=== PATIENT | female | born 1940 | race Caucasian/White ===

== ENCOUNTER → 2020-10-15 16:04 | Outpatient (BNVA) | payer MEDICARE, OTHER, SELFPAY | PROVIDERS: PCP Nurse Practitioner Family; Visit Provider Internal Medicine | DX: J44.9 Chronic obstructive pulmonary disease, unspecified (principal); J30.9 Allergic rhinitis, unspecified; Z79.51 Long term (current) use of inhaled steroids | CPT/HCPCS: Q3014 ==

== ENCOUNTER → 2021-05-07 16:02 | Outpatient (BNVA) | payer MEDICARE, OTHER, SELFPAY | PROVIDERS: PCP Internal Medicine; Visit Provider Internal Medicine | DX: J44.9 Chronic obstructive pulmonary disease, unspecified (principal); J30.9 Allergic rhinitis, unspecified; Z88.4 Allergy status to anesthetic agent; Z88.0 Allergy status to penicillin | CPT/HCPCS: 99212 ==

== ENCOUNTER → 2021-12-15 15:37 | Outpatient (BNVA) | payer MEDICARE, OTHER, SELFPAY | PROVIDERS: PCP Internal Medicine; Visit Provider Internal Medicine | DX: J44.9 Chronic obstructive pulmonary disease, unspecified (principal); J30.9 Allergic rhinitis, unspecified | CPT/HCPCS: 99212 ==

== ENCOUNTER → 2022-09-08 15:13 | Outpatient (BNVA) | payer MEDICARE, OTHER, SELFPAY | PROVIDERS: PCP Internal Medicine; Visit Provider Internal Medicine | DX: J44.9 Chronic obstructive pulmonary disease, unspecified (principal); J30.9 Allergic rhinitis, unspecified | CPT/HCPCS: 99212 ==

== ENCOUNTER 2023-05-03 13:58 | Outpatient (AMB) | payer MEDICARE, OTHER, SELFPAY ==
--- NOTE | 2023-05-03 14:08 | MHC.OFFVIS ---
Intake Vital Signs 05/03/23 14:09 Height 5 ft 5 in Weight 158 lb BMI 26.3 BP 140/70 H Blood Pressure Location Lt brachial Position Sitting Pulse 76 Pulse Source Pulse Oximeter Pulse Oximetry (%) 96 Oxygen Delivery Method Room Air Intake Visit Reasons: COPD Intake Note: pt is here for follow up and states she feels great, only uses proair prn and that is very rare, but she would like a refill to have current inhaler. Please talk about allergies, and would like refill on nasal spray. please make sure pharmacy is [facility] when it is sent. Soaking Pits Supervisor Required: No Allergies Penicillins [PENICILLINS] Allergy (Intermediate, Verified 05/03/23 14:19) RASH halothane [HALOTHANE] Adverse Reaction (Intermediate, Verified 05/03/23 14:19) ELEVATED LIVER ENZYMES Medication List - Last Reconciled 05/03/23 by Conrado Hampton MD Advair Diskus 100-50 mcg/dose (fluticasone propion-salmeterol) 1 ea PO BID NS albuterol sulfate 90 mcg/actuation 2 puffs PO Q6H PRN lisinopril 20 mg PO DAILY montelukast 10 mg PO DAILY Do you need a note to return to daycare/school/sports/work: No HPI COPD HPI Details 83 years old very pleasant female a long-time patient of mine, comes for routine visit after 6 months. Allergic rhinitis and COPD have been well controlled. She has hardly needed to use albuterol HFA, but needs to renew because the 1 she has at home is . Her locomotion is impaired but she walks around with a cane. Lately she has been walking more than usual and restricting her calories, so she has lost weight. She claims that this is intentional. Now she has good appetite. Luckily she has been free of any infections. [facility] Medical History Hypertension COPD (chronic obstructive pulmonary disease) Allergic rhinitis Surgical History No history of previous surgery Family History Mother No problems noted. Father No problems noted. Social History Housing: House Alcohol intake: never Patient Tobacco Use Status: Never used Tobacco e-Cigarette/Vaping Use: Never Used Second Hand Smoke Exposure: No service: No Current occupational status: retired Cognitive needs: No Hearing needs: No Vision needs: No Review of Systems Const All systems reviewed & are unremarkable except as noted in HPI and below Eyes Reports no additional complaints ENT Reports nasal congestion (Mild nasal congestion off and on) Card Denies chest pain, Denies irregular heart rhythm and Reports leg edema (Mild) Resp Reports as per HPI GI Reports no additional complaints Reports no additional complaints Musc Reports back pain (Chronic) and Reports arthralgias (Chronic in knees) Skin/Breast Reports system reviewed and no additional complaints, except as documented Neuro Reports no additional complaints Psych Reports no additional complaints Physical Exam Vital Signs: Last Vital Signs Pulse 76 05/03/23 14:09 BP 140/70 H 05/03/23 14:09 Pulse Ox 96 05/03/23 14:09 Oxygen Delivery Method Room Air 05/03/23 14:09 BMI result Body Mass Index 26.3 Const General: comfortable, no acute distress, alert and awake Orientation/consciousness: patient oriented x3 HEENT Head: Yes normal to inspection General nose exam: No nasal polyps present and No nasal discharge present Face and sinus: Yes sinuses nontender Mouth: oropharynx normal Throat: Yes posterior oropharynx normal Eyes General: appearance normal, both eyes and all related structures Neck Neck: Yes normal visual inspection, Yes no lymphadenopathy, Yes trachea midline and Yes no JVD Thyroid: Thyroid normal Chest Chest palpation & inspection: normal inspection of the chest, normal palpation of entire chest wall and no tenderness Resp Other: Percussion note is resonant. She has good breath sounds on both sides. No wheezes rhonchi or crepitations are heard. Cardio Palpation: normal PMI Rate: regular rate Rhythm: regular rhythm Heart sounds: no gallops and no murmurs Peripheral pulses: Peripheral pulses 2+ throughout GI Palpation (GI): Soft to palpation, nontender, No hepatosplenomegaly present and no masses Auscultation: normal bowel sounds Back/Spine/Pelvis Thoracic/Lumbar Spine: thoracic and lumbar spine normal to inspection, thoraco-lumbar ROM limited and Thoracic/lumbar scoliosis (Mild dextro) Skin General skin exam: no rashes or lesions noted Neuro General: patient oriented x3 and no focal motor deficits Cranial nerves: Yes CN's II-XII intact bilaterally Extrem General: Yes normal to inspection, Yes no calf tenderness and Yes venous stasis dermatitis (Mild stasis edema of both legs) Psych Speech and movement: Normal speech and movement present Assessment & Plan Assessment & Plan (1) COPD (chronic obstructive pulmonary disease): Comment: 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 Currently it is staying very stable, And is advised to continue her regular medical regime:. [place]: Advair 100-50 1 inhalation b.i.d. Albuterol HFA 2 puffs Q 6 hours only p.r.n. Montelukast 10 mg daily Code(s): J44.9 - Chronic obstructive pulmonary disease, unspecified (2) Allergic rhinitis: Comment: SHE HAS HAD VERY CHRONIC ALLERGIC RHINITIS WHICH HAS IMPROVED OVER THE YEARS. CURRENTLY HER SYMPTOMS ARE WELL CONTROLLED WITH THE MONTELUKAST 10 MG DAILY. SHE DOES NOT HAVE TO USE FLONASE OF OR ANTIHISTAMINIC PILLS. Code(s): J30.9 - Allergic rhinitis, unspecified Coding Level of Care Code Est Pt Level 3 (83238) Diagnoses COPD (chronic obstructive pulmonary disease) J44.9 Allergic rhinitis J30.9
[2023-05-03 14:09] VITALS: BP 140/70; PULSE 76; O2SAT 96; BMI 26.3
== END 2023-05-03 14:29 | disposition home or self-care (01) ==
PROVIDERS: PCP Internal Medicine; Visit Provider Internal Medicine
DX: J44.9 Chronic obstructive pulmonary disease, unspecified (principal); J30.9 Allergic rhinitis, unspecified
CPT/HCPCS: 99213

== ENCOUNTER → 2023-05-03 13:58 | Outpatient (BNVA) | payer MEDICARE, OTHER, SELFPAY | PROVIDERS: PCP Internal Medicine; Visit Provider Internal Medicine | DX: J44.9 Chronic obstructive pulmonary disease, unspecified (principal); J30.9 Allergic rhinitis, unspecified; Z79.899 Other long term (current) drug therapy | CPT/HCPCS: 99212 ==

== ENCOUNTER 2023-12-12 14:35 | Outpatient (AMB) | payer MEDICARE, OTHER, SELFPAY ==
[2023-12-12 14:44] VITALS: BP 128/68; PULSE 64; O2SAT 97; BMI 25.8
--- NOTE | 2023-12-12 14:44 | A.OFFVIS_ITS ---
Vital Signs 12/12/23 14:44 Height 5 ft 5 in Weight 155 lb BMI 25.8 BP 128/68 Blood Pressure Location Lt brachial Position Sitting Pulse 64 Pulse Source Pulse Oximeter Pulse Oximetry (%) 97 Oxygen Delivery Method Room Air Intake Visit Reasons: COPD Intake Note: pt is here for follow up and states she is feeling fine Hogshead Weigher Required: No Allergies Penicillins [PENICILLINS] Allergy (Intermediate, Verified 12/12/23 15:01) RASH halothane [HALOTHANE] Adverse Reaction (Intermediate, Verified 12/12/23 15:01) ELEVATED LIVER ENZYMES Medication List - Last Reconciled 12/12/23 by Conrado Hampton MD albuterol sulfate 90 mcg/actuation 2 puffs inhalation Q4-6H PRN 60 days fluticasone propion-salmeterol 100-50 mcg/dose 1 ea PO BID NS lisinopril 20 mg PO DAILY montelukast 10 mg PO DAILY Do you need a note to return to daycare/school/sports/work: No HPI HPI COPD: Details: KEELY IS 83 YEARS OLD FEMALE COMES AFTER 6 MONTHS. FOR HER ROUTINE FOLLOW-UP SHE STATES THAT HER CONDITION HAS BEEN STABLE AND WELL CONTROLLED. SHE DENIES ANY RUNNY NOSE OR SNEEZING. DENIES COUGH OR EXPECTORATION. SHE DOES GET SHORT OF BREATH ON WALKING FAST. BUT HER LOCOMOTION IS SLOW AND SHE WALKS WITH A WALKER ANYWAY. SHE IS HAPPY THAT SHE HAS NOT HAD ANY ACUTE EXACERBATION OR INFECTION. [facility] Medical History Hypertension COPD (chronic obstructive pulmonary disease) Allergic rhinitis Surgical History No history of previous surgery Family History Mother No problems noted. Father No problems noted. Social History Housing: House Alcohol intake: never Patient Tobacco Use Status: Never used Tobacco e-Cigarette/Vaping Use: Never Used Second Hand Smoke Exposure: No service: No Current occupational status: retired Cognitive needs: No Hearing needs: No Vision needs: No Review of Systems Const All systems reviewed & are unremarkable except as noted in HPI and below Eyes Reports no additional complaints ENT Reports nasal congestion (Mild nasal congestion off and on) Card Denies chest pain, Denies irregular heart rhythm and Reports leg edema (Mild) Resp Reports as per HPI GI Reports no additional complaints Reports no additional complaints Musc Reports back pain (Chronic) and Reports arthralgias (Chronic in knees) Skin/Breast Reports system reviewed and no additional complaints, except as documented Neuro Reports no additional complaints Psych Reports no additional complaints Physical Exam Vital Signs: Last Vital Signs Pulse 64 12/12/23 14:44 BP 128/68 12/12/23 14:44 Pulse Ox 97 12/12/23 14:44 Oxygen Delivery Method Room Air 12/12/23 14:44 BMI result Body Mass Index 25.8 Const General: comfortable, no acute distress, alert and awake Orientation/consciousness: patient oriented x3 HEENT Head: Yes normal to inspection General nose exam: No nasal polyps present and No nasal discharge present Face and sinus: Yes sinuses nontender Mouth: oropharynx normal Throat: Yes posterior oropharynx normal Eyes General: appearance normal, both eyes and all related structures Neck Neck: Yes normal visual inspection, Yes no lymphadenopathy, Yes trachea midline and Yes no JVD Thyroid: Thyroid normal Chest Chest palpation & inspection: normal inspection of the chest, normal palpation of entire chest wall and no tenderness Resp Other: Percussion note is resonant. She has good breath sounds on both sides. No wheezes rhonchi or crepitations are heard. Cardio Palpation: normal PMI Rate: regular rate Rhythm: regular rhythm Heart sounds: no gallops and no murmurs Peripheral pulses: Peripheral pulses 2+ throughout GI Palpation (GI): Soft to palpation, nontender, No hepatosplenomegaly present and no masses Auscultation: normal bowel sounds Back/Spine/Pelvis Thoracic/Lumbar Spine: thoracic and lumbar spine normal to inspection, thoraco- lumbar ROM limited and Thoracic/lumbar scoliosis (Mild dextro) Skin General skin exam: no rashes or lesions noted Neuro General: patient oriented x3 and no focal motor deficits Cranial nerves: Yes CN's II-XII intact bilaterally Extrem General: Yes normal to inspection, Yes no calf tenderness and Yes venous stasis dermatitis (Mild stasis edema of both legs) Psych Speech and movement: Normal speech and movement present Assessment & Plan Assessment & Plan (1) COPD (chronic obstructive pulmonary disease): Comment: 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 Currently it is staying very stable, And is advised to continue her regular medical regime:. Code(s): J44.9 - Chronic obstructive pulmonary disease, unspecified Category: Medical Plan: [place]: Advair 100-50 1 inhalation b.i.d. Albuterol HFA 2 puffs Q 6 hours only p.r.n. Montelukast 10 mg daily (2) Allergic rhinitis: Comment: SHE HAS HAD VERY CHRONIC ALLERGIC RHINITIS WHICH HAS IMPROVED OVER THE YEARS. CURRENTLY HER SYMPTOMS ARE WELL CONTROLLED WITH THE MONTELUKAST 10 MG DAILY. SHE DOES NOT HAVE TO USE FLONASE OF OR ANTIHISTAMINIC PILLS. Code(s): J30.9 - Allergic rhinitis, unspecified Category: Medical Plan: I DISCUSSED WITH FOR POSSIBILITY OF DISCONTINUING MONTELUKAST. SHE ACTUALLY DOES NOT WANT TO TAKE A CHANCE. AND PREFERS TO CONTINUE MONTELUKAST 10 MG DAILY. Coding Level of Care Code Est Pt Level 3 (84509) Diagnoses COPD (chronic obstructive pulmonary disease) J44.9 Allergic rhinitis J30.9
== END 2023-12-12 15:30 ==
PROVIDERS: PCP Internal Medicine; Visit Provider Internal Medicine
DX: J44.9 Chronic obstructive pulmonary disease, unspecified (principal); J30.9 Allergic rhinitis, unspecified
CPT/HCPCS: 99213

== ENCOUNTER → 2023-12-12 14:35 | Outpatient (BNVA) | payer MEDICARE, OTHER, SELFPAY | PROVIDERS: PCP Internal Medicine; Visit Provider Internal Medicine | DX: J44.9 Chronic obstructive pulmonary disease, unspecified (principal); J30.9 Allergic rhinitis, unspecified | CPT/HCPCS: 99212 ==

== ENCOUNTER 2024-04-12 13:37 | Outpatient (AMB) | payer MEDICARE, OTHER, SELFPAY ==
[2024-04-12 13:42] VITALS: BP 140/82; PULSE 52; TEMP 36.7; O2SAT 95; BMI 24.6
--- NOTE | 2024-04-12 13:42 | AM.OFFWIN_ITS ---
Intake Vital Signs 04/12/24 13:42 Height 5 ft 5 in Weight 148 lb BMI 24.6 BP 140/82 H Blood Pressure Location Lt brachial Position Sitting Pulse 52 Pulse Source Pulse Oximeter Temp 98.0 F Temp Source Oral Pulse Oximetry (%) 95 Oxygen Delivery Method Room Air Intake Visit Reasons: SENIOR ADVOCATE Sore on leg, infected? Intake Note: pt c/o sore on LT leg. ? infection. Ongoing issues. From scratching rash Patient Tobacco Use Status: Never used Tobacco Allergies Penicillins [PENICILLINS] Allergy (Intermediate, Verified 04/12/24 13:48) RASH halothane [HALOTHANE] Adverse Reaction (Intermediate, Verified 04/12/24 13:48) ELEVATED LIVER ENZYMES Do you need a note to return to daycare/school/sports/work: No HPI HPI Comments History of Present Illness Details 84 y/o female patient who presents to [facility] walk in clinic with c/o left lower extremity swelling, redness, tender and open skin. Pt reports noticing her leg changing in past 2-3 weeks now. Noticed open skin sores draining pus. She has not a doctor in over a year now. She is a new patient to [facility] and not much is known about her health. She does endorse HTN and takes Lisinopril plus COPD and currently uses Inhalers. Denies Kidney failure or disease. Denies CHF, HF, liver failure. [facility] Medical History Hypertension COPD (chronic obstructive pulmonary disease) Allergic rhinitis Surgical History No history of previous surgery Family History Mother No problems noted. Father No problems noted. Social History Housing: House Alcohol intake: never Patient Tobacco Use Status: Never used Tobacco e-Cigarette/Vaping Use: Never Used Second Hand Smoke Exposure: No service: No Current occupational status: retired Cognitive needs: No Hearing needs: No Vision needs: No Review of Systems Const All systems reviewed & are unremarkable except as noted in HPI and below Physical Exam Vital Signs: Last Vital Signs Temp 98.0 F 09/12/24 13:42 Pulse 52 04/12/24 13:42 BP 140/82 H 04/12/24 13:42 Pulse Ox 95 04/12/24 13:42 Oxygen Delivery Method Room Air 04/12/24 13:42 BMI result Body Mass Index 24.6 Const General: cooperative and no acute distress Orientation/consciousness: patient oriented x3 Limitations: ambulation with walker Skin General skin exam: erythema and induration Neuro General: patient oriented x3 and gait normal (Ambulates with Walker) Extrem Right lower extremity: lower leg Details: pitting edema Details: 1+; no tenderness Left lower extremity: full ROM and lower leg (two large open sores right leg, with redness and pus) Details: erythema Location: of the proximal lower leg, of the mid lower leg and of the distal lower leg, tenderness Location: of the posterior calf, of the proximal tibia, of the midshaft tibia and of the distal tibia, pitting edema (Skin firm/hard edema and tenderness.) Details: 2+ and warmth Psych Speech and movement: Normal speech and movement present Assessment & Plan Assessment & Plan (1) Peripheral edema: Code(s): R60.0 - Localized edema Plan: DDx's: Cellulitis vs Venous Stasis Dermatitis vs MRSA Advised Pt to go to the ED for further evaluation. She might need IV Abx. Pt's Son will be driving her to the ED. Coding Level of Care Code New Pt Level 3 (84373) Diagnoses Peripheral edema R60.0 Time Spent (min) 15
== END 2024-04-12 14:11 | disposition home or self-care (01) ==
PROVIDERS: PCP Internal Medicine; Visit Provider Nurse Practitioner Family
DX: R60.0 Localized edema (principal)
CPT/HCPCS: 99203

== ENCOUNTER 2024-04-12 14:27 | Inpatient (IN) | payer MEDICARE, OTHER, SELFPAY ==
--- NOTE | ~2024-04-12 | US_ITS ---
EXAMINATION: US TRIPLEX LOWER EXTREMITY, LEFT CLINICAL INFORMATION: Redness COMPARISON: None available. TECHNIQUE: Color-flow triplex imaging with spectral analysis and compression Doppler were performed on the left lower extremity. FINDINGS: Deep venous thrombosis is noted in the left common femoral vein through the level of the popliteal vein which appears occlusive at the level of the mid femoral vein. There is loss of phasicity on spectral Doppler in the left common femoral vein suggesting the deep venous thrombus may extend centrally.. The peroneal and posterior tibial veins are not identified. Moderate subcutaneous edema in the left lower extremity. The contralateral right common femoral vein demonstrates normal phasicity. There is no Cantu's cyst. US/US venous duplex LE IMPRESSION: 1. Deep venous thrombosis is noted in the left common femoral vein through the level of the popliteal vein which appears occlusive at the level of the mid femoral vein. There is loss of phasicity on spectral Doppler in the left common femoral vein suggesting the deep venous thrombus may extend centrally into the pelvis. The peroneal and posterior tibial veins are not identified. 2. The contralateral right common femoral vein demonstrates normal phasicity. 3. Moderate subcutaneous edema in the left lower extremity. The findings and recommendations were discussed with ALONZO Reagan by telephone at 04/12/2024 4:31 PM CDT and it was ascertained that the content and urgency of the report was understood at the time of direct communication. Electronically signed by: Leslie Ladd MD 04/12/2024 05:32 PM EDT
--- NOTE | ~2024-04-12 | XR_ITS ---
STUDY: Tibia/fibula radiographs. HISTORY: Left leg redness. Question osteomyelitis. TECHNIQUE: 4 radiographs of the left tibia and fibula were performed. COMPARISON: None available. FINDINGS: No fracture or dislocation. No evidence of osteomyelitis. There is severe degenerative disease of the left knee joint. The regional soft tissue appears grossly normal. XR/XR tibia fibula LT 2V IMPRESSION: No fracture or dislocation. No evidence of osteomyelitis. 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 Electronically signed by: Anish Hood DO 04/12/2024 06:20 PM EDT
--- NOTE | ~2024-04-12 | CT_ITS ---
EXAMINATION: CT ANGIOGRAM CHEST CLINICAL INFORMATION: Reason for Exam large DVT COMPARISON: 06/22/2019 TECHNIQUE: Multiple axial images were obtained through the chest after the administration of 65 mL of Omnipaque 350 intravenous contrast. Extensive vascular post-processing including two-dimensional and three-dimensional reformatted images were created and reviewed on an independent workstation. This CT examination was performed using dose optimization techniques as appropriate, variously including the following: *Automated exposure control *Adjustment of mA and/or kV according to patient size (this includes techniques or standardized protocols for targeted exams where dose is matched to indication/reason for exam; i.e. extremities or head) *Use of iterative reconstruction technique DLP: 225 mGy-cm FINDINGS: No filling defects are seen in the main, lobar, or segmental pulmonary arteries to suggest the presence of pulmonary emboli. Prominent ascending aorta measuring approximately 4.0 cm in diameter. Scattered atherosclerotic calcification is present. There are regions of curvilinear opacity in the right middle and lower lobes with some associated volume loss, suspicious for atelectasis and/or scarring. Mild atelectasis is present at the left lung base. There is an approximately 3 mm nodule in the superior left lower lobe on image 150/451 which appears similar to slightly less prominent than on the prior examination, favoring a benign etiology. A few tiny calcified nodules bilaterally favor benign granulomas. No pneumothorax or pleural effusion. The visualized thyroid gland is unremarkable. There are subcentimeter mediastinal lymph nodes within the range of normal variation. Cardiac size is within normal limits; no pericardial effusion. No axillary lymphadenopathy is present. Included upper abdomen is grossly unremarkable. Degenerative changes are noted in the spine. CT/CT angio chest PE protocol IMPRESSION: 1. No pulmonary embolus identified. 2. Prominent ascending aorta measuring approximately 4.0 cm in diameter. 3. Regions of curvilinear opacity in the right middle and lower lobes with some associated volume loss, suspicious for atelectasis and/or scarring. Electronically signed by: Kip Terrell MD 04/13/2024 12:01 AM EDT RACHEL
[2024-04-12 15:11] VITALS: BP 188/76; PULSE 70; RESP 16; TEMP 36.9; O2SAT 98; BMI 23.9
--- NOTE | 2024-04-12 15:15 | ED_ITS ---
HPI - General Adult General Chief complaint: Skin/Abscess/Foreign Body Stated complaint: L leg infection Time Seen by Provider: 04/12/24 17:51 Source: patient, RN notes reviewed and old records reviewed Mode of arrival: ambulatory Limitations: no limitations History of Present Illness ED Provider: Ten PENA narrative: 84-year-old female with past medical history significant for hypertension, COPD, chronic dermatitis presents for evaluation of left leg swelling and redness. Patient reports she has had itching to the left lower leg for the last several weeks. Patient states that she accidentally broke through the skin while scratching her left lower leg towards the outside Since then her left lower leg has become significantly more swollen compared to the right She still has some itching but is now experiencing redness She denies any pain to the left leg She denies any chest pain, shortness of breath, cough She denies any history of DVT or PE, she is not anticoagulated She also denies any fevers or chills Related Data Previous Rx's ?Medication ?Instructions ?Recorded montelukast 10 mg tablet 10 mg PO DAILY #90 tabs 10/31/22 lisinopril 20 mg tablet 20 mg PO DAILY #90 tabs 02/28/23 albuterol sulfate 90 mcg/actuation 2 puff inhalation Q4-6H PRN 05/03/23 aerosol inhaler shortness of breath or wheezing 60 days #8.5 grams fluticasone 100 mcg-salmeterol 50 1 ea PO BID copd 90 days #60 ea 01/30/24 mcg/dose blistr powdr for inhalation Allergies Allergy/AdvReac Type Severity Reaction Status Date / Time Penicillins [PENICILLINS] Allergy Intermediate RASH Verified 04/12/24 15:11 halothane [HALOTHANE] AdvReac Intermediate ELEVATED Verified 04/12/24 15:11 LIVER ENZYMES Review of Systems 2 Constitutional: Constitutional: Denies body ache(s), Denies chills and Denies fever(s) Cardiovascular: Cardiovascular: Denies chest pain, Reports leg edema and Denies dyspnea Respiratory: Respiratory: Denies cough and Denies dyspnea Integumentary/Breasts: Skin/Breast: Reports pruritus and Reports erythema PMFSH Past Medical History Medical History Hypertension COPD (chronic obstructive pulmonary disease) Allergic rhinitis Surgical History No history of previous surgery Family History Family History Mother No problems noted. Father No problems noted. Social History Social History Housing: House Alcohol intake: never Patient Tobacco Use Status: Never used Tobacco e-Cigarette/Vaping Use: Never Used Second Hand Smoke Exposure: No Advance Directives: No Advance Directives Information Provided: No Do you have a plan to hurt others: No Plan service: No Current occupational status: retired Cognitive needs: No Hearing needs: No Vision needs: No Physical Exam ED Vital Signs: Vital Signs - 24 hr 04/12/24 15:11 04/12/24 23:05 Temperature 98.5 F 97.7 F Pulse Rate 70 72 Respiratory Rate 16 20 Blood Pressure 188/76 H 140/53 H Pulse Oximetry 98 96 Oxygen Delivery Method Room Air Room Air BMI result Body Mass Index 24.4 Const General: healthy appearing, comfortable, no acute distress, alert and awake Nutritional Appearance: well nourished Orientation/consciousness: patient oriented x3 HENMT Head: Yes normocephalic and Yes atraumatic Eyes Eyelids: Yes eyelids normal Conjunctivae: conjunctivae normal Sclerae: sclerae normal Corneas: corneas normal Pupils: Equal, round and reactive pupils present EOM: EOMs intact bilaterally Resp Effort & Inspection: normal respiratory effort, able to speak in complete sentences, no audible wheezes and not labored Auscultation: clear to auscultation bilaterally Cardio Other: 2 to 3+ pitting edema to the left lower extremity Rate: regular rate Rhythm: regular rhythm Skin Other: Patient has 2 separate scabbed areas to the left lower lateral leg. There is some surrounding erythema extending approximately 10 cm in diameter to the left lateral lower leg. There is no calf tenderness General skin exam: elasticity normal Neuro General: patient oriented x3 Cranial nerves: Yes Equal, round and reactive pupils present and Yes Bilaterally intact EOM present Cognition (Neuro): normal cognition Course Course Course Narrative: RME: Done by ALONZO Griggs. 84-year-old female presents to ED for left leg redness and swelling for the past 3 weeks after scratching it. Patient has a left leg ulcer slightly oozing on exam. Left leg redness swelling and tender. Labs ultrasound x-ray ordered. Reevaluation(s) Reevaluation #1: Given the extensive DVT on ultrasound, CT is still pending, but I discussed with Dr. Stern regarding the DVT. He would like the patient admitted on a heparin drip for the DVT and admitted to the medical service, NPO after midnight for declotting tomorrow. I did discuss this with the patient and she is aware Time: 20:36 Medications Administered Generic Name Dose Route Start Last Admin Trade Name Freq PRN Reason Stop Dose Admin Heparin Sodium/Sodium Chloride 25,000 unit in 250 mls @ 0 mls/hr 04/12/24 21:00 04/12/24 21:15 Heparin Sodium,Porcine/1/2ns IVCONT 14 units/kg/hr .Q0M JHONNY 9.62 mls/hr Administration Protocol Per Protocol Discontinued Medications Generic Name Dose Route Start Last Admin Trade Name Freq PRN Reason Stop Dose Admin Heparin Sodium (Porcine) 5,500 unit 04/12/24 20:51 04/12/24 21:17 Heparin Sodium,Porcine 5,000 Unit/Ml Vial 80 unit/kg (5500 unit) 04/12/24 20:52 5,500 unit IVPUSH Administration ONCE ONE Iohexol 65 ml 04/12/24 20:42 04/12/24 20:43 Iohexol 350 Mg/Ml 100 Ml Infus..Btl IV 04/12/24 20:43 65 ml ONCE ONE Administration Medical Decision Making Medical Decision Making [facility] Narrative: 84-year-old female presents for evaluation of left leg redness, swelling. She has no pain. She is afebrile. She did scratching break the skin. She has no leukocytosis. There is some surrounding erythema. She had an ultrasound ordered in triage which shows a large DVT of the left lower extremity. Given how extensive the DVT is, despite the patient not having any respiratory symptoms I ordered a CT angiography of the chest. Will discuss with vascular. The patient may have mild cellulitis surrounding the scratches/abrasions to the left lower lateral leg. There was no evidence of sepsis. Differential Diagnosis Differential Diagnoses: The differential diagnosis associated with the presentation includes DVT Cellulitis Dermatitis PE Admission/Observation Consideration of admission/observation: Escalation of care including admission/observation considered Consult Healthcare Provider Management of the patient was discussed with: Eligibility Counselor Lab Data MDM Lab Attestation statement: I reviewed the patient's lab results. No leukocytosis or anemia. Normal platelet count. No electrolyte abnormalities. Normal renal function 04/12/24 15:49 04/12/24 15:49 Labs: Lab Results 04/12/24 04/12/24 Range/Units 15:49 21:09 WBC 8.0 (4.8-10.8) X10*3/uL RBC 4.55 (4.20-5.50) X10*6/uL Hgb 14.2 (12.0-16.0) g/dl Hct 42.4 (37.0-47.0) % MCV 93.2 (80.0-98.0) fL MCH 31.2 (27.0-33.0) pg MCHC 33.5 (31.0-35.0) g/dl RDW 12.6 (11.0-16.0) % Plt Count 322 (160-400) X10*3/uL MPV 9.6 (9.4-12.3) fL Immature Gran % (Auto) 0.7 H (0.0-0.4) % Neut % (Auto) 75.5 H (45-73) % Lymph % (Auto) 12.8 L (20-40) % [place] % (Auto) 6.1 (2-11) % Eos % (Auto) 3.9 (0-4) % Baso % (Auto) 1.0 (0-2) % Lymph # (Auto) 1.0 L (1.2-4.9) X10*3/uL [place] # (Auto) 0.5 (0.1-1.2) X10*3/uL Eos # (Auto) 0.3 (0.0-0.4) X10*3/uL Baso # (Auto) 0.1 (0.0-0.2) X10*3/uL Abs Immat Gran (auto) 0.06 H (0.00-0.03) X10*3/uL Absolute Neuts (auto) 6.1 (2.0-8.3) x10*3/uL Absolute Nucleated RBC 0.000 (0.0-0.012) X10*3/uL Nucleated RBC % (auto) 0.0 (0.0-0.2) /100WBC ESR 16 (0-20) MM/HR PT 11.3 (11.1-13.3) SEC INR 0.9 (0.9-1.1) APTT 32.3 (26.0-36.8) SEC aPTT Heparin Protocol 34.5 L (53-77.9) SEC Sodium 143 (135-145) mmol/L Potassium 4.5 (3.3-5.1) mmol/L Chloride 108 (96-108) mmol/L Carbon Dioxide 26 (22-29) mmol/L Anion Gap 14 (12-20) BUN 13 (9-16) mg/dL Creatinine 1.05 (0.5-1.4) mg/dL Estim Creat Clear Calc 37.3 Estimated GFR 50 Random Glucose 100 (60-115) mg/dL Calcium 10.0 (8.4-10.2) mg/dL Total Bilirubin 0.5 (0.0-1.0) mg/dL AST 17 (5-31) U/L ALT 12 (0-31) U/L Alkaline Phosphatase 79 (39-117) U/L C-Reactive Protein 0.18 (< or = 0.50) mg/dL Total Protein 7.0 (6.5-8.0) g/dL Albumin 4.3 (3.5-5.0) g/dL Independent Interpretation I performed an independent interpretation of an: CT Scan Interpretation: Agree with Radiology interpretation Radiology Impression Discussion of test interpretation with radiology: I have reviewed the radiologist's reading. Radiologist Impression: CT/CT angio chest PE protocol IMPRESSION: 1. No pulmonary embolus identified. 2. Prominent ascending aorta measuring approximately 4.0 cm in diameter. 3. Regions of curvilinear opacity in the right middle and lower lobes with some associated volume loss, suspicious for atelectasis and/or scarring. Discharge Plan Discharge Clinical Impression: Acute deep vein thrombosis of left lower extremity Patient Disposition: Admitted As Inpatient Print Language: Belgian
[2024-04-12 15:53] LABS: MANUAL DIFF FLAG NO
[2024-04-12 15:54] LABS: Eosinophils Absolute Auto 0.3 X10*3/uL (0.0-0.4); Eosinophils Percent Auto 3.9 % (0-4); Hematocrit 42.4 % (37.0-47.0); Hemoglobin 14.2 g/dl (12.0-16.0); Imm Gran Abs Auto 0.06 X10*3/uL (0.00-0.03); Imm Gran Pct Auto 0.7 % (0.0-0.4); Lymphocytes Percent Auto 12.8 % (20-40); Mean Corpuscular HGB Conc 33.5 g/dl (31.0-35.0); Mean Corpuscular Hemoglobin 31.2 pg (27.0-33.0); Mean Corpuscular Volume 93.2 fL (80.0-98.0); Mean Platelet Volume 9.6 fL (9.4-12.3); Monocytes Absolute Auto 0.5 X10*3/uL (0.1-1.2); Monocytes Percent Auto 6.1 % (2-11); Neutrophils Absolute Auto 6.1 x10*3/uL (2.0-8.3); Neutrophils Percent Auto 75.5 % (45-73); Platelet Count 322 X10*3/uL (160-400); Red Blood Count 4.55 X10*6/uL (4.20-5.50); Red Cell Distribution Width 12.6 % (11.0-16.0)
[2024-04-12 15:55] LABS: Basophils Absolute Auto 0.1 X10*3/uL (0.0-0.2)
[2024-04-12 16:10] LABS: Alanine Aminotransferase 12 U/L (0-31); Albumin Level 4.3 g/dL (3.5-5.0); Alkaline Phosphatase 79 U/L (39-117); Anion Gap 14 (12-20); Aspartate Amino Transferase 17 U/L (5-31); Bilirubin Total 0.5 mg/dL (0.0-1.0); Blood Urea Nitrogen 13 mg/dL (9-16); C Reactive Protein 0.18 mg/dL (< or = 0.50); Carbon Dioxide 26 mmol/L (22-29); Chloride 108 mmol/L (96-108); Creatinine Clr Calc Pharmacy 37.3; Estimated Glomerular Filt Rate 50; Glucose Random 100 mg/dL (60-115); Potassium 4.5 mmol/L (3.3-5.1); Sodium 143 mmol/L (135-145)
[2024-04-12 16:11] LABS: INTERNATIONAL NORM RATIO 0.9 (0.9-1.1); Prothrombin Time 11.3 SEC (11.1-13.3)
[2024-04-12 16:14] LABS: Partial Thromboplastin Time 32.3 SEC (26.0-36.8)
[2024-04-12 16:32] LABS: Erythrocyte Sedimentation Rate 16 MM/HR (0-20)
[2024-04-12] MEDS: iohexoL 350 MG/ML 100 ML INFUS..BTL 65 ML IV (20:43)
[2024-04-12 20:44] VITALS: BMI 24.4
[2024-04-12] MEDS: Heparin Sodium,Porcine/1/2NS 25,000 UNIT/250 ML IV.SOLN 9.62 UNIT IVCONT (21:15)
[2024-04-12] MEDS: Heparin Sodium,Porcine 5,000 UNIT/ML VIAL 5500 UNIT IVPUSH (21:17)
[2024-04-12 21:32] LABS: PTT Heparin Drip 34.5 SEC (53-77.9)
[2024-04-12 23:05] VITALS: BP 140/53; PULSE 72; RESP 20; TEMP 36.5; O2SAT 96
[2024-04-13] VITALS (10 sets, daily range): BP systolic 115–148; BP diastolic 50–74; PULSE 40–88; RESP 12–18; TEMP 36–37.1; O2SAT 94–99
--- NOTE | 2024-04-13 01:26 | P.HPHOSP_ITS ---
History of Present Illness Date of Service: 04/13/24 Chief Complaint: left leg swelling and redness An 84-year-old female with COPD and hypertension who presented to her PCP's office with 3 weeks of noticing her leg changing. She reported increased swelling in the left leg, along with recent itching and redness, but no pain. Upon evaluation at the PCP office, there was concern for cellulitis, and she was sent to the ED for possible IV antibiotics. A DVT study of the left leg showed Deep venous thrombosis is noted in the left common femoral vein through the level of the popliteal vein, which appears occlusive at the level of the mid femoral vein. There is loss of phasicity on spectral Doppler in the left common femoral vein, suggesting the deep venous thrombus may extend centrally into the pelvis. IV heparin was initiated, and vascular surgery was notified. Dr. Manzo is planning declotting in the morning. She has no recent long trips, no personal history of VTEs, and is not sedentary. A CT of the chest show no PE Review of Systems 2 Review of Systems: Gen: no fever Resp: no sob, no cough CV: no chest, no STAUFFER, no leg edema GI: No n/v, no abd pain Neuro: No confusion MS: swelling inthe left leg Yes all other systems are reviewed and are negative FORMERLY [facility], [facility]1983 Medical History Hypertension COPD (chronic obstructive pulmonary disease) Allergic rhinitis Family History Mother No problems noted. Father No problems noted. Surgical History No history of previous surgery Social History Household Members: Children Housing: House Do you presently have visiting nurse or other home services: No Alcohol intake: never Patient Tobacco Use Status: Never used Tobacco e-Cigarette/Vaping Use: Never Used Second Hand Smoke Exposure: No service: No Current occupational status: retired Cognitive needs: No Hearing needs: No Vision needs: No Meds Allergies Allergy/AdvReac Type Severity Reaction Status Date / Time Penicillins [PENICILLINS] Allergy Intermediate RASH Verified 04/13/24 12:46 halothane [HALOTHANE] AdvReac Intermediate ELEVATED Verified 04/13/24 12:46 LIVER ENZYMES Active Medications: Current Medications Heparin Sodium (Porcine) (Heparin Sodium,Porcine 5,000 Unit/Ml Vial) 2,700 unit 40 unit/kg (2700 unit) IVPUSH PROTOCOL BOLUS PRN; Protocol PRN Reason: 40 unit/kg - Heparin Protocol Heparin Sodium (Porcine) (Heparin Sodium,Porcine 5,000 Unit/Ml Vial) 5,500 unit 80 unit/kg (5500 unit) IVPUSH PROTOCOL BOLUS PRN; Protocol PRN Reason: 80 unit/kg - Heparin Protocol Heparin Sodium/Sodium Chloride (Heparin Sodium,Porcine/1/2ns) 25,000 unit in 250 mls @ 0 mls/hr IVCONT .Q0M JHONNY; Protocol Last Admin: 04/12/24 21:15 Dose: 14 units/kg/hr, 9.62 mls/hr Physical Exam 2 Vital Signs and Narrative: Vital Signs: Last Vital Signs Temp 97.7 F 04/12/24 23:05 Pulse 72 04/12/24 23:05 Resp 20 04/12/24 23:05 BP 140/53 H 04/12/24 23:05 Pulse Ox 96 04/12/24 23:05 O2 Del Method Room Air 04/12/24 23:05 BMI result Body Mass Index 24.4 Const: Other: Constitutional: Alert, in no distress Mental Status: Oriented to person, place and time. Eyes: Pupils are equal, round and reactive to light. Ear, Nose and Throat: Oropharynx clear, mucous membranes moist. Ears and nose without deformities. Trachea midline. Respiratory: Clear to auscultation. No wheezing, rales or rhonchi. Cardiovascular: S1 S2 regular. No murmurs, rubs or gallops. Gastrointestinal: Abdomen soft, non-tender, non-distended. Normal bowel sounds.? Neurologic: Cranial nerves II-XII grossly intact. No focal neurological deficits. Moves all extremities spontaneously.? Skin: redness of the left leg--see pic Musculoskeletal: No cyanosis or clubbing. Psychiatric: Normal mood and affect? Results Labs 04/13/24 03:06 04/13/24 03:06 Labs: Laboratory Results - last 24 hr 04/12/24 04/12/24 15:49 21:09 MCV 93.2 MCH 31.2 MCHC 33.5 RDW 12.6 Plt Count 322 MPV 9.6 Immature Gran % (Auto) 0.7 H Neut % (Auto) 75.5 H Lymph % (Auto) 12.8 L [place] % (Auto) 6.1 Eos % (Auto) 3.9 Baso % (Auto) 1.0 Lymph # (Auto) 1.0 L [place] # (Auto) 0.5 Eos # (Auto) 0.3 Baso # (Auto) 0.1 Abs Immat Gran (auto) 0.06 H Absolute Neuts (auto) 6.1 Absolute Nucleated RBC 0.000 Nucleated RBC % (auto) 0.0 ESR 16 PT 11.3 INR 0.9 APTT 32.3 aPTT Heparin Protocol 34.5 L Anion Gap 14 Estim Creat Clear Calc 37.3 Estimated GFR 50 Random Glucose 100 Calcium 10.0 Total Bilirubin 0.5 AST 17 ALT 12 Alkaline Phosphatase 79 C-Reactive Protein 0.18 Total Protein 7.0 Albumin 4.3 Imaging Radiologist's Impressions: Impressions Tibia/Fibula X-Ray 04/12/24 15:13 IMPRESSION: No fracture or dislocation. No evidence of osteomyelitis. 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 Electronically signed by: Anish Hood DO 04/12/2024 06:20 PM EDT RP Venous Duplex 04/12/24 16:09 IMPRESSION: 1. Deep venous thrombosis is noted in the left common femoral vein through the level of the popliteal vein which appears occlusive at the level of the mid femoral vein. There is loss of phasicity on spectral Doppler in the left common femoral vein suggesting the deep venous thrombus may extend centrally into the pelvis. The peroneal and posterior tibial veins are not identified. 2. The contralateral right common femoral vein demonstrates normal phasicity. 3. Moderate subcutaneous edema in the left lower extremity. The findings and recommendations were discussed with ALONZO Reagan by telephone at 04/12/2024 4:31 PM CDT and it was ascertained that the content and urgency of the report was understood at the time of direct communication. Electronically signed by: Leslie Ladd MD 04/12/2024 05:32 PM EDT RP Chest CTA 04/12/24 19:19 IMPRESSION: 1. No pulmonary embolus identified. 2. Prominent ascending aorta measuring approximately 4.0 cm in diameter. 3. Regions of curvilinear opacity in the right middle and lower lobes with some associated volume loss, suspicious for atelectasis and/or scarring. Electronically signed by: Kip Terrell MD 04/13/2024 12:01 AM EDT RP Assessment and Plan (1) Acute deep vein thrombosis of left lower extremity: Status: Acute (2) Hypertension: Status: Acute (3) COPD (chronic obstructive pulmonary disease): Status: Acute Plan 84/F with unprovoked Left leg DVT, and superimposed cellulitis of the limb Extensive DVT of the left lower extremity, no PE on CT -IV heparin to be transitioned to eliquis for dc -Vascular consult for declotting -NPO Cellulitis of the left leg -IV doxycyline HTN-BP ok -resume Lisinopril in the morning h/o COPD/asthma--no exacerbation -continue home inhalers DVT p: heparin Full code need for inpatient: IV heparin for extensive acute dvt and need for intervention Quality Stroke Does the patient have a stroke diagnosis?: No VTE Prior VTE?: No VTE Risk Level:: Medical - moderate - high VTE Device Contraindication: Treatment Not Indicated VTE Drug Contraindication: N/A - Med Ordered
--- OUTSIDE RECORDS SUMMARY | 2024-04-13 01:56 | XMS_ITS ---
Author Organization [facility] Address [address] [place] [address] Care Team Providers Care Wine Specialist Name Role Phone Boubacar Delarosa MD Primary Care Provider Unavaila Concepción Maldonado Unavailable [phone] REASON FOR VISIT cx 01/25/2024 Encounters Encounter Location Date Provider Diagnosis [facility] [address] [place] [address] 01/23/2024 Concepción Solis PLAN OF TREATMENT No Information
--- OUTSIDE RECORDS SUMMARY | 2024-04-13 01:56 | XMS_ITS ---
Author Organization [facility] Address [address] [place] [address] Care Team Providers Care Oxygen Therapist Name Role Phone Boubacar Delarosa MD Primary Care Provider Unavaila Concepción Maldonado Unavailable [phone] Encounters Encounter Location Date Provider Diagnosis [facility] [address] [place] [address] 01/25/2024 Concepción Solis PLAN OF TREATMENT No Information
--- OUTSIDE RECORDS SUMMARY | 2024-04-13 01:56 | XMS_ITS | Patient Health Record ---
Author Organization [facility] Address [address] [place] [address] Care Team Providers Care Home Care Manager Rn Name Role Phone Boubacar Delarosa MD Primary Care Provider Concepción Law Unavailable [phone] ALLERGIES Allergen (clinical drug ingredient) Drug/Non Drug Allergy documented on EMR Reaction Allergy Type Onset Date Status amoxicillin Amoxicillin hives Drug Allergy Act nadeen Penicillin mouth sores Drug Allergy Acti ve REASON FOR REFERRAL No Information MEDICATIONS Medication SIG (Take, Route, Frequency, Duration) Notes Start Date End Date Status Alphagan P 1 drop into affected eye twice a day Unknown Lisinopril 20 MG 1 tablet Orally Once a day Active Advair HFA Unknown Advair Diskus 100-50 MCG/ACT INHALE ONE PUFF BY MOUTH TWICE A DAY Inhalation for 30 Active Singulair 10 MG 1 tablet Orally Once a day Active Montelukast Sodium 10 MG 1 tablet Orally Once a day for 30 day(s) Active Lumigan 0.01 % 1 drop into affected eye in the evening Ophthalmic Once a day Active SOCIAL HISTORY Tobacco Use: Social History Observation Description Date Details (start date - stop date) Never Smoker NA - NA Sex Assigned At : Social History Observation Description Sex Assigned At Unknown Tobacco Use/Smoking Question Answer Notes Are you a: nonsmoker Additional Findings: Tobacco Non-User Current no n-smoker Alcohol Screen Question Answer Notes Did you have a drink containing alcohol in the p ast year? No Points 0 Interpretation Negative Tobacco use other than smoking: Question Answer Notes Are you an other tobacco user? No PROBLEMS Problem Type ICD Code Onset Dates Problem Status W/U Status Risk SNOMED Code Notes Problem Other hammer toe(s) (acquired), right foot (M20.41) Active confirmed Acquired hammer toe of right foot (938344651952 9105) Problem Other hammer toe(s) (acquired), left foot (M20.42) Active confirmed Acquired hammer toe of left foot (197940214767 9103) Problem Unspecified atherosclerosis of [place] arteries of extremities, bilateral legs (I70.203) Active confirmed Problem Unsteady gait (R26.81) Active confirmed [id number] Problem 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) Active confirmed Problem Equinus contracture of right ankle (M24.571) Active confirmed VITAL SIGNS Blood pressure diastolic 70 mm Hg 11/15/2023 Height 5 ft 7 in in 11/15/2023 Blood pressure systolic 120 mm Hg 11/15/2023 Weight 155 lbs 11/15/2023 BMI 24.27 kg/m2 11/15/2023 Encounters Encounter Location Date Provider Diagnosis [address] [address] 06/29/2023 Concepción Solis [facility] [address] 09/06/2023 Concepción Solis Tinea unguium B35.1 ; Metatarsalgia of left foot M77.42 ; Unspecified atherosclerosis of [place] arteries of extremities, bilateral legs I70.203 ; Pain in left toe(s) M79.675 ; Pain in right toe(s) M79.674 ; Other hammer toe(s) (acquired), right foot M20.41 and Other hammer toe(s) (acquired), left foot M20.42 [facility] [address] [address] 09/06/2023 [facility] [address] 11/15/2023 Concepción Solis Tinea unguium B35.1 ; Metatarsalgia of left foot M77.42 ; Unspecified atherosclerosis of [place] arteries of extremities, bilateral legs I70.203 ; Pain in left toe(s) M79.675 ; Pain in right toe(s) M79.674 ; Other hammer toe(s) (acquired), right foot M20.41 and Other hammer toe(s) (acquired), left foot M20.42 [facility] [address] [address] 11/15/2023 [facility] [address] 01/23/2024 Concepción [facility] [address] [address] 01/25/2024 Concepción Solis ASSESSMENTS Encounter Date Diagnosis Assessment Notes Treatment Notes Treatment Clinical Notes 09/06/2023 Tinea unguium (ICD-1 0 - B35.1) 09/06/2023 Metatarsalgia of lef t foot (ICD-10 - M77.42) 11/15/2023 Tinea unguium (ICD-1 0 - B35.1) 11/15/2023 Unspecified atherosclerosis of [place] arteries of extremities, bilateral legs (ICD-10 - I70.203) 09/06/2023 Unspecified atherosclerosis of [place] arteries of extremities, bilateral legs (ICD-10 - I70.203) 11/15/2023 Metatarsalgia of lef t foot (ICD-10 - M77.42) 09/06/2023 Pain in left toe(s) (ICD-10 - M79.675) 11/15/2023 Pain in left toe(s) (ICD-10 - M79.675) 11/15/2023 Pain in right toe(s) (ICD-10 - M79.674) 09/06/2023 Pain in right toe(s) (ICD-10 - M79.674) 09/06/2023 Other hammer toe(s) (acquired), right foot (ICD-10 - M20.41) 11/15/2023 Other hammer toe(s) (acquired), right foot (ICD-10 - M20.41) 11/15/2023 Other hammer toe(s) (acquired), left foot (ICD-10 - M20.42) 09/06/2023 Other hammer toe(s) (acquired), left foot (ICD-10 - M20.42) PLAN OF TREATMENT Pending Test Test Name Order Date X ray : Foot, left 3V 11/29/2018 X ray : Foot, right 3V 11/29/2018 [id number] NAIL, 6 OR MORE 04/07/2018 [id number] NAIL, 6 OR MORE 06/30/2018 [id number] SKIN LESIONS, OVER 4 06/30/20 18 [id number] SKIN LESIONS, OVER 4 04/07/20 18 Insurance Providers Payer Name Payer Address Payer Phone Subscriber Number Group Number Insured Name Patient Relationship to Insured Coverage Start Date Coverage End Date Medicare National Govt Sv[employer] [address] [place] [address] [id number] Yumiko Pearce Self - patient is the insured [employer]) [address] [place] [address] [id number] Yumiko Pearce Self - patient is the insured MEDICAL (GENERAL) HISTORY Medical History History ICD Code Arthritis asthma Broken bones Cataracts Glaucoma High blood pressure Sciatica Back,Hip,and Knee pain Surgical History Surgery Date(Month/Year) femur 01/10/2015
--- OUTSIDE RECORDS SUMMARY | 2024-04-13 01:56 | XMS_ITS ---
Author Organization [facility] Address [address] [place] [address] Care Team Providers Care Top Inventory Control Executive Name Role Phone Boubacar Delarosa MD Primary Care Provider Unavaila Concepción Maldonado Unavailable [phone] REASON FOR VISIT buy 10 pks Oval Met Pads Encounters Encounter Location Date Provider Diagnosis [facility] [address] [place] [address] 11/15/2023 Concepción Solis PLAN OF TREATMENT No Information
[2024-04-13] MEDS: Doxycycline Hyclate 100 MG in 0.9 % Sodium Chloride 250 ML 166.67 MG IV ×3 (02:30→22:05)
[2024-04-13 03:13] LABS: Hematocrit 38.9 % (37.0-47.0); Hemoglobin 13.2 g/dl (12.0-16.0); Mean Corpuscular HGB Conc 33.9 g/dl (31.0-35.0); Mean Corpuscular Hemoglobin 31.4 pg (27.0-33.0); Mean Corpuscular Volume 92.4 fL (80.0-98.0); Mean Platelet Volume 9.5 fL (9.4-12.3); Platelet Count 257 X10*3/uL (160-400); Red Blood Count 4.21 X10*6/uL (4.20-5.50); Red Cell Distribution Width 12.5 % (11.0-16.0)
[2024-04-13 03:25] LABS: Anion Gap 13 (12-20); Blood Urea Nitrogen 11 mg/dL (9-16); Calcium 9.3 mg/dL (8.4-10.2); Carbon Dioxide 24 mmol/L (22-29); Chloride 111 mmol/L (96-108); Creatinine Clr Calc Pharmacy 45.1; Estimated Glomerular Filt Rate > 60; Glucose Random 88 mg/dL (60-115); Potassium 3.8 mmol/L (3.3-5.1); Sodium 144 mmol/L (135-145)
[2024-04-13 03:40] LABS: PTT Heparin Drip > 200.0 SEC (53-77.9)
--- NOTE | 2024-04-13 03:41 | PC.NURSE ---
ptthd came back and unsure if it was drawn from the line the heparin drip was infusing by value came back greater than 200. reordered ptthd at this time to compair with prev lab value. made aware.
[2024-04-13 04:45] LABS: Prothrombin Time 12.5 SEC (11.1-13.3)
[2024-04-13] MEDS: Lactated Ringers 1,000 ML 75 ML IVCONT (05:01)
[2024-04-13 05:03] LABS: PTT Heparin Drip 139.5 SEC (53-77.9)
[2024-04-13 07:51] LABS: PTT Heparin Drip 40.7 SEC (53-77.9)
--- NOTE | 2024-04-13 08:50 | PHA.MEDREC ---
Addendum entered by Suzanna Berg RPh 04/13/24 09:40: Reviewed by this [facility] Original Note: Pharmacy Consult ? Medication Reconciliation Pharmacy has completed the medication reconciliation. Confirmed medications with patient. Patient confirmed she is getting Lisinopril 20mg tab once daily filled and Montelukast 10mg tab once daily delivered to her from [facility]. Patient states she got Fluticasone 100mcg-salmeterol 50mcg(Advair) inhaler filled at [facility]. Patient states she took her medication last 2 days ago.
--- NOTE | 2024-04-13 08:58 | PM.CNGS ---
History of Present Illness Consult details Consult date: 04/13/24 Reason for consult: other (DVT) Narrative: Pleasant 84-year-old female presents with history 3 weeks of her left leg changing. She noticed increased swelling and itching. It was initially treated with antibiotics and there was concern of cellulitis. Upon workup in the emergency room it was recognized that she had a left lower extremity DVT. She now presented to us for vascular evaluation. Upon discussion with her she has no prior history or family history of DVT. She has had no prior venous treatments. She denies any inciting events that brought this on. She has never been on any anticoagulants. Review of Systems Review of Systems: Yes all other systems are reviewed and are negative Constitutional: Constitutional: Reports no additional constitutional complaints ENT: Reports Normal hearing present Cardiovascular: Cardiovascular: Denies chest pain, Denies chest pain at rest, Denies chest pain with activity and Denies pedal edema Respiratory: Respiratory: Denies cough Gastrointestinal: Gastrointestinal: Denies abdominal pain Musculoskeletal: Musculoskeletal: Denies abnormal gait, Denies muscle cramps and Denies radiating pain into limb Integumentary/Breasts: Skin/Breast: Denies skin ulcer and Denies wounds Neurologic: Reports Normal hearing present and Denies abnormal gait Psychiatric: Psychiatric: Reports no additional psychiatric complaints PMFSH Past Medical History Medical History Hypertension COPD (chronic obstructive pulmonary disease) Allergic rhinitis Family History Family History Mother No problems noted. Father No problems noted. Surgical History Surgical History No history of previous surgery Social History Social History Housing: House Alcohol intake: never Patient Tobacco Use Status: Never used Tobacco Smoked in Last 30 Days: No e-Cigarette/Vaping Use: Never Used Second Hand Smoke Exposure: No Use of substances other than those prescribed or required for medical reasons: No Advance Directives: No Advance Directives Information Provided: No Do you have a plan to hurt others: No Plan Nutrition Risks: No Nutritional Risk service: No Current occupational status: retired Cognitive needs: No Hearing needs: No Vision needs: No Meds Allergies Allergy/AdvReac Type Severity Reaction Status Date / Time Penicillins [PENICILLINS] Allergy Intermediate RASH Verified 04/12/24 15:11 halothane [HALOTHANE] AdvReac Intermediate ELEVATED Verified 04/12/24 15:11 LIVER ENZYMES Active Medications: Current Medications Acetaminophen (Acetaminophen 325 Mg Tablet) 650 mg PO Q6H PRN PRN Reason: Pain, Mild (Pain Scale 1-3), fever or headache Al Hydroxide/Mg Hydroxide (Magnesium Hydrox/Alum Hydrox 30 Ml Oral.Susp) 30 ml PO Q4H PRN PRN Reason: Heartburn Calcium Carbonate (Calcium Carbonate 750 Mg Tab.Chew) 750 mg PO Q4H PRN PRN Reason: Heartburn Heparin Sodium (Porcine) (Heparin Sodium,Porcine 5,000 Unit/Ml Vial) 2,700 unit 40 unit/kg (2700 unit) IVPUSH PROTOCOL BOLUS PRN; Protocol PRN Reason: 40 unit/kg - Heparin Protocol Heparin Sodium (Porcine) (Heparin Sodium,Porcine 5,000 Unit/Ml Vial) 5,500 unit 80 unit/kg (5500 unit) IVPUSH PROTOCOL BOLUS PRN; Protocol PRN Reason: 80 unit/kg - Heparin Protocol Heparin Sodium/Sodium Chloride (Heparin Sodium,Porcine/1/2ns) 25,000 unit in 250 mls @ 0 mls/hr IVCONT .Q0M JHONNY; Protocol Last Titration: 04/13/24 08:15 Dose: 10 units/kg/hr, 6.87 mls/hr Doxycycline Hyclate 100 mg/ (Sodium Chloride) 250 mls @ 166.67 mls/hr IV 1000,2200 [facility] Last Infusion: 04/13/24 04:56 Dose: Infused Lactated Ringer's (Lr) 1,000 mls @ 75 mls/hr IVCONT .[id number] [facility] Stop: 04/13/24 15:19 Last Admin: 04/13/24 05:01 Dose: 75 mls/hr Magnesium Hydroxide (Milk Of Magnesia 30 Ml Oral.Susp) 30 ml PO DAILY PRN PRN Reason: Constipation Melatonin (Melatonin 3 Mg Tablet) 6 mg PO BEDTIME PRN PRN Reason: Insomnia Ondansetron HCl (Ondansetron Hcl 4 Mg/2 Ml Vial) 4 mg IVPUSH Q8H PRN PRN Reason: Nausea and Vomiting Polyethylene Glycol (Polyethylene Glycol 3350 17 Gm Powd.Pack) 17 gm PO DAILY PRN PRN Reason: Constipation Sodium Chloride (0.9 % Sodium Chloride Flush 3 Ml Syringe) 3 ml IVFLUSH QSHIFT [facility] Last Admin: 04/13/24 07:34 Dose: Not Given Physical Exam Vital Signs: Vital Signs: Last Vital Signs Temp 97.9 F 04/13/24 07:29 Pulse 66 04/13/24 07:29 Resp 18 04/13/24 07:29 BP 132/54 L 04/13/24 07:29 Pulse Ox 95 04/13/24 07:29 O2 Del Method Room Air 04/13/24 07:29 BMI result Body Mass Index 24.4 Const: General: cooperative, healthy appearing and comfortable Orientation/consciousness: oriented to person, oriented to place and oriented to time HEENT: Head: Yes normal to inspection Neck: Neck: Yes normal visual inspection Carotids: no bruits Chest: Chest palpation & inspection: normal inspection of the chest Resp: Effort & Inspection: normal respiratory effort and able to speak in complete sentences Auscultation: clear to auscultation bilaterally, no crackles, no rales, no rhonchi and no wheezes Cardio: Rate: regular rate Rhythm: regular rhythm Heart sounds: S1 normal heart sound present and S2 normal heart sound present Bruits: no carotid bruits Peripheral pulses: Peripheral pulses 2+ throughout GI: Inspection: Yes normal to inspection Skin: Wounds: no wounds Hair: normal Neuro: General: oriented to person, oriented to place and oriented to time Cranial nerves: Yes CN's II-XII intact bilaterally and Yes Normal hearing present Cognition (Neuro): normal cognition Motor exam (neuro): 5/5 motor strength present throughout Extrem: Other: venous exam: Left leg +2 edema General: No clubbing, No cyanosis and Yes edema Psych: Appearance: grossly normal Mental Status: mental status grossly normal Speech and movement: Normal speech and movement present Results Labs 04/13/24 03:06 04/13/24 03:06 Labs: Abnormal lab results 04/12/24 04/12/24 04/13/24 Range/Units 15:49 21:09 03:06 Immature Gran % (Auto) 0.7 H (0.0-0.4) % Neut % (Auto) 75.5 H (45-73) % Lymph % (Auto) 12.8 L (20-40) % Lymph # (Auto) 1.0 L (1.2-4.9) X10*3/uL Abs Immat Gran (auto) 0.06 H (0.00-0.03) X10*3/uL aPTT Heparin Protocol 34.5 L > 200.0 H* D (53-77.9) SEC Chloride 111 H (96-108) mmol/L 04/13/24 04/13/24 Range/Units 04:19 07:25 Immature Gran % (Auto) (0.0-0.4) % Neut % (Auto) (45-73) % Lymph % (Auto) (20-40) % Lymph # (Auto) (1.2-4.9) X10*3/uL Abs Immat Gran (auto) (0.00-0.03) X10*3/uL aPTT Heparin Protocol 139.5 H* D 40.7 L D (53-77.9) SEC Chloride (96-108) mmol/L Short CBC 04/12/24 04/13/24 Range/Units 15:49 03:06 WBC 8.0 7.0 (4.8-10.8) X10*3/uL Hgb 14.2 13.2 (12.0-16.0) g/dl Hct 42.4 38.9 (37.0-47.0) % Plt Count 322 257 (160-400) X10*3/uL BMP 04/12/24 04/13/24 15:49 03:06 Sodium 143 144 Potassium 4.5 3.8 Chloride 108 111 H Carbon Dioxide 26 24 BUN 13 11 Creatinine 1.05 0.87 Calcium 10.0 9.3 D Liver Function 04/12/24 Range/Units 15:49 Total Bilirubin 0.5 (0.0-1.0) mg/dL AST 17 (5-31) U/L ALT 12 (0-31) U/L Alkaline Phosphatase 79 (39-117) U/L Albumin 4.3 (3.5-5.0) g/dL All other labs normal. Imaging Additional studies: Ultrasound demonstrated DVT from left common femoral vein to popliteal vein occlusive at mid femoral vein Assessment and Plan (1) Acute deep vein thrombosis of left lower extremity: Qualifiers: Affected thrombotic vein of extremity: femoral Qualified Code(s): I82.412 - Acute embolism and thrombosis of left femoral vein Status: Acute Plan In short patient has left lower extremity DVT. This has been causing her symptoms and discomfort and significant swelling that has brought her to the emergency room. She will require left lower extremity mechanical venous thrombectomy. Risks benefits complications of the procedure were discussed in detail with the patient. She understood and consented. We will try to move forward this afternoon as soon as possible. Procedures Date of Service Date of Service: 04/13/24
--- NOTE | 2024-04-13 12:43 | PM.EVENT ---
Event Note Date of Service: 04/13/24 Event Note: Seen and examined this morning Follow-up for left lower extremity DVT with superimposed cellulitis Pain control Patient NPO with plan for left lower extremity thrombectomy today Denies shortness of breath, chest pain, dizziness at this time Extensive Left lower extremity DVT Plan for thrombectomy today Continue heparin drip, likely transition to oral Eliquis in a.m. Lower extremity cellulitis Continue IV doxycycline No evidence of sepsis COPD No acute exacerbation Continue baseline inhalers Time Spent With Patient Time: Total time managing care of this patient today ____ minutes.
--- NOTE | 2024-04-13 15:13 | P.OP_ITS ---
Operative Note Operative Note Date of Service: 04/13/24 Narrative: Operative note by [facility] Preoperative diagnosis: Deep venous thrombosis of Left lower extremity Postoperative diagnosis: Same Procedure: 1 Ultrasound-guided left popliteal vein access 2. Inferior vena cavogram 3. Percutaneous transluminal venous mechanical thrombectomy ([id number]) 4. Radiologic super visual and interpretation Surgeon:Param Manzo M.D. Shift Supervisor Film Processing: None Anesthesia: Local with moderate conscious sedation. Total intra service moderate sedation time was 75 minutes. I monitored the patient's level of consciousness and physiologic status continuously throughout the procedure Specimen: None Drains: None Estimated blood loss: 50 mL Implant: non Comorbid conditions: frail 84-year-old, COPD, hypertension Indications: 84-year-old female with history DVT which was picked up on ultrasound upon admission to the emergency room. Due to its location she now presents for mechanical venous thrombectomy. The plan of care is mechanical thrombectomy of the lower extremity veins. The patient has signed the informed consent after reviewing risks, complications, benefits, and alternatives previously discussed with the patient. The patient was given the opportunity to ask any additional questions or voice any concerns. All questions were answered to the patient's satisfaction. Procedure in detail: Patient was brought to the Angiography suite prior to which a time-out was called for patient identification and site verification. The patient was placed in a prone position. Bilateral popliteal fossas were prepped out. We first access the [] popliteal vein under ultrasound guidance. We then placed a percutaneous 5 [place] sheath. We were then able to traverse the clot with a Glidewire Advantage 035 wire. We brought in a trail Blazer catheter to confirmed true lumen. At this time [] units of heparin was administered. After 5 minutes of circulation time we then dilated up the tract. The Clot Triever over the wire system was then brought into position. We placed the clot triever sheath and exposed the self expanding Nitinol mesh funnel to facilitate clot removal for large-bore side port rapid aspiration. Once this was accomplished we then advanced over the wire the clot triever catheter with the coring element and braided collection bag. This was brought into the inferior vena cava up past this occlusion and extracted back. We did 4 sequential passes. The main angle of the catheter was placed at the 12:00 o'clock, 03:00 o'clock, 06:00 o'clock, and 09:00 o'clock positions. After each pass had been completed, large amount of clot was removed. After each subsequent pass the clot was removed and it was flushed clear and we then brought it in again through this area. Completion venogram demonstrated an excellent result. We subsequently removed catheter wire in sheath. Direct pressure was held for 10 minutes. Sterile dressing was applied. Patient was brought to the recovery room with stable vitals. Interpretation of films: 1. Ultrasound was used to evaluate access site. Popliteal vein did note to have thrombus. Ultrasound was used to visualize needle entry. Image of ultrasound was saved on PACS 2. Vena cavogram demonstrated thrombus in the distal vena cava along the end attire iliofemoral system down into the popliteal vein. 3. Completion vena cavogram demonstrated resolution of clot. Conclusion: 1. Successful mechanical clot removal. 2. Anticoagulation status: Resume heparin drip now. Tomorrow may start oral anticoagulation. This note is constructed using voice recognition software. While every effort has been made to ensure accuracy, language therapist errors may have been included. Thank you for allowing me to participate in the care of your patient. Yours sincerely, Param Manzo MD, FACS, R.P.V.I.
[2024-04-13] MEDS: Heparin Sodium,Porcine/1/2NS 25,000 UNIT/250 ML IV.SOLN 6.87 UNIT IVCONT ×2 (17:14→20:56)
--- NOTE | 2024-04-13 17:57 | PC.NURSE ---
Pt arrived to unit at [address] Manzo note, resume Hep gtt now , note was entered at 15:13. Upon arrival to unit hep gtt noted to not be infusing, volume of heparin bag to be estimated at 150ml. MD asked for order clarification via tiger text, per MD gtt to be running at previous rate of 10units/kg/hr and to order PTT redraw 6 hours from restart of gtt. Heparin gtt restarted at 17:15, PTT redraw entered for 23:15. ALONZO Johnson aware.
--- NOTE | 2024-04-13 18:15 | HO.SKINPHOTO ---
Coccyx red blanchable, foam applied. Prolapse uterus, stage II pressure. Left leg scabbed areas. health club manager consulted. Pt being turned and repositioned in bed every two hours and PRN. Foam applied to buttocks, airloss mattress ordered.
--- NOTE | 2024-04-13 18:19 | PC.NURSE ---
Phlebotomy at bedside to draw PT at approximately 1630, this RN informed phlebotomy PTT was rescheduled for 5. RN informed Phelb other labs may be drawn at this time but PTT was rescheduled due hep gtt start time.
[2024-04-13] MEDS: 0.9 % Sodium Chloride Flush 3 ML SYRINGE IVFLUSH (22:10)
[2024-04-14 00:04] LABS: PTT Heparin Drip 84.7 SEC (53-77.9)
[2024-04-14 07:51] VITALS: BP 120/57; PULSE 59; RESP 16; TEMP 36.3; O2SAT 96
[2024-04-14] MEDS: Montelukast Sodium 10 MG TABLET PO (08:03)
--- NOTE | 2024-04-14 08:07 | P.PNIM_ITS ---
Subjective Subjective Date of Service: 04/14/24 Interval History: f/u on dvt of left leg s/p thrombectomy, doing well was confused overnight but now lucid Physical Exam 2 Vital Signs: Vital Signs: Last Vital Signs Temp 97.4 F 04/14/24 07:51 Pulse 59 04/14/24 07:51 Resp 16 04/14/24 07:51 BP 120/57 L 04/14/24 07:51 Pulse Ox 96 04/14/24 07:51 O2 Del Method Room Air 04/14/24 07:51 BMI result Body Mass Index 24.4 Const: Other: General: AO X 3, no acute distress Resp: CTA bilateral CVS: S1,S2,RRR GI: +BS, NT, no distention Skin: No rash MSK: mild swelling of left leg and redness is much reduced Neuro: motor grossly intact Psych: appropriate affect Objective Data Active Medications Acetaminophen (Acetaminophen 325 Mg Tablet) 650 mg PO Q6H PRN PRN Reason: Pain, Mild (Pain Scale 1-3), fever or headache Al Hydroxide/Mg Hydroxide (Magnesium Hydrox/Alum Hydrox 30 Ml Oral.Susp) 30 ml PO Q4H PRN PRN Reason: Heartburn Calcium Carbonate (Calcium Carbonate 750 Mg Tab.Chew) 750 mg PO Q4H PRN PRN Reason: Heartburn Fluticasone/Vilanterol (Fluticasone/Vilanterol 100/25 Blst.W.Dev) 1 puff INHALE RDAILY [facility] Last Admin: 04/13/24 10:11 Dose: Not Given Documented By: OCHOA Non-Admin Reason: pharmacy aware Heparin Sodium (Porcine) (Heparin Sodium,Porcine 5,000 Unit/Ml Vial) 2,700 unit 40 unit/kg (2700 unit) IVPUSH PROTOCOL BOLUS PRN; Protocol PRN Reason: 40 unit/kg - Heparin Protocol Heparin Sodium (Porcine) (Heparin Sodium,Porcine 5,000 Unit/Ml Vial) 5,500 unit 80 unit/kg (5500 unit) IVPUSH PROTOCOL BOLUS PRN; Protocol PRN Reason: 80 unit/kg - Heparin Protocol Heparin Sodium/Sodium Chloride (Heparin Sodium,Porcine/1/2ns) 25,000 unit in 250 mls @ 0 mls/hr IVCONT .Q0M [facility]; Protocol Last Titration: 04/14/24 00:09 Dose: 8 units/kg/hr, 5.5 mls/hr Documented By: NATHAN Co-signed By: JC Doxycycline Hyclate 100 mg/ (Sodium Chloride) 250 mls @ 166.67 mls/hr IV 1000,2200 [facility] Last Infusion: 04/13/24 23:49 Dose: Infused Documented By: NATHAN Magnesium Hydroxide (Milk Of Magnesia 30 Ml Oral.Susp) 30 ml PO DAILY PRN PRN Reason: Constipation Melatonin (Melatonin 3 Mg Tablet) 6 mg PO BEDTIME PRN PRN Reason: Insomnia Montelukast Sodium (Montelukast Sodium 10 Mg Tablet) 10 mg PO DAILY [facility] Last Admin: 04/14/24 08:03 Dose: 10 mg Documented By: ALEX Ondansetron HCl (Ondansetron Hcl 4 Mg/2 Ml Vial) 4 mg IVPUSH Q8H PRN PRN Reason: Nausea and Vomiting Polyethylene Glycol (Polyethylene Glycol 3350 17 Gm Powd.Pack) 17 gm PO DAILY PRN PRN Reason: Constipation Sodium Chloride (0.9 % Sodium Chloride Flush 3 Ml Syringe) 3 ml IVFLUSH QSHIFT [facility] Last Admin: 04/14/24 08:04 Dose: Not Given Documented By: ALEX Non-Admin Reason: IV Running Labs 04/13/24 03:06 04/13/24 03:06 Labs: Laboratory Results - last 24 hr 04/13/24 23:48 aPTT Heparin Protocol 84.7 H D Assessment and Plan (1) Acute deep vein thrombosis of left lower extremity: Status: Acute (2) Cellulitis of left leg: Status: Acute Plan 84/F with unprovoked Left leg DVT, and superimposed cellulitis of the limb Extensive DVT of the left lower extremity, no PE on CT -s/p thrombectomy 04/13 -Transition to eliquis Cellulitis of the left leg, improved -IV doxycyline-->PO mild confusion overnight d/t sundowning, or anesthetic, resolved. HTN-BP - resume Lisinopril at 10 mg h/o COPD/asthma--no exacerbation -continue home inhalers DVT p: heparin Full code need for inpatient: IV heparin for extensive acute dvt and need for intervention Quality Stroke Does the patient have a stroke diagnosis?: No VTE Prior VTE?: No VTE Risk Level:: Medical - moderate - high VTE Device Contraindication: Treatment Not Indicated VTE Drug Contraindication: N/A - Med Ordered
--- NOTE | 2024-04-14 08:25 | PC.NURSE ---
d/c heparin drip per
[2024-04-14 08:41] LABS: Hematocrit 36.4 % (37.0-47.0); Hemoglobin 12.2 g/dl (12.0-16.0); Mean Corpuscular HGB Conc 33.5 g/dl (31.0-35.0); Mean Corpuscular Hemoglobin 31.8 pg (27.0-33.0); Mean Corpuscular Volume 94.8 fL (80.0-98.0); Mean Platelet Volume 10.7 fL (9.4-12.3); Platelet Count 227 X10*3/uL (160-400); Red Blood Count 3.84 X10*6/uL (4.20-5.50); Red Cell Distribution Width 12.4 % (11.0-16.0); White Blood Count 7.3 X10*3/uL (4.8-10.8)
[2024-04-14 08:54] LABS: PTT Heparin Drip 45.6 SEC (53-77.9)
[2024-04-14 09:01] LABS: Anion Gap 12 (12-20); Blood Urea Nitrogen 13 mg/dL (9-16); Calcium 8.7 mg/dL (8.4-10.2); Carbon Dioxide 20 mmol/L (22-29); Chloride 111 mmol/L (96-108); Creatinine Clr Calc Pharmacy 46.7; Estimated Glomerular Filt Rate > 60; Glucose Random 105 mg/dL (60-115); Potassium 3.4 mmol/L (3.3-5.1); Sodium 140 mmol/L (135-145)
[2024-04-14] MEDS: Apixaban 5 MG TABLET 10 MG PO (09:05)
[2024-04-14] MEDS: lisinopriL 10 MG TABLET PO (09:05)
[2024-04-14] MEDS: Doxycycline Hyclate 100 MG in 0.9 % Sodium Chloride 250 ML 166.67 MG IV (09:18)
[2024-04-14 11:21] VITALS: PULSE 64; RESP 16; O2SAT 92
[2024-04-14] MEDS: Fluticasone/Vilanterol 100/25 BLST.W.DEV 1 PUFF INHALE (11:21)
--- NOTE | 2024-04-14 14:28 | P.DS_ITS ---
DS: Providers Provider Date of Service: 04/14/24 Date of admission: 04/13/24 01:48 Date of discharge: 04/14/24 Primary care physician: Boubacar Delarosa MD Consults: 04/13/24 01:25 Consult to Vascular Surgery Routine Consulting Provider[place] [facility] Reason for consultation: Left extensive DVT Has provider been notified: Yes 04/13/24 18:40 Consult to Wound Care Routine Reason for consultation: prolapse pressure ulcer, left leg cellulitis, redness of coccyx left arm Has provider been notified: Yes DS: Diagnosis Discharge Diagnosis (1) Acute deep vein thrombosis of left lower extremity: Status: Acute (2) Cellulitis of left leg: Status: Acute DS: Summary Hospital Course Hospital Course: admission hpi Chief Complaint: left leg swelling and redness An 84-year-old female with COPD and hypertension who presented to her PCP's office with 3 weeks of noticing her leg changing. She reported increased swelling in the left leg, along with recent itching and redness, but no pain. Upon evaluation at the PCP office, there was concern for cellulitis, and she was sent to the ED for possible IV antibiotics. A DVT study of the left leg showed Deep venous thrombosis is noted in the left common femoral vein through the level of the popliteal vein, which appears occlusive at the level of the mid femoral vein. There is loss of phasicity on spectral Doppler in the left common femoral vein, suggesting the deep venous thrombus may extend centrally into the pelvis. IV heparin was initiated, and vascular surgery was notified. Dr. Manzo is planning declotting in the morning. She has no recent long trips, no personal history of VTEs, and is not sedentary. A CT of the chest show no PE hospital course: Patient presented with leg swelling and redness and was found to have extensive left lower extremity cellulitis. She was started on IV heparin, and the next day, she underwent a thrombectomy and clot removal by Dr. Manzo. She has now been transitioned to oral Eliquis, 10 mg twice daily (BID) for 7 days, followed by 5 mg twice daily for the remainder of her treatment. She should follow up with hematology on an outpatient basis since her deep vein thrombosis (DVT) was unprovoked. For cellulitis, she has been treated with IV Doxycycline for a total of 7 days and will be transitioned to oral Doxycycline at discharge. Physical therapy evaluated the patient and recommends outpatient services. She will therefore go home with [facility] services. Plan discussed with son who lives with her over the phone. Time Attestation Discharge Coordination Time (in mins): 45 Quality: Safe Use of Opioids Does Pt have an Active Cancer Diagnosis on the Problem List?: No Quality: Stroke Does the patient have a stroke diagnosis?: No Physical Exam Vital Signs: Vital Signs: Last Vital Signs Temp 97.4 F 04/14/24 07:51 Pulse 64 04/14/24 11:21 Resp 16 04/14/24 11:21 BP 120/57 L 04/14/24 07:51 Pulse Ox 96 04/14/24 07:51 O2 Del Method Room Air 04/14/24 07:51 BMI result Body Mass Index 24.4 Const: Other: General: AO X 3, no acute distress Resp: CTA bilateral CVS: S1,S2,RRR GI: +BS, NT, no distention Skin: No rash MSK: mild swelling of left leg and redness is much reduced Neuro: motor grossly intact Psych: appropriate affect DS: Data Data Completed and Pending Labs on day of discharge: Laboratory Results - last 24 hr 04/13/24 04/14/24 23:48 07:30 WBC 7.3 RBC 3.84 L Hgb 12.2 Hct 36.4 L MCV 94.8 MCH 31.8 MCHC 33.5 RDW 12.4 Plt Count 227 MPV 10.7 Absolute Nucleated RBC 0.000 Nucleated RBC % (auto) 0.0 aPTT Heparin Protocol 84.7 H D 45.6 L D Sodium 140 Potassium 3.4 Chloride 111 H Carbon Dioxide 20 L Anion Gap 12 BUN 13 Creatinine 0.84 Estim Creat Clear Calc 46.7 Estimated GFR > 60 Random Glucose 105 Calcium 8.7 D Discharge Plan Discharge Anticipated Discharge Date/Time: 04/14/24 14:18 Patient Disposition: Home Health Service Discharge Diagnosis: Left leg DVT, leg leg cellulitis Referrals: Riya Baez [Outside] - 1 Week Miriam Resendez MD [Physician] - 2 Weeks (DVT, unknown cause) Boubacar Delarosa MD [Primary Care Provider] - 1 Week Discharge Medications: New Eliquis DVT-PE Treat 30D Start 5 mg (74 tabs) tablets,dose pack See Rx Instructions .ROUTE .COMPLEX Qty: 110 0RF Rx Instructions: take 2 tabs twice daily for 7 days (13 more doses), then after that take 1 tab once daily Continued montelukast 10 mg tablet 10 mg PO DAILY Qty: 90 8RF lisinopril 20 mg tablet 20 mg PO DAILY Qty: 90 8RF fluticasone propion-salmeterol 100-50 mcg/dose blister with device 1 ea PO BID 90 Days Qty: 60 3RF Discharge Orders: Discharge Order (Routine); Ordered 04/14/24 Ordered By: Trent Knowles Diet: Advance to usual diet Activity on Discharge: As tolerated Stand Alone Forms: Patient Portal Discharge page Print Language: Puerto Rican Care Plan Goals: recovery from DVT and cellulitis of the leg Health Concerns: Deep vein thrombosis (DVT) Cellulitis of the left leg Plan of Treatment: Take Eliquis as directed, take 2 tabs twice daily for 7 days (13 more doses), next one this evening, after 7 days, take 1 tab once daily Take Doxycycline for cellulitis, Follow up with your Doctor in a week. Follow up with hematology clinic on outpatient basis Assessment: see above Patient Instructions: Doxycycline (By mouth), Apixaban (By mouth), Cellulitis (GEN), Deep Vein Thrombosis (GEN) Discharge Date/Time: 04/14/24 15:18
--- NOTE | 2024-04-14 14:43 | W.MHC.F2F ---
Service Date Service Date: 04/14/24 Encounter Date of encounter: 04/14/24 Reasons for Services Signs and symptoms assessed: left leg dvt and cellulitis Reason for custodial: teach disease management Homebound: Leaving the home is medically contraindicated at this time without the asist of a device and/or another person due th the listed conditions above and below. Reason homebound: leg weakness Homebound supporting statement: swelling in the left leg due to dvt and cellulitis of the left leg making it difficult to ambulate Certification: Based on the above findings, I certify that this patient is confined to the home and needs intermittent custodial care, physical therapy and/or speech therapy, or continues to need occupational therapy. The patient is under my care, and I have initiated the establishment of the plan of care. The patient will be followed by a physician who will periodically review the plan of care. Time Spent With Patient Time: Total time managing care of this patient today ____ minutes.
--- NOTE | 2024-04-14 16:07 | MHC.CM.PN ---
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
[2024-04-16 06:48] LABS: ACT 164 Celite s (79-173)
== END 2024-04-14 15:18 | disposition home health service (06) | DRG 271 ==
LOC: HO.ED 20:37 → HO.EDOVER 04-13 01:54 → HO.S3 04-13 10:36
PROVIDERS: Physician Assistant; Physician Assistant Medical; Surgery Vascular Surgery; Admitting Provider Internal Medicine; Emergency Provider Internal Medicine; PCP Internal Medicine; Visit Provider Internal Medicine
PROC: 04CL3ZZ Extirpation of Matter from Left Femoral Artery, Percutaneous Approach (ICD-10-PCS; principal; 2024-04-13 13:00)
DX: I82.412 Acute embolism and thrombosis of left femoral vein (principal); L03.116 Cellulitis of left lower limb; I10 Essential (primary) hypertension; I82.432 Acute embolism and thrombosis of left popliteal vein; J44.9 Chronic obstructive pulmonary disease, unspecified; Z79.51 Long term (current) use of inhaled steroids; Z79.899 Other long term (current) drug therapy
CPT/HCPCS: 36415; 37187; 71275; 73590; 76937; 80048; 80053; 85025; 85027; 85347; 85610; 85652; 85730; 86140; 93971; 97161; 99152; 99153; 99285; C1725; C1757; C1769; C1887; C1894; J1644; J7120; Q9967

== ENCOUNTER → 2024-04-13 01:48 | Outpatient (BNV) | payer MEDICARE, OTHER, SELFPAY | PROVIDERS: Admitting Provider Internal Medicine; Emergency Provider Internal Medicine; PCP Internal Medicine; Visit Provider Physician Assistant Medical | DX: I82.412 Acute embolism and thrombosis of left femoral vein (principal); L03.116 Cellulitis of left lower limb | CPT/HCPCS: 99223; 99239; 99499; G0180 ==

== ENCOUNTER → 2024-04-13 01:48 | Outpatient (BNV) | payer MEDICARE, OTHER, SELFPAY | PROVIDERS: Admitting Provider Internal Medicine; Emergency Provider Internal Medicine; PCP Internal Medicine; Visit Provider Surgery Vascular Surgery | DX: I82.432 Acute embolism and thrombosis of left popliteal vein (principal); I82.412 Acute embolism and thrombosis of left femoral vein; I82.422 Acute embolism and thrombosis of left iliac vein | CPT/HCPCS: 36012; 37187; 75825; 76937; 99152; 99222 ==

== ENCOUNTER 2024-04-24 13:03 | Outpatient (AMB) | payer MEDICARE, OTHER, SELFPAY ==
--- NOTE | 2024-04-24 13:04 | A.OFFPC_ITS ---
Vital Signs 04/24/24 13:07 Height 5 ft 6 in Weight 145 lb 4 oz BMI 23.4 BP 120/60 Blood Pressure Location Lt brachial Position Sitting Pulse 68 Pulse Source Pulse Oximeter Pulse Oximetry (%) 99 Oxygen Delivery Method Room Air Intake Visit Reasons: TCM LEFT LEG CELLULITIS Intake Note: Patient is here for hospital discharge follow up and TCM. Patient was discharged from [facility] on [place]/24. Learning And Development Officer Required: No Silk Finisher: Not Required per policy Accompanied by: Self / Same As Patient Allergies Penicillins [PENICILLINS] Allergy (Intermediate, Verified 04/24/24 13:07) RASH halothane [HALOTHANE] Adverse Reaction (Intermediate, Verified 04/24/24 13:07) ELEVATED LIVER ENZYMES Tobacco use date assessed: 04/24/24 Fall risk assessment: No Falls in past year Last assessed Fall Risk: 04/24/24 Dental Screening Dental Screen Date: 04/24/24 Did you have a dental visit in the last 12 months?: No Did you have a dental problem in the last 6 months where you did not have access to dental care?: No Was dental information given to patient?: Patient has dentist HPI TCM TCM Information Date of Discharge 04/14/24 Discharged From [facility] Interactive Contact Date (Reference documentation from this date) 04/16/24 HPI Comments History of Present Illness Details 84 y/o female patient who presents to [facility] today for TCM. She was admitted at [facility] on 04/13/24 for Cellulitis and DVT left lower leg. She underwent Left leg Thrombectomy for DVT and was put on Eliquis 5 mg BID. She was discharged home on 04/14/24 on stable condition. She is going to follow up with Vascular Surgery next week or this week, she is not sure. She completed Doxy course for Cellulitis, not much better, infection resolved. [facility] Medical History Hypertension COPD (chronic obstructive pulmonary disease) Allergic rhinitis Surgical History No history of previous surgery Family History Mother No problems noted. Father No problems noted. Social History (Reviewed 04/24/24 @ 13:05 by VIKAS Tejada Household Members: Children Housing: House Do you presently have visiting nurse or other home services: No Alcohol intake: never Patient Tobacco Use Status: Never used Tobacco e-Cigarette/Vaping Use: Never Used Second Hand Smoke Exposure: No service: No Current occupational status: retired Cognitive needs: Yes (Walker, cane) Hearing needs: No Vision needs: Yes (reading glasses) Questionnaire PHQ-9 Over the last 2 weeks, how often have you been bothered by any of the following problems? 1. Little interest or pleasure in doing things: not at all 2. Feeling down, depressed, or hopeless: not at all 3. Trouble falling or staying asleep, or sleeping too much: not at all 4. Feeling tired or having little energy: not at all 5. Poor appetite or overeating: not at all 6. Feeling bad about yourself - or that you are a failure or have let yourself or your family down: not at all 7. Trouble concentrating on things, such as reading the newspaper or watching television: not at all 8. Moving or speaking so slowly that other people could have noticed. Or the opposite - being so fidgety or restless that you have been moving around a lot more than usual: not at all 9. Thoughts that you would be better off or of hurting yourself in some way: not at all Total score: 0 Depression Screening Interpretation: Negative Depression Screening Done: Yes Source: Developed by Drs. Boston Morris, Kayla Levi, Jonah Matthews and colleagues, with an educational camacho from [employer]. Thrive Questionnaire Date Thrive assessed: 04/14/24 Are you currently unemployed and looking for a job?: No AUDIT C Alcohol Use Questionnaire (AUDIT-C) 1. How often do you have a drink containing alcohol?: Never Total Score: 0 SALVADOR-7 AMB Questionnaire SALVADOR-7 Date SALVADOR - 7 assessed: 04/24/24 Feeling nervous, anxious, or on edge: 0 = Not at all Not being able to stop or control worryin = Not at all Worrying too much about different things: 0 = Not at all Trouble relaxin = Not at all Being so restless that it is hard to sit still: 0 = Not at all Becoming easily annoyed or irritable: 0 = Not at all Feeling afraid as if something awful might happen: 0 = Not at all Total SALVADOR-7 score (0-4 normal; 5-9 mild; 10-14 moderate; 15-21 severe): 0 Source: Developed by Drs. Boston Morris, Kayla Levi, Jonah Matthews and colleagues, with an educational camacho from [employer]. Physical exam (Primary Care) Vital Signs: Last Vital Signs Pulse 68 04/24/24 13:07 BP 120/60 04/24/24 13:07 Pulse Ox 99 04/24/24 13:07 Oxygen Delivery Method Room Air 04/24/24 13:07 BMI result Body Mass Index 23.4 Tobacco/Smoking Status: Tobacco use Status Tobacco use date assessed 04/24/24 04/24/24 13:10 Patient Tobacco Use Status Never used Tobacco 04/24/24 13:05 e-Cigarette/Vaping Use Never Used 04/24/24 13:05 PHQ-9: PHQ-9 Score PHQ-9: Total score 0 04/24/24 13:10 Depression Screening Interpretation: Negative Thrive Assessment: Date of Thrive Assessment Date Thrive assessed 04/14/24 04/24/24 13:05 Const General: cooperative and no acute distress Orientation/consciousness: patient oriented x3 Limitations: ambulation with walker Resp Effort & Inspection: normal respiratory effort Auscultation: clear to auscultation bilaterally Cardio Heart sounds: S1 normal heart sound present and S2 normal heart sound present Skin Other: Mild redness left lower leg, Edema +1 non pitting, dry skin. Non tender. Neuro General: patient oriented x3 and moves all extremities Psych Speech and movement: Normal speech and movement present Assessment and Plan Assessment & Plan (1) Cellulitis of left leg: Code(s): L03.116 - Cellulitis of left lower limb Plan: Completed Doxy Stable, infection resolved. (2) Acute deep vein thrombosis of left lower extremity: Code(s): I82.402 - Acute embolism and thrombosis of unspecified deep veins of left lower extremity Qualifiers: Affected thrombotic vein of extremity: femoral Qualified Code(s): I82.412 - Acute embolism and thrombosis of left femoral vein Plan: Continue on Eliquis as directed F/U with Vascular surgery as scheduled. Coding Level of Care Code TCM Mod MDM <= 14 Days Diagnoses Cellulitis of left leg L03.116 Acute deep vein thrombosis (DVT) of femoral vein of left lower extremity I82.412 Affected thrombotic vein of extremity: femoral Time Spent (min) 20 Comment Spent reviewing hospital notes.
[2024-04-24 13:07] VITALS: BP 120/60; PULSE 68; O2SAT 99; BMI 23.4
== END 2024-04-24 13:32 | disposition home or self-care (01) ==
PROVIDERS: PCP Internal Medicine; Visit Provider Nurse Practitioner Family
DX: L03.116 Cellulitis of left lower limb (principal); I82.412 Acute embolism and thrombosis of left femoral vein

== ENCOUNTER → 2024-04-24 13:03 | Outpatient (BNVA) | payer MEDICARE, OTHER, SELFPAY | PROVIDERS: PCP Internal Medicine; Visit Provider Nurse Practitioner Family | DX: L03.116 Cellulitis of left lower limb (principal); I82.412 Acute embolism and thrombosis of left femoral vein; Z79.01 Long term (current) use of anticoagulants | CPT/HCPCS: 96127; 99212 ==

== ENCOUNTER 2024-05-01 13:00 | Outpatient (AMB) | payer MEDICARE, OTHER, SELFPAY ==
[2024-05-01 13:05] VITALS: BMI 23.4
--- NOTE | 2024-05-01 13:05 | MHC.OFFVIS ---
Vital Signs 05/01/24 13:05 Height 5 ft 6 in Weight 145 lb BMI 23.4 Intake Visit Reasons: post op Thrombectomy 04/13/2024 Intake Note: follow up Left LE thrombectomy 04/13/24, pt states cellulitis is most bothersome issue as of today. Accompanied by: Self / Same As Patient Allergies Penicillins [PENICILLINS] Allergy (Intermediate, Verified 05/01/24 13:09) RASH halothane [HALOTHANE] Adverse Reaction (Intermediate, Verified 05/01/24 13:09) ELEVATED LIVER ENZYMES HPI HPI post op Thrombectomy 04/13/2024: Details: Very pleasant 84-year-old female presents for follow-up status post left lower extremity mechanical venous thrombectomy. This was performed on 04/13/2024. She was subsequently discharged from the hospital and maintained on Eliquis. On the left pretibial surface there is an open area that she reports has been draining serous fluid. She currently has an Quinten wrap overlying this area. She now presents for routine postprocedure follow-up. She reports no postprocedure issues. COUNTS INCLUDE 234 BEDS AT THE [facility] Medical History Hypertension COPD (chronic obstructive pulmonary disease) Allergic rhinitis Surgical History No history of previous surgery Family History Mother No problems noted. Father No problems noted. Social History Household Members: Children Housing: House Do you presently have visiting nurse or other home services: No Alcohol intake: never Patient Tobacco Use Status: Never used Tobacco e-Cigarette/Vaping Use: Never Used Second Hand Smoke Exposure: No service: No Current occupational status: retired Cognitive needs: Yes (Walker, cane) Hearing needs: No Vision needs: Yes (reading glasses) Review of Systems Const All systems reviewed & are unremarkable except as noted in HPI and below Reports no additional complaints ENT Reports Normal hearing present Card Denies chest pain, Denies chest pain at rest, Denies chest pain with activity and Denies pedal edema Resp Denies cough GI Denies abdominal pain Musc Denies abnormal gait, Denies muscle cramps and Denies radiating pain into limb Skin/Breast Denies skin ulcer and Denies wounds Neuro Reports Normal hearing present and Denies abnormal gait Psych Reports no additional complaints Physical Exam Vital Signs: BMI result Body Mass Index 23.4 Const General: cooperative, healthy appearing and comfortable Orientation/consciousness: oriented to person, oriented to place and oriented to time HEENT Head: Yes normal to inspection Neck Neck: Yes normal visual inspection Carotids: no bruits Chest Chest palpation & inspection: normal inspection of the chest Resp Effort & Inspection: normal respiratory effort and able to speak in complete sentences Auscultation: clear to auscultation bilaterally, no crackles, no rales, no rhonchi and no wheezes Cardio Rate: regular rate Rhythm: regular rhythm Heart sounds: S1 normal heart sound present and S2 normal heart sound present Bruits: no carotid bruits Peripheral pulses: Peripheral pulses 2+ throughout GI Inspection: Yes normal to inspection Skin Wounds: no wounds Hair: normal Neuro General: oriented to person, oriented to place and oriented to time Cranial nerves: Yes CN's II-XII intact bilaterally and Yes Normal hearing present Cognition (Neuro): normal cognition Motor exam (neuro): 5/5 motor strength present throughout Extrem Other: venous exam: +2 edema Left lower extremity open area with mild ulcerations and serous drainage General: No clubbing, No cyanosis and No edema Psych Appearance: grossly normal Mental Status: mental status grossly normal Speech and movement: Normal speech and movement present Assessment & Plan Assessment & Plan (1) Acute deep vein thrombosis of left lower extremity: Code(s): I82.402 - Acute embolism and thrombosis of unspecified deep veins of left lower extremity Category: Medical Qualifiers: Affected thrombotic vein of extremity: femoral Qualified Code(s): I82.412 - Acute embolism and thrombosis of left femoral vein Plan: Patient is doing well status post mechanical venous thrombectomy. She will need to be maintained on Eliquis. This may be lifelong in nature as it was a significant event. We will continue to follow her for nonhealing ulcer in 1 month's time Please note a longitudinal relationship has been created with the patient and we have been following and surveillance this chronic condition. (2) Leg ulcer, left: Code(s): L97.929 - Non-pressure chronic ulcer of unspecified part of left lower leg with unspecified severity Category: Medical Qualifiers: Non-pressure ulcer stage: unspecified non-pressure ulcer stage Qualified Code(s): L97.929 - Non-pressure chronic ulcer of unspecified part of left lower leg with unspecified severity Plan: Superficial wounds. At the current time we did discussed local wound care and keeping this area dry. In addition Quinten wraps. Coding Level of Care Code Est Pt Level 3 (60554) Complex EM visit Add On G2211 Diagnoses Acute deep vein thrombosis (DVT) of femoral vein of left lower extremity I82.412 Affected thrombotic vein of extremity: femoral Ulcer of left lower extremity, unspecified ulcer stage L97.929 Non-pressure ulcer stage: unspecified non-pressure ulcer stage
== END 2024-05-01 13:26 | disposition home or self-care (01) ==
PROVIDERS: PCP Internal Medicine; Visit Provider Surgery Vascular Surgery
DX: I82.412 Acute embolism and thrombosis of left femoral vein (principal); L97.929 Non-pressure chronic ulcer of unspecified part of left lower leg with unspecified severity
CPT/HCPCS: 99213; G2211

== ENCOUNTER → 2024-05-01 13:00 | Outpatient (BNVA) | payer MEDICARE, OTHER, SELFPAY | PROVIDERS: PCP Internal Medicine; Visit Provider Surgery Vascular Surgery | DX: I82.412 Acute embolism and thrombosis of left femoral vein (principal); L97.929 Non-pressure chronic ulcer of unspecified part of left lower leg with unspecified severity; L03.90 Cellulitis, unspecified; Z98.890 Other specified postprocedural states; Z79.01 Long term (current) use of anticoagulants | CPT/HCPCS: 99212 ==

== ENCOUNTER 2024-05-05 14:13 | Outpatient (AMB) | payer MEDICARE, OTHER, SELFPAY ==
[2024-05-05 14:15] VITALS: BP 122/70; PULSE 110; TEMP 37; O2SAT 100
--- NOTE | 2024-05-05 14:15 | MHC.OFFWIV ---
Intake Vital Signs 05/05/24 14:15 Height 5 ft 6 in BP 122/70 Blood Pressure Location Rt brachial Position Sitting Pulse 110 H Pulse Source Pulse Oximeter Temp 98.6 F Temp Source Oral Pulse Oximetry (%) 100 Oxygen Delivery Method Room Air Intake Visit Reasons: EP/ LT leg cellulitis? post surgery Intake Note: pt is here for left leg cellulitis, patient recently had leg surgery Patient Tobacco Use Status: Never used Tobacco Allergies Penicillins [PENICILLINS] Allergy (Intermediate, Verified 08/17/24 13:19) RASH halothane [HALOTHANE] Adverse Reaction (Intermediate, Verified 08/17/24 13:19) ELEVATED LIVER ENZYMES Do you need a note to return to daycare/school/sports/work: No HPI EP/ LT leg cellulitis? post surgery HPI Details Patient is an 84-year-old female comes to the walk-in clinic about 3 weeks after having a thrombectomy and clot removal to her left lower extremity. She reports that her wounds are healing, however she was only continued on a home dose of doxycycline for 5 days post IV antibiotics, and she reports that since then her lower leg has started to get red again, and warm to the touch. She has VNA services that come to her house twice a week for wound care and physical therapy, and the VNA was worried about her leg worsening and had called the surgeon who wanted her to come for urgent evaluation. She denies fever or chills, nausea vomiting or diarrhea, weakness, myalgias or malaise, dizziness or vertigo, headache, or any other significant symptoms. [facility] Medical History (Updated 08/25/24 @ 00:02 by Amrita French) Acute deep vein thrombosis of left lower extremity Hypertension COPD (chronic obstructive pulmonary disease) Allergic rhinitis Surgical History No history of previous surgery Family History Mother No problems noted. Father No problems noted. Social History Household Members: Children Housing: House Do you presently have visiting nurse or other home services: Yes Alcohol intake: never Patient Tobacco Use Status: Never used Tobacco Tobacco use type: Cigarette e-Cigarette/Vaping Use: Never Used Second Hand Smoke Exposure: No service: No Current occupational status: retired Cognitive needs: Yes (Walker, cane) Hearing needs: No Vision needs: Yes (reading glasses) Review of Systems Const All systems reviewed & are unremarkable except as noted in HPI and below Physical Exam Vital Signs: Last Vital Signs Temp 98.6 F 05/05/24 14:15 Pulse 110 H 05/05/24 14:15 BP 122/70 05/05/24 14:15 Pulse Ox 100 05/05/24 14:15 Oxygen Delivery Method Room Air 05/05/24 14:15 Const General: cooperative, healthy appearing, comfortable, no acute distress, alert, awake and well groomed; No anxious, diaphoretic, ill appearing, intoxicated appearing, poor hygiene or tired appearing Nutritional Appearance: average body habitus Resp Effort & Inspection: normal respiratory effort Cardio Rate: regular rate Skin Other: Good color, warm and dry Extrem Other: Left lower extremity has erythema and warmth from ankle to just inferior to the knee over the cordon and calf. She has ulcerative wounds that have granulation tissue on the wound beds. She is neurovascularly intact distally Psych Appearance: grossly normal Mental Status: mental status grossly normal Speech and movement: Normal speech and movement present Affect: normal affect Attitude: cooperative Thought process: Normal thought process present Insight: Good insight present (Psych) Judgement: Good judgement present (Psych) Assessment & Plan Assessment & Plan (1) Cellulitis: Code(s): L03.90 - Cellulitis, unspecified Qualifiers: Laterality: left Site of cellulitis: extremity Site of cellulitis of extremity: lower extremity Qualified Code(s): L03.116 - Cellulitis of left lower limb Plan: Patient is an 84-year-old female comes to the walk-in clinic about 3 weeks after having a thrombectomy and clot removal to her left lower extremity. She reports that her wounds are healing, however she was only continued on a home dose of doxycycline for 5 days post IV antibiotics, and she reports that since then her lower leg has started to get red and warm again. No systemic symptoms of infection at this point, except for fast heart rate which did improve at rest. Her blood pressure is stable and she does not have a fever. Overall, she reports that the swelling is improving status post her surgery however, and the wounds were starting to fill with granulation tissue. She does have warm and erythematous skin from her ankle to under her knee though, and while it is likely that she is hyperpigmented even at baseline, I did start her back up on doxycycline. She has VNA care coming to her home multiple times a week for wound care, and she is following up with the vascular surgeon in 2 days. She should monitor symptoms closely and go to emergency department in the meantime if symptoms do not improve or worsen. She has family to help her. Medications: New doxycycline hyclate 100 mg PO BID 20 tabs 0RF 10 days Coding Level of Care Code Est Pt Level 4 (50884) Diagnoses Cellulitis of left lower extremity L03.116 Laterality: left Site of cellulitis: extremity Site of cellulitis of extremity: lower extremity
== END 2024-05-05 14:55 | disposition home or self-care (01) ==
PROVIDERS: PCP Internal Medicine; Visit Provider Physician Assistant Medical
DX: L03.116 Cellulitis of left lower limb (principal)

== ENCOUNTER → 2024-05-05 14:13 | Outpatient (BNVA) | payer MEDICARE, OTHER, SELFPAY | PROVIDERS: PCP Internal Medicine | DX: L03.116 Cellulitis of left lower limb (principal); Z98.890 Other specified postprocedural states | CPT/HCPCS: 99212 ==

== ENCOUNTER 2024-05-25 14:35 | Outpatient (AMB) | payer MEDICARE, OTHER, SELFPAY ==
--- NOTE | 2024-05-25 14:47 | MHC.OFFWIV ---
Intake Vital Signs 05/25/24 14:49 05/25/24 15:20 Height 5 ft 6 in Weight 145 lb BMI 23.4 BP 120/80 Blood Pressure Location Lt brachial Position Sitting Pulse 65 Pulse Source Pulse Oximeter Pulse Oximetry (%) 92 97 Oxygen Delivery Method Room Air Room Air Intake Visit Reasons: EP Leg infection? Intake Note: Patient here for left leg celullitis Patient Tobacco Use Status: Never used Tobacco Allergies Penicillins [PENICILLINS] Allergy (Intermediate, Verified 05/25/24 14:50) RASH halothane [HALOTHANE] Adverse Reaction (Intermediate, Verified 05/25/24 14:50) ELEVATED LIVER ENZYMES HPI HPI Comments History of Present Illness Details 84 y/o female patient who presents concerned her left lower leg is infected. She was admitted at [facility] on 04/13/24 for Cellulitis and DVT left lower leg. She underwent Left leg Thrombectomy for DVT and was put on Eliquis 5 mg BID. She has been taking her Eliquis as prescribed. She was discharged home on 04/14/24 in stable condition. She completed Doxy course for Cellulitis. Then on May 05, she came to this clinic for concern for the leg being reinfected and she was given doxycycline for 10 days. She says she only took it for 4 days and now she thinks the infection is worse. She did have wound care change her bandages and they are supposed to be using calcium alginate and changing the dressing 3 times a week. Patient denies any fevers, shortness of breath, trouble breathing or leg swelling. Patient then tells me she does not feel quite like herself but she can not really describe what she means by that. She states she remembers everything like she normally does but she feels like something is wrong however she can not articulate what she means by this. [facility] Medical History Hypertension COPD (chronic obstructive pulmonary disease) Allergic rhinitis Surgical History No history of previous surgery Family History Mother No problems noted. Father No problems noted. Social History Household Members: Children Housing: House Do you presently have visiting nurse or other home services: No Alcohol intake: never Patient Tobacco Use Status: Never used Tobacco e-Cigarette/Vaping Use: Never Used Second Hand Smoke Exposure: No service: No Current occupational status: retired Cognitive needs: Yes (Walker, cane) Hearing needs: No Vision needs: Yes (reading glasses) Review of Systems Const All systems reviewed & are unremarkable except as noted in HPI and below Physical Exam Vital Signs: Last Vital Signs Pulse 65 05/25/24 14:49 BP 120/80 05/25/24 14:49 Pulse Ox 97 05/25/24 15:20 Oxygen Delivery Method Room Air 05/25/24 15:20 BMI result Body Mass Index 23.4 Const General: cooperative, healthy appearing, comfortable and no acute distress Nutritional Appearance: thin Orientation/consciousness: patient oriented x3 Limitations: ambulation with walker (very unsteady - difficult to rise from chair with Oofos slides on) HEENT Head: Yes normal to inspection Resp Effort & Inspection: normal respiratory effort and able to speak in complete sentences Neuro General: patient oriented x3 Assessment & Plan Assessment & Plan (1) Cellulitis of left leg: Code(s): L03.116 - Cellulitis of left lower limb Plan: Represcribed 10 days of doxycycline and stressed that the patient take the entire course this time. Sent Sean to pharmacy as doxy makes her a little nauseous. Wrote down calcium alginate on a piece of paper for her to make sure that the wound care nurse is applying this to her wound when she comes next. Wound care as supposed to be coming 3 times a week and was supposed to come this morning but when we unwrapped with a bandage, we did not see any calcium alginate in place. As we do not have this product at the walk-in clinic, we put Xeroform in its place and rewrapped it with a nonadherent dressing and gauze. Spoke to patient's son and recommended somebody stay with the patient for the weekend to ensure she is steady on her feet as she is on a blood thinner and she needed my assistance to rise from the chair but then was able to ambulate with her walker. She is wearing a slippery shoe and she says when she wears regular shoes, she is able to rise from her chair easier. Recommended she wear a non slippery shoe and that somebody keep a close eye on her to make sure she is ambulating safely so she does not fall and hit her head while taking a blood thinner because she could end up with a head bleed. Also we talked about the fact that the patient stated she did not really feel like herself but she could not really tell me why that was and if that does not improve or if she feels worse over the weekend, they should bring her to the emergency department for a thorough workup. Plan See above Medications: New ondansetron 4 mg PO Q8H PRN 10 tabs 0RF nausea and vomiting doxycycline hyclate 100 mg PO BID 14 tabs 0RF Coding Level of Care Code Est Pt Level 4 (42933) Diagnoses Cellulitis of left leg L03.116
[2024-05-25 14:49] VITALS: BP 120/80; PULSE 65; O2SAT 92; BMI 23.4
[2024-05-25 15:20] VITALS: O2SAT 97
== END 2024-05-25 16:14 | disposition home or self-care (01) ==
PROVIDERS: PCP Internal Medicine; Visit Provider Physician Assistant
DX: L03.116 Cellulitis of left lower limb (principal)

== ENCOUNTER → 2024-05-25 14:35 | Outpatient (BNVA) | payer MEDICARE, OTHER, SELFPAY | PROVIDERS: PCP Internal Medicine | DX: L03.116 Cellulitis of left lower limb (principal) | CPT/HCPCS: 99212 ==

== ENCOUNTER 2024-06-01 11:37 | Outpatient (AMB) | payer MEDICARE, OTHER, SELFPAY ==
[2024-06-01 11:39] VITALS: BP 126/82; PULSE 100; O2SAT 97; BMI 21.6
--- NOTE | 2024-06-01 11:39 | A.OFFPC_ITS ---
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 Accompanied by: Self / Same As Patient Allergies Penicillins [PENICILLINS] Allergy (Intermediate, Verified 06/01/24 11:39) RASH halothane [HALOTHANE] Adverse Reaction (Intermediate, Verified 06/01/24 11:39) ELEVATED LIVER ENZYMES Medication List - Last Reconciled 06/04/24 by Boubacar Delarosa MD apixaban (Eliquis DVT-PE Treat 30D Start) take 2 tabs twice daily for 7 days (13 more doses), then after that take 1 tab once daily ciprofloxacin HCl (Cipro) 250 mg PO BID fluticasone propion-salmeterol 100-50 mcg/dose 1 ea PO BID 90 days lisinopril 20 mg PO DAILY montelukast 10 mg PO DAILY Tobacco use date assessed: 04/24/24 Fall risk assessment: No Falls in past year Last assessed Fall Risk: 06/01/24 Dental Screening Dental Screen Date: 04/24/24 HPI leg infection HPI Details has a partial skin avulsion with surrounding cellulitis left lower leg; needs debridement [facility] Medical History Hypertension COPD (chronic obstructive pulmonary disease) Allergic rhinitis Surgical History No history of previous surgery Family History Mother No problems noted. Father No problems noted. Social History Household Members: Children Housing: House Do you presently have visiting nurse or other home services: No Alcohol intake: never Patient Tobacco Use Status: Never used Tobacco Tobacco use type: Cigarette e-Cigarette/Vaping Use: Never Used Second Hand Smoke Exposure: No service: No Current occupational status: retired Cognitive needs: Yes (Walker, cane) Hearing needs: No Vision needs: Yes (reading glasses) Questionnaire Thrive Questionnaire Date Thrive assessed: 04/14/24 Are you currently unemployed and looking for a job?: No SALVADOR-7 AMB Questionnaire SALVADOR-7 Date SALVADOR - 7 assessed: 04/24/24 Source: Developed by Drs. Boston Morris, Kayla Levi, Jonah Matthews and colleagues, with an educational camacho from [employer]. Review of Systems Const Denies chills, Denies headache(s) and Denies weight loss ENT Denies headache(s) Card Denies chest pain, Denies syncope, Denies irregular heart rhythm and Denies dyspnea Resp Denies chest congestion, Denies cough and Denies dyspnea GI Denies abdominal pain, Denies change in stool character, Denies nausea and Denies vomiting Musc Denies deformity and Denies joint swelling Neuro Denies syncope and Denies headache(s) Physical exam (Primary Care) Vital Signs: Last Vital Signs Pulse 100 06/01/24 11:39 BP 126/82 06/01/24 11:39 Pulse Ox 97 06/01/24 11:39 Oxygen Delivery Method Room Air 06/01/24 11:39 BMI result Body Mass Index 21.6 Tobacco/Smoking Status: Tobacco use Status Tobacco use date assessed 04/24/24 06/01/24 11:46 Patient Tobacco Use Status Never used Tobacco 06/01/24 11:46 Tobacco use type Cigarette 06/01/24 11:46 e-Cigarette/Vaping Use Never Used 06/01/24 11:46 Thrive Assessment: Date of Thrive Assessment Date Thrive assessed 04/14/24 06/01/24 11:46 Const General: cooperative, comfortable, no acute distress and alert Neck Neck: Yes no lymphadenopathy Thyroid: Thyroid normal Resp Effort & Inspection: normal respiratory effort Auscultation: clear to auscultation bilaterally Percussion: percussion normal Cardio Jugular venous distension: no JVD Palpation: normal PMI Rate: regular rate Rhythm: regular rhythm Heart sounds: S1 normal heart sound present and S2 normal heart sound present GI Inspection: Yes normal to inspection Palpation (GI): No hepatosplenomegaly present Skin Other: 10 cm partial skin avulsion left lower extremity with surrounding cellulitis Extrem General: Yes no clubbing, cyanosis or edema Coding Level of Care Code Est Pt Level 3 (25746) Diagnoses Wound of left lower extremity S81.802A Assessment & Plan Assessment & Plan (1) Wound of left lower extremity: Code(s): S81.802A - Unspecified open wound, left lower leg, initial encounter Category: Medical Plan: referred to wound clinic; rx sent Orders: Referrals Wound Care Referral S81.802A - Unspecified open wound, left lower leg, initial encounter Medications: New ciprofloxacin HCl (Cipro) 250 mg PO BID 20 tabs 0RF
== END 2024-06-01 12:13 | disposition home or self-care (01) ==
LOC: HO.HMCH 11:38
PROVIDERS: PCP Internal Medicine; Visit Provider Internal Medicine
DX: S81.802A Unspecified open wound, left lower leg, initial encounter (principal)

== ENCOUNTER → 2024-06-01 11:37 | Outpatient (BNVA) | payer MEDICARE, OTHER, SELFPAY | PROVIDERS: PCP Internal Medicine; Visit Provider Internal Medicine | DX: S81.802A Unspecified open wound, left lower leg, initial encounter (principal) | CPT/HCPCS: 99212 ==

== ENCOUNTER 2024-06-05 14:06 | Outpatient (AMB) | payer MEDICARE, OTHER, SELFPAY ==
--- NOTE | 2024-06-05 14:10 | A.OFFVIS_ITS ---
Vital Signs 06/05/24 14:13 Height 5 ft 6 in Weight 134 lb BMI 21.6 Intake Visit Reasons: 1m leg check Intake Note: follow up left LE thrombectomy and cellulitis w/ non healing ulcers. Pt states she has aides that help her 2 to 3 times a week. Pt was doing it herself but now she has her aides helping to dress the leg. Wounds still draining and LE are red. Accompanied by: Self / Same As Patient Allergies Penicillins [PENICILLINS] Allergy (Intermediate, Verified 06/05/24 14:15) RASH halothane [HALOTHANE] Adverse Reaction (Intermediate, Verified 06/05/24 14:15) ELEVATED LIVER ENZYMES HPI HPI 1m leg check: Details: Very pleasant 84-year-old female who had undergone left lower extremity mechanical venous thrombectomy on 04/13/2024 presents for follow-up regarding nonhealing left lateral leg wound. Her legs have been significantly edematous. There has been serous drainage and there is this lateral leg wound with that has been a source of discomfort for her. She had a dressing with significant serous drainage on it. She now presents for routine follow-up. [facility] Medical History Hypertension COPD (chronic obstructive pulmonary disease) Allergic rhinitis Surgical History No history of previous surgery Family History Mother No problems noted. Father No problems noted. Social History Household Members: Children Housing: House Do you presently have visiting nurse or other home services: No Alcohol intake: never Patient Tobacco Use Status: Never used Tobacco Tobacco use type: Cigarette e-Cigarette/Vaping Use: Never Used Second Hand Smoke Exposure: No service: No Current occupational status: retired Cognitive needs: Yes (Walker, cane) Hearing needs: No Vision needs: Yes (reading glasses) Review of Systems Const Reports as per HPI ENT Reports no additional complaints Card Denies chest pain, Denies chest pain at rest and Denies chest pain with activity Resp Denies chest congestion and Denies cough GI Reports no additional complaints Musc Details: pain over varicosities, aching of lower extremities, swelling, cramping, heavi ness and tiredness, itching Denies abnormal gait Skin/Breast Reports pruritus and Denies wounds Neuro Reports no additional complaints and Denies abnormal gait Psych Denies no additional complaints Physical Exam Vital Signs: BMI result Body Mass Index 21.6 Const General: cooperative, healthy appearing and comfortable Orientation/consciousness: oriented to person, oriented to place and oriented to time Neck Carotids: no bruits Chest Chest palpation & inspection: normal inspection of the chest and normal palpat ion of entire chest wall Resp Effort & Inspection: normal respiratory effort and able to speak in complete sentences Cardio Rate: regular rate Heart sounds: S1 normal heart sound present and S2 normal heart sound present Peripheral pulses: Peripheral pulses 2+ throughout GI Inspection: Yes normal to inspection Skin Other: +2 edema, left lateral leg 10 x 5 x 0.1 cm significantly excoriated areas CEAP Classification C6 - active ulcer Ep - Etiology Primary As - superficial veins P - reflux General skin exam: dry skin Neuro General: oriented to person, oriented to place and oriented to time Extrem Right lower extremity: full ROM, normal capillary refill and edema Left lower extremity: full ROM, normal capillary refill and edema Psych Mental Status: mental status grossly normal Assessment & Plan Assessment & Plan (1) Leg ulcer, left: Code(s): L97.929 - Non-pressure chronic ulcer of unspecified part of left lower leg with unspecified severity Category: Medical Qualifiers: Non-pressure ulcer stage: unspecified non-pressure ulcer stage Qualified Code(s): L97.929 - Non-pressure chronic ulcer of unspecified part of left lower leg with unspecified severity Plan: In short patient has nonhealing left lower extremity ulcer. At the current time would recommend alginate dressings along with a Kerlix wrap and Quinten wrap. We will have her follow-up in approximately 1 months time. The underlying issue is that she has deep venous insufficiency by the mere fact a prior DVT. The goal is to try to get as much edema under control as possible in order to try to help this took wound to heal. Once again we will work with visiting nurses to try to get a better dressing regimen for her and she will follow up with us in 1 month's time. Thank you for allowing us to assist in her care. If there are a ny questions or concerns please do not hesitate to contact us. Coding Level of Care Code Est Pt Level 4 (10314) Diagnoses Ulcer of left lower extremity, unspecified ulcer stage L97.929 Non-pressure ulcer stage: unspecified non-pressure ulcer stage
[2024-06-05 14:13] VITALS: BMI 21.6
== END 2024-06-05 14:51 | disposition home or self-care (01) ==
LOC: HO.HVS 14:07
PROVIDERS: PCP Internal Medicine; Visit Provider Surgery Vascular Surgery
DX: L97.929 Non-pressure chronic ulcer of unspecified part of left lower leg with unspecified severity (principal)
CPT/HCPCS: 99214

== ENCOUNTER → 2024-06-05 14:06 | Outpatient (BNVA) | payer MEDICARE, OTHER, SELFPAY | PROVIDERS: PCP Internal Medicine; Visit Provider Surgery Vascular Surgery | DX: L97.929 Non-pressure chronic ulcer of unspecified part of left lower leg with unspecified severity (principal) | CPT/HCPCS: 99212 ==

== ENCOUNTER 2024-06-13 13:17 | Outpatient (RCR) | payer MEDICARE, OTHER, SELFPAY | END 2024-07-24 12:36 | disposition skilled nursing facility (03) | LOC: HO.WCC 13:17 | PROVIDERS: PCP Internal Medicine; Visit Provider Surgery | DX: I87.312 Chronic venous hypertension (idiopathic) with ulcer of left lower extremity (principal); L97.822 Non-pressure chronic ulcer of other part of left lower leg with fat layer exposed; Z86.718 Personal history of other venous thrombosis and embolism | CPT/HCPCS: 11042 ==

== ENCOUNTER 2024-06-18 12:04 | Emergency (ER) | payer MEDICARE, OTHER, SELFPAY ==
--- NOTE | ~2024-06-18 | CT_ITS ---
EXAMINATION: CT HEAD WITHOUT CONTRAST CLINICAL INFORMATION: Status post fall headache COMPARISON: December 05, 2013 TECHNIQUE: Contiguous axial imaging was performed from the skull base to vertex without intravenous administration of contrast. This CT examination was performed using dose optimization techniques as appropriate, variously including the following: *Automated exposure control *Adjustment of mA and/or kV according to patient size (this includes techniques or standardized protocols for targeted exams where dose is matched to indication/reason for exam; i.e. extremities or head) *Use of iterative reconstruction technique DLP: 665 mGy-cm FINDINGS: There is prominence of ventricles with layering of high attenuation material, blunt in the occipital horns bilaterally and unclear origin small amount of gas in the frontal horns of lateral ventricles. There are patchy periventricular white matter changes as a sequela of microangiopathy and sulci and ventricular prominence. There is hydrocephalus. Evaluation of osseous structures reveals no fractures. Paranasal sinuses are well-aerated. CT/CT head/brain wo IV con IMPRESSION: Unclear origin intraventricular air and intraventricular hemorrhage with layering of blood. Global volume loss with possible intracerebral This critical result was discussed with ALONZO Sesay at 1548 on 06/18/2024 and it was ascertained that the content and urgency of the report was understood at the time of direct communication. Electronically signed by: Gabriela Ray MD 06/18/2024 03:53 PM [facility]
--- NOTE | ~2024-06-18 | CT_ITS ---
EXAMINATION: CT CERVICAL SPINE WITHOUT CONTRAST CLINICAL INFORMATION: Cervical spine pain after fall COMPARISON: None available. TECHNIQUE: CT scan of cervical spine with coronal and sagittal reconstruction This CT examination was performed using dose optimization techniques as appropriate, variously including the following: *Automated exposure control *Adjustment of mA and/or kV according to patient size (this includes techniques or standardized protocols for targeted exams where dose is matched to indication/reason for exam; i.e. extremities or head) *Use of iterative reconstruction technique DLP: 152 mGy-cm FINDINGS: There is straightening of cervical lordosis without evidence of fractures, subluxations. There is no spinal canal stenosis. There is grade 1 anterior listhesis of C3 over C4 and narrowing of C5-6 and C7-7 intervertebral disc spaces. Soft tissues unremarkable. CT/CT cervical spine wo IV con IMPRESSION: Degenerative changes in cervical spine not associated with acute fractures or dislocations. Fleischner guidelines were followed. Electronically signed by: Gabriela Ray MD 06/18/2024 03:46 PM [facility]
--- NOTE | ~2024-06-18 | CT_ITS ---
EXAMINATION: CT LUMBAR SPINE WITHOUT CONTRAST CLINICAL INFORMATION: Status post fall. Low back pain. COMPARISON: None available. TECHNIQUE: Contiguous axial images through the lumbar spine from T12 to S1 using 2 mm collimation with bone and soft tissue algorithm. Sagittal and coronal reformatted images acquired. This CT examination was performed using dose optimization techniques as appropriate, variously including the following: *Automated exposure control *Adjustment of mA and/or kV according to patient size (this includes techniques or standardized protocols for targeted exams where dose is matched to indication/reason for exam; i.e. extremities or head) *Use of iterative reconstruction technique DLP; 319 mGy-cm FINDINGS: Last rib-bearing vertebra labeled T12. Multilevel facet joint hypertrophy, bilaterally from L3-4 to L5-S1. Grade 1 anterolisthesis L4-5 on a degenerative basis resulting in bilateral neuroforamina stenosis. Incomplete ankylosis L5-S1. No acute vertical disruption. No lytic or blastic lesions. Vacuum phenomenon and sclerosis at the sacroiliac joints no fully included in the exam. Osteopenia versus osteoporosis. Pseudoarthrosis of the posterior spinous processes L1-L3. No hematoma in the prevertebral compartment. Exophytic hypodensity in the kidneys, the largest in the right kidney. Calcified plaques throughout the abdominal aorta wall and iliac arteries and the origin of the mesenteric arteries and main renal arteries. No aneurysm in the abdominal aorta. Diverticula in the sigmoid colon. Calcified plaques in the splenic artery. CT/CT lumbar spine wo IV con IMPRESSION: Multilevel spondylosis resulting in grade 1 anterolisthesis L4-5 without acute fracture or trauma-related listhesis. Bilateral renal cysts. Atherosclerosis disease. Diverticular disease. Electronically signed by: Carlos Moore MD 06/18/2024 03:27 PM EST
[2024-06-18 12:30] VITALS: BP 136/66; PULSE 68; O2SAT 91; BMI 22.1
[2024-06-18 12:39] VITALS: BP 152/57; PULSE 61; RESP 15; TEMP 36.7; O2SAT 94
--- NOTE | 2024-06-18 12:46 | ED_ITS ---
HPI - General Adult General Chief complaint: Fall Stated complaint: Fall, no LOC, pt on thinners, pain in buttocks Time Seen by Provider: 06/18/24 12:45 Source: patient and EMS Mode of arrival: EMS Limitations: no limitations History of Present Illness ED Provider: Leatha Kelley PA-C HPI narrative: Patient is an 84 year old assigned female at with a history of DVT on eliquis and HTN presenting to the emergency department today with buttock pain after a mechanical fall. Patient states that she fell last night or early this morning she tripped and fell landing hard on her buttocks. Patient states that she did not hit her head or have any loss of consciousness with the incident. Patient denies any dizziness, lightheadedness, abdominal pain, nausea, vomiting, fever, chills, blurry vision, double vision, loss of vision, chest pain, difficulty breathing, shortness of breath, night sweats, pain with urination, increased urinary frequency, increased urinary urgency, blood in her urine or stool, syncope or a near syncopal episode, bowel incontinence, bladder incontinence, or any other complaints at this time. Relieving factors: none Exacerbating factors: none Associated symptoms: denies other symptoms Treatments prior to arrival: none Related Data Previous Rx's ?Medication ?Instructions ?Recorded montelukast 10 mg tablet 10 mg PO DAILY #90 tabs 10/31/22 lisinopril 20 mg tablet 20 mg PO DAILY #90 tabs 02/28/23 fluticasone 100 mcg-salmeterol 50 1 ea PO BID copd 90 days #60 ea 01/30/24 mcg/dose blistr powdr for inhalation apixaban 5 mg (74 tabs) tablets in See Rx Instructions .Route 04/14/24 a dose pack (Eliquis DVT-PE Treat .COMPLEX #110 ea 30D Start) ciprofloxacin HCl 250 mg tablet 250 mg PO BID #20 tabs 06/01/24 (Cipro) Allergies Allergy/AdvReac Type Severity Reaction Status Date / Time Penicillins [PENICILLINS] Allergy Intermediate RASH Verified 06/18/24 12:32 halothane [HALOTHANE] AdvReac Intermediate ELEVATED Verified 06/18/24 12:32 LIVER ENZYMES Review of Systems Constitutional: Constitutional: Reports no additional constitutional complaints, Denies chills, Denies fever(s) and Denies night sweats Eyes: Eyes: Reports no additional eye complaints, Denies blurry vision, Denies change in vision, Denies diplopia, Denies eye discharge, Denies loss of vision and Denies eye pain ENT: Denies dizziness Cardiovascular: Cardiovascular: Reports no additional cardiovascular complaints, Denies chest pain, Denies lightheadedness, Denies Loss of Consciousness and Denies dyspnea Respiratory: Respiratory: Reports no additional respiratory complaints and Denies dyspnea Gastrointestinal: Gastrointestinal: Reports no additional gastrointestinal complaints, Denies abdominal pain, Denies melena, Denies hematochezia, Denies change in bowel habits and Denies change in stool character Genitourinary: Genitourinary: Denies hematuria, Denies urinary frequency, Denies dysuria, Denies urinary incontinence, Denies urinary hesitancy and Denies urinary urgency Musculoskeletal: Musculoskeletal: Reports no additional musculoskeletal complaints, Denies numbness and Denies tingling Comments: buttock / low back pain Neurologic: Denies dizziness, Denies loss of vision, Denies numbness and Denies tingling Psychiatric: Psychiatric: Reports no additional psychiatric complaints Endocrine: Endocrine: Reports no additional endocrine complaints Hematologic/Lymphatic: Hematologic/Lymphatic: Reports no additional hematologic/lymphatic complaints Allergic/Immunologic: Allergic/Immunologic: Reports no additional allergic/immunologic complaints [facility] Past Medical History Attestation statement: The following information was validated with the patient. Source: old records reviewed and nursing notes reviewed Medical History Hypertension COPD (chronic obstructive pulmonary disease) Allergic rhinitis Surgical History No history of previous surgery Family History Family History Mother No problems noted. Father No problems noted. Social History Social History Household Members: Children Housing: House Do you presently have visiting nurse or other home services: No Alcohol intake: never Patient Tobacco Use Status: Never used Tobacco Tobacco use type: Cigarette e-Cigarette/Vaping Use: Never Used Second Hand Smoke Exposure: No Advance Directives: No Advance Directives Information Provided: Yes Do you have a plan to hurt others: No Plan service: No Current occupational status: retired Cognitive needs: Yes (Alvaro, cane) Hearing needs: No Vision needs: Yes (reading glasses) Physical Exam ED Vital Signs: Vital Signs - 24 hr 06/18/24 12:30 06/18/24 12:39 06/18/24 15:56 Temperature 98.1 F 97.8 F Pulse Rate 61 76 Respiratory Rate 15 20 Blood Pressure 152/57 H 106/101 H Pulse Oximetry 94 97 Oxygen Delivery Method Nasal Cannula Nasal Cannula Room Air Oxygen Flow Rate 2 BMI result Body Mass Index 22.1 Const General: cooperative, no acute distress, alert and awake Nutritional Appearance: well nourished Orientation/consciousness: patient oriented x3 Limitations: no limitations HENMT Head: Yes normal to inspection and Yes atraumatic Ears: hearing grossly normal bilaterally and external ears normal General nose exam: Normal external nose present, no nasal discharge noted and no epistaxis Face and sinus: Yes normal facial exam, No abrasion and No laceration Mouth: Normal oral and palatal mucosa present, no drooling and no muffled voice Eyes General: appearance normal, both eyes and all related structures Periorbital: periorbital findings normal Eyelids: Yes eyelids normal Conjunctivae: conjunctivae normal Pupils: Equal, round and reactive pupils present EOM: EOMs intact bilaterally Neck Neck: Yes normal visual inspection, Yes full ROM and Yes no lymphadenopathy Chest Chest palpation & inspection: normal inspection of the chest Resp Effort & Inspection: normal respiratory effort and able to speak in complete sentences GI Inspection: Yes normal to inspection Neuro General: patient oriented x3 and moves all extremities Cranial nerves: Yes Equal, round and reactive pupils present Cognition (Neuro): normal cognition Extrem General: Yes normal to inspection, Yes full ROM and Yes capillary refill normal Psych Appearance: grossly normal Mental Status: mental status grossly normal Affect: normal affect Attitude: cooperative Thought process: Normal thought process present Thought content: Normal thought content present Insight: Good insight present (Psych) Medical Decision Making Medical Decision Making MDM Narrative: Patient is an 84 year old assigned female at with a history of DVT on eliquis and HTN presenting to the emergency department today with buttock pain after a mechanical fall. Patient's physical exam was unremarkable. Patient's CT c-spine and lumbar spine showed no acute process. Patient's head CT showed an intraventricular hemorrhage as well as air within the ventricles. I explained my physical exam findings as well as all test results to the patient and the patient's son Gene. I answered all questions asked by the patient and the patient's son Gene. Patient and the patient's son Gene confirmed that the patient is a full code. I called and spoke to the trauma surgeon Dr. Montgomery at [facility] who recommended giving IV Kcentra and having the patient transferred to the [facility] ED. Patient and the patient's son Gene verbalized agreement and understanding with this treatment plan and transfer. Differential Diagnosis Differential Diagnoses: The differential diagnosis associated with the presentation includes Fall Intracranial hemorrhage Admission/Observation Consideration of admission/observation: Escalation of care including admission/observation considered Patient transferred to [facility] ED. Consult Healthcare Provider Management of the patient was discussed with: Safety Lead (spoke to Dr. Montgomery the trauma surgeon at [facility] as noted in the MDM Rationale portion of this note.) Independent Interpretation I performed an independent interpretation of an: CT Scan Interpretation: My interpretation is in agreement with the radiologist's impression of these imaging studies. EXAMINATION: CT LUMBAR SPINE WITHOUT CONTRAST CLINICAL INFORMATION: Status post fall. Low back pain. COMPARISON: None available. TECHNIQUE: Contiguous axial images through the lumbar spine from T12 to S1 using 2mm collimation with bone and soft tissue algorithm. Sagittal and coronal reformatted images acquired. This CT examination was performed using dose optimization techniques as appropriate, variously including the following: *Automated exposure control *Adjustment of mA and/or kV according to patient size (this includes techniques or standardized protocols for targeted exams where dose is matched to indication/reason for exam; i.e. extremities or head) *Use of iterative reconstruction technique DLP; 319 mGy-cm FINDINGS: Last rib-bearing vertebra labeled T12. Multilevel facet joint hypertrophy, bilaterally from L3-4 to L5-S1. Grade 1 anterolisthesis L4-5 on a degenerative basis resulting in bilateral neuroforamina stenosis. Incomplete ankylosis L5-S1. No acute vertical disruption. No lytic or blastic lesions. Vacuum phenomenon and sclerosis at the sacroiliac joints no fully included in the exam. Osteopenia versus osteoporosis. Pseudoarthrosis of the posterior spinous processes L1-L3. No hematoma in the prevertebral compartment. Exophytic hypodensity in the kidneys, the largest in the right kidney. Calcified plaques throughout the abdominal aorta wall and iliac arteries and the origin of the mesenteric arteries and main renal arteries. No aneurysm in the abdominal aorta. Diverticula in the sigmoid colon. Calcified plaques in the splenic artery. CT/CT lumbar spine wo IV con IMPRESSION: Multilevel spondylosis resulting in grade 1 anterolisthesis L4-5 without acute fracture or trauma-related listhesis. Bilateral renal cysts. Atherosclerosis disease. Diverticular disease. Electronically signed by: Carlos Moore MD 06/18/2024 03:27 PM [facility] [place] Dictated By: Carlos Garza MD Signed By: Electronically signed by Carlos Roper MD 06/18/24 1527 EXAMINATION: CT HEAD WITHOUT CONTRAST CLINICAL INFORMATION: Status post fall headache COMPARISON: December 05, 2013 TECHNIQUE: Contiguous axial imaging was performed from the skull base to vertex without intravenous administration of contrast. This CT examination was performed using dose optimization techniques as appropriate, variously including the following: *Automated exposure control *Adjustment of mA and/or kV according to patient size (this includes techniques or standardized protocols for targeted exams where dose is matched to indication/reason for exam; i.e. extremities or head) *Use of iterative reconstruction technique DLP: 665 mGy-cm FINDINGS: There is prominence of ventricles with layering of high attenuation material, blunt in the occipital horns bilaterally and unclear origin small amount of gas in the frontal horns of lateral ventricles. There are patchy periventricular white matter changes as a sequela of microangiopathy and sulci and ventricular prominence. There is hydrocephalus. Evaluation of osseous structures reveals no fractures. Paranasal sinuses are well-aerated. CT/CT head/brain wo IV con IMPRESSION: Unclear origin intraventricular air and intraventricular hemorrhage with layering of blood. Global volume loss with possible intracerebral This critical result was discussed with ALONZO Gusman at 1548 on 06/18/2024 and it was ascertained that the content and urgency of the report was understood at the time of direct communication. Electronically signed by: Gabriela Ray MD 06/18/2024 03:53 PM EST RP Dictated By: Gabriela Ray MD Signed By: Electronically signed by Gabriela Ray MD 06/18/24 1553 EXAMINATION: CT CERVICAL SPINE WITHOUT CONTRAST CLINICAL INFORMATION: Cervical spine pain after fall COMPARISON: None available. TECHNIQUE: CT scan of cervical spine with coronal and sagittal reconstruction This CT examination was performed using dose optimization techniques as appropriate, variously including the following: *Automated exposure control *Adjustment of mA and/or kV according to patient size (this includes techniques or standardized protocols for targeted exams where dose is matched to indication/reason for exam; i.e. extremities or head) *Use of iterative reconstruction technique DLP: 152 mGy-cm FINDINGS: There is straightening of cervical lordosis without evidence of fractures, subluxations. There is no spinal canal stenosis. There is grade 1 anterior listhesis of C3 over C4 and narrowing of C5-6 and C7-7 intervertebral disc spaces. Soft tissues unremarkable. CT/CT cervical spine wo IV con IMPRESSION: Degenerative changes in cervical spine not associated with acute fractures or dislocations. Fleischner guidelines were followed. Electronically signed by: Gabriela Ray MD 06/18/2024 03:46 PM EST RP Dictated By: Gabriela Ray MD Signed By: Electronically signed by Gabriela Ray MD 06/18/24 1544 Radiology Impression Discussion of test interpretation with radiology: I have reviewed the radiologist's reading. Independent Historian Clinical information obtained from an independent historian. History obtained from or confirmed by: EMS (EMS provided additional history and confirmed the history provided by the patient.) and Other (patient's son provided additional history and confirmed the history provided by the patient.) Critical Care Time Critical Care Time Critical Care Time: Yes Total Critical Care Time: 62 Attestation: I spent 62 minutes of Critical Care Time with this patient. This does not include time spent on separately reported billable procedures. Discharge Plan Discharge Clinical Impression: Intraventricular hemorrhage Patient Disposition: [facility] Transfer Details: [facility] - accepted by Dr. Montgomery Prescriptions: No Action montelukast 10 mg tablet 10 mg PO DAILY Qty: 90 8RF lisinopril 20 mg tablet 20 mg PO DAILY Qty: 90 8RF fluticasone propion-salmeterol 100-50 mcg/dose blister with device 1 ea PO BID 90 Days Qty: 60 3RF Eliquis DVT-PE Treat 30D Start 5 mg (74 tabs) tablets,dose pack See Rx Instructions .ROUTE .COMPLEX Qty: 110 0RF Rx Instructions: take 2 tabs twice daily for 7 days (13 more doses), then after that take 1 tab once daily ciprofloxacin HCl [Cipro] 250 mg tablet 250 mg PO BID Qty: 20 0RF Print Language: Irish
[2024-06-18 15:56] VITALS: BP 106/101; PULSE 76; RESP 20; TEMP 36.6; O2SAT 97
--- NOTE | 2024-06-18 16:22 | PC.NURSE ---
assumed care of patient after CT scan results. patient moved into ED room 1, patient left eye noted to be drooped, patient has equal hand grasps. patient is alert and oriented, knows name, year and president. patient pupils equal and reactive. additional 20# IV in the right wrist placed by this RN, labs drawn and sent.
--- NOTE | 2024-06-18 16:26 | PC.NURSE ---
patient noted to have bruise to left hip.
[2024-06-18 16:28] LABS: MANUAL DIFF FLAG NO
[2024-06-18 16:31] LABS: Basophils Absolute Auto 0.1 X10*3/uL (0.0-0.2); Basophils Percent Auto 0.7 % (0-2); Eosinophils Absolute Auto 0.1 X10*3/uL (0.0-0.4); Eosinophils Percent Auto 0.8 % (0-4); Hematocrit 39.5 % (37.0-47.0); Hemoglobin 13.1 g/dl (12.0-16.0); Imm Gran Abs Auto 0.06 X10*3/uL (0.00-0.03); Imm Gran Pct Auto 0.8 % (0.0-0.4); Lymphocytes Absolute Auto 0.8 X10*3/uL (1.2-4.9); Lymphocytes Percent Auto 10.3 % (20-40); Mean Corpuscular HGB Conc 33.2 g/dl (31.0-35.0); Mean Corpuscular Volume 93.4 fL (80.0-98.0); Mean Platelet Volume 9.7 fL (9.4-12.3); Monocytes Absolute Auto 0.5 X10*3/uL (0.1-1.2); Monocytes Percent Auto 6.2 % (2-11); Neutrophils Absolute Auto 6.1 x10*3/uL (2.0-8.3); Neutrophils Percent Auto 81.2 % (45-73); Platelet Count 309 X10*3/uL (160-400); Red Blood Count 4.23 X10*6/uL (4.20-5.50); White Blood Count 7.5 X10*3/uL (4.8-10.8)
[2024-06-18] MEDS: Hum Prothrombin Cplx(PCC)4Fact 2,000 UNIT in Container,Empty 0 ML 480 UNIT IV (16:33)
[2024-06-18 16:38] VITALS: BP 127/54; PULSE 71; RESP 14; TEMP 36.9; O2SAT 90
[2024-06-18 16:38] LABS: INTERNATIONAL NORM RATIO 1.2 (0.9-1.1)
[2024-06-18 16:41] LABS: Partial Thromboplastin Time 34.9 SEC (26.0-36.8)
--- NOTE | 2024-06-18 16:43 | PC.NURSE ---
patient placed on 2l NC due to sats 88%
[2024-06-18 16:47] LABS: Alanine Aminotransferase 11 U/L (0-31); Albumin Level 3.5 g/dL (3.5-5.0); Alkaline Phosphatase 73 U/L (39-117); Anion Gap 11 (12-20); Aspartate Amino Transferase 29 U/L (5-31); Bilirubin Total 0.8 mg/dL (0.0-1.0); Blood Urea Nitrogen 10 mg/dL (9-16); Carbon Dioxide 26 mmol/L (22-29); Chloride 109 mmol/L (96-108); Estimated Glomerular Filt Rate > 60; Glucose Random 92 mg/dL (60-115); Magnesium 2.1 mg/dL (1.6-2.6); Potassium 3.8 mmol/L (3.3-5.1); Sodium 142 mmol/L (135-145); Total Protein 6.2 g/dL (6.5-8.0)
[2024-06-18 16:50] VITALS: BP 139/60; PULSE 61; RESP 14; O2SAT 96
== END 2024-06-18 17:41 | disposition short-term general hospital (02) ==
PROVIDERS: Physician Assistant Medical; Emergency Provider Emergency Medicine; PCP Internal Medicine
DX: I61.5 Nontraumatic intracerebral hemorrhage, intraventricular (principal); S39.92XA Unspecified injury of lower back, initial encounter; R51.9 Headache, unspecified; M54.2 Cervicalgia; M54.50 Low back pain, unspecified; J44.9 Chronic obstructive pulmonary disease, unspecified; I10 Essential (primary) hypertension; W01.0XXA Fall on same level from slipping, tripping and stumbling without subsequent striking against object, initial encounter; Y93.89 Activity, other specified; Y92.89 Other specified places as the place of occurrence of the external cause; Y99.8 Other external cause status; Z86.718 Personal history of other venous thrombosis and embolism; Z79.01 Long term (current) use of anticoagulants; Z79.899 Other long term (current) drug therapy
CPT/HCPCS: 36415; 70450; 72125; 72131; 80053; 83735; 85025; 85610; 85730; 96365; 99284; 99285; J7168

== ENCOUNTER → 2024-06-18 12:50 | Outpatient (BNV) | payer MEDICARE, OTHER, SELFPAY | PROVIDERS: Emergency Provider Emergency Medicine Emergency Medical Services; PCP Internal Medicine; Visit Provider Radiology Diagnostic Radiology | DX: M54.50 Low back pain, unspecified (principal) | CPT/HCPCS: 72131 ==

== ENCOUNTER 2024-08-17 10:58 | Outpatient (AMB) | payer MEDICARE, SELFPAY ==
--- NOTE | 2024-08-17 11:18 | A.OFFPC_ITS ---
Vital Signs 08/17/24 11:19 Height 5 ft 6 in BMI Reason not done Patient refused/unable BP 120/68 Blood Pressure Location Lt brachial Position Sitting Pulse 51 Pulse Source Pulse Oximeter Pulse Oximetry (%) 98 Oxygen Delivery Method Room Air Intake Visit Reasons: Bernarda Edwards 08/10 Allergies Penicillins [PENICILLINS] Allergy (Intermediate, Verified 08/17/24 11:19) RASH halothane [HALOTHANE] Adverse Reaction (Intermediate, Verified 08/17/24 11:19) ELEVATED LIVER ENZYMES Medication List - Last Reconciled 08/17/24 by Prisiclla English PA-C apixaban (Eliquis DVT-PE Treat 30D Start) take 2 tabs twice daily for 7 days (13 more doses), then after that take 1 tab once daily fluticasone propion-salmeterol 100-50 mcg/dose 1 ea PO BID lisinopril 20 mg PO DAILY montelukast 10 mg PO DAILY Tobacco use date assessed: 08/17/24 Fall risk assessment: No Falls in past year Last assessed Fall Risk: 08/17/24 Dental Screening Dental Screen Date: 08/17/24 Did you have a dental visit in the last 12 months?: Yes Did you have a dental problem in the last 6 months where you did not have access to dental care?: No Was dental information given to patient?: Patient has dentist HPI Bernarda Edwards 08/10 HPI Details 84-year-old female with past medical his tory of left-sided DVT on anticoagulation last seen by Dr. Delarosa coming in for discharge follow up. In r landon of the notes, patient was seen in [facility] 06/2024 after a fall found to have intraventricular hemorrhage recommended Kcentra by [facility] trauma and transferred to [facility]. While at [facility] patient was admitted to surgery for further observation. Patient presents today with her daughter states she was discharged from [facility] by [facility] where she had an uneventful stay she was recommended by Neurology to restart the Eliquis and follow up outpatient. She does complain of bilateral knee pain is looking for physical therapy in home as she does not drive. She also complaining of left lower extremity swelling and redness. [facility] Medical History Hypertension COPD (chronic obstructive pulmonary disease) Allergic rhinitis Surgical History No history of previous surgery Family History Mother No problems noted. Father No problems noted. Social History Household Members: Children Housing: House Do you presently have visiting nurse or other home services: No Alcohol intake: never Patient Tobacco Use Status: Never used Tobacco Tobacco use type: Cigarette e-Cigarette/Vaping Use: Never Used Second Hand Smoke Exposure: No service: No Current occupational status: retired Cognitive needs: Yes (Walker, cane) Hearing needs: No Vision needs: Yes (reading glasses) Questionnaire PHQ-9 Over the last 2 weeks, how often have you been bothered by any of the following problems? 1. Little interest or pleasure in doing things: not at all 2. Feeling down, depressed, or hopeless: not at all 3. Trouble falling or staying asleep, or sleeping too much: not at all 4. Feeling tired or having little energy: not at all 5. Poor appetite or overeating: not at all 6. Feeling bad about yourself - or that you are a failure or have let yourself or your family down: not at all 7. Trouble concentrating on things, such as reading the newspaper or watching television: not at all 8. Moving or speaking so slowly that other people could have noticed. Or the opposite - being so fidgety or restless that you have been moving around a lot more than usual: not at all 9. Thoughts that you would be better off or of hurting yourself in some way: not at all Total score: 0 Depression Screening Interpretation: Negative Depression Screening Done: Yes Source: Developed by Drs. Boston Morris, Kayla Levi, Jonah Matthews and colleagues, with an educational camacho from [employer]. Thrive Questionnaire Date Thrive assessed: 08/17/24 I am a: Patient What is your living situation today?: I have a steady place to live Within the past 12 months, did the food you bought not last and you didn't have the money to get more?: Never true Within the past 12 months, did you worry whether your food would run out before you got money to buy more?: Never true Do you have trouble paying for medicines?: No Do you have trouble getting transportation to medical appointments?: No Do you have trouble paying your heating and electricity bill?: No Do you have trouble taking care of your child, family member or friend?: No Do you have trouble with day-to-day activities such as bathing, preparing meals, shopping, managing finances, etc.?: No Are you currently unemployed and looking for a job?: No Are you interested in more education?: No Currently or been in a relationship where the following occur: No concerns reported THRIVE Score: 0 AUDIT C Alcohol Use Questionnaire (AUDIT-C) 1. How often do you have a drink containing alcohol?: Never Total Score: 0 SALVADOR-7 AMB Questionnaire SALVADOR-7 Date SALVADOR - 7 assessed: 08/17/24 Feeling nervous, anxious, or on edge: 0 = Not at all Not being able to stop or control worryin = Not at all Worrying too much about different things: 0 = Not at all Trouble relaxin = Not at all Being so restless that it is hard to sit still: 0 = Not at all Becoming easily annoyed or irritable: 0 = Not at all Feeling afraid as if something awful might happen: 0 = Not at all Total SALVADOR-7 score (0-4 normal; 5-9 mild; 10-14 moderate; 15-21 severe): 0 Source: Developed by Drs. Boston Morris, Kayla Levi, Jonah Matthews and colleagues, with an educational camacho from [employer]. Review of Systems Const Denies body aches, Denies chills, Denies fever(s), Denies headache(s) and Denies poor appetite Eyes Reports no additional complaints ENT Denies dizziness and Denies headache(s) Card Denies chest pain, Denies lightheadedness and Denies dyspnea Resp Denies cough and Denies dyspnea Reports no additional complaints Musc Reports no additional complaints and Reports abnormal gait Skin/Breast Reports as per HPI Neuro Reports abnormal gait, Denies dizziness and Denies headache(s) Psych Reports no additional complaints Physical exam (Primary Care) Vital Signs: Last Vital Signs Pulse 51 08/17/24 11:19 BP 120/68 08/17/24 11:19 Pulse Ox 98 08/17/24 11:19 Oxygen Delivery Method Room Air 08/17/24 11:19 Tobacco/Smoking Status: Tobacco use Status Tobacco use date assessed 08/17/24 08/17/24 11:28 Patient Tobacco Use Status Never used Tobacco 08/17/24 11:28 Tobacco use type Cigarette 08/17/24 11:28 e-Cigarette/Vaping Use Never Used 08/17/24 11:28 PHQ-9: PHQ-9 Score PHQ-9: Total score 0 08/17/24 11:37 Depression Screening Interpretation: Negative Thrive Assessment: Date of Thrive Assessment Date Thrive assessed 08/17/24 08/17/24 11:28 Currently or been in a relationship where the following occur: No concerns r eported Const General: cooperative, healthy appearing, comfortable and no acute distress Orientation/consciousness: patient oriented x3 HENMT Head: Yes normocephalic Ears: hearing grossly normal bilaterally General nose exam: Normal external nose present Eyes General: appearance normal, both eyes and all related structures Conjunctivae: conjunctivae normal Neck Neck: Yes full ROM and Yes no lymphadenopathy Resp Effort & Inspection: normal respiratory effort Auscultation: clear to auscultation bilaterally, no crackles, no rales, no rhonchi and no wheezes Cardio Rate: regular rate Rhythm: regular rhythm Skin General skin exam: no rashes or lesions noted Neuro General: patient oriented x3 Gait exam (Neuro): Normal gait present Extrem Other: Left lower extremity erythematous, tender to palpation, 2+ pitting edema with open sores weeping clear/yellow fluid. Decreased pulses in left lower extremity. Right lower extremity normal General: Yes normal to inspection, Yes full ROM and No edema Psych Affect: normal affect Attitude: cooperative Insight: Good insight present (Psych) Judgement: Good judgement present (Psych) Coding Level of Care Code Est Pt Level 4 (33583) Diagnoses Cellulitis of left leg L03.116 Acute deep vein thrombosis (DVT) of femoral vein of left lower extremity I82.412 Affected thrombotic vein of extremity: femoral Assessment & Plan Assessment & Plan (1) Cellulitis of left leg: Code(s): L03.116 - Cellulitis of left lower limb Category: Medical Plan: On exam today patient having left lower extremity 2+ pitting edema, erythema and open lesions that are weeping. Tenderness to palpation and decreased pulses in the left lower extremity. When removing patient's sock saturated in yellowish fluid. Patient was evaluated by myself and Dr. De Luna recommending IV antibiotics and patient was sent to ED for further evaluation. At this time outpatient antibiotics are not appropriate as the infection has been present for many days and worsening and patient has poor follow up. Strongly advised evaluation from the ED and likely IV antibiotics. Patient and patient's daughter agree. Attempted to call report over to the ED but was unable to reach a provider. (2) Acute deep vein thrombosis of left lower extremity: Code(s): I82.402 - Acute embolism and thrombosis of unspecified deep veins of left lower extremity Category: Medical Qualifiers: Affected thrombotic vein of extremity: femoral Qualified Code(s): I82.412 - Acute embolism and thrombosis of left femoral vein Plan: Recommend patient follow up with export manager and vascular surgery as she missed both of these appointments. Plan This note was constructed using voice recognition software. While every effort has been made to ensure accuracy and menhaden vessel pilot, still areas may have been included sometimes these areas may affect the content or meeting of the given symptoms. Total time spent caring for the patient today was 20 minutes. This includes time spent before the visit reviewing the chart, time spent during the visit, and time spent after the visit and documentation.
[2024-08-17 11:19] VITALS: BP 120/68; PULSE 51; O2SAT 98
== END 2024-08-17 12:12 | disposition home or self-care (01) ==
PROVIDERS: PCP Internal Medicine
DX: L03.116 Cellulitis of left lower limb (principal); I82.412 Acute embolism and thrombosis of left femoral vein

== ENCOUNTER 2024-08-17 12:07 | Inpatient (IN) | payer MEDICARE, SELFPAY ==
--- NOTE | ~2024-08-17 | US_ITS ---
EXAMINATION: US TRIPLEX LOWER EXTREMITY, LEFT CLINICAL INFORMATION: Left lower extremity pain COMPARISON: Venous Doppler dated April 12, 2024 demonstrated positive DVT. TECHNIQUE: Color-flow triplex imaging with spectral analysis and compression Doppler were performed on the left lower extremity. FINDINGS: The interrogated vessels included left common femoral vein, greater saphenous vein, superficial femoral vein, profunda, popliteal and posterior tibialis vein demonstrated intraluminal isoechoic abnormality extending from the left femoral vein to the left popliteal vein with partial augmentation and compressibility. There is no Cantu's cyst. US/US venous duplex LE LT IMPRESSION: Probable old nonocclusive thrombus from the left femoral vein to the left posterior tibial vein. Electronically signed by: Carlos Moore MD 08/17/2024 02:10 PM [facility]
[2024-08-17 13:14] VITALS: BP 148/62; PULSE 62; RESP 16; TEMP 37.6; BMI 21.3
--- NOTE | 2024-08-17 13:15 | ED.GENADULT ---
HPI - General Adult General Chief complaint: General Medical Stated complaint: Leg infection Time Seen by Provider: 08/17/24 19:58 Source: patient Mode of arrival: ambulatory Limitations: no limitations History of Present Illness ED Provider: HPI narrative: Patient comes here for increased redness of left lower extremity for last several patient is just released from rehab 1 week of had a remote injury about 7 weeks ago with open wound comes here as a redness as getting worse now no fever no chills Related Data Home Medications ?Medication ?Instructions ?Recorded ?Confirmed apixaban 5 mg tablet (Eliquis) 5 mg PO DAILY 08/17/24 08/17/24 montelukast 10 mg tablet 10 mg PO DAILY PRN allergies 08/17/24 08/17/24 Previous Rx's ?Medication ?Instructions ?Recorded lisinopril 20 mg tablet 20 mg PO DAILY #90 tabs 02/28/23 Allergies Allergy/AdvReac Type Severity Reaction Status Date / Time Penicillins [PENICILLINS] Allergy Intermediate RASH Verified 08/17/24 13:19 halothane [HALOTHANE] AdvReac Intermediate ELEVATED Verified 08/17/24 13:19 LIVER ENZYMES Review of Systems Review of Systems: Yes all other systems are reviewed and are negative [facility] Past Medical History Medical History Hypertension COPD (chronic obstructive pulmonary disease) Allergic rhinitis Surgical History No history of previous surgery Family History Family History Mother No problems noted. Father No problems noted. Social History Social History Household Members: Children Housing: House Do you presently have visiting nurse or other home services: No Alcohol intake: never Patient Tobacco Use Status: Never used Tobacco Tobacco use type: Cigarette Smoked in Last 30 Days: No e-Cigarette/Vaping Use: Never Used Second Hand Smoke Exposure: No Use of substances other than those prescribed or required for medical reasons: No Advance Directives: No Advance Directives Information Provided: No service: No Current occupational status: retired Cognitive needs: Yes (Walker, cane) Hearing needs: No Vision needs: Yes (reading glasses) Physical Exam ED Vital Signs: Vital Signs - 24 hr 08/17/24 13:14 08/17/24 20:35 Temperature 99.6 F 97.6 F Pulse Rate 62 52 Respiratory Rate 16 14 Blood Pressure 148/62 H 137/60 Pulse Oximetry 96 Oxygen Delivery Method Room Air BMI result Body Mass Index 21.3 Appearance: Alert. Oriented X3. No acute distress. Eyes: No pallor or icterus ENT: Pharynx normal. Oral Mucosa moist Neck: Normal inspection. Neck supple. CVS: Normal heart rate and rhythm. Pulses normal. Respiratory: No respiratory distress. Equal air entry bilateral, no wheezing/rales/rhonchi Abdomen: Soft and nontender. Bowel sounds are present, no mass palpable, no CVA tenderness Skin: Skin warm and dry. Cellulitic changes left lower extremity with healing neurovascular intact Extremities: No lower extremity edema. No calf tenderness Neuro: Oriented X 3. No motor deficit. Course Course Course Narrative: RME, this is a rapid medical exam performed by Jimmy Caal please refer to primary provider for complete H&P- 84 year old female, had a DVT in her L leg, reporting erythema and edema of the L leg 3 months ago. Reports she had surgery. Currently with erythema, edema, warmth, and skin breakdown from the L calf all the way down the foot. Reports a fall 7 weeks ago and has been in a rehab center since. Plan for labs, blood cultures, and doppler US of left lower extremity Medications Administered Generic Name Dose Route Start Last Admin Trade Name Freq PRN Reason Stop Dose Admin Sodium Chloride 3 ml 08/18/24 00:00 08/17/24 23:34 0.9 % Sodium Chloride Flush 3 Ml Syringe IVFLUSH 3 ml QSHIFT JHONNY Administration Discontinued Medications Generic Name Dose Route Start Last Admin Trade Name Freq PRN Reason Stop Dose Admin Vancomycin HCl 1,000 mg/ 270 mls @ 270 mls/hr 08/17/24 20:14 08/17/24 21:45 Sodium Chloride IV 08/17/24 21:13 Infused ONCE ONE Infusion Medical Decision Making Medical Decision Making [facility] Narrative: Patient has significant cellulitis of the left lower extremity will admit patient for IV antibiotics Differential Diagnosis Differential Diagnoses: The differential diagnosis associated with the presentation includes Cellulitis/chronic dermatitis/ Admission/Observation Consideration of admission/observation: Escalation of care including admission/observation considered Consult Healthcare Provider Management of the patient was discussed with: Hospitalist Lab Data [facility] Lab Attestation statement: I reviewed the patient's lab results. 08/17/24 16:21 08/17/24 16:21 Labs: Lab Results 08/17/24 Range/Units 16:21 WBC 6.5 (4.8-10.8) X10*3/uL RBC 4.40 (4.20-5.50) X10*6/uL Hgb 13.5 (12.0-16.0) g/dl Hct 41.2 (37.0-47.0) % MCV 93.6 (80.0-98.0) fL MCH 30.7 (27.0-33.0) pg MCHC 32.8 (31.0-35.0) g/dl RDW 13.4 (11.0-16.0) % Plt Count 365 (160-400) X10*3/uL MPV 9.8 (9.4-12.3) fL Immature Gran % (Auto) 0.6 H (0.0-0.4) % Neut % (Auto) 69.3 (45-73) % Lymph % (Auto) 21.8 (20-40) % [place] % (Auto) 5.7 (2-11) % Eos % (Auto) 2.3 (0-4) % Baso % (Auto) 0.3 (0-2) % Lymph # (Auto) 1.4 (1.2-4.9) X10*3/uL [place] # (Auto) 0.4 (0.1-1.2) X10*3/uL Eos # (Auto) 0.2 (0.0-0.4) X10*3/uL Baso # (Auto) 0.0 (0.0-0.2) X10*3/uL Abs Immat Gran (auto) 0.04 H (0.00-0.03) X10*3/uL Absolute Neuts (auto) 4.5 (2.0-8.3) x10*3/uL Absolute Nucleated RBC 0.000 (0.0-0.012) X10*3/uL Nucleated RBC % (auto) 0.0 (0.0-0.2) /100WBC ESR 42 H (0-20) MM/HR PT 14.9 H (10.9-12.4) SEC INR 1.3 H (0.9-1.1) Sodium 144 (135-145) mmol/L Potassium 3.5 (3.3-5.1) mmol/L Chloride 110 H (96-108) mmol/L Carbon Dioxide 27 (22-29) mmol/L Anion Gap 11 L (12-20) BUN 10 (9-16) mg/dL Creatinine 0.72 (0.5-1.4) mg/dL Estim Creat Clear Calc 50.2 Estimated GFR > 60 Random Glucose 87 (60-115) mg/dL Lactic Acid 0.9 (0.5-2.0) mmol/L Calcium 9.0 (8.4-10.2) mg/dL Total Bilirubin 0.5 (0.0-1.0) mg/dL AST 28 (5-31) U/L ALT 20 (0-31) U/L Alkaline Phosphatase 89 (39-117) U/L C-Reactive Protein 0.76 H (< or = 0.50) mg/dL Total Protein 7.4 (6.5-8.0) g/dL Albumin 3.9 (3.5-5.0) g/dL Lipase 20 (8-78) U/L Discharge Plan Discharge Clinical Impression: Cellulitis of left leg Patient Disposition: Admitted As Inpatient
[2024-08-17 16:29] LABS: MANUAL DIFF FLAG NO
[2024-08-17 16:38] LABS: Basophils Percent Auto 0.3 % (0-2); Eosinophils Absolute Auto 0.2 X10*3/uL (0.0-0.4); Eosinophils Percent Auto 2.3 % (0-4); Hematocrit 41.2 % (37.0-47.0); Hemoglobin 13.5 g/dl (12.0-16.0); Imm Gran Abs Auto 0.04 X10*3/uL (0.00-0.03); Imm Gran Pct Auto 0.6 % (0.0-0.4); Lymphocytes Absolute Auto 1.4 X10*3/uL (1.2-4.9); Lymphocytes Percent Auto 21.8 % (20-40); Mean Corpuscular HGB Conc 32.8 g/dl (31.0-35.0); Mean Corpuscular Hemoglobin 30.7 pg (27.0-33.0); Mean Corpuscular Volume 93.6 fL (80.0-98.0); Mean Platelet Volume 9.8 fL (9.4-12.3); Monocytes Absolute Auto 0.4 X10*3/uL (0.1-1.2); Monocytes Percent Auto 5.7 % (2-11); Neutrophils Absolute Auto 4.5 x10*3/uL (2.0-8.3); Neutrophils Percent Auto 69.3 % (45-73); Platelet Count 365 X10*3/uL (160-400); Red Cell Distribution Width 13.4 % (11.0-16.0); White Blood Count 6.5 X10*3/uL (4.8-10.8)
[2024-08-17 16:44] LABS: INTERNATIONAL NORM RATIO 1.3 (0.9-1.1); Prothrombin Time 14.9 SEC (10.9-12.4)
[2024-08-17 16:45] LABS: Lactic Acid 0.9 mmol/L (0.5-2.0)
[2024-08-17 16:47] LABS: Alanine Aminotransferase 20 U/L (0-31); Albumin Level 3.9 g/dL (3.5-5.0); Alkaline Phosphatase 89 U/L (39-117); Anion Gap 11 (12-20); Aspartate Amino Transferase 28 U/L (5-31); Bilirubin Total 0.5 mg/dL (0.0-1.0); Blood Urea Nitrogen 10 mg/dL (9-16); C Reactive Protein 0.76 mg/dL (< or = 0.50); Carbon Dioxide 27 mmol/L (22-29); Chloride 110 mmol/L (96-108); Creatinine Clr Calc Pharmacy 50.2; Estimated Glomerular Filt Rate > 60; Glucose Random 87 mg/dL (60-115); Lipase 20 U/L (8-78); Potassium 3.5 mmol/L (3.3-5.1); Sodium 144 mmol/L (135-145); Total Protein 7.4 g/dL (6.5-8.0)
[2024-08-17 17:50] LABS: Erythrocyte Sedimentation Rate 42 MM/HR (0-20)
--- NOTE | 2024-08-17 19:42 | PC.NURSE ---
Pt a&ox3, no signs of distress. Pt denies pain at this time Pt c/o left leg swelling/redness. Per pt was dx with cellulitis of the leg prior and placed on abx but leg remains the same. Pts son at bedside. Plan of care ongoing.
[2024-08-17 20:35] VITALS: BP 137/60; PULSE 52; RESP 14; TEMP 36.4; O2SAT 96
[2024-08-17] MEDS: vancomycin HCL 1,000 MG in 0.9 % Sodium Chloride 250 ML 270 MG IV (20:43)
--- NOTE | 2024-08-17 20:46 | PC.NURSE ---
Pt medicated per sep. Pt family at bedside Plan of care ongoing.
--- NOTE | 2024-08-17 21:53 | PHA.MEDREC ---
Addendum entered by Georgina Wilde [facility] 08/17/24 22:05: REVIEWED, patient is on eliquis ONCE DAILY as prescribed by provider. Original Note: Pharmacy Consult ? Medication Reconciliation Pharmacy has completed the medication reconciliation. Spoke with patient and she was able to confirm her medications. He confirmed she is taking the Eliquis 5mg tab and confirmed she is taking 1 tablet once a day. She confirmed she is taking the Lisinopril 20mg tab once daily and Montelukast 10mg tab once daily as needed for allergies. She confirmed she took the Eliquis 5mg tab this morning and she thinks she maybe took the Lisionpril 10mg tab yesterday but is not 100% sure.
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
[2024-08-17] MEDS: 0.9 % Sodium Chloride Flush 3 ML SYRINGE IVFLUSH (23:34)
--- NOTE | 2024-08-18 02:25 | PC.NURSE ---
patient trying to climb out of bed, confused as to where she was. I am trying to go upstairs to get clothes. Redirected patient to stay in bed at this time and that she was in the hospital. Patient redirectable/
[2024-08-18] MEDS: Melatonin 3 MG TABLET 6 MG PO (02:53)
[2024-08-18 06:20] VITALS: BP 147/68; PULSE 52; RESP 16; TEMP 36.2; O2SAT 97
[2024-08-18 06:30] LABS: MANUAL DIFF FLAG NO
[2024-08-18 06:32] LABS: Basophils Percent Auto 0.6 % (0-2); Eosinophils Absolute Auto 0.3 X10*3/uL (0.0-0.4); Eosinophils Percent Auto 5.9 % (0-4); Hematocrit 35.7 % (37.0-47.0); Hemoglobin 11.7 g/dl (12.0-16.0); Imm Gran Abs Auto 0.06 X10*3/uL (0.00-0.03); Imm Gran Pct Auto 1.1 % (0.0-0.4); Lymphocytes Absolute Auto 1.5 X10*3/uL (1.2-4.9); Lymphocytes Percent Auto 28.2 % (20-40); Mean Corpuscular HGB Conc 32.8 g/dl (31.0-35.0); Mean Corpuscular Hemoglobin 30.3 pg (27.0-33.0); Mean Corpuscular Volume 92.5 fL (80.0-98.0); Mean Platelet Volume 9.7 fL (9.4-12.3); Monocytes Absolute Auto 0.5 X10*3/uL (0.1-1.2); Monocytes Percent Auto 8.8 % (2-11); Neutrophils Absolute Auto 2.9 x10*3/uL (2.0-8.3); Neutrophils Percent Auto 55.4 % (45-73); Platelet Count 287 X10*3/uL (160-400); Red Blood Count 3.86 X10*6/uL (4.20-5.50); Red Cell Distribution Width 13.4 % (11.0-16.0); White Blood Count 5.2 X10*3/uL (4.8-10.8)
[2024-08-18 06:47] LABS: Anion Gap 9 (12-20); Blood Urea Nitrogen 10 mg/dL (9-16); Calcium 8.3 mg/dL (8.4-10.2); Carbon Dioxide 23 mmol/L (22-29); Chloride 115 mmol/L (96-108); Creatinine Clr Calc Pharmacy 52.4; Estimated Glomerular Filt Rate > 60; Glucose Random 87 mg/dL (60-115); Potassium 3.3 mmol/L (3.3-5.1); Sodium 144 mmol/L (135-145)
--- NOTE | 2024-08-18 08:09 | P.PNIM_ITS ---
Subjective Subjective Date of Service: 08/18/24 Interval History: Being followed for left lower extremity cellulitis. Patient awake alert offers no acute complaints of fever, no chills, no nausea, no vomiting complaining of mild left discomfort in itching. No acute events overnight. Review of Systems All other system reviewed and are negative. Physical Exam 2 Vital Signs: Vital Signs: Last Vital Signs Temp 97.2 F 08/18/24 06:20 Pulse 52 08/18/24 06:20 Resp 16 08/18/24 06:20 BP 147/68 H 08/18/24 06:20 Pulse Ox 97 08/18/24 06:20 O2 Del Method Room Air 08/18/24 06:20 BMI result Body Mass Index 21.3 Const: Other: General resting comfortably in no acute distress. Anicteric sclera Neck no JVD. CVS regular rate rhythm, Respiratory lungs clear to auscultation, no respiratory distress Gastrointestinal abdomen soft, non tender, bowel sounds audible. Extremities right lower no edema, left lower extremity significant erythema extending from dorsum of foot extending to just below left knee (see picture in history and physical) Neuro non focal Psych appropriate affect. Objective Data Active Medications Acetaminophen (Acetaminophen 325 Mg Tablet) 650 mg PO Q6H PRN PRN Reason: Pain, Mild 1-3,fever,headache Apixaban (Apixaban 5 Mg Tablet) 5 mg PO DAILY [facility]NY Calcium Carbonate (Calcium Carbonate 750 Mg Tab.Chew) 750 mg PO Q4H PRN PRN Reason: Heartburn Vancomycin HCl 1,250 mg/ (Sodium Chloride) 250 mls @ 166.667 mls/hr IV Q24H [facility]HONNY Lisinopril (Lisinopril 20 Mg Tablet) 20 mg PO DAILY JHONNY; Protocol Magnesium Hydroxide (Milk Of Magnesia 30 Ml Oral.Susp) 30 ml PO DAILY PRN PRN Reason: Constipation Melatonin (Melatonin 3 Mg Tablet) 6 mg PO BEDTIME PRN PRN Reason: Insomnia Last Admin: 08/18/24 02:53 Dose: 6 mg Documented By: AGATA Montelukast Sodium (Montelukast Sodium 10 Mg Tablet) 10 mg PO DAILY PRN PRN Reason: allergies Ondansetron HCl (Ondansetron Hcl 4 Mg/2 Ml Vial) 4 mg IVPUSH Q8H PRN PRN Reason: Nausea and Vomiting Pharmacy Consult (Consult Rx Vancomycin Dosing) 1 each MISCELLANE DAILY PRN PRN Reason: Consult order Sodium Chloride (0.9 % Sodium Chloride Flush 3 Ml Syringe) 3 ml IVFLUSH QSHIFT [facility] Last Admin: 08/17/24 23:34 Dose: 3 ml Documented By: AGATA Labs 08/18/24 06:17 08/18/24 06:17 Labs: Laboratory Results - last 24 hr 08/17/24 08/18/24 16:21 06:17 MCV 93.6 92.5 MCH 30.7 30.3 MCHC 32.8 32.8 RDW 13.4 13.4 Plt Count 365 287 MPV 9.8 9.7 Immature Gran % (Auto) 0.6 H 1.1 H Neut % (Auto) 69.3 55.4 Lymph % (Auto) 21.8 28.2 [place] % (Auto) 5.7 8.8 Eos % (Auto) 2.3 5.9 H Baso % (Auto) 0.3 0.6 Lymph # (Auto) 1.4 1.5 [place] # (Auto) 0.4 0.5 Eos # (Auto) 0.2 0.3 Baso # (Auto) 0.0 0.0 Abs Immat Gran (auto) 0.04 H 0.06 H Absolute Neuts (auto) 4.5 2.9 Absolute Nucleated RBC 0.000 0.000 Nucleated RBC % (auto) 0.0 0.0 ESR 42 H PT 14.9 H INR 1.3 H Anion Gap 11 L 9 L Estim Creat Clear Calc 50.2 52.4 Estimated GFR > 60 > 60 Random Glucose 87 87 Lactic Acid 0.9 Calcium 9.0 8.3 L D Total Bilirubin 0.5 AST 28 ALT 20 Alkaline Phosphatase 89 C-Reactive Protein 0.76 H Total Protein 7.4 Albumin 3.9 Lipase 20 Assessment and Plan (1) Cellulitis of left leg: Status: Acute (2) Acute deep vein thrombosis of left lower extremity: Status: Acute Plan 84-year-old female with a PMH significant for?left lower extremity DVT s/p mechanical venous thrombectomy on 04/13/2024 on Eliquis, 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 Pt will be admitted to the hospital for treatment and further evaluation of left lower extremity cellulitis requiring IV antibiotics. Acute Left lower extremity cellulitis History of recurrent cellulitis and nonhealing wounds for at least the past year No sepsis No fever, tachycardic, tachypnea, or leukocytosis; lactic acid WNL cont iv vancomycin, started 08/17/2024 COPD Not in acute exacerbation Continue monetlukast Ch. left lower extremity DVT Venous duplex ultrasound found showed Probable old nonocclusive thrombus from the left femoral vein to the left posterior tibial vein. Continue Eliquis HTN Continue lisinopril Early unspecified dementia Recent diagnosis Not on home meds Full Code DVT Prophylaxis: On Eliquis Pt will require continued inpatient treatment of?left lower extremity cellulitis. Given the extensiveness and recurrence of cellulitis, on IV antibiotics. Quality Stroke Does the patient have a stroke diagnosis?: No VTE Prior VTE?: Yes VTE Risk Level:: Medical - moderate - high VTE Device Contraindication: Treatment Not Indicated VTE Drug Contraindication: N/A - Med Ordered
[2024-08-18 10:25] VITALS: BP 112/60
[2024-08-18] MEDS: Apixaban 5 MG TABLET PO (10:25)
[2024-08-18] MEDS: 0.9 % Sodium Chloride Flush 3 ML SYRINGE IVFLUSH ×2 (10:26→19:25)
--- NOTE | 2024-08-18 11:32 | PC.NURSE ---
Received call from granddaughter, per patient ok to speak with granddaughter. Family would like social work/case management to consult re: discharge needs.
[2024-08-18 13:31] VITALS: BP 119/59; PULSE 51; RESP 16; TEMP 36.2; O2SAT 97
[2024-08-18 15:58] VITALS: BP 132/63; PULSE 50; RESP 16; TEMP 36.4; O2SAT 93
[2024-08-18] MEDS: vancomycin HCL 1,250 MG in 0.9 % Sodium Chloride 250 ML 166.67 MG IV (19:25)
[2024-08-18 19:37] VITALS: BP 140/72; PULSE 56; RESP 18; TEMP 36.4; O2SAT 92
[2024-08-18 23:23] VITALS: BP 120/56; PULSE 50; RESP 16; TEMP 36.2; O2SAT 96
[2024-08-19 08:00] VITALS: BP 160/74; PULSE 59; RESP 18; TEMP 36.4; O2SAT 94
[2024-08-19 09:33] VITALS: BP 137/65
[2024-08-19] MEDS: lisinopriL 20 MG TABLET PO (09:33)
[2024-08-19] MEDS: Apixaban 5 MG TABLET PO (09:34)
[2024-08-19] MEDS: 0.9 % Sodium Chloride Flush 3 ML SYRINGE IVFLUSH ×2 (09:37→20:20)
--- NOTE | 2024-08-19 10:26 | P.PNIM_ITS ---
Subjective Subjective Date of Service: 08/19/24 Interval History: Being followed for left lower extremity cellulitis, complain of itching left leg, otherwise denies pain Able to answer questions appropriately, has some confusion Review of Systems All other system reviewed and are negative Physical Exam 2 Vital Signs: Vital Signs: Last Vital Signs Temp 97.6 F 08/19/24 08:00 Pulse 59 08/19/24 08:00 Resp 18 08/19/24 08:00 BP 137/65 08/19/24 09:33 Pulse Ox 94 08/19/24 08:00 O2 Del Method Room Air 08/19/24 08:00 BMI result Body Mass Index 21.3 Const: Other: General resting comfortably in no acute distress. Anicteric sclera Neck no JVD. CVS regular rate rhythm, Respiratory lungs clear to auscultation, no respiratory distress Gastrointestinal abdomen soft, non tender, bowel sounds audible. Extremities right lower extremity no edema, left lower extremity erythema improving, extending from dorsum of foot to just below left knee, small open wound mid leg (see picture in history and physical) Neuro non focal Psych appropriate affect. Objective Data Active Medications Acetaminophen (Acetaminophen 325 Mg Tablet) 650 mg PO Q6H PRN PRN Reason: Pain, Mild 1-3,fever,headache Apixaban (Apixaban 5 Mg Tablet) 5 mg PO DAILY [facility] Last Admin: 08/19/24 09:34 Dose: 5 mg Documented By: MARISELA Calcium Carbonate (Calcium Carbonate 750 Mg Tab.Chew) 750 mg PO Q4H PRN PRN Reason: Heartburn Vancomycin HCl 1,250 mg/ (Sodium Chloride) 250 mls @ 166.667 mls/hr IV Q24H [facility] Last Infusion: 08/18/24 21:03 Dose: Infused Documented By: JC Lisinopril (Lisinopril 20 Mg Tablet) 20 mg PO DAILY [facility]; Protocol Last Admin: 08/19/24 09:33 Dose: 20 mg Documented By: MARISELA Magnesium Hydroxide (Milk Of Magnesia 30 Ml Oral.Susp) 30 ml PO DAILY PRN PRN Reason: Constipation Melatonin (Melatonin 3 Mg Tablet) 6 mg PO BEDTIME PRN PRN Reason: Insomnia Last Admin: 08/18/24 02:53 Dose: 6 mg Documented By: AGATA Montelukast Sodium (Montelukast Sodium 10 Mg Tablet) 10 mg PO DAILY PRN PRN Reason: allergies Ondansetron HCl (Ondansetron Hcl 4 Mg/2 Ml Vial) 4 mg IVPUSH Q8H PRN PRN Reason: Nausea and Vomiting Pharmacy Consult (Consult Rx Vancomycin Dosing) 1 each MISCELLANE DAILY PRN PRN Reason: Consult order Sodium Chloride (0.9 % Sodium Chloride Flush 3 Ml Syringe) [facility] Last Admin: 08/19/24 09:37 Dose: 3 ml Documented By: MARISELA Labs 08/18/24 06:17 08/18/24 06:17 Microbiology Microbiology Results: Microbiology 08/17/24 16:21 Blood Culture - Preliminary Blood - Venous No growth after 24 hours. 08/17/24 16:21 Blood Culture - Preliminary Blood - Venous No growth after 24 hours. Assessment and Plan (1) Wound of left lower extremity: Status: Acute (2) Leg ulcer, left: Status: Acute (3) Cellulitis of left leg: Status: Acute Plan 84-year-old female with a PMH significant for?left lower extremity DVT s/p mechanical venous thrombectomy on 04/13/2024 on Eliquis, 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 Pt will be admitted to the hospital for treatment and further evaluation of left lower extremity cellulitis requiring IV antibiotics. Acute Left lower extremity cellulitis History of recurrent cellulitis and nonhealing wounds for at least the past year No sepsis , blood cultures x2 negative times 24 hours cont iv vancomycin, started 08/17/2024, will transition to by mouth antibiotic if blood cultures remains negative COPD Not in acute exacerbation Continue monetlukast Ch. 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 Continue Eliquis HTN Continue lisinopril Early unspecified dementia Recent diagnosis Not on home meds Full Code DVT Prophylaxis: On Eliquis Pt will require continued inpatient treatment of?left lower extremity cellulitis. Given the extensiveness and recurrence of cellulitis, on IV antibiotics. Quality Stroke Does the patient have a stroke diagnosis?: No VTE Prior VTE?: Yes VTE Risk Level:: Medical - moderate - high VTE Device Contraindication: Treatment Not Indicated VTE Drug Contraindication: N/A - Med Ordered
[2024-08-19 15:24] LABS: Creatinine Clr Calc Pharmacy 50.9; Estimated Glomerular Filt Rate > 60
[2024-08-19 16:00] VITALS: BP 123/58; PULSE 56; RESP 16; TEMP 36.4; O2SAT 99
--- NOTE | 2024-08-19 16:39 | MHC.CM.PN ---
CM SPOKE TO PTS SON, ZENA [phone] HE REPORTS THE PT LIVES AT HOME WITH HIM AND HIS GRANDDAUGHTER PT IS INDEPENDENT WITH MOST CARE AND USES A ROLLATOR FOR DME HE SAYS PT HAS A HCP HE THINKS IS ON FILE WITH HER PCP CM CAN CALL TUESDAY TO REQUEST A COPY PCP: [facility]MM DELIVERED PER DISCUSSION, ZENA FEELS PT NEEDS MORE HELP AT HOME REFERRALS MADE TO [facility] PT HAS HAD [facility] IN THE PAST AND THAT WOULD BE THE PREFERRED AGENCY IF VNA INDICATED HE IS ALSO HOPEFUL SHE CAN HAVE A PT EVAL TO DETERMINE IF SHE NEEDS STR, HE REPORTS THE PAIN IN HER LEG MAKES IT DIFFICULT FOR HER TO AMBULATE SHE WAS RECENTLY AT [facility] BY DISPO
[2024-08-19 19:20] LABS: Vancomycin Random 11.7 mcg/mL (15-20)
--- NOTE | 2024-08-19 19:27 | HE.PHANOTE ---
Re: Madi Renal function has improved. Trough returned at 11.7, pt is therapeutic. Dose reduced to 1000mg q24h with predicted auc 450, predicted trough 12.9. Next trough 08/21 @ 1800.
[2024-08-19] MEDS: vancomycin HCL 1,000 MG in 0.9 % Sodium Chloride 250 ML 270 MG IV (20:19)
[2024-08-19] MEDS: Melatonin 3 MG TABLET 6 MG PO (20:24)
[2024-08-19 23:36] VITALS: BP 122/71; PULSE 51; RESP 18; TEMP 36.1; O2SAT 98
[2024-08-20 05:56] LABS: Anion Gap 9 (12-20); Blood Urea Nitrogen 11 mg/dL (9-16); Calcium 8.6 mg/dL (8.4-10.2); Carbon Dioxide 26 mmol/L (22-29); Chloride 113 mmol/L (96-108); Creatinine Clr Calc Pharmacy 49.5; Estimated Glomerular Filt Rate > 60; Glucose Random 89 mg/dL (60-115); Potassium 3.8 mmol/L (3.3-5.1); Sodium 144 mmol/L (135-145)
[2024-08-20 08:00] VITALS: BP 134/62; PULSE 50; RESP 16; TEMP 36.8; O2SAT 97
[2024-08-20] MEDS: 0.9 % Sodium Chloride Flush 3 ML SYRINGE IVFLUSH ×3 (09:06→19:45)
[2024-08-20] MEDS: Apixaban 5 MG TABLET PO (09:07)
[2024-08-20] MEDS: lisinopriL 20 MG TABLET PO (09:07)
--- NOTE | 2024-08-20 15:09 | P.PNIM_ITS ---
Subjective Subjective Date of Service: 08/20/24 Interval History: Being followed for left lower extremity cellulitis, offers no acute complaints feels better no fever no chills wishes to be discharged home. No acute events overnight. Review of Systems All other system reviewed and are negative Physical Exam 2 Vital Signs: Vital Signs: Last Vital Signs Temp 98.2 F 08/20/24 08:00 Pulse 50 08/20/24 08:00 Resp 16 08/20/24 08:00 BP 134/62 08/20/24 08:00 Pulse Ox 97 08/20/24 08:00 O2 Del Method Room Air 08/20/24 08:00 BMI result Body Mass Index 21.3 Const: Other: General resting comfortably in no acute distress. Anicteric sclera Neck no JVD. CVS regular rate rhythm, Respiratory lungs clear to auscultation, no respiratory distress Gastrointestinal abdomen soft, non tender, bowel sounds audible. Extremities right lower extremity no edema, left lower extremity erythema improving, extending from dorsum of foot to just below left knee, small open wound mid leg (see picture in history and physical) Neuro non focal Psych appropriate affect. Objective Data Active Medications Acetaminophen (Acetaminophen 325 Mg Tablet) 650 mg PO Q6H PRN PRN Reason: Pain, Mild 1-3,fever,headache Apixaban (Apixaban 5 Mg Tablet) 5 mg PO DAILY [facility] Last Admin: 08/20/24 09:07 Dose: 5 mg Documented By: KEERTHI Calcium Carbonate (Calcium Carbonate 750 Mg Tab.Chew) 750 mg PO Q4H PRN PRN Reason: Heartburn Vancomycin HCl 1,000 mg/ (Sodium Chloride) 270 mls @ 270 mls/hr IV Q24H [facility] Last Infusion: 08/19/24 23:06 Dose: Infused Documented By: URI Lisinopril (Lisinopril 20 Mg Tablet) 20 mg PO DAILY [facility]; Protocol Last Admin: 08/20/24 09:07 Dose: 20 mg Documented By: KEERTHI Magnesium Hydroxide (Milk Of Magnesia 30 Ml Oral.Susp) 30 ml PO DAILY PRN PRN Reason: Constipation Melatonin (Melatonin 3 Mg Tablet) 6 mg PO BEDTIME PRN PRN Reason: Insomnia Last Admin: 08/19/24 20:24 Dose: 6 mg Documented By: URI Montelukast Sodium (Montelukast Sodium 10 Mg Tablet) 10 mg PO DAILY PRN PRN Reason: allergies Ondansetron HCl (Ondansetron Hcl 4 Mg/2 Ml Vial) 4 mg IVPUSH Q8H PRN PRN Reason: Nausea and Vomiting Pharmacy Consult (Consult Rx Vancomycin Dosing) 1 each MISCELLANE DAILY PRN PRN Reason: Consult order Sodium Chloride (0.9 % Sodium Chloride Flush 3 Ml Syringe) 3 ml IVFLUSH QSHIFT [facility] Last Admin: 08/20/24 09:06 Dose: 3 ml Documented By: KEERTHI Labs 08/18/24 06:17 08/20/24 05:25 Labs: Laboratory Results - last 24 hr 08/19/24 08/19/24 08/20/24 14:54 17:58 05:25 Hold Purple Top SEE NOTE Anion Gap 9 L Estim Creat Clear Calc 50.9 49.5 Estimated GFR > 60 > 60 Random Glucose 89 Calcium 8.6 Random Vancomycin 11.7 L Microbiology Microbiology Results: Microbiology 08/17/24 16:21 Blood Culture - Preliminary Blood - Venous No growth after 48 hours. 08/17/24 16:21 Blood Culture - Preliminary Blood - Venous No growth after 48 hours. 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 Pt will be admitted to the hospital for treatment and further evaluation of left lower extremity cellulitis requiring IV antibiotics. Acute Left lower extremity cellulitis History of recurrent cellulitis and nonhealing wounds for at least the past year No sepsis , blood cultures x2 negative times 48hours cont iv vancomycin, started 08/17/2024, will transition to by mouth antibiotic in next 24 hours Wound consult pending PT recommend short-term rehab COPD Not in acute exacerbation Continue monetlukast Ch. 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 Continue Eliquis HTN Continue lisinopril Early unspecified dementia Recent diagnosis Not on home meds Full Code DVT Prophylaxis: On Eliquis Pt will require continued inpatient treatment of?left lower extremity cellulitis. Given the extensiveness and recurrence of cellulitis, on IV antibiotics. Quality Stroke Does the patient have a stroke diagnosis?: No VTE Prior VTE?: Yes VTE Risk Level:: Medical - moderate - high VTE Device Contraindication: Treatment Not Indicated VTE Drug Contraindication: N/A - Med Ordered
[2024-08-20 15:25] VITALS: BP 141/65; PULSE 70; RESP 18; TEMP 36.4; O2SAT 96
--- NOTE | 2024-08-20 15:48 | MHC.CM.PN ---
Per MD rounds patient not medically cleared for dc. Likely tomorrow. PT recommending [facility]. CM discussed with patient and son, Syed, at bedside. Patient reports she was d/c'd from [facility] approx 1 wk ago. Does not wish to return to [facility]. DCP: Home w/ family and resumption of [facility]ound care, add PT. [facility] referral to assess for [employer] services, per son request. Patient also considering paying her granddaughter to provide services. Family transport.
[2024-08-20 19:07] VITALS: BP 166/76; PULSE 58; RESP 18; TEMP 36.6; O2SAT 92
[2024-08-20] MEDS: vancomycin HCL 1,000 MG in 0.9 % Sodium Chloride 250 ML 270 MG IV (19:48)
[2024-08-20 23:34] VITALS: BP 126/59; PULSE 53; RESP 16; TEMP 36.3; O2SAT 98
[2024-08-21 06:22] LABS: Creatinine Clr Calc Pharmacy 50.9; Estimated Glomerular Filt Rate > 60
[2024-08-21 08:00] VITALS: BP 142/73; PULSE 55; RESP 18; TEMP 36.5; O2SAT 94
[2024-08-21] MEDS: lisinopriL 20 MG TABLET PO (08:36)
[2024-08-21] MEDS: Apixaban 5 MG TABLET PO (08:36)
[2024-08-21] MEDS: 0.9 % Sodium Chloride Flush 3 ML SYRINGE IVFLUSH ×3 (08:36→23:44)
--- NOTE | 2024-08-21 11:18 | P.PNIM_ITS ---
Subjective Subjective Date of Service: 08/21/24 Interval History: Being followed for left lower extremity cellulitis Denies left leg pain, no itching complaining of dry skin, wishing to be out of bed and ambulate but has not ambulated in last 2 weeks at home, declining rehab. No acute events overnight Tolerating 50% diet with no nausea, no vomiting, no abdominal pain. Review of Systems All other system reviewed and are negative Physical Exam 2 Vital Signs: Vital Signs: Last Vital Signs Temp 97.7 F 08/21/24 08:00 Pulse 55 08/21/24 08:00 Resp 18 08/21/24 08:00 BP 142/73 H 08/21/24 08:00 Pulse Ox 94 08/21/24 08:00 O2 Del Method Room Air 08/21/24 08:00 BMI result Body Mass Index 21.3 Const: Other: General resting comfortably in no acute distress. Anicteric sclera Neck no JVD. CVS regular rate rhythm, Respiratory lungs clear to auscultation, no respiratory distress Gastrointestinal abdomen soft, non tender, bowel sounds audible. Extremities right lower extremity no edema, left lower extremity persistent erythema, swelling, unchanged from yesterday, extending from dorsum of foot to just below left knee, small open wound mid leg and dry scaly skin (see picture in history and physical) Neuro non focal Psych appropriate affect. Objective Data Active Medications Acetaminophen (Acetaminophen 325 Mg Tablet) 650 mg PO Q6H PRN PRN Reason: Pain, Mild 1-3,fever,headache Apixaban (Apixaban 5 Mg Tablet) 5 mg PO DAILY [facility] Last Admin: 08/21/24 08:36 Dose: 5 mg Documented By: KEERTHI Calcium Carbonate (Calcium Carbonate 750 Mg Tab.Chew) 750 mg PO Q4H PRN PRN Reason: Heartburn Vancomycin HCl 1,000 mg/ (Sodium Chloride) 270 mls @ 270 mls/hr IV Q24H [facility] Last Infusion: 08/20/24 22:29 Dose: Infused Documented By: URI Lisinopril (Lisinopril 20 Mg Tablet) 20 mg PO DAILY [facility]; Protocol Last Admin: 08/21/24 08:36 Dose: 20 mg Documented By: KEERTHI Magnesium Hydroxide (Milk Of Magnesia 30 Ml Oral.Susp) 30 ml PO DAILY PRN PRN Reason: Constipation Melatonin (Melatonin 3 Mg Tablet) 6 mg PO BEDTIME PRN PRN Reason: Insomnia Last Admin: 08/19/24 20:24 Dose: 6 mg Documented By: URI Montelukast Sodium (Montelukast Sodium 10 Mg Tablet) 10 mg PO DAILY PRN PRN Reason: allergies Ondansetron HCl (Ondansetron Hcl 4 Mg/2 Ml Vial) 4 mg IVPUSH Q8H PRN PRN Reason: Nausea and Vomiting Pharmacy Consult (Consult Rx Vancomycin Dosing) 1 each MISCELLANE DAILY PRN PRN Reason: Consult order Sodium Chloride (0.9 % Sodium Chloride Flush 3 Ml Syringe) 3 ml IVFLUSH QSPAFT [facility] Last Admin: 08/21/24 08:36 Dose: 3 ml Documented By: KEERTHI Labs 08/18/24 06:17 08/21/24 05:44 Labs: Laboratory Results - last 24 hr 08/21/24 05:44 Estim Creat Clear Calc 50.9 Estimated GFR > 60 Assessment and Plan (1) Wound of left lower extremity: Status: Acute (2) Leg ulcer, left: Status: Acute (3) Cellulitis of left leg: Status: Acute (4) Acute deep vein thrombosis of left lower extremity: Status: Acute Plan 84-year-old female with a PMH significant for?left lower extremity DVT s/p mechanical venous thrombectomy on 04/13/2024 on Eliquis, 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 Pt will be admitted to the hospital for treatment and further evaluation of left lower extremity cellulitis requiring IV antibiotics. Acute Left lower extremity cellulitis History of recurrent cellulitis and nonhealing wounds for at least the past year No sepsis , blood cultures x2 negative times 48hours cont iv vancomycin, started 08/17/2024, will add Kenalog cream, continue moisturizing cream Stable renal function, vanco random subtherapeutic 11.7 Due to persistent symptoms will consult ID Wound consult pending PT recommend short-term rehab COPD Not in acute exacerbation Continue monetlukast Ch. 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 Continue Eliquis HTN Continue lisinopril Allergic rhinitis on montelukast Early unspecified dementia Recent diagnosis Not on home meds Full Code DVT Prophylaxis: On Eliquis Pt will require continued inpatient treatment of?left lower extremity cellulitis. Given the extensiveness and recurrence of cellulitis, on IV antibiotics. Quality Stroke Does the patient have a stroke diagnosis?: No VTE Prior VTE?: Yes VTE Risk Level:: Medical - moderate - high VTE Device Contraindication: Treatment Not Indicated VTE Drug Contraindication: N/A - Med Ordered
--- NOTE | 2024-08-21 11:30 | PC.NURSE ---
Pt is heavy 2A oob into chair. Pt encouraged not to use purewick and the importance of getting OOB and up to chair and bedside commode. Pt was unsteady and weak with poor balance, with 2A and walker. All safety measures in place, pt currently up to chair.
[2024-08-21] MEDS: Triamcinolone Acet 0.5 % Oint 15 GM TUBE 1 APPL TOPICAL ×2 (12:38→19:58)
--- NOTE | 2024-08-21 13:31 | P.CNID_ITS ---
History of Present Illness Data of Consult Service Date: 08/21/24 Requesting physician: Merlin Tena Primary Care Provider: Boubacar Delarosa MD [facility] Reason for consult: left leg redness She presents supposedly with left leg redness that is acute. However she says her left leg is chronically red and itchy and this sensation starts at toes and her son came to visit her and told her to come in She has no fever or chills. She reports prior scrape/irritation to leg couple weeks ago. She also had surgery she says for clot on leg. She is not sure if she has PAD but has seen vascular. Review of Systems 2 Review of Systems: Yes all other systems are reviewed and are negative [facility] Past Medical History Medical History Hypertension COPD (chronic obstructive pulmonary disease) Allergic rhinitis Family History Family History Mother No problems noted. Father No problems noted. Family history: reviewed and not pertinent Surgical History Surgical History No history of previous surgery Social History Social History Household Members: Children Housing: House Do you presently have visiting nurse or other home services: Yes Alcohol intake: never Patient Tobacco Use Status: Never used Tobacco Tobacco use type: Cigarette e-Cigarette/Vaping Use: Never Used Second Hand Smoke Exposure: No service: No Current occupational status: retired Cognitive needs: Yes (Walker, cane) Hearing needs: No Vision needs: Yes (reading glasses) Meds Allergies Allergy/AdvReac Type Severity Reaction Status Date / Time Penicillins [PENICILLINS] Allergy Intermediate RASH Verified 08/17/24 13:19 halothane [HALOTHANE] AdvReac Intermediate ELEVATED Verified 08/17/24 13:19 LIVER ENZYMES Active Medications: Current Medications Acetaminophen (Acetaminophen 325 Mg Tablet) 650 mg PO Q6H PRN PRN Reason: Pain, Mild 1-3,fever,headache Apixaban (Apixaban 5 Mg Tablet) 5 mg PO DAILY [facility] Last Admin: 08/21/24 08:36 Dose: 5 mg Calcium Carbonate (Calcium Carbonate 750 Mg Tab.Chew) 750 mg PO Q4H PRN PRN Reason: Heartburn Vancomycin HCl 1,000 mg/ (Sodium Chloride) 270 mls @ 270 mls/hr IV Q24H [facility] Last Infusion: 08/20/24 22:29 Dose: Infused Lisinopril (Lisinopril 20 Mg Tablet) 20 mg PO DAILY [facility]; Protocol Last Admin: 08/21/24 08:36 Dose: 20 mg Magnesium Hydroxide (Milk Of Magnesia 30 Ml Oral.Susp) 30 ml PO DAILY PRN PRN Reason: Constipation Melatonin (Melatonin 3 Mg Tablet) 6 mg PO BEDTIME PRN PRN Reason: Insomnia Last Admin: 08/19/24 20:24 Dose: 6 mg Montelukast Sodium (Montelukast Sodium 10 Mg Tablet) 10 mg PO DAILY PRN PRN Reason: allergies Ondansetron HCl (Ondansetron Hcl 4 Mg/2 Ml Vial) 4 mg IVPUSH Q8H PRN PRN Reason: Nausea and Vomiting Pharmacy Consult (Consult Rx Vancomycin Dosing) 1 each MISCELLANE DAILY PRN PRN Reason: Consult order Sodium Chloride (0.9 % Sodium Chloride Flush 3 Ml Syringe) 3 ml IVFLUSH QSHIFT [facility] Last Admin: 08/21/24 08:36 Dose: 3 ml Triamcinolone Acetonide (Triamcinolone Acet 0.5 % Oint 15 Gm Tube) 1 appl TOPICAL BID [facility] Last Admin: 08/21/24 12:38 Dose: 1 appl Home Medications ?Medication ?Instructions ?Recorded ?Confirmed ?Last Taken ?Type apixaban 5 mg tablet (Eliquis) 5 mg PO DAILY 08/17/24 08/17/24 Unknown History montelukast 10 mg tablet 10 mg PO DAILY PRN allergies 08/17/24 08/17/24 Unknown History Physical Exam 2 Vital Signs: Vital Signs: Last Vital Signs Temp 97.7 F 08/21/24 08:00 Pulse 55 08/21/24 08:00 Resp 18 08/21/24 08:00 BP 142/73 H 08/21/24 08:00 Pulse Ox 94 08/21/24 08:00 O2 Del Method Room Air 08/21/24 08:00 BMI result Body Mass Index 21.3 Extrem: Other: cool ,bright red LLE,greasy with detached epidermal layers pulses plus 2 redness interdigitally,patient scratching Results Labs 08/18/24 06:17 08/21/24 05:44 Labs: BMP 08/21/24 05:44 Creatinine 0.71 Microbiology Microbiology Results: Microbiology 08/17/24 16:21 Blood - Venous Blood Culture - Preliminary No growth after 48 hours. 08/17/24 16:21 Blood - Venous Blood Culture - Preliminary No growth after 48 hours. Assessment and Plan (1) Wound of left lower extremity: Status: Acute (2) Cellulitis of left leg: Status: Acute Plan The leg is red and cool and itchy. PAD and fungus as well may be issue rather than cellulitis. Would hold topical steroids if not improving redness within a day. Switch Vancomycin to po Doxycycline for 10 days if not improving in a day and give for 10 days. Topical antifungal to foot,interdigital. Consider Vascular eval ?PAD.
[2024-08-21 15:37] VITALS: BP 124/60; PULSE 61; RESP 16; TEMP 36; O2SAT 95
--- NOTE | 2024-08-21 17:31 | HO.WOUND ---
Wound Consult: Initial 84yr old? female admitted to [facility] on 08/17/24 - See progress notes and H&P for detailed history.? Wound consult placed for Left Lower Leg.? Patient agreeable to assessment and photo documentation.? Chart review reveals patient has had left lower leg redness and dry skin in past admissions. The leg was assessed she has several s/s of arterial disease such as cold to touch, no palpable pulse, weak by Doppler, red purple pigmentation, thickened nails, thin shiny skin and history of vascular intervention. TT to Dr. Tena with concerns and recommend vascular consult. Discussed with direct care nurse at bedside as well. Warm blanket applied after dressing application. Bilateral Legs - note no palpable pulses noted weak by doppler bilateral cold to touch. Left Lower Lateral Leg Etiology: ?Arterial Wound? Measurements: 2cm x 0.8cm x 0.2cm Wound Bed: yellow slough adherent to wound bed Drainage / Odor: Serous drainage noted Edges: ? rolled Linda wound: ? Red cold to touch, no palpable pulses, weak by doppler, No Induration, Fluctuance noted Pain: denies pain and denies neuropathy Goals of Treatment: ? Vascular consult and durafiber to open lateral wound Of note the dorsal side of the foot had a large macerated lifted thickened layer gently removed without incident. unclear if weeping was noted under the layer that lead to the maceration or if cream application led to maceration. Cleansed and skin prep applied and ABD applied for protection and drainage absorption if needed. Recommendations: 1. Turn and Reposition every 2 hours and as needed for patient comfort.? Use pillows or wedges to support off loading positions. 2. Off Load all bony prominences with use of pillows and heel boots if needed.? Apply Preventative foams where needed. ? 3. Monitor for incontinence and moisture control, use barrier creams when needed for prevention and treatment. 4. Provide adequate and supplemental nutrition.? 5. Order low air loss mattress. 6. When applicable maintain blood glucose levels per Providers order. 7. Left Lower Leg - Cleanse with NS moist gauze, pat dry. Apply Topical steroid cream to lower leg per providers orders. Cover lateral open wound with Durafiber AG, Followed by gauze and ABD pad, ABd pad to top of foot followed by gauze wrap. Change Daily. Consider warm blanket periodically to lower legs. Re-consult wound care Nurse for wound deterioration or wound changes.
[2024-08-21 18:27] LABS: Vancomycin Random 13.6 mcg/mL (15-20)
[2024-08-21 19:46] VITALS: BP 124/60; PULSE 59; RESP 18; TEMP 36.3; O2SAT 98
[2024-08-21] MEDS: vancomycin HCL 1,000 MG in 0.9 % Sodium Chloride 250 ML 270 MG IV (19:57)
[2024-08-22 06:09] LABS: Creatinine Clr Calc Pharmacy 46.9; Estimated Glomerular Filt Rate > 60
[2024-08-22 07:56] VITALS: BP 127/63; PULSE 102; RESP 14; TEMP 36.7; O2SAT 93
[2024-08-22] MEDS: 0.9 % Sodium Chloride Flush 3 ML SYRINGE IVFLUSH (09:34)
[2024-08-22] MEDS: Apixaban 5 MG TABLET PO (09:34)
[2024-08-22 09:35] VITALS: BP 165/73
[2024-08-22] MEDS: lisinopriL 20 MG TABLET PO (09:35)
[2024-08-22] MEDS: Triamcinolone Acet 0.5 % Oint 15 GM TUBE 1 APPL TOPICAL (09:38)
--- NOTE | 2024-08-22 11:52 | P.CONGS_ITS ---
<Statement entered by Param Manzo MD - 08/22/24 12:09> I have seen and evaluated the patient and agree with history, findings, assessment and plan documented by Mee Cervantes PA-c. Patient well known to me for prior mechanical venous thrombectomy back in April. She some swelling and a nonhealing ulcer on the lateral aspect of the left leg. In addition to some dermatitis. On our physical exam and dressing change I was able to appreciate a palpable dorsalis pedis pulse. She does have some mild +1 edema just by the mere fact that she had a prior history of a DVT she will have some venous insufficiency. At the current time would recommend local topical wound care. She does have this lateral wound measuring a proximally 2 cm. Happy to see her as an outpatient try to assist with that. Thank you for allowing us to assist in her care. History of Present Illness Consult details Consult date: 08/22/24 Narrative: We were consulted today for Yumiko, a pleasant 84 yo female patient, for nonhealing ulcer of left lower extremity with concurrent cellulitis. She has a medical hx pertinent for a DVT on with a mechanical venous thrombectomy on 04/13/[address] Manzo as well as falls, HTN, COPD, and unspecified dementia. She was recently in rehab s/p fall with an intraventricular hemorrhage. She states she has had these ulcers/redness on her left lower leg for months now. She lives at home with her son and utilizes a walker to ambulate. She denies any pain in her lower left extremity. Review of Systems 2 Constitutional: Constitutional: Reports as per HPI and Denies weakness ENT: Reports Normal hearing present and Denies dizziness Cardiovascular: Cardiovascular: Reports as per HPI, Denies chest pain, Denies chest pain at rest, Denies chest pain with activity, Denies dyspnea and Denies dyspnea on exertion Respiratory: Respiratory: Reports as per HPI, Denies cough, Denies dyspnea and Denies dyspnea on exertion Gastrointestinal: Gastrointestinal: Reports as per HPI, Denies abdominal pain, Denies nausea and Denies vomiting Musculoskeletal: Musculoskeletal: Denies numbness Integumentary/Breasts: Skin/Breast: Reports as per HPI, Denies erythema and Denies wounds Neurologic: Reports Normal hearing present, Denies dizziness, Denies numbness, Denies Sensory deficit (Neuro) and Denies weakness Psychiatric: Psychiatric: Reports no additional psychiatric complaints Endocrine: Endocrine: Reports no additional endocrine complaints [facility] Past Medical History Medical History Hypertension COPD (chronic obstructive pulmonary disease) Allergic rhinitis Family History Family History Mother No problems noted. Father No problems noted. Family history: reviewed and not pertinent Surgical History Surgical History No history of previous surgery Social History Social History Household Members: Children Housing: House Do you presently have visiting nurse or other home services: Yes Alcohol intake: never Patient Tobacco Use Status: Never used Tobacco Tobacco use type: Cigarette e-Cigarette/Vaping Use: Never Used Second Hand Smoke Exposure: No service: No Current occupational status: retired Cognitive needs: Yes (Walker, cane) Hearing needs: No Vision needs: Yes (reading glasses) Meds Allergies Allergy/AdvReac Type Severity Reaction Status Date / Time Penicillins [PENICILLINS] Allergy Intermediate RASH Verified 08/17/24 13:19 halothane [HALOTHANE] AdvReac Intermediate ELEVATED Verified 08/17/24 13:19 LIVER ENZYMES Active Medications: Current Medications Acetaminophen (Acetaminophen 325 Mg Tablet) 650 mg PO Q6H PRN PRN Reason: Pain, Mild 1-3,fever,headache Apixaban (Apixaban 5 Mg Tablet) 5 mg PO DAILY [facility] Last Admin: 08/22/24 09:34 Dose: 5 mg Calcium Carbonate (Calcium Carbonate 750 Mg Tab.Chew) 750 mg PO Q4H PRN PRN Reason: Heartburn Vancomycin HCl 1,000 mg/ (Sodium Chloride) 270 mls @ 270 mls/hr IV Q24H [facility]ONNY Last Infusion: 08/21/24 21:00 Dose: Infused Lisinopril (Lisinopril 20 Mg Tablet) 20 mg PO DAILY [facility]; Protocol Last Admin: 08/22/24 09:35 Dose: 20 mg Magnesium Hydroxide (Milk Of Magnesia 30 Ml Oral.Susp) 30 ml PO DAILY PRN PRN Reason: Constipation Melatonin (Melatonin 3 Mg Tablet) 6 mg PO BEDTIME PRN PRN Reason: Insomnia Last Admin: 08/19/24 20:24 Dose: 6 mg Montelukast Sodium (Montelukast Sodium 10 Mg Tablet) 10 mg PO DAILY PRN PRN Reason: allergies Ondansetron HCl (Ondansetron Hcl 4 Mg/2 Ml Vial) 4 mg IVPUSH Q8H PRN PRN Reason: Nausea and Vomiting Pharmacy Consult (Consult Rx Vancomycin Dosing) 1 each MISCELLANE DAILY PRN PRN Reason: Consult order Sodium Chloride (0.9 % Sodium Chloride Flush 3 Ml Syringe) 3 ml IVFLUSH QSHIFT [facility] Last Admin: 08/22/24 09:34 Dose: 3 ml Triamcinolone Acetonide (Triamcinolone Acet 0.5 % Oint 15 Gm Tube) 1 appl TOPICAL BID [facility] Last Admin: 08/22/24 09:38 Dose: 1 appl Home Medications ?Medication ?Instructions ?Recorded ?Confirmed ?Last Taken ?Type apixaban 5 mg tablet (Eliquis) 5 mg PO DAILY 08/17/24 08/17/24 Unknown History montelukast 10 mg tablet 10 mg PO DAILY PRN allergies 08/17/24 08/17/24 Unknown History Physical Exam 2 Vital Signs: Vital Signs: Last Vital Signs Temp 98.1 F 08/22/24 07:56 Pulse 102 H 08/22/24 07:56 Resp 14 08/22/24 07:56 BP 165/73 H 08/22/24 09:35 Pulse Ox 93 08/22/24 07:56 O2 Del Method Room Air 08/22/24 07:56 BMI result Body Mass Index 21.3 Const: General: comfortable and no acute distress O rientation/consciousness: patient oriented x3 HEENT: Ears: hearing grossly normal bilaterally Resp: Effort & Inspection: normal respiratory effort and able to speak in complete sentences Auscultation: clear to auscultation bilaterally Cardio: Rate: regular rate Rhythm: regular rhythm Heart sounds: S1 normal heart sound present and S2 normal heart sound present Bruits: no abdominal aortic bruits, no carotid bruits, no femoral bruits and no renal bruits GI: Palpation (GI): No Abdominal aortic bruit present Neuro: General: patient oriented x3 Cranial nerves: Yes Normal hearing present Sensory Exam: No Sensory deficit (Neuro) Extrem: Other: Left lower extremity: erythema and dry skin noted from the tibial tuberosity to the tips of the toes. +1 edema noted, non pitting. Small appx 1.5cmx0.5cm ulcer noted on the lateral aspect of the leg, appx mid cordon. No other wounds noted. Palpable DP pulses. Skin is warm to the touch. Results Labs 08/18/24 06:17 08/22/24 05:19 Labs: Abnormal lab results 08/21/24 Range/Units 18:02 Random Vancomycin 13.6 L (15-20) mcg/mL BMP 08/22/24 05:19 Creatinine 0.77 All other labs normal. Assessment and Plan (1) Leg ulcer, left: Qualifiers: Non-pressure ulcer stage: unspecified non-pressure ulcer stage Q ualified Code(s): L97.929 - Non-pressure chronic ulcer of unspecified part of left lower leg with unspecified severity Status: Acute Plan We were consulted for Ymuiko, a pleasant 84yo female pt, for a nonhealing ulcer on her left lower extremity. She is s/p mechanical venous thrombectomy with Dr Manzo on 04/13/24. She continues on Eliquis. We reviewed the venous duplex US performed on 08/17/24, which revealed a probable old nonocclusive thrombosis in the left femoral vein through the posterior tibial vein. There is no acute vascular surgical intervention at this point. We would continue with dressing changes daily as follows: alginate at the small lateral open wound, 4x4, and Kerlix wrap, to be changed daily. We would like to have the patient follow up with us outpatient for further wound care after discharge. Thank you for the consult. If there are any questions or concerns, please do not hesitate to reach out to us. Procedures Date of Service Date of Service: 08/22/24
--- NOTE | 2024-08-22 12:59 | MHC.CM.PN ---
Per MD rounds not medically cleared for dc, awaiting vascular consult. CM spoke w/ son Syed re: dc plan. Patient/family continue to decline STR. Per [facility] liasion, patient will start the following services on dc - MOW, home making and personal care. Will also resume SN via [facility] and add PT.
--- NOTE | 2024-08-22 14:58 | P.PNIM_ITS ---
Subjective Subjective Date of Service: 08/22/24 Interval History: Discussed with nursing staff. No acute issues overnight. Leg pain improved however erythema persistent Review of Systems Denies chest pain Denies shortness of breath Denies nausea vomiting diarrhea Denies fever chills Physical Exam 2 Vital Signs: Vital Signs: Last Vital Signs Temp 98.1 F 08/22/24 07:56 Pulse 102 H 08/22/24 07:56 Resp 14 08/22/24 07:56 BP 165/73 H 08/22/24 09:35 Pulse Ox 93 08/22/24 07:56 O2 Del Method Room Air 08/22/24 07:56 BMI result Body Mass Index 21.3 Const: Other: Awake alert no acute distress Resp: Other: Clear to auscultation bilaterally no rales rhonchi or wheezes Cardio: Other: No S4; positive S1-S2; no S3 murmurs rubs or gallops GI: Other: Soft nontender nondistended normoactive bowel sounds Extrem: Other: Left lower extremity remains erythematous without acute changes Objective Data Active Medications Acetaminophen (Acetaminophen 325 Mg Tablet) 650 mg PO Q6H PRN PRN Reason: Pain, Mild 1-3,fever,headache Apixaban (Apixaban 5 Mg Tablet) 5 mg PO DAILY [facility] Last Admin: 08/22/24 09:34 Dose: 5 mg Documented By: ARLETTE Calcium Carbonate (Calcium Carbonate 750 Mg Tab.Chew) 750 mg PO Q4H PRN PRN Reason: Heartburn Clotrimazole (Clotrimazole 1 % Cream 15 Gm Tube) 1 appl TOPICAL BID [facility]; Protocol Vancomycin HCl 1,000 mg/ (Sodium Chloride) 270 mls @ 270 mls/hr IV Q24H [facility] Last Infusion: 08/21/24 21:00 Dose: Infused Documented By: MAMTA Lisinopril (Lisinopril 20 Mg Tablet) 20 mg PO DAILY [facility]; Protocol Last Admin: 08/22/24 09:35 Dose: 20 mg Documented By: ARLETTE Magnesium Hydroxide (Milk Of Magnesia 30 Ml Oral.Susp) 30 ml PO DAILY PRN PRN Reason: Constipation Melatonin (Melatonin 3 Mg Tablet) 6 mg PO BEDTIME PRN PRN Reason: Insomnia Last Admin: 08/19/24 20:24 Dose: 6 mg Documented By: URI Montelukast Sodium (Montelukast Sodium 10 Mg Tablet) 10 mg PO DAILY PRN PRN Reason: allergies Ondansetron HCl (Ondansetron Hcl 4 Mg/2 Ml Vial) 4 mg IVPUSH Q8H PRN PRN Reason: Nausea and Vomiting Pharmacy Consult (Consult Rx Vancomycin Dosing) 1 each MISCELLANE DAILY PRN PRN Reason: Consult order Sodium Chloride (0.9 % Sodium Chloride Flush 3 Ml Syringe) [facility] Last Admin: 08/22/24 09:34 Dose: 3 ml Documented By: ARLETTE Labs 08/18/24 06:17 08/22/24 05:19 Labs: Laboratory Results - last 24 hr 08/21/24 08/22/24 18:02 05:19 Hold Purple Top SEE NOTE Estim Creat Clear Calc 46.9 Estimated GFR > 60 Random Vancomycin 13.6 L Assessment and Plan (1) Cellulitis of left leg: Status: Acute (2) Hypertension: Status: Acute Plan 84-year-old female with a PMH significant for?left lower extremity DVT s/p mechanical venous thrombectomy on 04/13/2024 on Eliquis, 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 Pt will be admitted to the hospital for treatment and further evaluation of left lower extremity cellulitis requiring IV antibiotics. 1.Acute Left lower extremity cellulitis -as per ID; DC vancomycin in favor of p.o. doxycycline times 10 days -add antifungal cream between toes left foot -PT recommend short-term rehab; patient refusing and wishes to be discharged home with son 2.COPD -stable and well compensated -continue outpatient therapies 3.Chronic left lower extremity DVT -Venous duplex ultrasound showed Probable old nonocclusive thrombus from the left femoral vein to the left posterior tibial vein. -continue Eliquis 4.HTN -acceptable control on current therapies -adjust as indicated Full Code Eliquis Pt will require continued inpatient treatment of?left lower extremity cellulitis. Given the extensiveness and recurrence of cellulitis, on IV antibiotics. Quality Stroke Does the patient have a stroke diagnosis?: No VTE Prior VTE?: Yes VTE Risk Level:: Medical - moderate - high VTE Device Contraindication: Treatment Not Indicated VTE Drug Contraindication: N/A - Med Ordered
[2024-08-22 15:24] VITALS: BP 136/63; PULSE 54; RESP 16; TEMP 37; O2SAT 98
[2024-08-22] MEDS: Doxycycline Monohydrate 100 MG CAPSULE PO (19:18)
[2024-08-22] MEDS: Clotrimazole 1 % Cream 15 GM TUBE 1 APPL TOPICAL (19:39)
[2024-08-22 23:16] VITALS: BP 145/67; PULSE 56; RESP 16; TEMP 36.2; O2SAT 93
[2024-08-23] MEDS: Doxycycline Monohydrate 100 MG CAPSULE PO (05:25)
[2024-08-23 07:16] LABS: Creatinine Clr Calc Pharmacy 48.2; Estimated Glomerular Filt Rate > 60
[2024-08-23 08:00] VITALS: BP 130/60; PULSE 50; RESP 17; TEMP 36.7; O2SAT 97
--- NOTE | 2024-08-23 08:35 | HO.VASCPN ---
Subjective Subjective Date of Service: 08/23/24 Interval history: Yumiko remains stable. She remains in bed this morning, under the blankets, she states she is chilly. She has been sleeping, eating, and drinking well. She denies any pain in her lower leg. She is asking about going home. Physical Exam Vital Signs: Vital Signs: Last Vital Signs Temp 98.1 F 08/23/24 08:00 Pulse 50 08/23/24 08:00 Resp 17 08/23/24 08:00 BP 130/60 08/23/24 08:00 Pulse Ox 97 08/23/24 08:00 O2 Del Method Room Air 08/23/24 08:00 BMI result Body Mass Index 21.3 Const: General: comfortable and no acute distress Orientation/consciousness: patient oriented x3 HEENT: Ears: hearing grossly normal bilaterally Resp: Effort & Inspection: normal respiratory effort and able to speak in complete sentences Auscultation: clear to auscultation bilaterally Cardio: Rate: regular rate Rhythm: regular rhythm Heart sounds: S1 normal heart sound present and S2 normal heart sound present Bruits: no abdominal aortic bruits, no carotid bruits, no femoral bruits and no renal bruits GI: Palpation (GI): No Abdominal aortic bruit present Neuro: General: patient oriented x3 Cranial nerves: Yes CN's II-XII intact bilaterally Extrem: Other: Left lower extremity: bandage intact, no drainage or blood noted on the dressing. Dressing not taken down this morning. Progress Note: A&P Assessment and plan (1) Leg ulcer, left: Status: Acute Assessment and Plan: Yumiko remains stable from a vascular standpoint. We would continue with dressing changes daily in the hospital and every other day if she gets discharged home. We will follow up with her outpatient. Thank you for consult. If there are any questions or concerns, please do not hesitate to reach out to us. Time Spent With Patient Time: Total time managing care of this patient today ____ minutes. Procedures Date of Service Date of Service: 08/23/24 Quality Stroke Does the patient have a stroke diagnosis?: No VTE Prior VTE?: Yes VTE Risk Level:: Medical - moderate - high VTE Device Contraindication: Treatment Not Indicated VTE Drug Contraindication: N/A - Med Ordered
[2024-08-23] MEDS: Clotrimazole 1 % Cream 15 GM TUBE 1 APPL TOPICAL (09:09)
[2024-08-23] MEDS: Apixaban 5 MG TABLET PO (09:09)
[2024-08-23] MEDS: lisinopriL 20 MG TABLET PO (09:09)
[2024-08-23] MEDS: 0.9 % Sodium Chloride Flush 3 ML SYRINGE IVFLUSH (09:09)
--- NOTE | 2024-08-23 12:51 | MHC.CM.PN ---
Per MD rounds patient medically cleared for dc. PT continues to recommend STR, patient requiring 2 assist. CM sent updates and placed phone call to [facility]. They are unable to offer. Rec'd bed offer from [facility]. CM reviewed bed offer w/ son Gene and patient. 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 Son is aware of patient's functional limitations and reports family will be w/ patient 21/02 between son and granddaughter. Patient will look into additional EYE CLINIC MANAGER hours through [facility] or private pay agencies if needed. IMM delivered. Son will transport home at 3pm. RN aware. IMM delivered.
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
--- NOTE | 2024-08-23 12:59 | P.F2F_ITS ---
Service Date Service Date: 08/23/24 Encounter Date of encounter: 08/23/24 Encounter: Acute hospitalization Reasons for Services Signs and symptoms assessed: Progression of resolution of cellulitis left lower extremity Reason for [facility]: medication management, teach disease management and other (Left Lower Leg - Cleanse with NS moist gauze, pat dry. Apply Topical steroid cream to lower leg per providers orders. Cover lateral open wound with Durafiber AG, Followed by gauze and ABD pad, ABd pad to top of foot followed by gauze wrap. Change Daily. Consider warm blanket periodically to lowe) Homebound: Leaving the home is medically contraindicated at this time without the asist of a device and/or another person due th the listed conditions above and below. Reason homebound: unsteady gait / fall risk, cognitively impaired / unsafe and u nable to drive Certification: Based on the above findings, I certify that this patient is confined to the home and needs intermittent [facility] care, physical therapy and/or speech therapy, or continues to need occupational therapy. The patient is under my care, and I have initiated the establishment of the plan of care. The patient will be followed by a physician who will periodically review the plan of care. Time Spent With Patient Time: Total time managing care of this patient today ____ minutes.
[2024-08-23 14:58] VITALS: BP 138/68; PULSE 65; RESP 17; TEMP 36.6; O2SAT 98
== END 2024-08-23 15:05 | disposition home health service (06) | DRG 603 ==
LOC: HO.ED 19:58 → HO.EDOVER 21:31 → HO.S3 08-18 11:56
PROVIDERS: Hospitalist; Physician Assistant; Admitting Provider Student in an Organized Health Care Education/Training Program; Emergency Provider Internal Medicine; PCP Internal Medicine; Visit Provider Hospitalist
DX: L03.116 Cellulitis of left lower limb (principal); L97.929 Non-pressure chronic ulcer of unspecified part of left lower leg with unspecified severity; I82.512 Chronic embolism and thrombosis of left femoral vein; I82.542 Chronic embolism and thrombosis of left tibial vein; F03.90 Unspecified dementia, unspecified severity, without behavioral disturbance, psychotic disturbance, mood disturbance, and anxiety; J44.9 Chronic obstructive pulmonary disease, unspecified; B35.3 Tinea pedis; Z79.01 Long term (current) use of anticoagulants; Z79.899 Other long term (current) drug therapy
CPT/HCPCS: 36415; 80048; 80053; 80202; 82565; 83605; 83690; 85025; 85610; 85652; 86140; 87040; 93971; 97162; 97530; 99212; 99285; J3370; J3371

== ENCOUNTER → 2024-08-17 13:22 | Outpatient (BNV) | payer MEDICARE, OTHER, SELFPAY | PROVIDERS: PCP Internal Medicine; Visit Provider Radiology Diagnostic Radiology | DX: M79.662 Pain in left lower leg (principal) | CPT/HCPCS: 93971 ==

== ENCOUNTER → 2024-08-17 21:28 | Outpatient (BNV) | payer MEDICARE, OTHER, SELFPAY | PROVIDERS: Admitting Provider Student in an Organized Health Care Education/Training Program; Emergency Provider Internal Medicine; PCP Internal Medicine; Visit Provider Physician Assistant Surgical | DX: L97.929 Non-pressure chronic ulcer of unspecified part of left lower leg with unspecified severity (principal) | CPT/HCPCS: 99222; 99232 ==

== ENCOUNTER → 2024-08-17 21:28 | Outpatient (BNV) | payer MEDICARE, SELFPAY | PROVIDERS: Admitting Provider Student in an Organized Health Care Education/Training Program; Emergency Provider Internal Medicine; PCP Internal Medicine; Visit Provider Internal Medicine | DX: S81.802A Unspecified open wound, left lower leg, initial encounter (principal); L03.116 Cellulitis of left lower limb | CPT/HCPCS: 99222 ==

== ENCOUNTER → 2024-08-17 21:28 | Outpatient (BNV) | payer MEDICARE, OTHER, SELFPAY | PROVIDERS: Admitting Provider Student in an Organized Health Care Education/Training Program; Emergency Provider Internal Medicine; PCP Internal Medicine; Visit Provider Student in an Organized Health Care Education/Training Program | DX: L03.116 Cellulitis of left lower limb (principal); I10 Essential (primary) hypertension | CPT/HCPCS: 99223; 99233; 99239; G0180 ==

== ENCOUNTER 2024-09-05 13:57 | Outpatient (AMB) | payer MEDICARE, OTHER, SELFPAY ==
[2024-09-05 14:02] VITALS: BP 134/78; PULSE 88; O2SAT 90
--- NOTE | 2024-09-05 14:02 | A.OFFPC_ITS ---
Vital Signs 09/05/24 14:02 Height 5 ft 4 in BMI Reason not done Patient refused/unable BP 134/78 Blood Pressure Location Lt brachial Position Sitting Pulse 88 Pulse Source Pulse Oximeter Pulse Oximetry (%) 90 L Oxygen Delivery Method Room Air Intake Visit Reasons: [facility] 08/23 Leg infection Allergies Penicillins [PENICILLINS] Allergy (Intermediate, Verified 09/05/24 14:03) RASH halothane [HALOTHANE] Adverse Reaction (Intermediate, Verified 09/05/24 14:03) ELEVATED LIVER ENZYMES Medication List - Last Reconciled 09/06/24 by Boubacar Delarosa MD apixaban (Eliquis) 5 mg PO DAILY ciprofloxacin HCl (Cipro) 250 mg PO BID clotrimazole 1% 1 appl See Protocol topical BID doxycycline monohydrate 100 mg PO Q12H lisinopril 20 mg PO DAILY montelukast 10 mg PO DAILY PRN Tobacco use date assessed: 08/17/24 Fall risk assessment: No Falls in past year Last assessed Fall Risk: 09/05/24 Dental Screening Dental Screen Date: 08/17/24 HPI [facility] 08/23 Leg infection HPI Details recurrent cellulitis with skin breakdown left lower leg went to wound clinic and wound has healed [facility] Medical History (Updated 08/25/24 @ 00:02 by Amrita French) Acute deep vein thrombosis of left lower extremity Hypertension COPD (chronic obstructive pulmonary disease) Allergic rhinitis Surgical History No history of previous surgery Family History Mother No problems noted. Father No problems noted. Social History Household Members: Children Housing: House Do you presently have visiting nurse or other home services: Yes Alcohol intake: never Patient Tobacco Use Status: Never used Tobacco Tobacco use type: Cigarette e-Cigarette/Vaping Use: Never Used Second Hand Smoke Exposure: No service: No Current occupational status: retired Cognitive needs: Yes (Walker, cane) Hearing needs: No Vision needs: Yes (reading glasses) Questionnaire PHQ-9 Over the last 2 weeks, how often have you been bothered by any of the following problems? 1. Little interest or pleasure in doing things: not at all 2. Feeling down, depressed, or hopeless: not at all 3. Trouble falling or staying asleep, or sleeping too much: not at all 4. Feeling tired or having little energy: not at all 5. Poor appetite or overeating: not at all 6. Feeling bad about yourself - or that you are a failure or have let yourself or your family down: not at all 7. Trouble concentrating on things, such as reading the newspaper or watching television: not at all 8. Moving or speaking so slowly that other people could have noticed. Or the opposite - being so fidgety or restless that you have been moving around a lot more than usual: not at all 9. Thoughts that you would be better off or of hurting yourself in some way: not at all Total score: 0 Depression Screening Interpretation: Negative Depression Screening Done: Yes Source: Developed by Drs. Boston Morris, Kayla Levi, Jonah Matthews and colleagues, with an educational camacho from [employer]. Thrive Questionnaire Date Thrive assessed: 08/19/24 SALVADOR-7 AMB Questionnaire SALVADOR-7 Date SALVADOR - 7 assessed: 08/17/24 Source: Developed by Drs. Boston Morris, Kayla Levi, Jonah Matthews and colleagues, with an educational camacho from [employer]. Review of Systems Const Denies chills, Denies headache(s) and Denies weight loss ENT Denies headache(s) Card Denies chest pain, Denies syncope, Denies irregular heart rhythm and Denies dyspnea Resp Denies chest congestion, Denies cough and Denies dyspnea GI Denies abdominal pain, Denies change in stool character, Denies nausea and Denies vomiting Musc Denies deformity and Denies joint swelling Neuro Denies syncope and Denies headache(s) Physical exam (Primary Care) Vital Signs: Last Vital Signs Pulse 88 09/05/24 14:02 BP 134/78 09/05/24 14:02 Pulse Ox 90 L 09/05/24 14:02 Oxygen Delivery Method Room Air 09/05/24 14:02 Tobacco/Smoking Status: Tobacco use Status Tobacco use date assessed 08/17/24 09/05/24 14:07 Patient Tobacco Use Status Never used Tobacco 09/05/24 14:07 Tobacco use type Cigarette 02/05/25 14:07 e-Cigarette/Vaping Use Never Used 09/05/24 14:07 PHQ-9: PHQ-9 Score PHQ-9: Total score 0 09/05/24 14:07 Depression Screening Interpretation: Negative Thrive Assessment: Date of Thrive Assessment Date Thrive assessed 08/19/24 09/05/24 14:07 Const General: cooperative, comfortable, no acute distress and alert Neck Neck: Yes no lymphadenopathy Thyroid: Thyroid normal Resp Effort & Inspection: normal respiratory effort Auscultation: clear to auscultation bilaterally Percussion: percussion normal Cardio Jugular venous distension: no JVD Palpation: normal PMI Rate: regular rate Rhythm: regular rhythm Heart sounds: S1 normal heart sound present and S2 normal heart sound present GI Inspection: Yes normal to inspection Palpation (GI): No hepatosplenomegaly present Skin General skin exam: no rashes or lesions noted Extrem General: Yes no clubbing, cyanosis or edema Coding Level of Care Code Est Pt Level 3 (35467) Diagnoses Wound of left lower extremity S81.802A Assessment & Plan Assessment & Plan (1) Wound of left lower extremity: Code(s): S81.802A - Unspecified open wound, left lower leg, initial encounter Category: Medical Plan: resolved Medications: New ciprofloxacin HCl (Cipro) 250 mg PO BID 10 tabs 0RF
--- OUTSIDE RECORDS SUMMARY | 2024-09-05 15:15 | XMS_ITS | Encounter Summary ---
Author Organization [facility] Address [address] [place] [address] Care Team Providers Care Critical Care Physician Assistant Name Role Phone Federico Bowman MD Primary Care Provider Encounter Details Date Type Department Care Team (Late st Contact Info) Description 07/21/2024 Lab Requisition [facility] - Main Lab [address] [facility] [place] [address] Federico Bowman MD [address] [place] [address] Essential (primary) hypertension Social History Tobacco Use Types Packs/Day Years Used Date Smoking Tobacco: Never Assessed Sex and Gender Information Value Date Recorded Sex Assigned at Not on file Gender Identity Not on file Sexual Orientation Not on file documented as of this encounter Plan of Treatment Not on file documented as of this encounter Procedures Procedure Name Priority Date/Time Associated Diagnosis Comments COMPLETE BLOOD COUNT Routine 07/23/2024 5:10 AM EST Essential (primary) hypertension COMPREHENSIVE METABOLIC PANEL Routine 07/23/2024 5:10 AM EST Essential (primary) hypertension documented in this encounter Results * (ABNORMAL) Comprehensive metabolic panel (07/23/2024 5:10 AM EST) Sodium 143 133 - 145 mmol/L LAB CHEMISTRY METHOD 07/23/2024 10:[address] [facility] Potassium 4.4 3.5 - 5.5 mmol/L LAB CHEMISTRY METHOD 07/23/2024 10:[address] [facility] Chloride 110 96 - 110 mmol/L LAB CHEMISTRY METHOD 07/23/2024 10:19 AM [facility] CO2 29 21 - 32 mmol/L LAB CHEMISTRY METHOD 07/23/2024 10:19 AM [facility] Anion Gap 4 3 - 11 LAB CHEMISTRY METHOD 07/23/2024 10:19 AM [facility] Glucose 76 70 - 100 mg/dL LAB CHEMISTRY METHOD 07/23/2024 10:19 AM [facility] BUN 16 5 - 25 mg/dL LAB CHEMISTRY METHOD 07/23/2024 10:19 AM [facility] Creatinine 0.88 0.50 - 1.10 mg/dL LAB CHEMISTRY METHOD 07/23/2024 10:19 AM [facility] eGFR 65 >=60 mL/min/1. 73m2 LAB CHEMISTRY METHOD 07/23/2024 10:19 AM [facility] Comment:Calculation based on the??Chronic Kidney Disease Epidemiology Collaboration (CKD-EPI) equation refit??without adjustment for race. BUN/Creatinine Ratio 18.2 LAB CHEMISTRY METHOD 07/23/2024 10:19 AM [facility] Calcium 9.1 8.5 - 10.5 mg/dL LAB CHEMISTRY METHOD 07/23/2024 10:19 AM [facility] AST (SGOT) 12 10 - 42 unit/L LAB CHEMISTRY METHOD 07/23/2024 10:19 AM [facility] ALT (SGPT) 12 10 - 60 unit/L LAB CHEMISTRY METHOD 07/23/2024 10:19 AM [facility] Alkaline Phosphatase 84 42 - 121 unit/L LAB CHEMISTRY METHOD 07/23/2024 10:19 AM [facility] Total Protein 5.3(L) 6.0 - 8.0 g/dL LAB CHEMISTRY METHOD 07/23/2024 10:19 AM [facility] Albumin 2.7(L) 3.2 - 5.0 g/dL LAB CHEMISTRY METHOD 07/23/2024 10:19 AM [facility] Total Bilirubin 0.4 0.0 - 1.4 mg/dL LAB CHEMISTRY METHOD 07/23/2024 10:19 AM [facility] Blood Venous blood specimen / Unknown Venipuncture / Unknown 07/23/2024 5:10 AM EST 07/23/2024 9:38 AM EST Federico Bowman MD LAB BLOOD ORDERABLES [facility] [address] [place] [address], * (ABNORMAL) Complete blood count (07/23/2024 5:10 AM EST) WBC 6.0 4.8 - 10.8 K/mcL LAB HEMETOLOGY METHOD 07/23/2024 9:52 AM [facility] RBC 3.60(L) 3.80 - 4.80 M/mcL LAB HEMETOLOGY METHOD 07/23/2024 9:52 AM [facility] Hemoglobin 11.1(L) 11.5 - 16.0 g/dL LAB HEMETOLOGY METHOD 07/23/2024 9:52 AM [facility] Hematocrit 36.0 35.0 - 47.0 % LAB HEMETOLOGY METHOD 07/23/2024 9:52 AM [facility] MCV 99.7(H) 79.0 - 98.0 FL LAB HEMETOLOGY METHOD 07/23/2024 9:52 AM [facility] MCH 30.7 27.0 - 32.0 pcg LAB HEMETOLOGY METHOD 07/23/2024 9:52 AM [facility] MCHC 30.8(L) 32.0 - 37.0 g/dL LAB HEMETOLOGY METHOD 07/23/2024 9:52 AM [facility] RDW 14.4 11.0 - 15.0 % LAB HEMETOLOGY METHOD 07/23/2024 9:[address] [facility] Platelets 321 130 - 400 K/mcL LAB HEMETOLOGY METHOD 07/23/2024 9:[address] [facility] MPV 10.5 7.0 - 11.0 FL LAB HEMETOLOGY METHOD 07/23/2024 9:[address] [facility] NRBC 0.0 <1.0 % LAB HEMETOLOGY METHOD 07/23/2024 9:[address] [facility] NRBC Absolute 0.00 <0.10 K/mcL LAB HEMETOLOGY METHOD 07/23/2024 9:[address] [facility] Blood Venous blood specimen / Unknown Venipuncture / Unknown 07/23/2024 5:10 AM EST 07/23/2024 9:33 AM EST Federico Bowman MD LAB BLOOD ORDERABLES [facility] [address] [place] [id number] [phone] documented in this encounter Visit Diagnoses Diagnosis Essential (primary) hypertension Unspecified essential hypertension documented in this encounter Care Teams Critical Care Physician Assistant Relationship Specialty Start Date End Date Federico Bowman MD [address] [place] [address] PCP - General Internal Medicine 07/04/24 documented as of this encounter
--- OUTSIDE RECORDS SUMMARY | 2024-09-05 15:16 | XMS_ITS | Encounter Summary ---
Author Organization [facility] Address [address] [place] [address] Care Team Providers Care Dwarf Tree Grower Name Role Phone Federico Bowman MD Primary Care Provider [phone] Encounter Details Date Type Department Care Team (Late st Contact Info) Description 07/24/2024 Lab Requisition [facility] - Main Lab [address] [facility] [place] [address] Federico Bowman MD [address] [place] [address] Essential (primary) hypertension Social History [...] Associated Diagnosis Comments COMPLETE BLOOD COUNT Routine 07/26/2024 5:09 AM EST Essential (primary) hypertension BASIC METABOLIC PANEL Routine 07/26/2024 5:09 AM EST Essential (primary) hypertension documented in this encounter Results * (ABNORMAL) Basic metabolic panel (07/26/2024 5:09 AM EST) Sodium 141 133 - 145 mmol/L LAB CHEMISTRY METHOD 07/26/2024 11:58 AM EST [facility] Potassium 4.3 3.5 - 5.5 mmol/L LAB CHEMISTRY METHOD 07/26/2024 11:58 AM EST [facility] Chloride 109 96 - 110 mmol/L LAB CHEMISTRY METHOD 07/26/2024 11:58 AM EST [facility] CO2 26 21 - 32 mmol/L LAB CHEMISTRY METHOD 07/26/2024 11:[address] [facility] Anion Gap 6 3 - 11 LAB CHEMISTRY METHOD 07/26/2024 11:[address] [facility] Glucose 71 70 - 100 mg/dL LAB CHEMISTRY METHOD 07/26/2024 11:[address] [facility] BUN 15 5 - 25 mg/dL LAB CHEMISTRY METHOD 07/26/2024 11:[address] [facility] Creatinine 0.78 0.50 - 1.10 mg/dL LAB CHEMISTRY METHOD 07/26/2024 11:[address] [facility] eGFR 75 >=60 mL/min/1. 73m2 LAB CHEMISTRY METHOD 07/26/2024 11:[address] [facility] Comment:Calculation based on the??Chronic Kidney Disease Epidemiology Collaboration (CKD-EPI) equation refit??without adjustment for race. BUN/Creatinine Ratio 19.2 LAB CHEMISTRY METHOD 07/26/2024 11:[address] [facility] Calcium 8.2(L) 8.5 - 10.5 mg/dL LAB CHEMISTRY METHOD 07/26/2024 11:[address] [facility] Blood Venous blood specimen / Unknown Venipuncture / Unknown 07/26/2024 5:09 AM EST 07/26/2024 11:23 AM EST Federico Bowman MD LAB BLOOD ORDERABLES [facility] [address] [place] [address], * (ABNORMAL) Complete blood count (07/26/2024 5:09 AM EST) WBC 3.6(L) 4.8 - 10.8 K/mcL LAB HEMETOLOGY METHOD 07/26/2024 11:[address] [facility] RBC 3.50(L) 3.80 - 4.80 M/mcL LAB HEMETOLOGY METHOD 07/26/2024 11:[address] [facility] Hemoglobin 10.8(L) 11.5 - 16.0 g/dL LAB HEMETOLOGY METHOD 07/26/2024 11:[address] [facility] Hematocrit 34.6(L) 35.0 - 47.0 % LAB HEMETOLOGY METHOD 07/26/2024 11:[address] [facility] MCV 98.6(H) 79.0 - 98.0 FL LAB HEMETOLOGY METHOD 07/26/2024 11:[address] [facility] MCH 30.8 27.0 - 32.0 pcg LAB HEMETOLOGY METHOD 07/26/2024 11:[address] [facility] MCHC 31.2(L) 32.0 - 37.0 g/dL LAB HEMETOLOGY METHOD 07/26/2024 11:[address] [facility] RDW 14.8 11.0 - 15.0 % LAB HEMETOLOGY METHOD 07/26/2024 11:[address] [facility] Platelets 268 130 - 400 K/mcL LAB HEMETOLOGY METHOD 07/26/2024 11:[address] [facility] MPV 10.8 7.0 - 11.0 FL LAB HEMETOLOGY METHOD 07/26/2024 11:[address] [facility] NRBC 0.0 <1.0 % LAB HEMETOLOGY METHOD 07/26/2024 11:[address] [facility] NRBC Absolute 0.00 <0.10 K/mcL LAB HEMETOLOGY METHOD 07/26/2024 11:[address] [facility] Blood Venous blood specimen / Unknown Venipuncture / Unknown 07/26/2024 5:09 AM EST 07/26/2024 11:14 AM EST Federico Bowman MD [facility] [address] [place] [address], documented in this encounter Visit Diagnoses Diagnosis Essential (primary) hypertension Unspecified essential hypertension documented in this encounter Care Teams Dwarf Tree Grower Relationship Specialty Start Date End Date Federico Bowman MD [address] [place] [address] PCP - General Internal Medicine 07/04/24 documented as of this encounter
--- OUTSIDE RECORDS SUMMARY | 2024-09-05 15:16 | XMS_ITS ---
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, UNSPECIFIED SEVERITY, WITHOUT BEHAVIORAL DISTURBANCE, PSYCHOTIC DISTURBANCE, MOOD DISTURBANCE, AND ANXIETY (F02.80 - ICD-10-CM) ACTIVE 08/03/2020 ESSENTIAL (PRIMARY) HYPERTENSION (I10 - ICD-10-CM) ACT JEN 08/03/2020 OTHER NONSPECIFIC ABNORMAL F INDING OF LUNG FIELD (R91.8 - ICD-10-CM) ACTIVE 08/03/2020 HISTORY OF FALLING (Z91.81 - ICD-10-CM) ACTIVE 0 08/03/2020 Encounters Encounter Performer Performer Role Encounter Diagnoses Location Date Discharge - Discharged / Transferred to another type of institution - [facility] (S[facility]) 1 07:51 pm EST - 1 11:29 am EST Immunizations Vaccine Date SARS-COV-2 (COVID-19) 09/04/2020 01:00 p m EST SARS-COV-2 (COVID-19) Social History
--- OUTSIDE RECORDS SUMMARY | 2024-09-05 15:16 | XMS_ITS | Encounter Summary ---
Author Organization [facility] Address [address] [place] [address] Care Team Providers Care Disaster Response Director Name Role Phone Federico Bowman MD Primary Care Provider [phone] Encounter Details Date Type Department Care Team (Late st Contact Info) Description 07/04/2024 Lab Requisition [facility] - Main Lab [address] [facility] [place] [address] Federico Bowman MD [address] [place] [address] Essential (primary) hypertension Social History [...] Associated Diagnosis Comments COMPLETE BLOOD COUNT Routine 07/05/2024 4:57 AM EST Essential (primary) hypertension BASIC METABOLIC PANEL Routine 07/05/2024 4:57 AM EST Essential (primary) hypertension documented in this encounter Results * Basic metabolic panel (07/05/2024 4:57 AM EST) Sodium 141 133 - 145 mmol/L LAB CHEMISTRY METHOD 07/05/2024 8:56 AM EST [facility] Potassium 4.6 3.5 - 5.5 mmol/L LAB CHEMISTRY METHOD 07/05/2024 8:56 AM EST [facility] Chloride 108 96 - 110 mmol/L LAB CHEMISTRY METHOD 07/05/2024 8:56 AM EST [facility] CO2 28 21 - 32 mmol/L LAB CHEMISTRY METHOD 07/05/2024 8:56 AM [facility] Anion Gap 5 3 - 11 LAB CHEMISTRY METHOD 07/05/2024 8:56 AM [facility] Glucose 84 70 - 100 mg/dL LAB CHEMISTRY METHOD 07/05/2024 8:56 AM [facility] BUN 15 5 - 25 mg/dL LAB CHEMISTRY METHOD 07/05/2024 8:56 AM [facility] Creatinine 0.83 0.50 - 1.10 mg/dL LAB CHEMISTRY METHOD 07/05/2024 8:56 AM [facility] eGFR 70 >=60 mL/min/1. 73m2 LAB CHEMISTRY METHOD 07/05/2024 8:56 AM [facility] Comment:Calculation based on the??Chronic Kidney Disease Epidemiology Collaboration (CKD-EPI) equation refit??without adjustment for race. BUN/Creatinine Ratio 18.1 LAB CHEMISTRY METHOD 07/05/2024 8:56 AM [facility] Calcium 8.8 8.5 - 10.5 mg/dL LAB CHEMISTRY METHOD 07/05/2024 8:56 AM [facility] Blood Venous blood specimen / Unknown Venipuncture / Unknown 07/05/2024 4:57 AM EST 07/05/2024 8:14 AM EST Federico Bowman MD LAB BLOOD ORDERABLES [facility] [address] [place] [address], * (ABNORMAL) Complete blood count (07/05/2024 4:57 AM EST) WBC 6.9 4.8 - 10.8 K/mcL LAB HEMETOLOGY METHOD 07/05/2024 8:31 AM EST [facility] RBC 3.80 3.80 - 4.80 M/mcL LAB HEMETOLOGY METHOD 07/05/2024 8:31 AM [facility] Hemoglobin 11.3(L) 11.5 - 16.0 g/dL LAB HEMETOLOGY METHOD 07/05/2024 8:31 AM [facility] Hematocrit 36.6 35.0 - 47.0 % LAB HEMETOLOGY METHOD 07/05/2024 8:31 AM [facility] MCV 97.1 79.0 - 98.0 FL LAB HEMETOLOGY METHOD 07/05/2024 8:31 AM [facility] MCH 30.0 27.0 - 32.0 pcg LAB HEMETOLOGY METHOD 07/05/2024 8:31 AM [facility] MCHC 30.9(L) 32.0 - 37.0 g/dL LAB HEMETOLOGY METHOD 07/05/2024 8:31 AM [facility] RDW 13.4 11.0 - 15.0 % LAB HEMETOLOGY METHOD 07/05/2024 8:31 AM [facility] Platelets 366 130 - 400 K/mcL LAB HEMETOLOGY METHOD 07/05/2024 8:31 AM [facility] MPV 10.8 7.0 - 11.0 FL LAB HEMETOLOGY METHOD 07/05/2024 8:31 AM [facility] NRBC 0.0 <1.0 % LAB HEMETOLOGY METHOD 07/05/2024 8:31 AM [facility] NRBC Absolute 0.00 <0.10 K/mcL LAB HEMETOLOGY METHOD 07/05/2024 8:31 AM [facility] Blood Venous blood specimen / Unknown Venipuncture / Unknown 07/05/2024 4:57 AM EST 07/05/2024 8:14 AM EST Federico Bowman MD LAB BLOOD ORDERABLES [facility] [address] [place] [address], documented in this encounter Visit Diagnoses Diagnosis Essential (primary) hypertension Unspecified essential hypertension documented in this encounter Care Teams Disaster Response Director Relationship Specialty Start Date End Date Federico Bowman MD [address] [place] [id number] PCP - General Internal Medicine 07/04/24 documented as of this encounter
--- OUTSIDE RECORDS SUMMARY | 2024-09-05 15:16 | XMS_ITS | Encounter Summary ---
Author Organization [facility] Address [address] [place] [address] Care Team Providers Care Aerial Photographer Name Role Phone Federico Bowman MD Primary Care Provider [phone] Encounter Details Date Type Department Care Team (Late st Contact Info) Description 06/27/[address] [facility] - Main Lab [address] [facility] [place] [address] Federico Bowman MD [address] [place] [address] Essential (primary) hypertension Social History [...] Associated Diagnosis Comments COMPLETE BLOOD COUNT Routine 06/27/2024 4:48 AM EST Essential (primary) hypertension COMPREHENSIVE METABOLIC PANEL Routine 06/27/2024 4:48 AM EST Essential (primary) hypertension documented in this encounter Results * (ABNORMAL) Comprehensive metabolic panel (06/27/2024 4:48 AM EST) Sodium 141 133 - 145 mmol/L LAB CHEMISTRY METHOD 06/27/2024 2:43 PM EST [facility] Potassium 4.9 3.5 - 5.5 mmol/L LAB CHEMISTRY METHOD 06/27/2024 2:43 PM EST [facility] Chloride 108 96 - 110 mmol/L LAB CHEMISTRY METHOD 06/27/2024 2:43 PM [facility] CO2 26 21 - 32 mmol/L LAB CHEMISTRY METHOD 06/27/2024 2:43 PM [facility] Anion Gap 7 3 - 11 LAB CHEMISTRY METHOD 06/27/2024 2:43 PM [facility] Glucose 69(L) 70 - 100 mg/dL LAB CHEMISTRY METHOD 06/27/2024 2:43 PM [facility] BUN 16 5 - 25 mg/dL LAB CHEMISTRY METHOD 06/27/2024 2:43 PM [facility] Creatinine 0.86 0.50 - 1.10 mg/dL LAB CHEMISTRY METHOD 06/27/2024 2:43 PM [facility] eGFR 67 >=60 mL/min/1. 73m2 LAB CHEMISTRY METHOD 06/27/2024 2:43 PM [facility] Comment:Calculation based on the??Chronic Kidney Disease Epidemiology Collaboration (CKD-EPI) equation refit??without adjustment for race. BUN/Creatinine Ratio 18.6 LAB CHEMISTRY METHOD 06/27/2024 2:43 PM [facility] Calcium 8.7 8.5 - 10.5 mg/dL LAB CHEMISTRY METHOD 06/27/2024 2:43 PM [facility] AST (SGOT) 15 10 - 42 unit/L LAB CHEMISTRY METHOD 06/27/2024 2:43 PM [facility] ALT (SGPT) 14 10 - 60 unit/L LAB CHEMISTRY METHOD 06/27/2024 2:43 PM [facility] Alkaline Phosphatase 95 42 - 121 unit/L LAB CHEMISTRY METHOD 06/27/2024 2:43 PM [facility] Total Protein 5.8(L) 6.0 - 8.0 g/dL LAB CHEMISTRY METHOD 06/27/2024 2:43 PM [facility] Albumin 3.0(L) 3.2 - 5.0 g/dL LAB CHEMISTRY METHOD 06/27/2024 2:43 PM [facility] Total Bilirubin 0.8 0.0 - 1.4 mg/dL LAB CHEMISTRY METHOD 06/27/2024 2:43 PM [facility] Blood Venous blood specimen / Unknown Venipuncture / Unknown 06/27/2024 4:48 AM EST 06/27/2024 10:29 AM EST Federico Bowman MD LAB BLOOD ORDERABLES [facility] [address] [place] [address], * (ABNORMAL) Complete blood count (06/27/2024 4:48 AM EST) WBC 7.4 4.8 - 10.8 K/mcL LAB HEMETOLOGY METHOD 06/27/2024 10:39 AM [facility] RBC 4.10 3.80 - 4.80 M/mcL LAB HEMETOLOGY METHOD 06/27/2024 10:39 AM [facility] Hemoglobin 12.5 11.5 - 16.0 g/dL LAB HEMETOLOGY METHOD 06/27/2024 10:39 AM [facility] Hematocrit 40.1 35.0 - 47.0 % LAB HEMETOLOGY METHOD 06/27/2024 10:39 AM [facility] MCV 98.0 79.0 - 98.0 FL LAB HEMETOLOGY METHOD 06/27/2024 10:39 AM [facility] MCH 30.6 27.0 - 32.0 pcg LAB HEMETOLOGY METHOD 06/27/2024 10:39 AM [facility] MCHC 31.2(L) 32.0 - 37.0 g/dL LAB HEMETOLOGY METHOD 06/27/2024 10:39 AM [facility] RDW 13.7 11.0 - 15.0 % LAB HEMETOLOGY METHOD 06/27/2024 10:39 AM EST [facility] Platelets 371 130 - 400 K/mcL LAB HEMETOLOGY METHOD 06/27/2024 10:39 AM EST [facility] MPV 11.3(H) 7.0 - 11.0 FL LAB HEMETOLOGY METHOD 06/27/2024 10:39 AM EST [facility] NRBC 0.0 <1.0 % LAB HEMETOLOGY METHOD 06/27/2024 10:39 AM EST [facility] NRBC Absolute 0.00 <0.10 K/mcL LAB HEMETOLOGY METHOD 06/27/2024 10:39 AM EST [facility] Blood Venous blood specimen / Unknown Venipuncture / Unknown 06/27/2024 4:48 AM EST 06/27/2024 10:29 AM EST Federico Bowman MD LAB BLOOD ORDERABLES [facility] [address] [place], [place] [address] [phone] documented in this encounter Visit Diagnoses Diagnosis Essential (primary) hypertension Unspecified essential hypertension documented in this encounter Care Teams Aerial Photographer Relationship Specialty Start Date End Date Federico Bowman MD [address] [place] [address] PCP - General Internal Medicine 07/04/24 documented as of this encounter
--- OUTSIDE RECORDS SUMMARY | 2024-09-05 15:16 | XMS_ITS | Clinical Summary ---
Author Organization [address] [facility] Address [address] [place] [address] Phone Care Team Providers Care Artillery Maintenance Supervisor Name Role Phone Federico Bowman MD Primary Care Provider Encounters Date Type Department Care Team Description 07/24/2024 Lab Requisition [facility] Lab [address] [place] [address] Federico Bowman MD Essential (primary) hypertension 07/21/2024 Lab Requisition [facility] Lab [address] [place] [address] Federico Bowman MD Essential (primary) hypertension 07/18/2024 Lab Requisition [facility] Lab [address] [place] [address] Federico Bowman MD Essential (primary) hypertension 07/13/2024 Lab Requisition [facility] Lab [address] [place] [address] Federico Bowman MD Essential (primary) hypertension 07/11/2024 Lab Requisition [facility] Lab [address] [place] [address] Federico Bowman MD Essential (primary) hypertension 07/09/2024 Lab Requisition [facility] Lab [address] [place] [address] Federico Bowman MD Essential (primary) hypertension 07/08/2024 Lab Requisition [facility] Lab [address] [place] [address] Federico Bowman MD Essential (primary) hypertension 07/04/2024 Lab Requisition [facility] - Main Lab [address] [place] [phone] Federico Bowman MD Essential (primary) hypertension 06/29/2024 Lab Requisition [facility] Lab [address] [place] [phone] Federico Bowman MD Essential (primary) hypertension 06/27/2024 Lab Requisition [facility] - Main Lab [address] [place] [phone] Federico Bowman MD Essential (primary) hypertension from Last 3 Months Social History Tobacco Use Types Packs/Day Years Used Date Smoking Tobacco: Never Assessed Sex and Gender Information Value Date Recorded Sex Assigned at Not on file Gender Identity Not on file Sexual Orientation Not on file Plan of Treatment Health Maintenance Due Date Last Done Comments DTaP,Tdap,and Td Vaccines (1 - Tdap) 1959 Zoster Vaccines (1 of 2) 1990 Pneumococcal Vaccine: 65+ Years (1 of 1 - PCV) 2005 RSV Immunization Patients 60+ Years Old (1 - 1-dose 75+ series) 2015 COVID-19 Vaccine ( - season) 2024 Cholesterol Screening (Lipid Panel) 06/27/2024 Depression Screening 06/27/2024 Falls Risk Assessment 06/27/2024 Medicare Annual Wellness Visit 06/27/2024 Osteoporosis Screening (Bone Density Screening) 06/27/2024 Social Influencers of Health Screening 06/27/2024 Hypertension/CHF/CAD Annual BMP Blood Test 07/26/2025 07/26/2024, 07/23/2024, 07/19/2024, Additional history exists Influenza Vaccine Completed 06/20/2024 HIB Vaccines Aged Out No longer eligi ble based on patient's age to complete this topic HPV Vaccines Aged Out No longer eligi ble based on patient's age to complete this topic Hepatitis A Vaccines Aged Out No long er eligible based on patient's age to complete this topic Hepatitis B Vaccines Aged Out No long er eligible based on patient's age to complete this topic IPV Vaccines Aged Out No longer eligi ble based on patient's age to complete this topic MMR Vaccines Aged Out No longer eligi ble based on patient's age to complete this topic Meningococcal ACWY Vaccine Aged Out N o longer eligible based on patient's age to complete this topic RSV Immunization Patients Under 20 months Aged Out No longer eligible based on patient's age to complete this topic Varicella Vaccines Aged Out No longer eligible based on patient's age to complete this topic Procedures Procedure Name Priority Date/Time Associated Diagnosis Comments BASIC METABOLIC PANEL Routine 07/26/2024 5:09 AM EST Essential (primary) hypertension COMPLETE BLOOD COUNT Routine 07/26/2024 5:09 AM EST Essential (primary) hypertension COMPREHENSIVE METABOLIC PANEL Routine 07/23/2024 5:10 AM EST Essential (primary) hypertension COMPLETE BLOOD COUNT Routine 07/23/2024 5:10 AM EST Essential (primary) hypertension BASIC METABOLIC PANEL Routine 07/19/2024 5:03 AM EST Essential (primary) hypertension COMPLETE BLOOD COUNT Routine 07/19/2024 5:03 AM EST Essential (primary) hypertension COMPREHENSIVE METABOLIC PANEL Routine 07/16/2024 5:08 AM EST Essential (primary) hypertension COMPLETE BLOOD COUNT Routine 07/16/2024 5:08 AM EST Essential (primary) hypertension BASIC METABOLIC PANEL Routine 07/12/2024 5:10 AM EST Essential (primary) hypertension COMPLETE BLOOD COUNT Routine 07/12/2024 5:10 AM EST Essential (primary) hypertension COMPREHENSIVE METABOLIC PANEL Routine 07/10/2024 4:56 AM EST Essential (primary) hypertension COMPLETE BLOOD COUNT Routine 07/09/2024 4:55 AM EST Essential (primary) hypertension BASIC METABOLIC PANEL Routine 07/05/2024 4:57 AM EST Essential (primary) hypertension COMPLETE BLOOD COUNT Routine 07/05/2024 4:57 AM EST Essential (primary) hypertension COMPREHENSIVE METABOLIC PANEL Routine 07/02/2024 5:02 AM EST Essential (primary) hypertension COMPLETE BLOOD COUNT Routine 07/02/2024 5:02 AM EST Essential (primary) hypertension COMPREHENSIVE METABOLIC PANEL Routine 06/27/2024 4:48 AM EST Essential (primary) hypertension COMPLETE BLOOD COUNT Routine 06/27/2024 4:48 AM EST Essential (primary) hypertension from Last 3 Months Results * (ABNORMAL) Complete blood count (07/26/2024 5:09 AM EST) Only the most recent of9 resultswithin the time period is included. WBC 3.6(L) 4.8 - 10.8 K/mcL LAB HEMETOLOGY METHOD 07/26/2024 11:34 AM [facility] RBC 3.50(L) 3.80 - 4.80 M/mcL LAB HEMETOLOGY METHOD 07/26/2024 11:34 AM [facility] Hemoglobin 10.8(L) 11.5 - 16.0 g/dL LAB HEMETOLOGY METHOD 07/26/2024 11:34 AM [facility] Hematocrit 34.6(L) 35.0 - 47.0 % LAB HEMETOLOGY METHOD 07/26/2024 11:34 AM [facility] MCV 98.6(H) 79.0 - 98.0 FL LAB HEMETOLOGY METHOD 07/26/2024 11:34 AM [facility] MCH 30.8 27.0 - 32.0 pcg LAB HEMETOLOGY METHOD 07/26/2024 11:34 AM [facility] MCHC 31.2(L) 32.0 - 37.0 g/dL LAB HEMETOLOGY METHOD 07/26/2024 11:34 AM [facility] RDW 14.8 11.0 - 15.0 % LAB HEMETOLOGY METHOD 07/26/2024 11:34 AM [facility] Platelets 268 130 - 400 K/mcL LAB HEMETOLOGY METHOD 07/26/2024 11:34 AM [facility] MPV 10.8 7.0 - 11.0 FL LAB HEMETOLOGY METHOD 07/26/2024 11:34 AM [facility] NRBC 0.0 <1.0 % LAB HEMETOLOGY METHOD 07/26/2024 11:34 AM [facility] NRBC Absolute 0.00 <0.10 K/mcL LAB HEMETOLOGY METHOD 07/26/2024 11:34 AM [facility] Blood Venous blood specimen / Unknown Venipuncture / Unknown 07/26/2024 5:09 AM EST 07/26/2024 11:14 AM EST Federico Bowman MD LAB BLOOD ORDERABLES [facility] LAB [address] [place] [address], * (ABNORMAL) Basic metabolic panel (07/26/2024 5:09 AM EST) Only the most recent of4 resultswithin the time period is included. Sodium 141 133 - 145 mmol/L LAB CHEMISTRY METHOD 07/26/2024 11:58 AM [facility] Potassium 4.3 3.5 - 5.5 mmol/L LAB CHEMISTRY METHOD 07/26/2024 11:58 AM [facility] Chloride 109 96 - 110 mmol/L LAB CHEMISTRY METHOD 07/26/2024 11:58 AM [facility] CO2 26 21 - 32 mmol/L LAB CHEMISTRY METHOD 07/26/2024 11:58 AM [facility] Anion Gap 6 3 - 11 LAB CHEMISTRY METHOD 07/26/2024 11:58 AM [facility] Glucose 71 70 - 100 mg/dL LAB CHEMISTRY METHOD 07/26/2024 11:58 AM [facility] BUN 15 5 - 25 mg/dL LAB CHEMISTRY METHOD 07/26/2024 11:58 AM [facility] Creatinine 0.78 0.50 - 1.10 mg/dL LAB CHEMISTRY METHOD 07/26/2024 11:58 AM [facility] eGFR 75 >=60 mL/min/1. 73m2 LAB CHEMISTRY METHOD 07/26/2024 11:58 AM [facility] Comment:Calculation based on the??Chronic Kidney Disease Epidemiology Collaboration (CKD-EPI) equation refit??without adjustment for race. BUN/Creatinine Ratio 19.2 LAB CHEMISTRY METHOD 07/26/2024 11:58 AM [facility] Calcium 8.2(L) 8.5 - 10.5 mg/dL LAB CHEMISTRY METHOD 07/26/2024 11:58 AM [facility] Blood Venous blood specimen / Unknown Venipuncture / Unknown 07/26/2024 5:09 AM EST 07/26/2024 11:23 AM EST Federico Bowman MD LAB BLOOD ORDERABLES [facility] [address] [place] [address], * (ABNORMAL) Comprehensive metabolic panel (07/23/2024 5:10 AM EST) Only the most recent of5 resultswithin the time period is included. Sodium 143 133 - 145 mmol/L LAB CHEMISTRY METHOD 07/23/2024 10:19 AM [facility] Potassium 4.4 3.5 - 5.5 mmol/L LAB CHEMISTRY METHOD 07/23/2024 10:19 AM [facility] Chloride 110 96 - 110 mmol/L LAB CHEMISTRY METHOD 07/23/2024 10:19 AM [facility] CO2 29 21 - 32 mmol/L LAB CHEMISTRY METHOD 07/23/2024 10:19 AM [facility] Anion Gap 4 3 - 11 LAB CHEMISTRY METHOD 07/23/2024 10:19 AM [facility] Glucose 76 70 - 100 mg/dL LAB CHEMISTRY METHOD 07/23/2024 10:19 AM [facility] BUN 16 5 - 25 mg/dL LAB CHEMISTRY METHOD 07/23/2024 10:19 AM [facility] Creatinine 0.88 0.50 - 1.10 mg/dL LAB CHEMISTRY METHOD 07/23/2024 10:19 AM [facility] eGFR 65 >=60 mL/min/1. 73m2 LAB CHEMISTRY METHOD 07/23/2024 10:19 AM [facility] Comment:Calculation based on the??Chronic Kidney Disease Epidemiology Collaboration (CKD-EPI) equation refit??without adjustment for race. BUN/Creatinine Ratio 18.2 LAB CHEMISTRY METHOD 07/23/2024 10:19 AM [facility] Calcium 9.1 8.5 - 10.5 mg/dL LAB CHEMISTRY METHOD 07/23/2024 10:19 AM [facility] AST (SGOT) 12 10 - 42 unit/L LAB CHEMISTRY METHOD 07/23/2024 10:19 AM [facility] ALT (SGPT) 12 10 - 60 unit/L LAB CHEMISTRY METHOD 07/23/2024 10:19 AM [facility] Alkaline Phosphatase 84 42 - 121 unit/L LAB CHEMISTRY METHOD 07/23/2024 10:19 AM [facility] Total Protein 5.3(L) 6.0 - 8.0 g/dL LAB CHEMISTRY METHOD 07/23/2024 10:19 AM EST [facility] Albumin 2.7(L) 3.2 - 5.0 g/dL LAB CHEMISTRY METHOD 07/23/2024 10:19 AM EST [facility] Total Bilirubin 0.4 0.0 - 1.4 mg/dL LAB CHEMISTRY METHOD 07/23/2024 10:19 AM EST [facility] Blood Venous blood specimen / Unknown Venipuncture / Unknown 07/23/2024 5:10 AM EST 07/23/2024 9:38 AM EST Federico Bowman MD LAB BLOOD ORDERABLES [facility] [address] [place] [address], from Last 3 Months Care Teams Artillery Maintenance Supervisor Relationship Specialty Start Date End Date Federico Bowman MD [address] [place] [address] PCP - General Internal Medicine 07/04/24
--- OUTSIDE RECORDS SUMMARY | 2024-09-05 15:16 | XMS_ITS | Encounter Summary ---
Author Organization [facility] Address [address] [place] [address] Care Team Providers Care Data Control Clerk Name Role Phone Federico Bowman MD Primary Care Provider [phone] Encounter Details Date Type Department Care Team (Late st Contact Info) Description 07/09/2024 Lab Requisition [facility] - Main Lab [address] [facility] [place] [address] Federico Bowman MD [address] [place] [address] Essential (primary) hypertension Social History [...] Procedure Name Priority Date/Time Associated Diagnosis Comments COMPREHENSIVE METABOLIC PANEL Routine 07/10/2024 4:56 AM EST Essential (primary) hypertension documented in this encounter Results * (ABNORMAL) Comprehensive metabolic panel (07/10/2024 4:56 AM EST) Sodium 144 133 - 145 mmol/L LAB CHEMISTRY METHOD 07/10/2024 10:27 AM EST [facility] Potassium 4.3 3.5 - 5.5 mmol/L LAB CHEMISTRY METHOD 07/10/2024 10:27 AM EST [facility] Chloride 111(H) 96 - 110 mmol/L LAB CHEMISTRY METHOD 07/10/2024 10:27 AM EST [facility] CO2 28 21 - 32 mmol/L LAB CHEMISTRY METHOD 07/10/2024 10:27 AM [facility] Anion Gap 5 3 - 11 LAB CHEMISTRY METHOD 07/10/2024 10:27 AM [facility] Glucose 75 70 - 100 mg/dL LAB CHEMISTRY METHOD 07/10/2024 10:27 AM [facility] BUN 13 5 - 25 mg/dL LAB CHEMISTRY METHOD 07/10/2024 10:27 AM [facility] Creatinine 0.76 0.50 - 1.10 mg/dL LAB CHEMISTRY METHOD 07/10/2024 10:27 AM [facility] LAB eGFR 77 >=60 mL/min/1. 73m2 LAB CHEMISTRY METHOD 07/10/2024 10:27 AM [facility] LAB Comment:Calculation based on the??Chronic Kidney Disease Epidemiology Collaboration (CKD-EPI) equation refit??without adjustment for race. BUN/Creatinine Ratio 17.1 LAB CHEMISTRY METHOD 07/10/2024 10:27 AM [facility] Calcium 8.6 8.5 - 10.5 mg/dL LAB CHEMISTRY METHOD 07/10/2024 10:27 AM [facility] AST (SGOT) 10 10 - 42 unit/L LAB CHEMISTRY METHOD 07/10/2024 10:27 AM [facility] ALT (SGPT) 12 10 - 60 unit/L LAB CHEMISTRY METHOD 07/10/2024 10:27 AM [facility] Alkaline Phosphatase 91 42 - 121 unit/L LAB CHEMISTRY METHOD 07/10/2024 10:27 AM [facility] Total Protein 5.1(L) 6.0 - 8.0 g/dL LAB CHEMISTRY METHOD 07/10/2024 10:27 AM [facility] Albumin 2.7(L) 3.2 - 5.0 g/dL LAB CHEMISTRY METHOD 07/10/2024 10:27 AM [facility] Total Bilirubin 0.4 0.0 - 1.4 mg/dL LAB CHEMISTRY METHOD 07/10/2024 10:27 AM EST [facility] Blood Venous blood specimen / Unknown Venipuncture / Unknown 07/10/2024 4:56 AM EST 07/10/2024 9:43 AM EST Federico Bowman MD LAB BLOOD ORDERABLES [facility] [address] [place], [place] [address] [phone] documented in this encounter Visit Diagnoses Diagnosis Essential (primary) hypertension Unspecified essential hypertension documented in this encounter Care Teams Data Control Clerk Relationship Specialty Start Date End Date Federico Bowman MD [address] [place] [address] PCP - General Internal Medicine 07/04/24 documented as of this encounter
--- OUTSIDE RECORDS SUMMARY | 2024-09-05 15:16 | XMS_ITS | Encounter Summary ---
Author Organization [facility] Address [address] [place] [address] Care Team Providers Care Internet Designer Name Role Phone Federico Bowman MD Primary Care Provider [phone] Encounter Details Date Type Department Care Team (Late st Contact Info) Description 06/29/2024 Lab Requisition [facility] - Main Lab [address] [facility] [place] [address] Federico Bowman MD [address] [place] [address] Essential (primary) hypertension Social History [...] Associated Diagnosis Comments COMPLETE BLOOD COUNT Routine 07/02/2024 5:02 AM EST Essential (primary) hypertension COMPREHENSIVE METABOLIC PANEL Routine 07/02/2024 5:02 AM EST Essential (primary) hypertension documented in this encounter Results * (ABNORMAL) Comprehensive metabolic panel (07/02/2024 5:02 AM EST) Sodium 143 133 - 145 mmol/L LAB CHEMISTRY METHOD 07/02/2024 9:07 AM EST [facility] Potassium 4.7 3.5 - 5.5 mmol/L LAB CHEMISTRY METHOD 07/02/2024 9:07 AM EST [facility] Chloride 109 96 - 110 mmol/L LAB CHEMISTRY METHOD 07/02/2024 9:07 AM [facility] CO2 27 21 - 32 mmol/L LAB CHEMISTRY METHOD 07/02/2024 9:07 AM [facility] Anion Gap 7 3 - 11 LAB CHEMISTRY METHOD 07/02/2024 9:07 AM [facility] Glucose 81 70 - 100 mg/dL LAB CHEMISTRY METHOD 07/02/2024 9:07 AM [facility] BUN 14 5 - 25 mg/dL LAB CHEMISTRY METHOD 07/02/2024 9:07 AM [facility] Creatinine 0.82 0.50 - 1.10 mg/dL LAB CHEMISTRY METHOD 07/02/2024 9:07 AM [facility] eGFR 71 >=60 mL/min/1. 73m2 LAB CHEMISTRY METHOD 07/02/2024 9:07 AM [facility] Comment:Calculation based on the??Chronic Kidney Disease Epidemiology Collaboration (CKD-EPI) equation refit??without adjustment for race. BUN/Creatinine Ratio 17.1 LAB CHEMISTRY METHOD 07/02/2024 9:07 AM [facility] Calcium 8.8 8.5 - 10.5 mg/dL LAB CHEMISTRY METHOD 07/02/2024 9:07 AM [facility] AST (SGOT) 15 10 - 42 unit/L LAB CHEMISTRY METHOD 07/02/2024 9:07 AM [facility] ALT (SGPT) 14 10 - 60 unit/L LAB CHEMISTRY METHOD 07/02/2024 9:07 AM [facility] Alkaline Phosphatase 109 42 - 121 unit/L LAB CHEMISTRY METHOD 07/02/2024 9:07 AM [facility] Total Protein 5.4(L) 6.0 - 8.0 g/dL LAB CHEMISTRY METHOD 07/02/2024 9:07 AM [facility] Albumin 2.8(L) 3.2 - 5.0 g/dL LAB CHEMISTRY METHOD 07/02/2024 9:07 AM [facility] Total Bilirubin 0.5 0.0 - 1.4 mg/dL LAB CHEMISTRY METHOD 07/02/2024 9:07 AM [facility] Blood Venous blood specimen / Unknown Venipuncture / Unknown 07/02/2024 5:02 AM EST 07/02/2024 8:22 AM EST Federico Bowman MD LAB BLOOD ORDERABLES [facility] [address] [place] [address], * (ABNORMAL) Complete blood count (07/02/2024 5:02 AM EST) WBC 7.2 4.8 - 10.8 K/mcL LAB HEMETOLOGY METHOD 07/02/2024 8:43 AM [facility] RBC 3.80 3.80 - 4.80 M/[facility] LAB HEMETOLOGY METHOD 07/02/2024 8:43 AM [facility] Hemoglobin 11.7 11.5 - 16.0 g/dL LAB HEMETOLOGY METHOD 07/02/2024 8:43 AM [facility] Hematocrit 37.5 35.0 - 47.0 % LAB HEMETOLOGY METHOD 07/02/2024 8:43 AM [facility] LAB MCV 98.2(H) 79.0 - 98.0 FL LAB HEMETOLOGY METHOD 07/02/2024 8:43 AM [facility] MCH 30.6 27.0 - 32.0 pcg LAB HEMETOLOGY METHOD 07/02/2024 8:43 AM [facility] MCHC 31.2(L) 32.0 - 37.0 g/dL LAB HEMETOLOGY METHOD 07/02/2024 8:43 AM [facility] RDW 13.5 11.0 - 15.0 % LAB HEMETOLOGY METHOD 07/02/2024 8:43 AM EST [facility] Platelets 358 130 - 400 K/mcL LAB HEMETOLOGY METHOD 07/02/2024 8:43 AM EST [facility] MPV 10.8 7.0 - 11.0 FL LAB HEMETOLOGY METHOD 07/02/2024 8:43 AM EST [facility] NRBC 0.0 <1.0 % LAB HEMETOLOGY METHOD 07/02/2024 8:43 AM EST [facility] NRBC Absolute 0.00 <0.10 K/mcL LAB HEMETOLOGY METHOD 07/02/2024 8:43 AM EST [facility] Blood Venous blood specimen / Unknown Venipuncture / Unknown 07/02/2024 5:02 AM EST 07/02/2024 8:20 AM EST Federico Bowman MD LAB BLOOD ORDERABLES [facility] [address] [place] [address], documented in this encounter Visit Diagnoses Diagnosis Essential (primary) hypertension Unspecified essential hypertension documented in this encounter Care Teams Internet Designer Relationship Specialty Start Date End Date Federico Bowman MD [address] [place] [address] PCP - General Internal Medicine 07/04/24 documented as of this encounter
--- OUTSIDE RECORDS SUMMARY | 2024-09-05 15:16 | XMS_ITS | Encounter Summary ---
Author Organization [facility] Address [address] [place] [address] Care Team Providers Care Health Physics Technician Name Role Phone Federico Bowman MD Primary Care Provider [phone] Encounter Details Date Type Department Care Team (Late st Contact Info) Description 07/11/2024 Lab Requisition [facility] - Main Lab [address] [facility] [place] [address] Federico Bowman MD [address] [place] [address] Essential (primary) hypertension Social History [...] Associated Diagnosis Comments COMPLETE BLOOD COUNT Routine 07/12/2024 5:10 AM EST Essential (primary) hypertension BASIC METABOLIC PANEL Routine 07/12/2024 5:10 AM EST Essential (primary) hypertension documented in this encounter Results * Basic metabolic panel (07/12/2024 5:10 AM EST) Sodium 142 133 - 145 mmol/L LAB CHEMISTRY METHOD 07/12/2024 9:[address] [facility] Potassium 4.3 3.5 - 5.5 mmol/L LAB CHEMISTRY METHOD 07/12/2024 9:[address] [facility] Chloride 108 96 - 110 mmol/L LAB CHEMISTRY METHOD 07/12/2024 9:[address] [facility] CO2 29 21 - 32 mmol/L LAB CHEMISTRY METHOD 07/12/2024 9:45 AM [facility] Anion Gap 5 3 - 11 LAB CHEMISTRY METHOD 07/12/2024 9:45 AM [facility] Glucose 72 70 - 100 mg/dL LAB CHEMISTRY METHOD 07/12/2024 9:45 AM [facility] BUN 12 5 - 25 mg/dL LAB CHEMISTRY METHOD 07/12/2024 9:45 AM [facility] Creatinine 0.93 0.50 - 1.10 mg/dL LAB CHEMISTRY METHOD 07/12/2024 9:45 AM [facility] eGFR 61 >=60 mL/min/1. 73m2 LAB CHEMISTRY METHOD 07/12/2024 9:45 AM [facility] Comment:Calculation based on the??Chronic Kidney Disease Epidemiology Collaboration (CKD-EPI) equation refit??without adjustment for race. BUN/Creatinine Ratio 12.9 LAB CHEMISTRY METHOD 07/12/2024 9:45 AM [facility] Calcium 9.1 8.5 - 10.5 mg/dL LAB CHEMISTRY METHOD 07/12/2024 9:45 AM [facility] Blood Venous blood specimen / Unknown 07/12/2024 5:10 AM EST 07/12/2024 9:10 AM EST Federico Bowman MD LAB BLOOD ORDERABLES [facility] [address] [place] [address], * (ABNORMAL) Complete blood count (07/12/2024 5:10 AM EST) WBC 5.6 4.8 - 10.8 K/mcL LAB HEMETOLOGY METHOD 07/12/2024 9:[address] [facility] RBC 3.80 3.80 - 4.80 M/mcL LAB HEMETOLOGY METHOD 07/12/2024 9:22 AM [facility] Hemoglobin 11.5 11.5 - 16.0 g/dL LAB HEMETOLOGY METHOD 07/12/2024 9:22 AM [facility] Hematocrit 37.1 35.0 - 47.0 % LAB HEMETOLOGY METHOD 07/12/2024 9:22 AM [facility] MCV 97.9 79.0 - 98.0 FL LAB HEMETOLOGY METHOD 07/12/2024 9:22 AM [facility] MCH 30.3 27.0 - 32.0 pcg LAB HEMETOLOGY METHOD 07/12/2024 9:22 AM [facility] MCHC 31.0(L) 32.0 - 37.0 g/dL LAB HEMETOLOGY METHOD 07/12/2024 9:22 AM [facility] RDW 13.8 11.0 - 15.0 % LAB HEMETOLOGY METHOD 07/12/2024 9:22 AM [facility] Platelets 313 130 - 400 K/mcL LAB HEMETOLOGY METHOD 07/12/2024 9:22 AM [facility] MPV 10.2 7.0 - 11.0 FL LAB HEMETOLOGY METHOD 07/12/2024 9:22 AM [facility] NRBC 0.0 <1.0 % LAB HEMETOLOGY METHOD 07/12/2024 9:22 AM [facility] NRBC Absolute 0.00 <0.10 K/mcL LAB HEMETOLOGY METHOD 07/12/2024 9:22 AM [facility] Blood Venous blood specimen / Unknown 07/12/2024 5:10 AM EST 07/12/2024 9:11 AM EST Federico Bowamn MD LAB BLOOD ORDERABLES [facility] [address] [place] [address], documented in this encounter Visit Diagnoses Diagnosis Essential (primary) hypertension Unspecified essential hypertension documented in this encounter Care Teams Health Physics Technician Relationship Specialty Start Date End Date Federico Bowman MD [address] [place] [id number] PCP - General Internal Medicine 07/04/24 documented as of this encounter
--- OUTSIDE RECORDS SUMMARY | 2024-09-05 15:16 | XMS_ITS ---
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 OF CONSCIOUSNESS, SUBSEQUENT ENCOUNTER (Primary) (S06.360D - ICD-10-CM) ACTIVE 06/22/2024 MUSCLE WEAKNESS (GENERALIZED) (M62.81 - ICD-10-CM) RES OLVED 01/14/2015 06/22/2024 HISTORY OF FALLING (Z91.81 - ICD-10-CM) ACTIVE 1 08/22/2023 DIFFICULTY IN WALKING, NOT E LSEWHERE CLASSIFIED (R26.2 - ICD-10-CM) RESOLVED 01/14/2015 06/22/2024 PERSONAL HISTORY OF OTHER VE NOUS THROMBOSIS AND EMBOLISM (Z86.718 - ICD-10-CM) ACTIVE 06/22/2024 PRIMARY GENERALIZED (OSTEO)A RTHRITIS (M15.0 - ICD-10-CM) RESOLVED 01/14/2015 06/22/2024 CHRONIC OBSTRUCTIVE PULMONAR Y DISEASE, UNSPECIFIED (J44.9 - ICD-10-CM) ACTIVE 06/22/2024 CHRONIC OBSTRUCTIVE PULMONAR Y DISEASE, UNSPECIFIED (J44.9 - ICD-10-CM) RESOLVED 01/14/2015 06/22/2024 ESSENTIAL (PRIMARY) HYPERTENSION (I10 - ICD-10-CM) ACT JEN 06/22/2024 HISTORY OF FALLING (Z91.81 - ICD-10-CM) RESOLVED 0 01/10/2015 06/22/2024 DIFFICULTY IN WALKING, NOT E LSEWHERE CLASSIFIED (R26.2 - ICD-10-CM) ACTIVE 06/22/2024 ESSENTIAL (PRIMARY) HYPERTENSION (I10 - ICD-10-CM) RES OLVED 01/14/2015 06/22/2024 MUSCLE WASTING AND ATROPHY, NOT ELSEWHERE CLASSIFIED, MULTIPLE SITES (M62.59 - ICD-10-CM) ACTIVE 06/22/2024 GASTRO-ESOPHAGEAL REFLUX DIS EASE WITHOUT ESOPHAGITIS (K21.9 - ICD-10-CM) RESOLVED 01/14/2015 06/22/2024 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 with home health services [facility] 5 12:40 pm EDT - 5 11:45 am EDT Discharge - Discharged to home or self care - Home - Community [facility] 08:30 pm EST - 04:10 pm EST Immunizations Vaccine Date TB 2 Step Mantoux Skin Test TB 2 Step Mantoux Skin Test 01/15/2015 0 8:00 am EDT Social History Vital Signs Vital Sign Reading Time Taken painLevel 0 {score} 06/26/2024 12:23 pm EST painLevel 3 {score} 06/26/2024 08:12 am EST painLevel 3 {score} 06/26/2024 08:08 am EST painLevel 3 {score} 06/26/2024 08:08 am EST painLevel 0 {score} 06/26/2024 01:08 am EST painLevel 0 {score} 06/26/2024 01:08 am EST painLevel 0 {score} 06/25/2024 06:47 pm EST painLevel 0 {score} 06/25/2024 06:47 pm EST painLevel 0 {score} 06/25/2024 10:37 am EST painLevel 0 {score} 06/25/2024 08:56 am EST painLevel 0 {score} 06/24/2024 11:48 pm EST painLevel 0 {score} 06/24/2024 11:48 pm EST painLevel 0 {score} 06/24/2024 02:50 pm EST painLevel 0 {score} 06/24/2024 02:50 pm EST painLevel 0 {score} 06/24/2024 09:27 am EST painLevel 0 {score} 06/23/2024 10:15 pm EST painLevel 0 {score} 06/23/2024 06:42 pm EST oxygenSaturation 94 % 06/26/2024 09:5 3 am EST oxygenSaturation 96 % 06/25/2024 06:5 6 pm EST oxygenSaturation 95 % 06/25/2024 02:2 2 pm EST oxygenSaturation 96 % 06/24/2024 02:5 0 pm EST oxygenSaturation 96 % 06/24/2024 10:5 8 am EST oxygenSaturation 96 % 06/23/2024 06:4 2 pm EST oxygenSaturation 96 % 06/23/2024 01:1 5 pm EST heartrate 93 /min 06/26/2024 09:53 am EST heartrate 67 /min 06/25/2024 06:56 pm EST heartrate 83 /min 06/25/2024 02:22 pm EST heartrate 76 /min 06/24/2024 02:50 pm EST heartrate 78 /min 06/24/2024 10:58 am EST heartrate 77 /min 06/23/2024 06:42 pm EST heartrate 76 /min 06/23/2024 01:15 pm EST temperature 98.1 [degF] 06/26/2024 09:53 am EST temperature 97.8 [degF] 06/25/2024 06:56 pm EST temperature 99.1 [degF] 06/25/2024 02:22 pm EST temperature 98.2 [degF] 06/24/2024 02:50 pm EST temperature 98.6 [degF] 06/24/2024 10:58 am EST temperature 98.5 [degF] 06/23/2024 06:42 pm EST temperature 98.6 [degF] 06/23/2024 01:15 pm EST systolicValue 141 mm[Hg] 06/26/2024 09:53 am EST diastolicValue 65 mm[Hg] 06/26/2024 09:53 am EST systolicValue 135 mm[Hg] 06/25/2024 06:56 pm EST diastolicValue 77 mm[Hg] 06/25/2024 06:56 pm EST systolicValue 112 mm[Hg] 06/25/2024 02:22 pm EST diastolicValue 68 mm[Hg] 06/25/2024 02:22 pm EST systolicValue 120 mm[Hg] 06/24/2024 02:50 pm EST diastolicValue 70 mm[Hg] 06/24/2024 02:50 pm EST systolicValue 126 mm[Hg] 06/24/2024 10:58 am EST diastolicValue 72 mm[Hg] 06/24/2024 10:58 am EST systolicValue 122 mm[Hg] 06/23/2024 06:42 pm EST diastolicValue 70 mm[Hg] 06/23/2024 06:42 pm EST respirations 16 /min 06/26/2024 09:53 am EST respirations 18 /min 06/25/2024 06:56 pm EST respirations 16 /min 06/25/2024 02:22 pm EST respirations 18 /min 06/24/2024 02:50 pm EST respirations 18 /min 06/24/2024 10:58 am EST respirations 18 /min 06/23/2024 06:42 pm EST
--- OUTSIDE RECORDS SUMMARY | 2024-09-05 15:16 | XMS_ITS | Encounter Summary ---
Author Organization [facility] Address [address] [place] [address] Care Team Providers Care Glass Production Machine Operator Name Role Phone Federico Bowman MD Primary Care Provider [phone] Encounter Details Date Type Department Care Team (Late st Contact Info) Description 07/13/2024 Lab Requisition [facility] - Main Lab [address] [facility] [place] [address] Federico Bowman MD [address] [place] [address] Essential (primary) hypertension Social History [...] Associated Diagnosis Comments COMPLETE BLOOD COUNT Routine 07/16/2024 5:08 AM EST Essential (primary) hypertension COMPREHENSIVE METABOLIC PANEL Routine 07/16/2024 5:08 AM EST Essential (primary) hypertension documented in this encounter Results * (ABNORMAL) Comprehensive metabolic panel (07/16/2024 5:08 AM EST) Sodium 145 133 - 145 mmol/L LAB CHEMISTRY METHOD 07/16/2024 11:41 AM EST [facility] Potassium 4.2 3.5 - 5.5 mmol/L LAB CHEMISTRY METHOD 07/16/2024 11:41 AM EST [facility] Chloride 111(H) 96 - 110 mmol/L LAB CHEMISTRY METHOD 07/16/2024 11:41 AM [facility] CO2 25 21 - 32 mmol/L LAB CHEMISTRY METHOD 07/16/2024 11:41 AM [facility] Anion Gap 9 3 - 11 LAB CHEMISTRY METHOD 07/16/2024 11:41 AM [facility] Glucose 79 70 - 100 mg/dL LAB CHEMISTRY METHOD 07/16/2024 11:41 AM [facility] BUN 15 5 - 25 mg/dL LAB CHEMISTRY METHOD 07/16/2024 11:41 AM [facility] Creatinine 0.77 0.50 - 1.10 mg/dL LAB CHEMISTRY METHOD 07/16/2024 11:41 AM [facility] eGFR 76 >=60 mL/min/1. 73m2 LAB CHEMISTRY METHOD 07/16/2024 11:41 AM [facility] Comment:Calculation based on the??Chronic Kidney Disease Epidemiology Collaboration (CKD-EPI) equation refit??without adjustment for race. BUN/Creatinine Ratio 19.5 LAB CHEMISTRY METHOD 07/16/2024 11:41 AM [facility] Calcium 8.6 8.5 - 10.5 mg/dL LAB CHEMISTRY METHOD 07/16/2024 11:41 AM [facility] AST (SGOT) 12 10 - 42 unit/L LAB CHEMISTRY METHOD 07/16/2024 11:41 AM [facility] ALT (SGPT) 20 10 - 60 unit/L LAB CHEMISTRY METHOD 07/16/2024 11:41 AM [facility] Alkaline Phosphatase 92 42 - 121 unit/L LAB CHEMISTRY METHOD 07/16/2024 11:41 AM [facility] Total Protein 5.1(L) 6.0 - 8.0 g/dL LAB CHEMISTRY METHOD 07/16/2024 11:41 AM [facility] Albumin 2.6(L) 3.2 - 5.0 g/dL LAB CHEMISTRY METHOD 07/16/2024 11:41 AM [facility] Total Bilirubin 0.3 0.0 - 1.4 mg/dL LAB CHEMISTRY METHOD 07/16/2024 11:41 AM [facility] Blood Venous blood specimen / Unknown Venipuncture / Unknown 07/16/2024 5:08 AM EST 07/16/2024 10:15 AM EST Federico Bowman MD LAB BLOOD ORDERABLES [facility] [address] [place] [address], * (ABNORMAL) Complete blood count (07/16/2024 5:08 AM EST) WBC 6.9 4.8 - 10.8 K/mcL LAB HEMETOLOGY METHOD 07/16/2024 10:32 AM [facility] RBC 3.50(L) 3.80 - 4.80 M/mcL LAB HEMETOLOGY METHOD 07/16/2024 10:32 AM [facility] Hemoglobin 10.6(L) 11.5 - 16.0 g/dL LAB HEMETOLOGY METHOD 07/16/2024 10:32 AM [facility] Hematocrit 34.3(L) 35.0 - 47.0 % LAB HEMETOLOGY METHOD 07/16/2024 10:32 AM [facility] MCV 99.1(H) 79.0 - 98.0 FL LAB HEMETOLOGY METHOD 07/16/2024 10:32 AM [facility] MCH 30.6 27.0 - 32.0 pcg LAB HEMETOLOGY METHOD 07/16/2024 10:32 AM [facility] MCHC 30.9(L) 32.0 - 37.0 g/dL LAB HEMETOLOGY METHOD 07/16/2024 10:32 AM [facility] RDW 14.1 11.0 - 15.0 % LAB HEMETOLOGY METHOD 07/16/2024 10:32 AM EST [facility] Platelets 315 130 - 400 K/mcL LAB HEMETOLOGY METHOD 07/16/2024 10:32 AM EST [facility] MPV 10.7 7.0 - 11.0 FL LAB HEMETOLOGY METHOD 07/16/2024 10:32 AM EST [facility] NRBC 0.0 <1.0 % LAB HEMETOLOGY METHOD 07/16/2024 10:32 AM EST [facility] NRBC Absolute 0.00 <0.10 K/mcL LAB HEMETOLOGY METHOD 07/16/2024 10:32 AM [facility] Blood Venous blood specimen / Unknown Venipuncture / Unknown 07/16/2024 5:08 AM EST 07/16/2024 10:12 AM EST Federico Bowman MD LAB BLOOD ORDERABLES [facility] [address] [phone] documented in this encounter Visit Diagnoses Diagnosis Essential (primary) hypertension Unspecified essential hypertension documented in this encounter Care Teams Glass Production Machine Operator Relationship Specialty Start Date End Date Federico Bowman MD [address] [place] [address] PCP - General Internal Medicine 07/04/24 documented as of this encounter
--- OUTSIDE RECORDS SUMMARY | 2024-09-05 15:16 | XMS_ITS | Encounter Summary ---
Author Organization [facility] Address [address] [place] [address] Care Team Providers Care Washery Boss Name Role Phone Federico Bowman MD Primary Care Provider [phone] Encounter Details Date Type Department Care Team (Late st Contact Info) Description 07/18/2024 Lab Requisition [facility] - Main Lab [address] [facility] [email or web address] [address] Federico Bowman MD [address] [place] [address] Essential (primary) hypertension Social History [...] Associated Diagnosis Comments COMPLETE BLOOD COUNT Routine 07/19/2024 5:03 AM EST Essential (primary) hypertension BASIC METABOLIC PANEL Routine 07/19/2024 5:03 AM EST Essential (primary) hypertension documented in this encounter Results * (ABNORMAL) Basic metabolic panel (07/19/2024 5:03 AM EST) Sodium 144 133 - 145 mmol/L LAB CHEMISTRY METHOD 07/19/2024 1:05 PM EST [facility] Potassium 4.1 3.5 - 5.5 mmol/L LAB CHEMISTRY METHOD 07/19/2024 1:05 PM EST [facility] Chloride 108 96 - 110 mmol/L LAB CHEMISTRY METHOD 07/19/2024 1:05 PM EST [facility] CO2 30 21 - 32 mmol/L LAB CHEMISTRY METHOD 07/19/2024 1:05 PM [facility] Anion Gap 6 3 - 11 LAB CHEMISTRY METHOD 07/19/2024 1:05 PM [facility] Glucose 69(L) 70 - 100 mg/dL LAB CHEMISTRY METHOD 07/19/2024 1:05 PM [facility] BUN 16 5 - 25 mg/dL LAB CHEMISTRY METHOD 07/19/2024 1:05 PM [facility] Creatinine 0.82 0.50 - 1.10 mg/dL LAB CHEMISTRY METHOD 07/19/2024 1:05 PM [facility] eGFR 71 >=60 mL/min/1. 73m2 LAB CHEMISTRY METHOD 07/19/2024 1:05 PM [facility] Comment:Calculation based on the??Chronic Kidney Disease Epidemiology Collaboration (CKD-EPI) equation refit??without adjustment for race. BUN/Creatinine Ratio 19.5 LAB CHEMISTRY METHOD 07/19/2024 1:05 PM [facility] Calcium 9.1 8.5 - 10.5 mg/dL LAB CHEMISTRY METHOD 07/19/2024 1:05 PM [facility] Blood Venous blood specimen / Unknown Venipuncture / Unknown 07/19/2024 5:03 AM EST 07/19/2024 11:27 AM EST Federico Bowman MD LAB BLOOD ORDERABLES [facility] [address] [place] [address], * (ABNORMAL) Complete blood count (07/19/2024 5:03 AM EST) WBC 6.0 4.8 - 10.8 K/mcL LAB HEMETOLOGY METHOD 07/19/2024 12:41 PM [facility] RBC 4.00 3.80 - 4.80 M/mcL LAB HEMETOLOGY METHOD 07/19/2024 12:41 PM [facility] Hemoglobin 12.3 11.5 - 16.0 g/dL LAB HEMETOLOGY METHOD 07/19/2024 12:41 PM [facility] Hematocrit 40.1 35.0 - 47.0 % LAB HEMETOLOGY METHOD 07/19/2024 12:41 PM [facility] MCV 100.3(H) 79.0 - 98.0 FL LAB HEMETOLOGY METHOD 07/19/2024 12:41 PM [facility] MCH 30.8 27.0 - 32.0 pcg LAB HEMETOLOGY METHOD 07/19/2024 12:41 PM [facility] MCHC 30.7(L) 32.0 - 37.0 g/dL LAB HEMETOLOGY METHOD 07/19/2024 12:41 PM [facility] RDW 14.6 11.0 - 15.0 % LAB HEMETOLOGY METHOD 07/19/2024 12:41 PM [facility] Platelets 343 130 - 400 K/mcL LAB HEMETOLOGY METHOD 07/19/2024 12:41 PM [facility] MPV 10.4 7.0 - 11.0 FL LAB HEMETOLOGY METHOD 07/19/2024 12:41 PM [facility] NRBC 0.0 <1.0 % LAB HEMETOLOGY METHOD 07/19/2024 12:41 PM [facility] NRBC Absolute 0.00 <0.10 K/mcL LAB HEMETOLOGY METHOD 07/19/2024 12:41 PM [facility] Blood Venous blood specimen / Unknown Venipuncture / Unknown 07/19/2024 5:03 AM EST 07/19/2024 11:27 AM EST Federico Sondhi MD LAB BLOOD ORDERABLES [facility] [address] [place] [address], documented in this encounter Visit Diagnoses Diagnosis Essential (primary) hypertension Unspecified essential hypertension documented in this encounter Care Teams Washery Boss Relationship Specialty Start Date End Date Federico Bowman MD [address] [place] [address] PCP - General Internal Medicine 07/04/24 documented as of this encounter
--- OUTSIDE RECORDS SUMMARY | 2024-09-05 15:16 | XMS_ITS | Encounter Summary ---
Author Organization [facility] Address [address] [place] [address] Care Team Providers Care Motor Bike Mechanic Name Role Phone Federico Bowman MD Primary Care Provider [phone] Encounter Details Date Type Department Care Team (Late st Contact Info) Description 07/08/2024 Lab Requisition [facility] - Main Lab [address] [facility] [place] [address] Federico Bowman MD [address] [place] [address] Essential (primary) hypertension Social History [...] Associated Diagnosis Comments COMPLETE BLOOD COUNT Routine 07/09/2024 4:55 AM EST Essential (primary) hypertension documented in this encounter Results * (ABNORMAL) Complete blood count (07/09/2024 4:55 AM EST) WBC 7.0 4.8 - 10.8 K/[facility] LAB HEMETOLOGY METHOD 07/09/2024 9:54 AM EST [facility] RBC 4.20 3.80 - 4.80 M/[facility] LAB HEMETOLOGY METHOD 07/09/2024 9:54 AM EST [facility] Hemoglobin 12.7 11.5 - 16.0 g/dL LAB HEMETOLOGY METHOD 07/09/2024 9:54 AM EST [facility] Hematocrit 41.7 35.0 - 47.0 % LAB HEMETOLOGY METHOD 07/09/2024 9:54 AM [facility] MCV 100.2(H) 79.0 - 98.0 FL LAB HEMETOLOGY METHOD 07/09/2024 9:54 AM [facility] MCH 30.5 27.0 - 32.0 pcg LAB HEMETOLOGY METHOD 07/09/2024 9:54 AM [facility] MCHC 30.5(L) 32.0 - 37.0 g/dL LAB HEMETOLOGY METHOD 07/09/2024 9:54 AM [facility] RDW 13.9 11.0 - 15.0 % LAB HEMETOLOGY METHOD 07/09/2024 9:54 AM [facility] Platelets 406(H) 130 - 400 K/mcL LAB HEMETOLOGY METHOD 07/09/2024 9:54 AM EST [facility] MPV 10.5 7.0 - 11.0 FL LAB HEMETOLOGY METHOD 07/09/2024 9:54 AM [facility] NRBC 0.0 <1.0 % LAB HEMETOLOGY METHOD 07/09/2024 9:54 AM [facility] NRBC Absolute 0.00 <0.10 K/mcL LAB HEMETOLOGY METHOD 07/09/2024 9:54 AM [facility] Blood Venous blood specimen / Unknown Venipuncture / Unknown 07/09/2024 4:55 AM EST 07/09/2024 9:16 AM EST Federico Bowman MD LAB BLOOD ORDERABLES [facility] [address] [place] [address], documented in this encounter Visit Diagnoses Diagnosis Essential (primary) hypertension Unspecified essential hypertension documented in this encounter Care Teams Motor Bike Mechanic Relationship Specialty Start Date End Date Federico Bowman MD [address] [place] [id number] PCP - General Internal Medicine 07/04/24 documented as of this encounter
== END 2024-09-05 15:32 | disposition home or self-care (01) ==
PROVIDERS: PCP Internal Medicine; Visit Provider Internal Medicine

== ENCOUNTER → 2024-09-05 13:57 | Outpatient (BNVA) | payer MEDICARE, OTHER, SELFPAY | PROVIDERS: PCP Internal Medicine; Visit Provider Internal Medicine | DX: S81.802D Unspecified open wound, left lower leg, subsequent encounter (principal) | CPT/HCPCS: 99212 ==

== ENCOUNTER 2024-11-18 14:23 | Emergency (ER) | payer MEDICARE, OTHER, SELFPAY ==
--- NOTE | ~2024-11-18 | CT_ITS ---
CLINICAL HISTORY: dizziness, confusion CT head without contrast Comparison: CT/SR - CT HEAD/BRAIN WO IV CON - 06/18/24 13:54 EST Findings: No intra-axial mass, midline shift, hydrocephalus, or acute hemorrhage. Interval resolution of intraventricular blood in lateral ventricles bilaterally. Focal left anterior frontal horn intraventricular fat and small focal fat in the right lateral ventricle trigone. Compared to previous examination left frontal horn fat is stable, right lateral ventricular trigone fat is new and there has been resolution of right frontal horn intraventricular fat and small foci of extra-axial fat. There is atrophy. Ventricular system more prominent relative to subarachnoid spaces with rounding of bilateral frontal horns and prominence of temporal horns which may represent communicating hydrocephalus including normal pressure hydrocephalus. Nonspecific bilateral supratentorial white matter hypodensities may represent chronic small-vessel ischemic changes and possible component of transependymal flow of CSF in the setting of hydrocephalus. Atherosclerotic vascular disease. There is no sinus or mastoid fluid. Left nasal septum deviation. Left maxillary dental implant extends into left maxillary sinus. The orbits are within normal limits. There is no acute skull fracture. IMPRESSION: 1. Prominence of ventricular system more so than subarachnoid spaces with additional findings as described raising the possibility of communicating hydrocephalus including normal pressure hydrocephalus. 2. Small focal intraventricular fat in frontal horn of left lateral ventricle and trigone of right lateral ventricle, unknown source. Intraventricular fat was also seen on previous study dated 06/18/2024. 3. Interval resolution of intraventricular blood. 4. White matter hypodensities may represent chronic small-vessel ischemic changes with component of transependymal flow of CSF. This document has been electronically signed by: Vivian Joe MD on 11/18/2024 17:09:15
[2024-11-18 14:29] VITALS: BP 212/88; PULSE 68; RESP 16; O2SAT 92
[2024-11-18 14:32] VITALS: BP 168/87; BP 212/88; PULSE 67; PULSE 68; RESP 16; O2SAT 92; O2SAT 97; BMI 19.4
--- NOTE | 2024-11-18 14:39 | PC.NURSE ---
Pt comes to ED today via EMS from home. EMS reports family is concerns for increased in confusion and difficulty ambulating. EMS states Pts family reports a increased confusion with fall and STR back in June and feels condition continues to worsen over time. Pt is A&Ox2 (person & place) Facial symmetry noted Breaths and speech are even and unlabored. Awaiting orders at this time.
--- NOTE | 2024-11-18 16:09 | ECG_ITS ---
Test Reason : AMS Blood Pressure : */* mmHG Vent. Rate : 67 BPM Atrial Rate : 67 BPM P-R Int : 152 ms QRS Dur : 76 ms QT Int : 428 ms P-R-T Axes : 34 18 11 degrees QTcB Int : 452 ms Normal sinus rhythm Nonspecific ST abnormality Abnormal ECG When compared with ECG of 18-Jun-2019 19:25, Premature ventricular complexes are no longer Present Referred By: Katja Huynh Electronically Signed By: MOE EMERSON
--- NOTE | 2024-11-18 16:34 | ED_ITS ---
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 The patient herself states she knows she has a hard time remembering. She denies pain. She is alert to self and place. She has no CP/SOB, dysuria, n/v/d. She states they should just let me be. MD complaint: confusion Onset (ago): month(s) Timing confirmed by: family member Severity: moderate Consistency of symptoms: waxing and waning Context: other Associated symptoms: denies other symptoms Related Data Home Medications ?Medication ?Instructions ?Recorded ?Confirmed No Known Home Meds 11/19/24 11/19/24 Allergies Allergy/AdvReac Type Severity Reaction Status Date / Time Penicillins [PENICILLINS] Allergy Intermediate RASH Verified 11/18/24 14:34 halothane [HALOTHANE] AdvReac Intermediate ELEVATED Verified 11/18/24 14:34 LIVER ENZYMES Review of Systems 2 Review of Systems: Constitutional : No Fever, No Chills, No Fatigue ENT/Mouth : No sore throat, No Rhinorrhea Eyes: No Eye Pain, No Swelling, No Redness Cardiovascular : No Chest Pain, No SOB, No Dyspnea on Exertion Respiratory : No Cough, No Sputum Gastrointestinal : No Nausea, No Vomiting, No Diarrhea, No abdominal Pain Genitourinary : No Dysuria, No Urinary Frequency, No Hematuria, Musculoskeletal : No joint pain, No Myalgias, No Joint Swelling Skin : No Skin Lesions, No rash Neuro : No Weakness, No Numbness, No Dizziness, no headache All other systems reviewed and are negative PMFSH Past Medical History Attestation statement: The following information was validated with the patient. Source: old records reviewed Medical History Acute deep vein thrombosis of left lower extremity Hypertension COPD (chronic obstructive pulmonary disease) Allergic rhinitis Surgical History No history of previous surgery Family History Family History Mother No problems noted. Father No problems noted. Social History Social History Household Members: Children Housing: House Do you presently have visiting nurse or other home services: Yes Alcohol intake: never Patient Tobacco Use Status: Never used Tobacco Tobacco use type: Cigarette Smoked in Last 30 Days: No e-Cigarette/Vaping Use: Never Used Second Hand Smoke Exposure: No Use of substances other than those prescribed or required for medical reasons: No Advance Directives: No Advance Directives Information Provided: No Do you have a plan to hurt others: No Plan service: No Current occupational status: retired Cognitive needs: Yes (Walker, cane) Hearing needs: No Vision needs: Yes (reading glasses) Physical Exam ED Vital Signs: Vital Signs - 24 hr 11/22/24 14:26 11/22/24 14:48 Temperature 97.7 F Pulse Rate 57 Respiratory Rate 16 22 H Blood Pressure 159/72 H 159/72 H Pulse Oximetry 96 Oxygen Delivery Method Room Air Room Air BMI result Body Mass Index 19.4 Appearance: Alert. Oriented X to person and place. No acute distress. Eyes: Pupils equal, round and reactive to light. ENT: Pharynx normal. Neck: Normal inspection. Neck supple. CVS: Normal heart rate and rhythm. Pulses normal. Respiratory: No respiratory distress. Breath sounds normal. Abdomen: Soft and nontender. Skin: Skin warm and dry. Normal skin color. Normal skin turgor. Extremities: No lower extremity edema. No calf ttp Neuro: Oriented X 2. No motor deficit. No sensory deficit. CN2-12 intact Course Course Course Narrative: family notes worsening confusion as well as possible Rx by son she lives with and Tylenol PM every night they note no brain shunt would be wanted they are concerned about meds at home as well as slurred speech, gait instability will keep overnight for PT/CM and psych Reevaluation(s) Reevaluation #1: Time: 08:51 Date: 11/19/24 Provider: ALONZO De La Torre Patient in physician observation for case management needs and psychiatric eval. No acute events reported overnight.? No current issues or complaints. Hypertensive, we will continue to monitor. Patient is pending PT/CM eval and psych consult eval. Will continue to monitor. Med rec still needs to be completed Time: 08:30 Date: 11/20/24 Provider: ALONZO Ulloa Patient in physician observation for case management needs/ psych eval. No acute events reported overnight.?No current issues or complaints. Hypertensive to 150/74. vitals otherwise wnl. Patient is pending PT/CM eval and psych consult. We will continue to monitor. med rec requested. Time: 09:10 Date: 11/21/24 Provider: ALONZO Ulloa Patient in physician observation for case management needs. No acute events reported overnight.?No current issues or complaints. VS stable. Patient is pending discharge home with family today 11/21. Will continue to monitor. 1608 -- Per case management, patient and family were initially agreeable with her discharge home with [facility] for long term services. Son was agreeable with transporting her home. Around discharge, son reported patient was too weak to go home and is requesting physical therapy consultation. Physical therapy evaluated patient. Recommending 247 care versus long-term care. Case management met with patient's 2 sons and [id number]. Plan now is to discharge patient home tomorrow with private pay care arranged at home. anticipated discharge home at 1500 tomorrow. Time: 10:30 Date: 11/22/24 Provider: ALONZO Patel Patient in physician observation for case management needs. No acute events reported overnight.? No current issues or complaints. VS stable. Observation care revealed that the patient does not meet medical necessity for hospitalization. Final disposition discussed with the patient. The patient completed observation care at 10:31AM. Patient will be discharged home with private pay help and VNA services. Sons will transport her home at 3:00 p.m.. Time: 0856 Date: 11/23/24 Provider: Katja Huynh DO Physician observation ended at 0856 Will follow up as an outpatient. CM/PT involved Medications Administered Generic Name Dose Route Start Last Admin Trade Name Freq PRN Reason Stop Dose Admin Acetaminophen 650 mg 11/18/24 19:51 11/18/24 21:32 Acetaminophen 325 Mg Tablet PO 650 mg Q6H PRN Administration Pain, Mild 1-3,fever,headache Melatonin 6 mg 11/18/24 19:51 11/18/24 21:33 Melatonin 3 Mg Tablet PO 6 mg BEDTIME PRN Administration Sleep Discontinued Medications Generic Name Dose Route Start Last Admin Trade Name Raffaele PRN Reason Stop Dose Admin Lisinopril 20 mg 11/19/24 18:43 11/19/24 19:22 Lisinopril 20 Mg Tablet PO 11/19/24 18:44 20 mg ONCE ONE Administration Protocol Medical Decision Making Medical Decision Making MDM Narrative: 84 yo female with PMH of cellulitis, memory issues since June after TBI now here with worsening memory issues she has no complaints at this time will obtain basic labs, CT head for stroke/mass, UA. Will discuss with family. She is calm and cooperative. Differential Diagnosis Differential Diagnoses: The differential diagnosis associated with the presentation includes cognitive impairment, UTI, stroke, dehydration, anemia Admission/Observation Consideration of admission/observation: Escalation of care including admission/observation considered concern for safety as well as confusion phsycian observation started at 713pm son and daughter in law involved and very concerned Lab Data [facility] Lab Attestation statement: I reviewed the patient's lab results. 11/18/24 16:52 11/18/24 16:52 Labs: Lab Results 11/18/24 11/18/24 Range/Units 16:52 17:24 WBC 8.9 (4.8-10.8) X10*3/uL RBC 4.47 (4.20-5.50) X10*6/uL Hgb 13.9 (12.0-16.0) g/dl Hct 41.8 (37.0-47.0) % MCV 93.5 (80.0-98.0) fL MCH 31.1 (27.0-33.0) pg MCHC 33.3 (31.0-35.0) g/dl RDW 13.1 (11.0-16.0) % Plt Count 270 (160-400) X10*3/uL MPV 9.8 (9.4-12.3) fL Immature Gran % (Auto) 0.4 (0.0-0.4) % Neut % (Auto) 78.3 H (45-73) % Lymph % (Auto) 11.5 L (20-40) % [place] % (Auto) 7.2 (2-11) % Eos % (Auto) 1.8 (0-4) % Baso % (Auto) 0.8 (0-2) % Lymph # (Auto) 1.0 L (1.2-4.9) X10*3/uL [place] # (Auto) 0.6 (0.1-1.2) X10*3/uL Eos # (Auto) 0.2 (0.0-0.4) X10*3/uL Baso # (Auto) 0.1 (0.0-0.2) X10*3/uL Abs Immat Gran (auto) 0.04 H (0.00-0.03) X10*3/uL Absolute Neuts (auto) 7.0 (2.0-8.3) x10*3/uL Absolute Nucleated RBC 0.000 (0.0-0.012) X10*3/uL Nucleated RBC % (auto) 0.0 (0.0-0.2) /100WBC Sodium 143 (135-145) mmol/L Potassium 3.5 (3.3-5.1) mmol/L Chloride 109 H (96-108) mmol/L Carbon Dioxide 27 (22-29) mmol/L Anion Gap 11 L (12-20) BUN 14 (9-16) mg/dL Creatinine 0.71 (0.5-1.4) mg/dL Estim Creat Clear Calc 53.9 Estimated GFR > 60 Random Glucose 87 (60-115) mg/dL Calcium 9.1 (8.4-10.2) mg/dL Magnesium 1.9 (1.6-2.6) mg/dL Total Bilirubin 0.8 (0.0-1.0) mg/dL Direct Bilirubin 0.3 (0.0-0.5) mg/dL AST 22 (5-31) U/L ALT 6 (0-31) U/L Alkaline Phosphatase 62 (39-117) U/L Troponin I High Sens 14.0 (<3.5-17.0) ng/L Total Protein 6.1 L (6.5-8.0) g/dL Albumin 3.9 (3.5-5.0) g/dL TSH 0.98 (0.32-4.0) uIU/mL Urine Color Yellow Urine Appearance Clear Urine pH 8.0 (5.0-9.0) Ur Specific [place]on 1.010 (1.005-1.025) Urine Protein Negative (Neg-Trace) mg/dL Urine Glucose (UA) Negative (Negative) mg/dL Urine Ketones Negative (Negative) mg/dL Urine Blood Negative (Negative) Urine Nitrite Negative (Negative) Ur Leukocyte Esterase Negative (Negative) Influenza Type A (PCR) NEGATIVE (Negative) Influenza Type B (PCR) NEGATIVE (Negative) RSV RNA Qual (PCR) NEGATIVE (Negative) SARS-CoV-2 RNA (RT-PCR) NEGATIVE (Negative) Independent Interpretation I performed an independent interpretation of an: EKG and CT Scan (no bleed or stroke) Interpretation: Rate: 67 Rhythm: NSR [place]: normal Normal P waves. Normal JACEY. Normal QRS complex. ST T wave : normal no BISI qTC: 452 prior studies: no acute ischemia The study has been interpreted contemporaneously by me. . Radiology Impression Discussion of test interpretation with radiology: I have reviewed the radiologist's reading. Independent Historian Clinical information obtained from an independent historian. History obtained from or confirmed by: Other (family) External Record Review External record reviewed: Outpatient record Discharge Plan Discharge Clinical Impression: Cognitive impairment Patient Disposition: Home, Self-Care Instructions: Cognitive Disorders after Traumatic Brain Injury (ED) Additional Instructions: labs, urine, viral panel negative CT head shows chronic findings could be enlarged ventricles and elevated pressure > please follow-up with your primary care physician regarding this. Please continue all at-home medications as prescribed. If any new or worsening symptoms occur including but not limited to changes in mentation, severe chest pain or shortness for breath, please seek emergent care. Prescriptions: No Action No Known Home Meds Referrals: [facility] [Outside] Print Language: Slovenian
[2024-11-18 16:58] LABS: MANUAL DIFF FLAG NO
[2024-11-18 17:00] LABS: Basophils Absolute Auto 0.1 X10*3/uL (0.0-0.2); Basophils Percent Auto 0.8 % (0-2); Eosinophils Absolute Auto 0.2 X10*3/uL (0.0-0.4); Eosinophils Percent Auto 1.8 % (0-4); Hematocrit 41.8 % (37.0-47.0); Hemoglobin 13.9 g/dl (12.0-16.0); Imm Gran Abs Auto 0.04 X10*3/uL (0.00-0.03); Imm Gran Pct Auto 0.4 % (0.0-0.4); Lymphocytes Percent Auto 11.5 % (20-40); Mean Corpuscular HGB Conc 33.3 g/dl (31.0-35.0); Mean Corpuscular Hemoglobin 31.1 pg (27.0-33.0); Mean Corpuscular Volume 93.5 fL (80.0-98.0); Mean Platelet Volume 9.8 fL (9.4-12.3); Monocytes Absolute Auto 0.6 X10*3/uL (0.1-1.2); Monocytes Percent Auto 7.2 % (2-11); Neutrophils Percent Auto 78.3 % (45-73); Platelet Count 270 X10*3/uL (160-400); Red Blood Count 4.47 X10*6/uL (4.20-5.50); Red Cell Distribution Width 13.1 % (11.0-16.0); White Blood Count 8.9 X10*3/uL (4.8-10.8)
[2024-11-18 17:22] LABS: Alanine Aminotransferase 6 U/L (0-31); Albumin Level 3.9 g/dL (3.5-5.0); Alkaline Phosphatase 62 U/L (39-117); Anion Gap 11 (12-20); Aspartate Amino Transferase 22 U/L (5-31); Bilirubin Direct 0.3 mg/dL (0.0-0.5); Bilirubin Total 0.8 mg/dL (0.0-1.0); Blood Urea Nitrogen 14 mg/dL (9-16); Calcium 9.1 mg/dL (8.4-10.2); Carbon Dioxide 27 mmol/L (22-29); Chloride 109 mmol/L (96-108); Creatinine Clr Calc Pharmacy 53.9; Estimated Glomerular Filt Rate > 60; Glucose Random 87 mg/dL (60-115); Magnesium 1.9 mg/dL (1.6-2.6); Potassium 3.5 mmol/L (3.3-5.1); Sodium 143 mmol/L (135-145); Total Protein 6.1 g/dL (6.5-8.0)
[2024-11-18 17:24] VITALS: BP 189/72; PULSE 66; RESP 12
[2024-11-18 17:36] LABS: TSH reflex Free T4 0.98 uIU/mL (0.32-4.0)
[2024-11-18 17:46] LABS: Influenza A PCR NEGATIVE (Negative); Influenza B PCR NEGATIVE (Negative); Resp Syncy Virus RNA Qual PCR NEGATIVE (Negative); SARS COV2 PCR INHOUSE NEGATIVE (Negative)
[2024-11-18 17:49] LABS: Appearance Urine Clear; Color Urine Yellow; Glucose Urine UA Negative (Negative); Leukocyte Esterase Urine Negative (Negative); Nitrite Urine Negative (Negative); Urine Blood Negative (Negative); Urine Ketones Negative (Negative); Urine Protein Negative (Neg-Trace)
[2024-11-18 19:33] VITALS: BP 125/62; PULSE 69; RESP 18; O2SAT 99
[2024-11-18] MEDS: Acetaminophen 325 MG TABLET 650 MG PO (21:32)
[2024-11-18] MEDS: Melatonin 3 MG TABLET 6 MG PO (21:33)
[2024-11-18 23:16] VITALS: BP 179/72; PULSE 67; RESP 16; O2SAT 98
--- NOTE | 2024-11-18 23:55 | PC.NURSE ---
Pt noted to be incontinent of urine. Patient cleaned up and bed linen changed. Patient alert to self and place. Reoriented to date. Callbell within reach and educated patient to call before attempting to get up as pt is a fall risk. Patient took medication whole in applesauce without issue.
[2024-11-19 02:41] VITALS: BP 182/77; PULSE 64; RESP 16; TEMP 36.6; O2SAT 99
[2024-11-19 04:00] VITALS: BP 197/83; PULSE 54; RESP 16; TEMP 36.3; O2SAT 97
--- NOTE | 2024-11-19 04:41 | MHC.EDTECH ---
did full bed change and placed purewick on pt.
[2024-11-19 05:57] VITALS: BP 183/94; PULSE 68; RESP 16; TEMP 36.8; O2SAT 97
--- NOTE | 2024-11-19 07:32 | PC.NURSE ---
Care of Pt assumed at change of shift. Pt is awake and restless. Bed change completed with player development managerAyala Corey re-applied. Pt is now resting quietly in bed. Awaiting PT/CM and Psych.
--- NOTE | 2024-11-19 07:49 | PC.NURSE ---
Call placed to [employer] for meal tray. Spoke with Renee--will make and delivery tray.
--- NOTE | 2024-11-19 10:09 | PC.NURSE ---
Video monitoring initiated for Pt safety. Pt frequently restless and attempting to get out of bed. Camera #36 placed in room. Form completed and faxed to T with receipt confirming delivery. Call placed to T to confirm visual, Ivette in VMT reports no fax received. wholesale representativeAyala Sepulveda physically delivers copy of T completed form. Coco returns to ED with Admission Ticket with VMT initials confirming visual of Pt and placed in plastic sleeve on camera.
--- NOTE | 2024-11-19 11:24 | MHC.CM.PN ---
CM RECEIVED ED CONSULT. PT IS UNABLE TO PROVIDE ALL HX, CM SPOKE WITH HCP/SON ZENA WITH WHOM THE PT LIVES. PT HAS 24/7 CARE FROM FAMILY, [facility] ASSORTMENT PLANNER/[facility]E FOR SN. PT USES A WALKER, HAS LIFT CHAIR, HOSPITAL BED WITH [facility], BEDSIDE [facility]. PT NO LONGER USES [facility] FOR MOW SHE DOESN'T EAT THE FOOD. PER ZENA, [facility] SHOULD HAVE A COPY OF HER HCP. PCP DR. ROME /PROVIDER AT [facility]. DP: CONSULT FOR PSYCH TO SEE. CM WILL CONTINUE TO FOLLOW FOR PLAN.
--- NOTE | 2024-11-19 11:35 | PC.NURSE ---
Call placed to Pts designated Health Care Agent to review medication list. Spoke with Syed Pearce @ [phone]. Per Syed, Pt used to be on Rx medications for BP and Eliquis however those medications have been d/c'd. Per Syed, Pt is no longer taking any Rx medications and only uses OTC Advil, Tylenol etc on an as needed basis. Syed advised Pts medical record will be updated to reflect this information.
--- NOTE | 2024-11-19 13:25 | PHA.MEDREC ---
Pharmacy Consult ? Medication Reconciliation Pharmacy has completed the medication reconciliation. Per previous note from Nikki patient takes no known home meds per HCP/family member.
--- NOTE | 2024-11-19 15:05 | PC.NURSE ---
Family at bedside for visit.
[2024-11-19 18:25] VITALS: BP 171/56; PULSE 58; RESP 16
[2024-11-19 19:22] VITALS: BP 171/56
[2024-11-19] MEDS: lisinopriL 20 MG TABLET PO (19:22)
--- NOTE | 2024-11-19 19:25 | PC.NURSE ---
This RN assumed pt care @ 1900. Pt alert to self, no signs of distress. Pt medicated per mar Med placed in applesauce, tolerated well. Pt denies pain at this time Plan of care ongoing.
--- NOTE | 2024-11-19 19:40 | PC.NURSE ---
Pt camera going off, Pt moving around in bed. Plan of care ongoing.
[2024-11-20 05:28] VITALS: BP 150/74; PULSE 56; RESP 16; TEMP 36.6; O2SAT 95
--- NOTE | 2024-11-20 06:09 | PC.NURSE ---
Pt remained calm and awake throughout the night. No sign of distress or agitation noted. Pt engaged in brief conversation, cooperative and pleasant. Video monitor at bedside. Bed alarm activated. Call paula within reach. Monitoring ongoing.
[2024-11-20 08:44] VITALS: BP 137/58; PULSE 58; RESP 18; TEMP 36.7; O2SAT 96
--- NOTE | 2024-11-20 08:45 | PC.NURSE ---
Assumed care of pt at 0700. Pt resting in bed quietly with eyes closed, respirations even and unlabored, no increased wob/sob noted, no signs of distress. Vitals updated in worklist, purewick in place and intact- pt dry/clean linens. Pt waiting on psych consult, call paula within reach, all needs met at this time.
--- NOTE | 2024-11-20 09:41 | MHC.CM.ED ---
Patient remains in ER. Psych consult ordered and pending. Sima linotype worker aware. Continue to monitor for d/c needs.
--- NOTE | 2024-11-20 13:02 | MHC.CM.ED ---
Attempted to meet with patient in regards to discharge planning. Patient is confused. Attempted to speak with patient's son, Gene, via telephone at [phone]. Left voicemail requesting return telephone call. Continue to monitor for d/c needs.
--- NOTE | 2024-11-20 13:35 | PC.NURSE ---
Pt sitting up in bed eating lunch. Repositioned off R hip. Purewick in place- dry and intact, call paula within reach.
--- NOTE | 2024-11-20 14:00 | MHC.CM.ED ---
Received returned telephone call from patient's son, Gene. Per Gene, patient has been increasingly confused. She has no short term memory and appears to be talking to people that are not there. Patient has never been formally diagnosed with dementia. However, Gene feels patient likely has dementia. Discharge planning discussed with Gene. Information on LTC care home provided. [facility] have [facility] and still has a home in her name. Patient also has savings in the bank. Gene is not interested in LTC at this time. However, is agreeable to a list of SNF facilities being provided. List of SNF within 15 miles provided via email. Patient will stay overnight. [place] will transport patient home tomorrow when his brother is able to assist him. [facility] for SN will be re-started. Referral made to [facility] request to see if a cellophaner would be available so he can run errands and patient can still be safe. Continue to monitor for d/c needs.
--- NOTE | 2024-11-20 15:50 | MHC.CM.ED ---
Met with patient, son Syed and daughter in law. All updated on discharge plan of patient returning home tomorrow 11/21. Syed will speak with Gene about arranging a time to transport patient home. Gene and his feel patient needs more care at home. Information about assisted living and LTC provided. Gene works for the [employer] in [place]. He will reach out to some of his resources and speak to his brother about future care needs of his mother. Continue to monitor for d/c needs.
[2024-11-20 18:48] VITALS: BP 140/59; PULSE 72; RESP 14; O2SAT 94
[2024-11-20 20:22] VITALS: BP 135/49; PULSE 68; RESP 16; TEMP 36.4; O2SAT 95
--- NOTE | 2024-11-20 22:21 | MHC.EDTECH ---
pt now awake at this time, pt was found dry with no incontinent episodes, and is now sitting up in bed eating dinner tray on own. no complaints given at this time, call paula within reach
[2024-11-20 23:35] VITALS: BP 146/69; PULSE 81; RESP 16; TEMP 36.6; O2SAT 95
[2024-11-21 05:15] VITALS: BP 160/73; PULSE 67; RESP 16; TEMP 36.8; O2SAT 96
--- NOTE | 2024-11-21 08:56 | MHC.CM.ED ---
Patient remains in ER. Attempted to speak with patient's son/caregiver, Gene, via telephone at [phone]. Left message requesting return telephone call so discharge time can be arranged. Awaiting call back. Continue to monitor for d/c needs.
--- NOTE | 2024-11-21 10:42 | MHC.CM.ED ---
Spoke with patient's son, Gene, via telephone. Gene will be here at 12pm to transport patient home. Patient will go home with resumption of [facility]. Patient, Tamara LOPEZ and Mena ROSADO aware. Continue to monitor for d/c needs.
--- NOTE | 2024-11-21 11:10 | PC.NURSE ---
Report received from JESSICA Mcdonald. Taken over care at this time.
[2024-11-21 13:34] VITALS: BP 133/61; PULSE 65; RESP 14; TEMP 36.3; O2SAT 97
--- NOTE | 2024-11-21 13:45 | MHC.CM.ED ---
Patient's son, Gene at patient's bedside. Gene is concerned that patient is too weak to return home. Feels STR would be appropriate. Gene aware placement would potentially be privately paid. [place] agreeable to referral being broadcasted locally. Referral made via [facility]. Continue to monitor for d/c needs.
[2024-11-21 14:00] VITALS: BP 133/61; PULSE 65; RESP 18; O2SAT 97
[2024-11-21 14:07] VITALS: BP 133/61; PULSE 65; O2SAT 97
--- NOTE | 2024-11-21 14:17 | MHC.CM.ED ---
Met with Syed Mills and Syed's in regards to discharge planning. Patient will go home with [facility] tomorrow 11/22. Syed and Gene will be on-site at 3pm to get patient into their vehicle and then will transport patient home. [facility] aware d/c changed to tomorrow. Syed and Gene will call private pay home care agencies in order to arrange more private pay care at home for patient. Not interested in STR or LTC placement at this time. Heide LOPEZ and Mena ROSADO aware. Continue to monitor for d/c needs.
--- NOTE | 2024-11-21 18:34 | PC.NURSE ---
Pt. cleaned up, new linen, gown, blanket, and purewick placed on pt.
[2024-11-21 23:50] VITALS: BP 162/52; PULSE 66; RESP 16; TEMP 37.3; O2SAT 96
[2024-11-22 05:29] VITALS: BP 135/65; PULSE 62; RESP 16; TEMP 36.5; O2SAT 98
[2024-11-22 09:54] VITALS: BP 161/68; PULSE 61; RESP 14; TEMP 36.4
--- NOTE | 2024-11-22 10:25 | PC.NURSE ---
Pt awake. Pt changed and freshened up. Purewick working intermittently. Pt eating breakfast in bed.
[2024-11-22 14:26] VITALS: BP 159/72; RESP 16
[2024-11-22 14:48] VITALS: BP 159/72; PULSE 57; RESP 22; TEMP 36.5; O2SAT 96
== END 2024-11-22 17:00 | disposition home or self-care (01) ==
PROVIDERS: Emergency Provider Emergency Medicine; PCP Internal Medicine
DX: G31.84 Mild cognitive impairment of uncertain or unknown etiology (principal); J44.9 Chronic obstructive pulmonary disease, unspecified; I10 Essential (primary) hypertension; Z87.820 Personal history of traumatic brain injury; Z03.818 Encounter for observation for suspected exposure to other biological agents ruled out
CPT/HCPCS: 0241U; 70450; 80048; 80076; 81003; 83735; 84443; 84484; 85025; 93005; 97161; 99285

== ENCOUNTER → 2024-11-18 16:09 | Outpatient (BNV) | payer MEDICARE, OTHER, SELFPAY | PROVIDERS: Emergency Provider Emergency Medicine; PCP Internal Medicine; Visit Provider Internal Medicine | DX: R94.31 Abnormal electrocardiogram [ECG] [EKG] (principal); R41.82 Altered mental status, unspecified | CPT/HCPCS: 93010 ==

== ENCOUNTER → 2024-11-18 16:09 | Outpatient (BNV) | payer MEDICARE, OTHER, SELFPAY | PROVIDERS: Emergency Provider Emergency Medicine; PCP Internal Medicine; Visit Provider Specialist | DX: R42 Dizziness and giddiness (principal) | CPT/HCPCS: 70450 ==

== ENCOUNTER → 2024-12-04 23:59 | Outpatient (BNV) | payer MEDICARE, OTHER, SELFPAY | PROVIDERS: Visit Provider Internal Medicine | DX: J44.9 Chronic obstructive pulmonary disease, unspecified (principal); F03.B0 Unspecified dementia, moderate, without behavioral disturbance, psychotic disturbance, mood disturbance, and anxiety; I87.2 Venous insufficiency (chronic) (peripheral) | CPT/HCPCS: G0180 ==

== ENCOUNTER 2024-12-18 10:27 | Outpatient (AMB) | payer MEDICARE, OTHER, SELFPAY ==
--- NOTE | 2024-12-18 10:29 | A.OFFPC_ITS ---
Vital Signs 12/18/24 10:30 12/18/24 11:22 BMI Reason not done Patient refused/unable BP 150/78 H 144/76 H Blood Pressure Location Lt brachial Lt brachial Position Sitting Sitting Pulse 67 Pulse Source Pulse Oximeter Pulse Oximetry (%) 98 Oxygen Delivery Method Room Air Intake Visit Reasons: YASMIN DR Delarosa Intake Note: Patient is here for hospital discharge follow up. Patient was discharged from [facility] in [place], [place] on approx 11/22/2024. Forensic Pathologist Required: No Accompanied by: [id number] Allergies Penicillins [PENICILLINS] Allergy (Intermediate, Verified 12/18/24 10:53) RASH halothane [HALOTHANE] Adverse Reaction (Intermediate, Verified 12/18/24 10:53) ELEVATED LIVER ENZYMES Medication List - Last Reconciled 12/18/24 by CAMPBELL [place] acetaminophen ER (Tylenol Arthritis Pain) 1,300 mg PO Q8H Tobacco use date assessed: 12/18/24 Fall risk assessment: 2 + Falls in past year Last assessed Fall Risk: 12/18/24 Dental Screening Dental Screen Date: 12/18/24 Did you have a dental visit in the last 12 months?: No Did you have a dental problem in the last 6 months where you did not have access to dental care?: No Was dental information given to patient?: No HPI YASMIN DR Delarosa HPI Details The patient is an 84-year-old female presenting YASMIN from Dr. Delarosa, who retired. Here for evaluation of lower extremity pain and ongoing cognitive decline. Reports indicate chronic pain in both knees, particularly in the right knee, exacerbated by past episodes of cellulitis affecting primarily the left leg. This condition has been linked to an immobility incident resulting in a fall, an elbow injury, and a brain hemorrhage roughly six months ago. Her medical history illustrates a significant impact from past orthopedic procedures due to a femur fracture addressed a decade ago with a titanium implantation. Prior occurrence of a deep vein thrombosis in the left lower extremity led to further complications, including a resolved episode of cellulitis, following treatment protocols and application of wound care strategies. Onset of dementia-like symptoms correlates strongly with the episode of trauma and hospitalization. The family has observed progressive memory loss extending over several years, with exacerbation following trauma, indicative of a cognitive decline spectrum possibly categorized as dementia. The patient also spent 3 months the SNF and has a visiting nurse coming the home at this point. Family is asking for assistance with rides to get to appointments [facility] Medical History Acute deep vein thrombosis of left lower extremity Hypertension COPD (chronic obstructive pulmonary disease) Allergic rhinitis Surgical History No history of previous surgery Family History Mother No problems noted. Father No problems noted. Social History Household Members: Children Housing: House Do you presently have visiting nurse or other home services: Yes Alcohol intake: never Patient Tobacco Use Status: Never used Tobacco Tobacco use type: Cigarette e-Cigarette/Vaping Use: Never Used Second Hand Smoke Exposure: No service: No Current occupational status: retired Cognitive needs: Yes (Walker, cane, wheelchair) Hearing needs: No Vision needs: Yes (reading glasses) Questionnaire PHQ-9 Over the last 2 weeks, how often have you been bothered by any of the following problems? 19473 - PHQ-9 Billing: Patient declined-do not bill Source: Developed by Drs. Boston Morris, Kayla Levi, Jonah Matthews and colleagues, with an educational camacho from [employer]. Thrive Questionnaire Date Thrive assessed: 12/18/24 I am a: Parent/Caregiver What is your living situation today?: I have a steady place to live Within the past 12 months, did the food you bought not last and you didn't have the money to get more?: Never true Within the past 12 months, did you worry whether your food would run out before you got money to buy more?: Never true Do you have trouble paying for medicines?: No Do you have trouble getting transportation to medical appointments?: No Do you have trouble paying your heating and electricity bill?: No Do you have trouble taking care of your child, family member or friend?: I choose not to answer this question Do you have trouble with day-to-day activities such as bathing, preparing meals, shopping, managing finances, etc.?: I choose not to answer this question Are you currently unemployed and looking for a job?: No Are you interested in more education?: No Please select the resources that you would like help with: None Currently or been in a relationship where the following occur: No concerns reported THRIVE Score: 0 AUDIT C Alcohol Use Questionnaire (AUDIT-C) 1. How often do you have a drink containing alcohol?: Never Total Score: 0 Score Reviewed/Action Taken: No SALVADOR-7 AMB Questionnaire SALVADOR-7 Date SALVADOR - 7 assessed: 08/17/24 Source: Developed by Drs. Boston Morris, Kayla Levi, Jonah Matthews and colleagues, with an educational camacho from [employer]. Review of Systems Const Denies headache(s) Eyes Denies loss of vision ENT Denies vertigo, Denies dizziness, Denies headache(s) and Denies sore throat Card Denies chest pain, Denies leg edema and Denies lightheadedness Resp Denies cough, Denies hemoptysis and Denies wheezing GI Denies abdominal pain, Denies melena, Denies constipation, Denies diarrhea and Denies vomiting Denies urinary frequency, Denies dysuria and Denies urinary urgency Musc Reports arthralgias (bilateral knees, right worse), Reports joint swelling (bilateral knees, worse in right), Denies numbness and Denies tingling Neuro Denies Abnormal speech present, Reports behavioral changes, Denies vertigo, Denies dizziness, Denies headache(s), Denies loss of vision, Reports memory loss (short term), Denies numbness and Denies tingling Psych Denies anxiety, Reports behavioral changes, Denies depression, Reports memory loss (short term) and Denies panic attacks Martin/Lymph Denies easy bleeding and Denies easy bruising Aller/Immun Denies wheezing Physical exam (Primary Care) Vital Signs: Last Vital Signs Pulse 67 12/18/24 10:30 BP 144/76 H 12/18/24 11:22 Pulse Ox 98 12/18/24 10:30 Oxygen Delivery Method Room Air 12/18/24 10:30 Tobacco/Smoking Status: Tobacco use Status Tobacco use date assessed 12/18/24 12/18/24 10:36 Patient Tobacco Use Status Never used Tobacco 12/18/24 10:36 Tobacco use type Cigarette 12/18/24 10:36 e-Cigarette/Vaping Use Never Used 12/18/24 10:36 Thrive Assessment: Date of Thrive Assessment Date Thrive assessed 12/18/24 12/18/24 10:44 Currently or been in a relationship where the following occur: No concerns reported Const General: healthy appearing, no acute distress, alert and awake Nutritional Appearance: well nourished Orientation/consciousness: oriented to person and oriented to place HENMT Ears: external ears normal General nose exam: Normal external nose present Eyes Conjunctivae: conjunctivae normal Sclerae: sclerae normal Pupils: Equal, round and reactive pupils present Neck Neck: Yes no lymphadenopathy Thyroid: Thyroid normal Carotids: no bruits Resp Effort & Inspection: normal respiratory effort and not tachypneic Auscultation: no crackles, no rales, no rhonchi and no wheezes Cardio Rate: regular rate Rhythm: regular rhythm Heart sounds: no murmurs and normal S1 and S2 GI Palpation (GI): Soft to palpation and nontender Auscultation: normal bowel sounds General: Yes no CVA tenderness Back/Spine/Pelvis Back: no CVA tenderness Skin General skin exam: dry skin (lower legs) Wounds: wounds noted (left lower leg scabbed-over area, leia-wound mildly reddened) Neuro General: oriented to person and oriented to place Cranial nerves: Yes Equal, round and reactive pupils present Speech: No Abnormal speech present Gait exam (Neuro): Assisted gait required Gait assisted method: wheelchair bound Motor exam (neuro): no tremor noted Extrem Right upper extremity: full ROM Left upper extremity: full ROM Right lower extremity: full ROM, edema Details: pitting and 1+ and knee Details: swelling; no tenderness Left lower extremity: full ROM, edema Details: 1+ and knee Details: swelling; no tenderness Psych Mental Status: mental status grossly normal Speech and movement: Normal speech and movement present Affect: normal affect Attitude: cooperative Thought process: Normal thought process present Results Reviewed Results Reviewed: Laboratory Tests 11/18/24 11/18/24 16:52 17:24 WBC 8.9 RBC 4.47 Hgb 13.9 Hct 41.8 MCV 93.5 MCH 31.1 MCHC 33.3 RDW 13.1 Plt Count 270 Sodium 143 Potassium 3.5 Chloride 109 H Carbon Dioxide 27 Anion Gap 11 L BUN 14 Creatinine 0.71 Estimated GFR > 60 Random Glucose 87 Calcium 9.1 Magnesium 1.9 Total Bilirubin 0.8 Direct Bilirubin 0.3 AST 22 ALT 6 Alkaline Phosphatase 62 Troponin I High Sens 14.0 Total Protein 6.1 L Albumin 3.9 TSH 0.98 Urine Color Yellow Urine Appearance Clear Urine pH 8.0 Ur Specific Success 1.010 Urine Protein Negative Urine Glucose (UA) Negative Urine Ketones Negative Urine Blood Negative Urine Nitrite Negative Ur Leukocyte Esterase Negative Coding Level of Care Code Est Pt Level 4 (27300) Diagnoses Memory impairment R41.3 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 F06.71 Dry skin L85.3 Insomnia, unspecified type G47.00 Insomnia type: unspecified Chronic pain of both knees M25.561; M25.562; G89.29 Chronicity: chronic Time Spent (min) 43 Assessment & Plan Assessment & Plan (1) Memory impairment: Code(s): R41.3 - Other amnesia Category: Medical (2) 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: Code(s): F06.71 - 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 Category: Medical (3) Dry skin: Code(s): L85.3 - Xerosis cutis Category: Medical (4) Insomnia: Code(s): G47.00 - Insomnia, unspecified Category: Medical Qualifiers: Insomnia type: unspecified Qualified Code(s): G47.00 - Insomnia, unspecified (5) Bilateral knee pain: Code(s): M25.561 - Pain in right knee; M25.562 - Pain in left knee Category: Medical Qualifiers: Chronicity: chronic Qualified Code(s): M25.561 - Pain in right knee; M25.562 - Pain in left knee; G89.29 - Other chronic pain Plan A thorough management plan was established focusing on the patient's bilateral knee pain and cognitive concerns. Utilizing a topical NSAID for knee joint inflammation was initiated, and a follow-up with an orthopedist is arranged for more direct interventions. For cognitive health, a neurology referral aims to elucidate potential dementia progression, while trazodone will assist in mitigating nighttime agitation. Dietary adjustments promoting potassium intake were recommended along with organizing efficient transport for medical visits. Patient was informed and verbally consented to the use of an ambient scribe for clinic note documentation during this visit. Orders: Orders Lipid Panel 6 Months G47.00 - Insomnia, unspecified, M25.561 - Pain in right knee, M25.562 - Pain in left knee, Z00.00 - Encounter for general adult medical examination without abnormal findings TSH reflex Free T4 6 Months G47.00 - Insomnia, unspecified, M25.561 - Pain in right knee, M25.562 - Pain in left knee, Z00.00 - Encounter for general adult medical examination without abnormal findings Glucose Fasting 6 Months G47.00 - Insomnia, unspecified, M25.561 - Pain in right knee, M25.562 - Pain in left knee, Z00.00 - Encounter for general adult medical examination without abnormal findings Complete Blood Count Auto Diff 6 Months G47.00 - Insomnia, unspecified, M25.561 - Pain in right knee, M25.562 - Pain in left knee, Z00.00 - Encounter for general adult medical examination without abnormal findings Comprehensive [place]. Panel Fast 6 Months G47.00 - Insomnia, unspecified, M25.561 - Pain in right knee, M25.562 - Pain in left knee, Z00.00 - Encounter for general adult medical examination without abnormal findings UA CC w/rflx Micro + Cult 6 Months G47.00 - Insomnia, unspecified, M25.561 - Pain in right knee, M25.562 - Pain in left knee, Z00.00 - Encounter for general adult medical examination without abnormal findings Vitamin D 25-OH Total 6 Months G47.00 - Insomnia, unspecified, M25.561 - Pain in right knee, M25.562 - Pain in left knee, Z00.00 - Encounter for general adult medical examination without abnormal findings Referrals Neurology Referral F06.71 - 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 - Maintain a diet rich in potassium, such as bananas due to low normal potassium. - Attend scheduled orthopedic and neurology appointments. - Monitor and report any new or worsening symptoms. - Ensure to rest the legs elevated during the day to aid swelling and comfort. - Take trazodone as directed to help with sleep disturbances at night.
[2024-12-18 10:30] VITALS: BP 150/78; PULSE 67; O2SAT 98
[2024-12-18 11:22] VITALS: BP 144/76
--- OUTSIDE RECORDS SUMMARY | 2024-12-18 11:39 | XMS_ITS | Encounter Summary ---
Author Organization [facility] Address [address] [place] [address] Care Team Providers Care Rehabilitation Therapy Technician Name Role Phone Federico Bowman MD Primary Care Provider [phone] Encounter Details Date Type Department Care Team (Late st Contact Info) Description 07/24/2024 Lab Requisition [facility] [address] [facility] [place] [address] Federico Bowman MD [address] [place] [address] Essential (primary) hypertension Social History Tobacco Use Types Packs/Day Years Used Date Smoking Tobacco: Never Assessed Comments Unknown Sex and Gender Information Value Date Recorded Sex Assigned at Not on file Legal Sex Female 5:36 PM EST Gender Identity Not on file Sexual Orientation [...] LAB CHEMISTRY METHOD 07/26/2024 11:58 AM EST [facility] Potassium 4.3 3.5 - 5.5 mmol/L LAB CHEMISTRY METHOD 07/26/2024 11:58 AM EST [facility] Chloride 109 96 - 110 mmol/L LAB CHEMISTRY METHOD 07/26/2024 11:58 AM [facility] CO2 26 21 - 32 mmol/L LAB CHEMISTRY METHOD 07/26/2024 11:58 AM [facility] Anion Gap 6 3 - 11 LAB CHEMISTRY METHOD 07/26/2024 11:58 AM [facility] Glucose 71 70 - 100 mg/dL LAB CHEMISTRY METHOD 07/26/2024 11:58 AM [facility] BUN 15 5 - 25 mg/dL LAB CHEMISTRY METHOD 07/26/2024 11:58 AM [facility] Creatinine 0.78 0.50 - 1.10 mg/dL LAB CHEMISTRY METHOD 07/26/2024 11:58 AM [facility] eGFR 75 >=60 mL/min/1. 73m2 LAB CHEMISTRY METHOD 07/26/2024 11:58 AM [facility] Comment:Calculation based on the??Chronic Kidney Disease Epidemiology Collaboration (CKD-EPI) equation refit??without adjustment for race. BUN/Creatinine Ratio 19.2 LAB CHEMISTRY METHOD 07/26/2024 11:58 AM [facility] Calcium 8.2(L) 8.5 - 10.5 mg/dL LAB CHEMISTRY METHOD 07/26/2024 11:58 AM [facility] Blood Venous blood specimen / Unknown Venipuncture / Unknown 07/26/2024 5:09 AM EST 07/26/2024 11:23 AM EST us Federico Bowman MD LAB BLOOD ORDERABLES Final Resu lt [facility] [address] [place] [address], * (ABNORMAL) Complete blood count (07/26/2024 5:09 AM EST) WBC 3.6(L) 4.8 - 10.8 K/mcL LAB HEMETOLOGY METHOD 07/26/2024 11:34 AM [facility] RBC 3.50(L) 3.80 - 4.80 M/[facility] LAB HEMETOLOGY METHOD 07/26/2024 11:34 AM [facility] Hemoglobin 10.8(L) 11.5 - 16.0 g/dL LAB HEMETOLOGY METHOD 07/26/2024 11:34 AM [facility] Hematocrit 34.6(L) 35.0 - 47.0 % LAB HEMETOLOGY METHOD 07/26/2024 11:34 AM [facility] MCV 98.6(H) 79.0 - 98.0 FL LAB HEMETOLOGY METHOD 07/26/2024 11:34 AM [facility] MCH 30.8 27.0 - 32.0 pcg LAB HEMETOLOGY METHOD 07/26/2024 11:34 AM [facility] MCHC 31.2(L) 32.0 - 37.0 g/dL LAB HEMETOLOGY METHOD 07/26/2024 11:34 AM [facility] RDW 14.8 11.0 - 15.0 % LAB HEMETOLOGY METHOD 07/26/2024 11:34 AM [facility] Platelets 268 130 - 400 K/[facility] LAB HEMETOLOGY METHOD 07/26/2024 11:34 AM [facility] MPV 10.8 7.0 - 11.0 FL LAB HEMETOLOGY METHOD 07/26/2024 11:34 AM [facility] NRBC 0.0 <1.0 % LAB HEMETOLOGY METHOD 07/26/2024 11:34 AM [facility] NRBC Absolute 0.00 <0.10 K/mcL LAB HEMETOLOGY METHOD 07/26/2024 11:34 AM [facility] Blood Venous blood specimen / Unknown Venipuncture / Unknown 07/26/2024 5:09 AM EST 07/26/2024 11:14 AM EST Federico Bowman MD LAB BLOOD ORDERABLES Final Resu lt [facility] [address] [place] [address], documented in this encounter Visit Diagnoses Diagnosis Essential (primary) hypertension Unspecified essential hypertension documented in this encounter Care Teams Rehabilitation Therapy Technician Relationship Specialty Start Date End Date Federico Bowman MD [address] [place] [address] PCP - General Internal Medicine 07/04/24 documented as of this encounter
--- OUTSIDE RECORDS SUMMARY | 2024-12-18 11:39 | XMS_ITS ---
Author Organization [facility] ([facility]) Care Team Providers Care Dermatologist And Dermatopathologist Name Role Phone Boston De Jesus Jr. Unavailable Unavailable Allergies and adverse reactions Code CodeSystem Substance Reaction Severity StartDate Concern Status Ambien Unknown 08/09/2020 active Care Team Name Role Address Phone Organization Dates Boston De Jesus Jr. PCP [facility] [facility], [place], [address], [place] (Office): : [facility] (SNF) 08/04/2020 - 09/05/2020 Immunizations Immunization Status Vaccine Details Vaccine Code CodeSystem Date Notes SARS-COV-2 (COVID-19) completed Given intramuscularly Step 2 of Multi-step with next step required created date: 09/04/2020 consent date: 09/04/2020 administere d date: 09/04/2020 SARS-COV-2 (COVID-19) new created date: 08/23/2020 consent date: 08/23/2020 Mental Status Section Date Assessment Total Score Description 09/05/2020 BIMS 01 severe cognitiv e impairment CAM 0 No delirium ind icated PHQ-9 00 08/10/2020 BIMS 00 severe cognitiv e impairment CAM 2 Delirium indica ashley PHQ-9 01 minimal depress ion Problems Problem # Description Date of onset Resolved Date Code CodeSystem Concern Status 1 COVID-19 08/03/[address] active 2 DEMENTIA IN OTHER DISEASES CLASSIFIED ELSEWHERE, UNSPECIFIED SEVERITY, WITHOUT BEHAVIORAL DISTURBANCE, PSYCHOTIC DISTURBANCE, MOOD DISTURBANCE, AND ANXIETY 08/03/[address] active 3 ESSENTIAL (PRIMARY) HYPERTENSION 08/03/[address] active 4 HISTORY OF FALLING 08/03/[address] active 5 HYPERLIPIDEMIA, UNSPECIFIED 08/03/[address] active 6 MAJOR DEPRESSIVE DISORDER, RECURRENT, MILD 08/03/[address] active 7 OTHER NONSPECIFIC ABNORMAL FINDING OF LUNG FIELD 08/03/[address] active 8 OTHER PULMONARY EMBOLISM WITHOUT ACUTE COR PULMONALE 08/03/[address] active 9 PNEUMONIA, UNSPECIFIED ORGANISM 08/03/[address] active Reason for Referral No Reasons for Referral Entered Social History Social History Observation Description Start Date End Date Code Code System Current Smoking Status Tobacco smoking consumption unknown 409651157 SNOMED CT Sex Assigned At Female 1940 94766-5 [facility] Gender Identity Vital Signs Code Code System Vitals Name Values and Units Timing Information 8310-5 [facility] Body Temperature Value=97.3 Units=?? F 09/05/2020 8462-4 LOINC Blood Pressure-Diastolic Value=76 Un its=mmHg 09/05/2020 8480-6 LOINC Blood Pressure-Systolic Qrmzw=373 Un its=mmHg 09/05/2020 8867-4 INC Heart rate Value=70.0 Units=/min 11/2020 22227-7 [facility] O2 % BldC Oximetry Value=98.0 Units= % 09/05/2020 9279-1 LOINC Respiratory Rate Value=20.0 Units=/m in 09/05/2020 05237-7 LOINC Pain Level Value=0.0 09/04/2020 70612-1 LOINC Weight Gxwyi=892.0 Units=Lbs 09/2020 8302-2 LOINC Height Value=66.0 Units=Inches 08/07/2020
--- OUTSIDE RECORDS SUMMARY | 2024-12-18 11:39 | XMS_ITS | Encounter Summary ---
Author Organization [facility] Address [address] [place] [address] Care Team Providers Care Janitor Name Role Phone Federico Bowman MD Primary Care Provider [phone] Encounter Details Date Type Department Care Team (Late st Contact Info) Description 07/13/2024 Lab Requisition [facility] - Main Lab [address] [facility] [place] [address] Federico Bowman MD [address] [place] [address] Essential (primary) hypertension Social History [...] LAB CHEMISTRY METHOD 07/16/2024 11:41 AM EST [facility] LAB Potassium 4.2 3.5 - 5.5 mmol/L LAB CHEMISTRY METHOD 07/16/2024 11:41 AM EST [facility] LAB Chloride 111(H) 96 - 110 mmol/L LAB CHEMISTRY METHOD 07/16/2024 11:41 AM [facility] LAB CO2 25 21 - 32 mmol/L LAB CHEMISTRY METHOD 07/16/2024 11:41 AM [facility] LAB Anion Gap 9 3 - 11 LAB CHEMISTRY METHOD 07/16/2024 11:41 AM [facility] LAB Glucose 79 70 - 100 mg/dL LAB CHEMISTRY METHOD 07/16/2024 11:41 AM [facility] LAB BUN 15 5 - 25 mg/dL LAB CHEMISTRY METHOD 07/16/2024 11:41 AM [facility] LAB Creatinine 0.77 0.50 - 1.10 mg/dL LAB CHEMISTRY METHOD 07/16/2024 11:41 AM [facility] LAB eGFR 76 >=60 mL/min/1. 73m2 LAB CHEMISTRY METHOD 07/16/2024 11:41 AM [facility] LAB Comment:Calculation based on the??Chronic Kidney Disease Epidemiology Collaboration (CKD-EPI) equation refit??without adjustment for race. BUN/Creatinine Ratio 19.5 LAB CHEMISTRY METHOD 07/16/2024 11:41 AM [facility] LAB Calcium 8.6 8.5 - 10.5 mg/dL LAB CHEMISTRY METHOD 07/16/2024 11:41 AM [facility] LAB AST (SGOT) 12 10 - 42 unit/L LAB CHEMISTRY METHOD 07/16/2024 11:41 AM [facility] LAB ALT (SGPT) 20 10 - 60 unit/L LAB CHEMISTRY METHOD 07/16/2024 11:41 AM [facility] LAB Alkaline Phosphatase 92 42 - 121 unit/L LAB CHEMISTRY METHOD 07/16/2024 11:41 AM [facility] LAB Total Protein 5.1(L) 6.0 - 8.0 g/dL LAB CHEMISTRY METHOD 07/16/2024 11:41 AM [facility] LAB Albumin 2.6(L) 3.2 - 5.0 g/dL LAB CHEMISTRY METHOD 07/16/2024 11:41 AM EST [facility] LAB Total Bilirubin 0.3 0.0 - 1.4 mg/dL LAB CHEMISTRY METHOD 07/16/2024 11:41 AM [facility] LAB Blood Venous blood specimen / Unknown Venipuncture / Unknown 07/16/2024 5:08 AM EST 07/16/2024 10:15 AM EST us Federico Bowman MD LAB BLOOD ORDERABLES Final Resu lt [facility] LAB [address] [place] [address], * (ABNORMAL) Complete blood count (07/16/2024 5:08 AM EST) WBC 6.9 4.8 - 10.8 K/mcL LAB HEMETOLOGY METHOD 07/16/2024 10:32 AM [facility] LAB RBC 3.50(L) 3.80 - 4.80 M/mcL LAB HEMETOLOGY METHOD 07/16/2024 10:32 AM [facility] LAB Hemoglobin 10.6(L) 11.5 - 16.0 g/dL LAB HEMETOLOGY METHOD 07/16/2024 10:32 AM [facility] LAB Hematocrit 34.3(L) 35.0 - 47.0 % LAB HEMETOLOGY METHOD 07/16/2024 10:32 AM [facility] LAB MCV 99.1(H) 79.0 - 98.0 FL LAB HEMETOLOGY METHOD 07/16/2024 10:32 AM [facility] LAB MCH 30.6 27.0 - 32.0 pcg LAB HEMETOLOGY METHOD 07/16/2024 10:32 AM [facility] LAB MCHC 30.9(L) 32.0 - 37.0 g/dL LAB HEMETOLOGY METHOD 07/16/2024 10:32 AM EST [facility] LAB RDW 14.1 11.0 - 15.0 % LAB HEMETOLOGY METHOD 07/16/2024 10:32 AM EST [facility] LAB Platelets 315 130 - 400 K/mcL LAB HEMETOLOGY METHOD 07/16/2024 10:32 AM EST [facility] LAB MPV 10.7 7.0 - 11.0 FL LAB HEMETOLOGY METHOD 07/16/2024 10:32 AM EST [facility] LAB NRBC 0.0 <1.0 % LAB HEMETOLOGY METHOD 07/16/2024 10:32 AM EST [facility] LAB NRBC Absolute 0.00 <0.10 K/mcL LAB HEMETOLOGY METHOD 07/16/2024 10:32 AM [facility] LAB Blood Venous blood specimen / Unknown Venipuncture / Unknown 07/16/2024 5:08 AM EST 07/16/2024 10:12 AM EST us Federico Bowman MD LAB BLOOD ORDERABLES Final Resu lt [facility] LAB [address] [place] [address], documented in this encounter Visit Diagnoses Diagnosis Essential (primary) hypertension Unspecified essential hypertension documented in this encounter Care Teams Janitor Relationship Specialty Start Date End Date Federico Bowman MD [address] [place] [address] PCP - General Internal Medicine 07/04/24 documented as of this encounter
--- OUTSIDE RECORDS SUMMARY | 2024-12-18 11:39 | XMS_ITS | Encounter Summary ---
Author Organization [facility] Address [address] [place] [address] Care Team Providers Care Cloth Shrinking Machine Operator Helper Name Role Phone Federico Bowman MD Primary Care Provider [phone] Encounter Details Date Type Department Care Team (Late st Contact Info) Description 07/04/2024 Lab Requisition [facility] - Main Lab [address] [facility] [place] [address] Federico Bowman MD [address] [place] [address] Essential (primary) hypertension Social History [...] LAB CHEMISTRY METHOD 07/05/2024 8:56 AM EST [facility] LAB Potassium 4.6 3.5 - 5.5 mmol/L LAB CHEMISTRY METHOD 07/05/2024 8:56 AM EST [facility] LAB Chloride 108 96 - 110 mmol/L LAB CHEMISTRY METHOD 07/05/2024 8:56 AM [facility] LAB CO2 28 21 - 32 mmol/L LAB CHEMISTRY METHOD 07/05/2024 8:56 AM [facility] LAB Anion Gap 5 3 - 11 LAB CHEMISTRY METHOD 07/05/2024 8:56 AM [facility] LAB Glucose 84 70 - 100 mg/dL LAB CHEMISTRY METHOD 07/05/2024 8:56 AM [facility] LAB BUN 15 5 - 25 mg/dL LAB CHEMISTRY METHOD 07/05/2024 8:56 AM [facility] LAB Creatinine 0.83 0.50 - 1.10 mg/dL LAB CHEMISTRY METHOD 07/05/2024 8:56 AM [facility] LAB eGFR 70 >=60 mL/min/1. 73m2 LAB CHEMISTRY METHOD 07/05/2024 8:56 AM [facility] LAB Comment:Calculation based on the??Chronic Kidney Disease Epidemiology Collaboration (CKD-EPI) equation refit??without adjustment for race. BUN/Creatinine Ratio 18.1 LAB CHEMISTRY METHOD 07/05/2024 8:56 AM [facility] LAB Calcium 8.8 8.5 - 10.5 mg/dL LAB CHEMISTRY METHOD 07/05/2024 8:56 AM [facility] LAB Blood Venous blood specimen / Unknown Venipuncture / Unknown 07/05/2024 4:57 AM EST 07/05/2024 8:14 AM EST us Federico Bowman MD LAB BLOOD ORDERABLES Final Resu lt [facility] LAB [address] [place] [address], * (ABNORMAL) Complete blood count (07/05/2024 4:57 AM EST) WBC 6.9 4.8 - 10.8 K/mcL LAB HEMETOLOGY METHOD 07/05/2024 8:31 AM [facility] LAB RBC 3.80 3.80 - 4.80 M/mcL LAB HEMETOLOGY METHOD 07/05/2024 8:31 AM [facility] LAB Hemoglobin 11.3(L) 11.5 - 16.0 g/dL LAB HEMETOLOGY METHOD 07/05/2024 8:31 AM [facility] LAB Hematocrit 36.6 35.0 - 47.0 % LAB HEMETOLOGY METHOD 07/05/2024 8:31 AM [facility] LAB MCV 97.1 79.0 - 98.0 FL LAB HEMETOLOGY METHOD 07/05/2024 8:31 AM [facility] LAB MCH 30.0 27.0 - 32.0 pcg LAB HEMETOLOGY METHOD 07/05/2024 8:31 AM [facility] LAB MCHC 30.9(L) 32.0 - 37.0 g/dL LAB HEMETOLOGY METHOD 07/05/2024 8:31 AM [facility] LAB RDW 13.4 11.0 - 15.0 % LAB HEMETOLOGY METHOD 07/05/2024 8:31 AM [facility] LAB Platelets 366 130 - 400 K/mcL LAB HEMETOLOGY METHOD 07/05/2024 8:31 AM [facility] LAB MPV 10.8 7.0 - 11.0 FL LAB HEMETOLOGY METHOD 07/05/2024 8:31 AM [facility] LAB NRBC 0.0 <1.0 % LAB HEMETOLOGY METHOD 07/05/2024 8:31 AM [facility] LAB NRBC Absolute 0.00 <0.10 K/mcL LAB HEMETOLOGY METHOD 07/05/2024 8:31 AM [facility] LAB Blood Venous blood specimen / Unknown Venipuncture / Unknown 07/05/2024 4:57 AM EST 07/05/2024 8:14 AM EST Federico Bowman MD LAB BLOOD ORDERABLES Final Resu lt [facility] [address] [place] [address], documented in this encounter Visit Diagnoses Diagnosis Essential (primary) hypertension Unspecified essential hypertension documented in this encounter Care Teams Cloth Shrinking Machine Operator Helper Relationship Specialty Start Date End Date Federico Bowman MD [address] [place] [address] PCP - General Internal Medicine 07/04/24 documented as of this encounter
--- OUTSIDE RECORDS SUMMARY | 2024-12-18 11:39 | XMS_ITS | Encounter Summary ---
Author Organization [facility] Address [address] [place] [address] Care Team Providers Care Drug Abuse Social Worker Name Role Phone Federico Bowman MD Primary Care Provider [phone] Encounter Details Date Type Department Care Team (Late st Contact Info) Description 07/11/2024 Lab Requisition [facility] - Main Lab 299 [facility] [email or web address] [address] Federico Bowman MD [address] [place] [address] Essential (primary) hypertension Social History [...] LAB CHEMISTRY METHOD 07/12/2024 9:45 AM EST [facility] Potassium 4.3 3.5 - 5.5 mmol/L LAB CHEMISTRY METHOD 07/12/2024 9:45 AM EST [facility] LAB Chloride 108 96 - 110 mmol/L LAB CHEMISTRY METHOD 07/12/2024 9:45 AM [facility] LAB CO2 29 21 - 32 mmol/L LAB CHEMISTRY METHOD 07/12/2024 9:45 AM [facility] LAB Anion Gap 5 3 - 11 LAB CHEMISTRY METHOD 07/12/2024 9:45 AM [facility] LAB Glucose 72 70 - 100 mg/dL LAB CHEMISTRY METHOD 07/12/2024 9:45 AM [facility] LAB BUN 12 5 - 25 mg/dL LAB CHEMISTRY METHOD 07/12/2024 9:45 AM [facility] LAB Creatinine 0.93 0.50 - 1.10 mg/dL LAB CHEMISTRY METHOD 07/12/2024 9:45 AM [facility] LAB eGFR 61 >=60 mL/min/1. 73m2 LAB CHEMISTRY METHOD 07/12/2024 9:45 AM [facility] LAB Comment:Calculation based on the??Chronic Kidney Disease Epidemiology Collaboration (CKD-EPI) equation refit??without adjustment for race. BUN/Creatinine Ratio 12.9 LAB CHEMISTRY METHOD 07/12/2024 9:45 AM [facility] LAB Calcium 9.1 8.5 - 10.5 mg/dL LAB CHEMISTRY METHOD 07/12/2024 9:45 AM [facility] LAB Blood Venous blood specimen / Unknown 07/12/2024 5:10 AM EST 07/12/2024 9:10 AM EST us Federico Bowman MD LAB BLOOD ORDERABLES Final Resu lt [facility] LAB [address] [place] [address], * (ABNORMAL) Complete blood count (07/12/2024 5:10 AM EST) WBC 5.6 4.8 - 10.8 K/mcL LAB HEMETOLOGY METHOD 07/12/2024 9:22 AM [facility] LAB RBC 3.80 3.80 - 4.80 M/mcL LAB HEMETOLOGY METHOD 07/12/2024 9:22 AM [facility] LAB Hemoglobin 11.5 11.5 - 16.0 g/dL LAB HEMETOLOGY METHOD 07/12/2024 9:22 AM [facility] LAB Hematocrit 37.1 35.0 - 47.0 % LAB HEMETOLOGY METHOD 07/12/2024 9:22 AM [facility] LAB MCV 97.9 79.0 - 98.0 FL LAB HEMETOLOGY METHOD 07/12/2024 9:22 AM [facility] LAB MCH 30.3 27.0 - 32.0 pcg LAB HEMETOLOGY METHOD 07/12/2024 9:22 AM [facility] LAB MCHC 31.0(L) 32.0 - 37.0 g/dL LAB HEMETOLOGY METHOD 07/12/2024 9:22 AM [facility] LAB RDW 13.8 11.0 - 15.0 % LAB HEMETOLOGY METHOD 07/12/2024 9:22 AM [facility] LAB Platelets 313 130 - 400 K/mcL LAB HEMETOLOGY METHOD 07/12/2024 9:22 AM [facility] LAB MPV 10.2 7.0 - 11.0 FL LAB HEMETOLOGY METHOD 07/12/2024 9:22 AM [facility] LAB NRBC 0.0 <1.0 % LAB HEMETOLOGY METHOD 07/12/2024 9:22 AM [facility] LAB NRBC Absolute 0.00 <0.10 K/mcL LAB HEMETOLOGY METHOD 07/12/2024 9:22 AM [facility] LAB Blood Venous blood specimen / Unknown 07/12/2024 5:10 AM EST 07/12/2024 9:11 AM EST Federico Bowman MD LAB BLOOD ORDERABLES Final Resu lt [facility] [address] [place] [address], documented in this encounter Visit Diagnoses Diagnosis Essential (primary) hypertension Unspecified essential hypertension documented in this encounter Care Teams Drug Abuse Social Worker Relationship Specialty Start Date End Date Federico Bowman MD [address] [place] [address] PCP - General Internal Medicine 07/04/24 documented as of this encounter
--- OUTSIDE RECORDS SUMMARY | 2024-12-18 11:39 | XMS_ITS | Encounter Summary ---
Author Organization [facility] Address [address] [place] [address] Care Team Providers Care Papier Mache Molder Name Role Phone Federico Bowman MD Primary Care Provider [phone] Encounter Details Date Type Department Care Team (Late st Contact Info) Description 07/21/[address] [facility] - Main Lab 299 [facility] [place] [address] Federico Bowman MD [address] [place] [address] Essential (primary) hypertension Social History [...] LAB CHEMISTRY METHOD 07/23/2024 10:19 AM EST [facility] LAB Potassium 4.4 3.5 - 5.5 mmol/L LAB CHEMISTRY METHOD 07/23/2024 10:19 AM EST [facility] LAB Chloride 110 96 - 110 mmol/L LAB CHEMISTRY METHOD 07/23/2024 10:19 AM [facility] LAB CO2 29 21 - 32 mmol/L LAB CHEMISTRY METHOD 07/23/2024 10:19 AM [facility] LAB Anion Gap 4 3 - 11 LAB CHEMISTRY METHOD 07/23/2024 10:19 AM [facility] LAB Glucose 76 70 - 100 mg/dL LAB CHEMISTRY METHOD 07/23/2024 10:19 AM [facility] LAB BUN 16 5 - 25 mg/dL LAB CHEMISTRY METHOD 07/23/2024 10:19 AM [facility] LAB Creatinine 0.88 0.50 - 1.10 mg/dL LAB CHEMISTRY METHOD 07/23/2024 10:19 AM [facility] LAB eGFR 65 >=60 mL/min/1. 73m2 LAB CHEMISTRY METHOD 07/23/2024 10:19 AM [facility] LAB Comment:Calculation based on the??Chronic Kidney Disease Epidemiology Collaboration (CKD-EPI) equation refit??without adjustment for race. BUN/Creatinine Ratio 18.2 LAB CHEMISTRY METHOD 07/23/2024 10:19 AM [facility] LAB Calcium 9.1 8.5 - 10.5 mg/dL LAB CHEMISTRY METHOD 07/23/2024 10:19 AM [facility] LAB AST (SGOT) 12 10 - 42 unit/L LAB CHEMISTRY METHOD 07/23/2024 10:19 AM [facility] LAB ALT (SGPT) 12 10 - 60 unit/L LAB CHEMISTRY METHOD 07/23/2024 10:19 AM [facility] LAB Alkaline Phosphatase 84 42 - 121 unit/L LAB CHEMISTRY METHOD 07/23/2024 10:19 AM [facility] LAB Total Protein 5.3(L) 6.0 - 8.0 g/dL LAB CHEMISTRY METHOD 07/23/2024 10:19 AM [facility] LAB Albumin 2.7(L) 3.2 - 5.0 g/dL LAB CHEMISTRY METHOD 07/23/2024 10:19 AM EST [facility] LAB Total Bilirubin 0.4 0.0 - 1.4 mg/dL LAB CHEMISTRY METHOD 07/23/2024 10:19 AM [facility] LAB Blood Venous blood specimen / Unknown Venipuncture / Unknown 07/23/2024 5:10 AM EST 07/23/2024 9:38 AM EST us Federico Bowman MD LAB BLOOD ORDERABLES Final Resu lt [facility] LAB [address] [place] [address], * (ABNORMAL) Complete blood count (07/23/2024 5:10 AM EST) WBC 6.0 4.8 - 10.8 K/mcL LAB HEMETOLOGY METHOD 07/23/2024 9:52 AM [facility] LAB RBC 3.60(L) 3.80 - 4.80 M/mcL LAB HEMETOLOGY METHOD 07/23/2024 9:52 AM [facility] LAB Hemoglobin 11.1(L) 11.5 - 16.0 g/dL LAB HEMETOLOGY METHOD 07/23/2024 9:52 AM [facility] LAB Hematocrit 36.0 35.0 - 47.0 % LAB HEMETOLOGY METHOD 07/23/2024 9:52 AM [facility] LAB MCV 99.7(H) 79.0 - 98.0 FL LAB HEMETOLOGY METHOD 07/23/2024 9:52 AM [facility] LAB MCH 30.7 27.0 - 32.0 pcg LAB HEMETOLOGY METHOD 07/23/2024 9:52 AM [facility] LAB MCHC 30.8(L) 32.0 - 37.0 g/dL LAB HEMETOLOGY METHOD 07/23/2024 9:52 AM EST [facility] LAB RDW 14.4 11.0 - 15.0 % LAB HEMETOLOGY METHOD 07/23/2024 9:52 AM EST [facility] LAB Platelets 321 130 - 400 K/mcL LAB HEMETOLOGY METHOD 07/23/2024 9:52 AM [facility] LAB MPV 10.5 7.0 - 11.0 FL LAB HEMETOLOGY METHOD 07/23/2024 9:52 AM EST [facility] LAB NRBC 0.0 <1.0 % LAB HEMETOLOGY METHOD 07/23/2024 9:52 AM [facility] LAB NRBC Absolute 0.00 <0.10 K/mcL LAB HEMETOLOGY METHOD 07/23/2024 9:52 AM [facility] LAB Blood Venous blood specimen / Unknown Venipuncture / Unknown 07/23/2024 5:10 AM EST 07/23/2024 9:33 AM EST us Federico Bowman MD LAB BLOOD ORDERABLES Final Resu lt [facility] LAB [address] [place] [address], documented in this encounter Visit Diagnoses Diagnosis Essential (primary) hypertension Unspecified essential hypertension documented in this encounter Care Teams Papier Mache Molder Relationship Specialty Start Date End Date Federico Bowman MD [address] [place] [address] PCP - General Internal Medicine 07/04/24 documented as of this encounter
--- OUTSIDE RECORDS SUMMARY | 2024-12-18 11:39 | XMS_ITS | Encounter Summary ---
Author Organization [facility] Address [address] [place] [address] Care Team Providers Care Monorail Charger Operator Name Role Phone Federico Bowamn MD Primary Care Provider [phone] Encounter Details Date Type Department Care Team (Late st Contact Info) Description 07/08/2024 Lab Requisition [facility] - Main Lab 299 [facility] [place] [address] Federico Bowman MD [address] [place] [address] Essential (primary) hypertension Social History [...] AM EST) WBC 7.0 4.8 - 10.8 K/mcL LAB HEMETOLOGY METHOD 07/09/2024 9:54 AM EST [facility] LAB RBC 4.20 3.80 - 4.80 M/mcL LAB HEMETOLOGY METHOD 07/09/2024 9:54 AM EST [facility] LAB Hemoglobin 12.7 11.5 - 16.0 g/dL LAB HEMETOLOGY METHOD 07/09/2024 9:54 AM EST [facility] LAB Hematocrit 41.7 35.0 - 47.0 % LAB HEMETOLOGY METHOD 07/09/2024 9:54 AM [facility] LAB MCV 100.2(H) 79.0 - 98.0 FL LAB HEMETOLOGY METHOD 07/09/2024 9:54 AM [facility] LAB MCH 30.5 27.0 - 32.0 pcg LAB HEMETOLOGY METHOD 07/09/2024 9:54 AM EST [facility] LAB MCHC 30.5(L) 32.0 - 37.0 g/dL LAB HEMETOLOGY METHOD 07/09/2024 9:54 AM [facility] RDW 13.9 11.0 - 15.0 % LAB HEMETOLOGY METHOD 07/09/2024 9:54 AM [facility] LAB Platelets 406(H) 130 - 400 K/mcL LAB HEMETOLOGY METHOD 07/09/2024 9:54 AM EST [facility] LAB MPV 10.5 7.0 - 11.0 FL LAB HEMETOLOGY METHOD 07/09/2024 9:54 AM [facility] NRBC 0.0 <1.0 % LAB HEMETOLOGY METHOD 07/09/2024 9:54 AM [facility] LAB NRBC Absolute 0.00 <0.10 K/mcL LAB HEMETOLOGY METHOD 07/09/2024 9:54 AM [facility] LAB Blood Venous blood specimen / Unknown Venipuncture / Unknown 07/09/2024 4:55 AM EST 07/09/2024 9:16 AM EST us Federico Bowman MD LAB BLOOD ORDERABLES Final Resu lt [facility] LAB [address] [place] [address], documented in this encounter Visit Diagnoses Diagnosis Essential (primary) hypertension Unspecified essential hypertension documented in this encounter Care Teams Monorail Charger Operator Relationship Specialty Start Date End Date Federico Bowman MD [address] [place] [address] PCP - General Internal Medicine 07/04/24 documented as of this encounter
--- OUTSIDE RECORDS SUMMARY | 2024-12-18 11:39 | XMS_ITS | Encounter Summary ---
Author Organization [facility] Address [address] [place] [address] Care Team Providers Care Ichthyology Teacher Name Role Phone Federico Bowman MD Primary Care Provider [phone] Encounter Details Date Type Department Care Team (Late st Contact Info) Description 06/27/[address] [facility] - Main Lab 299 [facility] [place] [address] Federico Bowman MD [address] [place] [address] Essential (primary) hypertension Social History [...] LAB CHEMISTRY METHOD 06/27/2024 2:43 PM EST [facility] LAB Potassium 4.9 3.5 - 5.5 mmol/L LAB CHEMISTRY METHOD 06/27/2024 2:43 PM EST [facility] LAB Chloride 108 96 - 110 mmol/L LAB CHEMISTRY METHOD 06/27/2024 2:43 PM [facility] LAB CO2 26 21 - 32 mmol/L LAB CHEMISTRY METHOD 06/27/2024 2:43 PM [facility] Anion Gap 7 3 - 11 LAB CHEMISTRY METHOD 06/27/2024 2:43 PM [facility] Glucose 69(L) 70 - 100 mg/dL LAB CHEMISTRY METHOD 06/27/2024 2:43 PM [facility] BUN 16 5 - 25 mg/dL LAB CHEMISTRY METHOD 06/27/2024 2:43 PM [facility] Creatinine 0.86 0.50 - 1.10 mg/dL LAB CHEMISTRY METHOD 06/27/2024 2:43 PM [facility] LAB eGFR 67 >=60 mL/min/1. 73m2 LAB CHEMISTRY METHOD 06/27/2024 2:43 PM [facility] LAB Comment:Calculation based on the??Chronic Kidney Disease Epidemiology Collaboration (CKD-EPI) equation refit??without adjustment for race. BUN/Creatinine Ratio 18.6 LAB CHEMISTRY METHOD 06/27/2024 2:43 PM [facility] Calcium 8.7 8.5 - 10.5 mg/dL LAB CHEMISTRY METHOD 06/27/2024 2:43 PM [facility] AST (SGOT) 15 10 - 42 unit/L LAB CHEMISTRY METHOD 06/27/2024 2:43 PM [facility] ALT (SGPT) 14 10 - 60 unit/L LAB CHEMISTRY METHOD 06/27/2024 2:43 PM [facility] Alkaline Phosphatase 95 42 - 121 unit/L LAB CHEMISTRY METHOD 06/27/2024 2:43 PM [facility] Total Protein 5.8(L) 6.0 - 8.0 g/dL LAB CHEMISTRY METHOD 06/27/2024 2:43 PM [facility] Albumin 3.0(L) 3.2 - 5.0 g/dL LAB CHEMISTRY METHOD 06/27/2024 2:43 PM [facility] Total Bilirubin 0.8 0.0 - 1.4 mg/dL LAB CHEMISTRY METHOD 06/27/2024 2:43 PM [facility] Blood Venous blood specimen / Unknown Venipuncture / Unknown 06/27/2024 4:48 AM EST 06/27/2024 10:29 AM EST us Federico Bowman MD LAB BLOOD ORDERABLES Final Resu lt [facility] [address] [place] [address], * (ABNORMAL) Complete blood count (06/27/2024 4:48 AM EST) WBC 7.4 4.8 - 10.8 K/mcL LAB HEMETOLOGY METHOD 06/27/2024 10:39 AM [facility] RBC 4.10 3.80 - 4.80 M/mcL LAB HEMETOLOGY METHOD 06/27/2024 10:39 AM [facility] Hemoglobin 12.5 11.5 - 16.0 g/dL LAB HEMETOLOGY METHOD 06/27/2024 10:39 AM [facility] LAB Hematocrit 40.1 35.0 - 47.0 % LAB HEMETOLOGY METHOD 06/27/2024 10:39 AM [facility] MCV 98.0 79.0 - 98.0 FL LAB HEMETOLOGY METHOD 06/27/2024 10:39 AM [facility] MCH 30.6 27.0 - 32.0 pcg LAB HEMETOLOGY METHOD 06/27/2024 10:39 AM [facility] MCHC 31.2(L) 32.0 - 37.0 g/dL LAB HEMETOLOGY METHOD 06/27/2024 10:39 AM [facility] RDW 13.7 11.0 - 15.0 % LAB HEMETOLOGY METHOD 06/27/2024 10:39 AM EST [facility] LAB Platelets 371 130 - 400 K/mcL LAB HEMETOLOGY METHOD 06/27/2024 10:39 AM EST [facility] MPV 11.3(H) 7.0 - 11.0 FL LAB HEMETOLOGY METHOD 06/27/2024 10:39 AM EST [facility] NRBC 0.0 <1.0 % LAB HEMETOLOGY METHOD 06/27/2024 10:39 AM EST [facility] NRBC Absolute 0.00 <0.10 K/mcL LAB HEMETOLOGY METHOD 06/27/2024 10:39 AM EST [facility] Blood Venous blood specimen / Unknown Venipuncture / Unknown 06/27/2024 4:48 AM EST 06/27/2024 10:29 AM EST us Federico Bowman MD LAB BLOOD ORDERABLES Final Resu lt [facility] [address] [place] [address], documented in this encounter Visit Diagnoses Diagnosis Essential (primary) hypertension Unspecified essential hypertension documented in this encounter Care Teams Ichthyology Teacher Relationship Specialty Start Date End Date Federico Bowman MD [address] [place] [id number] PCP - General Internal Medicine 07/04/24 documented as of this encounter
--- OUTSIDE RECORDS SUMMARY | 2024-12-18 11:39 | XMS_ITS | Clinical Summary ---
Author Organization [address] [facility] Address [address] [place] [address] Phone Care Team Providers Care Claims Adjustor Name Role Phone Federico Bowman MD Primary Care Provider [phone] Social History Tobacco Use Types Packs/Day Years Used Date Smoking Tobacco: Never Assessed Comments Unknown Sex and Gender Information Value Date Recorded Sex Assigned at Not on file Legal Sex Female 5:36 PM EST Gender Identity Not on file Sexual Orientation Not on file Plan of Treatment Health Maintenance Due Date Last Done Comments DTaP,Tdap,and Td Vaccines (1 - Tdap) 1959 Pneumococcal Vaccine: 50+ Years (1 of 1 - PCV) 1990 Zoster Vaccines (1 of 2) 1990 RSV Immunization Adult Patients (1 - 1-dose 75+ series) 2015 COVID-19 Vaccine ( season) 2024 Cholesterol Screening (Lipid Panel) 06/27/2024 [...] patient's age to complete this topic Meningococcal B Vaccine Aged Out No l onger eligible based on patient's age to complete this topic RSV Immunization Patients Under 20 months Aged Out No longer eligible based on patient's age to complete this topic Varicella Vaccines Aged Out No longer eligible based on patient's age to complete this topic Procedures Procedure Name Priority Date/Time Associated Diagnosis Comments BASIC METABOLIC PANEL Routine 07/26/2024 5:09 AM EST Essential (primary) hypertension from Last 3 Months or Most Recently Relevant to Health Maintenance Results * (ABNORMAL) Basic metabolic panel (07/26/2024 5:09 AM EST) Sodium 141 133 - 145 mmol/L LAB CHEMISTRY METHOD 07/26/2024 11:58 AM [facility] Potassium 4.3 3.5 - 5.5 mmol/L LAB CHEMISTRY METHOD 07/26/2024 11:58 AM [facility] Chloride 109 96 - 110 mmol/L LAB CHEMISTRY METHOD 07/26/2024 11:58 AM [facility] CO2 26 21 - 32 mmol/L LAB CHEMISTRY METHOD 07/26/2024 11:58 AM [facility] Anion Gap 6 3 - 11 LAB CHEMISTRY METHOD 07/26/2024 11:58 AM [facility] Glucose 71 70 - 100 mg/dL LAB CHEMISTRY METHOD 07/26/2024 11:58 AM [facility] BUN 15 5 - 25 mg/dL LAB CHEMISTRY METHOD 07/26/2024 11:58 AM [facility] Creatinine 0.78 0.50 - 1.10 mg/dL LAB CHEMISTRY METHOD 07/26/2024 11:58 AM [facility] eGFR 75 >=60 mL/min/1. 73m2 LAB CHEMISTRY METHOD 07/26/2024 11:58 AM EST [facility] Comment:Calculation based on the??Chronic Kidney Disease Epidemiology Collaboration (CKD-EPI) equation refit??without adjustment for race. BUN/Creatinine Ratio 19.2 LAB CHEMISTRY METHOD 07/26/2024 11:58 AM EST [facility] Calcium 8.2(L) 8.5 - 10.5 mg/dL LAB CHEMISTRY METHOD 07/26/2024 11:58 AM EST [facility] Blood Venous blood specimen / Unknown Venipuncture / Unknown 07/26/2024 5:09 AM EST 07/26/2024 11:23 AM EST us Federico Bowman MD LAB BLOOD ORDERABLES Final Resu lt [facility] ([facility]) [facility] [address] [place] [address], from Last 3 Months or Most Recently Relevant to Health Maintenance Insurance MEDICARE [facility] [employer] Care Teams Claims Adjustor Relationship Specialty Start Date End Date Federico Bowman MD [address] [place] [id number] PCP - General Internal Medicine 07/04/24
--- OUTSIDE RECORDS SUMMARY | 2024-12-18 11:39 | XMS_ITS | Encounter Summary ---
Author Organization [facility] Address [address] [place] [address] Care Team Providers Care Valet Name Role Phone Federico Bowman MD Primary Care Provider [phone] Encounter Details Date Type Department Care Team (Late st Contact Info) Description 07/09/[address] [facility] - Main Lab [address] [facility] [place] [address] Federico Bowman MD [address] [place] [address] Essential (primary) hypertension Social History [...] LAB CHEMISTRY METHOD 07/10/2024 10:27 AM EST [facility] Potassium 4.3 3.5 - 5.5 mmol/L LAB CHEMISTRY METHOD 07/10/2024 10:27 AM EST [facility] Chloride 111(H) 96 - 110 mmol/L LAB CHEMISTRY METHOD 07/10/2024 10:27 AM EST [facility] CO2 28 21 - 32 mmol/L LAB CHEMISTRY METHOD 07/10/2024 10:27 AM [facility] Anion Gap 5 3 - 11 LAB CHEMISTRY METHOD 07/10/2024 10:27 AM [facility] Glucose 75 70 - 100 mg/dL LAB CHEMISTRY METHOD 07/10/2024 10:27 AM [facility] BUN 13 5 - 25 mg/dL LAB CHEMISTRY METHOD 07/10/2024 10:27 AM [facility] Creatinine 0.76 0.50 - 1.10 mg/dL LAB CHEMISTRY METHOD 07/10/2024 10:27 AM [facility] eGFR 77 >=60 mL/min/1. 73m2 LAB CHEMISTRY METHOD 07/10/2024 10:27 AM [facility] Comment:Calculation based on the??Chronic Kidney Disease Epidemiology Collaboration (CKD-EPI) equation refit??without adjustment for race. BUN/Creatinine Ratio 17.1 LAB CHEMISTRY METHOD 07/10/2024 10:27 AM [facility] Calcium 8.6 8.5 - 10.5 mg/dL LAB CHEMISTRY METHOD 07/10/2024 10:27 AM [facility] AST (SGOT) 10 10 - 42 unit/L LAB CHEMISTRY METHOD 07/10/2024 10:27 AM [facility] ALT (SGPT) 12 10 - 60 unit/L LAB CHEMISTRY METHOD 07/10/2024 10:27 AM [facility] Alkaline Phosphatase 91 42 - 121 unit/L LAB CHEMISTRY METHOD 07/10/2024 10:27 AM [facility] Total Protein 5.1(L) 6.0 - 8.0 g/dL LAB CHEMISTRY METHOD 07/10/2024 10:27 AM [facility] Albumin 2.7(L) 3.2 - 5.0 g/dL LAB CHEMISTRY METHOD 07/10/2024 10:27 AM [facility] Total Bilirubin 0.4 0.0 - 1.4 mg/dL LAB CHEMISTRY METHOD 07/10/2024 10:27 AM EST [facility] Blood Venous blood specimen / Unknown Venipuncture / Unknown 07/10/2024 4:56 AM EST 07/10/2024 9:43 AM EST us Federico Bowman MD LAB BLOOD ORDERABLES Final Resu lt [facility] [address] [place] [address], documented in this encounter Visit Diagnoses Diagnosis Essential (primary) hypertension Unspecified essential hypertension documented in this encounter Care Teams Valet Relationship Specialty Start Date End Date Federico Bowman MD [address] [place] [address] PCP - General Internal Medicine 07/04/24 documented as of this encounter
--- OUTSIDE RECORDS SUMMARY | 2024-12-18 11:39 | XMS_ITS | Encounter Summary ---
Author Organization [facility] Address [address] [place] [address] Care Team Providers Care Tibco Developer Name Role Phone Federico Bowman MD Primary Care Provider [phone] Encounter Details Date Type Department Care Team (Late st Contact Info) Description 06/29/2024 Lab Requisition [facility] - Main Lab [address] [facility] [place] [address] Federico Bowman MD [address] [place] [address] Essential (primary) hypertension Social History [...] LAB CHEMISTRY METHOD 07/02/2024 9:07 AM EST [facility] Potassium 4.7 3.5 - 5.5 mmol/L LAB CHEMISTRY METHOD 07/02/2024 9:07 AM EST [facility] Chloride 109 96 - 110 mmol/L LAB CHEMISTRY METHOD 07/02/2024 9:07 AM [facility] CO2 27 21 - 32 mmol/L LAB CHEMISTRY METHOD 07/02/2024 9:07 AM [facility] Anion Gap 7 3 - 11 LAB CHEMISTRY METHOD 07/02/2024 9:07 AM [facility] Glucose 81 70 - 100 mg/dL LAB CHEMISTRY METHOD 07/02/2024 9:07 AM [facility] BUN 14 5 - 25 mg/dL LAB CHEMISTRY METHOD 07/02/2024 9:07 AM [facility] Creatinine 0.82 0.50 - 1.10 mg/dL LAB CHEMISTRY METHOD 07/02/2024 9:07 AM [facility] eGFR 71 >=60 mL/min/1. 73m2 LAB CHEMISTRY METHOD 07/02/2024 9:07 AM [facility] Comment:Calculation based on the??Chronic Kidney Disease Epidemiology Collaboration (CKD-EPI) equation refit??without adjustment for race. BUN/Creatinine Ratio 17.1 LAB CHEMISTRY METHOD 07/02/2024 9:07 AM [facility] Calcium 8.8 8.5 - 10.5 mg/dL LAB CHEMISTRY METHOD 07/02/2024 9:07 AM [facility] AST (SGOT) 15 10 - 42 unit/L LAB CHEMISTRY METHOD 07/02/2024 9:07 AM [facility] ALT (SGPT) 14 10 - 60 unit/L LAB CHEMISTRY METHOD 07/02/2024 9:07 AM [facility] Alkaline Phosphatase 109 42 - 121 unit/L LAB CHEMISTRY METHOD 07/02/2024 9:07 AM [facility] Total Protein 5.4(L) 6.0 - 8.0 g/dL LAB CHEMISTRY METHOD 07/02/2024 9:07 AM [facility] Albumin 2.8(L) 3.2 - 5.0 g/dL LAB CHEMISTRY METHOD 07/02/2024 9:07 AM [facility] Total Bilirubin 0.5 0.0 - 1.4 mg/dL LAB CHEMISTRY METHOD 07/02/2024 9:07 AM [facility] Blood Venous blood specimen / Unknown Venipuncture / Unknown 07/02/2024 5:02 AM EST 07/02/2024 8:22 AM EST us Federico Bowman MD LAB BLOOD ORDERABLES Final Resu lt [facility] [address] [place] [address], [place] [phone] * (ABNORMAL) Complete blood count (07/02/2024 5:02 AM EST) WBC 7.2 4.8 - 10.8 K/mcL LAB HEMETOLOGY METHOD 07/02/2024 8:43 AM [facility] RBC 3.80 3.80 - 4.80 M/[facility] LAB HEMETOLOGY METHOD 07/02/2024 8:43 AM [facility] Hemoglobin 11.7 11.5 - 16.0 g/dL LAB HEMETOLOGY METHOD 07/02/2024 8:43 AM [facility] Hematocrit 37.5 35.0 - 47.0 % LAB HEMETOLOGY METHOD 07/02/2024 8:43 AM [facility] MCV 98.2(H) 79.0 - 98.0 FL LAB HEMETOLOGY METHOD 07/02/2024 8:43 AM [facility] MCH 30.6 27.0 - 32.0 pcg LAB HEMETOLOGY METHOD 07/02/2024 8:43 AM [facility] MCHC 31.2(L) 32.0 - 37.0 g/dL LAB HEMETOLOGY METHOD 07/02/2024 8:43 AM [facility] RDW 13.5 11.0 - 15.0 % LAB HEMETOLOGY METHOD 07/02/2024 8:43 AM EST [facility] Platelets 358 130 - 400 K/mcL LAB HEMETOLOGY METHOD 07/02/2024 8:43 AM EST [facility] MPV 10.8 7.0 - 11.0 FL LAB HEMETOLOGY METHOD 07/02/2024 8:43 AM EST [facility] NRBC 0.0 <1.0 % LAB HEMETOLOGY METHOD 07/02/2024 8:43 AM EST [facility] NRBC Absolute 0.00 <0.10 K/mcL LAB HEMETOLOGY METHOD 07/02/2024 8:43 AM EST [facility] Blood Venous blood specimen / Unknown Venipuncture / Unknown 07/02/2024 5:02 AM EST 07/02/2024 8:20 AM EST us Federico Bowman MD LAB BLOOD ORDERABLES Final Resu lt [facility] [address] [place] [address], documented in this encounter Visit Diagnoses Diagnosis Essential (primary) hypertension Unspecified essential hypertension documented in this encounter Care Teams Tibco Developer Relationship Specialty Start Date End Date Federico Bowman MD [address] [place] [address] PCP - General Internal Medicine 07/04/24 documented as of this encounter
--- OUTSIDE RECORDS SUMMARY | 2024-12-18 11:39 | XMS_ITS | Encounter Summary ---
Author Organization [facility] Address [address] [place] [address] Care Team Providers Care Oil Field Rig Builder Name Role Phone Federico Bowman MD Primary Care Provider [phone] Encounter Details Date Type Department Care Team (Late st Contact Info) Description 07/18/[address] [facility] - Main Lab [address] [facility] [email or web address] [address] Federico Bowman MD [address] [place] [address] Essential (primary) hypertension Social History [...] LAB CHEMISTRY METHOD 07/19/2024 1:05 PM EST [facility] Potassium 4.1 3.5 - 5.5 mmol/L LAB CHEMISTRY METHOD 07/19/2024 1:05 PM EST [facility] Chloride 108 96 - 110 mmol/L LAB CHEMISTRY METHOD 07/19/2024 1:05 PM [facility] CO2 30 21 - 32 mmol/L LAB CHEMISTRY METHOD 07/19/2024 1:05 PM [facility] Anion Gap 6 3 - 11 LAB CHEMISTRY METHOD 07/19/2024 1:05 PM [facility] Glucose 69(L) 70 - 100 mg/dL LAB CHEMISTRY METHOD 07/19/2024 1:05 PM [facility] BUN 16 5 - 25 mg/dL LAB CHEMISTRY METHOD 07/19/2024 1:05 PM [facility] Creatinine 0.82 0.50 - 1.10 mg/dL LAB CHEMISTRY METHOD 07/19/2024 1:05 PM [facility] eGFR 71 >=60 mL/min/1. 73m2 LAB CHEMISTRY METHOD 07/19/2024 1:05 PM [facility] Comment:Calculation based on the??Chronic Kidney Disease Epidemiology Collaboration (CKD-EPI) equation refit??without adjustment for race. BUN/Creatinine Ratio 19.5 LAB CHEMISTRY METHOD 07/19/2024 1:05 PM [facility] Calcium 9.1 8.5 - 10.5 mg/dL LAB CHEMISTRY METHOD 07/19/2024 1:05 PM [facility] Blood Venous blood specimen / Unknown Venipuncture / Unknown 07/19/2024 5:03 AM EST 07/19/2024 11:27 AM EST us Federico Bowman MD LAB BLOOD ORDERABLES Final Resu lt [facility] [address] [place] [address], * (ABNORMAL) Complete blood count (07/19/2024 5:03 AM EST) WBC 6.0 4.8 - 10.8 K/mcL LAB HEMETOLOGY METHOD 07/19/2024 12:41 PM [facility] RBC 4.00 3.80 - 4.80 M/mcL LAB HEMETOLOGY METHOD 07/19/2024 12:41 PM [facility] Hemoglobin 12.3 11.5 - 16.0 g/dL LAB HEMETOLOGY METHOD 07/19/2024 12:41 PM [facility] Hematocrit 40.1 35.0 - 47.0 % LAB HEMETOLOGY METHOD 07/19/2024 12:41 PM [facility] MCV 100.3(H) 79.0 - 98.0 FL LAB HEMETOLOGY METHOD 07/19/2024 12:41 PM [facility] MCH 30.8 27.0 - 32.0 pcg LAB HEMETOLOGY METHOD 07/19/2024 12:41 PM [facility] MCHC 30.7(L) 32.0 - 37.0 g/dL LAB HEMETOLOGY METHOD 07/19/2024 12:41 PM [facility] RDW 14.6 11.0 - 15.0 % LAB HEMETOLOGY METHOD 07/19/2024 12:41 PM [facility] Platelets 343 130 - 400 K/mcL LAB HEMETOLOGY METHOD 07/19/2024 12:41 PM [facility] MPV 10.4 7.0 - 11.0 FL LAB HEMETOLOGY METHOD 07/19/2024 12:41 PM [facility] NRBC 0.0 <1.0 % LAB HEMETOLOGY METHOD 07/19/2024 12:41 PM [facility] NRBC Absolute 0.00 <0.10 K/mcL LAB HEMETOLOGY METHOD 07/19/2024 12:41 PM [facility] Blood Venous blood specimen / Unknown Venipuncture / Unknown 07/19/2024 5:03 AM EST 07/19/2024 11:27 AM EST us Federico Bowman MD LAB BLOOD ORDERABLES [facility] [address] [place] [address], documented in this encounter Visit Diagnoses Diagnosis Essential (primary) hypertension Unspecified essential hypertension documented in this encounter Care Teams Oil Field Rig Builder Relationship Specialty Start Date End Date Federico Bowman MD [address] [place] [address] PCP - General Internal Medicine 07/04/24 documented as of this encounter
== END 2024-12-18 11:33 | disposition home or self-care (01) ==
LOC: HO.HMCH 10:27
DX: R41.3 Other amnesia (principal); F06.71 Mild neurocognitive disorder due to known physiological condition with behavioral disturbance; L85.3 Xerosis cutis; G47.00 Insomnia, unspecified; M25.561 Pain in right knee; M25.562 Pain in left knee; G89.29 Other chronic pain

== ENCOUNTER → 2024-12-18 10:27 | Outpatient (BNVA) | payer MEDICARE, OTHER, SELFPAY | DX: R41.3 Other amnesia (principal); F06.71 Mild neurocognitive disorder due to known physiological condition with behavioral disturbance; L85.3 Xerosis cutis; G47.00 Insomnia, unspecified; M25.561 Pain in right knee; M25.562 Pain in left knee; G89.29 Other chronic pain | CPT/HCPCS: 99212 ==

== ENCOUNTER 2025-01-03 11:15 | Outpatient (REF) | payer MEDICARE, OTHER, SELFPAY ==
--- NOTE | ~2025-01-03 | XR_ITS ---
XR KNEE HAJA 3V HISTORY: Bilateral knee pain COMPARISON: None. TECHNIQUE: AP and lateral views of each knee obtained. FINDINGS: RIGHT KNEE: Diffuse osteopenia. No fracture, dislocation, or suspicious bone lesion. Severe medial and patellofemoral compartment osteoarthrosis, with [id number] appearance in the medial compartment, subchondral sclerosis and cystic changes, and marginal osteophytic spurring. Similar findings noted in the patellofemoral joint. Moderate narrowing and arthritis in the lateral compartment. There is varus angulation of the knee joint. No evidence of joint effusion. Soft tissues appear normal aside from vascular calcifications. LEFT KNEE: Diffuse osteopenia. No fracture, dislocation, or suspicious bone lesion. Severe medial and patellofemoral compartment osteoarthrosis, with [id number] appearance in the medial compartment, subchondral sclerosis and cystic changes, and marginal osteophytic spurring. Similar findings noted in the patellofemoral joint. Moderate narrowing and arthritis in the lateral compartment. There is varus angulation of the knee joint. No evidence of joint effusion. Soft tissues appear normal aside from vascular calcifications. XR/XR Knee Haja 3V IMPRESSION: 1. Severe arthritis in both knees, most significant in the medial and patellofemoral compartments, with [id number] appearance in the medial compartment and mild varus angulation of both knees. 2. No significant joint effusion on either side. 3. Diffuse osteopenia bilaterally. 4. Vascular calcifications in the soft tissues. Electronically signed by: Mumtaz Samuels MD 01/04/2025 09:24 AM EDT
== END 2025-01-03 11:16 | disposition home or self-care (01) ==
LOC: HO.HOSX 11:15
PROVIDERS: Visit Provider Orthopaedic Surgery
DX: G89.29 Other chronic pain (principal); M25.562 Pain in left knee; M25.561 Pain in right knee; M17.12 Unilateral primary osteoarthritis, left knee; M17.11 Unilateral primary osteoarthritis, right knee
CPT/HCPCS: 20610; 73562; 99202; J1010; J2003

== ENCOUNTER 2025-01-03 13:58 | Outpatient (AMB) | payer MEDICARE, OTHER, SELFPAY ==
[2025-01-03 14:11] VITALS: BMI 19.3
--- NOTE | 2025-01-03 14:11 | MHC.OFFVIS ---
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 Patient reports pain is all around the knee. Family states patient cannot walk on her own and needs assistance lifting her up. Family says there is a cracking sound in her right knee. Family is concerned on how this is all affecting her activities of daily living. Has tried Diclofenac Gel and Tylenol arthritis with minimal relief. Reports previous fall aggravating her right knee. Patient has a history of left femur ORIF addressed a decade ago with a titanium implantation. Denies right knee surgeries. The patient has failed the last 3 months of conservative treatment which has included a home exercise program, physical therapy exercises, Tylenol and anti-inflammatory medicines. At this point her knee pains her interfering with her activities of daily living and her ability to sleep well through the night. She wishes to hold off on total knee replacement surgery if at all possible. Allergies Penicillins [PENICILLINS] Allergy (Intermediate, Verified 01/03/25 14:11) RASH halothane [HALOTHANE] Adverse Reaction (Intermediate, Verified 01/03/25 14:11) ELEVATED LIVER ENZYMES Medication List - Last Reconciled 01/03/25 by Cristóbal Bridges MD acetaminophen ER (Tylenol Arthritis Pain) 1,300 mg PO Q8H ammonium lactate 12% 1 appl topical BID diclofenac sodium 1% (Voltaren Arthritis Pain) 4 grams topical QID trazodone 25 mg (1/2 x 50 mg) PO BEDTIME PRN PFSH Medical History (Updated 01/04/25 @ 07:39 by Cristóbal Bridges MD) Acute deep vein thrombosis of left lower extremity Hypertension COPD (chronic obstructive pulmonary disease) Allergic rhinitis Surgical History (Updated 12/28/24 @ 09:13 by ADAM Weber) History of surgery No history of previous surgery Family History Mother No problems noted. Father No problems noted. Social History Household Members: Children Housing: House Do you presently have visiting nurse or other home services: Yes Alcohol intake: never Patient Tobacco Use Status: Never used Tobacco Tobacco use type: Cigarette e-Cigarette/Vaping Use: Never Used Second Hand Smoke Exposure: No service: No Current occupational status: retired Cognitive needs: Yes (Walker, cane, wheelchair) Hearing needs: No Vision needs: Yes (reading glasses) Physical Exam Vital Signs: BMI result Body Mass Index 19.3 Const Other: Well-nourished well-developed very friendly female awake alert and oriented x3 in no acute distress Extrem Other: Bilateral knee examination shows minimal effusions, palpable crepitus with range of motion, pain with range of motion, range of motion from -3 degrees to 110 degrees, no instability Office Procedures AMB Joint Injection/Aspiration Joint Injection/Aspiration Primary Site: right knee Prep: site was prepped using aseptic technique Injected: 40 mg of, DepoMedrol and 1% plain lidocaine Procedure: The patient tolerated the procedure well Coding 43743 - Large joint Procedure code (CPT) selection complete AMB Joint Injection/Aspiration Joint Injection/Aspiration Primary Site: left knee Prep: site was prepped using aseptic technique Injected: 40 mg of, DepoMedrol and 1% plain lidocaine Procedure: The patient tolerated the procedure well Coding 52456 - Large joint Procedure code (CPT) selection complete Results Reviewed Results Reviewed: X-rays of the patient's bilateral knee show severe joint space narrowing, subchondral sclerosis, no acute bony abnormalities Assessment & Plan Assessment & Plan (1) Osteoarthritis of left knee: Code(s): M17.12 - Unilateral primary osteoarthritis, left knee Category: Medical (2) Osteoarthritis of right knee: Code(s): M17.11 - Unilateral primary osteoarthritis, right knee Category: Medical Plan Ms. Pearce presents with bilateral knee pains due to osteoarthritis. The risks and benefits of bilateral knee cortisone injections were discussed at length with the patient. The patient wished to proceed. She tolerated the injections well. I will see whether or not the patient's insurance company will cover a viscosupplementation injection, such as Durolane, for both of her knees. I will see her back in 3 months' time. Feel free to call me at any time should questions regarding her orthopedic management arise. Thank you very much for asking me to see this very friendly patient. I spent 21 minutes in reviewing the patient's records and imaging studies, seeing the patient and documenting in the medical record. Orders: Orders AMB Joint Injection/Aspiration 01/03/25 M17.12 - Unilateral primary osteoarthritis, left knee AMB Joint Injection/Aspiration 01/03/25 M17.11 - Unilateral primary osteoarthritis, right knee XR Knee Haja 3V 01/03/25 G89.29 - Other chronic pain, M25.561 - Pain in right knee, M25.562 - Pain in left knee Coding Level of Care Code New Pt Level 3 (51630) Complex EM visit Add On G2211 Diagnoses Osteoarthritis of left knee M17.12 Osteoarthritis of right knee M17.11 CPT Codes Coding - 75972 Large joint: 79743 - Large joint ([id number]) Coding - 54264 Large joint: 93944 - Large joint ([id number])
--- OUTSIDE RECORDS SUMMARY | 2025-01-03 16:33 | XMS_ITS | Clinical Summary ---
Author Organization Unknown Care Team Providers Care Hand Scudder Name Role Phone JUAN FRANCISCO FRAME CARVER SPINDLE, MONTSE Unavailable Unavailable KHANH OT, BREN Unavailable Unavailjessie MOON ([facility]) [facility] - PT, MICHOACANO Unavailable Unavailable VON CABAW, MARLI Unavailable Unavailable LASHONDA RN, MARTHA Unavailable Unavailable Payers Payer Name Policy Type Policy Number Effective Date Expira tion Date MEDICARE - [facility] [place] - PDGM [id number] Problems Condition Name Condition Details Condition Category Status Onset Date Resolution Date Last Treatment Date Treating Clinician Comments CHRONIC OBSTRUCTIVE PULMONARY DISEASE, UNSPECIFIED Active 08-01 00:00: 00 UNSPECIFIED DEMENTIA, MODERATE, WITHOUT BEH/PSYCH/MO OD/ANX Active 08-01 00:00: 00 PERIPHERAL VASCULAR DISEASE, UNSPECIFIED Active 08-01 00:00: 00 VENOUS INSUFFICIENC Y (CHRONIC) (PERIPHERAL) Active 08-01 00:00: 00 ALLERGIC RHINITIS, UNSPECIFIED Active 08-01 00:00: 00 ESSENTIAL (PRIMARY) HYPERTENSION Active 08-01 00:00: 00 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 Active 08-01 00:00: 00 PERSONAL HISTORY OF OTHER VENOUS THROMBOSIS AND EMBOLISM Active 08-01 00:00: 00 CARE HOME (CURRENT) USE OF ANTICOAGULAN TS Active 08-01 00:00: 00 Problems related to health literacy Active 08-01 00:00: 00 CHRONIC OBSTRUCTIVE PULMONARY DISEASE W (ACUTE) EXACERBATION Active 11-29 00:00: 00 Allergies, Adverse Reactions, Alerts Allergy Name Allergy Type Status Severity Reaction(s) Onset Date Inactive Date Treating Clinician Comments NKA Propensity to adverse reactions Active 2024-10 20:49:3 8 Medications Ordered Medication Name Filled Medication Name Start Date Stop Date Current Medication? Ordering Clinician Indication Dosage Frequency Signature (SIG) Comments Components doxycycline hyclate 100 mg tablet 04-14 00:00: 00 04-23 23:59 :00 No [id number] 1 tablet 2 TIMES DAILY 1 tablet 2 TIMES DAILY (route: oral) Med Classific ation: Anti-Infe ctive Agents Eliquis 5 mg tablet 04-18 00:00: 00 04-23 23:59 :00 No [id number] 2 tablet 2 TIMES DAILY 2 tablet 2 TIMES DAILY (route: oral) Med Classific ation: Hematolog ical Agents Eliquis 5 mg tablet 04-25 00:00: 00 11-18 23:59 :00 No [id number] 1 tablet DAILY 1 tablet DAILY (route: oral) Med Classific ation: Hematolog ical Agents fluticasone 100 mcg-salmete rol 50 mcg/dose blistr powdr for inhalation 04-18 00:00: 00 11-18 23:59 :00 No [id number] 1 blister , with inhalat ion device 2 TIMES DAILY 1 blister, with inhalation device 2 TIMES DAILY (route: inhalation ) Med Classific ation: Respirato ry Therapy Agents lisinopril 20 mg tablet 04-18 00:00: 00 11-18 23:59 :00 No [id number] 1 tablet DAILY 1 tablet DAILY (route: oral) Med Classific ation: Cardiovas cular Therapy Agents montelukast 10 mg tablet 04-18 00:00: 00 11-18 23:59 :00 No [id number] 1 tablet DAILY 1 tablet DAILY (route: oral) Med Classific ation: Respirato ry Therapy Agents doxycycline hyclate 100 mg tablet 2023-08 00:00: 00 06-03 23:59 :00 No [id number] 1 tablet 2 TIMES DAILY 1 tablet 2 TIMES DAILY (route: oral) Med Classific ation: Anti-Infe ctive Agents ciprofloxac in 250 mg tablet 2023-08 00:00: 00 06-11 23:59 :00 No [id number] 1 tablet 2 TIMES DAILY 1 tablet 2 TIMES DAILY (route: oral) Med Classific ation: Anti-Infe ctive Agents clotrimazol e 1 % topical cream 08-24 00:00: 00 09-06 23:59 :00 No [id number] Per instruc tions DAILY Per instructio ns DAILY (route: topical) Med Classific ation: Dermatolo gical doxycycline hyclate 100 mg capsule 08-23 00:00: 00 08-27 23:59 :00 No [id number] 1 capsule EVERY 12 HOURS 1 capsule EVERY 12 HOURS (route: oral) Med Classific ation: Anti-Infe ctive Agents doxycycline monohydrate 100 mg tablet 08-23 00:00: 00 09-02 23:59 :00 No [id number] 1 tablet EVERY 12 HOURS 1 tablet EVERY 12 HOURS (route: oral) Med Classific ation: Anti-Infe ctive Agents Eliquis 5 mg tablet 11-25 00:00: 00 Yes [id number] 1 tablet DAILY 1 tablet DAILY (route: oral) Med Classific ation: Hematolog ical Agents lisinopril 20 mg tablet 11-25 00:00: 00 Yes [id number] 1 tablet DAILY 1 tablet DAILY (route: oral) Med Classific ation: Cardiovas cular Therapy Agents montelukast 10 mg tablet 11-25 00:00: 00 Yes [id number] 1 tablet DAILY 1 tablet DAILY (route: oral) Med Classific ation: Respirato ry Therapy Agents tramadol 50 mg tablet 11-25 00:00: 00 Yes [id number] 1 tablet BEDTIME 1 tablet BEDTIME (route: oral) Med Classific ation: Analgesic , Anti-infl ammatory or Antipyret ic Immunizations Ordered Immunization Name Filled Immunization Name Date Status Comments Refusal Reason INFLUENZA, TIV (INACTIVATED) 2024-05-20 00:00:00 COVID-19, COVID-19 2023-11-28 00:00:00 SHINGLES, TIV (INACTIVATED) 2023-08-22 00:00:00 PNEUMOCOCCAL (PPV), PPV 2022-11-08 00:00:00 Vital Signs Vital Name Observation Time Observation Value Commen ts Temperature 2024-12-28 11:25:00.000 98.3 [degF] Temperature 2024-12-06 13:30:00.000 97.5 [degF] Temperature 2024-12-05 14:17:00.000 98.1 [degF] Temperature 2024-11-25 09:26:00.000 98.7 [degF] BMI (%) 2024-11-25 09:26:00.000 21 kg/m2 Height 2024-11-25 09:26:00.000 68 [in_us] Pulse 2024-12-28 11:25:00.000 64 /min Pulse 2024-12-12 11:34:00.000 60 /min Pulse 2024-12-06 13:30:00.000 66 /min Pulse 2024-12-06 10:46:00.000 76 /min Pulse 2024-12-05 14:17:00.000 68 /min Pulse 2024-11-29 12:15:00.000 60 /min Pulse 2024-11-25 09:26:00.000 74 /min O2 Saturation (%) 2024-12-28 11:25:00.000 98 % O2 Saturation (%) 2024-12-12 11:34:00.000 95 % O2 Saturation (%) 2024-12-06 13:30:00.000 96 % O2 Saturation (%) 2024-12-06 10:46:00.000 98 % O2 Saturation (%) 2024-11-29 12:15:00.000 96 % O2 Saturation (%) 2024-11-25 09:26:00.000 98 % Respirations 2024-12-28 11:25:00.000 18 /min Respirations 2024-12-06 13:30:00.000 18 /min Respirations 2024-12-05 14:17:00.000 16 /min Respirations 2024-11-25 09:26:00.000 20 /min Weight (lbs) 2024-11-25 09:26:00.000 140 [lb_av] Systolic Blood Pressure 2024-12-28 11:25:00.000 124 mm [Hg] Systolic Blood Pressure 2024-12-12 11:34:00.000 142 mm [Hg] Systolic Blood Pressure 2024-12-06 13:30:00.000 138 mm [Hg] Systolic Blood Pressure 2024-12-06 10:46:00.000 138 mm [Hg] Systolic Blood Pressure 2024-12-05 14:17:00.000 120 mm [Hg] Systolic Blood Pressure 2024-11-29 12:15:00.000 118 mm [Hg] Systolic Blood Pressure 2024-11-25 09:26:00.000 114 mm [Hg] Diastolic Blood Pressure 2024-12-28 11:25:00.000 70 mm [Hg] Diastolic Blood Pressure 2024-12-12 11:34:00.000 68 mm [Hg] Diastolic Blood Pressure 2024-12-06 13:30:00.000 80 mm [Hg] Diastolic Blood Pressure 2024-12-06 10:46:00.000 76 mm [Hg] Diastolic Blood Pressure 2024-12-05 14:17:00.000 72 mm [Hg] Diastolic Blood Pressure 2024-11-29 12:15:00.000 62 mm [Hg] Diastolic Blood Pressure 2024-11-25 09:26:00.000 70 mm [Hg] Plan of Treatment Planned Activity Planned Date Details Comments Future Scheduled Test SKILLED NU RSE TO EVALUATE PATIENT, IDENTIFY PRIMARY AND CO-MORBID CONDITIONS CODED PER CODING GUIDELINES, AND DEVELOP PATIENT SPECIFIC PLAN OF CARE THAT INCLUDES PATIENT GOAL FOR HOME HEALTH. [code = SKILLED NURSE TO EVALUATE PATIENT, IDENTIFY PRIMARY AND CO-MORBID CONDITIONS CODED PER CODING GUIDELINES, AND DEVELOP PATIENT SPECIFIC PLAN OF CARE THAT INCLUDES PATIENT GOAL FOR HOME HEALTH.] Future Scheduled Test SKILLED NU RSE TO PROVIDE TEACHING/REINFORCEMENT RELATED TO URINARY INCONTINENCE. [code = SKILLED NURSE TO PROVIDE TEACHING/REINFORCEMENT RELATED TO URINARY INCONTINENCE.] Future Scheduled Test SKILLED NU RSE MAY COLLECT URINE SAMPLE FOR URINE REAGENT STRIP TESTING AND/OR URINALYSIS WITH CS 1-3 PRN IF INDICATED FOR SIGNS AND SYMPTOMS OF UTI. IF REAGENT STRIP TEST IS POSITIVE FOR UTI, SKILLED NURSE TO TAKE URINE SAMPLE TO LAB FOR URINE CS AND REPORT RESULTS TO PHYSICIAN. [code = SKILLED NURSE MAY COLLECT URINE SAMPLE FOR URINE REAGENT STRIP TESTING AND/OR URINALYSIS WITH CS 1-3 PRN IF INDICATED FOR SIGNS AND SYMPTOMS OF UTI. IF REAGENT STRIP TEST IS POSITIVE FOR UTI, SKILLED NURSE TO TAKE URINE SAMPLE TO LAB FOR URINE CS AND REPORT RESULTS TO PHYSICIAN.] Future Scheduled Test SKILLED NU RSE FOR O/A, TEACHING AND MANAGEMENT OF UTI FOR EARLY IDENTIFICATION OF EXACERBATION OF DISEASE PROCESS [code = SKILLED NURSE FOR O/A, TEACHING AND MANAGEMENT OF UTI FOR EARLY IDENTIFICATION OF EXACERBATION OF DISEASE PROCESS] Future Scheduled Test OCCUPATION AL THERAPIST TO EVALUATE PATIENT FOR ADLS [code = OCCUPATIONAL THERAPIST TO EVALUATE PATIENT FOR ADLS] Future Scheduled Test MEDICAL SO CIAL WORKER TO EVALUATE PATIENT FOR PRODUCER [code = COMMUNITY ASSOCIATION MANAGER TO EVALUATE PATIENT FOR PRODUCER] Future Scheduled Test SKILLED NU RSE TO INSTRUCT/REINFORCE MEASURES TO PREVENT BARRIERS TO CARE. [code = SKILLED NURSE TO INSTRUCT/REINFORCE MEASURES TO PREVENT BARRIERS TO CARE.] Future Scheduled Test SKILLED NU RSE FOR O/A TO IDENTIFY CHANGES ASSOCIATED WITH AMS ) AND PROVIDE INSTRUCTION RELATED TO SAFETY MEASURES TO PREVENT INJURY SECONDARY TO IMPAIRED NEUROLOGICAL STATUS. SKILLED NURSE TO REPORT SIGNIFICANT CHANGES OF NEUROLOGIC STATUS TO PHYSICIAN FOR EARLY INTERVENTION. [code = SKILLED NURSE FOR O/A TO IDENTIFY CHANGES ASSOCIATED WITH AMS ) AND PROVIDE INSTRUCTION RELATED TO SAFETY MEASURES TO PREVENT INJURY SECONDARY TO IMPAIRED NEUROLOGICAL STATUS. SKILLED NURSE TO REPORT SIGNIFICANT CHANGES OF NEUROLOGIC STATUS TO PHYSICIAN FOR EARLY INTERVENTION.] Future Scheduled Test SKILLED NU RSE FOR O/A AND SKILLED TEACHING IN MANAGEMENT OF DVT DISEASE. [code = SKILLED NURSE FOR O/A AND SKILLED TEACHING IN MANAGEMENT OF DVT DISEASE.] Future Scheduled Test PHYSICAL T HERAPIST TO EVALUATE PATIENT FOR STRENGTHENING AND MOBILITY [code = PHYSICAL THERAPIST TO EVALUATE PATIENT FOR STRENGTHENING AND MOBILITY ] Future Scheduled Test SKILLED NU RSE TO PROVIDE TEACHING ON SIGNS AND SYMPTOMS AND MANAGEMENT OF HYPERTENSION. [code = SKILLED NURSE TO PROVIDE TEACHING ON SIGNS AND SYMPTOMS AND MANAGEMENT OF HYPERTENSION.] Future Scheduled Test SKILLED NU RSE FOR O/A AND SKILLED TEACHING RELATED TO ALTERED SKIN INTEGRITY D/T CELLULITIS. [code = SKILLED NURSE FOR O/A AND SKILLED TEACHING RELATED TO ALTERED SKIN INTEGRITY D/T CELLULITIS.] Future Scheduled Test SKILLED NU RSE TO INSTRUCT PATIENT/CAREGIVER ON COPD TO INCLUDE TEACHING AND SELF-MANAGEMENT RELATED TO COPD DISEASE PROCESS, SIGNS AND SYMPTOMS, AND COMPLICATIONS. [code = SKILLED NURSE TO INSTRUCT PATIENT/CAREGIVER ON COPD TO INCLUDE TEACHING AND SELF-MANAGEMENT RELATED TO COPD DISEASE PROCESS, SIGNS AND SYMPTOMS, AND COMPLICATIONS.] Future Scheduled Test SKILLED NU RSE FOR O/A AND SKILLED TEACHING RELATED TO SIGNS AND SYMPTOMS AND MANAGEMENT OF ANEMIA. [code = SKILLED NURSE FOR O/A AND SKILLED TEACHING RELATED TO SIGNS AND SYMPTOMS AND MANAGEMENT OF ANEMIA.] Future Scheduled Test PATIENT BAKER S A RISK OF HOSPITALIZATION AND ED USE. SKILLED NURSE TO ESTABLISH SUPPORT MEASURES TO MINIMIZE RISK OF HOSPITALIZATION AND ED USE, AND INSTRUCT PATIENT/CAREGIVER ON METHODS TO REDUCE AVOIDABLE HOSPITALIZATION AND ED USE. [code = PATIENT HAS A RISK OF HOSPITALIZATION AND ED USE. SKILLED NURSE TO ESTABLISH SUPPORT MEASURES TO MINIMIZE RISK OF HOSPITALIZATION AND ED USE, AND INSTRUCT PATIENT/CAREGIVER ON METHODS TO REDUCE AVOIDABLE HOSPITALIZATION AND ED USE.] Future Scheduled Test SKILLED NU RSE TO PROVIDE INSTRUCTION TO PATIENT/CAREGIVER RELATED TO DISCHARGE PLANNING. [code = SKILLED NURSE TO PROVIDE INSTRUCTION TO PATIENT/CAREGIVER RELATED TO DISCHARGE PLANNING.] Future Scheduled Test SKILLED NU RSE TO PERFORM ENVIRONMENTAL SAFETY RISK ASSESSMENT AND FALL RISK ASSESSMENT AND PROVIDE INSTRUCTION TO IMPLEMENT ENVIRONMENTAL SAFETY AND FALL PREVENTION STRATEGIES THROUGHOUT THE CERTIFICATION PERIOD. SKILLED NURSE WILL MAINTAIN SITUATIONAL AWARENESS AND WILL NOTIFY CLINICAL INSTRUMENT SPECIALIST AND PHYSICIAN/PROVIDER WITH ANY CHANGE IN CONDITION. [code = SKILLED NURSE TO PERFORM ENVIRONMENTAL SAFETY RISK ASSESSMENT AND FALL RISK ASSESSMENT AND PROVIDE INSTRUCTION TO IMPLEMENT ENVIRONMENTAL SAFETY AND FALL PREVENTION STRATEGIES THROUGHOUT THE CERTIFICATION PERIOD. SKILLED NURSE WILL MAINTAIN SITUATIONAL AWARENESS AND WILL NOTIFY CLINICAL INSTRUMENT SPECIALIST AND PHYSICIAN/PROVIDER WITH ANY CHANGE IN CONDITION.] Future Scheduled Test SKILLED NU RSE FOR OBSERVATION AND ASSESSMENT OF PATIENTS PAIN LEVEL AND EFFECTIVENESS OF PAIN MANAGEMENT REGIMEN. SKILLED NURSE TO INSTRUCT PATIENT/CAREGIVER REGARDING PHARMACOLOGIC AND NON-PHARMACOLOGIC PAIN CONTROL MEASURES. SKILLED NURSE TO REPORT TO PHYSICIAN IF PAIN IS UNCONTROLLED WITH CURRENT PAIN MANAGEMENT REGIMEN. [code = SKILLED NURSE FOR OBSERVATION AND ASSESSMENT OF PATIENTS PAIN LEVEL AND EFFECTIVENESS OF PAIN MANAGEMENT REGIMEN. SKILLED NURSE TO INSTRUCT PATIENT/CAREGIVER REGARDING PHARMACOLOGIC AND NON-PHARMACOLOGIC PAIN CONTROL MEASURES. SKILLED NURSE TO REPORT TO PHYSICIAN IF PAIN IS UNCONTROLLED WITH CURRENT PAIN MANAGEMENT REGIMEN.] Future Scheduled Test SKILLED NU RSE TO ASSESS PATIENT'S SKIN INTEGRITY AND INSTRUCT PATIENT/CAREGIVER ON MEASURES TO PREVENT PRESSURE ULCERS. [code = SKILLED NURSE TO ASSESS PATIENT'S SKIN INTEGRITY AND INSTRUCT PATIENT/CAREGIVER ON MEASURES TO PREVENT PRESSURE ULCERS.] Future Scheduled Test SKILLED NU RSE TO REVIEW PATIENT MEDICATIONS (PRESCRIPTION/OTC). INSTRUCT PATIENT/CAREGIVER ON ALL MEDICATIONS INCLUDING PURPOSE, WHEN TO TAKE, IMPORTANCE OF MEDICATION ADHERENCE, MONITORING OF EFFECTIVENESS, ADVERSE DRUG REACTIONS, POSSIBLE SIDE EFFECTS, AND WHEN TO NOTIFY AGENCY OR PHYSICIAN/PROVIDER OF ANY CONCERNS. [code = SKILLED NURSE TO REVIEW PATIENT MEDICATIONS (PRESCRIPTION/OTC). INSTRUCT PATIENT/CAREGIVER ON ALL MEDICATIONS INCLUDING PURPOSE, WHEN TO TAKE, IMPORTANCE OF MEDICATION ADHERENCE, MONITORING OF EFFECTIVENESS, ADVERSE DRUG REACTIONS, POSSIBLE SIDE EFFECTS, AND WHEN TO NOTIFY AGENCY OR PHYSICIAN/PROVIDER OF ANY CONCERNS.] Future Scheduled Test MEDICAL SO CIAL WORKER EVALUATION PERFORMED. NO ADDITIONAL VISITS REQUIRED. [code = COMMUNITY ASSOCIATION MANAGER EVALUATION PERFORMED. NO ADDITIONAL VISITS REQUIRED.] Future Scheduled Test OCCUPATION AL THERAPIST TO EVALUATE PATIENT SECONDARY TO FUNCTIONAL DEFICITS/SAFETY CONCERNS IDENTIFIED DURING EVALUATION OCCUPATIONAL THERAPY TO ESTABLISH /UPGRADE/DOWNGRADE THERAPEUTIC EXERCISE PROGRAM AND INSTRUCT PATIENT/CAREGIVER ON EXERCISE PRECAUTIONS WITH WRITTEN HOME PROGRAM. MAY INCLUDE PROM, AAROM, AROM, RROM APPROPRIATE TO IMPROVE FUNCTIONAL STRENGTH AND/OR RANGE OF MOTION. OCCUPATIONAL THERAPY TO INSTRUCT PATIENT/CAREGIVER ON SAFE TRANSFER TECHNIQUES USING PROPER BODY MECHANICS AND EQUIPMENT TO ENHANCE PARTICIPATION IN ADLS. OCCUPATIONAL THERAPY TO ASSESS AND RECOMMEND HOME SAFETY ADAPTATIONS AND EDUCATE PATIENT /CAREGIVER ON FALL PREVENTION STRATEGIES TO ENHANCE PARTICIPATION IN ADLS. OCCUPATIONAL THERAPY TO PROVIDE PATIENT/CAREGIVER WITH INSTRUCTIONS AND RECOMMENDATIONS TO IMPROVE ADLS WHILE USING APPROPRIATE ADAPTIVE DEVICES RECOMMENDED. SUMMARY OF THERAPY EVAL/ASSESSMENT FINDINGS AND REASON(S) SKILLS OF A THERAPIST ARE INDICATED: OT EVALUATION (11/29/24) PATIENT IS AN 84-YEAR-OLD FEMALE WHO WAS REFERRED TO OCCUPATIONAL THERAPY SERVICES UP TO HER RECENT HOSPITAL STAY FOR ALTERED MENTAL STATUS WITH A SUBSEQUENT REHAB STAY. PATIENT DID HAVE A FALL IN JUNE 2024 RESULTING IN A TBI. PATIENT'S PAST MEDICAL HISTORY IS SIGNIFICANT FOR: COPD DV, CELLULITIS, AND HYPERTENSION. PRIOR LEVEL OF FUNCTION: PATIENT LIVES IN A SINGLE FAMILY MULTILEVEL HOME WITH HER SON ZENA. PATIENT RESIDES ON FIRST FLOOR ONLY WHICH SHE HAS ACCESS TO BATHROOM AND HER BEDROOM WELL THE KITCHEN. ADL AND MOBILITY HISTORY UNCLEAR PATIENT IS A POOR HISTORIAN DUE TO COGNITIVE ISSUES AND SON ANAMARIA DOES NOT LIVE IN THE HOME AND DOES NOT KNOW THE DAY TO DAY DUANE ON. IT IS REPORTED SHE DID HAVE MEALS ON WHEELS/RAILCAR MECHANIC SERVICES THROUGH [employer]. PATIENT WAS WALKING WITH A ROLLING WALKER AND PERFORMING TRANSFERS WITH ASSIST. CURRENT LEVEL OF FUNCTION: PATIENT SEEN AND PRESENCE OF SON ZENA, [id number], [employer]ANDSON IN [employer], AND AIDE THROUGH ELDER SERVICES. PATIENT SITTING COMFORTABLY IN RECLINER LIFT CHAIR UPON THERAPIST ARRIVAL. VITALS WITHIN NORMAL LIMITS PATIENT OFFERS NO COMPLAINTS. NOTED TO HAVE COMPLAINTS OF PAIN WITH TRANSFER TRAINING DUE TO BILATERAL KNEE PAIN AND NOTABLE ARTHRITIS CHANGES OF THE JOINTS. PATIENT REQUIRED MODERATE ASSISTANCE OF ONE FOR [id number] WITH ELEVATED CHAIR. PATIENT REQUIRED INCREASED TIME TO SHIFT HER WEIGHT ONTO BOTH LEGS WHEN SHE WAS ABLE TO GET HER BALANCE SHE WAS ABLE TO AMBULATE OVER TO THE CORNER OF HER BEDROOM WHERE HER COMMODE WAS THAT SHE USES WELL A FLOOR TO CEILING A GRAB BAR NEXT TO THE COMMODE. SHE REQUIRED CONTACT GUARD ASSIST FOR MOBILITY WITH ROLLING WALKER. SHE WAS ABLE TO GET ON AND OFF THE COMMODE WITH CONTACT GUARD AND CUES FOR HAND POSITIONING AND DEVICE POSITIONING. PATIENT REQUIRED MAX CUES TO BE ABLE TO LINE UP WITH SURFACE BEFORE SHE SITS DOWN. SHE WAS UNABLE TO DON HER SOCKS BUT SHE WAS ABLE TO TAKE THEM OFF. SHE HAS EXTENSIVE ASSIST FOR BOTH BATHING DRESSING TOILETING AND ANY FUNCTIONAL MOBILITY AT THIS POINT. WAS ABLE TO LOOK AT HER SHOWER SETUP HOWEVER AT THIS TIME DUE TO PATIENT'S TRANSFER STATUS IT IS NOT SAFE FOR PATIENT TO ACCESS THIS GLASS SHOWER STALL WE'RE UNABLE TO PUT BARS WITHIN HER REACH TO SAFELY GET IN AND OUT. PATIENT IS DEPENDENT FOR ALL OTHER ASPECTS OF HER CARE AND MOD ASSIST REMEMBERING SAFETY FOR ALL FUNCTIONAL TASKS. SHE DEMONSTRATES WITHIN FUNCTIONAL LIMITS BILATERAL UPPER EXTREMITIES FAIR STRENGTH THROUGHOUT TO MAKE BASIC NEEDS AT THIS TIME. STATED ABOVE PATIENT'S PAIN COMPLAINTS, WITH TRANSITIONING AND BILATERAL KNEES OTHERWISE NO COMPLAINTS. PATIENT WAS ORIENTED TO SELF AND CITY ONLY. ASSESSMENT/POC: OCCUPATIONAL THERAPY EVALUATION COMPLETED WITH RECOMMENDATION FOR SKILLED OT ONE TIME A WEEK X4 TO MEET GOALS. PATIENT AND CAREGIVERS WOULD BENEFIT FROM SAFETY EDUCATION REGARDING TRANSFERS AND PROPER USE OF DME EQUIPMENT. ALSO PATIENT AND CAREGIVERS WOULD BENEFIT FROM EDUCATION ON HOME EXERCISE PROGRAM AND ADAPTATIONS TO HOME TO MAKE IT SAFER FOR PATIENT WITH HER DECLINING COGNITIVE STATUS. PATIENT AND FAMILY IN AGREEMENT WITH OT EVAL AND PLAN OF CARE. MD OFFICE NOTIFIED OF OT EVAL AND PLAN OF CARE. UNKNOWN FOLLOW UP APPOINTMENTS AT THIS TIME [code = OCCUPATIONAL THERAPIST TO EVALUATE PATIENT SECONDARY TO FUNCTIONAL DEFICITS/SAFETY CONCERNS IDENTIFIED DURING EVALUATION OCCUPATIONAL THERAPY TO ESTABLISH /UPGRADE/DOWNGRADE THERAPEUTIC EXERCISE PROGRAM AND INSTRUCT PATIENT/CAREGIVER ON EXERCISE PRECAUTIONS WITH WRITTEN HOME PROGRAM. MAY INCLUDE PROM, AAROM, AROM, RROM APPROPRIATE TO IMPROVE FUNCTIONAL STRENGTH AND/OR RANGE OF MOTION. OCCUPATIONAL THERAPY TO INSTRUCT PATIENT/CAREGIVER ON SAFE TRANSFER TECHNIQUES USING PROPER BODY MECHANICS AND EQUIPMENT TO ENHANCE PARTICIPATION IN ADLS. OCCUPATIONAL THERAPY TO ASSESS AND RECOMMEND HOME SAFETY ADAPTATIONS AND EDUCATE PATIENT /CAREGIVER ON FALL PREVENTION STRATEGIES TO ENHANCE PARTICIPATION IN ADLS. OCCUPATIONAL THERAPY TO PROVIDE PATIENT/CAREGIVER WITH INSTRUCTIONS AND RECOMMENDATIONS TO IMPROVE ADLS WHILE USING APPROPRIATE ADAPTIVE DEVICES RECOMMENDED. SUMMARY OF THERAPY EVAL/ASSESSMENT FINDINGS AND REASON(S) SKILLS OF A THERAPIST ARE INDICATED: OT EVALUATION (11/29/24) PATIENT IS AN 84-YEAR-OLD FEMALE WHO WAS REFERRED TO OCCUPATIONAL THERAPY SERVICES UP TO HER RECENT HOSPITAL STAY FOR ALTERED MENTAL STATUS WITH A SUBSEQUENT REHAB STAY. PATIENT DID HAVE A FALL IN JUNE 2024 RESULTING IN A TBI. PATIENT'S PAST MEDICAL HISTORY IS SIGNIFICANT FOR: COPD DV, CELLULITIS, AND HYPERTENSION. PRIOR LEVEL OF FUNCTION: PATIENT LIVES IN A SINGLE FAMILY MULTILEVEL HOME WITH HER SON ZENA. PATIENT RESIDES ON FIRST FLOOR ONLY WHICH SHE HAS ACCESS TO BATHROOM AND HER BEDROOM WELL THE KITCHEN. ADL AND MOBILITY HISTORY UNCLEAR PATIENT IS A POOR HISTORIAN DUE TO COGNITIVE ISSUES AND SON ANAMARIA DOES NOT LIVE IN THE HOME AND DOES NOT KNOW THE DAY TO DAY DUANE ON. IT IS REPORTED SHE DID HAVE MEALS ON WHEELS/RAILCAR MECHANIC SERVICES THROUGH [employer]. PATIENT WAS WALKING WITH A ROLLING WALKER AND PERFORMING TRANSFERS WITH ASSIST. CURRENT LEVEL OF FUNCTION: PATIENT SEEN AND PRESENCE OF SON ZENA, [id number], [employer]ANDSON IN [employer], AND AIDE THROUGH ELDER SERVICES. PATIENT SITTING COMFORTABLY IN RECLINER LIFT CHAIR UPON THERAPIST ARRIVAL. VITALS WITHIN NORMAL LIMITS PATIENT OFFERS NO COMPLAINTS. NOTED TO HAVE COMPLAINTS OF PAIN WITH TRANSFER TRAINING DUE TO BILATERAL KNEE PAIN AND NOTABLE ARTHRITIS CHANGES OF THE JOINTS. PATIENT REQUIRED MODERATE ASSISTANCE OF ONE FOR ORC-OO-PRAUN WITH ELEVATED CHAIR. PATIENT REQUIRED INCREASED TIME TO SHIFT HER WEIGHT ONTO BOTH LEGS WHEN SHE WAS ABLE TO GET HER BALANCE SHE WAS ABLE TO AMBULATE OVER TO THE CORNER OF HER BEDROOM WHERE HER COMMODE WAS THAT SHE USES WELL A FLOOR TO CEILING A GRAB BAR NEXT TO THE COMMODE. SHE REQUIRED CONTACT GUARD ASSIST FOR MOBILITY WITH ROLLING WALKER. SHE WAS ABLE TO GET ON AND OFF THE COMMODE WITH CONTACT GUARD AND CUES FOR HAND POSITIONING AND DEVICE POSITIONING. PATIENT REQUIRED MAX CUES TO BE ABLE TO LINE UP WITH SURFACE BEFORE SHE SITS DOWN. SHE WAS UNABLE TO DON HER SOCKS BUT SHE WAS ABLE TO TAKE THEM OFF. SHE HAS EXTENSIVE ASSIST FOR BOTH BATHING DRESSING TOILETING AND ANY FUNCTIONAL MOBILITY AT THIS POINT. WAS ABLE TO LOOK AT HER SHOWER SETUP HOWEVER AT THIS TIME DUE TO PATIENT'S TRANSFER STATUS IT IS NOT SAFE FOR PATIENT TO ACCESS THIS GLASS SHOWER STALL WE'RE UNABLE TO PUT BARS WITHIN HER REACH TO SAFELY GET IN AND OUT. PATIENT IS DEPENDENT FOR ALL OTHER ASPECTS OF HER CARE AND MOD ASSIST REMEMBERING SAFETY FOR ALL FUNCTIONAL TASKS. SHE DEMONSTRATES WITHIN FUNCTIONAL LIMITS BILATERAL UPPER EXTREMITIES FAIR STRENGTH THROUGHOUT TO MAKE BASIC NEEDS AT THIS TIME. STATED ABOVE PATIENT'S PAIN COMPLAINTS, WITH TRANSITIONING AND BILATERAL KNEES OTHERWISE NO COMPLAINTS. PATIENT WAS ORIENTED TO SELF AND CITY ONLY. ASSESSMENT/POC: OCCUPATIONAL THERAPY EVALUATION COMPLETED WITH RECOMMENDATION FOR SKILLED OT ONE TIME A WEEK X4 TO MEET GOALS. PATIENT AND CAREGIVERS WOULD BENEFIT FROM SAFETY EDUCATION REGARDING TRANSFERS AND PROPER USE OF DME EQUIPMENT. ALSO PATIENT AND CAREGIVERS WOULD BENEFIT FROM EDUCATION ON HOME EXERCISE PROGRAM AND ADAPTATIONS TO HOME TO MAKE IT SAFER FOR PATIENT WITH HER DECLINING COGNITIVE STATUS. PATIENT AND FAMILY IN AGREEMENT WITH OT EVAL AND PLAN OF CARE. MD OFFICE NOTIFIED OF OT EVAL AND PLAN OF CARE. UNKNOWN FOLLOW UP APPOINTMENTS AT THIS TIME] Goal Patient Goal - TO GET STRAIG HTENED OUT Goal Provider Goal - A PLAN OF CARE WILL BE ESTABLISHED THAT MEETS PATIENT'S FDC NEEDS AND INCLUDES PATIENT GOAL FOR HOME HEALTH. Goal Provider Goal - PATIENT / CAREGIVER WILL VERBALIZE UNDERSTANDING OF EFFECTS OF URINARY INCONTINENCE BY THE END OF THE CERTIFICATION PERIOD. Goal Provider Goal - URINE SPECIMEN WILL BE OBTAINED PRN FOR SIGNS AND SYMPTOMS OF UTI AND RESULTS WILL BE REPORTED TO PHYSICIAN THROUGHOUT THE CERTIFICATION PERIOD. Goal Provider Goal - PATIENT/CAREGIVER WILL VERBALIZE UNDERSTANDING OF GENITOURINARY DISEASE PROCESS, AND EXACERBATIONS OF GENITOURINARY DISEASE WILL BE PROMPTLY IDENTIFIED FOR EARLY INTERVENTION THROUGHOUT THE CERTIFICATION PERIOD. Goal Provider Goal - OCCUPATIONAL THERAPY EVALUATION TO BE COMPLETED WITH RECOMMENDATIONS AND WRITTEN PLAN OF TREATMENT ESTABLISHED FOR THE PHYSICIANS SIGNATURE. Goal Provider Goal - COMMUNITY ASSOCIATION MANAGER TO COMPLETE EVALUATION TO ADDRESS THE PATIENTS SOCIAL AND EMOTIONAL FACTORS AND/OR WRITTEN PLAN OF TREATMENT ESTABLISHED FOR THE PHYSICIAN'S SIGNATURE. Goal Provider Goal - PATIENT / CAREGIVER WILL VERBALIZE UNDERSTANDING OF BARRIERS PREVENTING PROPER CARE AND DEMONSTRATE MEASURES TO ELIMINATE THOSE BARRIERS DURING THIS EPISODE. Goal Provider Goal - CHANGES IN NEUROLOGIC STATUS WILL BE IDENTIFIED AND REPORTED TO THE PHYSICIAN FOR PROMPT INTERVENTION OF ASSOCIATED RISK. PATIENT/CAREGIVER WILL VERBALIZE/DEMONSTRATE APPROPRIATE SAFETY MEASURES TO PREVENT INJURY BY THE END OF THE CERTIFICATION PERIOD. Goal Provider Goal - PATIENT/CAREGIVER WILL VERBALIZE/DEMONSTRATE THE ABILITY TO MANAGE CIRCULATORY DISEASE PROCESS AND EXACERBATIONS WILL BE IDENTIFIED FOR EARLY INTERVENTION THROUGHOUT THE CERTIFICATION PERIOD. Goal Provider Goal - A PHYSICAL THERAPY EVALUATION TO BE COMPLETED WITH RECOMMENDATIONS AND/OR WRITTEN PLAN OF TREATMENT ESTABLISHED FOR PHYSICIANS SIGNATURE. Goal Provider Goal - PATIENT/CAREGIVER WILL VERBALIZE SIGNS AND SYMPTOMS OF HYPERTENSION AND WILL BE ABLE TO DEMONSTRATE ABILITY TO MANAGE EXACERBATION BY END OF THE EPISODE. Goal Provider Goal - PATIENT/CAREGIVER WILL VERBALIZE/DEMONSTRATE UNDERSTANDING OF TEACHING RELATED TO ALTERED SKIN INTEGRITY BY END OF CERTIFICATION PERIOD. Goal Provider Goal - PATIENT/CAREGIVER WILL VERBALIZE/DEMONSTRATE KNOWLEDGE AND MANAGEMENT OF COPD BY END OF EPISODE. Goal Provider Goal - PATIENT/CARGIVER WILL VERBALIZE UNDERSTANDING OF ANEMIA INCLUDING SIGNS AND SYMPTOMS, MANAGEMENT OF COMPLICATIONS, AND PRESCRIBED TREATMENT REGIMEN BY END OF EPISODE. Goal Provider Goal - PATIENT WILL HAVE SUPPORT MEASURES ESTABLISHED TO PREVENT HOSPITALIZATION AND ED USE AND PATIENT/CAREGIVER WILL VERBALIZE/DEMONSTRATE METHODS TO REDUCE AVOIDABLE HOSPITALIZATION AND ED USE BY END OF EPISODE. Goal Provider Goal - PATIENT/CAREGIVER WILL VERBALIZE UNDERSTANDING OF DISCHARGE PLANNING INSTRUCTIONS BY DATE OF DISCHARGE. Goal Provider Goal - PATIENT/CAREGIVER WILL VERBALIZE/DEMONSTRATE EFFECTIVE ENVIRONMENTAL SAFETY AND FALL PREVENTION STRATEGIES, WILL REMAIN SAFE IN THE COMMUNITY, AND WILL BE FREE OF DANGER TO SELF AND OTHERS THROUGHOUT THE CERTIFICATION PERIOD. Goal Provider Goal - PATIENT/CAREGIVER WILL DEMONSTRATE UNDERSTANDING OF PHARMACOLOGIC AND NONPHARMACOLOGIC PAIN CONTROL MEASURES AND PATIENT WILL HAVE IMPROVEMENT IN PAIN INTERFERING WITH ACTIVITY EVIDENCED BY PAIN CONTROLLED AT LEVEL OF 7 OR LESS BY END OF CERTIFICATION PERIOD. Goal Provider Goal - PATIENT/CAREGIVER WILL VERBALIZE UNDERSTANDING OF PRESSURE ULCER PREVENTION BY END OF THE EPISODE. Goal Provider Goal - PATIENT/CAREGIVER WILL VERBALIZE UNDERSTANDING OF EDUCATION PROVIDED ON MEDICATIONS BY THE END OF THE CERTIFICATION PERIOD. Goal Provider Goal - NONE Goal Provider Goal - OCCUPATIONAL THERAPIST TO EVALUATE PATIENT SECONDARY TO FUNCTIONAL DEFICITS/SAFETY CONCERNS IDENTIFIED DURING EVALUATION. PATIENT/CAREGIVER WILL PERFORM THERAPEUTIC EXERCISE/S AND DEMONSTRATE PARTICIPATION IN A HOME PROGRAM. PATIENT/CAREGIVER WILL DEMONSTRATE SAFE TRANSFERS USING APPROPRIATE ASSISTIVE DEVICE, BODY MECHANICS AND EQUIPMENT. CAREGIVER/PATIENT WILL DEMONSTRATE/VERBALIZE UNDERSTANDING OF RECOMMENDATIONS TO INCREASE SAFETY IN THE HOME AND FALL PREVENTION. PATIENT/CAREGIVER WILL DEMONSTRATE IMPROVED ABILITY TO PERFORM ACTIVITIES OF DAILY LIVING. Progress Notes Progress Notes <paragraph>[Visit Date: 2024 by ANEESH COLLINS LPN]:</paragraph><paragraph>SNV 12/28 ABNORMAL VITALS: N.A FALLS: NO FALLS MEDICATION CHANGES: NONE OBSERVATION AND ASSESSMENT PROVIDED: PATIENT IS ALERT AND ORIENTED X2 COOPERATIVE DURING VISIT. PATIENT'S NIECE AND [id number] HELPING PATIENT WITH ADLS. PATIENT DENIES ANY NEW OR WORSENING SYMPTOMS. VSS, LS CLEAR, SKIN CDI, TR EDEMA BLE, COMPLAINS OF KNEE PAIN DUE TO ARTHRITIS TAKES TYLENOL P.R.N. WITH SOME RELIEF. NO ISSUES WITH BOWELS OR BLADDER. APPETITE ADEQUATE. LOTION APPLIED TO BLE. PATIENT TOLERATED WELL. EDUCATION: CHANGING POSITIONS Q 2HRS TO PREVENT SKIN BREAKDOWN, ELEVATE EXTREMITIES TO REDUCE EDEMA INTERVENTIONS NEEDED AT NEXT VISIT: ASSESSMENT COMMUNICATION WITH MD: Steve NEXT MD APPOINTMENT: 01/03 ORTHO, 06/20 PCP PT AND CAREGIVER INSTRUCTED TO CALL [facility] WITH ANY QUESTIONS OR CONCERNS AND/OR CHANGES IN CONDITION. CAREGIVER VERBALIZED UNDERSTANDING ...</paragraph> Encounters Start Date/Time End Date/Time Encounter Type Admission Type Attending [facility] Facility Care Department Encounter ID Discharge Date Discharge Status Discharge Condition Discharge Reason Percent Goals Met 2024-11-25 00:00:00 2025-01-23 00:00:00 Outpatient [facility] [id number] 36.59
== END 2025-01-03 14:48 | disposition home or self-care (01) ==
LOC: HO.HOS 13:58
PROVIDERS: Visit Provider Orthopaedic Surgery
DX: M17.0 Bilateral primary osteoarthritis of knee (principal)
CPT/HCPCS: 20610; 99203

== ENCOUNTER → 2025-01-03 13:59 | Outpatient (BNV) | payer MEDICARE, OTHER, SELFPAY | PROVIDERS: Visit Provider Radiology Diagnostic Radiology | DX: M17.0 Bilateral primary osteoarthritis of knee (principal) | CPT/HCPCS: 73562 ==

== ENCOUNTER → 2025-01-29 23:59 | Outpatient (BNV) | payer MEDICARE, OTHER, SELFPAY | PROVIDERS: Visit Provider Internal Medicine | DX: M17.0 Bilateral primary osteoarthritis of knee (principal); J44.9 Chronic obstructive pulmonary disease, unspecified | CPT/HCPCS: G0179 ==

== ENCOUNTER → 2025-02-14 23:59 | Outpatient (BNV) | payer MEDICARE, OTHER, SELFPAY | DX: J44.9 Chronic obstructive pulmonary disease, unspecified (principal); I73.9 Peripheral vascular disease, unspecified; M17.0 Bilateral primary osteoarthritis of knee | CPT/HCPCS: G0180 ==

== ENCOUNTER 2025-04-11 14:22 | Outpatient (AMB) | payer MEDICARE, OTHER, SELFPAY ==
--- OUTSIDE RECORDS SUMMARY | 2024-01-25 09:30 | XMS_ITS ---
Author Organization [facility] Address [address] [place] [address] Care Team Providers Care Nuclear Technologist Name Role Phone [place] ERWIN, Boubacar Primary Care Provider Concepción Law [phone] Encounters Encounter Location Date Provider Diagnosis [facility] [address] [place] [address] 01/25/2024 Concepción Solis Plan Of Treatment No Information Progress Notes * Yumiko MARIE MDOB:09/1939 (85 yo F)Acc No.[id number]:01/25/2024 Progress Note Patient: Yumiko JANE Provider: Charlie Solis DPM :1940 A ge:83 Y S ex:Female Date:01/25/2024 Address:[address] [facility] Pcp:Boubacar Delarosa MD Subjective: * Chief Complaints: [...] 0 01/25/2024 Generated for Drewi amita/[place]/eTransmitting on: 0 04/11/2025 06:09 PM EDT
[2025-04-11 14:34] VITALS: BMI 19.3
--- NOTE | 2025-04-11 14:34 | A.OFFVIS_ITS ---
Vital Signs 04/11/25 14:34 Height 5 ft 8 in Weight 127 lb BMI 19.3 Intake Visit Reasons: Inj-B/l knee Durolane inj Intake Note: Yumiko is an 85 year old woman who presents today for bilateral Durolane knee injections. She describes her knee pains as sharp in nature. The patient states that at times both of her knees will give out. She has had cortisone injections in the past which gave her temporary relief. She wishes to hold off on surgery if at all possible. Allergies Penicillins (PENICILLINS) Allergy (Intermediate, Verified 04/11/25 14:34) RASH halothane (HALOTHANE) Adverse Reaction (Intermediate, Verified 04/11/25 14:34) ELEVATED LIVER ENZYMES Medication List - Last Reviewed 04/11/25 by HIEU Dial acetaminophen ER (Tylenol Arthritis Pain) 1,300 mg PO Q8H ammonium lactate 12% 1 appl topical BID diclofenac sodium 1% (Voltaren Arthritis Pain) 4 grams topical QID trazodone 25 mg (1/2 x 50 mg) PO BEDTIME PRN PFSH Medical History (Updated 04/11/25 @ 15:51 by Cristóbal Bridges MD) Acute deep vein thrombosis of left lower extremity Hypertension COPD (chronic obstructive pulmonary disease) Allergic rhinitis Surgical History History of surgery No history of previous surgery Family History Mother No problems noted. Father No problems noted. Social History Household Members: Children Housing: House Do you presently have visiting nurse or other home services: Yes Alcohol intake: never Patient Tobacco Use Status: Never used Tobacco Tobacco use type: Cigarette e-Cigarette/Vaping Use: Never Used Second Hand Smoke Exposure: No service: No Current occupational status: retired Cognitive needs: Yes (Walker, cane, wheelchair) Hearing needs: No Vision needs: Yes (reading glasses) Physical Exam Vital Signs: BMI result Body Mass Index 19.3 Extrem Other: Bilateral knee examination shows minimal effusions, palpable crepitus with range of motion, pain with range of motion Office Procedures AMB Joint Injection/Aspiration Joint Injection/Aspiration Primary Site: left knee Prep: site was prepped using aseptic technique Injected: 60 mg of (Durolane viscosupplementation) and 1% plain lidocaine Procedure: The patient tolerated the procedure well Coding 90025 - Large joint Procedure code (CPT) selection complete AMB Joint Injection/Aspiration Joint Injection/Aspiration Primary Site: right knee Prep: site was prepped using aseptic technique Injected: 60 mg of (Durolane viscosupplementation) and 1% plain lidocaine Procedure: The patient tolerated the procedure well Coding 22367 - Large joint Procedure code (CPT) selection complete Results Reviewed Results Reviewed: X-rays of the patient's bilateral knees taken previously show joint space narrowing, subchondral sclerosis, no acute bony abnormalities Assessment & Plan Assessment & Plan (1) Osteoarthritis of left knee: Code(s): M17.12 - Unilateral primary osteoarthritis, left knee Category: Medical (2) Osteoarthritis of right knee: Code(s): M17.11 - Unilateral primary osteoarthritis, right knee Category: Medical Plan Yumiko presents with bilateral knee pains due to osteoarthritis. The risks and benefits of bilateral knee Durolane injections were discussed at length with the patient. The patient wished to proceed. She tolerated the injections well. Because of the patient's bilateral knee instability due to the arthritis I also had her fitted with bilateral knee braces. I do feel that the knee braces are a medical necessity to help prevent future falls because of her symptoms of instability. The patient also requests a referral to Podiatry for foot care. She will contact me prior to her follow-up appointment in 3 months should any questions or concerns arise. Feel free to call me at any time should questions regarding her orthopedic management arise. I spent 22 minutes in reviewing the patient's records and imaging studies, seeing the patient and documenting in the medical record. Orders: Orders AMB Joint Injection/Aspiration Today M17.11 - Unilateral primary osteoar thritis, right knee AMB Joint Injection/Aspiration Today M17.12 - Unilateral primary osteoarthritis, left knee Referrals Podiatry Referral M79.671 - Pain in right foot, M79.672 - Pain in left foot Coding Level of Care Code Procedure Only Diagnoses Osteoarthritis of left knee M17.12 Osteoarthritis of right knee M17.11 CPT Codes Coding - 43881 Large joint: 28844 - Large joint ([id number]) Coding - 67327 Large joint: 91360 - Large joint ([id number])
--- OUTSIDE RECORDS SUMMARY | 2025-04-11 18:09 | XMS_ITS | Clinical Summary ---
Author Organization [facility] Address [address] [place] [id number] Phone Care Team Providers Care Motor Coach Operator Name Role Phone Pcp, Unknown Primary Care Provider Unavailabl e Allergies Active Allergy Reactions Criticality Noted Date Comments Penicillins 01/19/2018 Medications montelukast (SINGULAIR) 10 mg tablet Take 10 mg by mouth nightly. Active lisinopril (PRINIVIL,ZESTR IL) 10 MG tablet Take 20 mg by mouth daily. Active fluticasone-sheron meterol (ADVAIR DISKUS) 100-50 mcg/dose DISKUS Inhale 100 mcg/actuation of fluticasone into the lungs 2 (two) times a day. Active brimonidine (ALPHAGAN P) 0.1 % Drop Place 1 drop into each eye daily. Active oxyCODONE 5 MG immediate release tablet Take 1 tablet (5 mg total) by mouth every 6 (six) hours as needed for moderate pain. Pt. may request partial fill 8 tablet 8 Active Social History Tobacco Use Types Packs/Day Years Used Date Smoking Tobacco: Never Smokeless Tobacco: Never Alcohol Use Standard Drinks/Week Comments No 0 (1 standard drink = 0.6 oz pur e alcohol) Education Answer Date Recorded Are you interested in more education? Not on omer e 11/26/2022 Are you concerned about learning? Not on file 11/26/2022 No 11/26/2022 No 11/26/2022 Digital Access Answer Date Recorded No 12/27/2022 No 12/27/2022 No 12/27/2022 Reliable internet access at home? Not on file 12/27/2022 Device with a working camera? Not on file Comments Unknown Sex and Gender Information Value Date Recorded Sex Assigned at Female 01/19/2018 11:32 AM EDT Legal Sex Female 10:12 PM EDT Gender Identity Female 01/19/2018 11:32 AM EDT Sexual Orientation Choose not to disclose 2017 11:32 AM EDT Last Filed Vital Signs Vital Sign Reading Time Taken Comments Blood Pressure 136/76 01/19/2018 2:04 PM EDT Pulse 74 01/19/2018 2:04 PM EDT Temperature 36.8 C (98.2 F) 01/19/2018 2:04 PM EDT Respiratory Rate 16 01/19/2018 2:04 PM EDT Oxygen Saturation 98% 01/19/2018 11:27 AM EDT Inhaled Oxygen Concentration - - Weight 68 kg (150 lb) 02/27/2018 5:36 PM EDT Height 170.2 cm (5' 7 ) 02/27/2018 5:36 PM EDT Body Mass Index 23.49 02/27/2018 5:36 PM EDT Plan of Treatment Not on file Medical Devices Not on file Insurance MEDICARE PART A & B [facility] MEDICARE SUPPLEMENT MEDICARE PART A & B [employer] MEDICARE SUPPLEMENT MEDICARE PART A & B Member Subscriber Plan / Payer ( fective 2005-) Name:Yumiko Pearce Member ID:[id number] Relation to Subscriber:Self Name:Yumiko Pearce Subscriber ID:[id number] Payer ID:[id number] Group ID:Not on file Type:Medicare Address: [employer] [address] [employer] MEDICARE SUPPLEMENT [facility]IC[facility] & [facility] EX[facility]ION MEDICARE SUPPLEMENT MEDICARE PART A & B [facility] [employer] MEDICARE SUPPLEMENT MEDICARE PART A & B Member Subscriber Plan / Payer (Ef fective 2005-Present) Name:Yumiko Pearce Member ID:[id number] Relation to Subscriber:Self Name:Yumiko Pearce Subscriber ID:[id number] Payer ID:[id number] Group ID:Not on file Type:Medicare Address: [employer] [address] [facility] [employer] MEDICARE SUPPLEMENT MEDICARE PART A & B [employer] MEDICARE SUPPLEMENT MEDICARE PART A & B [employer] [place] [phone] MEDICARE PART A & B [facility] [employer] MEDICARE SUPPLEMENT Care Teams Motor Coach Operator Relationship Specialty Start Date End Date Pcp, Unknown PCP - General 01/25/20 Additional Source Comments The information contained in this document represents components of the legal health record. It is not the complete legal health record.[facility]
--- OUTSIDE RECORDS SUMMARY | 2025-04-11 18:09 | XMS_ITS | Encounter Summary ---
Author Organization [facility] Address [address] [place] [address] Care Team Providers Care Stoker Erector And Servicer Name Role Phone Federico Bowman MD Primary Care Provider [phone] Encounter Details Date Type Department Care Team (Late st Contact Info) Description 07/21/2024 Lab Requisition [facility] - Main Lab [address] [facility] [place] [address] Federico Bowman MD [address] [place] [address] Essential (primary) hypertension Social History [...] LAB CHEMISTRY METHOD 07/23/2024 10:19 AM EST [facility] Potassium 4.4 3.5 - 5.5 mmol/L LAB CHEMISTRY METHOD 07/23/2024 10:19 AM EST [facility] Chloride 110 96 - 110 mmol/L LAB CHEMISTRY METHOD 07/23/2024 10:19 AM [facility] CO2 29 21 - 32 mmol/L LAB CHEMISTRY METHOD 07/23/2024 10:19 AM [facility] Anion Gap 4 3 - 11 LAB CHEMISTRY METHOD 07/23/2024 10:19 AM [facility] Glucose 76 70 - 100 mg/dL LAB CHEMISTRY METHOD 07/23/2024 10:19 AM [facility] BUN 16 5 - 25 mg/dL LAB CHEMISTRY METHOD 07/23/2024 10:19 AM [facility] Creatinine 0.88 0.50 - 1.10 mg/dL LAB CHEMISTRY METHOD 07/23/2024 10:19 AM [facility] eGFR 65 >=60 mL/min/1. 73m2 LAB CHEMISTRY METHOD 07/23/2024 10:19 AM [facility] Comment:Calculation based on the Chronic Kidney Disease Epidemiology Collaboration (CKD-EPI) equation refit without adjustment for race. BUN/Creatinine Ratio 18.2 LAB CHEMISTRY METHOD 07/23/2024 10:19 AM [facility] Calcium 9.1 8.5 - 10.5 mg/dL LAB CHEMISTRY METHOD 07/23/2024 10:19 AM [facility] AST (SGOT) 12 10 - 42 unit/L LAB CHEMISTRY METHOD 07/23/2024 10:19 AM [facility] ALT (SGPT) 12 10 - 60 unit/L LAB CHEMISTRY METHOD 07/23/2024 10:19 AM [facility] Alkaline Phosphatase 84 42 - 121 unit/L LAB CHEMISTRY METHOD 07/23/2024 10:19 AM [facility] Total Protein 5.3(L) 6.0 - 8.0 g/dL LAB CHEMISTRY METHOD 07/23/2024 10:19 AM [facility] Albumin 2.7(L) 3.2 - 5.0 g/dL LAB CHEMISTRY METHOD 07/23/2024 10:19 AM [facility] Total Bilirubin 0.4 0.0 - 1.4 mg/dL LAB CHEMISTRY METHOD 07/23/2024 10:19 AM [facility] Blood Venous blood specimen / Unknown Venipuncture / Unknown 07/23/2024 5:10 AM EST 07/23/2024 9:38 AM EST us Federico Bowman MD LAB BLOOD ORDERABLES Final Resu lt [facility] [address] [place] [address], * (ABNORMAL) Complete blood count (07/23/2024 5:10 AM EST) WBC 6.0 4.8 - 10.8 K/mcL LAB HEMETOLOGY METHOD 07/23/2024 9:52 AM [facility] RBC 3.60(L) 3.80 - 4.80 M/[facility] LAB HEMETOLOGY METHOD 07/23/2024 9:52 AM [facility] Hemoglobin 11.1(L) 11.5 - 16.0 g/dL LAB HEMETOLOGY METHOD 07/23/2024 9:52 AM [facility] Hematocrit 36.0 35.0 - 47.0 % LAB HEMETOLOGY METHOD 07/23/2024 9:52 AM [facility] MCV 99.7(H) 79.0 - 98.0 FL LAB HEMETOLOGY METHOD 07/23/2024 9:52 AM [facility] MCH 30.7 27.0 - 32.0 pcg LAB HEMETOLOGY METHOD 07/23/2024 9:52 AM [facility] MCHC 30.8(L) 32.0 - 37.0 g/dL LAB HEMETOLOGY METHOD 07/23/2024 9:52 AM EST [facility] RDW 14.4 11.0 - 15.0 % LAB HEMETOLOGY METHOD 07/23/2024 9:52 AM EST [facility] Platelets 321 130 - 400 K/mcL LAB HEMETOLOGY METHOD 07/23/2024 9:52 AM [facility] MPV 10.5 7.0 - 11.0 FL LAB HEMETOLOGY METHOD 07/23/2024 9:52 AM EST [facility] NRBC 0.0 <1.0 % LAB HEMETOLOGY METHOD 07/23/2024 9:52 AM [facility] NRBC Absolute 0.00 <0.10 K/mcL LAB HEMETOLOGY METHOD 07/23/2024 9:52 AM [facility] Blood Venous blood specimen / Unknown Venipuncture / Unknown 07/23/2024 5:10 AM EST 07/23/2024 9:33 AM EST us Federico Bowman MD LAB BLOOD ORDERABLES Final Resu lt [facility] [address] [place] [address], documented in this encounter Visit Diagnoses Diagnosis Essential (primary) hypertension Unspecified essential hypertension documented in this encounter Care Teams Stoker Erector And Servicer Relationship Specialty Start Date End Date Federico Bowman MD [address] [place] [phone] PCP - General Internal Medicine 07/04/24 documented as of this encounter
--- OUTSIDE RECORDS SUMMARY | 2025-04-11 18:09 | XMS_ITS | Encounter Summary ---
Author Organization [facility] Address [address] [place] [address] Care Team Providers Care Material Chaser Name Role Phone Federico Bowman MD Primary Care Provider [phone] Encounter Details Date Type Department Care Team (Late st Contact Info) Description 06/29/2024 Lab Requisition [facility] - Main Lab [address] [facility] [place] [address] Federico Bowman MD [address] [place] [address] Essential (primary) hypertension Social History [...] LAB CHEMISTRY METHOD 07/02/2024 9:07 AM EST [facility] Potassium 4.7 3.5 - 5.5 mmol/L LAB CHEMISTRY METHOD 07/02/2024 9:07 AM EST [facility] Chloride 109 96 - 110 mmol/L LAB CHEMISTRY METHOD 07/02/2024 9:07 AM [facility] CO2 27 21 - 32 mmol/L LAB CHEMISTRY METHOD 07/02/2024 9:07 AM [facility] Anion Gap 7 3 - 11 LAB CHEMISTRY METHOD 07/02/2024 9:07 AM [facility] Glucose 81 70 - 100 mg/dL LAB CHEMISTRY METHOD 07/02/2024 9:07 AM [facility] BUN 14 5 - 25 mg/dL LAB CHEMISTRY METHOD 07/02/2024 9:07 AM [facility] Creatinine 0.82 0.50 - 1.10 mg/dL LAB CHEMISTRY METHOD 07/02/2024 9:07 AM [facility] eGFR 71 >=60 mL/min/1. 73m2 LAB CHEMISTRY METHOD 07/02/2024 9:07 AM [facility] Comment:Calculation based on the Chronic Kidney Disease Epidemiology Collaboration (CKD-EPI) equation refit without adjustment for race. BUN/Creatinine Ratio 17.1 LAB CHEMISTRY METHOD 07/02/2024 9:07 AM [facility] Calcium 8.8 8.5 - 10.5 mg/dL LAB CHEMISTRY METHOD 07/02/2024 9:07 AM [facility] AST (SGOT) 15 10 - 42 unit/L LAB CHEMISTRY METHOD 07/02/2024 9:07 AM [facility] ALT (SGPT) 14 10 - 60 unit/L LAB CHEMISTRY METHOD 07/02/2024 9:07 AM [facility] Alkaline Phosphatase 109 42 - 121 unit/L LAB CHEMISTRY METHOD 07/02/2024 9:07 AM [facility] Total Protein 5.4(L) 6.0 - 8.0 g/dL LAB CHEMISTRY METHOD 07/02/2024 9:07 AM [facility] Albumin 2.8(L) 3.2 - 5.0 g/dL LAB CHEMISTRY METHOD 07/02/2024 9:07 AM [facility] Total Bilirubin 0.5 0.0 - 1.4 mg/dL LAB CHEMISTRY METHOD 07/02/2024 9:07 AM [facility] Blood Venous blood specimen / Unknown Venipuncture / Unknown 07/02/2024 5:02 AM EST 07/02/2024 8:22 AM EST us Federico Bowman MD LAB BLOOD ORDERABLES Final Resu lt [facility] [address] [place] [address], * (ABNORMAL) Complete blood count (07/02/2024 5:02 AM EST) WBC 7.2 4.8 - 10.8 K/mcL LAB HEMETOLOGY METHOD 07/02/2024 8:43 AM [facility] RBC 3.80 3.80 - 4.80 M/mcL LAB HEMETOLOGY METHOD 07/02/2024 8:43 AM [facility] Hemoglobin 11.7 11.5 - 16.0 g/dL LAB HEMETOLOGY METHOD 07/02/2024 8:43 AM [facility] Hematocrit 37.5 35.0 - 47.0 % LAB HEMETOLOGY METHOD 07/02/2024 8:43 AM [facility] MCV 98.2(H) 79.0 - 98.0 FL LAB HEMETOLOGY METHOD 07/02/2024 8:43 AM [facility] MCH 30.6 27.0 - 32.0 pcg LAB HEMETOLOGY METHOD 07/02/2024 8:43 AM [facility] MCHC 31.2(L) 32.0 - 37.0 g/dL LAB HEMETOLOGY METHOD 07/02/2024 8:43 AM [facility] RDW 13.5 11.0 - 15.0 % LAB HEMETOLOGY METHOD 07/02/2024 8:43 AM EST [facility] Platelets 358 130 - 400 K/mcL LAB HEMETOLOGY METHOD 07/02/2024 8:43 AM EST [facility] MPV 10.8 7.0 - 11.0 FL LAB HEMETOLOGY METHOD 07/02/2024 8:43 AM EST [facility] NRBC 0.0 <1.0 % LAB HEMETOLOGY METHOD 07/02/2024 8:43 AM EST [facility] NRBC Absolute 0.00 <0.10 K/mcL LAB HEMETOLOGY METHOD 07/02/2024 8:43 AM EST [facility] Blood Venous blood specimen / Unknown Venipuncture / Unknown 07/02/2024 5:02 AM EST 07/02/2024 8:20 AM EST us Federico Bowman MD LAB BLOOD ORDERABLES Final Resu lt [facility] [address] [place] [address], documented in this encounter Visit Diagnoses Diagnosis Essential (primary) hypertension Unspecified essential hypertension documented in this encounter Care Teams Material Chaser Relationship Specialty Start Date End Date Federico Bowman MD [address] [place] [address] PCP - General Internal Medicine 07/04/24 documented as of this encounter
--- OUTSIDE RECORDS SUMMARY | 2025-04-11 18:09 | XMS_ITS | Encounter Summary ---
Author Organization [facility] Address [address] [place] [address] Care Team Providers Care Appraisal Technician Name Role Phone Federico Bowman MD Primary Care Provider [phone] Encounter Details Date Type Department Care Team (Late st Contact Info) Description 07/08/[address] [facility] - Main Lab 299 [facility] [place] [address] Federico Bowman MD [address] [place] [address] Essential (primary) hypertension Social History [...] LAB HEMETOLOGY METHOD 07/09/2024 9:54 AM EST [facility] RBC 4.20 3.80 - 4.80 M/mcL LAB HEMETOLOGY METHOD 07/09/2024 9:54 AM EST [facility] Hemoglobin 12.7 11.5 - 16.0 g/dL LAB HEMETOLOGY METHOD 07/09/2024 9:54 AM EST [facility] Hematocrit 41.7 35.0 - 47.0 % LAB HEMETOLOGY METHOD 07/09/2024 9:[address] [facility] MCV 100.2(H) 79.0 - 98.0 FL LAB HEMETOLOGY METHOD 07/09/2024 9:[address] [facility] MCH 30.5 27.0 - 32.0 pcg LAB HEMETOLOGY METHOD 07/09/2024 9:54 AM EST [facility] MCHC 30.5(L) 32.0 - 37.0 g/dL LAB HEMETOLOGY METHOD 07/09/2024 9:[address] [facility] RDW 13.9 11.0 - 15.0 % LAB HEMETOLOGY METHOD 07/09/2024 9:[address] [facility] Platelets 406(H) 130 - 400 K/mcL LAB HEMETOLOGY METHOD 07/09/2024 9:54 AM EST [facility] MPV 10.5 7.0 - 11.0 FL LAB HEMETOLOGY METHOD 07/09/2024 9:[address] [facility] NRBC 0.0 <1.0 % LAB HEMETOLOGY METHOD 07/09/2024 9:[address] [facility] NRBC Absolute 0.00 <0.10 K/mcL LAB HEMETOLOGY METHOD 07/09/2024 9:[address] [facility] Blood Venous blood specimen / Unknown Venipuncture / Unknown 07/09/2024 4:55 AM EST 07/09/2024 9:16 AM EST us Federico Bowman MD LAB BLOOD ORDERABLES Final Resu lt [facility] [address] [place] [address], documented in this encounter Visit Diagnoses Diagnosis Essential (primary) hypertension Unspecified essential hypertension documented in this encounter Care Teams Appraisal Technician Relationship Specialty Start Date End Date Federico Bowman MD [address] [place] [address] PCP - General Internal Medicine 07/04/24 documented as of this encounter
--- OUTSIDE RECORDS SUMMARY | 2025-04-11 18:09 | XMS_ITS | Encounter Summary ---
Author Organization [facility] Address [address] [place] [address] Care Team Providers Care Cnc Applications Engineer Name Role Phone Federico Bowman MD Primary Care Provider [phone] Encounter Details Date Type Department Care Team (Late st Contact Info) Description 07/09/2024 Lab Requisition [facility] - Main Lab 299 [facility] [place] [address] Federico Bowman MD [address] [place] [address] Essential (primary) hypertension Social History [...] LAB CHEMISTRY METHOD 07/10/2024 10:27 AM EST [facility] Potassium 4.3 3.5 - 5.5 mmol/L LAB CHEMISTRY METHOD 07/10/2024 10:27 AM EST [facility] Chloride 111(H) 96 - 110 mmol/L LAB CHEMISTRY METHOD 07/10/2024 10:27 AM EST [facility] LAB CO2 28 21 - 32 mmol/L LAB CHEMISTRY METHOD 07/10/2024 10:27 AM [facility] LAB Anion Gap 5 3 - 11 LAB CHEMISTRY METHOD 07/10/2024 10:27 AM [facility] LAB Glucose 75 70 - 100 mg/dL LAB CHEMISTRY METHOD 07/10/2024 10:27 AM [facility] BUN 13 5 - 25 mg/dL LAB CHEMISTRY METHOD 07/10/2024 10:27 AM [facility] LAB Creatinine 0.76 0.50 - 1.10 mg/dL LAB CHEMISTRY METHOD 07/10/2024 10:27 AM [facility] LAB eGFR 77 >=60 mL/min/1. 73m2 LAB CHEMISTRY METHOD 07/10/2024 10:27 AM [facility] LAB Comment:Calculation based on the Chronic Kidney Disease Epidemiology Collaboration (CKD-EPI) equation refit without adjustment for race. BUN/Creatinine Ratio 17.1 LAB CHEMISTRY METHOD 07/10/2024 10:27 AM [facility] LAB Calcium 8.6 8.5 - 10.5 mg/dL LAB CHEMISTRY METHOD 07/10/2024 10:27 AM [facility] LAB AST (SGOT) 10 10 - 42 unit/L LAB CHEMISTRY METHOD 07/10/2024 10:27 AM [facility] LAB ALT (SGPT) 12 10 - 60 unit/L LAB CHEMISTRY METHOD 07/10/2024 10:27 AM [facility] LAB Alkaline Phosphatase 91 42 - 121 unit/L LAB CHEMISTRY METHOD 07/10/2024 10:27 AM [facility] Total Protein 5.1(L) 6.0 - 8.0 g/dL LAB CHEMISTRY METHOD 07/10/2024 10:27 AM [facility] Albumin 2.7(L) 3.2 - 5.0 g/dL LAB CHEMISTRY METHOD 07/10/2024 10:27 AM [facility] Total Bilirubin 0.4 0.0 - 1.4 mg/dL LAB CHEMISTRY METHOD 07/10/2024 10:27 AM EST [facility] LAB Blood Venous blood specimen / Unknown Venipuncture / Unknown 07/10/2024 4:56 AM EST 07/10/2024 9:43 AM EST us Federico Bowman MD LAB BLOOD ORDERABLES Final Resu lt [facility] [address] [place] [address], documented in this encounter Visit Diagnoses Diagnosis Essential (primary) hypertension Unspecified essential hypertension documented in this encounter Care Teams Cnc Applications Engineer Relationship Specialty Start Date End Date Federico Bowman MD [address] [place] [address] PCP - General Internal Medicine 07/04/24 documented as of this encounter
--- OUTSIDE RECORDS SUMMARY | 2025-04-11 18:09 | XMS_ITS | Encounter Summary ---
Author Organization [facility] Address [address] [place] [address] Care Team Providers Care Baler Operator Name Role Phone Federico Bowman MD Primary Care Provider [phone] Encounter Details Date Type Department Care Team (Late st Contact Info) Description 07/11/2024 Lab Requisition [facility] - Main Lab [address] [place] [address] Federico Bowman MD [address] [place] [address] Essential (primary) hypertension Social History [...] LAB CHEMISTRY METHOD 07/12/2024 9:45 AM EST [facility] LAB Potassium 4.3 3.5 - 5.5 mmol/L LAB CHEMISTRY METHOD 07/12/2024 9:45 AM EST [facility] Chloride 108 96 - 110 mmol/L LAB CHEMISTRY METHOD 07/12/2024 9:45 AM [facility] LAB CO2 29 21 - 32 mmol/L LAB CHEMISTRY METHOD 07/12/2024 9:45 AM [facility] LAB Anion Gap 5 3 - 11 LAB CHEMISTRY METHOD 07/12/2024 9:45 AM [facility] Glucose 72 70 - 100 mg/dL LAB CHEMISTRY METHOD 07/12/2024 9:45 AM [facility] BUN 12 5 - 25 mg/dL LAB CHEMISTRY METHOD 07/12/2024 9:45 AM [facility] Creatinine 0.93 0.50 - 1.10 mg/dL LAB CHEMISTRY METHOD 07/12/2024 9:45 AM [facility] LAB eGFR 61 >=60 mL/min/1. 73m2 LAB CHEMISTRY METHOD 07/12/2024 9:45 AM [facility] Comment:Calculation based on the Chronic Kidney Disease Epidemiology Collaboration (CKD-EPI) equation refit without adjustment for race. BUN/Creatinine Ratio 12.9 LAB CHEMISTRY METHOD 07/12/2024 9:45 AM [facility] Calcium 9.1 8.5 - 10.5 mg/dL LAB CHEMISTRY METHOD 07/12/2024 9:45 AM [facility] Blood Venous blood specimen / Unknown 07/12/2024 5:10 AM EST 07/12/2024 9:10 AM EST us Federico Bowman MD LAB BLOOD ORDERABLES Final Resu lt [facility] LAB [address] [place] [address], * (ABNORMAL) Complete blood count (07/12/2024 5:10 AM EST) WBC 5.6 4.8 - 10.8 K/mcL LAB HEMETOLOGY METHOD 07/12/2024 9:22 AM [facility] RBC 3.80 3.80 - 4.80 M/mcL LAB HEMETOLOGY METHOD 07/12/2024 9:22 AM [facility] Hemoglobin 11.5 11.5 - 16.0 g/dL LAB HEMETOLOGY METHOD 07/12/2024 9:22 AM [facility] Hematocrit 37.1 35.0 - 47.0 % LAB HEMETOLOGY METHOD 07/12/2024 9:22 AM [facility] MCV 97.9 79.0 - 98.0 FL LAB HEMETOLOGY METHOD 07/12/2024 9:22 AM [facility] MCH 30.3 27.0 - 32.0 pcg LAB HEMETOLOGY METHOD 07/12/2024 9:22 AM [facility] MCHC 31.0(L) 32.0 - 37.0 g/dL LAB HEMETOLOGY METHOD 07/12/2024 9:22 AM [facility] RDW 13.8 11.0 - 15.0 % LAB HEMETOLOGY METHOD 07/12/2024 9:22 AM [facility] Platelets 313 130 - 400 K/mcL LAB HEMETOLOGY METHOD 07/12/2024 9:22 AM [facility] MPV 10.2 7.0 - 11.0 FL LAB HEMETOLOGY METHOD 07/12/2024 9:22 AM [facility] NRBC 0.0 <1.0 % LAB HEMETOLOGY METHOD 07/12/2024 9:22 AM [facility] NRBC Absolute 0.00 <0.10 K/mcL LAB HEMETOLOGY METHOD 07/12/2024 9:22 AM [facility] Blood Venous blood specimen / Unknown 07/12/2024 5:10 AM EST 07/12/2024 9:11 AM EST Federico Bowman MD LAB BLOOD ORDERABLES Final Resu lt [facility] [address] [place] [address], documented in this encounter Visit Diagnoses Diagnosis Essential (primary) hypertension Unspecified essential hypertension documented in this encounter Care Teams Baler Operator Relationship Specialty Start Date End Date Federico Bowman MD [address] [place] [address] PCP - General Internal Medicine 07/04/24 documented as of this encounter
--- OUTSIDE RECORDS SUMMARY | 2025-04-11 18:09 | XMS_ITS | Clinical Summary ---
Author Organization 299 [facility] Address [address] [place] [address] Phone Care Team Providers Care Nitriles Lab Technician Name Role Phone Federico Bowman MD Primary Care Provider [phone] Social History Tobacco Use Types Packs/Day Years [...] Patients (1 - 1-dose 75+ series) 2015 Cholesterol Screening (Lipid Panel) 06/27/2024 Falls Risk Assessment 06/27/2024 Medicare Annual Wellness Visit 06/27/2024 Osteoporosis Screening (Bone Density Screening) 06/27/2024 Social Influencers of Health Screening 06/27/2024 Depression Screening 08/01/2024 COVID-19 Vaccine ( season) 2025 Influenza Vaccine (#1) 2025 06/20/2024 Hypertension/CHF/CAD Annual BMP Blood Test 07/26/2025 07/26/2024, 07/23/2024, 07/19/2024, Additional history exists HIB Vaccines Aged Out No longer eligi [...] mmol/L LAB CHEMISTRY METHOD 07/26/2024 11:58 AM [facility] Potassium 4.3 3.5 - 5.5 mmol/L LAB CHEMISTRY METHOD 07/26/2024 11:58 AM [facility] Chloride 109 96 - 110 mmol/L LAB CHEMISTRY METHOD 07/26/2024 11:58 AM [facility] LAB CO2 26 21 - 32 mmol/L LAB CHEMISTRY METHOD 07/26/2024 11:58 AM [facility] LAB Anion Gap 6 3 - 11 LAB CHEMISTRY METHOD 07/26/2024 11:58 AM [facility] LAB Glucose 71 70 - 100 mg/dL LAB CHEMISTRY METHOD 07/26/2024 11:58 AM [facility] BUN 15 5 - 25 mg/dL LAB CHEMISTRY METHOD 07/26/2024 11:58 AM [facility] Creatinine 0.78 0.50 - 1.10 mg/dL LAB CHEMISTRY METHOD 07/26/2024 11:58 AM [facility] LAB eGFR 75 >=60 mL/min/1. 73m2 LAB CHEMISTRY METHOD 07/26/2024 11:58 AM EST [facility] LAB Comment:Calculation based on the Chronic Kidney Disease Epidemiology Collaboration (CKD-EPI) equation refit without adjustment for race. BUN/Creatinine Ratio 19.2 LAB CHEMISTRY METHOD 07/26/2024 11:58 AM [facility] LAB Calcium 8.2(L) 8.5 - 10.5 mg/dL LAB CHEMISTRY METHOD 07/26/2024 11:58 AM [facility] Blood Venous blood specimen / Unknown Venipuncture / Unknown 07/26/2024 5:09 AM EST 07/26/2024 11:23 AM EST us Federico Bowman MD LAB BLOOD ORDERABLES Final Resu lt [facility]) [facility] [address] [place] [address], from Last 3 Months or Most Recently Relevant to Health Maintenance Insurance [facility] Care Teams Nitriles Lab Technician Relationship Specialty Start Date End Date Federico Bowman MD [address] [place] [address] PCP - General Internal Medicine 07/04/24
--- OUTSIDE RECORDS SUMMARY | 2025-04-11 18:09 | XMS_ITS | Encounter Summary ---
Author Organization [facility] Address [address] [place] [address] Phone Care Team Providers Care Lacer And Tier Name Role Phone Conrado Hampton MD Primary Care Provider Pcp, Unknown Primary Care Provider Unavailabl e Reason for Referral * MRI/CAT Scan - Closed Specialty Diagnoses / Procedures Referred By Contac t Referred To Contact Radiology Diagnoses Low back pain radiating to both legs Left foot drop Procedures MRI Lumbar Spine Darwin Segura DO Phone: tel: fax: mailto:[email or web address] Referral ID Status Reason Start Date Expiration Date Visits Re quested Visits Authorized [id number] Closed 02/21/2018 02/21/2019 1 1 Encounter Details Date Type Department Care Team (Late st Contact Info) Description 02/21/2018 Ancillary Orders Virtual Department [address] [place] [address] Darwin Segura DO [address] [place] [address] [email or web address] Low back pain radiating to both legs; Left foot drop Social History Tobacco Use Types Packs/Day Years Used Date Smoking Tobacco: Never Smokeless Tobacco: Never Alcohol Use Standard Drinks/Week Comments No 0 (1 standard drink = 0.6 oz pur e alcohol) Comments Unknown Sex and Gender Information Value Date Recorded Sex Assigned at Female 01/19/2018 11:32 AM EDT Legal Sex Female 10:12 PM EDT Gender Identity Female 01/19/2018 11:32 AM EDT Sexual Orientation Choose not to disclose 2017 11:32 AM EDT documented as of this encounter Plan of Treatment Not on file documented as of this encounter Results * MRI LUMBAR SPINE (BONE) WITHOUT CONTRAST (2018 12:27 PM EDT) Anatomical Region Laterality Modality L-spine Magnetic Resonan ce 2018 12:3 8 PM EDT Impressions 2018 12:45 PM EDT Anterior spondylolisthesis of L4 on L5 and L5-S1 with suspected small bilateral L4-L5 pars defects. Relative spinal canal stenosis at these levels evident as well predominantly related to facet arthropathy with left lateral recess and left foraminal encroachment noted as detailed above. S/S: Low back pain, pain radiating to left leg, left foot drop, lumbar spondylosis, spondylolisthesis, spinal stenosis POS - [id number] Narrative 2018 12:45 PM EDT COMPARISON: None TECHNIQUE: Exam performed on a 1.5 Cherelle high-field MRI scanner. Sagittal T1, T2 and STIR, axial T1 and T2 sequences were obtained. FINDINGS: The conus is unremarkable. The levels described presume the presence of 5 lumbar vertebral bodies. There are no plain films present to confirm this. There is grade 1 anterior spondylolisthesis of L4 on L5 and L5 on S1 evident. This appearance is suggestive of bilateral L4 and L5 pars defects. There are bilateral simple renal cysts noted. At T11-T12 there is minor uncinate spurring and disc bulging. No spinal stenosis or disc protrusion is seen. The neuroforamen are patent. At T12-L1 the appearance is unremarkable. At L1-2 no findings of concern are noted. At L2-3 the appearance is unremarkable. L3-4 there is minimal facet arthropathy with the appearance is otherwise unremarkable. At L4-5 the neural canal is narrowed and out of 8 mm with extensive facet arthropathy and left lateral recess impingement. The left neural foramen is compromised by spurring. No disc protrusion is evident. At L5-S1 there is uncinate spurring with a minor disc bulge. The neural canal narrowed to a diameter of 7 mm. The neuroforamen are mildly compromised by spurring bilaterally more so on the left than the right. Procedure Note Marcell Marie MD - 2018 COMPARISON: None TECHNIQUE: Exam performed on a 1.5 Cheerlle high-field MRI scanner. SagittalT1, T2 and STIR, axial T1 and T2 sequences were obtained. FINDINGS: The conus is unremarkable. The levels described presume the presence of 5 lumbar vertebral bodies.There are no plain films present to confirm this. There is grade 1 anterior spondylolisthesis of L4 on L5 and L5 on [id number]. This appearance is suggestive of bilateral L4 and L5 parsdefects. There are bilateral simple renal cysts noted. At T11-T12 there is minor uncinate spurring and disc bulging. No spinalstenosis or disc protrusion is seen. The neuroforamen are patent. At T12-L1 the appearance is unremarkable. At L1-2 no findings of concern are noted. At L2-3 the appearance is unremarkable. L3-4 there is minimal facet arthropathy with the appearance is otherwiseunremarkable. At L4-5 the neural canal is narrowed and out of 8 mm with extensive facetarthropathy and left lateral recess impingement. The left neural foramenis compromised by spurring. No disc protrusion is evident. At L5-S1 there is uncinate spurring with a minor disc bulge. The neuralcanal narrowed to a diameter of 7 mm. The neuroforamen are mildlycompromised by spurring bilaterally more so on the left than the right. IMPRESSION: Anterior spondylolisthesis of L4 on L5 and L5-S1 with suspected smallbilateral L4-L5 pars defects. Relative spinal canal stenosis at theselevels evident as well predominantly related to facet arthropathy withleft lateral recess and left foraminal encroachment noted as detailedabove. S/S: Low back pain, pain radiating to left leg, left foot drop, lumbarspondylosis, spondylolisthesis, spinal stenosis POS - [id number] us Darwin Segura DO IMG MR XSPECIALTY Final Resu lt documented in this encounter Visit Diagnoses Diagnosis Low back pain radiating to both legs Lumbago Left foot drop Other acquired deformity of ankle and foot Low back pain radiating to both legs Lumbago Left foot drop Other acquired deformity of ankle and foot documented in this encounter Care Teams Lacer And Tier Relationship Specialty Start Date End Date Conrado Hampton MD [address] [place] [address] [address] [place] [address] PCP - General Pulmonary Disease 12/12/17 01/24/20 Pcp, Unknown PCP - General 01/25/20 documented as of this encounter Additional Source Comments The information contained in this document represents components of the legal health record. It is not the complete legal health record.[facility]
--- OUTSIDE RECORDS SUMMARY | 2025-04-11 18:09 | XMS_ITS | Encounter Summary ---
Author Organization [facility] Address [address] [place] [address] Phone Care Team Providers Care Mat Making Machine Tender Name Role Phone Conrado Hampton MD Primary Care Provider Pcp, Unknown Primary Care Provider Unavailabl e Encounter Details Date Type Department Care Team (Latest Contact Info) Description 12/12/2017 Transcribe Orders [facility] Laboratory [address] [place] [address] Anish Garrido MD [address] [place] [id number] Symptomatic menopausal or female climacteric states (Primary Dx); Obesity of endocrine origin Social History Tobacco Use Types Packs/Day Years [...] documented as of this encounter Results * Progesterone (12/12/2017 10:50 AM EDT) PROGESTERONE 1.50 ng/mL [facility] Comment: FEMALE: Follicular: 0.057 - 0.893 ng/ml Luteal: 1.83 - 23.9 ng/ml Blood 12/12/2017 10:5 0 AM EDT 12/12/2017 10:54 AM EDT Anish Garrido MD LAB BLOOD ORDERABLES Fi nal Result [facility] [address] [place] [address] * (ABNORMAL) Testosterone, total and free (12/12/2017 10:50 AM EDT) FREE TESTOSTERONE 1.03(H) 0.06 - 0.79 ng/dL [facility] Comment: (NOTE) ADDITIONAL INFORMATION Testing performed by [facility]. This test was developed and its performance characteristics determined by [facility] in a manner consistent with CLIA requirements. This test has not been cleared or approved by the U.S. Food and Drug Administration. TESTOSTERONE, TOTAL 103(H) 8 - 60 ng/dL [facility] [place] Comment: (NOTE) ADDITIONAL INFORMATION Testing performed by Liquid Chromatography-Tandem Mass Spectrometry (LC-MS/MS). This test was developed and its performance characteristics determined by [facility] in a manner consistent with CLIA requirements. This test has not been cleared or approved by the U.S. Food and Drug Administration. Blood 12/12/2017 10:5 0 AM EDT 12/12/2017 10:54 AM EDT us Anish Garrido MD LAB BLOOD ORDERABLES Fi nal Result [facility] [address] [place] [address] * Estradiol (12/12/2017 10:50 AM EDT) ESTRADIOL 65 pg/mL [facility] Comment: FEMALE: Follicular: Less than 12 to 233 pg/ml Midcycle: 41 - 398 pg/ml Luteal: 22 - 341 pg/ml Postmenopausal: less than 5 - 138 pg/ml Blood 12/12/2017 10:5 0 AM EDT 12/12/2017 10:54 AM EDT us Anish Garrido MD LAB BLOOD ORDERABLES Fi nal Result [facility] [address] [place] [address] * (ABNORMAL) DHEA-Sulfate (12/12/2017 10:50 AM EDT) DHEAS 335(H) <15 - 157 mcg/dL [facility] Blood 12/12/2017 10:5 0 AM EDT 12/12/2017 10:54 AM EDT Anish Garrido MD LAB BLOOD ORDERABLES Fi nal Result Performing Organization Address City/[facility]/ZIP Co de Phone Number [facility] [address] [place] [address] documented in this encounter Visit Diagnoses Diagnosis Symptomatic menopausal or female climacteric states- Primary Obesity of endocrine origin Unspecified endocrine disorder documented in this encounter Care Teams Mat Making Machine Tender Relationship Specialty Start Date End Date Conrado Hampton MD [address] [place] [address] PCP - General Pulmonary Disease 12/12/17 01/24/20 Pcp, Unknown PCP - General 01/25/20 documented as of this encounter Additional Source Comments The information contained in this document represents components of the legal health record. It is not the complete legal health record.[facility]
--- OUTSIDE RECORDS SUMMARY | 2025-04-11 18:09 | XMS_ITS | Encounter Summary ---
Author Organization [facility] Address [address] [place] [address] Care Team Providers Care Live In Caregiver Name Role Phone Federico Bowman MD Primary Care Provider [phone] Encounter Details Date Type Department Care Team (Late st Contact Info) Description 07/24/2024 Lab Requisition [facility] - Main Lab [address] [facility] [email or web address] [address] Federico Bowman MD [address] [place] [address] Essential (primary) hypertension Social History [...] Resu lt [facility] [address] [place] [address], * (ABNORMAL) Complete blood count (07/26/2024 5:09 [...] LAB BLOOD ORDERABLES Final Resu lt [facility] [address] [place] [address], documented in this encounter Visit Diagnoses Diagnosis Essential (primary) hypertension Unspecified essential hypertension documented in this encounter Care Teams Live In Caregiver Relationship Specialty Start Date End Date Federico Bowman MD [address] [place] [address] PCP - General Internal Medicine 07/04/24 documented as of this encounter
--- OUTSIDE RECORDS SUMMARY | 2025-04-11 18:09 | XMS_ITS | Encounter Summary ---
Author Organization [facility] Address [address] [place] [address] Care Team Providers Care Human Resources Benefits Administrator Name Role Phone Federico Bowman MD Primary Care Provider [phone] Encounter Details Date Type Department Care Team (Late st Contact Info) Description 07/13/2024 Lab Requisition [facility] - Main Lab [address] [facility] [place] [address] Federico Bowman MD [address] [place] [address] Essential (primary) hypertension Social History [...] LAB CHEMISTRY METHOD 07/16/2024 11:[address] [facility] Potassium 4.2 3.5 - 5.5 mmol/L LAB CHEMISTRY METHOD 07/16/2024 11:[address] [facility] Chloride 111(H) 96 - 110 mmol/L LAB CHEMISTRY METHOD 07/16/2024 11:41 AM [facility] CO2 25 21 - 32 mmol/L LAB CHEMISTRY METHOD 07/16/2024 11:41 AM [facility] Anion Gap 9 3 - 11 LAB CHEMISTRY METHOD 07/16/2024 11:41 AM [facility] Glucose 79 70 - 100 mg/dL LAB CHEMISTRY METHOD 07/16/2024 11:41 AM [facility] BUN 15 5 - 25 mg/dL LAB CHEMISTRY METHOD 07/16/2024 11:41 AM [facility] Creatinine 0.77 0.50 - 1.10 mg/dL LAB CHEMISTRY METHOD 07/16/2024 11:41 AM [facility] eGFR 76 >=60 mL/min/1. 73m2 LAB CHEMISTRY METHOD 07/16/2024 11:41 AM [facility] Comment:Calculation based on the Chronic Kidney Disease Epidemiology Collaboration (CKD-EPI) equation refit without adjustment for race. BUN/Creatinine Ratio 19.5 LAB CHEMISTRY METHOD 07/16/2024 11:41 AM [facility] Calcium 8.6 8.5 - 10.5 mg/dL LAB CHEMISTRY METHOD 07/16/2024 11:41 AM [facility] AST (SGOT) 12 10 - 42 unit/L LAB CHEMISTRY METHOD 07/16/2024 11:41 AM [facility] ALT (SGPT) 20 10 - 60 unit/L LAB CHEMISTRY METHOD 07/16/2024 11:41 AM [facility] Alkaline Phosphatase 92 42 - 121 unit/L LAB CHEMISTRY METHOD 07/16/2024 11:41 AM [facility] Total Protein 5.1(L) 6.0 - 8.0 g/dL LAB CHEMISTRY METHOD 07/16/2024 11:41 AM [facility] Albumin 2.6(L) 3.2 - 5.0 g/dL LAB CHEMISTRY METHOD 07/16/2024 11:41 AM [facility] Total Bilirubin 0.3 0.0 - 1.4 mg/dL LAB CHEMISTRY METHOD 07/16/2024 11:41 AM [facility] Blood Venous blood specimen / Unknown Venipuncture / Unknown 07/16/2024 5:08 AM EST 07/16/2024 10:15 AM EST us Federico Bowman MD LAB BLOOD ORDERABLES Final Resu lt [facility] [address] [place] [address], * (ABNORMAL) Complete blood count (07/16/2024 5:08 AM EST) WBC 6.9 4.8 - 10.8 K/mcL LAB HEMETOLOGY METHOD 07/16/2024 10:32 AM [facility] RBC 3.50(L) 3.80 - 4.80 M/mcL LAB HEMETOLOGY METHOD 07/16/2024 10:32 AM [facility] Hemoglobin 10.6(L) 11.5 - 16.0 g/dL LAB HEMETOLOGY METHOD 07/16/2024 10:32 AM [facility] Hematocrit 34.3(L) 35.0 - 47.0 % LAB HEMETOLOGY METHOD 07/16/2024 10:32 AM [facility] MCV 99.1(H) 79.0 - 98.0 FL LAB HEMETOLOGY METHOD 07/16/2024 10:32 AM [facility] MCH 30.6 27.0 - 32.0 pcg LAB HEMETOLOGY METHOD 07/16/2024 10:32 AM [facility] MCHC 30.9(L) 32.0 - 37.0 g/dL LAB HEMETOLOGY METHOD 07/16/2024 10:[address] [facility] RDW 14.1 11.0 - 15.0 % LAB HEMETOLOGY METHOD 07/16/2024 10:[address] [facility] Platelets 315 130 - 400 K/mcL LAB HEMETOLOGY METHOD 07/16/2024 10:[address] [facility] MPV 10.7 7.0 - 11.0 FL LAB HEMETOLOGY METHOD 07/16/2024 10:[address] [facility] NRBC 0.0 <1.0 % LAB HEMETOLOGY METHOD 07/16/2024 10:32 AM [facility] NRBC Absolute 0.00 <0.10 K/mcL LAB HEMETOLOGY METHOD 07/16/2024 10:32 AM [facility] Blood Venous blood specimen / Unknown Venipuncture / Unknown 07/16/2024 5:08 AM EST 07/16/2024 10:12 AM EST us Federico Bowman MD LAB BLOOD ORDERABLES Final Resu lt [facility] [address] [place] [address], documented in this encounter Visit Diagnoses Diagnosis Essential (primary) hypertension Unspecified essential hypertension documented in this encounter Care Teams Human Resources Benefits Administrator Relationship Specialty Start Date End Date Federico Bowman MD [address] [place] [address] PCP - General Internal Medicine 07/04/24 documented as of this encounter
--- OUTSIDE RECORDS SUMMARY | 2025-04-11 18:09 | XMS_ITS | Encounter Summary ---
Author Organization [facility] Address [address] [place] [address] Care Team Providers Care Orthotic Assistant Name Role Phone Federico Bowman MD Primary Care Provider [phone] Encounter Details Date Type Department Care Team (Late st Contact Info) Description 07/18/2024 Lab Requisition [facility] - Main Lab [address] [facility] [place] [address] Federico Bowman MD [address] [place] [address] Essential (primary) hypertension Social History [...] mmol/L LAB CHEMISTRY METHOD 07/19/2024 1:05 PM [facility] CO2 30 21 - 32 mmol/L LAB CHEMISTRY METHOD 07/19/2024 1:05 PM [facility] Anion Gap 6 3 - 11 LAB CHEMISTRY METHOD 07/19/2024 1:05 PM [facility] Glucose 69(L) 70 - 100 mg/dL LAB CHEMISTRY METHOD 07/19/2024 1:05 PM [facility] BUN 16 5 - 25 mg/dL LAB CHEMISTRY METHOD 07/19/2024 1:05 PM [facility] Creatinine 0.82 0.50 - 1.10 mg/dL LAB CHEMISTRY METHOD 07/19/2024 1:05 PM [facility] eGFR 71 >=60 mL/min/1. 73m2 LAB CHEMISTRY METHOD 07/19/2024 1:05 PM [facility] Comment:Calculation based on the Chronic Kidney Disease Epidemiology Collaboration (CKD-EPI) equation refit without adjustment for race. BUN/Creatinine Ratio 19.5 LAB CHEMISTRY METHOD 07/19/2024 1:05 PM [facility] Calcium 9.1 8.5 - 10.5 mg/dL LAB CHEMISTRY METHOD 07/19/2024 1:05 PM [facility] Blood Venous blood specimen / Unknown Venipuncture / Unknown 07/19/2024 5:03 AM EST 07/19/2024 11:27 AM EST us Federico Bowman MD LAB BLOOD ORDERABLES Final Resu lt [facility] [address] [place] [address], * (ABNORMAL) Complete blood count (07/19/2024 5:03 AM EST) WBC 6.0 4.8 - 10.8 K/mcL LAB HEMETOLOGY METHOD 07/19/2024 12:41 PM [facility] RBC 4.00 3.80 - 4.80 M/mcL LAB HEMETOLOGY METHOD 07/19/2024 12:41 PM [facility] Hemoglobin 12.3 11.5 - 16.0 g/dL LAB HEMETOLOGY METHOD 07/19/2024 12:41 PM [facility] Hematocrit 40.1 35.0 - 47.0 % LAB HEMETOLOGY METHOD 07/19/2024 12:41 PM [facility] MCV 100.3(H) 79.0 - 98.0 FL LAB HEMETOLOGY METHOD 07/19/2024 12:41 PM [facility] MCH 30.8 27.0 - 32.0 pcg LAB HEMETOLOGY METHOD 07/19/2024 12:41 PM [facility] MCHC 30.7(L) 32.0 - 37.0 g/dL LAB HEMETOLOGY METHOD 07/19/2024 12:41 PM [facility] RDW 14.6 11.0 - 15.0 % LAB HEMETOLOGY METHOD 07/19/2024 12:41 PM [facility] Platelets 343 130 - 400 K/mcL LAB HEMETOLOGY METHOD 07/19/2024 12:41 PM [facility] MPV 10.4 7.0 - 11.0 FL LAB HEMETOLOGY METHOD 07/19/2024 12:41 PM [facility] NRBC 0.0 <1.0 % LAB HEMETOLOGY METHOD 07/19/2024 12:41 PM [facility] NRBC Absolute 0.00 <0.10 K/mcL LAB HEMETOLOGY METHOD 07/19/2024 12:41 PM [facility] Blood Venous blood specimen / Unknown Venipuncture / Unknown 07/19/2024 5:03 AM EST 07/19/2024 11:27 AM EST us Federico Bowman MD LAB BLOOD ORDERABLES Final Resu lt [facility] [address] [place] [address], documented in this encounter Visit Diagnoses Diagnosis Essential (primary) hypertension Unspecified essential hypertension documented in this encounter Care Teams Orthotic Assistant Relationship Specialty Start Date End Date Federico Bowman MD [address] [place] [address] PCP - General Internal Medicine 07/04/24 documented as of this encounter
--- OUTSIDE RECORDS SUMMARY | 2025-04-11 18:09 | XMS_ITS | Encounter Summary ---
Author Organization [facility] Address [address] [place] [address] Phone Care Team Providers Care Panama Hat Blocker Name Role Phone Conrado Hampton MD Primary Care Provider Pcp, Unknown Primary Care Provider Unavailabl e Encounter Details Date Type Department Care Team (Late st Contact Info) Description 02/21/2018 Procedure Pass [facility], [address] [address] Social History Tobacco Use Types Packs/Day Years [...] on file documented as of this encounter Visit Diagnoses Not on filedocumented in this encounter Care Teams Panama Hat Blocker Relationship Specialty Start Date End Date Conrado Hampton MD [address] [place] [address] Drive [address] [place] [address] PCP - General Pulmonary Disease 12/12/17 01/24/20 Pcp, Unknown PCP - General 01/25/20 documented as of this encounter Additional Source Comments The information contained in this document represents components of the legal health record. It is not the complete legal health record.[facility]
--- OUTSIDE RECORDS SUMMARY | 2025-04-11 18:09 | XMS_ITS | Encounter Summary ---
Author Organization [facility] [address] Address [address] [place] [address] Care Team Providers Care Coiled Tubing Supervisor Name Role Phone Federico Bowman MD Primary Care Provider [phone] Encounter Details Date Type Department Care Team (Late st Contact Info) Description 07/04/[address] [facility] - Main Lab [address] [facility] [place] [address] Federico Bowman MD [address] [place] [address] Essential (primary) hypertension Social History [...] LAB CHEMISTRY METHOD 07/05/2024 8:56 AM EST [facility] Potassium 4.6 3.5 - 5.5 mmol/L LAB CHEMISTRY METHOD 07/05/2024 8:56 AM EST [facility] Chloride 108 96 - 110 mmol/L LAB CHEMISTRY METHOD 07/05/2024 8:56 AM [facility] CO2 28 21 - 32 mmol/L LAB CHEMISTRY METHOD 07/05/2024 8:56 AM [facility] Anion Gap 5 3 - 11 LAB CHEMISTRY METHOD 07/05/2024 8:56 AM [facility] Glucose 84 70 - 100 mg/dL LAB CHEMISTRY METHOD 07/05/2024 8:56 AM [facility] BUN 15 5 - 25 mg/dL LAB CHEMISTRY METHOD 07/05/2024 8:56 AM [facility] Creatinine 0.83 0.50 - 1.10 mg/dL LAB CHEMISTRY METHOD 07/05/2024 8:56 AM [facility] eGFR 70 >=60 mL/min/1. 73m2 LAB CHEMISTRY METHOD 07/05/2024 8:56 AM [facility] Comment:Calculation based on the Chronic Kidney Disease Epidemiology Collaboration (CKD-EPI) equation refit without adjustment for race. BUN/Creatinine Ratio 18.1 LAB CHEMISTRY METHOD 07/05/2024 8:56 AM [facility] Calcium 8.8 8.5 - 10.5 mg/dL LAB CHEMISTRY METHOD 07/05/2024 8:56 AM [facility] Blood Venous blood specimen / Unknown Venipuncture / Unknown 07/05/2024 4:57 AM EST 07/05/2024 8:14 AM EST us Federico Bowman MD LAB BLOOD ORDERABLES Final Resu lt [facility] [address] [place] [address], * (ABNORMAL) Complete blood count (07/05/2024 4:57 AM EST) WBC 6.9 4.8 - 10.8 K/mcL LAB HEMETOLOGY METHOD 07/05/2024 8:31 AM [facility] RBC 3.80 3.80 - 4.80 M/mcL LAB HEMETOLOGY METHOD 07/05/2024 8:31 AM [facility] Hemoglobin 11.3(L) 11.5 - 16.0 g/dL LAB HEMETOLOGY METHOD 07/05/2024 8:31 AM [facility] Hematocrit 36.6 35.0 - 47.0 % LAB HEMETOLOGY METHOD 07/05/2024 8:31 AM [facility] MCV 97.1 79.0 - 98.0 FL LAB HEMETOLOGY METHOD 07/05/2024 8:31 AM [facility] MCH 30.0 27.0 - 32.0 pcg LAB HEMETOLOGY METHOD 07/05/2024 8:31 AM [facility] MCHC 30.9(L) 32.0 - 37.0 g/dL LAB HEMETOLOGY METHOD 07/05/2024 8:31 AM [facility] RDW 13.4 11.0 - 15.0 % LAB HEMETOLOGY METHOD 07/05/2024 8:31 AM [facility] Platelets 366 130 - 400 K/mcL LAB HEMETOLOGY METHOD 07/05/2024 8:31 AM [facility] LAB MPV 10.8 7.0 - 11.0 FL LAB HEMETOLOGY METHOD 07/05/2024 8:31 AM [facility] NRBC 0.0 <1.0 % LAB HEMETOLOGY METHOD 07/05/2024 8:31 AM [facility] NRBC Absolute 0.00 <0.10 K/mcL LAB HEMETOLOGY METHOD 07/05/2024 8:31 AM [facility] Blood Venous blood specimen / Unknown Venipuncture / Unknown 07/05/2024 4:57 AM EST 07/05/2024 8:14 AM EST Federico Bowman MD LAB BLOOD ORDERABLES Final Resu lt [facility] ([facility]) [facility] [address] [place] [address], documented in this encounter Visit Diagnoses Diagnosis Essential (primary) hypertension Unspecified essential hypertension documented in this encounter Care Teams Coiled Tubing Supervisor Relationship Specialty Start Date End Date Federico Bowman MD [address] [place] [address] PCP - General Internal Medicine 07/04/24 documented as of this encounter
--- OUTSIDE RECORDS SUMMARY | 2025-04-11 18:09 | XMS_ITS | Encounter Summary ---
Author Organization [facility] Address [address] [place] [address] Phone Care Team Providers Care Feed Adviser Name Role Phone Pcp, Unknown Primary Care Provider Unavailabl e Encounter Details Date Type Department Care Team (Latest Contact Info) Description 04/14/2020 Transcribe Orders [facility] Laboratory [address] [place] [address] Robert Darling, DO [address] [place] [address] Symptomatic menopausal or female climacteric states (Primary Dx); Essential hypertension, benign; Asthmatic bronchitis without complication, unspecified asthma severity, unspecified whether persistent; Glaucoma, unspecified glaucoma type, unspecified laterality; Avitaminosis D Social History Tobacco Use Types Packs/Day Years [...] documented as of this encounter Results * PREGNENOLONE, SERUM (04/14/2020 3:07 PM EDT) PREGNENOLONE 149 33 - 248 NG/DL [facility] Comment: (NOTE) ADDITIONAL INFORMATION This test was developed and its performance characteristics determined by [facility] in a manner consistent with CLIA requirements. This test has not been cleared or approved by the U.S. Food and Drug Administration. Blood 04/14/2020 3:07 PM EDT 04/14/2020 3:14 PM EDT [facility] BLOOD ORDERABLES Final Resu lt Performing Organization Address [facility] de Phone Number [facility] MED/PATH [address] [place] [address] * Sex hormone binding globulin (04/14/2020 3:07 PM EDT) SEX HORMONE BIND GLOB 60 nmol/L [facility] Comment: (NOTE) REFERENCE VALUE 18-144 (non-) Blood 04/14/2020 3:07 PM EDT 04/14/2020 3:14 PM EDT [facility] BLOOD ORDERABLES Final Resu lt Performing Organization Address [facility] de Phone Number [facility] MED/PATH [address] [place] [address] * (ABNORMAL) DHEA-SULFATE (04/14/2020 3:07 PM EDT) DHEAS 241(H) 5.3 - 124 mcg/dL [facility] Blood 04/14/2020 3:07 PM EDT 04/14/2020 3:14 PM EDT [facility] BLOOD ORDERABLES Final Resu lt Performing Organization Address [facility] de Phone Number [facility] MED/PATH [address] [address] * (ABNORMAL) 25-OH vitamin D (04/14/2020 3:07 PM EDT) 25 OH VIT D (TOTAL) 74(H) 30 - 60 ng/mL [facility] Blood 04/14/2020 3:07 PM EDT 04/14/2020 3:15 PM EDT [facility] BLOOD ORDERABLES Final Resu lt Performing Organization Address [facility] Co de Phone Number [facility] [address] [place] [address] * Testosterone, total and free (04/14/2020 3:07 PM EDT) [facility] FREE TESTOSTERONE 0.43 0.06 - 0.76 ng/dL [facility] Comment: (NOTE) ADDITIONAL INFORMATION Testing performed by [facility]. This test was developed and its performance characteristics determined by [facility] in a manner consistent with CLIA requirements. This test has not been cleared or approved by the U.S. Food and Drug Administration. TESTOSTERONE, TOTAL 31 8 - 60 ng/dL [facility] Comment: (NOTE) ADDITIONAL INFORMATION Testing performed by Liquid Chromatography-Tandem Mass Spectrometry (LC-MS/MS). This test was developed and its performance characteristics determined by [facility] in a manner consistent with CLIA requirements. This test has not been cleared or approved by the U.S. Food and Drug Administration. Blood 04/14/2020 3:07 PM EDT 04/14/2020 3:14 PM EDT [facility] BLOOD ORDERABLES Final Resu lt Performing Organization Address [facility] de Phone Number [facility] [address] [place] [phone] * Progesterone (04/14/2020 3:07 PM EDT) PROGESTERONE 1.56 ng/mL [facility] Comment: FEMALE: Follicular: 0.057 - 0.893 ng/ml Luteal: 1.83 - 23.9 ng/ml Blood 04/14/2020 3:07 PM EDT 04/14/2020 3:15 PM EDT [facility] BLOOD ORDERABLES Final Resu lt Performing Organization Address [facility] Co de Phone Number [address] [address] * Estradiol (04/14/2020 3:07 PM EDT) ESTRADIOL 44 pg/mL [facility] Comment: FEMALE: Follicular: Less than 12 to 233 pg/ml Midcycle: 41 - 398 pg/ml Luteal: 22 - 341 pg/ml Postmenopausal: less than 5 - 138 pg/ml Blood 04/14/2020 3:07 PM EDT 04/14/2020 3:15 PM EDT [facility] BLOOD ORDERABLES Final Resu lt Performing Organization Address [facility] Co de Phone Number [address] [address] documented in this encounter Visit Diagnoses Diagnosis Symptomatic menopausal or female climacteric states- Primary Essential hypertension, benign Asthmatic bronchitis without complication, unspecified asthma severity, unspecified whether persistent Glaucoma, unspecified glaucoma type, unspecified laterality Avitaminosis D Unspecified vitamin D deficiency documented in this encounter Care Teams Feed Adviser Relationship Specialty Start Date End Date Pcp, Unknown PCP - General 01/25/20 documented as of this encounter Additional Source Comments The information contained in this document represents components of the legal health record. It is not the complete legal health record.[facility]
--- OUTSIDE RECORDS SUMMARY | 2025-04-11 18:10 | XMS_ITS | Patient Health Record ---
Author Organization [facility] Address [address] [place] [address] Care Team Providers Care Finish Remover Name Role Phone Boubacar Delarosa MD Primary Care Provider Concepción Law Unavailable [phone] Allergies Allergen (clinical drug ingredient) Drug/Non Drug Allergy documented on EMR Reaction Allergy Type Onset Date Status amoxicillin Amoxicillin hives Drug Allergy Act nadeen Penicillin mouth sores Drug Allergy Acti ve Reason For Referral No Information Medications Medication SIG (Take, Route, Frequency, Duration) Notes Start Date End Date Status Alphagan P 1 drop into affected eye twice a day Unknown Lisinopril 20 MG 1 tablet Orally Once a day Active Advair HFA Unknown Advair Diskus 100-50 MCG/ACT INHALE ONE PUFF BY MOUTH TWICE A DAY Inhalation; Duration: 30 Active Singulair 10 MG 1 tablet Orally Once a day Active Montelukast Sodium 10 MG 1 tablet Orally Once a day; Duration: 30 day(s) Active Lumigan 0.01 % 1 drop into affected eye in the evening Ophthalmic Once a day Active Social History Tobacco Use: Social History Observation Description Date Details (start date - stop date) Never Smoker NA - NA Tobacco Use/Smoking Question Answer Notes Are you a: nonsmoker Additional Findings: Tobacco Non-User Current no n-smoker Alcohol Screen Question Answer Notes Did you have a drink containing alcohol in the p ast year? No Points 0 Interpretation Negative Tobacco use other than smoking: Question Answer Notes Are you an other tobacco user? No Problems Problem Type SNOMED Code ICD Code Onset Dates Problem Status W/U Status Risk Notes Problem Acquired hammer toe of right foot (8009453528947210) Other hammer toe(s) (acquired), right foot (M20.41) Active confirmed Problem Acquired hammer toe of left foot (2030991917478705) Other hammer toe(s) (acquired), left foot (M20.42) Active confirmed Problem Bilateral atherosclerosis of arteries of lower limbs (disorder) (45044489465122143 ) Unspecified atherosclerosis of [place] arteries of extremities, bilateral legs (I70.203) Active confirmed Problem Unsteady gait (66783814) Unsteady gait (R26.81) Active confirmed Problem 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) Active confirmed Problem Plantarflexion deformity of right foot (finding) (8088371596207976) Equinus contracture of right ankle (M24.571) Active confirmed Plan Of Treatment Pending Test Test Name Order Date X ray : Foot, left 3V 11/29/2018 X ray : Foot, right 3V 11/29/2018 [id number] NAIL, 6 OR MORE 04/07/2018 [id number] NAIL, 6 OR MORE 06/30/2018 [id number] SKIN LESIONS, OVER 4 04/07/20 18 [id number] SKIN LESIONS, OVER 4 06/30/20 18 Insurance Providers Payer Name Payer Address Payer Phone Subscriber Number Group Number Insured Name Patient Relationship to Insured Coverage Start Date Coverage End Date Medicare [employer] [address] [place] [address] [id number] Yumiko Pearce Self - patient is the insured [facility] [address] [place] [address] [id number] Yumiko Pearce Self - patient is the insured Medical (General) History Medical History History ICD Code Arthritis asthma Broken bones Cataracts Glaucoma High blood pressure Sciatica Back,Hip,and Knee pain Surgical History Surgery Date(Month/Year) femur 01/10/2015
== END 2025-04-11 15:02 | disposition home or self-care (01) ==
LOC: HO.HOS 14:23
PROVIDERS: Visit Provider Orthopaedic Surgery
DX: M17.0 Bilateral primary osteoarthritis of knee (principal)
CPT/HCPCS: 20610

== ENCOUNTER → 2025-04-11 14:22 | Outpatient (BNVA) | payer MEDICARE, OTHER, SELFPAY | PROVIDERS: Visit Provider Orthopaedic Surgery | DX: M17.0 Bilateral primary osteoarthritis of knee (principal) | CPT/HCPCS: 20610; J2003; J7318 ==

== ENCOUNTER 2025-05-01 11:14 | Outpatient (AMB) | payer MEDICARE, OTHER, SELFPAY ==
--- NOTE | 2025-05-01 11:17 | A.OFFVIS_ITS ---
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, Amnesia Vacuum Cleaner Operator Required: No Accompanied by: Son Allergies Penicillins (PENICILLINS) Allergy (Intermediate, Verified 05/01/25 11:18) RASH halothane (HALOTHANE) Adverse Reaction (Intermediate, Verified 05/01/25 11:18) ELEVATED LIVER ENZYMES Medication List - Last Reconciled 05/01/25 by Marilee Herrera MD acetaminophen ER (Tylenol Arthritis Pain) 1,300 mg PO Q8H ammonium lactate 12% 1 appl topical BID diclofenac sodium 1% (Voltaren Arthritis Pain) 4 grams topical QID trazodone 25 mg (1/2 x 50 mg) PO BEDTIME PRN HPI Comments Details: 85y/o female comes with her son and daughter in law for evaluation of memory issues. Last Jun 2024 she had a fall - found a bruise in the sacral area. she was in pain so ambulance was called 2 days prior to fall she was healthy and walking on the treadmill. CT showed some bleeding in the ventricles- was transferred to [facility]. she was in rehab and did OK. Jul 2024 she had Covid and family noticed decline in walking , cognition In October 2024- she was confused - found to have dehydration. CT showed enlargement of ventricles. she has salomón knee pain which limits her walking she uses a walker . she is afraid of falling. she denies urinary incontinence. She reports mild short term memory issues. she used to have excellent memory . [facility] Medical History (Updated 05/01/25 @ 12:03 by Marilee Herrera MD) NPH (normal pressure hydrocephalus) Gait disorder Cognitive change Parkinsons disease Acute deep vein thrombosis of left lower extremity Hypertension COPD (chronic obstructive pulmonary disease) Allergic rhinitis Surgical History History of surgery No history of previous surgery Family History Mother No problems noted. Father No problems noted. Social History Household Members: Children Housing: House Do you presently have visiting nurse or other home services: Yes Alcohol intake: never Patient Tobacco Use Status: Never used Tobacco Tobacco use type: Cigarette e-Cigarette/Vaping Use: Never Used Second Hand Smoke Exposure: No service: No Current occupational status: retired Cognitive needs: Yes (Walker, cane, wheelchair) Hearing needs: No Vision needs: Yes (reading glasses) Physical Exam Vital Signs: Last Vital Signs Pulse 69 05/01/25 11:18 BP 132/76 05/01/25 11:18 Pulse Ox 95 05/01/25 11:18 Oxygen Delivery Method Room Air 05/01/25 11:18 Const General: cooperative and comfortable Nutritional Appearance: average body habitus Eyes Pupils: Equal, round and reactive pupils present Neuro Other: gait - difficulty getting up from wheel chair she walks with walker at home. General: tone normal and moves all extremities Cranial nerves: Yes Equal, round and reactive pupils present, Yes Bilaterally intact EOM present, Yes Nystagmus not present, Yes Normal facial strength present, Yes Midline tongue present and Yes Ability to bilaterally elevate shoulders present Cognition (Neuro): normal cognition Motor exam (neuro): 5/5 motor strength present throughout and Normal motor muscle tone present throughout Deep tendon reflexes (DTR's): Right triceps reflex intensity grade: 2+, Left triceps reflex intensity grade: 2+, Rt Biceps (C5, C6): 2+, Left biceps reflex intensity grade: 2+, Right brachioradialis reflex intensity grade: 2+, Left brachioradialis reflex intensity grade: 2+, Right patellar reflex intensity grade: 2+ and Left patellar reflex intensity grade: 2+ Coordination: [id number] test normal Orientation What is the (year) (season) (date) (day) (month)?: season, date and month Where are we (state) (county) (town or city) (hospital) (floor)?: state, county, town or city, hospital/clinic and floor Registration Name of 3 unrelated objects clearly and slowly, then ask patient to repeat all 3 of them. (1st repeat determines score. Make sure they can repeat all three): object 1, object 2 and object 3 Attention & Calculation (CHOOSE ONE) Spell WORLD backwards (DLROW): 5 letters Recall Ask patient to repeat the 3 items from question #3.: object 1 and object 2 Language Show patient a wristwatch & ask what it is. Repeat for pencil.: watch and pencil Ask the patient to repeat the phrase 'No ifs, ands, or buts' after you.: correct Ask the patient to 'take a piece of paper with their right hand' 'fold paper in half' 'place paper on floor': take paper in right hand, fold paper in half and place paper on floor Print the sentence 'CLOSE YOUR EYES' on a piece. If patient actually closes eyes then score.: followed written direction Give patient a blank piece of paper & ask to write a sentence. Score if it contains a noun & verb.: sentence contains subject and verb Ask patient to copy figure of intersecting pentagons exactly. Score if all 10 angles & 2 intersects are included.: all 10 angles present & 2 are intersected Score Score: 27 Results Reviewed Results Reviewed: 10/2024 Prominence of ventricular system more so than subarachnoid spaces with additional findings as described raising the possibility of communicating hydrocephalus including normal pressure hydrocephalus. 2. Small focal intraventricular fat in frontal horn of left lateral ventricle and trigone of right lateral ventricle, unknown source. Intraventricular fat was also seen on previous study dated 06/18/2024. 3. Interval resolution of intraventricular blood. 4. White matter hypodensities may represent chronic small-vessel ischemic changes with component of transependymal flow of CSF. 06/2024 There is prominence of ventricles with layering of high attenuation material, blunt in the occipital horns bilaterally and unclear origin small amount of gas in the frontal horns of lateral ventricles. There are patchy periventricular white matter changes as a sequela of microangiopathy and sulci and ventricular prominence. There is hydrocephalus. Evaluation of osseous structures reveals no fractures. Paranasal sinuses are well-aerated. CT/CT head/brain wo IV con IMPRESSION: Unclear origin intraventricular air and intraventricular hemorrhage with layering of blood. Global volume loss with possible intracerebral Assessment & Plan Assessment & Plan (1) Memory impairment: Comment: did well on MMSE Code(s): R41.3 - Other amnesia Category: Medical (2) Gait disorder: Comment: multifactorial ? NPH , frontal gait , musculoskeletal , astasia abasia Code(s): R26.9 - Unspecified abnormalities of gait and mobility Category: Medical Plan MRI Brain Refer to Neurosurgery opinion for NPH Continue home therapy . she did well on MMSE Orders: Orders Vitamin B12 and Folate Today R41.3 - Other amnesia Erythrocyte Sedimentation Rate Today R41.3 - Other amnesia MR head/brain wo con Today G91.2 - (Idiopathic) normal pressure hydrocephalus Referrals Neurosurgery Referral G91.2 - (Idiopathic) normal pressure hydrocephalus Coding Level of Care Code New Pt Level 4 (86322) Complex EM visit Add On G2211 Diagnoses Memory impairment R41.3 Gait disorder R26.9
[2025-05-01 11:18] VITALS: BP 132/76; PULSE 69; O2SAT 95
--- OUTSIDE RECORDS SUMMARY | 2025-05-01 12:52 | XMS_ITS | Encounter Summary ---
Author Organization [facility] Address [address] [place] [address] Care Team Providers Care Marketing Analyst Name Role Phone Federico Bowman MD Primary Care Provider [phone] Encounter Details Date Type Department Care Team (Late st Contact Info) Description 07/24/2024 Lab Requisition [facility] - Main Lab [address] [facility] [place] [address] Federico Bowman MD [address] [place] [address] Essential (primary) hypertension Social History [...] LAB CHEMISTRY METHOD 07/26/2024 11:58 AM EST [facility] Potassium 4.3 3.5 - 5.5 mmol/L LAB CHEMISTRY METHOD 07/26/2024 11:58 AM EST [facility] Chloride 109 96 - 110 [...] 73m2 LAB CHEMISTRY METHOD 07/26/2024 11:58 AM [facility] Comment:Calculation [...] lt [facility] [address] [place] [address], * (ABNORMAL) Complete blood count (07/26/2024 5:09 AM EST) WBC 3.6(L) 4.8 - 10.8 K/mcL LAB HEMETOLOGY METHOD 07/26/2024 11:34 AM [facility] RBC 3.50(L) 3.80 - 4.80 M/mcL LAB HEMETOLOGY METHOD 07/26/2024 11:34 AM [facility] Hemoglobin 10.8(L) 11.5 - 16.0 g/dL LAB HEMETOLOGY METHOD 07/26/2024 11:34 AM [facility] Hematocrit 34.6(L) 35.0 - 47.0 % LAB HEMETOLOGY METHOD 07/26/2024 11:34 AM [facility] MCV 98.6(H) 79.0 - 98.0 FL LAB HEMETOLOGY METHOD 07/26/2024 11:34 AM [facility] MCH 30.8 27.0 - 32.0 pcg LAB HEMETOLOGY METHOD 07/26/2024 11:34 AM [facility] MCHC 31.2(L) 32.0 - 37.0 g/dL LAB HEMETOLOGY METHOD 07/26/2024 11:34 AM [facility] RDW 14.8 11.0 - 15.0 % LAB HEMETOLOGY METHOD 07/26/2024 11:34 AM [facility] Platelets 268 130 - 400 K/mcL LAB HEMETOLOGY METHOD 07/26/2024 11:34 AM [facility] MPV 10.8 7.0 - 11.0 FL LAB HEMETOLOGY METHOD 07/26/2024 11:34 AM [facility] NRBC 0.0 <1.0 % LAB HEMETOLOGY METHOD 07/26/2024 11:34 AM [facility] NRBC Absolute 0.00 <0.10 K/mcL LAB HEMETOLOGY METHOD 07/26/2024 11:34 AM [facility] Blood Venous blood specimen / Unknown Venipuncture / Unknown 07/26/2024 5:09 AM EST 07/26/2024 11:14 AM EST Federico Bowman MD LAB BLOOD ORDERABLES Final Resu lt [facility]) [facility] [address] [place] [address], documented in this encounter Visit Diagnoses Diagnosis Essential (primary) hypertension Unspecified essential hypertension documented in this encounter Care Teams Marketing Analyst Relationship Specialty Start Date End Date Federico Bowman MD [address] [place] [address] PCP - General Internal Medicine 07/04/24 documented as of this encounter
--- OUTSIDE RECORDS SUMMARY | 2025-05-01 12:52 | XMS_ITS | Encounter Summary ---
Author Organization [facility] Address [address] [place] [address] Phone Care Team Providers Care Cognos Developer Name Role Phone Conrado Hampton MD Primary Care Provider Pcp, Unknown Primary Care Provider Unavailabl e Encounter Details Date Type Department Care Team (Latest Contact Info) Description 12/12/2017 Transcribe Orders [facility] Laboratory [address] [place] [address] Anish Garrido MD [address] [place] [id number] Symptomatic menopausal or female climacteric states (Primary [...] (12/12/2017 10:50 AM EDT) PROGESTERONE 1.50 ng/mL [facility] Comment: FEMALE: Follicular: 0.057 - 0.893 ng/ml Luteal: 1.83 - 23.9 ng/ml Blood 12/12/2017 10:5 0 AM EDT 12/12/2017 10:54 AM EDT Anish Garrido MD LAB BLOOD ORDERABLES Fi nal Result [facility] [address] [place] [address] * (ABNORMAL) Testosterone, total and free (12/12/2017 10:50 AM EDT) FREE TESTOSTERONE 1.03(H) 0.06 - 0.79 ng/dL [facility] Comment: (NOTE) ADDITIONAL INFORMATION Testing performed by [facility]. This test was developed and its performance characteristics determined by [facility] in a manner consistent with CLIA requirements. This test has not been cleared or approved by the U.S. Food and Drug Administration. TESTOSTERONE, TOTAL 103(H) 8 - 60 ng/dL [facility] [place] Comment: (NOTE) ADDITIONAL INFORMATION Testing performed by Liquid Chromatography-Tandem Mass Spectrometry (LC-MS/MS). This test was developed and its performance characteristics determined by [facility] in a manner consistent with CLIA requirements. This test has not been cleared or approved by the U.S. Food and Drug Administration. Blood 12/12/2017 10:5 0 AM EDT 12/12/2017 10:54 AM EDT us Anish Garrido MD LAB BLOOD ORDERABLES Fi nal Result [facility] [address] [place] [address] * Estradiol (12/12/2017 10:50 AM EDT) ESTRADIOL 65 pg/mL [facility] Comment: FEMALE: Follicular: Less than 12 to 233 pg/ml Midcycle: 41 - 398 pg/ml Luteal: 22 - 341 pg/ml Postmenopausal: less than 5 - 138 pg/ml Blood 12/12/2017 10:5 0 AM EDT 12/12/2017 10:54 AM EDT us Anish Garrido MD LAB BLOOD ORDERABLES Fi nal Result [facility] [address] [place] [address] * (ABNORMAL) DHEA-Sulfate (12/12/2017 10:50 AM EDT) DHEAS 335(H) <15 - 157 mcg/dL [facility] Blood 12/12/2017 10:5 0 AM EDT 12/12/2017 10:54 AM EDT Anish Garrido MD LAB BLOOD ORDERABLES Fi nal Result Performing Organization Address City/[facility]/ZIP Co de Phone Number [facility] [address] [place] [address] documented in this encounter Visit Diagnoses Diagnosis Symptomatic menopausal or female climacteric states- Primary Obesity of endocrine origin Unspecified endocrine disorder documented in this encounter Care Teams Cognos Developer Relationship Specialty Start Date End Date Conrado Hampton MD [address] [place] [address] PCP - General Pulmonary Disease 12/12/17 01/24/20 Pcp, Unknown PCP - General 01/25/20 documented as of this encounter Additional Source Comments The information contained in this document represents components of the legal health record. It is not the complete legal health record.[facility]
--- OUTSIDE RECORDS SUMMARY | 2025-05-01 12:52 | XMS_ITS | Clinical Summary ---
Author Organization [address] [facility] Address [address] [place] [address] Phone Care Team Providers Care Heavy Equipment Operator Apprentice Name Role Phone Federico Bowman MD Primary Care Provider [phone] Social History Tobacco Use Types Packs/Day Years [...] mmol/L LAB CHEMISTRY METHOD 07/26/2024 11:58 AM [facility] Potassium 4.3 3.5 - 5.5 mmol/L LAB CHEMISTRY METHOD 07/26/2024 11:58 AM [facility] Chloride 109 96 - 110 mmol/L LAB CHEMISTRY METHOD 07/26/2024 11:58 AM [facility] CO2 26 21 - 32 mmol/L LAB CHEMISTRY METHOD 07/26/2024 11:58 AM [facility] Anion Gap 6 3 - 11 LAB CHEMISTRY METHOD 07/26/2024 11:58 AM [facility] Glucose 71 70 - 100 mg/dL LAB CHEMISTRY METHOD 07/26/2024 11:58 AM [facility] BUN 15 5 - 25 mg/dL LAB CHEMISTRY METHOD 07/26/2024 11:58 AM [facility] Creatinine 0.78 0.50 - 1.10 mg/dL LAB CHEMISTRY METHOD 07/26/2024 11:58 AM [facility] eGFR 75 >=60 mL/min/1. 73m2 LAB CHEMISTRY METHOD 07/26/2024 11:58 AM EST [facility] Comment:Calculation based on the Chronic Kidney Disease Epidemiology Collaboration (CKD-EPI) equation refit without adjustment for race. BUN/Creatinine Ratio 19.2 LAB CHEMISTRY METHOD 07/26/2024 11:58 AM [facility] Calcium 8.2(L) 8.5 - 10.5 mg/dL LAB CHEMISTRY METHOD 07/26/2024 11:58 AM [facility] Blood Venous blood specimen / Unknown Venipuncture / Unknown 07/26/2024 5:09 AM EST 07/26/2024 11:23 AM EST us Federico Bowman MD LAB BLOOD ORDERABLES Final Resu lt [facility]) [facility] [address] [place] [address], from Last 3 Months or Most Recently Relevant to Health Maintenance Insurance [facility] Care Teams Heavy Equipment Operator Apprentice Relationship Specialty Start Date End Date Federico Bowman MD [address] [place] [address] PCP - General Internal Medicine 07/04/24
--- OUTSIDE RECORDS SUMMARY | 2025-05-01 12:52 | XMS_ITS | Clinical Summary ---
Author Organization [facility] Address [address] [place] [address] Phone Care Team Providers Care Forensic Document Examiner Name Role Phone Pcp, Unknown Primary Care [...] file Insurance MEDICARE PART A & B [facility] MEDICARE SUPPLEMENT MEDICARE PART A & B [employer] MEDICARE SUPPLEMENT MEDICARE PART A & B Member Subscriber Plan / Payer ( fective 2005-) Name:Yumiko Pearce Member ID:[id number] Relation to Subscriber:Self Name:Yumiko Pearce Subscriber ID:[id number] Payer ID:[id number] Group ID:Not on file Type:Medicare Address: [address] [employer] MEDICARE SUPPLEMENT MEDIC[facility] PART A & [facility] [employer] MEDICARE SUPPLEMENT MEDICARE PART A & B [facility] MEDICARE SUPPLEMENT MEDICARE PART A & B Member Subscriber Plan / Payer (Ef fective 2005-Present) Name:Yumiko Pearce Member ID:[id number] Relation to Subscriber:Self Name:Yumiko Pearce Subscriber ID:[id number] Payer ID:[id number] Group ID:Not on file Type:Medicare Address: [employer] [address] [facility] [employer] MEDICARE SUPPLEMENT MEDICARE PART A & B [employer] MEDICARE SUPPLEMENT MEDICARE PART A & B [employer] [place] [id number] MEDICARE PART A & B [facility] MEDICARE SUPPLEMENT Care Teams Forensic Document Examiner Relationship Specialty Start Date End Date Pcp, Unknown PCP - General 01/25/20 Additional Source Comments The information contained in this document represents components of the legal health record. It is not the complete legal health record.[facility]
--- OUTSIDE RECORDS SUMMARY | 2025-05-01 12:52 | XMS_ITS | Encounter Summary ---
Author Organization [facility] Address [address] [place] [address] Care Team Providers Care Application Consultant Name Role Phone Federico Bowman MD Primary Care Provider [phone] Encounter Details Date Type Department Care Team (Late st Contact Info) Description 07/04/2024 Lab Requisition [facility] - Main Lab [address] [facility] [place] [address] Federico Bowman MD [address] [place] [address] Essential (primary) hypertension Social History [...] LAB CHEMISTRY METHOD 07/05/2024 8:56 AM EST [facility] Potassium 4.6 3.5 - 5.5 mmol/L LAB CHEMISTRY METHOD 07/05/2024 8:56 AM EST [facility] Chloride 108 96 - 110 mmol/L LAB CHEMISTRY METHOD 07/05/2024 8:56 AM [facility] CO2 28 21 - 32 mmol/L LAB CHEMISTRY METHOD 07/05/2024 8:56 AM [facility] Anion Gap 5 3 - 11 LAB CHEMISTRY METHOD 07/05/2024 8:56 AM [facility] Glucose 84 70 - 100 mg/dL LAB CHEMISTRY METHOD 07/05/2024 8:56 AM [facility] BUN 15 5 - 25 mg/dL LAB CHEMISTRY METHOD 07/05/2024 8:56 AM [facility] Creatinine 0.83 0.50 - 1.10 mg/dL LAB CHEMISTRY METHOD 07/05/2024 8:56 AM [facility] eGFR 70 >=60 mL/min/1. 73m2 LAB CHEMISTRY METHOD 07/05/2024 8:56 AM [facility] Comment:Calculation based on the Chronic Kidney Disease Epidemiology Collaboration (CKD-EPI) equation refit without adjustment for race. BUN/Creatinine Ratio 18.1 LAB CHEMISTRY METHOD 07/05/2024 8:56 AM [facility] Calcium 8.8 8.5 - 10.5 mg/dL LAB CHEMISTRY METHOD 07/05/2024 8:56 AM [facility] Blood Venous blood specimen / Unknown Venipuncture / Unknown 07/05/2024 4:57 AM EST 07/05/2024 8:14 AM EST us Federico Bowman MD LAB BLOOD ORDERABLES Final Resu lt [facility] [address] [place] [address], * (ABNORMAL) Complete blood count (07/05/2024 4:57 AM EST) WBC 6.9 4.8 - 10.8 K/mcL LAB HEMETOLOGY METHOD 07/05/2024 8:31 AM [facility] RBC 3.80 3.80 - 4.80 M/mcL LAB HEMETOLOGY METHOD 07/05/2024 8:31 AM [facility] Hemoglobin 11.3(L) 11.5 - 16.0 g/dL LAB HEMETOLOGY METHOD 07/05/2024 8:31 AM [facility] Hematocrit 36.6 35.0 - 47.0 % LAB HEMETOLOGY METHOD 07/05/2024 8:31 AM [facility] MCV 97.1 79.0 - 98.0 FL LAB HEMETOLOGY METHOD 07/05/2024 8:31 AM [facility] MCH 30.0 27.0 - 32.0 pcg LAB HEMETOLOGY METHOD 07/05/2024 8:31 AM [facility] MCHC 30.9(L) 32.0 - 37.0 g/dL LAB HEMETOLOGY METHOD 07/05/2024 8:31 AM [facility] RDW 13.4 11.0 - 15.0 % LAB HEMETOLOGY METHOD 07/05/2024 8:31 AM [facility] Platelets 366 130 - 400 K/mcL LAB HEMETOLOGY METHOD 07/05/2024 8:31 AM [facility] MPV 10.8 7.0 - 11.0 FL LAB HEMETOLOGY METHOD 07/05/2024 8:31 AM [facility] NRBC 0.0 <1.0 % LAB HEMETOLOGY METHOD 07/05/2024 8:31 AM [facility] NRBC Absolute 0.00 <0.10 K/mcL LAB HEMETOLOGY METHOD 07/05/2024 8:31 AM [facility] Blood Venous blood specimen / Unknown Venipuncture / Unknown 07/05/2024 4:57 AM EST 07/05/2024 8:14 AM EST Federico Bowman MD LAB BLOOD ORDERABLES Final Resu lt [facility] ([facility]) [facility] [address] [place] [address], documented in this encounter Visit Diagnoses Diagnosis Essential (primary) hypertension Unspecified essential hypertension documented in this encounter Care Teams Application Consultant Relationship Specialty Start Date End Date Federico Bowman MD [address] [place] [address] PCP - General Internal Medicine 07/04/24 documented as of this encounter
--- OUTSIDE RECORDS SUMMARY | 2025-05-01 12:52 | XMS_ITS | Encounter Summary ---
Author Organization [facility] Address [address] [place] [address] Phone Care Team Providers Care Calenderer Name Role Phone Pcp, Unknown Primary Care Provider Unavailabl e Encounter Details Date Type Department Care Team (Latest Contact Info) Description 04/14/2020 Transcribe Orders [facility] [address] [place] [address] Robert Darling, DO [address] [place] [address] Symptomatic menopausal or female climacteric states (Primary [...] EDT) PREGNENOLONE 149 33 - 248 NG/DL [facility] MED/PATH SUPERIOR Comment: (NOTE) ADDITIONAL INFORMATION This test was developed and its performance characteristics determined by [facility] in a manner consistent with CLIA requirements. This test has not been cleared or approved by the U.S. Food and Drug Administration. Blood 04/14/2020 3:07 PM EDT 04/14/2020 3:14 PM EDT [facility] LAB BLOOD ORDERABLES Final Resu lt Performing Organization Address [facility] de Phone Number [facility] LAB MED/PATH [address] [place] [address] * Sex hormone binding globulin (04/14/2020 3:07 PM EDT) SEX HORMONE BIND GLOB 60 nmol/L [facility] MED/PATH SUPERIOR Comment: (NOTE) REFERENCE VALUE 18-144 (non-) Blood 04/14/2020 3:07 PM EDT 04/14/2020 3:14 PM EDT [facility] LAB BLOOD ORDERABLES Final Resu lt Performing Organization Address [facility] de Phone Number [facility] LAB MED/PATH SU[address]IOR DR Vazquez [place] [address] * (ABNORMAL) DHEA-SULFATE (04/14/2020 3:07 PM EDT) DHEAS 241(H) 5.3 - 124 mcg/dL [facility] LAB MED/PATH SUPERIOR Blood 04/14/2020 3:07 PM EDT 04/14/2020 3:14 PM EDT [facility] LAB BLOOD ORDERABLES Final Resu lt Performing Organization Address [facility] de Phone Number [facility] LAB MED/PATH SU[address] [address] * (ABNORMAL) 25-OH vitamin D (04/14/2020 3:07 PM EDT) 25 OH VIT D (TOTAL) 74(H) 30 - 60 ng/mL [facility] Blood 04/14/2020 3:07 PM EDT 04/14/2020 3:15 PM EDT [facility] BLOOD ORDERABLES Final Resu lt Performing Organization Address [facility] Co de Phone Number [facility] [address] [place] [address] * Testosterone, total and free (04/14/2020 3:07 PM EDT) [facility] FREE TESTOSTERONE 0.43 0.06 - 0.76 ng/dL [facility] LAB MED/PATH SUPERIOR Comment: (NOTE) ADDITIONAL INFORMATION Testing performed by [facility]. This test was developed and its performance characteristics determined by [facility] in a manner consistent with CLIA requirements. This test has not been cleared or approved by the U.S. Food and Drug Administration. TESTOSTERONE, TOTAL 31 8 - 60 ng/dL [facility] LAB MED/PATH SUPERIOR Comment: (NOTE) ADDITIONAL INFORMATION Testing performed by Liquid Chromatography-Tandem Mass Spectrometry (LC-MS/MS). This test was developed and its performance characteristics determined by [facility] in a manner consistent with CLIA requirements. This test has not been cleared or approved by the U.S. Food and Drug Administration. Blood 04/14/2020 3:07 PM EDT 04/14/2020 3:14 PM EDT [facility] LAB BLOOD ORDERABLES Final Resu lt Performing Organization Address [facility] de Phone Number [facility] LAB MED/PATH SUPERIOR [address] [place] [phone] * Progesterone (04/14/2020 3:07 PM EDT) PROGESTERONE 1.56 ng/mL [facility] Comment: FEMALE: Follicular: 0.057 - 0.893 ng/ml Luteal: 1.83 - 23.9 ng/ml Blood 04/14/2020 3:07 PM EDT 04/14/2020 3:15 PM EDT [facility] LAB BLOOD ORDERABLES Final Resu lt Performing Organization Address [facility] Co de Phone Number [address] [address] * Estradiol (04/14/2020 3:07 PM EDT) ESTRADIOL 44 pg/mL [facility] Comment: FEMALE: Follicular: Less than 12 to 233 pg/ml Midcycle: 41 - 398 pg/ml Luteal: 22 - 341 pg/ml Postmenopausal: less than 5 - 138 pg/ml Blood 04/14/2020 3:07 PM EDT 04/14/2020 3:15 PM EDT [facility] LAB BLOOD ORDERABLES Final Resu lt Performing Organization Address [facility] Co de Phone Number [address] [address] documented in this encounter Visit Diagnoses Diagnosis Symptomatic menopausal or female climacteric states- Primary Essential hypertension, benign Asthmatic bronchitis without complication, unspecified asthma severity, unspecified whether persistent Glaucoma, unspecified glaucoma type, unspecified laterality Avitaminosis D Unspecified vitamin D deficiency documented in this encounter Care Teams Calenderer Relationship Specialty Start Date End Date Pcp, Unknown PCP - General 01/25/20 documented as of this encounter Additional Source Comments The information contained in this document represents components of the legal health record. It is not the complete legal health record.[facility]
--- OUTSIDE RECORDS SUMMARY | 2025-05-01 12:52 | XMS_ITS | Encounter Summary ---
Author Organization [facility] Address [address] [place] [address] Care Team Providers Care Global Program Manager Name Role Phone Federico Bowman MD Primary Care Provider [phone] Encounter Details Date Type Department Care Team (Late st Contact Info) Description 06/29/2024 Lab Requisition [facility] - Main Lab [address] [facility] [place] [address] Federico Bowman MD [address] [place] [address] Essential (primary) hypertension Social History [...] LAB CHEMISTRY METHOD 07/02/2024 9:07 AM EST [facility] LAB Potassium 4.7 3.5 - 5.5 mmol/L LAB CHEMISTRY METHOD 07/02/2024 9:07 AM EST [facility] LAB Chloride 109 96 - 110 mmol/L LAB CHEMISTRY METHOD 07/02/2024 9:07 AM [facility] LAB CO2 27 21 - 32 mmol/L LAB CHEMISTRY METHOD 07/02/2024 9:07 AM [facility] LAB Anion Gap 7 3 - 11 LAB CHEMISTRY METHOD 07/02/2024 9:07 AM [facility] LAB Glucose 81 70 - 100 mg/dL LAB CHEMISTRY METHOD 07/02/2024 9:07 AM [facility] LAB BUN 14 5 - 25 mg/dL LAB CHEMISTRY METHOD 07/02/2024 9:07 AM [facility] LAB Creatinine 0.82 0.50 - 1.10 mg/dL LAB CHEMISTRY METHOD 07/02/2024 9:07 AM [facility] LAB eGFR 71 >=60 mL/min/1. 73m2 LAB CHEMISTRY METHOD 07/02/2024 9:07 AM [facility] LAB Comment:Calculation based on the Chronic Kidney Disease Epidemiology Collaboration (CKD-EPI) equation refit without adjustment for race. BUN/Creatinine Ratio 17.1 LAB CHEMISTRY METHOD 07/02/2024 9:07 AM [facility] LAB Calcium 8.8 8.5 - 10.5 mg/dL LAB CHEMISTRY METHOD 07/02/2024 9:07 AM [facility] LAB AST (SGOT) 15 10 - 42 unit/L LAB CHEMISTRY METHOD 07/02/2024 9:07 AM [facility] LAB ALT (SGPT) 14 10 - 60 unit/L LAB CHEMISTRY METHOD 07/02/2024 9:07 AM [facility] LAB Alkaline Phosphatase 109 42 - 121 unit/L LAB CHEMISTRY METHOD 07/02/2024 9:07 AM [facility] LAB Total Protein 5.4(L) 6.0 - 8.0 g/dL LAB CHEMISTRY METHOD 07/02/2024 9:07 AM [facility] LAB Albumin 2.8(L) 3.2 - 5.0 g/dL LAB CHEMISTRY METHOD 07/02/2024 9:07 AM [facility] LAB Total Bilirubin 0.5 0.0 - 1.4 mg/dL LAB CHEMISTRY METHOD 07/02/2024 9:07 AM [facility] LAB Blood Venous blood specimen / Unknown Venipuncture / Unknown 07/02/2024 5:02 AM EST 07/02/2024 8:22 AM EST us Federico Bowman MD LAB BLOOD ORDERABLES Final Resu lt [facility] [address] [place] [address], * (ABNORMAL) Complete blood count (07/02/2024 5:02 AM EST) WBC 7.2 4.8 - 10.8 K/mcL LAB HEMETOLOGY METHOD 07/02/2024 8:43 AM [facility] LAB RBC 3.80 3.80 - 4.80 M/mcL LAB HEMETOLOGY METHOD 07/02/2024 8:43 AM [facility] LAB Hemoglobin 11.7 11.5 - 16.0 g/dL LAB HEMETOLOGY METHOD 07/02/2024 8:43 AM [facility] LAB Hematocrit 37.5 35.0 - 47.0 % LAB HEMETOLOGY METHOD 07/02/2024 8:43 AM [facility] LAB MCV 98.2(H) 79.0 - 98.0 FL LAB HEMETOLOGY METHOD 07/02/2024 8:43 AM [facility] LAB MCH 30.6 27.0 - 32.0 pcg LAB HEMETOLOGY METHOD 07/02/2024 8:43 AM [facility] LAB MCHC 31.2(L) 32.0 - 37.0 g/dL LAB HEMETOLOGY METHOD 07/02/2024 8:43 AM [facility] LAB RDW 13.5 11.0 - 15.0 % LAB HEMETOLOGY METHOD 07/02/2024 8:43 AM EST [facility] LAB Platelets 358 130 - 400 K/mcL LAB HEMETOLOGY METHOD 07/02/2024 8:43 AM EST [facility] LAB MPV 10.8 7.0 - 11.0 FL LAB HEMETOLOGY METHOD 07/02/2024 8:43 AM EST [facility] LAB NRBC 0.0 <1.0 % LAB HEMETOLOGY METHOD 07/02/2024 8:43 AM EST [facility] LAB NRBC Absolute 0.00 <0.10 K/mcL LAB HEMETOLOGY METHOD 07/02/2024 8:43 AM EST [facility] LAB Blood Venous blood specimen / Unknown Venipuncture / Unknown 07/02/2024 5:02 AM EST 07/02/2024 8:20 AM EST us Federico Bowman MD LAB BLOOD ORDERABLES Final Resu lt [facility] [address] [place] [address], documented in this encounter Visit Diagnoses Diagnosis Essential (primary) hypertension Unspecified essential hypertension documented in this encounter Care Teams Global Program Manager Relationship Specialty Start Date End Date Federico Bowman MD [address] [place] [address] PCP - General Internal Medicine 07/04/24 documented as of this encounter
--- OUTSIDE RECORDS SUMMARY | 2025-05-01 12:52 | XMS_ITS | Encounter Summary ---
Author Organization [facility] Address [address] [place] [address] Phone Care Team Providers Care Beam House Inspector Name Role Phone Conrado Hampton MD Primary Care Provider Pcp, Unknown Primary Care Provider Unavailabl e Encounter Details Date Type Department Care Team (Late st Contact Info) Description 02/21/2018 Procedure Pass [facility], [address] [address] Social History Tobacco Use Types Packs/Day Years [...] on filedocumented in this encounter Care Teams Beam House Inspector Relationship Specialty Start Date End Date Conrado Hampton MD [address] [place] [address] Drive [address] [place] [address] PCP - General Pulmonary Disease 12/12/17 01/24/20 Pcp, Unknown PCP - General 01/25/20 documented as of this encounter Additional Source Comments The information contained in this document represents components of the legal health record. It is not the complete legal health record.[facility]
--- OUTSIDE RECORDS SUMMARY | 2025-05-01 12:52 | XMS_ITS | Encounter Summary ---
Author Organization [facility] Address [address] [place] [address] Care Team Providers Care Film Projector Operator Name Role Phone Federico Bowman MD Primary Care Provider [phone] Encounter Details Date Type Department Care Team (Late st Contact Info) Description 06/27/2024 Lab Requisition [facility] - Main Lab [address] [facility] [employer] [place] [address] Federico Bowman MD [address] [place] [address] Essential (primary) hypertension Social History [...] LAB CHEMISTRY METHOD 06/27/2024 2:43 PM EST [facility] LAB Potassium 4.9 3.5 - 5.5 mmol/L LAB CHEMISTRY METHOD 06/27/2024 2:43 PM EST [facility] LAB Chloride 108 96 - 110 mmol/L LAB CHEMISTRY METHOD 06/27/2024 2:43 PM [facility] LAB CO2 26 21 - 32 mmol/L LAB CHEMISTRY METHOD 06/27/2024 2:43 PM [facility] LAB Anion Gap 7 3 - 11 LAB CHEMISTRY METHOD 06/27/2024 2:43 PM [facility] LAB Glucose 69(L) 70 - 100 mg/dL LAB CHEMISTRY METHOD 06/27/2024 2:43 PM [facility] LAB BUN 16 5 - 25 mg/dL LAB CHEMISTRY METHOD 06/27/2024 2:43 PM [facility] LAB Creatinine 0.86 0.50 - 1.10 mg/dL LAB CHEMISTRY METHOD 06/27/2024 2:43 PM [facility] LAB eGFR 67 >=60 mL/min/1. 73m2 LAB CHEMISTRY METHOD 06/27/2024 2:43 PM [facility] LAB Comment:Calculation based on the Chronic Kidney Disease Epidemiology Collaboration (CKD-EPI) equation refit without adjustment for race. BUN/Creatinine Ratio 18.6 LAB CHEMISTRY METHOD 06/27/2024 2:43 PM [facility] LAB Calcium 8.7 8.5 - 10.5 mg/dL LAB CHEMISTRY METHOD 06/27/2024 2:43 PM [facility] LAB AST (SGOT) 15 10 - 42 unit/L LAB CHEMISTRY METHOD 06/27/2024 2:43 PM [facility] LAB ALT (SGPT) 14 10 - 60 unit/L LAB CHEMISTRY METHOD 06/27/2024 2:43 PM [facility] LAB Alkaline Phosphatase 95 42 - 121 unit/L LAB CHEMISTRY METHOD 06/27/2024 2:43 PM [facility] LAB Total Protein 5.8(L) 6.0 - 8.0 g/dL LAB CHEMISTRY METHOD 06/27/2024 2:43 PM [facility] LAB Albumin 3.0(L) 3.2 - 5.0 g/dL LAB CHEMISTRY METHOD 06/27/2024 2:43 PM [facility] LAB Total Bilirubin 0.8 0.0 - 1.4 mg/dL LAB CHEMISTRY METHOD 06/27/2024 2:43 PM [facility] LAB Blood Venous blood specimen / Unknown Venipuncture / Unknown 06/27/2024 4:48 AM EST 06/27/2024 10:29 AM EST us Federico Bowman MD LAB BLOOD ORDERABLES Final Resu lt [facility] LAB [address] [place] [address], * (ABNORMAL) Complete blood count (06/27/2024 4:48 AM EST) WBC 7.4 4.8 - 10.8 K/mcL LAB HEMETOLOGY METHOD 06/27/2024 10:39 AM [facility] LAB RBC 4.10 3.80 - 4.80 M/[facility] LAB HEMETOLOGY METHOD 06/27/2024 10:39 AM [facility] LAB Hemoglobin 12.5 11.5 - 16.0 g/dL LAB HEMETOLOGY METHOD 06/27/2024 10:39 AM [facility] LAB Hematocrit 40.1 35.0 - 47.0 % LAB HEMETOLOGY METHOD 06/27/2024 10:39 AM [facility] LAB MCV 98.0 79.0 - 98.0 FL LAB HEMETOLOGY METHOD 06/27/2024 10:39 AM [facility] LAB MCH 30.6 27.0 - 32.0 pcg LAB HEMETOLOGY METHOD 06/27/2024 10:39 AM [facility] LAB MCHC 31.2(L) 32.0 - 37.0 g/dL LAB HEMETOLOGY METHOD 06/27/2024 10:39 AM [facility] LAB RDW 13.7 11.0 - 15.0 % LAB HEMETOLOGY METHOD 06/27/2024 10:39 AM EST [facility] LAB Platelets 371 130 - 400 K/mcL LAB HEMETOLOGY METHOD 06/27/2024 10:39 AM EST [facility] LAB MPV 11.3(H) 7.0 - 11.0 FL LAB HEMETOLOGY METHOD 06/27/2024 10:39 AM EST [facility] LAB NRBC 0.0 <1.0 % LAB HEMETOLOGY METHOD 06/27/2024 10:39 AM EST [facility] LAB NRBC Absolute 0.00 <0.10 K/mcL LAB HEMETOLOGY METHOD 06/27/2024 10:39 AM [facility] LAB Blood Venous blood specimen / Unknown Venipuncture / Unknown 06/27/2024 4:48 AM EST 06/27/2024 10:29 AM EST us Federico Bowman MD LAB BLOOD ORDERABLES Final Resu lt [facility] LAB [address] [place] [address], documented in this encounter Visit Diagnoses Diagnosis Essential (primary) hypertension Unspecified essential hypertension documented in this encounter Care Teams Film Projector Operator Relationship Specialty Start Date End Date Federico Bowman MD [address] [place] [address] PCP - General Internal Medicine 07/04/24 documented as of this encounter
--- OUTSIDE RECORDS SUMMARY | 2025-05-01 12:52 | XMS_ITS | Encounter Summary ---
Author Organization [facility] Address [address] [place] [address] Care Team Providers Care Window Cleaner Name Role Phone Federico Bowman MD Primary Care Provider [phone] Encounter Details Date Type Department Care Team (Late st Contact Info) Description 07/21/2024 Lab Requisition [facility] - Main Lab [address] [facility] [place] [address] Federico Bowman MD [address] [place] [address] Essential (primary) hypertension Social History [...] LAB CHEMISTRY METHOD 07/23/2024 10:19 AM EST [facility] LAB Potassium 4.4 3.5 - 5.5 mmol/L LAB CHEMISTRY METHOD 07/23/2024 10:19 AM EST [facility] LAB Chloride 110 96 - 110 mmol/L LAB CHEMISTRY METHOD 07/23/2024 10:19 AM [facility] LAB CO2 29 21 - 32 mmol/L LAB CHEMISTRY METHOD 07/23/2024 10:19 AM [facility] LAB Anion Gap 4 3 - 11 LAB CHEMISTRY METHOD 07/23/2024 10:19 AM [facility] LAB Glucose 76 70 - 100 mg/dL LAB CHEMISTRY METHOD 07/23/2024 10:19 AM [facility] LAB BUN 16 5 - 25 mg/dL LAB CHEMISTRY METHOD 07/23/2024 10:19 AM [facility] LAB Creatinine 0.88 0.50 - 1.10 mg/dL LAB CHEMISTRY METHOD 07/23/2024 10:19 AM [facility] LAB eGFR 65 >=60 mL/min/1. 73m2 LAB CHEMISTRY METHOD 07/23/2024 10:19 AM [facility] LAB Comment:Calculation based on the Chronic Kidney Disease Epidemiology Collaboration (CKD-EPI) equation refit without adjustment for race. BUN/Creatinine Ratio 18.2 LAB CHEMISTRY METHOD 07/23/2024 10:19 AM [facility] LAB Calcium 9.1 8.5 - 10.5 mg/dL LAB CHEMISTRY METHOD 07/23/2024 10:19 AM [facility] LAB AST (SGOT) 12 10 - 42 unit/L LAB CHEMISTRY METHOD 07/23/2024 10:19 AM [facility] LAB ALT (SGPT) 12 10 - 60 unit/L LAB CHEMISTRY METHOD 07/23/2024 10:19 AM [facility] LAB Alkaline Phosphatase 84 42 - 121 unit/L LAB CHEMISTRY METHOD 07/23/2024 10:19 AM [facility] LAB Total Protein 5.3(L) 6.0 - 8.0 g/dL LAB CHEMISTRY METHOD 07/23/2024 10:19 AM [facility] LAB Albumin 2.7(L) 3.2 - 5.0 g/dL LAB CHEMISTRY METHOD 07/23/2024 10:19 AM [facility] LAB Total Bilirubin 0.4 0.0 - 1.4 mg/dL LAB CHEMISTRY METHOD 07/23/2024 10:19 AM [facility] LAB Blood Venous blood specimen / Unknown Venipuncture / Unknown 07/23/2024 5:10 AM EST 07/23/2024 9:38 AM EST us Federico Bowman MD LAB BLOOD ORDERABLES Final Resu lt [facility] [address] [place] [address], * (ABNORMAL) Complete blood count (07/23/2024 5:10 AM EST) WBC 6.0 4.8 - 10.8 K/mcL LAB HEMETOLOGY METHOD 07/23/2024 9:52 AM [facility] LAB RBC 3.60(L) 3.80 - 4.80 M/[facility] LAB HEMETOLOGY METHOD 07/23/2024 9:52 AM [facility] LAB Hemoglobin 11.1(L) 11.5 - 16.0 g/dL LAB HEMETOLOGY METHOD 07/23/2024 9:52 AM [facility] LAB Hematocrit 36.0 35.0 - 47.0 % LAB HEMETOLOGY METHOD 07/23/2024 9:52 AM [facility] LAB MCV 99.7(H) 79.0 - 98.0 FL LAB HEMETOLOGY METHOD 07/23/2024 9:52 AM [facility] LAB MCH 30.7 27.0 - 32.0 pcg LAB HEMETOLOGY METHOD 07/23/2024 9:52 AM [facility] LAB MCHC 30.8(L) 32.0 - 37.0 g/dL LAB HEMETOLOGY METHOD 07/23/2024 9:52 AM EST [facility] LAB RDW 14.4 11.0 - 15.0 % LAB HEMETOLOGY METHOD 07/23/2024 9:52 AM EST [facility] LAB Platelets 321 130 - 400 K/mcL LAB HEMETOLOGY METHOD 07/23/2024 9:52 AM [facility] LAB MPV 10.5 7.0 - 11.0 FL LAB HEMETOLOGY METHOD 07/23/2024 9:52 AM EST [facility] LAB NRBC 0.0 <1.0 % LAB HEMETOLOGY METHOD 07/23/2024 9:52 AM [facility] LAB NRBC Absolute 0.00 <0.10 K/mcL LAB HEMETOLOGY METHOD 07/23/2024 9:52 AM [facility] LAB Blood Venous blood specimen / Unknown Venipuncture / Unknown 07/23/2024 5:10 AM EST 07/23/2024 9:33 AM EST us Federico Bowman MD LAB BLOOD ORDERABLES Final Resu lt [facility] [address] [place] [address], documented in this encounter Visit Diagnoses Diagnosis Essential (primary) hypertension Unspecified essential hypertension documented in this encounter Care Teams Window Cleaner Relationship Specialty Start Date End Date Federico Bowmna MD [address] [place] [phone] PCP - General Internal Medicine 07/04/24 documented as of this encounter
--- OUTSIDE RECORDS SUMMARY | 2025-05-01 12:52 | XMS_ITS | Encounter Summary ---
Author Organization [facility] Address [address] [place] [address] Care Team Providers Care [employer] Dean Name Role Phone Federico Bowman MD Primary Care Provider [phone] Encounter Details Date Type Department Care Team (Late st Contact Info) Description 07/18/2024 Lab Requisition [facility] - Main Lab [address] [facility] [email or web address] [address] Federico Bowman MD [address] [place] [address] Essential (primary) hypertension Social History [...] LAB CHEMISTRY METHOD 07/19/2024 1:[address] [facility] LAB Potassium 4.1 3.5 - 5.5 mmol/L LAB CHEMISTRY METHOD 07/19/2024 1:[address] [facility] LAB Chloride 108 96 - 110 [...] MD LAB BLOOD ORDERABLES Final Resu lt [facility] [address] [place] [address], * (ABNORMAL) Complete blood count (07/19/2024 5:03 [...] LAB BLOOD ORDERABLES Final Resu lt [facility] [address] [place] [address], documented in this encounter Visit Diagnoses Diagnosis Essential (primary) hypertension Unspecified essential hypertension documented in this encounter Care Teams [employer] Dean Relationship Specialty Start Date End Date Federico Bowman MD [address] [place] [address] PCP - General Internal Medicine 07/04/24 documented as of this encounter
--- OUTSIDE RECORDS SUMMARY | 2025-05-01 12:52 | XMS_ITS | Encounter Summary ---
Author Organization [facility] Address [address] [place] [address] Phone Care Team Providers Care Road Oiler Name Role Phone Conrado Hampton MD Primary Care Provider Pcp, Unknown Primary Care Provider Unavailabl e Reason for Referral * MRI/CAT Scan - Closed Specialty Diagnoses / Procedures Referred By Contac t Referred To Contact Radiology Diagnoses Low back pain radiating to both legs Left foot drop Procedures MRI Lumbar Spine Darwin Segura DO Phone: tel: fax: mailto:[email or web address] Referral ID Status Reason Start Date Expiration Date Visits Re quested Visits Authorized [id number] Closed 02/21/2018 02/21/2019 1 1 Encounter Details Date Type Department Care Team (Late st Contact Info) Description 02/21/2018 Ancillary Orders Virtual Department [address] [place] [address] Darwin Segura DO [address] [place] [address] Low back pain radiating to both legs; [...] on a 1.5 Cherelle high-field MRI scanner. SagittalT1, T2 and STIR, axial T1 and T2 sequences were obtained. FINDINGS: The conus is unremarkable. The levels described presume the presence of 5 lumbar vertebral bodies.There are no plain films present to confirm this. There is grade 1 anterior spondylolisthesis of L4 on L5 and L5 on [id number]. This appearance is suggestive of bilateral L4 [...] foot documented in this encounter Care Teams Road Oiler Relationship Specialty Start Date End Date Conrado Hampton MD [address] [place] [address] [address] [place] [address] PCP - General Pulmonary Disease 12/12/17 01/24/20 Pcp, Unknown PCP - General 01/25/20 documented as of this encounter Additional Source Comments The information contained in this document represents components of the legal health record. It is not the complete legal health record.[facility]
--- OUTSIDE RECORDS SUMMARY | 2025-05-01 12:52 | XMS_ITS | Encounter Summary ---
Author Organization [facility] Address [address] [place] [address] Care Team Providers Care Home Service Technician Name Role Phone Federico Bowman MD Primary Care Provider [phone] Encounter Details Date Type Department Care Team (Late st Contact Info) Description 07/08/2024 Lab Requisition [facility] - Main Lab [address] [facility] [place] [address] Federico Bowman MD [address] [place] [address] Essential (primary) hypertension Social History [...] LAB HEMETOLOGY METHOD 07/09/2024 9:54 AM EST [facility] LAB RBC 4.20 3.80 - 4.80 M/mcL LAB HEMETOLOGY METHOD 07/09/2024 9:54 AM EST [facility] LAB Hemoglobin 12.7 11.5 - 16.0 g/dL LAB HEMETOLOGY METHOD 07/09/2024 9:54 AM EST [facility] LAB Hematocrit 41.7 35.0 - 47.0 % LAB HEMETOLOGY METHOD 07/09/2024 9:54 AM [facility] LAB MCV 100.2(H) 79.0 - 98.0 FL LAB HEMETOLOGY METHOD 07/09/2024 9:54 AM [facility] LAB MCH 30.5 27.0 - 32.0 pcg LAB HEMETOLOGY METHOD 07/09/2024 9:54 AM EST [facility] LAB MCHC 30.5(L) 32.0 - 37.0 g/dL LAB HEMETOLOGY METHOD 07/09/2024 9:54 AM [facility] LAB RDW 13.9 11.0 - 15.0 % LAB HEMETOLOGY METHOD 07/09/2024 9:54 AM [facility] LAB Platelets 406(H) 130 - 400 K/mcL LAB HEMETOLOGY METHOD 07/09/2024 9:54 AM EST [facility] LAB MPV 10.5 7.0 - 11.0 FL LAB HEMETOLOGY METHOD 07/09/2024 9:54 AM [facility] LAB NRBC 0.0 <1.0 % LAB HEMETOLOGY METHOD 07/09/2024 9:54 AM [facility] LAB NRBC Absolute 0.00 <0.10 K/mcL LAB HEMETOLOGY METHOD 07/09/2024 9:54 AM [facility] LAB Blood Venous blood specimen / Unknown Venipuncture / Unknown 07/09/2024 4:55 AM EST 07/09/2024 9:16 AM EST us Federico Bowman MD LAB BLOOD ORDERABLES Final Resu lt [facility] LAB [address] [place] [address], documented in this encounter Visit Diagnoses Diagnosis Essential (primary) hypertension Unspecified essential hypertension documented in this encounter Care Teams Home Service Technician Relationship Specialty Start Date End Date Federico Bowman MD [address] [place] [address] PCP - General Internal Medicine 07/04/24 documented as of this encounter
--- OUTSIDE RECORDS SUMMARY | 2025-05-01 12:52 | XMS_ITS | Encounter Summary ---
Author Organization [facility] Address [address] [place] [address] Care Team Providers Care Manager Programs Name Role Phone Federico Bowman MD Primary Care Provider [phone] Encounter Details Date Type Department Care Team (Late st Contact Info) Description 07/09/2024 Lab Requisition [facility] - Main Lab 299 [facility] [place] [address] Federico Bowman MD [address] [place] [address] Essential (primary) hypertension Social History [...] LAB CHEMISTRY METHOD 07/10/2024 10:27 AM EST [facility] LAB Potassium 4.3 3.5 - 5.5 mmol/L LAB CHEMISTRY METHOD 07/10/2024 10:27 AM EST [facility] LAB Chloride 111(H) 96 - 110 mmol/L LAB CHEMISTRY METHOD 07/10/2024 10:27 AM EST [facility] LAB CO2 28 21 - 32 mmol/L LAB CHEMISTRY METHOD 07/10/2024 10:[address] [facility] LAB Anion Gap 5 3 - 11 LAB CHEMISTRY METHOD 07/10/2024 10:[address] [facility] LAB Glucose 75 70 - 100 mg/dL LAB CHEMISTRY METHOD 07/10/2024 10:[address] [facility] LAB BUN 13 5 - 25 mg/dL LAB CHEMISTRY METHOD 07/10/2024 10:[address] [facility] LAB Creatinine 0.76 0.50 - 1.10 mg/dL LAB CHEMISTRY METHOD 07/10/2024 10:[address] [facility] LAB eGFR 77 >=60 mL/min/1. 73m2 LAB CHEMISTRY METHOD 07/10/2024 10:[address] [facility] LAB Comment:Calculation based on the Chronic Kidney Disease Epidemiology Collaboration (CKD-EPI) equation refit without adjustment for race. BUN/Creatinine Ratio 17.1 LAB CHEMISTRY METHOD 07/10/2024 10:[address] [facility] LAB Calcium 8.6 8.5 - 10.5 mg/dL LAB CHEMISTRY METHOD 07/10/2024 10:[address] [facility] LAB AST (SGOT) 10 10 - 42 unit/L LAB CHEMISTRY METHOD 07/10/2024 10:[address] [facility] LAB ALT (SGPT) 12 10 - 60 unit/L LAB CHEMISTRY METHOD 07/10/2024 10:[address] [facility] LAB Alkaline Phosphatase 91 42 - 121 unit/L LAB CHEMISTRY METHOD 07/10/2024 10:[address] [facility] LAB Total Protein 5.1(L) 6.0 - 8.0 g/dL LAB CHEMISTRY METHOD 07/10/2024 10:[address] [facility] LAB Albumin 2.7(L) 3.2 - 5.0 g/dL LAB CHEMISTRY METHOD 07/10/2024 10:[address] [facility] LAB Total Bilirubin 0.4 0.0 - 1.4 mg/dL LAB CHEMISTRY METHOD 07/10/2024 10:27 AM EST [facility] LAB Blood Venous blood specimen / Unknown Venipuncture / Unknown 07/10/2024 4:56 AM EST 07/10/2024 9:43 AM EST us Federico Bowman MD LAB BLOOD ORDERABLES Final Resu lt [facility] LAB [address] [place] [address], documented in this encounter Visit Diagnoses Diagnosis Essential (primary) hypertension Unspecified essential hypertension documented in this encounter Care Teams Manager Programs Relationship Specialty Start Date End Date Federico Bowman MD [address] [place] [address] PCP - General Internal Medicine 07/04/24 documented as of this encounter
--- OUTSIDE RECORDS SUMMARY | 2025-05-01 12:52 | XMS_ITS | Encounter Summary ---
Author Organization [facility] Address [address] [place] [address] Care Team Providers Care Residential Property Consultant Name Role Phone Federico Bowman MD Primary Care Provider [phone] Encounter Details Date Type Department Care Team (Late st Contact Info) Description 07/13/[address] [facility] - Main Lab 299 [facility] [place] [address] Federico Bowman MD [address] [place] [address] Essential (primary) hypertension Social History [...] LAB CHEMISTRY METHOD 07/16/2024 11:41 AM EST [facility] LAB Potassium 4.2 3.5 - 5.5 mmol/L LAB CHEMISTRY METHOD 07/16/2024 11:41 AM EST [facility] LAB Chloride 111(H) 96 - 110 mmol/L LAB CHEMISTRY METHOD 07/16/2024 11:41 AM [facility] LAB CO2 25 21 - 32 mmol/L LAB CHEMISTRY METHOD 07/16/2024 11:41 AM [facility] LAB Anion Gap 9 3 - 11 LAB CHEMISTRY METHOD 07/16/2024 11:41 AM [facility] LAB Glucose 79 70 - 100 mg/dL LAB CHEMISTRY METHOD 07/16/2024 11:41 AM [facility] LAB BUN 15 5 - 25 mg/dL LAB CHEMISTRY METHOD 07/16/2024 11:41 AM [facility] LAB Creatinine 0.77 0.50 - 1.10 mg/dL LAB CHEMISTRY METHOD 07/16/2024 11:41 AM [facility] LAB eGFR 76 >=60 mL/min/1. 73m2 LAB CHEMISTRY METHOD 07/16/2024 11:41 AM [facility] LAB Comment:Calculation based on the Chronic Kidney Disease Epidemiology Collaboration (CKD-EPI) equation refit without adjustment for race. BUN/Creatinine Ratio 19.5 LAB CHEMISTRY METHOD 07/16/2024 11:41 AM [facility] LAB Calcium 8.6 8.5 - 10.5 mg/dL LAB CHEMISTRY METHOD 07/16/2024 11:41 AM [facility] LAB AST (SGOT) 12 10 - 42 unit/L LAB CHEMISTRY METHOD 07/16/2024 11:41 AM [facility] LAB ALT (SGPT) 20 10 - 60 unit/L LAB CHEMISTRY METHOD 07/16/2024 11:41 AM [facility] LAB Alkaline Phosphatase 92 42 - 121 unit/L LAB CHEMISTRY METHOD 07/16/2024 11:41 AM [facility] LAB Total Protein 5.1(L) 6.0 - 8.0 g/dL LAB CHEMISTRY METHOD 07/16/2024 11:41 AM [facility] LAB Albumin 2.6(L) 3.2 - 5.0 g/dL LAB CHEMISTRY METHOD 07/16/2024 11:41 AM [facility] LAB Total Bilirubin 0.3 0.0 - 1.4 mg/dL LAB CHEMISTRY METHOD 07/16/2024 11:41 AM [facility] LAB Blood Venous blood specimen / Unknown Venipuncture / Unknown 07/16/2024 5:08 AM EST 07/16/2024 10:15 AM EST us Federico Bowman MD LAB BLOOD ORDERABLES Final Resu lt [facility] LAB [address] [place] [address], * (ABNORMAL) Complete blood count (07/16/2024 5:08 AM EST) WBC 6.9 4.8 - 10.8 K/mcL LAB HEMETOLOGY METHOD 07/16/2024 10:32 AM [facility] LAB RBC 3.50(L) 3.80 - 4.80 M/mcL LAB HEMETOLOGY METHOD 07/16/2024 10:32 AM [facility] LAB Hemoglobin 10.6(L) 11.5 - 16.0 g/dL LAB HEMETOLOGY METHOD 07/16/2024 10:32 AM [facility] LAB Hematocrit 34.3(L) 35.0 - 47.0 % LAB HEMETOLOGY METHOD 07/16/2024 10:32 AM [facility] LAB MCV 99.1(H) 79.0 - 98.0 FL LAB HEMETOLOGY METHOD 07/16/2024 10:32 AM [facility] LAB MCH 30.6 27.0 - 32.0 pcg LAB HEMETOLOGY METHOD 07/16/2024 10:32 AM [facility] LAB MCHC 30.9(L) 32.0 - 37.0 g/dL LAB HEMETOLOGY METHOD 07/16/2024 10:32 AM EST [facility] LAB RDW 14.1 11.0 - 15.0 % LAB HEMETOLOGY METHOD 07/16/2024 10:32 AM EST [facility] LAB Platelets 315 130 - 400 K/mcL LAB HEMETOLOGY METHOD 07/16/2024 10:32 AM EST [facility] LAB MPV 10.7 7.0 - 11.0 FL LAB HEMETOLOGY METHOD 07/16/2024 10:32 AM EST [facility] LAB NRBC 0.0 <1.0 % LAB HEMETOLOGY METHOD 07/16/2024 10:32 AM [facility] LAB NRBC Absolute 0.00 <0.10 K/mcL LAB HEMETOLOGY METHOD 07/16/2024 10:32 AM [facility] LAB Blood Venous blood specimen / Unknown Venipuncture / Unknown 07/16/2024 5:08 AM EST 07/16/2024 10:12 AM EST us Federico Bowman MD LAB BLOOD ORDERABLES Final Resu lt [facility] LAB [address] [place] [address], documented in this encounter Visit Diagnoses Diagnosis Essential (primary) hypertension Unspecified essential hypertension documented in this encounter Care Teams Residential Property Consultant Relationship Specialty Start Date End Date Federico Bowman MD [address] [place] [address] PCP - General Internal Medicine 07/04/24 documented as of this encounter
--- OUTSIDE RECORDS SUMMARY | 2025-05-01 12:52 | XMS_ITS | Encounter Summary ---
Author Organization [facility] Address [address] [place] [address] Care Team Providers Care Research Leader Name Role Phone Federico Bowman MD Primary Care Provider [phone] Encounter Details Date Type Department Care Team (Late st Contact Info) Description 07/11/2024 Lab Requisition [facility] - Main Lab 299 [facility] [place] [address] Federico Bowman MD [address] [place] [address] Essential (primary) hypertension Social History [...] LAB CHEMISTRY METHOD 07/12/2024 9:45 AM EST [facility] LAB Potassium 4.3 3.5 - 5.5 mmol/L LAB CHEMISTRY METHOD 07/12/2024 9:45 AM EST [facility] LAB Chloride 108 96 [...] [facility] LAB [address] [place] [address], * (ABNORMAL) Complete blood count (07/12/2024 5:10 [...] LAB BLOOD ORDERABLES Final Resu lt [facility] LAB [address] [place] [address], documented in this encounter Visit Diagnoses Diagnosis Essential (primary) hypertension Unspecified essential hypertension documented in this encounter Care Teams Research Leader Relationship Specialty Start Date End Date Federico Bowman MD [address] [place] [address] PCP - General Internal Medicine 07/04/24 documented as of this encounter
== END 2025-05-01 12:08 | disposition home or self-care (01) ==
LOC: HO.HSMS 11:15
PROVIDERS: Visit Provider Psychiatry & Neurology Neurology
DX: R41.3 Other amnesia (principal); R26.9 Unspecified abnormalities of gait and mobility
CPT/HCPCS: 99204; G2211

== ENCOUNTER → 2025-05-01 11:14 | Outpatient (BNVA) | payer MEDICARE, OTHER, SELFPAY | PROVIDERS: Visit Provider Psychiatry & Neurology Neurology | DX: R41.3 Other amnesia (principal); R26.9 Unspecified abnormalities of gait and mobility | CPT/HCPCS: 99202 ==

== ENCOUNTER → 2025-05-28 17:48 | Outpatient (BNV) | payer MEDICARE, OTHER, SELFPAY | PROVIDERS: Visit Provider Student in an Organized Health Care Education/Training Program | DX: G91.2 (Idiopathic) normal pressure hydrocephalus (principal) | CPT/HCPCS: 70551 ==

== ENCOUNTER 2025-05-28 17:50 | Outpatient (REF) | payer MEDICARE, OTHER, SELFPAY ==
--- OUTSIDE RECORDS SUMMARY | 2024-01-25 09:30 | XMS_ITS ---
Author Organization [facility] Address [address] [place] [address] Care Team Providers Care Power Generating Plant Operator Name Role Phone [place] ERWIN, Boubacar Primary Care Provider Concepción Law [phone] Encounters Encounter Location Date Provider Diagnosis [facility] [address] [place] [address] 01/25/2024 Concepción Solis Plan Of Treatment No Information Progress Notes * Yumiko MARIE MDOB:09/1939 (85 yo F)Acc No.[id number]:01/25/2024 Progress Note Patient: Yumiko JANE Provider: Charlie Solis DPM :1940 A ge:83 Y S ex:Female Date:01/25/2024 Address:[address] [facility] Pcp:Boubacar Delarosa MD Subjective: * Chief Complaints: [...] 0 01/25/2024 Generated for Drewi amita/[place]/eTransmitting on: 1 08:23 PM EDT
--- NOTE | ~2025-05-28 | MR_ITS ---
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 Incomplete FLAIR suppression of the 3rd ventricle with fluid fluid level is seen ( image 12 series 8 and series 12 ). Multifocal susceptibility are noted within the bilateral occipital horns which is T1 hyperintense may represent resolving hematomas. No restricted diffusion. No intra-axial mass or hemorrhage. No midline shift. No hydrocephalus. Vascular flow voids are intact. Orbital contents are unremarkable. The sinuses and mastoid air cells are clear. No focal bone lesion. IMPRESSION: Moderate dilation of the lateral and 3rd ventricles with incomplete FLAIR suppression and fluid fluid level within the 3rd ventricle as well as multifocal areas of susceptibility with intrinsic T1 signal within the occipital horns, concerning for resolving intraventricular hematoma causing obstructive hydrocephalus. The findings is grossly unchanged in the interval when compared to the prior noncontrast head CT dated 11/18/2024. No acute intracranial disease. This document has been electronically signed by: Megan Yan MD on 05/28/2025 19:55:20
--- OUTSIDE RECORDS SUMMARY | 2025-05-28 20:23 | XMS_ITS | Encounter Summary ---
Author Organization [facility] Address [address] [place] [address] Care Team Providers Care County Director Welfare Name Role Phone Federico Bowman MD Primary Care Provider [phone] Encounter Details Date Type Department Care Team (Late st Contact Info) Description 07/08/2024 Lab Requisition [facility] - Main Lab 299 [facility] [place] [address] Federico Bowman MD [address] [place], [...] LAB HEMETOLOGY METHOD 07/09/2024 9:54 AM EST [facility] LAB RBC 4.20 3.80 - 4.80 M/mcL LAB HEMETOLOGY METHOD 07/09/2024 9:54 AM EST [facility] LAB Hemoglobin 12.7 11.5 - 16.0 g/dL LAB HEMETOLOGY METHOD 07/09/2024 9:54 AM EST [facility] LAB Hematocrit 41.7 35.0 - 47.0 % LAB HEMETOLOGY METHOD 07/09/2024 9:54 AM [facility] LAB MCV 100.2(H) 79.0 - 98.0 FL LAB HEMETOLOGY METHOD 07/09/2024 9:54 AM [facility] LAB MCH 30.5 27.0 - 32.0 pcg LAB HEMETOLOGY METHOD 07/09/2024 9:54 AM EST [facility] LAB MCHC 30.5(L) 32.0 - 37.0 g/dL LAB HEMETOLOGY METHOD 07/09/2024 9:54 AM [facility] LAB RDW 13.9 11.0 - 15.0 % LAB HEMETOLOGY METHOD 07/09/2024 9:54 AM [facility] LAB Platelets 406(H) 130 - 400 K/mcL LAB HEMETOLOGY METHOD 07/09/2024 9:54 AM EST [facility] LAB MPV 10.5 7.0 - 11.0 FL LAB HEMETOLOGY METHOD 07/09/2024 9:54 AM [facility] LAB NRBC 0.0 <1.0 % LAB HEMETOLOGY METHOD 07/09/2024 9:54 AM [facility] LAB NRBC Absolute 0.00 <0.10 K/mcL LAB HEMETOLOGY METHOD 07/09/2024 9:54 AM [facility] LAB Blood Venous blood specimen / Unknown Venipuncture / Unknown 07/09/2024 4:55 AM EST 07/09/2024 9:16 AM EST us Federico Bowman MD LAB BLOOD ORDERABLES Final Resu lt [facility] LAB [address] [place] [address], documented in this encounter Visit Diagnoses Diagnosis Essential (primary) hypertension Unspecified essential hypertension documented in this encounter Care Teams County Director Welfare Relationship Specialty Start Date End Date Federico Bowman MD [address] [place] [address] PCP - General Internal Medicine 07/04/24 documented as of this encounter
--- OUTSIDE RECORDS SUMMARY | 2025-05-28 20:23 | XMS_ITS | Encounter Summary ---
Author Organization [facility] Address [address] [place] [address] Care Team Providers Care Kiln Head House Operator Name Role Phone Federico Bowman MD Primary Care Provider [phone] Encounter Details Date Type Department Care Team (Late st Contact Info) Description 06/27/2024 Lab Requisition [facility] - Main Lab 299 [facility] [place] [address] Federico Bowman MD [address] [place] [address] Essential (primary) hypertension Social History [...] LAB CHEMISTRY METHOD 06/27/2024 2:[address] [facility] LAB Potassium 4.9 3.5 - 5.5 mmol/L LAB CHEMISTRY METHOD 06/27/2024 2:[address] [facility] LAB Chloride 108 96 - 110 mmol/L LAB CHEMISTRY METHOD 06/27/2024 2:43 PM [facility] LAB CO2 26 21 - 32 mmol/L LAB CHEMISTRY METHOD 06/27/2024 2:43 PM [facility] LAB Anion Gap 7 3 - 11 LAB CHEMISTRY METHOD 06/27/2024 2:43 PM [facility] LAB Glucose 69(L) 70 - 100 mg/dL LAB CHEMISTRY METHOD 06/27/2024 2:43 PM [facility] LAB BUN 16 5 - 25 mg/dL LAB CHEMISTRY METHOD 06/27/2024 2:43 PM [facility] LAB Creatinine 0.86 0.50 - 1.10 mg/dL LAB CHEMISTRY METHOD 06/27/2024 2:43 PM [facility] LAB eGFR 67 >=60 mL/min/1. 73m2 LAB CHEMISTRY METHOD 06/27/2024 2:43 PM [facility] LAB Comment:Calculation based on the Chronic Kidney Disease Epidemiology Collaboration (CKD-EPI) equation refit without adjustment for race. BUN/Creatinine Ratio 18.6 LAB CHEMISTRY METHOD 06/27/2024 2:43 PM [facility] LAB Calcium 8.7 8.5 - 10.5 mg/dL LAB CHEMISTRY METHOD 06/27/2024 2:43 PM [facility] LAB AST (SGOT) 15 10 - 42 unit/L LAB CHEMISTRY METHOD 06/27/2024 2:43 PM [facility] LAB ALT (SGPT) 14 10 - 60 unit/L LAB CHEMISTRY METHOD 06/27/2024 2:43 PM [facility] LAB Alkaline Phosphatase 95 42 - 121 unit/L LAB CHEMISTRY METHOD 06/27/2024 2:43 PM [facility] LAB Total Protein 5.8(L) 6.0 - 8.0 g/dL LAB CHEMISTRY METHOD 06/27/2024 2:43 PM [facility] LAB Albumin 3.0(L) 3.2 - 5.0 g/dL LAB CHEMISTRY METHOD 06/27/2024 2:43 PM [facility] LAB Total Bilirubin 0.8 0.0 - 1.4 mg/dL LAB CHEMISTRY METHOD 06/27/2024 2:43 PM [facility] LAB Blood Venous blood specimen / Unknown Venipuncture / Unknown 06/27/2024 4:48 AM EST 06/27/2024 10:29 AM EST us Federico Bowman MD LAB BLOOD ORDERABLES Final Resu lt [facility] LAB [address] [place] [address], * (ABNORMAL) Complete blood count (06/27/2024 4:48 AM EST) WBC 7.4 4.8 - 10.8 K/mcL LAB HEMETOLOGY METHOD 06/27/2024 10:39 AM [facility] LAB RBC 4.10 3.80 - 4.80 M/[facility] LAB HEMETOLOGY METHOD 06/27/2024 10:39 AM [facility] LAB Hemoglobin 12.5 11.5 - 16.0 g/dL LAB HEMETOLOGY METHOD 06/27/2024 10:39 AM [facility] LAB Hematocrit 40.1 35.0 - 47.0 % LAB HEMETOLOGY METHOD 06/27/2024 10:39 AM [facility] LAB MCV 98.0 79.0 - 98.0 FL LAB HEMETOLOGY METHOD 06/27/2024 10:39 AM [facility] LAB MCH 30.6 27.0 - 32.0 pcg LAB HEMETOLOGY METHOD 06/27/2024 10:39 AM [facility] LAB MCHC 31.2(L) 32.0 - 37.0 g/dL LAB HEMETOLOGY METHOD 06/27/2024 10:39 AM [facility] LAB RDW 13.7 11.0 - 15.0 % LAB HEMETOLOGY METHOD 06/27/2024 10:[address] [facility] LAB Platelets 371 130 - 400 K/mcL LAB HEMETOLOGY METHOD 06/27/2024 10:[address] [facility] LAB MPV 11.3(H) 7.0 - 11.0 FL LAB HEMETOLOGY METHOD 06/27/2024 10:[address] [facility] LAB NRBC 0.0 <1.0 % LAB HEMETOLOGY METHOD 06/27/2024 10:[address] [facility] LAB NRBC Absolute 0.00 <0.10 K/mcL LAB HEMETOLOGY METHOD 06/27/2024 10:39 AM [facility] LAB Blood Venous blood specimen / Unknown Venipuncture / Unknown 06/27/2024 4:48 AM EST 06/27/2024 10:29 AM EST us Federico Bowman MD LAB BLOOD ORDERABLES Final Resu lt [facility] LAB [address] [place] [address], documented in this encounter Visit Diagnoses Diagnosis Essential (primary) hypertension Unspecified essential hypertension documented in this encounter Care Teams Kiln Head House Operator Relationship Specialty Start Date End Date Federico Bowman MD [address] [place] [address] PCP - General Internal Medicine 07/04/24 documented as of this encounter
--- OUTSIDE RECORDS SUMMARY | 2025-05-28 20:23 | XMS_ITS | Encounter Summary ---
Author Organization [facility] Address [address] [place] [address] Phone Care Team Providers Care Director Of Category Management Name Role Phone Conrado Hampton MD Primary Care Provider Pcp, Unknown Primary Care Provider Unavailabl e Reason for Referral * MRI/CAT Scan - Closed Specialty Diagnoses / Procedures Referred By Contac t Referred To Contact Radiology Diagnoses Low back pain radiating to both legs Left foot drop Procedures MRI Lumbar Spine Darwin Segura DO Phone: tel: fax: mailto:[email or web address] Referral ID Status Reason Start Date Expiration Date Visits Re quested Visits Authorized [id number] Closed 02/21/2018 02/21/2019 1 1 Encounter Details Date Type Department Care Team (Late st Contact Info) Description 02/21/2018 Ancillary Orders Virtual Department [address] [place] [address] Darwin Segura DO [address] [place] [address] [email or web address] Low back pain radiating to both legs; [...] of L4 on L5 and L5 on [id number]. This appearance is suggestive of bilateral L4 [...] foot documented in this encounter Care Teams Director Of Category Management Relationship Specialty Start Date End Date Conrado Hampton MD [address] [place] [address] [address] [place] [address] PCP - General Pulmonary Disease 12/12/17 01/24/20 Pcp, Unknown PCP - General 01/25/20 documented as of this encounter Additional Source Comments The information contained in this document represents components of the legal health record. It is not the complete legal health record.[facility]
--- OUTSIDE RECORDS SUMMARY | 2025-05-28 20:23 | XMS_ITS | Encounter Summary ---
Author Organization [facility] Address [address] [place] [address] Phone Care Team Providers Care Institutional Research Director Name Role Phone Conrado Hampton MD Primary Care Provider Pcp, Unknown Primary Care Provider Unavailabl e Encounter Details Date Type Department Care Team (Latest Contact Info) Description 12/12/2017 Transcribe Orders [facility] [address] [place] [address] Anish Garrido MD [address] [place] [phone] Symptomatic menopausal or female climacteric states (Primary [...] (12/12/2017 10:50 AM EDT) PROGESTERONE 1.50 ng/mL [facility] Comment: FEMALE: Follicular: 0.057 - 0.893 ng/ml Luteal: 1.83 - 23.9 ng/ml Blood 12/12/2017 10:5 0 AM EDT 12/12/2017 10:54 AM EDT Anish Garrido MD LAB BLOOD ORDERABLES Fi nal Result [facility] [address] [place] [address] * (ABNORMAL) Testosterone, total and free (12/12/2017 10:50 AM EDT) FREE TESTOSTERONE 1.03(H) 0.06 - 0.79 ng/dL [facility] Comment: (NOTE) ADDITIONAL INFORMATION Testing performed by [facility]. This test was developed and its performance characteristics determined by [facility] in a manner consistent with CLIA requirements. This test has not been cleared or approved by the U.S. Food and Drug Administration. TESTOSTERONE, TOTAL 103(H) 8 - 60 ng/dL [facility] [place] Comment: (NOTE) ADDITIONAL INFORMATION Testing performed by Liquid Chromatography-Tandem Mass Spectrometry (LC-MS/MS). This test was developed and its performance characteristics determined by [facility] in a manner consistent with CLIA requirements. This test has not been cleared or approved by the U.S. Food and Drug Administration. Blood 12/12/2017 10:5 0 AM EDT 12/12/2017 10:54 AM EDT us Anish Garrido MD LAB BLOOD ORDERABLES Fi nal Result [facility] [address] [place] [address] * Estradiol (12/12/2017 10:50 AM EDT) ESTRADIOL 65 pg/mL [facility] Comment: FEMALE: Follicular: Less than 12 to 233 pg/ml Midcycle: 41 - 398 pg/ml Luteal: 22 - 341 pg/ml Postmenopausal: less than 5 - 138 pg/ml Blood 12/12/2017 10:5 0 AM EDT 12/12/2017 10:54 AM EDT us Anish Garrido MD LAB BLOOD ORDERABLES Fi nal Result [facility] [address] [place] [address] * (ABNORMAL) DHEA-Sulfate (12/12/2017 10:50 AM EDT) DHEAS 335(H) <15 - 157 mcg/dL [facility] Blood 12/12/2017 10:5 0 AM EDT 12/12/2017 10:54 AM EDT Anish Garrido MD LAB BLOOD ORDERABLES Fi nal Result Performing Organization Address City/[facility]/ZIP Co de Phone Number [facility] [address] [place] [address] documented in this encounter Visit Diagnoses Diagnosis Symptomatic menopausal or female climacteric states- Primary 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 It is not the complete legal health record.[facility]
--- OUTSIDE RECORDS SUMMARY | 2025-05-28 20:23 | XMS_ITS | Encounter Summary ---
Author Organization [facility] Address [address] [place] [address] Care Team Providers Care Ad Compositor Name Role Phone Federico Bowman MD Primary Care Provider [phone] Encounter Details Date Type Department Care Team (Late st Contact Info) Description 07/24/2024 Lab Requisition [facility] - Main Lab [address] [facility] [place] [address] Federico Bowman MD [address] [place] [address] Essential (primary) hypertension Social History [...] LAB CHEMISTRY METHOD 07/26/2024 11:58 AM EST [facility] Potassium 4.3 3.5 - 5.5 mmol/L LAB CHEMISTRY METHOD 07/26/2024 11:58 AM EST [facility] Chloride 109 96 - 110 mmol/L LAB CHEMISTRY METHOD 07/26/2024 11:58 AM [facility] CO2 26 21 - 32 mmol/L LAB CHEMISTRY METHOD 07/26/2024 11:58 AM [facility] Anion Gap 6 3 - 11 LAB CHEMISTRY METHOD 07/26/2024 11:58 AM [facility] Glucose 71 70 - 100 mg/dL LAB CHEMISTRY METHOD 07/26/2024 11:58 AM [facility] BUN 15 5 - 25 mg/dL LAB CHEMISTRY METHOD 07/26/2024 11:58 AM [facility] Creatinine 0.78 0.50 - 1.10 mg/dL LAB CHEMISTRY METHOD 07/26/2024 11:58 AM [facility] eGFR 75 >=60 mL/min/1. 73m2 LAB CHEMISTRY METHOD 07/26/2024 11:58 AM [facility] Comment:Calculation based on the Chronic Kidney Disease Epidemiology Collaboration (CKD-EPI) equation refit without adjustment for race. BUN/Creatinine Ratio 19.2 LAB CHEMISTRY METHOD 07/26/2024 11:58 AM [facility] Calcium 8.2(L) 8.5 - 10.5 mg/dL LAB CHEMISTRY METHOD 07/26/2024 11:58 AM [facility] Blood Venous blood specimen / Unknown Venipuncture / Unknown 07/26/2024 5:09 AM EST 07/26/2024 11:23 AM EST us Federico Bowman MD LAB BLOOD ORDERABLES Final Resu lt [facility] [address] [place] [address], * (ABNORMAL) Complete blood count (07/26/2024 5:09 AM EST) WBC 3.6(L) 4.8 - 10.8 K/mcL LAB HEMETOLOGY METHOD 07/26/2024 11:34 AM [facility] RBC 3.50(L) 3.80 - 4.80 M/mcL LAB HEMETOLOGY METHOD 07/26/2024 11:34 AM [facility] Hemoglobin 10.8(L) 11.5 - 16.0 g/dL LAB HEMETOLOGY METHOD 07/26/2024 11:34 AM [facility] Hematocrit 34.6(L) 35.0 - 47.0 % LAB HEMETOLOGY METHOD 07/26/2024 11:34 AM [facility] MCV 98.6(H) 79.0 - 98.0 FL LAB HEMETOLOGY METHOD 07/26/2024 11:34 AM [facility] MCH 30.8 27.0 - 32.0 pcg LAB HEMETOLOGY METHOD 07/26/2024 11:34 AM [facility] MCHC 31.2(L) 32.0 - 37.0 g/dL LAB HEMETOLOGY METHOD 07/26/2024 11:34 AM [facility] RDW 14.8 11.0 - 15.0 % LAB HEMETOLOGY METHOD 07/26/2024 11:34 AM [facility] Platelets 268 130 - 400 K/mcL LAB HEMETOLOGY METHOD 07/26/2024 11:34 AM [facility] MPV 10.8 7.0 - 11.0 FL LAB HEMETOLOGY METHOD 07/26/2024 11:34 AM [facility] NRBC 0.0 <1.0 % LAB HEMETOLOGY METHOD 07/26/2024 11:34 AM [facility] NRBC Absolute 0.00 <0.10 K/mcL LAB HEMETOLOGY METHOD 07/26/2024 11:34 AM [facility] Blood Venous blood specimen / Unknown Venipuncture / Unknown 07/26/2024 5:09 AM EST 07/26/2024 11:14 AM EST Federico Bowman MD LAB BLOOD ORDERABLES Final Resu lt [facility] [address] [place] [address], documented in this encounter Visit Diagnoses Diagnosis Essential (primary) hypertension Unspecified essential hypertension documented in this encounter Care Teams Ad Compositor Relationship Specialty Start Date End Date Federico Bowman MD [address] [place] [address] PCP - General Internal Medicine 07/04/24 documented as of this encounter
--- OUTSIDE RECORDS SUMMARY | 2025-05-28 20:23 | XMS_ITS | Encounter Summary ---
Author Organization [facility] Address [address] [place] [address] Care Team Providers Care Chamber Magistrate Name Role Phone Federico Bowman MD Primary Care Provider [phone] Encounter Details Date Type Department Care Team (Late st Contact Info) Description 06/29/2024 Lab Requisition [facility] - Main Lab [address] [facility] [place] [address] Federico Bowman MD [address] [place] [address] Essential (primary) hypertension Social History [...] LAB CHEMISTRY METHOD 07/02/2024 9:07 AM EST [facility] Potassium 4.7 3.5 - 5.5 mmol/L LAB CHEMISTRY METHOD 07/02/2024 9:07 AM EST [facility] Chloride 109 96 - 110 mmol/L LAB CHEMISTRY METHOD 07/02/2024 9:[address] [facility] CO2 27 21 - 32 mmol/L LAB CHEMISTRY METHOD 07/02/2024 9:[address] [facility] Anion Gap 7 3 - 11 LAB CHEMISTRY METHOD 07/02/2024 9:[address] [facility] Glucose 81 70 - 100 mg/dL LAB CHEMISTRY METHOD 07/02/2024 9:[address] [facility] BUN 14 5 - 25 mg/dL LAB CHEMISTRY METHOD 07/02/2024 9:[address] [facility] Creatinine 0.82 0.50 - 1.10 mg/dL LAB CHEMISTRY METHOD 07/02/2024 9:[address] [facility] eGFR 71 >=60 mL/min/1. 73m2 LAB CHEMISTRY METHOD 07/02/2024 9:[address] [facility] Comment:Calculation based on the Chronic Kidney Disease Epidemiology Collaboration (CKD-EPI) equation refit without adjustment for race. BUN/Creatinine Ratio 17.1 LAB CHEMISTRY METHOD 07/02/2024 9:[address] [facility] Calcium 8.8 8.5 - 10.5 mg/dL LAB CHEMISTRY METHOD 07/02/2024 9:[address] [facility] AST (SGOT) 15 10 - 42 unit/L LAB CHEMISTRY METHOD 07/02/2024 9:[address] [facility] ALT (SGPT) 14 10 - 60 unit/L LAB CHEMISTRY METHOD 07/02/2024 9:[address] [facility] Alkaline Phosphatase 109 42 - 121 unit/L LAB CHEMISTRY METHOD 07/02/2024 9:[address] [facility] Total Protein 5.4(L) 6.0 - 8.0 g/dL LAB CHEMISTRY METHOD 07/02/2024 9:[address] [facility] Albumin 2.8(L) 3.2 - 5.0 g/dL LAB CHEMISTRY METHOD 07/02/2024 9:[address] [facility] Total Bilirubin 0.5 0.0 - 1.4 mg/dL LAB CHEMISTRY METHOD 07/02/2024 9:[address] [facility] Blood Venous blood specimen / Unknown Venipuncture / Unknown 07/02/2024 5:02 AM EST 07/02/2024 8:22 AM EST us Federico Bowman MD LAB BLOOD ORDERABLES Final Resu lt [facility] [address] [place] [address], * (ABNORMAL) Complete blood count (07/02/2024 5:02 AM EST) WBC 7.2 4.8 - 10.8 K/mcL LAB HEMETOLOGY METHOD 07/02/2024 8:[address] [facility] RBC 3.80 3.80 - 4.80 M/mcL LAB HEMETOLOGY METHOD 07/02/2024 8:[address] [facility] Hemoglobin 11.7 11.5 - 16.0 g/dL LAB HEMETOLOGY METHOD 07/02/2024 8:[address] [facility] Hematocrit 37.5 35.0 - 47.0 % LAB HEMETOLOGY METHOD 07/02/2024 8:[address] [facility] MCV 98.2(H) 79.0 - 98.0 FL LAB HEMETOLOGY METHOD 07/02/2024 8:[address] [facility] MCH 30.6 27.0 - 32.0 pcg LAB HEMETOLOGY METHOD 07/02/2024 8:[address] [facility] MCHC 31.2(L) 32.0 - 37.0 g/dL LAB HEMETOLOGY METHOD 07/02/2024 8:[address] [facility] RDW 13.5 11.0 - 15.0 % LAB HEMETOLOGY METHOD 07/02/2024 8:43 AM EST [facility] Platelets 358 130 - 400 K/mcL LAB HEMETOLOGY METHOD 07/02/2024 8:43 AM EST [facility] MPV 10.8 7.0 - 11.0 FL LAB HEMETOLOGY METHOD 07/02/2024 8:43 AM EST [facility] NRBC 0.0 <1.0 % LAB HEMETOLOGY METHOD 07/02/2024 8:43 AM EST [facility] NRBC Absolute 0.00 <0.10 K/mcL LAB HEMETOLOGY METHOD 07/02/2024 8:43 AM EST [facility] Blood Venous blood specimen / Unknown Venipuncture / Unknown 07/02/2024 5:02 AM EST 07/02/2024 8:20 AM EST us Federico Bowman MD LAB BLOOD ORDERABLES Final Resu lt [facility] [address] [place] [address], documented in this encounter Visit Diagnoses Diagnosis Essential (primary) hypertension Unspecified essential hypertension documented in this encounter Care Teams Chamber Magistrate Relationship Specialty Start Date End Date Federico Bowman MD [address] [place] [address] PCP - General Internal Medicine 07/04/24 documented as of this encounter
--- OUTSIDE RECORDS SUMMARY | 2025-05-28 20:23 | XMS_ITS | Encounter Summary ---
Author Organization [facility] Address [address] [place] [address] Care Team Providers Care Scoop Driver Name Role Phone Federico Bowman MD Primary Care Provider Encounter Details Date Type Department Care Team (Late st Contact Info) Description 07/21/2024 Lab Requisition [facility] - Main Lab [address] [facility] [place] [address] Federico Bowman MD [address] [place] [address] Essential (primary) hypertension Social History [...] LAB CHEMISTRY METHOD 07/23/2024 10:19 AM EST [facility] Potassium 4.4 3.5 - 5.5 mmol/L LAB CHEMISTRY METHOD 07/23/2024 10:19 AM EST [facility] Chloride 110 96 - 110 mmol/L LAB CHEMISTRY METHOD 07/23/2024 10:19 AM [facility] CO2 29 21 - 32 mmol/L LAB CHEMISTRY METHOD 07/23/2024 10:19 AM [facility] Anion Gap 4 3 - 11 LAB CHEMISTRY METHOD 07/23/2024 10:19 AM [facility] Glucose 76 70 - 100 mg/dL LAB CHEMISTRY METHOD 07/23/2024 10:19 AM [facility] BUN 16 5 - 25 mg/dL LAB CHEMISTRY METHOD 07/23/2024 10:19 AM [facility] Creatinine 0.88 0.50 - 1.10 mg/dL LAB CHEMISTRY METHOD 07/23/2024 10:19 AM [facility] eGFR 65 >=60 mL/min/1. 73m2 LAB CHEMISTRY METHOD 07/23/2024 10:19 AM [facility] Comment:Calculation based on the Chronic Kidney Disease Epidemiology Collaboration (CKD-EPI) equation refit without adjustment for race. BUN/Creatinine Ratio 18.2 LAB CHEMISTRY METHOD 07/23/2024 10:19 AM [facility] Calcium 9.1 8.5 - 10.5 mg/dL LAB CHEMISTRY METHOD 07/23/2024 10:19 AM [facility] AST (SGOT) 12 10 - 42 unit/L LAB CHEMISTRY METHOD 07/23/2024 10:19 AM [facility] ALT (SGPT) 12 10 - 60 unit/L LAB CHEMISTRY METHOD 07/23/2024 10:19 AM [facility] Alkaline Phosphatase 84 42 - 121 unit/L LAB CHEMISTRY METHOD 07/23/2024 10:19 AM [facility] Total Protein 5.3(L) 6.0 - 8.0 g/dL LAB CHEMISTRY METHOD 07/23/2024 10:19 AM [facility] Albumin 2.7(L) 3.2 - 5.0 g/dL LAB CHEMISTRY METHOD 07/23/2024 10:19 AM [facility] Total Bilirubin 0.4 0.0 - 1.4 mg/dL LAB CHEMISTRY METHOD 07/23/2024 10:19 AM [facility] Blood Venous blood specimen / Unknown Venipuncture / Unknown 07/23/2024 5:10 AM EST 07/23/2024 9:38 AM EST us Federico Bowman MD LAB BLOOD ORDERABLES Final Resu lt [facility] [address] [place] [address], * (ABNORMAL) Complete blood count (07/23/2024 5:10 AM EST) WBC 6.0 4.8 - 10.8 K/mcL LAB HEMETOLOGY METHOD 07/23/2024 9:52 AM [facility] RBC 3.60(L) 3.80 - 4.80 M/[facility] LAB HEMETOLOGY METHOD 07/23/2024 9:52 AM [facility] Hemoglobin 11.1(L) 11.5 - 16.0 g/dL LAB HEMETOLOGY METHOD 07/23/2024 9:52 AM [facility] Hematocrit 36.0 35.0 - 47.0 % LAB HEMETOLOGY METHOD 07/23/2024 9:52 AM [facility] MCV 99.7(H) 79.0 - 98.0 FL LAB HEMETOLOGY METHOD 07/23/2024 9:52 AM [facility] MCH 30.7 27.0 - 32.0 pcg LAB HEMETOLOGY METHOD 07/23/2024 9:52 AM [facility] MCHC 30.8(L) 32.0 - 37.0 g/dL LAB HEMETOLOGY METHOD 07/23/2024 9:52 AM EST [facility] RDW 14.4 11.0 - 15.0 % LAB HEMETOLOGY METHOD 07/23/2024 9:52 AM EST [facility] Platelets 321 130 - 400 K/mcL LAB HEMETOLOGY METHOD 07/23/2024 9:52 AM [facility] MPV 10.5 7.0 - 11.0 FL LAB HEMETOLOGY METHOD 07/23/2024 9:52 AM EST [facility] NRBC 0.0 <1.0 % LAB HEMETOLOGY METHOD 07/23/2024 9:52 AM [facility] NRBC Absolute 0.00 <0.10 K/mcL LAB HEMETOLOGY METHOD 07/23/2024 9:52 AM [facility] Blood Venous blood specimen / Unknown Venipuncture / Unknown 07/23/2024 5:10 AM EST 07/23/2024 9:33 AM EST us Federico Bowman MD LAB BLOOD ORDERABLES Final Resu lt [facility] [address] [place] [address], documented in this encounter Visit Diagnoses Diagnosis Essential (primary) hypertension Unspecified essential hypertension documented in this encounter Care Teams Scoop Driver Relationship Specialty Start Date End Date Federico Bowman MD [address] [place] [address] PCP - General Internal Medicine 07/04/24 documented as of this encounter
--- OUTSIDE RECORDS SUMMARY | 2025-05-28 20:23 | XMS_ITS | Clinical Summary ---
Author Organization [address] [facility] Address [address] [place] [address] Phone Care Team Providers Care Portable Sawmill Operator Name Role Phone Federico Bowman MD Primary Care Provider [phone] Social History Tobacco Use Types Packs/Day Years [...] (1 - Tdap) 1959 Pneumococcal Vaccine: 50+ Ye ars (1 of 1 - PCV) 1990 Zoster Vaccines (1 of 2) 1990 RSV Immunization Adult Patie nts (1 - 1-dose 75+ series) 2015 Falls Risk Assessment 06/27/2024 Medicare Annual Wellness Visit 06/27/2024 Osteoporosis Screening (Bone Density Screening) 06/27/2024 Social Influencers of Health Screening 06/27/2024 Depression Screening 08/01/2024 COVID-19 Vaccine ( - 2023-2 5 season) 2025 Influenza Vaccine (#1) 2025 06/20/2024 HIB Vaccines Aged Out No longer [...] to complete this topic RSV Immunization Patients Un quinn 20 months Aged Out No longer eligible b ased on patient's age to complete this topic Varicella Vaccines Aged Out No longer eligible based on patient's age to complete this topic Insurance MEDICARE [facility] [place] [id number] Care Teams Portable Sawmill Operator Relationship Specialty Start Date End Date Federico Bowman MD [address] [place] [address] PCP - General Internal Medicine 07/04/24
--- OUTSIDE RECORDS SUMMARY | 2025-05-28 20:23 | XMS_ITS | Encounter Summary ---
Author Organization [facility] Address [address] [place] [address] Care Team Providers Care Compounder Sterile Products Name Role Phone Federico Bowman MD Primary Care Provider [phone] Encounter Details Date Type Department Care Team (Late st Contact Info) Description 07/04/2024 Lab Requisition [facility] - Main Lab [address] [facility] [place] [address] Federico Bowman MD [address] [place] [address] Essential (primary) hypertension Social History [...] mmol/L LAB CHEMISTRY METHOD 07/05/2024 8:56 AM [facility] CO2 28 21 - 32 mmol/L LAB CHEMISTRY METHOD 07/05/2024 8:56 AM [facility] Anion Gap 5 3 - 11 LAB CHEMISTRY METHOD 07/05/2024 8:56 AM [facility] Glucose 84 70 - 100 mg/dL LAB CHEMISTRY METHOD 07/05/2024 8:56 AM [facility] BUN 15 5 - 25 mg/dL LAB CHEMISTRY METHOD 07/05/2024 8:56 AM [facility] Creatinine 0.83 0.50 - 1.10 mg/dL LAB CHEMISTRY METHOD 07/05/2024 8:56 AM [facility] eGFR 70 >=60 mL/min/1. 73m2 LAB CHEMISTRY METHOD 07/05/2024 8:56 AM [facility] Comment:Calculation based on the Chronic Kidney Disease Epidemiology Collaboration (CKD-EPI) equation refit without adjustment for race. BUN/Creatinine Ratio 18.1 LAB CHEMISTRY METHOD 07/05/2024 8:56 AM [facility] Calcium 8.8 8.5 - 10.5 mg/dL LAB CHEMISTRY METHOD 07/05/2024 8:56 AM [facility] Blood Venous blood specimen / Unknown Venipuncture / Unknown 07/05/2024 4:57 AM EST 07/05/2024 8:14 AM EST us Federico Bowman MD LAB BLOOD ORDERABLES Final Resu lt [facility] [address] [place] [address], * (ABNORMAL) Complete blood count (07/05/2024 4:57 AM EST) WBC 6.9 4.8 - 10.8 K/mcL LAB HEMETOLOGY METHOD 07/05/2024 8:31 AM [facility] RBC 3.80 3.80 - 4.80 M/mcL LAB HEMETOLOGY METHOD 07/05/2024 8:31 AM [facility] Hemoglobin 11.3(L) 11.5 - 16.0 g/dL LAB HEMETOLOGY METHOD 07/05/2024 8:31 AM [facility] Hematocrit 36.6 35.0 - 47.0 % LAB HEMETOLOGY METHOD 07/05/2024 8:31 AM [facility] MCV 97.1 79.0 - 98.0 FL LAB HEMETOLOGY METHOD 07/05/2024 8:31 AM [facility] MCH 30.0 27.0 - 32.0 pcg LAB HEMETOLOGY METHOD 07/05/2024 8:31 AM [facility] MCHC 30.9(L) 32.0 - 37.0 g/dL LAB HEMETOLOGY METHOD 07/05/2024 8:31 AM [facility] RDW 13.4 11.0 - 15.0 % LAB HEMETOLOGY METHOD 07/05/2024 8:31 AM [facility] Platelets 366 130 - 400 K/mcL LAB HEMETOLOGY METHOD 07/05/2024 8:31 AM [facility] MPV 10.8 7.0 - 11.0 FL LAB HEMETOLOGY METHOD 07/05/2024 8:31 AM [facility] NRBC 0.0 <1.0 % LAB HEMETOLOGY METHOD 07/05/2024 8:31 AM [facility] NRBC Absolute 0.00 <0.10 K/mcL LAB HEMETOLOGY METHOD 07/05/2024 8:31 AM [facility] Blood Venous blood specimen / Unknown Venipuncture / Unknown 07/05/2024 4:57 AM EST 07/05/2024 8:14 AM EST Federico Bowman MD LAB BLOOD ORDERABLES Final Resu lt [facility] [address] [place] [address], documented in this encounter Visit Diagnoses Diagnosis Essential (primary) hypertension Unspecified essential hypertension documented in this encounter Care Teams Compounder Sterile Products Relationship Specialty Start Date End Date Federico Bowman MD [address] [place] [address] PCP - General Internal Medicine 07/04/24 documented as of this encounter
--- OUTSIDE RECORDS SUMMARY | 2025-05-28 20:23 | XMS_ITS | Encounter Summary ---
Author Organization [facility] Address [address] [place] [address] Care Team Providers Care Manager Field Sales Name Role Phone Federico Bowman MD Primary Care Provider [phone] Encounter Details Date Type Department Care Team (Late st Contact Info) Description 07/11/[address] [facility] - Main Lab [address] [facility] [place] [address] Federico Bowman MD [address] [place] [address] Essential (primary) hypertension Social History [...] LAB CHEMISTRY METHOD 07/12/2024 9:45 AM EST [facility] Potassium 4.3 3.5 - 5.5 mmol/L LAB CHEMISTRY METHOD 07/12/2024 9:45 AM EST [facility] Chloride 108 96 - 110 mmol/L LAB CHEMISTRY METHOD 07/12/2024 9:[address] [facility] CO2 29 21 - 32 mmol/L LAB CHEMISTRY METHOD 07/12/2024 9:[address] [facility] Anion Gap 5 3 - 11 LAB CHEMISTRY METHOD 07/12/2024 9:[address] [facility] Glucose 72 70 - 100 mg/dL LAB CHEMISTRY METHOD 07/12/2024 9:[address] [facility] BUN 12 5 - 25 mg/dL LAB CHEMISTRY METHOD 07/12/2024 9:[address] [facility] Creatinine 0.93 0.50 - 1.10 mg/dL LAB CHEMISTRY METHOD 07/12/2024 9:[address] [facility] eGFR 61 >=60 mL/min/1. 73m2 LAB CHEMISTRY METHOD 07/12/2024 9:[address] [facility] Comment:Calculation based on the Chronic Kidney Disease Epidemiology Collaboration (CKD-EPI) equation refit without adjustment for race. BUN/Creatinine Ratio 12.9 LAB CHEMISTRY METHOD 07/12/2024 9:[address] [facility] Calcium 9.1 8.5 - 10.5 mg/dL LAB CHEMISTRY METHOD 07/12/2024 9:[address] [facility] Blood Venous blood specimen / Unknown 07/12/2024 5:10 AM EST 07/12/2024 9:10 AM EST us Federico Bowman MD LAB BLOOD ORDERABLES Final Resu lt [facility] [address] [place] [address], * (ABNORMAL) Complete blood count (07/12/2024 5:10 AM EST) WBC 5.6 4.8 - 10.8 K/mcL LAB HEMETOLOGY METHOD 07/12/2024 9:[address] [facility] RBC 3.80 3.80 - 4.80 M/mcL LAB HEMETOLOGY METHOD 07/12/2024 9:[address] [facility] Hemoglobin 11.5 11.5 - 16.0 g/dL LAB HEMETOLOGY METHOD 07/12/2024 9:[address] [facility] Hematocrit 37.1 35.0 - 47.0 % LAB HEMETOLOGY METHOD 07/12/2024 9:[address] [facility] MCV 97.9 79.0 - 98.0 FL LAB HEMETOLOGY METHOD 07/12/2024 9:[address] [facility] MCH 30.3 27.0 - 32.0 pcg LAB HEMETOLOGY METHOD 07/12/2024 9:[address] [facility] MCHC 31.0(L) 32.0 - 37.0 g/dL LAB HEMETOLOGY METHOD 07/12/2024 9:[address] [facility] RDW 13.8 11.0 - 15.0 % LAB HEMETOLOGY METHOD 07/12/2024 9:[address] [facility] Platelets 313 130 - 400 K/mcL LAB HEMETOLOGY METHOD 07/12/2024 9:[address] [facility] MPV 10.2 7.0 - 11.0 FL LAB HEMETOLOGY METHOD 07/12/2024 9:[address] [facility] NRBC 0.0 <1.0 % LAB HEMETOLOGY METHOD 07/12/2024 9:[address] [facility] NRBC Absolute 0.00 <0.10 K/mcL LAB HEMETOLOGY METHOD 07/12/2024 9:[address] [facility] Blood Venous blood specimen / Unknown 07/12/2024 5:10 AM EST 07/12/2024 9:11 AM EST Federico Bowman MD LAB BLOOD ORDERABLES Final Resu lt [facility] ([facility]) [facility] [address] [place] [address], documented in this encounter Visit Diagnoses Diagnosis Essential (primary) hypertension Unspecified essential hypertension documented in this encounter Care Teams Manager Field Sales Relationship Specialty Start Date End Date Federico Bowman MD [address] [place] [address] PCP - General Internal Medicine 07/04/24 documented as of this encounter
--- OUTSIDE RECORDS SUMMARY | 2025-05-28 20:23 | XMS_ITS | Encounter Summary ---
Author Organization [facility] Address [address] [place] [address] Care Team Providers Care Fuel Distribution System Operator Name Role Phone Federico Bowman MD Primary Care Provider [phone] Encounter Details Date Type Department Care Team (Late st Contact Info) Description 07/13/2024 Lab Requisition [facility] - Main Lab [address] [facility] [place] [address] Federico Bowman MD [address] [place] [address] Essential (primary) hypertension Social History [...] LAB CHEMISTRY METHOD 07/16/2024 11:41 AM EST [facility] Potassium 4.2 3.5 - 5.5 mmol/L LAB CHEMISTRY METHOD 07/16/2024 11:41 AM EST [facility] Chloride 111(H) 96 - 110 mmol/L LAB CHEMISTRY METHOD 07/16/2024 11:41 AM [facility] CO2 25 21 - 32 mmol/L LAB CHEMISTRY METHOD 07/16/2024 11:41 AM [facility] Anion Gap 9 3 - 11 LAB CHEMISTRY METHOD 07/16/2024 11:41 AM [facility] Glucose 79 70 - 100 mg/dL LAB CHEMISTRY METHOD 07/16/2024 11:41 AM [facility] BUN 15 5 - 25 mg/dL LAB CHEMISTRY METHOD 07/16/2024 11:41 AM [facility] Creatinine 0.77 0.50 - 1.10 mg/dL LAB CHEMISTRY METHOD 07/16/2024 11:41 AM [facility] eGFR 76 >=60 mL/min/1. 73m2 LAB CHEMISTRY METHOD 07/16/2024 11:41 AM [facility] LAB Comment:Calculation based on the Chronic Kidney Disease Epidemiology Collaboration (CKD-EPI) equation refit without adjustment for race. BUN/Creatinine Ratio 19.5 LAB CHEMISTRY METHOD 07/16/2024 11:41 AM [facility] Calcium 8.6 8.5 - 10.5 mg/dL LAB CHEMISTRY METHOD 07/16/2024 11:41 AM [facility] AST (SGOT) 12 10 - 42 unit/L LAB CHEMISTRY METHOD 07/16/2024 11:41 AM [facility] ALT (SGPT) 20 10 - 60 unit/L LAB CHEMISTRY METHOD 07/16/2024 11:41 AM [facility] Alkaline Phosphatase 92 42 - 121 unit/L LAB CHEMISTRY METHOD 07/16/2024 11:41 AM [facility] Total Protein 5.1(L) 6.0 - 8.0 g/dL LAB CHEMISTRY METHOD 07/16/2024 11:41 AM [facility] Albumin 2.6(L) 3.2 - 5.0 g/dL LAB CHEMISTRY METHOD 07/16/2024 11:41 AM [facility] Total Bilirubin 0.3 0.0 - 1.4 mg/dL LAB CHEMISTRY METHOD 07/16/2024 11:41 AM [facility] Blood Venous blood specimen / Unknown Venipuncture / Unknown 07/16/2024 5:08 AM EST 07/16/2024 10:15 AM EST us Federico Bowman MD LAB BLOOD ORDERABLES Final Resu lt [facility] [address] [place] [address], * (ABNORMAL) Complete blood count (07/16/2024 5:08 AM EST) WBC 6.9 4.8 - 10.8 K/mcL LAB HEMETOLOGY METHOD 07/16/2024 10:32 AM [facility] RBC 3.50(L) 3.80 - 4.80 M/mcL LAB HEMETOLOGY METHOD 07/16/2024 10:32 AM [facility] Hemoglobin 10.6(L) 11.5 - 16.0 g/dL LAB HEMETOLOGY METHOD 07/16/2024 10:32 AM [facility] Hematocrit 34.3(L) 35.0 - 47.0 % LAB HEMETOLOGY METHOD 07/16/2024 10:32 AM [facility] MCV 99.1(H) 79.0 - 98.0 FL LAB HEMETOLOGY METHOD 07/16/2024 10:32 AM [facility] MCH 30.6 27.0 - 32.0 pcg LAB HEMETOLOGY METHOD 07/16/2024 10:32 AM [facility] MCHC 30.9(L) 32.0 - 37.0 g/dL LAB HEMETOLOGY METHOD 07/16/2024 10:32 AM EST [facility] RDW 14.1 11.0 - 15.0 % LAB HEMETOLOGY METHOD 07/16/2024 10:32 AM EST [facility] Platelets 315 130 - 400 K/mcL LAB HEMETOLOGY METHOD 07/16/2024 10:32 AM EST [facility] MPV 10.7 7.0 - 11.0 FL LAB HEMETOLOGY METHOD 07/16/2024 10:32 AM EST [facility] NRBC 0.0 <1.0 % LAB HEMETOLOGY METHOD 07/16/2024 10:32 AM [facility] NRBC Absolute 0.00 <0.10 K/mcL LAB HEMETOLOGY METHOD 07/16/2024 10:32 AM [facility] Blood Venous blood specimen / Unknown Venipuncture / Unknown 07/16/2024 5:08 AM EST 07/16/2024 10:12 AM EST us Federico Bowmna MD LAB BLOOD ORDERABLES Final Resu lt [facility] [address] [place] [address], documented in this encounter Visit Diagnoses Diagnosis Essential (primary) hypertension Unspecified essential hypertension documented in this encounter Care Teams Fuel Distribution System Operator Relationship Specialty Start Date End Date Federico Bowman MD [address] [place] [address] PCP - General Internal Medicine 07/04/24 documented as of this encounter
--- OUTSIDE RECORDS SUMMARY | 2025-05-28 20:23 | XMS_ITS | Encounter Summary ---
Author Organization [facility] Address [address] [place] [address] Phone Care Team Providers Care Licensed Insurance Agent Name Role Phone Pcp, Unknown Primary Care Provider Unavailabl e Encounter Details Date Type Department Care Team (Latest Contact Info) Description 04/14/2020 Transcribe Orders [facility] Laboratory [address] [place] [address] Robert Darling, DO [address] [place] [address] Symptomatic menopausal or female climacteric states (Primary [...] EDT) PREGNENOLONE 149 33 - 248 NG/DL [facility] MED/PATH [facility] Comment: (NOTE) ADDITIONAL INFORMATION This test was developed and its performance characteristics determined by [facility] in a manner consistent with CLIA requirements. This test has not been cleared or approved by the U.S. Food and Drug Administration. Blood 04/14/2020 3:07 PM EDT 04/14/2020 3:14 PM EDT [facility] LAB BLOOD ORDERABLES Final Resu lt Performing Organization Address [facility] de Phone Number [facility] LAB MED/PATH [address] [address] * Sex hormone binding globulin (04/14/2020 3:07 PM EDT) SEX HORMONE BIND GLOB 60 nmol/L [facility] MED/PATH [facility]PER[facility] Comment: (NOTE) REFERENCE VALUE 18-144 (non-) Blood 04/14/2020 3:07 PM EDT 04/14/2020 3:14 PM EDT [facility] LAB BLOOD ORDERABLES Final Resu lt Performing Organization Address [facility] de Phone Number [facility] LAB MED/PATH [address] [place] [address] * (ABNORMAL) DHEA-SULFATE (04/14/2020 3:07 PM EDT) DHEAS 241(H) 5.3 - 124 mcg/dL [facility] MED/PATH [facility] Blood 04/14/2020 3:07 PM EDT 04/14/2020 3:14 PM EDT [facility] LAB BLOOD ORDERABLES Final Resu lt Performing Organization Address [facility] de Phone Number [facility] LAB MED/PATH [address] [address] * (ABNORMAL) 25-OH vitamin D (04/14/2020 3:07 PM EDT) 25 OH VIT D (TOTAL) 74(H) 30 - 60 ng/mL [facility] Blood 04/14/2020 3:07 PM EDT 04/14/2020 3:15 PM EDT [facility] BLOOD ORDERABLES Final Resu lt Performing Organization Address [facility] Co de Phone Number [facility] [address] [place] [address] * Testosterone, total and free (04/14/2020 3:07 PM EDT) [facility] FREE TESTOSTERONE 0.43 0.06 - 0.76 ng/dL [facility] LAB MED/PATH [facility]PERIOR Comment: (NOTE) ADDITIONAL INFORMATION Testing performed by [facility]. This test was developed and its performance characteristics determined by [facility] in a manner consistent with CLIA requirements. This test has not been cleared or approved by the U.S. Food and Drug Administration. TESTOSTERONE, TOTAL 31 8 - 60 ng/dL [facility] MED/PATH [facility] Comment: (NOTE) ADDITIONAL INFORMATION Testing performed by Liquid Chromatography-Tandem Mass Spectrometry (LC-MS/MS). This test was developed and its performance characteristics determined by [facility] in a manner consistent with CLIA requirements. This test has not been cleared or approved by the U.S. Food and Drug Administration. Blood 04/14/2020 3:07 PM EDT 04/14/2020 3:14 PM EDT [facility] LAB BLOOD ORDERABLES Final Resu lt Performing Organization Address [facility] de Phone Number [facility] LAB MED/PATH [facility]IOR [address] [place] [phone] * Progesterone (04/14/2020 3:07 PM EDT) PROGESTERONE 1.56 ng/mL [facility] Comment: FEMALE: Follicular: 0.057 - 0.893 ng/ml Luteal: 1.83 - 23.9 ng/ml Blood 04/14/2020 3:07 PM EDT 04/14/2020 3:15 PM EDT [facility] LAB BLOOD ORDERABLES Final Resu lt Performing Organization Address [facility] Co de Phone Number [address] [address] * Estradiol (04/14/2020 3:07 PM EDT) ESTRADIOL 44 pg/mL [facility] Comment: FEMALE: Follicular: Less than 12 to 233 pg/ml Midcycle: 41 - 398 pg/ml Luteal: 22 - 341 pg/ml Postmenopausal: less than 5 - 138 pg/ml Blood 04/14/2020 3:07 PM EDT 04/14/2020 3:15 PM EDT [facility] LAB BLOOD ORDERABLES Final Resu lt Performing Organization Address [facility] Co de Phone Number [address] [address] documented in this encounter Visit Diagnoses Diagnosis Symptomatic menopausal or female climacteric states- Primary Essential hypertension, benign Asthmatic bronchitis without complication, unspecified asthma severity, unspecified whether persistent Glaucoma, unspecified glaucoma type, unspecified laterality Avitaminosis D Unspecified vitamin D deficiency documented in this encounter Care Teams Licensed Insurance Agent Relationship Specialty Start Date End Date Pcp, Unknown PCP - General 01/25/20 documented as of this encounter Additional Source Comments The information contained in this document represents components of the legal health record. It is not the complete legal health record.[facility]
--- OUTSIDE RECORDS SUMMARY | 2025-05-28 20:23 | XMS_ITS | Encounter Summary ---
Author Organization [facility] Address [address] [place] [address] Care Team Providers Care Ambulette Driver Name Role Phone Federico Bowman MD Primary Care Provider [phone] Encounter Details Date Type Department Care Team (Late st Contact Info) Description 07/09/2024 Lab Requisition [facility] - Main Lab [address] [facility] [email or web address] [address] Federico Bowman MD [address] [place] [address] Essential (primary) hypertension Social History [...] LAB CHEMISTRY METHOD 07/10/2024 10:27 AM EST [facility] LAB Potassium 4.3 3.5 - 5.5 mmol/L LAB CHEMISTRY METHOD 07/10/2024 10:27 AM EST [facility] LAB Chloride 111(H) 96 - 110 mmol/L LAB CHEMISTRY METHOD 07/10/2024 10:27 AM EST [facility] LAB CO2 28 21 - 32 mmol/L LAB CHEMISTRY METHOD 07/10/2024 10:27 AM [facility] LAB Anion Gap 5 3 - 11 LAB CHEMISTRY METHOD 07/10/2024 10:27 AM [facility] LAB Glucose 75 70 - 100 mg/dL LAB CHEMISTRY METHOD 07/10/2024 10:27 AM [facility] LAB BUN 13 5 - 25 mg/dL LAB CHEMISTRY METHOD 07/10/2024 10:27 AM [facility] LAB Creatinine 0.76 0.50 - 1.10 mg/dL LAB CHEMISTRY METHOD 07/10/2024 10:27 AM [facility] LAB eGFR 77 >=60 mL/min/1. 73m2 LAB CHEMISTRY METHOD 07/10/2024 10:27 AM [facility] LAB Comment:Calculation based on the Chronic Kidney Disease Epidemiology Collaboration (CKD-EPI) equation refit without adjustment for race. BUN/Creatinine Ratio 17.1 LAB CHEMISTRY METHOD 07/10/2024 10:27 AM [facility] LAB Calcium 8.6 8.5 - 10.5 mg/dL LAB CHEMISTRY METHOD 07/10/2024 10:27 AM [facility] LAB AST (SGOT) 10 10 - 42 unit/L LAB CHEMISTRY METHOD 07/10/2024 10:27 AM [facility] ALT (SGPT) 12 10 - 60 unit/L LAB CHEMISTRY METHOD 07/10/2024 10:27 AM [facility] LAB Alkaline Phosphatase 91 42 - 121 unit/L LAB CHEMISTRY METHOD 07/10/2024 10:27 AM [facility] Total Protein 5.1(L) 6.0 - 8.0 g/dL LAB CHEMISTRY METHOD 07/10/2024 10:27 AM [facility] Albumin 2.7(L) 3.2 - 5.0 g/dL LAB CHEMISTRY METHOD 07/10/2024 10:27 AM [facility] Total Bilirubin 0.4 0.0 - 1.4 mg/dL LAB CHEMISTRY METHOD 07/10/2024 10:27 AM EST [facility] Blood Venous blood specimen / Unknown Venipuncture / Unknown 07/10/2024 4:56 AM EST 07/10/2024 9:43 AM EST us Federico Bowman MD LAB BLOOD ORDERABLES Final Resu lt [facility] [address] [place] [address], documented in this encounter Visit Diagnoses Diagnosis Essential (primary) hypertension Unspecified essential hypertension documented in this encounter Care Teams Ambulette Driver Relationship Specialty Start Date End Date Federico Bowman MD [address] [place] [address] PCP - General Internal Medicine 07/04/24 documented as of this encounter
--- OUTSIDE RECORDS SUMMARY | 2025-05-28 20:23 | XMS_ITS | Clinical Summary ---
Author Organization [facility] Address [address] [place] [address] Phone Care Team Providers Care Transition Advisor Name Role Phone Pcp, Unknown Primary Care [...] file Insurance MEDICARE PART A & B [facility] MEDICARE SUPPLEMENT MEDICARE PART A & B [employer] MEDICARE SUPPLEMENT MEDICARE PART A & B Member Subscriber Plan / Payer ( fective 2005-) Name:Yumiko Pearce Member ID:[id number] Relation to Subscriber:Self Name:Yumiko Pearce Subscriber ID:[id number] Payer ID:[id number] Group ID:Not on file Type:Medicare Address: [employer] [address] [employer] MEDICARE SUPPLEMENT MEDICARE PART A & [facility] EXTENSION MEDICARE SUPPLEMENT MEDICARE PART A & B [facility] EX[employer]ENSION MEDICARE SUPPLEMENT MEDICARE PART A & B Member Subscriber Plan / Payer (Ef fective 2005-Present) Name:Yumiko Pearce Member ID:[id number] Relation to Subscriber:Self Name:Yumiko Pearce Subscriber ID:[id number] Payer ID:[id number] Group ID:Not on file Type:Medicare Address: [employer] [address] [facility] EXTENSION MEDICARE SUPPLEMENT MEDICARE PART A & B [employer] MEDICARE SUPPLEMENT MEDICARE PART A & B [employer] [place] [phone] MEDICARE PART A & B [facility] EX[employer]ENSION MEDICARE SUPPLEMENT Care Teams Transition Advisor Relationship Specialty Start Date End Date Pcp, Unknown PCP - General 01/25/20 Additional Source Comments The information contained in this document represents components of the legal health record. It is not the complete legal health record.[facility]
--- OUTSIDE RECORDS SUMMARY | 2025-05-28 20:23 | XMS_ITS | Patient Health Record ---
Author [facility] Address [address] [facility] [place] [address] Care Team Providers Care Color Dipper Name Role Phone Boubacar Delarosa MD Primary Care Provider Concepción Law Unavailable [phone] Allergies Allergen (clinical drug ingredient) Drug/Non Drug [...] Problem Acquired hammer toe of right foot (7595928276176178) Other hammer toe(s) (acquired), right foot (M20.41) Active confirmed Problem Acquired hammer toe of left foot (6368265533598454) Other hammer toe(s) (acquired), left foot (M20.42) Active confirmed Problem Bilateral atherosclerosis of arteries of lower limbs (disorder) (34177855364738194 ) Unspecified atherosclerosis of [place] arteries of extremities, bilateral legs (I70.203) Active confirmed Problem Unsteady gait (95802964) Unsteady gait (R26.81) Active confirmed Problem 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) Active confirmed Problem Plantarflexion deformity of right foot (finding) (3844712354701820) Equinus contracture of right ankle (M24.571) Active confirmed Plan Of Treatment Pending Test Test Name Order Date X ray : Foot, left 3V 11/29/2018 X ray : Foot, right 3V 11/29/2018 [id number] NAIL, 6 OR MORE 04/07/2018 [id number] NAIL, 6 OR MORE 06/30/2018 [id number] SKIN LESIONS, OVER 4 04/07/20 18 [id number] SKIN LESIONS, OVER 4 06/30/20 18 Insurance Providers Payer Name Payer Address Payer Phone Subscriber Number Group Number Insured Name Patient Relationship to Insured Coverage Start Date Coverage End Date Medicare National [employer] [address] [place] [address] [id number] Yumiko Pearce Self - patient is the insured Referron ([facility]) [address] [place] [address] [id number] Yumiko Pearce Self - patient is the insured Medical (General) History Medical History History ICD Code Arthritis asthma Broken bones Cataracts Glaucoma High blood pressure Sciatica Back,Hip,and Knee pain Surgical History Surgery Date(Month/Year) femur 01/10/2015
--- OUTSIDE RECORDS SUMMARY | 2025-05-28 20:23 | XMS_ITS | Encounter Summary ---
Author Organization [facility] Address [address] [facility] [address] [place] [address] Phone Care Team Providers Care Rf Engineer Name Role Phone Conrado Hampton MD Primary Care Provider Pcp, Unknown Primary Care Provider Unavailabl e Encounter Details Date Type Department Care Team (Late st Contact Info) Description 02/21/2018 Procedure Pass [facility], [address] [address] Social History Tobacco Use Types Packs/Day Years [...] on filedocumented in this encounter Care Teams Rf Engineer Relationship Specialty Start Date End Date Conrado Hampton MD [address] [place] [address] [address] [place] [address] PCP - General Pulmonary Disease 12/12/17 01/24/20 Pcp, Unknown PCP - General 01/25/20 documented as of this encounter Additional Source Comments The information contained in this document represents components of the legal health record. It is not the complete legal health record.[facility]
--- OUTSIDE RECORDS SUMMARY | 2025-05-28 20:23 | XMS_ITS | Encounter Summary ---
Author Organization [facility] Address [address] [place] [address] Care Team Providers Care Swiss Type Screw Machine Operator Name Role Phone Federico Bowman MD Primary Care Provider [phone] Encounter Details Date Type Department Care Team (Late st Contact Info) Description 07/18/2024 Lab Requisition [facility] - Main Lab [address] [facility] [place] [address] Federico Bowman MD [address] [place] [address] Essential (primary) hypertension Social History [...] LAB CHEMISTRY METHOD 07/19/2024 1:05 PM EST [facility] LAB Potassium 4.1 3.5 - 5.5 mmol/L LAB CHEMISTRY METHOD 07/19/2024 1:05 PM EST [facility] LAB Chloride 108 96 - 110 mmol/L LAB CHEMISTRY METHOD 07/19/2024 1:05 PM [facility] LAB CO2 30 21 - 32 mmol/L LAB CHEMISTRY METHOD 07/19/2024 1:05 PM [facility] Anion Gap 6 3 - 11 LAB CHEMISTRY METHOD 07/19/2024 1:05 PM [facility] LAB Glucose 69(L) 70 - 100 mg/dL LAB CHEMISTRY METHOD 07/19/2024 1:05 PM [facility] BUN 16 5 - 25 mg/dL LAB CHEMISTRY METHOD 07/19/2024 1:05 PM [facility] Creatinine 0.82 0.50 - 1.10 mg/dL LAB CHEMISTRY METHOD 07/19/2024 1:05 PM [facility] LAB eGFR 71 >=60 mL/min/1. 73m2 LAB CHEMISTRY METHOD 07/19/2024 1:05 PM [facility] LAB Comment:Calculation based on the Chronic Kidney Disease Epidemiology Collaboration (CKD-EPI) equation refit without adjustment for race. BUN/Creatinine Ratio 19.5 LAB CHEMISTRY METHOD 07/19/2024 1:05 PM [facility] Calcium 9.1 8.5 - 10.5 mg/dL LAB CHEMISTRY METHOD 07/19/2024 1:05 PM [facility] Blood Venous blood specimen / Unknown Venipuncture / Unknown 07/19/2024 5:03 AM EST 07/19/2024 11:27 AM EST us Federico Bowman MD LAB BLOOD ORDERABLES Final Resu lt [facility] [address] [place] [address], * (ABNORMAL) Complete blood count (07/19/2024 5:03 AM EST) WBC 6.0 4.8 - 10.8 K/mcL LAB HEMETOLOGY METHOD 07/19/2024 12:41 PM [facility] RBC 4.00 3.80 - 4.80 M/mcL LAB HEMETOLOGY METHOD 07/19/2024 12:41 PM [facility] Hemoglobin 12.3 11.5 - 16.0 g/dL LAB HEMETOLOGY METHOD 07/19/2024 12:41 PM [facility] Hematocrit 40.1 35.0 - 47.0 % LAB HEMETOLOGY METHOD 07/19/2024 12:41 PM [facility] MCV 100.3(H) 79.0 - 98.0 FL LAB HEMETOLOGY METHOD 07/19/2024 12:41 PM [facility] MCH 30.8 27.0 - 32.0 pcg LAB HEMETOLOGY METHOD 07/19/2024 12:41 PM [facility] MCHC 30.7(L) 32.0 - 37.0 g/dL LAB HEMETOLOGY METHOD 07/19/2024 12:41 PM [facility] RDW 14.6 11.0 - 15.0 % LAB HEMETOLOGY METHOD 07/19/2024 12:41 PM [facility] Platelets 343 130 - 400 K/mcL LAB HEMETOLOGY METHOD 07/19/2024 12:41 PM [facility] MPV 10.4 7.0 - 11.0 FL LAB HEMETOLOGY METHOD 07/19/2024 12:41 PM [facility] NRBC 0.0 <1.0 % LAB HEMETOLOGY METHOD 07/19/2024 12:41 PM [facility] NRBC Absolute 0.00 <0.10 K/mcL LAB HEMETOLOGY METHOD 07/19/2024 12:41 PM [facility] Blood Venous blood specimen / Unknown Venipuncture / Unknown 07/19/2024 5:03 AM EST 07/19/2024 11:27 AM EST us Federico Bowman MD LAB BLOOD ORDERABLES Final Resu lt [facility] [address] [place] [address], documented in this encounter Visit Diagnoses Diagnosis Essential (primary) hypertension Unspecified essential hypertension documented in this encounter Care Teams Swiss Type Screw Machine Operator Relationship Specialty Start Date End Date Federico Bowman MD [address] [place] [address] PCP - General Internal Medicine 07/04/24 documented as of this encounter
== END 2025-05-28 17:51 | disposition home or self-care (01) ==
LOC: HO.MRI 17:50
PROVIDERS: Visit Provider Psychiatry & Neurology Neurology
DX: G91.2 (Idiopathic) normal pressure hydrocephalus (principal)
CPT/HCPCS: 70551

== ENCOUNTER 2025-06-04 13:01 | Outpatient (AMB) | payer MEDICARE, OTHER, SELFPAY ==
--- OUTSIDE RECORDS SUMMARY | 2024-01-25 08:30 | XMS_ITS ---
Author Organization [facility] Address [address] [place] [address] Care Team Providers Care Health Information Coder Name Role Phone [place] ERWIN, Boubacar Primary Care Provider Concepción Law [phone] Encounters Encounter Location Date Provider Diagnosis [facility] [address] [place] [address] 01/25/2024 Concepción Solis Plan Of Treatment No Information Progress Notes * Yumiko MARIE MDOB:09/1939 (85 yo F)Acc No.[id number]:01/25/2024 Progress Note Patient: Yumiko JANE Provider: Charlie Solis DPM :1940 A ge:83 Y S ex:Female Date:01/25/2024 Address:[address] [facility] Pcp:Boubacar Dlearosa MD Subjective: * Chief Complaints: * * Medical History: Objective: * Vitals: Assessment: Plan: * Treatment: * Images: * The named appointment provid er may or may not be the originator of this progress note, and it is not deemed complete until electronically signed by the appointment provider. Sign off status: Pending * Provider: Charlie Solis DPM Date: 0 01/25/2024 Generated for Jagdish levi/[place]/eTransmitting on: 08/04/2024 03:42 PM EST
[2025-06-04 13:14] VITALS: BMI 19.9
--- NOTE | 2025-06-04 13:14 | MHC.OFFVIS ---
Vital Signs 06/04/25 13:14 Height 5 ft 7 in Weight 127 lb BMI 19.9 Intake Visit Reasons: TRUMAN foot pain Intake Note: Yumiko is an 85 year old female who presents today as a new patient for an evaluation of her bilateral foot pain. Pt reports she has callous on the bottom of her left foot. She has fungus on all her toes and her second toe of her left foot appears swollen. She has not tried any previous treatment. 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 Patient has been in and out of rehab facilities due to hospital admissions and has been unable to obtain her routine podiatric care. As per the patient's daughter, she also noted a lesion on top of her left 2nd toe and her right 4th toe. She denies any new recent signs of infection. She denies any pain to her feet. [facility] Medical History (Updated 06/04/25 @ 16:01 by Nathaniel Cunningham DPM) NPH (normal pressure hydrocephalus) Gait disorder Cognitive change Parkinsons disease Acute deep vein thrombosis of left lower extremity Hypertension COPD (chronic obstructive pulmonary disease) Allergic rhinitis Surgical History History of surgery No history of previous surgery Family History Mother No problems noted. Father No problems noted. Social History Household Members: Children Housing: House Do you presently have visiting nurse or other home services: Yes Alcohol intake: never Patient Tobacco Use Status: Never used Tobacco Tobacco use type: Cigarette e-Cigarette/Vaping Use: Never Used Second Hand Smoke Exposure: No service: No Current occupational status: retired Cognitive needs: Yes (Walker, cane, wheelchair) Hearing needs: No Vision needs: Yes (reading glasses) Review of Systems Const All systems reviewed & are unremarkable except as noted in HPI and below Physical Exam Vital Signs: BMI result Body Mass Index 19.9 Extrem Other: *Bilateral Lower Extremity Focused Diabetic Foot Exam Vascular: DP/PT 1/4 bilaterally, CFT<3s to digits, TG warm to cool, no pedal edema, pedal hair absent Derm: Skin: Preulcerative stage I skin breakdown left dorsal 2nd PIPJ and right 4th PIPJ. No underlying ulcers or signs of infection. Interdigital spaces: Clear, no maceration or fungal infection. Nails: Severe Thickened elongated dystrophic discolored toenails x 10 with subungual debris. Neuro: Protective sensation grossly diminished to bilateral lower extremities Msk: Deformities: Rigid flexion deformity hammertoes bilateral feet digits 2 through 5 PIPJ and DIPJ. Both 2nd digits appear enlarged, with skin tension lines present. No increased warmth or signs of infection. Muscle strength: 4/5 in all muscle groups. Gait: Wheelchair, not observed Footwear Assessment: Shoes inspected; appeared to narrow. Office Procedures AMB Debridement/Avulsion Podia Details: Procedure: Nail debridement Location: 10 nails, bilateral feet Anesthesia: N/A Description: The affected toenails were cleansed with an antiseptic solution. Using sterile nail nippers and a rotary melanie, dystrophic and mycotic nail material was carefully debrided and reduced in thickness. Care was taken to avoid trauma to the surrounding skin and nail bed. All debris was removed as tolerated. The area was inspected for signs of infection or ulceration. Patient tolerated the procedure well without complications. Tolerance: Patient tolerated procedure well, no immediate complications. Class B findings as per physical exam findings above. The patient has a diagnosis of advanced dementia, and inability to weightbear, and history of lower extremity ulcerations. The patient is at increased risk for complications such as ulceration, infection, and difficulty with self-care. Debridement of elongated toenails is medically necessary to prevent development of pressure-related lesions, reduce risk of secondary infection, and maintain foot health in high-risk comorbidities. 91524-Fzxkvdffdcy of Nail 6+ Procedure code (CPT) selection complete Assessment & Plan Assessment & Plan (1) Acquired hammertoes of both feet: Code(s): M20.41 - Other hammer toe(s) (acquired), right foot; M20.42 - Other hammer toe(s) (acquired), left foot Category: Medical Plan: Applied Band-Aid over the left 2nd PIPJ. Recommended close monitoring to continue use of Band-Aids until they purchase a offloading callus/circular pad. (2) Venous stasis dermatitis of both lower extremities: Code(s): I87.2 - Venous insufficiency (chronic) (peripheral) Category: Medical Plan: Recommended use of compression stockings (3) Onychogryphosis: Code(s): L60.2 - Onychogryphosis Category: Medical Plan: Debrided elongated nails x 10 using a sterile nail Nipper and Dremel tool. (4) Gait disorder: Comment: multifactorial ? NPH , frontal gait , musculoskeletal , astasia abasia Code(s): R26.9 - Unspecified abnormalities of gait and mobility Category: Medical Plan: The patient requires routine nail care due to her gait disorder and dementia (5) Parkinsons disease: Code(s): G20.A1 - Parkinson's disease without dyskinesia, without mention of fluctuations Category: Medical Plan: The patient requires routine nail care due to her gait disorder and dementia Orders: Orders AMB Debridement/Avulsion Podiatry Today L60.2 - Onychogryphosis Coding Level of Care Code New Pt Level 4 (71530) Diagnoses Acquired hammertoes of both feet M20.41; M20.42 Venous stasis dermatitis of both lower extremities I87.2 Onychogryphosis L60.2 Gait disorder R26.9 Parkinsons disease G20.A1 CPT Codes Skin Debridement - CPT: 51067-Fprnqtbvjlo of Nail 6+ ([id number]) Time Spent (min) 30
--- OUTSIDE RECORDS SUMMARY | 2025-06-04 15:42 | XMS_ITS | Encounter Summary ---
Author Organization [facility] Address [address] [place] [address] Care Team Providers Care Studio Director Name Role Phone Federico Bowman MD Primary Care Provider Encounter Details Date Type Department Care Team (Late st Contact Info) Description 07/09/2024 Lab Requisition [facility] - Main Lab [address] [facility] [employer] [place] [address] Federico Bowman MD [address] [place] [address] Essential (primary) hypertension Social History [...] LAB CHEMISTRY METHOD 07/10/2024 10:27 AM EST [facility] LAB Potassium 4.3 3.5 - 5.5 mmol/L LAB CHEMISTRY METHOD 07/10/2024 10:27 AM EST [facility] LAB Chloride 111(H) 96 - 110 mmol/L LAB CHEMISTRY METHOD 07/10/2024 10:27 AM EST [facility] LAB CO2 28 21 - 32 mmol/L LAB CHEMISTRY METHOD 07/10/2024 10:27 AM [facility] LAB Anion Gap 5 3 - 11 LAB CHEMISTRY METHOD 07/10/2024 10:27 AM [facility] LAB Glucose 75 70 - 100 mg/dL LAB CHEMISTRY METHOD 07/10/2024 10:27 AM [facility] BUN 13 5 - 25 mg/dL LAB CHEMISTRY METHOD 07/10/2024 10:27 AM [facility] LAB Creatinine 0.76 0.50 - 1.10 mg/dL LAB CHEMISTRY METHOD 07/10/2024 10:27 AM [facility] LAB eGFR 77 >=60 mL/min/1. 73m2 LAB CHEMISTRY METHOD 07/10/2024 10:27 AM [facility] LAB Comment:Calculation based on the Chronic Kidney Disease Epidemiology Collaboration (CKD-EPI) equation refit without adjustment for race. BUN/Creatinine Ratio 17.1 LAB CHEMISTRY METHOD 07/10/2024 10:27 AM [facility] LAB Calcium 8.6 8.5 - 10.5 mg/dL LAB CHEMISTRY METHOD 07/10/2024 10:27 AM [facility] LAB AST (SGOT) 10 10 - 42 unit/L LAB CHEMISTRY METHOD 07/10/2024 10:27 AM [facility] LAB ALT (SGPT) 12 10 - 60 unit/L LAB CHEMISTRY METHOD 07/10/2024 10:27 AM [facility] LAB Alkaline Phosphatase 91 42 - 121 unit/L LAB CHEMISTRY METHOD 07/10/2024 10:27 AM [facility] LAB Total Protein 5.1(L) 6.0 - 8.0 g/dL LAB CHEMISTRY METHOD 07/10/2024 10:27 AM [facility] LAB Albumin 2.7(L) 3.2 - 5.0 g/dL LAB CHEMISTRY METHOD 07/10/2024 10:27 AM [facility] LAB Total Bilirubin 0.4 0.0 - 1.4 mg/dL LAB CHEMISTRY METHOD 07/10/2024 10:27 AM EST [facility] LAB Blood Venous blood specimen / Unknown Venipuncture / Unknown 07/10/2024 4:56 AM EST 07/10/2024 9:43 AM EST us Federico Bowman MD LAB BLOOD ORDERABLES Final Resu lt [facility] LAB [address] [place] [address], documented in this encounter Visit Diagnoses Diagnosis Essential (primary) hypertension Unspecified essential hypertension documented in this encounter Care Teams Studio Director Relationship Specialty Start Date End Date Federico Bowman MD [address] [place] [address] PCP - General Internal Medicine 07/04/24 documented as of this encounter
--- OUTSIDE RECORDS SUMMARY | 2025-06-04 15:42 | XMS_ITS | Encounter Summary ---
Author Organization [facility] Address [address] [place] [address] Care Team Providers Care Jewelry Cutter Name Role Phone Feedrico Bowman MD Primary Care Provider [phone] Encounter Details Date Type Department Care Team (Late st Contact Info) Description 07/18/2024 Lab Requisition [facility] - Main Lab [address] [facility] [place] [address] Federico Bowman MD [address] [place] [address] Essential (primary) hypertension Social History [...] LAB CHEMISTRY METHOD 07/19/2024 1:05 PM EST [facility] LAB Potassium 4.1 3.5 - 5.5 mmol/L LAB CHEMISTRY METHOD 07/19/2024 1:05 PM EST [facility] LAB Chloride 108 96 - 110 mmol/L LAB CHEMISTRY METHOD 07/19/2024 1:05 PM [facility] LAB CO2 30 21 - 32 mmol/L LAB CHEMISTRY METHOD 07/19/2024 1:05 PM [facility] LAB Anion Gap 6 3 - 11 LAB CHEMISTRY METHOD 07/19/2024 1:05 PM [facility] LAB Glucose 69(L) 70 - 100 mg/dL LAB CHEMISTRY METHOD 07/19/2024 1:05 PM [facility] BUN 16 5 - 25 mg/dL LAB CHEMISTRY METHOD 07/19/2024 1:05 PM [facility] LAB Creatinine 0.82 0.50 - 1.10 mg/dL LAB CHEMISTRY METHOD 07/19/2024 1:05 PM [facility] LAB eGFR 71 >=60 mL/min/1. 73m2 LAB CHEMISTRY METHOD 07/19/2024 1:05 PM [facility] LAB Comment:Calculation based on the Chronic Kidney Disease Epidemiology Collaboration (CKD-EPI) equation refit without adjustment for race. BUN/Creatinine Ratio 19.5 LAB CHEMISTRY METHOD 07/19/2024 1:05 PM [facility] LAB Calcium 9.1 8.5 - 10.5 mg/dL LAB CHEMISTRY METHOD 07/19/2024 1:05 PM [facility] LAB Blood Venous blood specimen / Unknown Venipuncture / Unknown 07/19/2024 5:03 AM EST 07/19/2024 11:27 AM EST us Federico Bowman MD LAB BLOOD ORDERABLES Final Resu lt [facility] LAB [address] [place] [address], * (ABNORMAL) Complete blood count (07/19/2024 5:03 AM EST) WBC 6.0 4.8 - 10.8 K/mcL LAB HEMETOLOGY METHOD 07/19/2024 12:41 PM [facility] RBC 4.00 3.80 - 4.80 M/mcL LAB HEMETOLOGY METHOD 07/19/2024 12:41 PM [facility] LAB Hemoglobin 12.3 11.5 - 16.0 g/dL LAB HEMETOLOGY METHOD 07/19/2024 12:41 PM [facility] LAB Hematocrit 40.1 35.0 - 47.0 % LAB HEMETOLOGY METHOD 07/19/2024 12:41 PM [facility] LAB MCV 100.3(H) 79.0 - 98.0 FL LAB HEMETOLOGY METHOD 07/19/2024 12:41 PM [facility] LAB MCH 30.8 27.0 - 32.0 pcg LAB HEMETOLOGY METHOD 07/19/2024 12:41 PM [facility] LAB MCHC 30.7(L) 32.0 - 37.0 g/dL LAB HEMETOLOGY METHOD 07/19/2024 12:41 PM [facility] LAB RDW 14.6 11.0 - 15.0 % LAB HEMETOLOGY METHOD 07/19/2024 12:41 PM [facility] LAB Platelets 343 130 - 400 K/mcL LAB HEMETOLOGY METHOD 07/19/2024 12:41 PM [facility] LAB MPV 10.4 7.0 - 11.0 FL LAB HEMETOLOGY METHOD 07/19/2024 12:41 PM [facility] LAB NRBC 0.0 <1.0 % LAB HEMETOLOGY METHOD 07/19/2024 12:41 PM [facility] LAB NRBC Absolute 0.00 <0.10 K/mcL LAB HEMETOLOGY METHOD 07/19/2024 12:41 PM [facility] LAB Blood Venous blood specimen / Unknown Venipuncture / Unknown 07/19/2024 5:03 AM EST 07/19/2024 11:27 AM EST us Federico Bowman MD LAB BLOOD ORDERABLES [email or web address] [address] [place] [address], documented in this encounter Visit Diagnoses Diagnosis Essential (primary) hypertension Unspecified essential hypertension documented in this encounter Care Teams Jewelry Cutter Relationship Specialty Start Date End Date Federico Bowman MD [address] [place] [address] PCP - General Internal Medicine 07/04/24 documented as of this encounter
--- OUTSIDE RECORDS SUMMARY | 2025-06-04 15:42 | XMS_ITS | Encounter Summary ---
Author Organization [facility] Address [address] [place] [address] Care Team Providers Care Tobacco Scrap Sifter Name Role Phone Federico Bowman MD Primary Care Provider [phone] Encounter Details Date Type Department Care Team (Late st Contact Info) Description 07/13/2024 Lab Requisition [facility] - Main Lab [address] [facility] [place] [place] [address] Federico Bowman MD [address] [place] [address] Essential (primary) hypertension Social History [...] mmol/L LAB CHEMISTRY METHOD 07/16/2024 11:41 AM [facility] LAB CO2 25 21 - 32 mmol/L LAB CHEMISTRY METHOD 07/16/2024 11:41 AM [facility] LAB Anion Gap 9 3 - 11 LAB CHEMISTRY METHOD 07/16/2024 11:41 AM [facility] LAB Glucose 79 70 - 100 mg/dL LAB CHEMISTRY METHOD 07/16/2024 11:41 AM [facility] LAB BUN 15 5 - 25 mg/dL LAB CHEMISTRY METHOD 07/16/2024 11:41 AM [facility] LAB Creatinine 0.77 0.50 - 1.10 mg/dL LAB CHEMISTRY METHOD 07/16/2024 11:41 AM [facility] LAB eGFR 76 >=60 mL/min/1. 73m2 LAB CHEMISTRY METHOD 07/16/2024 11:41 AM [facility] LAB Comment:Calculation based on the Chronic Kidney Disease Epidemiology Collaboration (CKD-EPI) equation refit without adjustment for race. BUN/Creatinine Ratio 19.5 LAB CHEMISTRY METHOD 07/16/2024 11:41 AM [facility] LAB Calcium 8.6 8.5 - 10.5 mg/dL LAB CHEMISTRY METHOD 07/16/2024 11:41 AM [facility] LAB AST (SGOT) 12 10 - 42 unit/L LAB CHEMISTRY METHOD 07/16/2024 11:41 AM [facility] LAB ALT (SGPT) 20 10 - 60 unit/L LAB CHEMISTRY METHOD 07/16/2024 11:41 AM [facility] LAB Alkaline Phosphatase 92 42 - 121 unit/L LAB CHEMISTRY METHOD 07/16/2024 11:41 AM [facility] LAB Total Protein 5.1(L) 6.0 - 8.0 g/dL LAB CHEMISTRY METHOD 07/16/2024 11:41 AM [facility] Albumin 2.6(L) 3.2 - 5.0 g/dL LAB CHEMISTRY METHOD 07/16/2024 11:41 AM [facility] Total Bilirubin 0.3 0.0 - 1.4 mg/dL LAB CHEMISTRY METHOD 07/16/2024 11:41 AM [facility] LAB Blood Venous blood specimen / Unknown Venipuncture / Unknown 07/16/2024 5:08 AM EST 07/16/2024 10:15 AM EST us Federico Bowman MD LAB BLOOD ORDERABLES Final Resu lt [facility] [address] [place] [address], * (ABNORMAL) Complete blood count (07/16/2024 5:08 AM EST) WBC 6.9 4.8 - 10.8 K/mcL LAB HEMETOLOGY METHOD 07/16/2024 10:32 AM [facility] RBC 3.50(L) 3.80 - 4.80 M/mcL LAB HEMETOLOGY METHOD 07/16/2024 10:32 AM [facility] Hemoglobin 10.6(L) 11.5 - 16.0 g/dL LAB HEMETOLOGY METHOD 07/16/2024 10:32 AM [facility] LAB Hematocrit 34.3(L) 35.0 - 47.0 % LAB HEMETOLOGY METHOD 07/16/2024 10:32 AM [facility] LAB MCV 99.1(H) 79.0 - 98.0 FL LAB HEMETOLOGY METHOD 07/16/2024 10:32 AM [facility] LAB MCH 30.6 27.0 - 32.0 pcg LAB HEMETOLOGY METHOD 07/16/2024 10:32 AM [facility] LAB MCHC 30.9(L) 32.0 - 37.0 g/dL LAB HEMETOLOGY METHOD 07/16/2024 10:32 AM EST [facility] RDW 14.1 11.0 - 15.0 [...] % LAB HEMETOLOGY METHOD 07/16/2024 10:32 AM [facility] LAB NRBC Absolute 0.00 <0.10 K/mcL LAB HEMETOLOGY METHOD 07/16/2024 10:32 AM [facility] LAB Blood Venous blood specimen / Unknown Venipuncture / Unknown 07/16/2024 5:08 AM EST 07/16/2024 10:12 AM EST us Federico Bowman MD LAB BLOOD ORDERABLES Final Resu lt [facility] [address] [place] [address], documented in this encounter Visit Diagnoses Diagnosis Essential (primary) hypertension Unspecified essential hypertension documented in this encounter Care Teams Tobacco Scrap Sifter Relationship Specialty Start Date End Date Federico Bowman MD [address] [place] [address] PCP - General Internal Medicine 07/04/24 documented as of this encounter
--- OUTSIDE RECORDS SUMMARY | 2025-06-04 15:42 | XMS_ITS | Encounter Summary ---
Author Organization [facility] Address [address] [place] [address] Care Team Providers Care Administrative Job Titles Name Role Phone Federico Bowman MD Primary Care Provider [phone] Encounter Details Date Type Department Care Team (Late st Contact Info) Description 07/11/2024 Lab Requisition [facility] - Main Lab [address] [facility] [place] [place] [address] Federico Bowman MD [address] [place] [address] Essential (primary) hypertension Social History [...] LAB CHEMISTRY METHOD 07/12/2024 9:45 AM EST [facility] LAB Potassium 4.3 3.5 - 5.5 mmol/L LAB CHEMISTRY METHOD 07/12/2024 9:45 AM EST [facility] LAB Chloride 108 96 - 110 mmol/L LAB CHEMISTRY METHOD 07/12/2024 9:45 AM [facility] LAB CO2 29 21 - 32 mmol/L LAB CHEMISTRY METHOD 07/12/2024 9:45 AM [facility] LAB Anion Gap 5 3 - 11 LAB CHEMISTRY METHOD 07/12/2024 9:45 AM [facility] LAB Glucose 72 70 - 100 mg/dL LAB CHEMISTRY METHOD 07/12/2024 9:45 AM [facility] LAB BUN 12 5 - 25 mg/dL LAB CHEMISTRY METHOD 07/12/2024 9:45 AM [facility] LAB Creatinine 0.93 0.50 - 1.10 mg/dL LAB CHEMISTRY METHOD 07/12/2024 9:45 AM [facility] LAB eGFR 61 >=60 mL/min/1. 73m2 LAB CHEMISTRY METHOD 07/12/2024 9:45 AM [facility] LAB Comment:Calculation based on the Chronic Kidney Disease Epidemiology Collaboration (CKD-EPI) equation refit without adjustment for race. BUN/Creatinine Ratio 12.9 LAB CHEMISTRY METHOD 07/12/2024 9:45 AM [facility] LAB Calcium 9.1 8.5 - 10.5 mg/dL LAB CHEMISTRY METHOD 07/12/2024 9:45 AM [facility] LAB Blood Venous blood specimen / Unknown 07/12/2024 5:10 AM EST 07/12/2024 9:10 AM EST us Federico Bowman MD LAB BLOOD ORDERABLES Final Resu lt [facility] [address] [place] [address], * (ABNORMAL) Complete blood count (07/12/2024 5:10 AM EST) WBC 5.6 4.8 - 10.8 K/mcL LAB HEMETOLOGY METHOD 07/12/2024 9:22 AM [facility] RBC 3.80 3.80 - 4.80 M/mcL LAB HEMETOLOGY METHOD 07/12/2024 9:22 AM [facility] LAB Hemoglobin 11.5 11.5 - 16.0 g/dL LAB HEMETOLOGY METHOD 07/12/2024 9:22 AM [facility] LAB Hematocrit 37.1 35.0 - 47.0 % LAB HEMETOLOGY METHOD 07/12/2024 9:22 AM [facility] LAB MCV 97.9 79.0 - 98.0 FL LAB HEMETOLOGY METHOD 07/12/2024 9:22 AM [facility] LAB MCH 30.3 27.0 - 32.0 pcg LAB HEMETOLOGY METHOD 07/12/2024 9:22 AM [facility] LAB MCHC 31.0(L) 32.0 - 37.0 g/dL LAB HEMETOLOGY METHOD 07/12/2024 9:22 AM [facility] LAB RDW 13.8 11.0 - 15.0 % LAB HEMETOLOGY METHOD 07/12/2024 9:22 AM [facility] Platelets 313 130 - 400 K/mcL LAB HEMETOLOGY METHOD 07/12/2024 9:22 AM [facility] LAB MPV 10.2 7.0 - 11.0 FL LAB HEMETOLOGY METHOD 07/12/2024 9:22 AM [facility] LAB NRBC 0.0 <1.0 % LAB HEMETOLOGY METHOD 07/12/2024 9:22 AM [facility] LAB NRBC Absolute 0.00 <0.10 K/mcL LAB HEMETOLOGY METHOD 07/12/2024 9:22 AM [facility] LAB Blood Venous blood specimen / Unknown 07/12/2024 5:10 AM EST 07/12/2024 9:11 AM EST Federico Bowman MD LAB BLOOD ORDERABLES Final Resu lt [facility] ([facility]) [facility] [address] [place] [address], documented in this encounter Visit Diagnoses Diagnosis Essential (primary) hypertension Unspecified essential hypertension documented in this encounter Care Teams Administrative Job Titles Relationship Specialty Start Date End Date Federico Bowman MD [address] [place] [address] PCP - General Internal Medicine 07/04/24 documented as of this encounter
--- OUTSIDE RECORDS SUMMARY | 2025-06-04 15:42 | XMS_ITS | Encounter Summary ---
Author Organization [facility] Address [address] [place] [address] Phone Care Team Providers Care Tissue Recovery Technician Name Role Phone Conrado Hampton MD Primary Care Provider Pcp, Unknown Primary Care Provider Unavailabl e Encounter Details Date Type Department Care Team (Late st Contact Info) Description 02/21/2018 Procedure [facility], [address] [address] Social History Tobacco Use Types Packs/Day Years [...] on filedocumented in this encounter Care Teams Tissue Recovery Technician Relationship Specialty Start Date End Date Conrado Hampton MD [address] [place] [address] Drive [address] [place] [address] PCP - General Pulmonary Disease 12/12/17 01/24/20 Pcp, Unknown PCP - General 01/25/20 documented as of this encounter Additional Source Comments The information contained in this document represents components of the legal health record. It is not the complete legal health record.[facility]
--- OUTSIDE RECORDS SUMMARY | 2025-06-04 15:42 | XMS_ITS | Encounter Summary ---
Author Organization [facility] Address [address] [place] [address] Phone Care Team Providers Care Mercerizer Name Role Phone Pcp, Unknown Primary Care Provider Unavailabl e Encounter Details Date Type Department Care Team (Latest Contact Info) Description 04/14/2020 Transcribe Orders [facility] Phleb [place] [place] [address] Robert Darling, [address] [place] [address] Symptomatic menopausal or female climacteric states (Primary [...] EDT) PREGNENOLONE 149 33 - 248 NG/DL [facility] MED/PATH SUPERIOR Comment: (NOTE) ADDITIONAL INFORMATION This test was developed and its performance characteristics determined by [facility] in a manner consistent with CLIA requirements. This test has not been cleared or approved by the U.S. Food and Drug Administration. Blood 04/14/2020 3:07 PM EDT 04/14/2020 3:14 PM EDT [facility] LAB BLOOD ORDERABLES Final Resu lt Performing Organization Address [facility] de Phone Number [facility] LAB MED/PATH [address] [address] * Sex hormone binding globulin (04/14/2020 3:07 PM EDT) SEX HORMONE BIND GLOB 60 nmol/L [facility] LAB MED/PATH SUPERIOR Comment: (NOTE) REFERENCE VALUE [phone] (non-) Blood 04/14/2020 3:07 PM EDT 04/14/2020 3:14 PM EDT [facility] LAB BLOOD ORDERABLES Final Resu lt Performing Organization Address [facility] de Phone Number [facility] LAB MED/PATH [address] [address] * (ABNORMAL) DHEA-SULFATE (04/14/2020 3:07 PM EDT) DHEAS 241(H) 5.3 - 124 mcg/dL [facility] LAB MED/PATH SUPERIOR Blood 04/14/2020 3:07 PM EDT 04/14/2020 3:14 PM EDT [facility] LAB BLOOD ORDERABLES Final Resu lt Performing Organization Address [facility] de Phone Number [facility] LAB MED/PATH [address] [address] * (ABNORMAL) 25-OH vitamin D (04/14/2020 3:07 PM EDT) 25 OH VIT D (TOTAL) 74(H) 30 - 60 ng/mL [facility] Blood 04/14/2020 3:07 PM EDT 04/14/2020 3:15 PM EDT [facility] BLOOD BKR ORDERABLES Final Result Performing Organization Address [facility] Co de Phone Number [facility] [address] [place] [address] * Testosterone, total and free (04/14/2020 3:07 PM EDT) [facility] FREE TESTOSTERONE 0.43 0.06 - 0.76 ng/dL [facility] LAB MED/PATH SUPERIOR Comment: (NOTE) ADDITIONAL INFORMATION Testing performed by [facility]. This test was developed and its performance characteristics determined by [facility] in a manner consistent with CLIA requirements. This test has not been cleared or approved by the U.S. Food and Drug Administration. TESTOSTERONE, TOTAL 31 8 - 60 ng/dL [facility] LAB MED/PATH SUPERIOR Comment: (NOTE) ADDITIONAL INFORMATION Testing performed by Liquid Chromatography-Tandem Mass Spectrometry (LC-MS/MS). This test was developed and its performance characteristics determined by [facility] in a manner consistent with CLIA requirements. This test has not been cleared or approved by the U.S. Food and Drug Administration. Blood 04/14/2020 3:07 PM EDT 04/14/2020 3:14 PM EDT [facility] LAB BLOOD BKR ORDERABLES Final Result Performing Organization Address [facility]/ZIP Co de Phone Number [facility] LAB MED/PATH SUPERIOR [address] [place] [address] * Progesterone (04/14/2020 3:07 PM EDT) PROGESTERONE 1.56 ng/mL [facility] Comment: FEMALE: Follicular: 0.057 - 0.893 ng/ml Luteal: 1.83 - 23.9 ng/ml Blood 04/14/2020 3:07 PM EDT 04/14/2020 3:15 PM EDT [facility] LAB BLOOD BKR ORDERABLES Final Result Performing Organization Address [facility] Co de Phone Number [address] [address] * Estradiol (04/14/2020 3:07 PM EDT) ESTRADIOL 44 pg/mL [facility] Comment: FEMALE: Follicular: Less than 12 to 233 pg/ml Midcycle: 41 - 398 pg/ml Luteal: 22 - 341 pg/ml Postmenopausal: less than 5 - 138 pg/ml Blood 04/14/2020 3:07 PM EDT 04/14/2020 3:15 PM EDT [facility] LAB BLOOD BKR ORDERABLES Final Result Performing Organization Address [facility] Co de Phone Number [address] [address] documented in this encounter Visit Diagnoses Diagnosis Symptomatic menopausal or female climacteric states- Primary Essential hypertension, benign Asthmatic bronchitis without complication, unspecified asthma severity, unspecified whether persistent Glaucoma, unspecified glaucoma type, unspecified laterality Avitaminosis D Unspecified vitamin D deficiency documented in this encounter Care Teams Mercerizer Relationship Specialty Start Date End Date Pcp, Unknown PCP - General 01/25/20 documented as of this encounter Additional Source Comments The information contained in this document represents components of the legal health record. It is not the complete legal health record.[facility]
--- OUTSIDE RECORDS SUMMARY | 2025-06-04 15:42 | XMS_ITS | Encounter Summary ---
Author Organization [facility] Address [address] [place] [address] Care Team Providers Care Finish Cleaner Name Role Phone Federico Bowman MD Primary Care Provider [phone] Encounter Details Date Type Department Care Team (Late st Contact Info) Description 07/08/2024 Lab Requisition [facility] - Main Lab [address] [facility] [place] [address] Federico Bowman MD [address] [place] [address] Essential (primary) hypertension Social History [...] LAB HEMETOLOGY METHOD 07/09/2024 9:54 AM EST [facility] LAB RBC 4.20 3.80 - 4.80 M/mcL LAB HEMETOLOGY METHOD 07/09/2024 9:54 AM EST [facility] LAB Hemoglobin 12.7 11.5 - 16.0 g/dL LAB HEMETOLOGY METHOD 07/09/2024 9:54 AM EST [facility] LAB Hematocrit 41.7 35.0 - 47.0 % LAB HEMETOLOGY METHOD 07/09/2024 9:54 AM [facility] LAB MCV 100.2(H) 79.0 - 98.0 FL LAB HEMETOLOGY METHOD 07/09/2024 9:54 AM [facility] LAB MCH 30.5 27.0 - 32.0 pcg LAB HEMETOLOGY METHOD 07/09/2024 9:54 AM EST [facility] LAB MCHC 30.5(L) 32.0 - 37.0 g/dL LAB HEMETOLOGY METHOD 07/09/2024 9:54 AM [facility] LAB RDW 13.9 11.0 - 15.0 % LAB HEMETOLOGY METHOD 07/09/2024 9:54 AM [facility] LAB Platelets 406(H) 130 - 400 K/mcL LAB HEMETOLOGY METHOD 07/09/2024 9:54 AM EST [facility] LAB MPV 10.5 7.0 - 11.0 FL LAB HEMETOLOGY METHOD 07/09/2024 9:54 AM [facility] LAB NRBC 0.0 <1.0 % LAB HEMETOLOGY METHOD 07/09/2024 9:54 AM [facility] LAB NRBC Absolute 0.00 <0.10 K/mcL LAB HEMETOLOGY METHOD 07/09/2024 9:54 AM [facility] LAB Blood Venous blood specimen / Unknown Venipuncture / Unknown 07/09/2024 4:55 AM EST 07/09/2024 9:16 AM EST us Federico Bowman MD LAB BLOOD ORDERABLES Final Resu lt [facility] LAB [address] [place] [address], documented in this encounter Visit Diagnoses Diagnosis Essential (primary) hypertension Unspecified essential hypertension documented in this encounter Care Teams Finish Cleaner Relationship Specialty Start Date End Date Federico Bowman MD [address] [place] [address] PCP - General Internal Medicine 07/04/24 documented as of this encounter
--- OUTSIDE RECORDS SUMMARY | 2025-06-04 15:43 | XMS_ITS | Encounter Summary ---
Author Organization [facility] Address [address] [place] [address] Care Team Providers Care Glue Cook Name Role Phone Federico Bowman MD Primary Care Provider [phone] Encounter Details Date Type Department Care Team (Late st Contact Info) Description 06/29/2024 Lab Requisition [facility] - Main Lab [address] [facility] [place] [address] Federico Bowman MD [address] [place] [address] Essential (primary) hypertension Social [...] LAB CHEMISTRY METHOD 07/02/2024 9:07 AM EST [facility] LAB Potassium 4.7 3.5 - 5.5 mmol/L LAB CHEMISTRY METHOD 07/02/2024 9:07 AM EST [facility] LAB Chloride 109 96 - 110 mmol/L LAB CHEMISTRY METHOD 07/02/2024 9:07 AM [facility] LAB CO2 27 21 - 32 mmol/L LAB CHEMISTRY METHOD 07/02/2024 9:07 AM [facility] LAB Anion Gap 7 3 - 11 LAB CHEMISTRY METHOD 07/02/2024 9:07 AM [facility] LAB Glucose 81 70 - 100 mg/dL LAB CHEMISTRY METHOD 07/02/2024 9:07 AM [facility] LAB BUN 14 5 - 25 mg/dL LAB CHEMISTRY METHOD 07/02/2024 9:07 AM [facility] LAB Creatinine 0.82 0.50 - 1.10 mg/dL LAB CHEMISTRY METHOD 07/02/2024 9:07 AM [facility] LAB eGFR 71 >=60 mL/min/1. 73m2 LAB CHEMISTRY METHOD 07/02/2024 9:07 AM [facility] LAB Comment:Calculation based on the Chronic Kidney Disease Epidemiology Collaboration (CKD-EPI) equation refit without adjustment for race. BUN/Creatinine Ratio 17.1 LAB CHEMISTRY METHOD 07/02/2024 9:07 AM [facility] LAB Calcium 8.8 8.5 - 10.5 mg/dL LAB CHEMISTRY METHOD 07/02/2024 9:07 AM [facility] LAB AST (SGOT) 15 10 - 42 unit/L LAB CHEMISTRY METHOD 07/02/2024 9:07 AM [facility] LAB ALT (SGPT) 14 10 - 60 unit/L LAB CHEMISTRY METHOD 07/02/2024 9:07 AM [facility] LAB Alkaline Phosphatase 109 42 - 121 unit/L LAB CHEMISTRY METHOD 07/02/2024 9:07 AM [facility] LAB Total Protein 5.4(L) 6.0 - 8.0 g/dL LAB CHEMISTRY METHOD 07/02/2024 9:07 AM [facility] LAB Albumin 2.8(L) 3.2 - 5.0 g/dL LAB CHEMISTRY METHOD 07/02/2024 9:07 AM [facility] LAB Total Bilirubin 0.5 0.0 - 1.4 mg/dL LAB CHEMISTRY METHOD 07/02/2024 9:07 AM [facility] LAB Blood Venous blood specimen / Unknown Venipuncture / Unknown 07/02/2024 5:02 AM EST 07/02/2024 8:22 AM EST us Federico Bowman MD LAB BLOOD ORDERABLES Final Resu lt [facility] [address] [place] [address], * (ABNORMAL) Complete blood count (07/02/2024 5:02 AM EST) WBC 7.2 4.8 - 10.8 K/mcL LAB HEMETOLOGY METHOD 07/02/2024 8:43 AM [facility] LAB RBC 3.80 3.80 - 4.80 M/mcL LAB HEMETOLOGY METHOD 07/02/2024 8:43 AM [facility] LAB Hemoglobin 11.7 11.5 - 16.0 g/dL LAB HEMETOLOGY METHOD 07/02/2024 8:43 AM [facility] LAB Hematocrit 37.5 35.0 - 47.0 % LAB HEMETOLOGY METHOD 07/02/2024 8:43 AM [facility] LAB MCV 98.2(H) 79.0 - 98.0 FL LAB HEMETOLOGY METHOD 07/02/2024 8:43 AM [facility] LAB MCH 30.6 27.0 - 32.0 pcg LAB HEMETOLOGY METHOD 07/02/2024 8:43 AM [facility] LAB MCHC 31.2(L) 32.0 - 37.0 g/dL LAB HEMETOLOGY METHOD 07/02/2024 8:43 AM [facility] LAB RDW 13.5 11.0 - 15.0 % LAB HEMETOLOGY METHOD 07/02/2024 8:43 AM EST [facility] LAB Platelets 358 130 - 400 K/mcL LAB HEMETOLOGY METHOD 07/02/2024 8:43 AM EST [facility] LAB MPV 10.8 7.0 - 11.0 FL LAB HEMETOLOGY METHOD 07/02/2024 8:43 AM EST [facility] LAB NRBC 0.0 <1.0 % LAB HEMETOLOGY METHOD 07/02/2024 8:43 AM EST [facility] LAB NRBC Absolute 0.00 <0.10 K/mcL LAB HEMETOLOGY METHOD 07/02/2024 8:43 AM EST [facility] LAB Blood Venous blood specimen / Unknown Venipuncture / Unknown 07/02/2024 5:02 AM EST 07/02/2024 8:20 AM EST us Federico Bowman MD LAB BLOOD ORDERABLES Final Resu lt [facility] LAB [address] [place] [address], documented in this encounter Visit Diagnoses Diagnosis Essential (primary) hypertension Unspecified essential hypertension documented in this encounter Care Teams Glue Cook Relationship Specialty Start Date End Date Federico Bowman MD [address] [place] [address] PCP - General Internal Medicine 07/04/24 documented as of this encounter
--- OUTSIDE RECORDS SUMMARY | 2025-06-04 15:43 | XMS_ITS | Encounter Summary ---
Author Organization [facility] Address [address] [place] [address] Care Team Providers Care Chief Catalyst Operator Name Role Phone Federico Bowman MD Primary Care Provider [phone] Encounter Details Date Type Department Care Team (Late st Contact Info) Description 07/04/2024 Lab Requisition [facility] - Main Lab [address] [facility] [place] [address] Federico Bowman MD [address] [place] [address] Essential (primary) hypertension Social History [...] LAB CHEMISTRY METHOD 07/05/2024 8:56 AM EST [facility] LAB Potassium 4.6 3.5 - 5.5 mmol/L LAB CHEMISTRY METHOD 07/05/2024 8:56 AM EST [facility] LAB Chloride 108 96 - 110 [...] [facility] Comment:Calculation based on the [...] Resu lt [facility] LAB [address] [place] [address], * (ABNORMAL) Complete blood count (07/05/2024 4:57 AM EST) WBC 6.9 4.8 - 10.8 K/mcL LAB HEMETOLOGY METHOD 07/05/2024 8:31 AM [facility] LAB RBC 3.80 3.80 - [...] MD LAB BLOOD ORDERABLES Final Resu lt [facility] ([facility] LAB [address] [place] [address], documented in this encounter Visit Diagnoses Diagnosis Essential (primary) hypertension Unspecified essential hypertension documented in this encounter Care Teams Chief Catalyst Operator Relationship Specialty Start Date End Date Federico Bowman MD [address] [place] [address] PCP - General Internal Medicine 07/04/24 documented as of this encounter
--- OUTSIDE RECORDS SUMMARY | 2025-06-04 15:43 | XMS_ITS | Encounter Summary ---
Author Organization [facility] Address [address] [address] Phone Care Team Providers Care Gravel Wheeler Name Role Phone Conrado Hampton MD Primary Care Provider Pcp, Unknown Primary Care Provider Unavailabl e Encounter Details Date Type Department Care Team (Latest Contact Info) Description 12/12/2017 Transcribe Orders [facility] Phleb [address] [place] [address] Anish Garrido MD [address] [place] [address] Symptomatic menopausal or female climacteric states (Primary [...] (12/12/2017 10:50 AM EDT) PROGESTERONE 1.50 ng/mL [facility] Comment: FEMALE: Follicular: 0.057 - 0.893 ng/ml Luteal: 1.83 - 23.9 ng/ml Blood 12/12/2017 10:5 0 AM EDT 12/12/2017 10:54 AM EDT us Anish Garrido MD LAB BLOOD BKR ORDERABLE S Final Result [facility] [address] [place] [address] * (ABNORMAL) Testosterone, total and free (12/12/2017 10:50 AM EDT) FREE TESTOSTERONE 1.03(H) 0.06 - 0.79 ng/dL [facility] LAB MED/PATH SUPERIOR Comment: (NOTE) ADDITIONAL INFORMATION Testing performed by [facility]. This test was developed and its performance characteristics determined by [facility] in a manner consistent with CLIA requirements. This test has not been cleared or approved by the U.S. Food and Drug Administration. TESTOSTERONE, TOTAL 103(H) 8 - 60 ng/dL [facility] LAB MED/PATH [facility]PERIOR [place] Comment: (NOTE) ADDITIONAL INFORMATION Testing performed by Liquid Chromatography-Tandem Mass Spectrometry (LC-MS/MS). This test was developed and its performance characteristics determined by [facility] in a manner consistent with CLIA requirements. This test has not been cleared or approved by the U.S. Food and Drug Administration. Blood 12/12/2017 10:5 0 AM EDT 12/12/2017 10:54 AM EDT us Anish Garrido MD LAB BLOOD BKR ORDERABLE S Final Result [facility] LAB MED/PATH SUPERIOR [address] [place] [address] * Estradiol (12/12/2017 10:50 AM EDT) ESTRADIOL 65 pg/mL [facility] Comment: FEMALE: Follicular: Less than 12 to 233 pg/ml Midcycle: 41 - 398 pg/ml Luteal: 22 - 341 pg/ml Postmenopausal: less than 5 - 138 pg/ml Blood 12/12/2017 10:5 0 AM EDT 12/12/2017 10:54 AM EDT us Anish Garirdo MD LAB BLOOD BKR ORDERABLE S Final Result [facility] [address] [place] [address] * (ABNORMAL) DHEA-Sulfate (12/12/2017 10:50 AM EDT) DHEAS 335(H) <15 - 157 mcg/dL [facility]/PATH [facility]PERIOR Blood 12/12/2017 10:5 0 AM EDT 12/12/2017 10:54 AM EDT Anish Garrido MD LAB BLOOD ORDERABLES Fi nal Result Performing Organization Address City/[facility]/ZIP Co de Phone Number 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 It is not the complete legal health record.[facility]
--- OUTSIDE RECORDS SUMMARY | 2025-06-04 15:43 | XMS_ITS | Encounter Summary ---
Author Organization [facility] Address [address] [place] [address] Care Team Providers Care Supervisor Stage Carpentry Name Role Phone Federico Bowman MD Primary Care Provider [phone] Encounter Details Date Type Department Care Team (Late st Contact Info) Description 07/21/2024 Lab Requisition [facility] - Main Lab [address] [facility] [email or web address] [address] Federico Bowman MD [address] [place] [address] Essential (primary) hypertension Social History [...] LAB CHEMISTRY METHOD 07/23/2024 10:19 AM EST [facility] LAB Potassium 4.4 3.5 - 5.5 mmol/L LAB CHEMISTRY METHOD 07/23/2024 10:19 AM EST [facility] LAB Chloride 110 96 - 110 mmol/L LAB CHEMISTRY METHOD 07/23/2024 10:19 AM [facility] LAB CO2 29 21 - 32 mmol/L LAB CHEMISTRY METHOD 07/23/2024 10:19 AM [facility] LAB Anion Gap 4 3 - 11 LAB CHEMISTRY METHOD 07/23/2024 10:19 AM [facility] LAB Glucose 76 70 - 100 mg/dL LAB CHEMISTRY METHOD 07/23/2024 10:19 AM [facility] LAB BUN 16 5 - 25 mg/dL LAB CHEMISTRY METHOD 07/23/2024 10:19 AM [facility] LAB Creatinine 0.88 0.50 - 1.10 mg/dL LAB CHEMISTRY METHOD 07/23/2024 10:19 AM [facility] LAB eGFR 65 >=60 mL/min/1. 73m2 LAB CHEMISTRY METHOD 07/23/2024 10:19 AM [facility] LAB Comment:Calculation based on the Chronic Kidney Disease Epidemiology Collaboration (CKD-EPI) equation refit without adjustment for race. BUN/Creatinine Ratio 18.2 LAB CHEMISTRY METHOD 07/23/2024 10:19 AM [facility] LAB Calcium 9.1 8.5 - 10.5 mg/dL LAB CHEMISTRY METHOD 07/23/2024 10:19 AM [facility] LAB AST (SGOT) 12 10 - 42 unit/L LAB CHEMISTRY METHOD 07/23/2024 10:19 AM [facility] LAB ALT (SGPT) 12 10 - 60 unit/L LAB CHEMISTRY METHOD 07/23/2024 10:19 AM [facility] LAB Alkaline Phosphatase 84 42 - 121 unit/L LAB CHEMISTRY METHOD 07/23/2024 10:19 AM [facility] LAB Total Protein 5.3(L) 6.0 - 8.0 g/dL LAB CHEMISTRY METHOD 07/23/2024 10:19 AM [facility] LAB Albumin 2.7(L) 3.2 - 5.0 g/dL LAB CHEMISTRY METHOD 07/23/2024 10:19 AM [facility] LAB Total Bilirubin 0.4 0.0 - 1.4 mg/dL LAB CHEMISTRY METHOD 07/23/2024 10:19 AM [facility] LAB Blood Venous blood specimen / Unknown Venipuncture / Unknown 07/23/2024 5:10 AM EST 07/23/2024 9:38 AM EST us Federico Bowman MD LAB BLOOD ORDERABLES Final Resu lt [facility] LAB [address] [place] [address], * (ABNORMAL) Complete blood count (07/23/2024 5:10 AM EST) WBC 6.0 4.8 - 10.8 K/mcL LAB HEMETOLOGY METHOD 07/23/2024 9:52 AM [facility] LAB RBC 3.60(L) 3.80 - 4.80 M/[facility] LAB HEMETOLOGY METHOD 07/23/2024 9:52 AM [facility] LAB Hemoglobin 11.1(L) 11.5 - 16.0 g/dL LAB HEMETOLOGY METHOD 07/23/2024 9:52 AM [facility] LAB Hematocrit 36.0 35.0 - 47.0 % LAB HEMETOLOGY METHOD 07/23/2024 9:52 AM [facility] LAB MCV 99.7(H) 79.0 - 98.0 FL LAB HEMETOLOGY METHOD 07/23/2024 9:52 AM [facility] LAB MCH 30.7 27.0 - 32.0 pcg LAB HEMETOLOGY METHOD 07/23/2024 9:52 AM [facility] LAB MCHC 30.8(L) 32.0 - 37.0 g/dL LAB HEMETOLOGY METHOD 07/23/2024 9:52 AM EST [facility] LAB RDW 14.4 11.0 - 15.0 % LAB HEMETOLOGY METHOD 07/23/2024 9:52 AM EST [facility] LAB Platelets 321 130 - 400 K/mcL LAB HEMETOLOGY METHOD 07/23/2024 9:52 AM [facility] LAB MPV 10.5 7.0 - 11.0 FL LAB HEMETOLOGY METHOD 07/23/2024 9:52 AM EST [facility] LAB NRBC 0.0 <1.0 % LAB HEMETOLOGY METHOD 07/23/2024 9:52 AM [facility] LAB NRBC Absolute 0.00 <0.10 K/mcL LAB HEMETOLOGY METHOD 07/23/2024 9:52 AM [facility] LAB Blood Venous blood specimen / Unknown Venipuncture / Unknown 07/23/2024 5:10 AM EST 07/23/2024 9:33 AM EST us Federico Bowman MD LAB BLOOD ORDERABLES Final Resu lt [facility] LAB [address] [place] [address], documented in this encounter Visit Diagnoses Diagnosis Essential (primary) hypertension Unspecified essential hypertension documented in this encounter Care Teams Supervisor Stage Carpentry Relationship Specialty Start Date End Date Federico Bowman MD [address] [place] [phone] PCP - General Internal Medicine 07/04/24 documented as of this encounter
--- OUTSIDE RECORDS SUMMARY | 2025-06-04 15:43 | XMS_ITS | Clinical Summary ---
Author Organization [facility] Address [address] [place] [address] Phone Care Team Providers Care Highway Design Engineer Name Role Phone Pcp, Unknown Primary Care [...] file Insurance MEDICARE PART A & B [facility] MEDICARE SUPPLEMENT MEDICARE PART A & B [employer] MEDICARE SUPPLEMENT MEDICARE PART A & B Member Subscriber Plan / Payer ( fective 2005-) Name:Yumiko Pearce Member ID:[id number] Relation to Subscriber:Self Name:Yumiko Pearce Subscriber ID:[id number] Payer ID:[id number] Group ID:Not on file Type:Medicare Address: [place] [address] [employer] MEDICARE SUPPLEMENT MEDICARE PART A & B [facility] EX[employer]ION MEDICARE SUPPLEMENT MEDICARE PART A & B [facility] EXTENSION MEDICARE SUPPLEMENT MEDICARE PART A & B Member Subscriber Plan / Payer (Ef fective 2005-Present) Name:Yumiok Pearce Member ID:[id number] Relation to Subscriber:Self Name:Yumiko Pearce Subscriber ID:[id number] Payer ID:[id number] Group ID:Not on file Type:Medicare Address: [place] [address] [facility] EXTENSION MEDICARE SUPPLEMENT MEDICARE PART A & B [employer] MEDICARE SUPPLEMENT MEDICARE PART A & B [employer] [place] [phone] MEDICARE PART A & B [facility] [employer]ION MEDICARE SUPPLEMENT Care Teams Highway Design Engineer Relationship Specialty Start Date End Date Pcp, Unknown PCP - General 01/25/20 Additional Source Comments The information contained in this document represents components of the legal health record. It is not the complete legal health record.[facility]
--- OUTSIDE RECORDS SUMMARY | 2025-06-04 15:43 | XMS_ITS | Encounter Summary ---
Author Organization [facility] Address [address] [place] [address] Care Team Providers Care Guest Relations Executive Name Role Phone Federico Bowman MD Primary Care Provider [phone] Encounter Details Date Type Department Care Team (Late st Contact Info) Description 06/27/2024 Lab Requisition [facility] - Main Lab [address] [place] [address] Federico Bowman MD [address] [place] [address] Essential (primary) hypertension Social History [...] LAB CHEMISTRY METHOD 06/27/2024 2:43 PM EST [facility] Potassium 4.9 3.5 - 5.5 mmol/L LAB CHEMISTRY METHOD 06/27/2024 2:43 PM EST [facility] Chloride 108 96 - 110 mmol/L LAB CHEMISTRY METHOD 06/27/2024 2:43 PM [facility] CO2 26 21 - 32 mmol/L LAB CHEMISTRY METHOD 06/27/2024 2:43 PM [facility] Anion Gap 7 3 - 11 LAB CHEMISTRY METHOD 06/27/2024 2:43 PM [facility] Glucose 69(L) 70 - 100 mg/dL LAB CHEMISTRY METHOD 06/27/2024 2:43 PM [facility] BUN 16 5 - 25 mg/dL LAB CHEMISTRY METHOD 06/27/2024 2:43 PM [facility] Creatinine 0.86 0.50 - 1.10 mg/dL LAB CHEMISTRY METHOD 06/27/2024 2:43 PM [facility] eGFR 67 >=60 mL/min/1. 73m2 LAB CHEMISTRY METHOD 06/27/2024 2:43 PM [facility] Comment:Calculation based on the Chronic Kidney Disease Epidemiology Collaboration (CKD-EPI) equation refit without adjustment for race. BUN/Creatinine Ratio 18.6 LAB CHEMISTRY METHOD 06/27/2024 2:43 PM [facility] Calcium 8.7 8.5 - 10.5 mg/dL LAB CHEMISTRY METHOD 06/27/2024 2:43 PM [facility] AST (SGOT) 15 10 - 42 unit/L LAB CHEMISTRY METHOD 06/27/2024 2:43 PM [facility] ALT (SGPT) 14 10 - 60 unit/L LAB CHEMISTRY METHOD 06/27/2024 2:43 PM [facility] Alkaline Phosphatase 95 42 - 121 unit/L LAB CHEMISTRY METHOD 06/27/2024 2:43 PM [facility] Total Protein 5.8(L) 6.0 - 8.0 g/dL LAB CHEMISTRY METHOD 06/27/2024 2:43 PM [facility] Albumin 3.0(L) 3.2 - 5.0 g/dL LAB CHEMISTRY METHOD 06/27/2024 2:43 PM [facility] Total Bilirubin 0.8 0.0 - 1.4 mg/dL LAB CHEMISTRY METHOD 06/27/2024 2:43 PM [facility] Blood Venous blood specimen / Unknown Venipuncture / Unknown 06/27/2024 4:48 AM EST 06/27/2024 10:29 AM EST us Federico Bowman MD LAB BLOOD ORDERABLES Final Resu lt [facility] [address] [place] [address], * (ABNORMAL) Complete blood count (06/27/2024 4:48 AM EST) WBC 7.4 4.8 - 10.8 K/mcL LAB HEMETOLOGY METHOD 06/27/2024 10:39 AM [facility] RBC 4.10 3.80 - 4.80 [facility] LAB HEMETOLOGY METHOD 06/27/2024 10:39 AM [facility] Hemoglobin 12.5 11.5 - 16.0 g/dL LAB HEMETOLOGY METHOD 06/27/2024 10:39 AM [facility] Hematocrit 40.1 35.0 - 47.0 % LAB HEMETOLOGY METHOD 06/27/2024 10:39 AM [facility] MCV 98.0 79.0 - 98.0 FL LAB HEMETOLOGY METHOD 06/27/2024 10:39 AM [facility] MCH 30.6 27.0 - 32.0 pcg LAB HEMETOLOGY METHOD 06/27/2024 10:39 AM [facility] MCHC 31.2(L) 32.0 - 37.0 g/dL LAB HEMETOLOGY METHOD 06/27/2024 10:39 AM [facility] RDW 13.7 11.0 - 15.0 % LAB HEMETOLOGY METHOD 06/27/2024 10:39 AM EST [facility] Platelets 371 130 - 400 K/mcL LAB HEMETOLOGY METHOD 06/27/2024 10:39 AM EST [facility] MPV 11.3(H) 7.0 - 11.0 FL LAB HEMETOLOGY METHOD 06/27/2024 10:39 AM EST [facility] NRBC 0.0 <1.0 % LAB HEMETOLOGY METHOD 06/27/2024 10:39 AM EST [facility] NRBC Absolute 0.00 <0.10 K/mcL LAB HEMETOLOGY METHOD 06/27/2024 10:39 AM [facility] Blood Venous blood specimen / Unknown Venipuncture / Unknown 06/27/2024 4:48 AM EST 06/27/2024 10:29 AM EST us Federico Bowman MD LAB BLOOD ORDERABLES Final Resu lt [facility] [address] [place] [address], documented in this encounter Visit Diagnoses Diagnosis Essential (primary) hypertension Unspecified essential hypertension documented in this encounter Care Teams Guest Relations Executive Relationship Specialty Start Date End Date Federico Bowman MD [address] [place] [address] PCP - General Internal Medicine 07/04/24 documented as of this encounter
--- OUTSIDE RECORDS SUMMARY | 2025-06-04 15:43 | XMS_ITS | Patient Health Record ---
[facility] Organization [facility] Address [address] [place] [address] Care Team Providers Care Machine Applicator Cementer Name Role Phone Boubacar Delarosa MD Primary Care Provider Concepción Law Unavailable [phone] Allergies Allergen (clinical drug ingredient) Drug/Non Drug [...] Problem Acquired hammer toe of right foot (4545014911846390) Other hammer toe(s) (acquired), right foot (M20.41) Active confirmed Problem Acquired hammer toe of left foot (7699702813251718) Other hammer toe(s) (acquired), left foot (M20.42) Active confirmed Problem Bilateral atherosclerosis of arteries of lower limbs (disorder) (64924711441801537 ) Unspecified atherosclerosis of moapa arteries of extremities, bilateral legs (I70.203) Active confirmed Problem Unsteady gait (67082284) Unsteady gait (R26.81) Active confirmed Problem 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) Active confirmed Problem Plantarflexion deformity of right foot (finding) (0444974823865461) Equinus contracture of right ankle (M24.571) Active confirmed Plan Of Treatment Pending Test Test Name Order Date X ray : Foot, left 3V 11/29/2018 X ray : Foot, right 3V 11/29/2018 [id number] NAIL, 6 OR MORE 04/07/2018 [id number] NAIL, 6 OR MORE 06/30/2018 [id number] SKIN LESIONS, OVER 4 04/07/20 18 [id number] SKIN LESIONS, OVER 4 06/30/20 18 Insurance Providers Payer Name Payer Address Payer Phone Subscriber Number Group Number Insured Name Patient Relationship to Insured Coverage Start Date Coverage End Date Medicare National [employer]t S[employer] [address] [place] [address] [id number] Yumiko Pearce Self - patient is the insured [employer] ([facility] [address] [place] [address] [id number] Yumiko Pearce Self - patient is the insured Medical (General) History Medical History History ICD Code Arthritis asthma Broken bones Cataracts Glaucoma High blood pressure Sciatica Back,Hip,and Knee pain Surgical History Surgery Date(Month/Year) femur 01/10/2015
--- OUTSIDE RECORDS SUMMARY | 2025-06-04 15:43 | XMS_ITS | Encounter Summary ---
Author Organization [facility] Address [address] [place] [address] Care Team Providers Care Poly Operator Name Role Phone Federico Bowman MD Primary Care Provider [phone] Encounter Details Date Type Department Care Team (Late st Contact Info) Description 07/24/2024 Lab Requisition [facility] - Main Lab [address] [facility] [place] [address] Federico Bowman MD [address] [place] [address] Essential (primary) hypertension Social History [...] 11:58 AM EST [facility] Potassium 4.3 3.5 - 5.5 mmol/L LAB CHEMISTRY METHOD 07/26/2024 11:58 AM EST [facility] Chloride [...] 73m2 LAB CHEMISTRY METHOD 07/26/2024 11:58 AM [facility] Comment:Calculation based on the [...] Resu lt [facility] [address] [place] [address], * (ABNORMAL) Complete blood count (07/26/2024 5:09 AM EST) WBC 3.6(L) 4.8 - 10.8 K/mcL LAB HEMETOLOGY METHOD 07/26/2024 11:34 AM [facility] RBC 3.50(L) 3.80 - 4.80 M/mcL LAB HEMETOLOGY METHOD 07/26/2024 11:34 AM [facility] Hemoglobin 10.8(L) 11.5 - 16.0 g/dL LAB HEMETOLOGY METHOD 07/26/2024 11:34 AM [facility] Hematocrit 34.6(L) 35.0 - 47.0 % LAB HEMETOLOGY METHOD 07/26/2024 11:34 AM [facility] MCV 98.6(H) 79.0 - 98.0 FL LAB HEMETOLOGY METHOD 07/26/2024 11:34 AM [facility] MCH 30.8 27.0 - 32.0 pcg LAB HEMETOLOGY METHOD 07/26/2024 11:34 AM [facility] MCHC 31.2(L) 32.0 - 37.0 g/dL LAB HEMETOLOGY METHOD 07/26/2024 11:34 AM [facility] RDW 14.8 11.0 - 15.0 % LAB HEMETOLOGY METHOD 07/26/2024 11:34 AM [facility] Platelets 268 130 - 400 K/mcL LAB HEMETOLOGY METHOD 07/26/2024 11:34 AM [facility] MPV 10.8 7.0 - 11.0 FL LAB HEMETOLOGY METHOD 07/26/2024 11:34 AM [facility] NRBC 0.0 <1.0 % LAB HEMETOLOGY METHOD 07/26/2024 11:34 AM [facility] NRBC Absolute 0.00 <0.10 K/mcL LAB HEMETOLOGY METHOD 07/26/2024 11:34 AM [facility] Blood Venous blood specimen / Unknown Venipuncture / Unknown 07/26/2024 5:09 AM EST 07/26/2024 11:14 AM EST Federico Bowman MD LAB BLOOD ORDERABLES Final Resu lt [facility] [address] [place] [address], documented in this encounter Visit Diagnoses Diagnosis Essential (primary) hypertension Unspecified essential hypertension documented in this encounter Care Teams Poly Operator Relationship Specialty Start Date End Date Federico Bowman MD [address] [place] [address] PCP - General Internal Medicine 07/04/24 documented as of this encounter
--- OUTSIDE RECORDS SUMMARY | 2025-06-04 15:43 | XMS_ITS | Encounter Summary ---
Author Organization [facility] Address [address] [place] [address] Phone Care Team Providers Care Accounts Receivable Coordinator Name Role Phone Conrado Hampton MD Primary Care Provider Pcp, Unknown Primary Care Provider Unavailabl e Reason for Referral * MRI/CAT Scan - Closed Specialty Diagnoses / Procedures Referred By Contac t Referred To Contact Radiology Diagnoses Low back pain radiating to both legs Left foot drop Procedures MRI Lumbar Spine Darwin eSgura DO Phone: tel: fax: [email or web address] Referral ID Status Reason Start Date Expiration Date Visits Re quested Visits Authorized [id number] Closed 02/21/2018 02/21/2019 1 1 Encounter Details Date Type Department Care Team (Late st Contact Info) Description 02/21/2018 Ancillary Orders Virtual Department [address] [place] [address] Darwin Segura DO [address] [place] [address] [email or web address] Low back pain radiating to both legs; [...] of L4 on L5 and L5 on [id number]. This appearance is suggestive of bilateral L4 [...] foot documented in this encounter Care Teams Accounts Receivable Coordinator Relationship Specialty Start Date End Date Conrado Hampton MD [address] [place] [address] [address] [place] [address] PCP - General Pulmonary Disease 12/12/17 01/24/20 Pcp, Unknown PCP - General 01/25/20 documented as of this encounter Additional Source Comments The information contained in this document represents components of the legal health record. It is not the complete legal health record.[facility]
--- OUTSIDE RECORDS SUMMARY | 2025-06-04 15:43 | XMS_ITS | Clinical Summary ---
Author Organization [address] [facility] Address [address] [place] [address] Phone Care Team Providers Care Sanitary Napkin Machine Tender Name Role Phone Federico Bowman MD Primary Care Provider [phone] Social History Tobacco Use Types Packs/Day Years [...] age to complete this topic Insurance MEDICARE [facility] [place] [place] [id number] Care Teams Sanitary [place]kin Machine Tender Relationship Specialty Start Date End Date Federico Bowman MD [address] [place] [address] PCP - General Internal Medicine 07/04/24
== END 2025-06-04 13:46 | disposition home or self-care (01) ==
LOC: HO.HPODS 13:02
PROVIDERS: Visit Provider Student in an Organized Health Care Education/Training Program
DX: M20.41 Other hammer toe(s) (acquired), right foot (principal); M20.42 Other hammer toe(s) (acquired), left foot; I87.2 Venous insufficiency (chronic) (peripheral); L60.2 Onychogryphosis; R26.9 Unspecified abnormalities of gait and mobility; G20.A1 Parkinson's disease without dyskinesia, without mention of fluctuations
CPT/HCPCS: 11721; 99203

== ENCOUNTER → 2025-06-04 13:01 | Outpatient (BNVA) | payer MEDICARE, OTHER, SELFPAY | PROVIDERS: Visit Provider Student in an Organized Health Care Education/Training Program | DX: M20.41 Other hammer toe(s) (acquired), right foot (principal); M20.42 Other hammer toe(s) (acquired), left foot; I87.2 Venous insufficiency (chronic) (peripheral); L60.2 Onychogryphosis; R26.9 Unspecified abnormalities of gait and mobility; G20.A1 Parkinson's disease without dyskinesia, without mention of fluctuations; M79.672 Pain in left foot; M79.671 Pain in right foot; B35.1 Tinea unguium | CPT/HCPCS: 11721; 99202 ==

== ENCOUNTER 2025-06-30 13:02 | Emergency (ER) | payer MEDICARE, OTHER, SELFPAY ==
--- OUTSIDE RECORDS SUMMARY | 2024-01-25 08:30 | XMS_ITS ---
Author Organization [facility] Address [address] [place] [address] Care Team Providers Care Interlocker Maintainer Name Role Phone [place] ERWIN, Boubacar Primary Care Provider Concepción Law [phone] Encounters Encounter Location Date Provider Diagnosis [facility] [address] [place] [address] 01/25/2024 Concepción Solis Plan Of Treatment No Information Progress Notes * Yumiko MARIE MDOB:09/1939 (85 yo F)Acc No.[id number]:01/25/2024 Progress Note Patient: Yumiko JANE Provider: Charlie Solis DPM :1940 A ge:83 Y S ex:Female Date:01/25/2024 Address:[address] [facility] Pcp:Boubacar Delarosa MD Subjective: * Chief Complaints: * * Medical History: Objective: * Vitals: Assessment: Plan: * Treatment: * Images: * The named appointment provid er may or may not be the originator of this progress note, and it is not deemed complete until electronically signed by the appointment provider. Sign off status: Pending * Provider: Charlie Solis DPM Date: 0 01/25/2024 Generated for Drewi amita/[place]/eTransmitting on: 08/30/2024 01:27 PM EST
--- NOTE | ~2025-06-30 | XR_ITS ---
CLINICAL HISTORY: Pain Four view right knee Comparison: DX/SR - XR KNEE 3 VIEWS BILATERAL - 01/03/25 13:59 EDT Findings: No acute fracture. No dislocation. There is osteopenia. There is severe narrowing of the lateral knee compartment without change. Probable narrowing of the patellofemoral joint common not well evaluated by this study. There are osteophytes within the lateral compartment and patellofemoral joint. There is valgus angulation of the knee. No joint effusion. No radiopaque foreign body. IMPRESSION: 1. No acute bony abnormality. 2. Severe osteoarthritis. 3. Osteopenia. This document has been electronically signed by: Mee Duff MD on 06/30/2025 15:47:38
[2025-06-30 13:10] VITALS: BP 122/63; BP 126/80; PULSE 54; PULSE 78; RESP 16; TEMP 36.5; O2SAT 95; O2SAT 97; BMI 20.7
[2025-06-30 13:19] VITALS: BP 122/63; PULSE 54; RESP 16; TEMP 36.5; O2SAT 95
--- OUTSIDE RECORDS SUMMARY | 2025-06-30 13:27 | XMS_ITS | Encounter Summary ---
Author Organization [facility] Address [address] [place] [address] Phone Care Team Providers Care Farm Equipment Mechanic Name Role Phone Pcp, Unknown Primary Care Provider Unavailabl e Encounter Details Date Type Department Care Team (Latest Contact Info) Description 04/14/2020 Transcribe Orders [facility] [address] [place] [address] Robert Darling, [address] [place] [address] Symptomatic menopausal or female climacteric states (Primary [...] EDT) PREGNENOLONE 149 33 - 248 NG/DL [facility] Comment: (NOTE) ADDITIONAL INFORMATION This test was developed and its performance characteristics determined by [facility] in a manner consistent with CLIA requirements. This test has not been cleared or approved by the U.S. Food and Drug Administration. Blood 04/14/2020 3:07 PM EDT 04/14/2020 3:14 PM EDT [facility] BLOOD ORDERABLES Final Resu lt Performing Organization Address [facility] de Phone Number [facility] MED/PATH [address] [address] * Sex hormone binding globulin (04/14/2020 3:07 PM EDT) SEX HORMONE BIND GLOB 60 nmol/L [facility] Comment: (NOTE) REFERENCE VALUE 18-144 (non-) Blood 04/14/2020 3:07 PM EDT 04/14/2020 3:14 PM EDT [facility] BLOOD ORDERABLES Final Resu lt Performing Organization Address [facility] de Phone Number [facility] MED/PATH [address] [address] * (ABNORMAL) DHEA-SULFATE (04/14/2020 3:07 PM EDT) DHEAS 241(H) 5.3 - 124 mcg/dL [facility] Blood 04/14/2020 3:07 PM EDT 04/14/2020 3:14 PM EDT [facility] BLOOD ORDERABLES Final Resu lt Performing Organization Address [facility] de Phone Number [facility] MED/PATH [address] [place] [address] * (ABNORMAL) 25-OH vitamin D (04/14/2020 3:07 PM EDT) 25 OH VIT D (TOTAL) 74(H) 30 - 60 ng/mL [facility] Blood 04/14/2020 3:07 PM EDT 04/14/2020 3:15 PM EDT [facility] BLOOD BKR ORDERABLES Final Result Performing Organization Address [facility] Co de Phone Number [facility] [address] [place] [address] * Testosterone, total and free (04/14/2020 3:07 PM EDT) [facility] FREE TESTOSTERONE 0.43 0.06 - 0.76 ng/dL [facility] Comment: (NOTE) ADDITIONAL INFORMATION Testing performed by [facility]. This test was developed and its performance characteristics determined by [facility] in a manner consistent with CLIA requirements. This test has not been cleared or approved by the U.S. Food and Drug Administration. TESTOSTERONE, TOTAL 31 8 - 60 ng/dL [facility] Comment: (NOTE) ADDITIONAL INFORMATION Testing performed by Liquid Chromatography-Tandem Mass Spectrometry (LC-MS/MS). This test was developed and its performance characteristics determined by [facility] in a manner consistent with CLIA requirements. This test has not been cleared or approved by the U.S. Food and Drug Administration. Blood 04/14/2020 3:07 PM EDT 04/14/2020 3:14 PM EDT [facility] BLOOD BKR ORDERABLES Final Result Performing Organization Address [facility]/ZIP Co de Phone Number [facility] [address] [place] [address] * Progesterone (04/14/2020 3:07 PM EDT) PROGESTERONE 1.56 ng/mL [facility] Comment: FEMALE: Follicular: 0.057 - 0.893 ng/ml Luteal: 1.83 - 23.9 ng/ml Blood 04/14/2020 3:07 PM EDT 04/14/2020 3:15 PM EDT [facility] BLOOD BKR ORDERABLES Final Result Performing Organization Address [facility] Co de Phone Number [address] [address] * Estradiol (04/14/2020 3:07 PM EDT) ESTRADIOL 44 pg/mL [facility] Comment: FEMALE: Follicular: Less than 12 to 233 pg/ml Midcycle: 41 - 398 pg/ml Luteal: 22 - 341 pg/ml Postmenopausal: less than 5 - 138 pg/ml Blood 04/14/2020 3:07 PM EDT 04/14/2020 3:15 PM EDT [facility] BLOOD BKR ORDERABLES Final Result Performing Organization Address [facility] Co de Phone Number [address] [address] documented in this encounter Visit Diagnoses Diagnosis Symptomatic menopausal or female climacteric states- Primary Essential hypertension, benign Asthmatic bronchitis without complication, unspecified asthma severity, unspecified whether persistent Glaucoma, unspecified glaucoma type, unspecified laterality Avitaminosis D Unspecified vitamin D deficiency documented in this encounter Care Teams Farm Equipment Mechanic Relationship Specialty Start Date End Date Pcp, Unknown PCP - General 01/25/20 documented as of this encounter Additional Source Comments The information contained in this document represents components of the legal health record. It is not the complete legal health record.[facility]
--- OUTSIDE RECORDS SUMMARY | 2025-06-30 13:27 | XMS_ITS | Encounter Summary ---
Author Organization [facility] Address [address] [place] [address] Phone Care Team Providers Care Nut Sorter Operator Name Role Phone Conrado Hampton MD Primary Care Provider Pcp, Unknown Primary Care Provider Unavailabl e Encounter Details Date Type Department Care Team (Late st Contact Info) Description 02/21/2018 Procedure Pass [facility], [address] [address] Social History Tobacco Use Types Packs/Day Years [...] on filedocumented in this encounter Care Teams Nut Sorter Operator Relationship Specialty Start Date End Date Conrado Hampton MD [address] [place] [address] Drive [address] [place] [address] PCP - General Pulmonary Disease 12/12/17 01/24/20 Pcp, Unknown PCP - General 01/25/20 documented as of this encounter Additional Source Comments The information contained in this document represents components of the legal health record. It is not the complete legal health record.[facility]
--- OUTSIDE RECORDS SUMMARY | 2025-06-30 13:28 | XMS_ITS ---
Author Organization [facility] Care Team Providers Care Cycling Instructor Name Role Phone Barbie Wnog Unavailable Unavailable Grace Arredondo Unavailable Unavailable Lorrie Estrella Unavailable Unavailable Chaitanay Sánchez Unavailable Unavailable Allergies and adverse reactions Code CodeSystem Substance Reaction Severity StartDate Concern Status Halothane Abnormal liver function (code- 85085725, SNOMED CT) Moderate 01/27/2015 active 7984 RXNORM Penicillin Unknown 01/15/2015 active Care Team Name Role Address Phone Organization Dates Chaitanya Princess PCP [address] [place] [address], [address], [facility] (Office): : [facility] 06/23/2024 - 06/26/2024 Barbie Wong [address] [place] [address], [address], [facility] (Office): : [facility] 06/23/2024 - 06/26/2024 Grace Arredondo [address] [place] [address], [address], [facility] (Office): : [facility] 06/23/2024 - 06/26/2024 Lorrie Estrella [address] [place] [address], [place], [address], [place] (Office): : [facility] 06/23/2024 - 06/26/2024 Immunizations Immunization Status Vaccine Details Vaccine Code CodeSystem Date Notes TB 2 Step Mantoux Skin Test cancelled tuberculin skin test; unspecified formulation 98 CVX created date: 01/28/2015 consent date: 01/28/2015 TB 2 Step Mantoux Skin Test completed tuberculin skin test; unspecified formulation lotNumber: [id number] expiry: 05/01/2016 Mfg: [employer] Given 0.1 ml Right Forearm intradermally Step 1 of Multi-step with next step required 98 CVX created date: 01/15/2015 consent date: 01/15/2015 administer ed date: 01/15/2015 Educated by on 01/15/2015 Mental Status Section Date Assessment Total Score Description 06/26/2024 BIMS 10 moderate cognit nadeen impairment CAM 0 No delirium ind icated PHQ-9 00 02/06/2015 BIMS 15 cognitively int act PHQ-9 02 minimal depress ion Insurance Providers Coverage Status Coverage Type Relationship to Subscriber Member Identifier Subscriber Identifier Group Identifier Payer Identifier and Other information 2024 Code: 1 Code System OID:2.16.84 [id number]. 3.221.5 Code System Name: Source of Payment Typology (PHDSC) Display: Medicare Translation : Code: [place] Code System: OID:2.16.84 0.1.785092. 6.255.1336 Code System Name: Insurance Type Code ([id number]) Display Name: Medicare Part A Code: SELF Code System Name: HL7 RoleCode Code System OID:2.16.840.1 .630549.5.111 Display Name: Self [id number] Root: [id number] Address: Problems Problem # Description Date of onset Resolved Date Code CodeSystem Concern Status 1 CHRONIC OBSTRUCTIVE PULMONARY DISEASE, UNSPECIFIED 06/22/[address] active 2 DIFFICULTY IN WALKING, NOT ELSEWHERE CLASSIFIED 06/22/[address] active 3 ESSENTIAL (PRIMARY) HYPERTENSION 06/22/[address] active 4 HISTORY OF FALLING 06/22/20248052369 SNOMED CT active 5 MUSCLE WASTING AND ATROPHY, NOT ELSEWHERE CLASSIFIED, MULTIPLE SITES 06/22/[address] active 6 PERSONAL HISTORY OF OTHER VENOUS THROMBOSIS AND EMBOLISM 06/22/[address] active 7 TRAUMATIC HEMORRHAGE OF CEREBRUM, UNSPECIFIED, WITHOUT LOSS OF CONSCIOUSNESS, SUBSEQUENT ENCOUNTER 06/22/[address] active 8 UNSPECIFIED PROTEIN-CALORIE MALNUTRITION 06/22/[address] active 9 ANEMIA, UNSPECIFIED 01/14/2015 06/22/[address] completed 10 CHRONIC OBSTRUCTIVE PULMONARY DISEASE, UNSPECIFIED 01/14/2015 06/22/[address] completed 11 DIFFICULTY IN WALKING, NOT ELSEWHERE CLASSIFIED 01/14/2015 06/22/[address] completed 12 ESSENTIAL (PRIMARY) HYPERTENSION 01/14/2015 06/22/[address] completed 13 GASTRO-ESOPHAGEAL REFLUX DISEASE WITHOUT ESOPHAGITIS 01/14/2015 06/22/[address] completed 14 MUSCLE WEAKNESS (GENERALIZED) 01/14/2015 06/22/[address] completed 15 PRIMARY GENERALIZED (OSTEO)ARTHRITIS 01/14/2015 06/22/[address] completed 16 HISTORY OF FALLING 01/10/2015 06/22/20243276641 SNOMED CT completed Reason for Referral No Reasons for Referral Entered Social History Social History Observation Description Start Date End Date Code Code System Current Smoking Status Tobacco smoking consumption unknown 003737822 SNOMED CT Sex Assigned At Female 1940 [address]36-6 [facility] Gender Identity Sexual Orientation Vital Signs Code Code System Vitals Name Values and Units Timing Information 60855-3 LOINC Pain Level Value=0.0 06/26/2024 9279-1 LOINC Respiratory Rate Value=16.0 Units=/m in 06/26/2024 8462-4 LOINC Blood Pressure-Diastolic Value=65 Un its=mmHg 06/26/2024 8480-6 LOINC Blood Pressure-Systolic Ljwhz=795 Un its=mmHg 06/26/2024 8310-5 [facility] Body Temperature Value=98.1 Units= F 06/26/2024 8867-4 [facility] Heart rate Value=93.0 Units=/min 15020-0 [facility] O2 % BldC Oximetry Value=94.0 Units= % 06/26/2024 86741-5 [facility] Weight Hpzsi=972.0 Units=Lbs 8302-2 [facility] Height Value=66.1 Units=Inches 06/23/2024
--- OUTSIDE RECORDS SUMMARY | 2025-06-30 13:28 | XMS_ITS | Encounter Summary ---
Author Organization [facility] Address [address] [place] [address] Phone Care Team Providers Care Healthcare Or Medical Name Role Phone Conrado Hampton MD Primary Care Provider Pcp, Unknown Primary Care Provider Unavailabl e Reason for Referral * MRI/CAT Scan - Closed Specialty Diagnoses / Procedures Referred By Contac t Referred To Contact Radiology Diagnoses Low back pain radiating to both legs Left foot drop Procedures MRI Lumbar Spine Darwin Segura DO Phone: tel: fax: mailto:[email or web address] Referral ID Status Reason Start Date Expiration Date Visits Re quested Visits Authorized [id number] Closed 02/21/2018 02/21/2019 1 1 Encounter Details Date Type Department Care Team (Late st Contact Info) Description 02/21/2018 Ancillary Orders Virtual Department [address] [place] [address] Darwin Segura DO [address] [place] [address] [email or web address] back pain radiating to both legs; [...] of L4 on L5 and L5 on U4nofgfit. This appearance is suggestive of bilateral L4 [...] foot documented in this encounter Care Teams Healthcare Or Medical Relationship Specialty Start Date End Date Conrado Hampton MD [address] [place] [address] [address] [place] [address] PCP - General Pulmonary Disease 12/12/17 01/24/20 Pcp, Unknown PCP - General 01/25/20 documented as of this encounter Additional Source Comments The information contained in this document represents components of the legal health record. It is not the complete legal health record.[facility]
--- OUTSIDE RECORDS SUMMARY | 2025-06-30 13:28 | XMS_ITS | Encounter Summary ---
Author Organization [facility] Address [address] [place] [address] Care Team Providers Care Client Architect Name Role Phone Federico Bowman MD Primary Care Provider [phone] Encounter Details Date Type Department Care Team (Late st Contact Info) Description 07/18/2024 Lab Requisition [facility] - Main Lab [address] [facility] [place] [address] Federico Bowman MD [address] [place] [address] Essential (primary) hypertension Social History [...] LAB CHEMISTRY METHOD 07/19/2024 1:05 PM EST [facility] Potassium 4.1 3.5 - 5.5 mmol/L LAB CHEMISTRY METHOD 07/19/2024 1:05 PM EST [facility] Chloride 108 96 - 110 mmol/L LAB CHEMISTRY METHOD 07/19/2024 1:05 PM [facility] CO2 30 21 - 32 mmol/L LAB CHEMISTRY METHOD 07/19/2024 1:05 PM [facility] Anion Gap 6 3 - 11 LAB CHEMISTRY METHOD 07/19/2024 1:05 PM [facility] Glucose 69(L) 70 - 100 mg/dL LAB CHEMISTRY METHOD 07/19/2024 1:05 PM [facility] BUN 16 5 - 25 mg/dL LAB CHEMISTRY METHOD 07/19/2024 1:05 PM [facility] Creatinine 0.82 0.50 - 1.10 mg/dL LAB CHEMISTRY METHOD 07/19/2024 1:05 PM [facility] eGFR 71 >=60 mL/min/1. 73m2 LAB CHEMISTRY METHOD 07/19/2024 1:05 PM [facility] Comment:Calculation based on the Chronic Kidney Disease Epidemiology Collaboration (CKD-EPI) equation refit without adjustment for race. BUN/Creatinine Ratio 19.5 LAB CHEMISTRY METHOD 07/19/2024 1:05 PM [facility] Calcium 9.1 8.5 - 10.5 mg/dL LAB CHEMISTRY METHOD 07/19/2024 1:05 PM [facility] Blood Venous blood specimen / Unknown Venipuncture / Unknown 07/19/2024 5:03 AM EST 07/19/2024 11:27 AM EST us Federico Bowman MD LAB BLOOD ORDERABLES Final Resu lt [facility] [address] [place] [address], * (ABNORMAL) Complete blood count (07/19/2024 5:03 AM EST) WBC 6.0 4.8 - 10.8 K/mcL LAB HEMETOLOGY METHOD 07/19/2024 12:41 PM [facility] RBC 4.00 3.80 - 4.80 M/mcL LAB HEMETOLOGY METHOD 07/19/2024 12:41 PM [facility] Hemoglobin 12.3 11.5 - 16.0 g/dL LAB HEMETOLOGY METHOD 07/19/2024 12:41 PM [facility] Hematocrit 40.1 35.0 - 47.0 % LAB HEMETOLOGY METHOD 07/19/2024 12:41 PM [facility] MCV 100.3(H) 79.0 - 98.0 FL LAB HEMETOLOGY METHOD 07/19/2024 12:41 PM [facility] MCH 30.8 27.0 - 32.0 pcg LAB HEMETOLOGY METHOD 07/19/2024 12:41 PM [facility] MCHC 30.7(L) 32.0 - 37.0 g/dL LAB HEMETOLOGY METHOD 07/19/2024 12:41 PM [facility] RDW 14.6 11.0 - 15.0 % LAB HEMETOLOGY METHOD 07/19/2024 12:41 PM [facility] Platelets 343 130 - 400 K/mcL LAB HEMETOLOGY METHOD 07/19/2024 12:41 PM [facility] MPV 10.4 7.0 - 11.0 FL LAB HEMETOLOGY METHOD 07/19/2024 12:41 PM [facility] NRBC 0.0 <1.0 % LAB HEMETOLOGY METHOD 07/19/2024 12:41 PM [facility] NRBC Absolute 0.00 <0.10 K/mcL LAB HEMETOLOGY METHOD 07/19/2024 12:41 PM [facility] Blood Venous blood specimen / Unknown Venipuncture / Unknown 07/19/2024 5:03 AM EST 07/19/2024 11:27 AM EST us Federico Bowman MD LAB BLOOD ORDERABLES Final [facility]u lt [facility] [address] [place] [address], documented in this encounter Visit Diagnoses Diagnosis Essential (primary) hypertension Unspecified essential hypertension documented in this encounter Care Teams Client Architect Relationship Specialty Start Date End Date Federico Bowman MD [address] [place] [address] PCP - General Internal Medicine 07/04/24 documented as of this encounter
--- OUTSIDE RECORDS SUMMARY | 2025-06-30 13:28 | XMS_ITS | Encounter Summary ---
Author Organization [facility] Address [address] [place] [address] Care Team Providers Care Lead Oracle Developer Name Role Phone Federico Bowman MD Primary Care Provider [phone] Encounter Details Date Type Department Care Team (Late st Contact Info) Description 07/09/2024 Lab Requisition [facility] - Main Lab [address] [facility] [place] [address] Federico Bowman MD [address] [place] [address] Essential (primary) hypertension Social History [...] LAB CHEMISTRY METHOD 07/10/2024 10:27 AM EST [facility] Potassium 4.3 3.5 - 5.5 mmol/L LAB CHEMISTRY METHOD 07/10/2024 10:27 AM EST [facility] Chloride 111(H) 96 - 110 mmol/L LAB CHEMISTRY METHOD 07/10/2024 10:27 AM EST [facility] CO2 28 21 - 32 [...] LAB CHEMISTRY METHOD 07/10/2024 10:27 AM EST [facility] Blood Venous blood specimen / Unknown Venipuncture / Unknown 07/10/2024 4:56 AM EST 07/10/2024 9:43 AM EST us Federico Bowman MD LAB BLOOD ORDERABLES Final Resu lt [facility] [address] [place] [address], documented in this encounter Visit Diagnoses Diagnosis Essential (primary) hypertension Unspecified essential hypertension documented in this encounter Care Teams Lead Oracle Developer Relationship Specialty Start Date End Date Federico Bowman MD [address] [place] [address] PCP - General Internal Medicine 07/04/24 documented as of this encounter
--- OUTSIDE RECORDS SUMMARY | 2025-06-30 13:28 | XMS_ITS | Encounter Summary ---
Author Organization [facility] Address [address] [place] [address] Phone Care Team Providers Care Pipe Caulker Name Role Phone Conrado Hampton MD Primary Care Provider Pcp, Unknown Primary Care Provider Unavailabl e Encounter Details Date Type Department Care Team (Latest Contact Info) Description 12/12/2017 Transcribe Orders [facility] [address] [place] [address] Anish Garrido MD [address] [place] [address] Symptomatic menopausal or female climacteric states (Primary [...] (12/12/2017 10:50 AM EDT) PROGESTERONE 1.50 ng/mL [facility] Comment: FEMALE: Follicular: 0.057 - 0.893 ng/ml Luteal: 1.83 - 23.9 ng/ml Blood 12/12/2017 10:5 0 AM EDT 12/12/2017 10:54 AM EDT us Anish Garrido MD LAB BLOOD BKR ORDERABLE S Final Result [facility] [address] [place] [address] * (ABNORMAL) Testosterone, total and free (12/12/2017 10:50 AM EDT) FREE TESTOSTERONE 1.03(H) 0.06 - 0.79 ng/dL [facility] Comment: (NOTE) ADDITIONAL INFORMATION Testing performed by [facility]. This test was developed and its performance characteristics determined by [facility] in a manner consistent with CLIA requirements. This test has not been cleared or approved by the U.S. Food and Drug Administration. TESTOSTERONE, TOTAL 103(H) 8 - 60 ng/dL [facility] [place] Comment: (NOTE) ADDITIONAL INFORMATION Testing performed by Liquid Chromatography-Tandem Mass Spectrometry (LC-MS/MS). This test was developed and its performance characteristics determined by [facility] in a manner consistent with CLIA requirements. This test has not been cleared or approved by the U.S. Food and Drug Administration. Blood 12/12/2017 10:5 0 AM EDT 12/12/2017 10:54 AM EDT us Anish Garrido MD LAB BLOOD BKR ORDERABLE S Final Result [facility] [address] [place] [address] * Estradiol (12/12/2017 10:50 AM EDT) ESTRADIOL 65 pg/mL [facility] Comment: FEMALE: Follicular: Less than 12 to 233 pg/ml Midcycle: 41 - 398 pg/ml Luteal: 22 - 341 pg/ml Postmenopausal: less than 5 - 138 pg/ml Blood 12/12/2017 10:5 0 AM EDT 12/12/2017 10:54 AM EDT us Anish Garrido MD LAB BLOOD BKR ORDERABLE S Final Result [facility] [address] [place] [address] * (ABNORMAL) DHEA-Sulfate (12/12/2017 10:50 AM EDT) DHEAS 335(H) <15 - 157 mcg/dL [facility] Blood 12/12/2017 10:5 0 AM EDT 12/12/2017 10:54 AM EDT Anish Garrido MD LAB BLOOD ORDERABLES Fi nal Result Performing Organization Address City/[facility]/ZIP Co de Phone Number [facility] [address] [place] [address] documented in this encounter Visit Diagnoses Diagnosis Symptomatic menopausal or female climacteric states- Primary 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 It is not the complete legal health record.[facility]
--- OUTSIDE RECORDS SUMMARY | 2025-06-30 13:28 | XMS_ITS | Encounter Summary ---
Author Organization [facility] Address [address] [place] [address] Care Team Providers Care Rigging And Controls Aircraft Mechanic Name Role Phone Federico Bowman MD Primary Care Provider [phone] Encounter Details Date Type Department Care Team (Late st Contact Info) Description 07/24/2024 Lab Requisition [facility] - Main Lab [address] [facility] [place] [address] Federico Bowman MD [address] [place] [address] Essential (primary) hypertension Social History [...] EST [facility] Potassium 4.3 3.5 - 5.5 mmol/L LAB CHEMISTRY METHOD 07/26/2024 11:58 AM EST [facility] Chloride 109 96 - 110 [...] lt [facility] [address] [place] [address], * (ABNORMAL) Complete blood count (07/26/2024 5:09 [...] MD LAB BLOOD ORDERABLES Final Resu lt [facility] [address] [place] [address], documented in this encounter Visit Diagnoses Diagnosis Essential (primary) hypertension Unspecified essential hypertension documented in this encounter Care Teams Rigging And Controls Aircraft Mechanic Relationship Specialty Start Date End Date Federico Bowman MD [address] [place] [address] PCP - General Internal Medicine 07/04/24 documented as of this encounter
--- OUTSIDE RECORDS SUMMARY | 2025-06-30 13:28 | XMS_ITS | Encounter Summary ---
Author Organization [facility] Address [address] [place] [address] Care Team Providers Care Financial Investment Manager Name Role Phone Federico Bowman MD Primary Care Provider [phone] Encounter Details Date Type Department Care Team (Late st Contact Info) Description 07/08/2024 Lab Requisition [facility] - Main Lab [address] [facility] [place] [address] Federico Bowman MD [address] [place] [address] Essential (primary) hypertension Social History [...] % LAB HEMETOLOGY METHOD 07/09/2024 9:54 AM [facility] MCV 100.2(H) 79.0 - 98.0 FL LAB HEMETOLOGY METHOD 07/09/2024 9:54 AM [facility] MCH 30.5 27.0 - 32.0 pcg LAB HEMETOLOGY METHOD 07/09/2024 9:54 AM EST [facility] MCHC 30.5(L) 32.0 - 37.0 g/dL LAB HEMETOLOGY METHOD 07/09/2024 9:54 AM [facility] RDW 13.9 11.0 - 15.0 % LAB HEMETOLOGY METHOD 07/09/2024 9:54 AM [facility] Platelets 406(H) 130 - 400 K/mcL LAB HEMETOLOGY METHOD 07/09/2024 9:54 AM EST [facility] MPV 10.5 7.0 - 11.0 FL LAB HEMETOLOGY METHOD 07/09/2024 9:54 AM [facility] NRBC 0.0 <1.0 % LAB HEMETOLOGY METHOD 07/09/2024 9:54 AM [facility] NRBC Absolute 0.00 <0.10 K/mcL LAB HEMETOLOGY METHOD 07/09/2024 9:54 AM [facility] Blood Venous blood specimen / Unknown Venipuncture / Unknown 07/09/2024 4:55 AM EST 07/09/2024 9:16 AM EST us Federico Bowman MD LAB BLOOD ORDERABLES Final Resu lt [facility] [address] [place] [address], documented in this encounter Visit Diagnoses Diagnosis Essential (primary) hypertension Unspecified essential hypertension documented in this encounter Care Teams Financial Investment Manager Relationship Specialty Start Date End Date Federico Bowman MD [address] [place] [address] PCP - General Internal Medicine 07/04/24 documented as of this encounter
--- OUTSIDE RECORDS SUMMARY | 2025-06-30 13:28 | XMS_ITS | Clinical Summary ---
Author Organization [address] [facility] Address [address] [place] [address] Phone Care Team Providers Care Brand Strategist Name Role Phone Federico Bowman MD Primary Care Provider [phone] Social History Tobacco Use Types Packs/Day Years [...] Screening 06/27/2024 Depression Screening 08/01/2024 COVID-19 Vaccine (1 - 2024-2 6 season) 2025 Influenza Vaccine (#1) 2025 06/20/2024 [...] age to complete this topic Insurance MEDICARE [facility] [id number] Care Teams Brand Strategist Relationship Specialty Start Date End Date Federico Bowman MD [address] [place] [address] PCP - General Internal Medicine 07/04/24
--- OUTSIDE RECORDS SUMMARY | 2025-06-30 13:28 | XMS_ITS | Clinical Summary ---
Author Organization [facility] Address [address] [place] [address] Phone Care Team Providers Care Pin Drafter Name Role Phone Pcp, Unknown Primary Care [...] file Insurance MEDICARE PART A & B [facility] MEDICARE SUPPLEMENT MEDICARE PART A & B [employer] MEDICARE SUPPLEMENT MEDICARE PART A & B Member Subscriber Plan / Payer ( fective 2005-) Name:Yumiko Pearce Member ID:[id number] Relation to Subscriber:Self Name:Yumiko Pearce Subscriber ID:[id number] Payer ID:[id number] Group ID:Not on file Type:Medicare Address: [employer] [address] [employer] MEDICARE SUPPLEMENT MEDICARE PART A & [facility]ION MEDICARE SUPPLEMENT MEDICARE PART A & B [facility] [employer] MEDICARE SUPPLEMENT MEDICARE PART A & B Member Subscriber Plan / Payer (Ef fective 2005-Present) Name:Yumiko Peacre Member ID:[id number] Relation to Subscriber:Self Name:Yumiko Pearce Subscriber ID:[id number] Payer ID:[id number] Group ID:Not on file Type:Medicare Address: [employer] [address] [facility] [employer] MEDICARE SUPPLEMENT MEDICARE PART A & B [employer] MEDICARE SUPPLEMENT MEDICARE PART A & B [employer] [place] [address] MEDICARE PART A & B [facility] [employer] MEDICARE SUPPLEMENT Care Teams Pin Drafter Relationship Specialty Start Date End Date Pcp, Unknown PCP - General 01/25/20 Additional Source Comments The information contained in this document represents components of the legal health record. It is not the complete legal health record.[facility]
--- OUTSIDE RECORDS SUMMARY | 2025-06-30 13:28 | XMS_ITS | Encounter Summary ---
Author Organization [facility] Address [address] [place] [address] Care Team Providers Care Acid Concentrator Name Role Phone Federico Bowman MD Primary Care Provider [phone] Encounter Details Date Type Department Care Team (Late st Contact Info) Description 07/04/2024 Lab Requisition [facility] - Main Lab [address] [facility] [place] [address] Federico Bowman MD [address] [place] [address] Essential (primary) hypertension Social History [...] LAB CHEMISTRY METHOD 07/05/2024 8:56 AM EST [facility] Potassium 4.6 3.5 - 5.5 mmol/L LAB CHEMISTRY METHOD 07/05/2024 8:56 AM EST [facility] Chloride 108 96 - 110 mmol/L LAB CHEMISTRY METHOD 07/05/2024 8:56 AM [facility] LAB CO2 28 21 - 32 mmol/L LAB CHEMISTRY METHOD 07/05/2024 8:56 AM [facility] LAB Anion Gap 5 3 - 11 LAB CHEMISTRY METHOD 07/05/2024 8:56 AM [facility] LAB Glucose 84 70 - 100 mg/dL LAB CHEMISTRY METHOD 07/05/2024 8:56 AM [facility] LAB BUN 15 5 - 25 mg/dL LAB CHEMISTRY METHOD 07/05/2024 8:56 AM [facility] LAB Creatinine 0.83 0.50 - 1.10 mg/dL LAB CHEMISTRY METHOD 07/05/2024 8:56 AM [facility] LAB eGFR 70 >=60 mL/min/1. 73m2 LAB CHEMISTRY METHOD 07/05/2024 8:56 AM [facility] LAB Comment:Calculation based on the Chronic Kidney Disease Epidemiology Collaboration (CKD-EPI) equation refit without adjustment for race. BUN/Creatinine Ratio 18.1 LAB CHEMISTRY METHOD 07/05/2024 8:56 AM [facility] LAB Calcium 8.8 8.5 - 10.5 mg/dL LAB CHEMISTRY METHOD 07/05/2024 8:56 AM [facility] LAB Blood Venous blood specimen / Unknown Venipuncture / Unknown 07/05/2024 4:57 AM EST 07/05/2024 8:14 AM EST us Federico Bowman MD LAB BLOOD ORDERABLES Final Resu lt [facility] [address] [place] [address], * (ABNORMAL) Complete blood count (07/05/2024 4:57 AM EST) WBC 6.9 4.8 - 10.8 K/mcL LAB HEMETOLOGY METHOD 07/05/2024 8:31 AM [facility] LAB RBC 3.80 3.80 - 4.80 M/mcL LAB HEMETOLOGY METHOD 07/05/2024 8:31 AM [facility] LAB Hemoglobin 11.3(L) 11.5 - 16.0 g/dL LAB HEMETOLOGY METHOD 07/05/2024 8:31 AM [facility] LAB Hematocrit 36.6 35.0 - 47.0 % LAB HEMETOLOGY METHOD 07/05/2024 8:31 AM [facility] LAB MCV 97.1 79.0 - 98.0 FL LAB HEMETOLOGY METHOD 07/05/2024 8:31 AM [facility] LAB MCH 30.0 27.0 - 32.0 pcg LAB HEMETOLOGY METHOD 07/05/2024 8:31 AM [facility] LAB MCHC 30.9(L) 32.0 - 37.0 g/dL LAB HEMETOLOGY METHOD 07/05/2024 8:31 AM [facility] LAB RDW 13.4 11.0 - 15.0 % LAB HEMETOLOGY METHOD 07/05/2024 8:31 AM [facility] LAB Platelets 366 130 - 400 K/mcL LAB HEMETOLOGY METHOD 07/05/2024 8:31 AM [facility] LAB MPV 10.8 7.0 - 11.0 FL LAB HEMETOLOGY METHOD 07/05/2024 8:31 AM [facility] LAB NRBC 0.0 <1.0 % LAB HEMETOLOGY METHOD 07/05/2024 8:31 AM [facility] LAB NRBC Absolute 0.00 <0.10 K/mcL LAB HEMETOLOGY METHOD 07/05/2024 8:31 AM [facility] LAB Blood Venous blood specimen / Unknown Venipuncture / Unknown 07/05/2024 4:57 AM EST 07/05/2024 8:14 AM EST Federico Bowman MD LAB BLOOD ORDERABLES Final Resu lt [facility] ([facility]) [facility] [address] [place] [address], documented in this encounter Visit Diagnoses Diagnosis Essential (primary) hypertension Unspecified essential hypertension documented in this encounter Care Teams Acid Concentrator Relationship Specialty Start Date End Date Federico Bowman MD [address] [place] [address] PCP - General Internal Medicine 07/04/24 documented as of this encounter
--- OUTSIDE RECORDS SUMMARY | 2025-06-30 13:28 | XMS_ITS | Encounter Summary ---
Author Organization [facility] Address [address] [place] [address] Care Team Providers Care Corporate Giving Manager Name Role Phone Federico Bowman MD Primary Care Provider [phone] Encounter Details Date Type Department Care Team (Late st Contact Info) Description 07/11/[address] [facility] - Main Lab [address] [facility] [place] [address] Federico Bowman MD [address] [place] [address] Essential (primary) hypertension Social History [...] LAB CHEMISTRY METHOD 07/12/2024 9:45 AM EST [facility] Potassium 4.3 3.5 - 5.5 mmol/L LAB CHEMISTRY METHOD 07/12/2024 9:45 AM EST [facility] LAB Chloride 108 96 - 110 mmol/L LAB CHEMISTRY METHOD 07/12/2024 9:45 AM [facility] LAB CO2 29 21 - 32 mmol/L LAB CHEMISTRY METHOD 07/12/2024 9:45 AM [facility] LAB Anion Gap 5 3 - 11 LAB CHEMISTRY METHOD 07/12/2024 9:45 AM [facility] LAB Glucose 72 70 - 100 mg/dL LAB CHEMISTRY METHOD 07/12/2024 9:45 AM [facility] BUN 12 5 - 25 mg/dL LAB CHEMISTRY METHOD 07/12/2024 9:45 AM [facility] LAB Creatinine 0.93 0.50 - 1.10 mg/dL LAB CHEMISTRY METHOD 07/12/2024 9:45 AM [facility] LAB eGFR 61 >=60 mL/min/1. 73m2 LAB CHEMISTRY METHOD 07/12/2024 9:45 AM [facility] LAB Comment:Calculation based on the Chronic Kidney Disease Epidemiology Collaboration (CKD-EPI) equation refit without adjustment for race. BUN/Creatinine Ratio 12.9 LAB CHEMISTRY METHOD 07/12/2024 9:45 AM [facility] Calcium 9.1 8.5 - 10.5 mg/dL LAB CHEMISTRY METHOD 07/12/2024 9:45 AM [facility] LAB Blood Venous blood specimen / Unknown 07/12/2024 5:10 AM EST 07/12/2024 9:10 AM EST us Federico Bowman MD LAB BLOOD ORDERABLES Final Resu lt [facility] LAB [address] [place] [address], * (ABNORMAL) Complete blood count (07/12/2024 5:10 AM EST) WBC 5.6 4.8 - 10.8 K/mcL LAB HEMETOLOGY METHOD 07/12/2024 9:22 AM [facility] RBC 3.80 3.80 - 4.80 M/mcL LAB HEMETOLOGY METHOD 07/12/2024 9:22 AM [facility] Hemoglobin 11.5 11.5 - 16.0 g/dL LAB HEMETOLOGY METHOD 07/12/2024 9:22 AM [facility] LAB Hematocrit 37.1 35.0 - 47.0 % LAB HEMETOLOGY METHOD 07/12/2024 9:22 AM [facility] LAB MCV 97.9 79.0 - 98.0 FL LAB HEMETOLOGY METHOD 07/12/2024 9:22 AM [facility] MCH 30.3 27.0 - 32.0 pcg LAB HEMETOLOGY METHOD 07/12/2024 9:22 AM [facility] LAB MCHC 31.0(L) 32.0 - 37.0 g/dL LAB HEMETOLOGY METHOD 07/12/2024 9:22 AM [facility] LAB RDW 13.8 11.0 - 15.0 % LAB HEMETOLOGY METHOD 07/12/2024 9:22 AM [facility] LAB Platelets 313 130 - 400 K/mcL LAB HEMETOLOGY METHOD 07/12/2024 9:22 AM [facility] LAB MPV 10.2 7.0 - 11.0 FL LAB HEMETOLOGY METHOD 07/12/2024 9:22 AM [facility] LAB NRBC 0.0 <1.0 % LAB HEMETOLOGY METHOD 07/12/2024 9:22 AM [facility] LAB NRBC Absolute 0.00 <0.10 K/mcL LAB HEMETOLOGY METHOD 07/12/2024 9:22 AM [facility] Blood Venous blood specimen / Unknown 07/12/2024 5:10 AM EST 07/12/2024 9:11 AM EST Federico Bowman MD LAB BLOOD ORDERABLES Final Resu lt [facility] [address] [place] [address], documented in this encounter Visit Diagnoses Diagnosis Essential (primary) hypertension Unspecified essential hypertension documented in this encounter Care Teams Corporate Giving Manager Relationship Specialty Start Date End Date Federico Bowman MD [address] [place] [address] PCP - General Internal Medicine 07/04/24 documented as of this encounter
--- OUTSIDE RECORDS SUMMARY | 2025-06-30 13:28 | XMS_ITS | Encounter Summary ---
Author Organization [facility] Address [address] [place] [address] Care Team Providers Care Senior Actuarial Analyst Name Role Phone Federico Bowman MD Primary Care Provider [phone] Encounter Details Date Type Department Care Team (Late st Contact Info) Description 07/21/2024 Lab Requisition [facility] - Main Lab [address] [facility] [place] [address] Federico Bowman MD [address] [place] [address] Essential (primary) hypertension Social History [...] LAB CHEMISTRY METHOD 07/23/2024 10:[address] [facility] Potassium 4.4 3.5 - 5.5 mmol/L LAB CHEMISTRY METHOD 07/23/2024 10:[address] [facility] Chloride 110 96 - 110 mmol/L LAB CHEMISTRY METHOD 07/23/2024 10:[address] [facility] CO2 29 21 - 32 mmol/L LAB CHEMISTRY METHOD 07/23/2024 10:[address] [facility] Anion Gap 4 3 - 11 LAB CHEMISTRY METHOD 07/23/2024 10:[address] [facility] Glucose 76 70 - 100 mg/dL LAB CHEMISTRY METHOD 07/23/2024 10:[address] [facility] BUN 16 5 - 25 mg/dL LAB CHEMISTRY METHOD 07/23/2024 10:[address] [facility] Creatinine 0.88 0.50 - 1.10 mg/dL LAB CHEMISTRY METHOD 07/23/2024 10:[address] [facility] LAB eGFR 65 >=60 mL/min/1. 73m2 LAB CHEMISTRY METHOD 07/23/2024 10:[address] [facility] Comment:Calculation based on the Chronic Kidney Disease Epidemiology Collaboration (CKD-EPI) equation refit without adjustment for race. BUN/Creatinine Ratio 18.2 LAB CHEMISTRY METHOD 07/23/2024 10:[address] [facility] Calcium 9.1 8.5 - 10.5 mg/dL LAB CHEMISTRY METHOD 07/23/2024 10:[address] [facility] AST (SGOT) 12 10 - 42 unit/L LAB CHEMISTRY METHOD 07/23/2024 10:[address] [facility] ALT (SGPT) 12 10 - 60 unit/L LAB CHEMISTRY METHOD 07/23/2024 10:[address] [facility] Alkaline Phosphatase 84 42 - 121 unit/L LAB CHEMISTRY METHOD 07/23/2024 10:[address] [facility] Total Protein 5.3(L) 6.0 - 8.0 g/dL LAB CHEMISTRY METHOD 07/23/2024 10:[address] [facility] Albumin 2.7(L) 3.2 - 5.0 g/dL LAB CHEMISTRY METHOD 07/23/2024 10:[address] [facility] Total Bilirubin 0.4 0.0 - 1.4 mg/dL LAB CHEMISTRY METHOD 07/23/2024 10:[address] [facility] Blood Venous blood specimen / Unknown Venipuncture / Unknown 07/23/2024 5:10 AM EST 07/23/2024 9:38 AM EST us Federico Bowman MD LAB BLOOD ORDERABLES Final Resu lt [facility] [address] [place] [address], * (ABNORMAL) Complete blood count (07/23/2024 5:10 AM EST) WBC 6.0 4.8 - 10.8 K/mcL LAB HEMETOLOGY METHOD 07/23/2024 9:[address] [facility] RBC 3.60(L) 3.80 - 4.80 M/[facility] LAB HEMETOLOGY METHOD 07/23/2024 9:[address] [facility] Hemoglobin 11.1(L) 11.5 - 16.0 g/dL LAB HEMETOLOGY METHOD 07/23/2024 9:[address] [facility] Hematocrit 36.0 35.0 - 47.0 % LAB HEMETOLOGY METHOD 07/23/2024 9:[address] [facility] MCV 99.7(H) 79.0 - 98.0 FL LAB HEMETOLOGY METHOD 07/23/2024 9:[address] [facility] MCH 30.7 27.0 - 32.0 pcg LAB HEMETOLOGY METHOD 07/23/2024 9:[address] [facility] MCHC 30.8(L) 32.0 - 37.0 g/dL LAB HEMETOLOGY METHOD 07/23/2024 9:[address] [facility] RDW 14.4 11.0 - 15.0 % LAB HEMETOLOGY METHOD 07/23/2024 9:[address] [facility] Platelets 321 130 - 400 K/mcL LAB HEMETOLOGY METHOD 07/23/2024 9:[address] [facility] MPV 10.5 7.0 - 11.0 FL LAB HEMETOLOGY METHOD 07/23/2024 9:[address] [facility] NRBC 0.0 <1.0 % LAB HEMETOLOGY METHOD 07/23/2024 9:[address] [facility] NRBC Absolute 0.00 <0.10 K/mcL LAB HEMETOLOGY METHOD 07/23/2024 9:[address] [facility] Blood Venous blood specimen / Unknown Venipuncture / Unknown 07/23/2024 5:10 AM EST 07/23/2024 9:33 AM EST us Federico Bowman MD LAB BLOOD ORDERABLES Final Resu lt [facility] [address] [place] [address], documented in this encounter Visit Diagnoses Diagnosis Essential (primary) hypertension Unspecified essential hypertension documented in this encounter Care Teams Senior Actuarial Analyst Relationship Specialty Start Date End Date Federico Bowman MD [address] [place] [address] PCP - General Internal Medicine 07/04/24 documented as of this encounter
--- OUTSIDE RECORDS SUMMARY | 2025-06-30 13:28 | XMS_ITS | Encounter Summary ---
Author Organization [facility] Address [address] [place] [address] Care Team Providers Care Geological Technical Officer Name Role Phone Federico Bowman MD Primary Care Provider [phone] Encounter Details Date Type Department Care Team (Late st Contact Info) Description 06/29/2024 Lab Requisition [facility] - Main Lab [address] [facility] [place] [address] Federico Bowman MD [address] [place] [address] Essential (primary) hypertension Social History [...] LAB CHEMISTRY METHOD 07/02/2024 9:07 AM EST [facility] LAB Potassium 4.7 3.5 - 5.5 mmol/L LAB CHEMISTRY METHOD 07/02/2024 9:07 AM EST [facility] LAB Chloride 109 96 - 110 mmol/L LAB CHEMISTRY METHOD 07/02/2024 9:07 AM [facility] LAB CO2 27 21 - 32 mmol/L LAB CHEMISTRY METHOD 07/02/2024 9:07 AM [facility] LAB Anion Gap 7 3 - 11 LAB CHEMISTRY METHOD 07/02/2024 9:07 AM [facility] LAB Glucose 81 70 - 100 mg/dL LAB CHEMISTRY METHOD 07/02/2024 9:07 AM [facility] BUN 14 5 - 25 mg/dL LAB CHEMISTRY METHOD 07/02/2024 9:07 AM [facility] LAB Creatinine 0.82 0.50 - 1.10 mg/dL LAB CHEMISTRY METHOD 07/02/2024 9:07 AM [facility] LAB eGFR 71 >=60 mL/min/1. 73m2 LAB CHEMISTRY METHOD 07/02/2024 9:07 AM [facility] LAB Comment:Calculation based on the Chronic Kidney Disease Epidemiology Collaboration (CKD-EPI) equation refit without adjustment for race. BUN/Creatinine Ratio 17.1 LAB CHEMISTRY METHOD 07/02/2024 9:07 AM [facility] Calcium 8.8 8.5 - 10.5 mg/dL LAB CHEMISTRY METHOD 07/02/2024 9:07 AM [facility] LAB AST (SGOT) 15 10 - 42 unit/L LAB CHEMISTRY METHOD 07/02/2024 9:07 AM [facility] ALT (SGPT) 14 10 - 60 unit/L LAB CHEMISTRY METHOD 07/02/2024 9:07 AM [facility] LAB Alkaline Phosphatase 109 42 - 121 unit/L LAB CHEMISTRY METHOD 07/02/2024 9:07 AM [facility] Total Protein 5.4(L) 6.0 - 8.0 g/dL LAB CHEMISTRY METHOD 07/02/2024 9:07 AM [facility] LAB Albumin 2.8(L) 3.2 - 5.0 g/dL LAB CHEMISTRY METHOD 07/02/2024 9:07 AM [facility] LAB Total Bilirubin 0.5 0.0 - 1.4 mg/dL LAB CHEMISTRY METHOD 07/02/2024 9:07 AM [facility] LAB Blood Venous blood specimen / Unknown Venipuncture / Unknown 07/02/2024 5:02 AM EST 07/02/2024 8:22 AM EST us Federico Bowman MD LAB BLOOD ORDERABLES Final Resu lt [facility] LAB [address] [place] [address], * (ABNORMAL) Complete blood count (07/02/2024 5:02 AM EST) WBC 7.2 4.8 - 10.8 K/mcL LAB HEMETOLOGY METHOD 07/02/2024 8:43 AM [facility] RBC 3.80 3.80 - 4.80 M/mcL LAB HEMETOLOGY METHOD 07/02/2024 8:43 AM [facility] Hemoglobin 11.7 11.5 - 16.0 g/dL LAB HEMETOLOGY METHOD 07/02/2024 8:43 AM [facility] LAB Hematocrit 37.5 35.0 - 47.0 % LAB HEMETOLOGY METHOD 07/02/2024 8:43 AM [facility] LAB MCV 98.2(H) 79.0 - 98.0 FL LAB HEMETOLOGY METHOD 07/02/2024 8:43 AM [facility] LAB MCH 30.6 27.0 - 32.0 pcg LAB HEMETOLOGY METHOD 07/02/2024 8:43 AM [facility] LAB MCHC 31.2(L) 32.0 - 37.0 g/dL LAB HEMETOLOGY METHOD 07/02/2024 8:43 AM [facility] LAB RDW 13.5 11.0 - 15.0 % LAB HEMETOLOGY METHOD 07/02/2024 8:43 AM EST [facility] LAB Platelets 358 130 - 400 K/mcL LAB HEMETOLOGY METHOD 07/02/2024 8:43 AM EST [facility] LAB MPV 10.8 7.0 - 11.0 FL LAB HEMETOLOGY METHOD 07/02/2024 8:43 AM EST [facility] LAB NRBC 0.0 <1.0 % LAB HEMETOLOGY METHOD 07/02/2024 8:43 AM EST [facility] LAB NRBC Absolute 0.00 <0.10 K/mcL LAB HEMETOLOGY METHOD 07/02/2024 8:43 AM EST [facility] LAB Blood Venous blood specimen / Unknown Venipuncture / Unknown 07/02/2024 5:02 AM EST 07/02/2024 8:20 AM EST us Federico Bowman MD LAB BLOOD ORDERABLES Final Resu lt [facility] LAB [address] [place] [address], documented in this encounter Visit Diagnoses Diagnosis Essential (primary) hypertension Unspecified essential hypertension documented in this encounter Care Teams Geological Technical Officer Relationship Specialty Start Date End Date Federico Bowman MD [address] [place] [address] PCP - General Internal Medicine 07/04/24 documented as of this encounter
--- OUTSIDE RECORDS SUMMARY | 2025-06-30 13:28 | XMS_ITS | Patient Health Record ---
Author Organization [facility] Address [address] [address] Care Team Providers Care Exchange Architect Name Role Phone Boubacar Delarosa MD Primary Care Provider Concepción Law Unavailable [phone] Allergies Allergen (clinical drug ingredient) Drug/Non Drug Allergy documented on EMR Reaction Allergy Type Onset Date Status Information temporarily unavailable Amoxicillin hives Drug Allergy Active Information temporarily unavailable Penicillin mouth sores Drug Allergy Active Reason For Referral No Information Medications Medication [...] Problem Status W/U Status Risk Notes Problem Information temporarily unavailable Other hammer toe(s) (acquired), right foot (M20.41) Active confirmed Problem Information temporarily unavailable Other hammer toe(s) (acquired), left foot (M20.42) Active confirmed Problem Information temporarily unavailable 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, bilateral legs (I70.203) Active confirmed Problem Information temporarily unavailable Unsteady gait (R26.81) Active confirmed Problem Information temporarily unavailable 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) Active confirmed Problem Information temporarily unavailable Equinus contracture of right ankle (M24.571) Active confirmed Plan Of Treatment Pending Test Test Name Order Date X ray : Foot, left 3V 11/29/2018 X ray : Foot, right 3V 11/29/2018 [id number] NAIL, 6 OR MORE 04/07/2018 [id number] NAIL, 6 OR MORE 06/30/2018 [id number] SKIN LESIONS, OVER 4 04/07/20 18 [id number] SKIN LESIONS, OVER 4 06/30/20 18 Insurance Providers Payer Name Payer Address Payer Phone Subscriber Number Group Number Insured Name Patient Relationship to Insured Coverage Start Date Coverage End Date Medicare National [employer]t [employer] [address] [facility] [place] [address] [id number] Yumiko Pearce Self - patient is the insured [facility] [address] [place] [address] [id number] Yumiko Pearce Self - patient is the insured Medical (General) History Medical History History ICD Code Arthritis asthma Broken bones Cataracts Glaucoma High blood pressure Sciatica Back,Hip,and Knee pain Surgical History Surgery Date(Month/Year) femur 01/10/2015
--- OUTSIDE RECORDS SUMMARY | 2025-06-30 13:28 | XMS_ITS | Encounter Summary ---
Author Organization [facility] Address [address] [place] [address] Care Team Providers Care Drying Oven Attendant Name Role Phone Federico Bowman MD Primary Care Provider [phone] Encounter Details Date Type Department Care Team (Late st Contact Info) Description 07/13/2024 Lab Requisition [facility] - Main Lab [address] [facility] [email or web address] [address] Federico Bowman MD [address] [place] [address] Essential (primary) hypertension Social History [...] LAB CHEMISTRY METHOD 07/16/2024 11:41 AM EST [facility] Potassium 4.2 3.5 - 5.5 mmol/L LAB CHEMISTRY METHOD 07/16/2024 11:41 AM EST [facility] Chloride 111(H) 96 - 110 mmol/L LAB CHEMISTRY METHOD 07/16/2024 11:[address] [facility] CO2 25 21 - 32 mmol/L LAB CHEMISTRY METHOD 07/16/2024 11:[address] [facility] Anion Gap 9 3 - 11 LAB CHEMISTRY METHOD 07/16/2024 11:[address] [facility] Glucose 79 70 - 100 mg/dL LAB CHEMISTRY METHOD 07/16/2024 11:[address] [facility] BUN 15 5 - 25 mg/dL LAB CHEMISTRY METHOD 07/16/2024 11:[address] [facility] Creatinine 0.77 0.50 - 1.10 mg/dL LAB CHEMISTRY METHOD 07/16/2024 11:[address] [facility] eGFR 76 >=60 mL/min/1. 73m2 LAB CHEMISTRY METHOD 07/16/2024 11:[address] [facility] Comment:Calculation based on the Chronic Kidney Disease Epidemiology Collaboration (CKD-EPI) equation refit without adjustment for race. BUN/Creatinine Ratio 19.5 LAB CHEMISTRY METHOD 07/16/2024 11:[address] [facility] Calcium 8.6 8.5 - 10.5 mg/dL LAB CHEMISTRY METHOD 07/16/2024 11:[address] [facility] AST (SGOT) 12 10 - 42 unit/L LAB CHEMISTRY METHOD 07/16/2024 11:[address] [facility] ALT (SGPT) 20 10 - 60 unit/L LAB CHEMISTRY METHOD 07/16/2024 11:[address] [facility] Alkaline Phosphatase 92 42 - 121 unit/L LAB CHEMISTRY METHOD 07/16/2024 11:[address] [facility] Total Protein 5.1(L) 6.0 - 8.0 g/dL LAB CHEMISTRY METHOD 07/16/2024 11:[address] [facility] Albumin 2.6(L) 3.2 - 5.0 g/dL LAB CHEMISTRY METHOD 07/16/2024 11:[address] [facility] Total Bilirubin 0.3 0.0 - 1.4 mg/dL LAB CHEMISTRY METHOD 07/16/2024 11:[address] [facility] Blood Venous blood specimen / Unknown Venipuncture / Unknown 07/16/2024 5:08 AM EST 07/16/2024 10:15 AM EST us Federico Bowman MD LAB BLOOD ORDERABLES Final Resu lt [facility] [address] [place] [address], * (ABNORMAL) Complete blood count (07/16/2024 5:08 AM EST) WBC 6.9 4.8 - 10.8 K/mcL LAB HEMETOLOGY METHOD 07/16/2024 10:[address] [facility] RBC 3.50(L) 3.80 - 4.80 M/mcL LAB HEMETOLOGY METHOD 07/16/2024 10:[address] [facility] Hemoglobin 10.6(L) 11.5 - 16.0 g/dL LAB HEMETOLOGY METHOD 07/16/2024 10:[address] [facility] Hematocrit 34.3(L) 35.0 - 47.0 % LAB HEMETOLOGY METHOD 07/16/2024 10:[address] [facility] MCV 99.1(H) 79.0 - 98.0 FL LAB HEMETOLOGY METHOD 07/16/2024 10:[address] [facility] MCH 30.6 27.0 - 32.0 pcg LAB HEMETOLOGY METHOD 07/16/2024 10:[address] [facility] MCHC 30.9(L) 32.0 - 37.0 g/dL LAB HEMETOLOGY METHOD 07/16/2024 10:32 AM EST [facility] RDW 14.1 11.0 - 15.0 % LAB HEMETOLOGY METHOD 07/16/2024 10:32 AM EST [facility] Platelets 315 130 - 400 K/mcL LAB HEMETOLOGY METHOD 07/16/2024 10:32 AM EST [facility] LAB MPV 10.7 7.0 - 11.0 FL LAB HEMETOLOGY METHOD 07/16/2024 10:32 AM EST [facility] LAB NRBC 0.0 <1.0 % LAB HEMETOLOGY METHOD 07/16/2024 10:[address] [facility] NRBC Absolute 0.00 <0.10 K/mcL LAB HEMETOLOGY METHOD 07/16/2024 10:[address] [facility] Blood Venous blood specimen / Unknown Venipuncture / Unknown 07/16/2024 5:08 AM EST 07/16/2024 10:12 AM EST us Federico Bowman MD LAB BLOOD ORDERABLES Final Resu lt [facility] [address] [place] [address], documented in this encounter Visit Diagnoses Diagnosis Essential (primary) hypertension Unspecified essential hypertension documented in this encounter Care Teams Drying Oven Attendant Relationship Specialty Start Date End Date Federico Bowman MD [address] [place] [address] PCP - General Internal Medicine 07/04/24 documented as of this encounter
--- OUTSIDE RECORDS SUMMARY | 2025-06-30 13:28 | XMS_ITS | Encounter Summary ---
Author Organization [facility] Address [address] [place] [address] Care Team Providers Care Furnace Repairer Name Role Phone Federico Bowman MD Primary Care Provider [phone] Encounter Details Date Type Department Care Team (Late st Contact Info) Description 06/27/2024 Lab Requisition [facility] - Main Lab [address] [facility] [place] [address] Federico Bowman MD [address] [place] [address] Essential (primary) hypertension Social History [...] LAB CHEMISTRY METHOD 06/27/2024 2:43 PM EST [facility] Potassium 4.9 3.5 - 5.5 mmol/L LAB CHEMISTRY METHOD 06/27/2024 2:43 PM EST [facility] Chloride 108 96 - 110 mmol/L LAB CHEMISTRY METHOD 06/27/2024 2:43 PM [facility] CO2 26 21 - 32 mmol/L LAB CHEMISTRY METHOD 06/27/2024 2:43 PM [facility] Anion Gap 7 3 - 11 LAB CHEMISTRY METHOD 06/27/2024 2:43 PM [facility] Glucose 69(L) 70 - 100 mg/dL LAB CHEMISTRY METHOD 06/27/2024 2:43 PM [facility] BUN 16 5 - 25 mg/dL LAB CHEMISTRY METHOD 06/27/2024 2:43 PM [facility] Creatinine 0.86 0.50 - 1.10 mg/dL LAB CHEMISTRY METHOD 06/27/2024 2:43 PM [facility] eGFR 67 >=60 mL/min/1. 73m2 LAB CHEMISTRY METHOD 06/27/2024 2:43 PM [facility] Comment:Calculation based on the Chronic Kidney Disease Epidemiology Collaboration (CKD-EPI) equation refit without adjustment for race. BUN/Creatinine Ratio 18.6 LAB CHEMISTRY METHOD 06/27/2024 2:43 PM [facility] Calcium 8.7 8.5 - 10.5 mg/dL LAB CHEMISTRY METHOD 06/27/2024 2:43 PM [facility] AST (SGOT) 15 10 - 42 unit/L LAB CHEMISTRY METHOD 06/27/2024 2:43 PM [facility] ALT (SGPT) 14 10 - 60 unit/L LAB CHEMISTRY METHOD 06/27/2024 2:43 PM [facility] Alkaline Phosphatase 95 42 - 121 unit/L LAB CHEMISTRY METHOD 06/27/2024 2:43 PM [facility] Total Protein 5.8(L) 6.0 - 8.0 g/dL LAB CHEMISTRY METHOD 06/27/2024 2:43 PM [facility] Albumin 3.0(L) 3.2 - 5.0 g/dL LAB CHEMISTRY METHOD 06/27/2024 2:43 PM [facility] Total Bilirubin 0.8 0.0 - 1.4 mg/dL LAB CHEMISTRY METHOD 06/27/2024 2:43 PM [facility] Blood Venous blood specimen / Unknown Venipuncture / Unknown 06/27/2024 4:48 AM EST 06/27/2024 10:29 AM EST us Federico Bowman MD LAB BLOOD ORDERABLES Final Resu lt [facility] [address] [place] [address], * (ABNORMAL) Complete blood count (06/27/2024 4:48 AM EST) WBC 7.4 4.8 - 10.8 K/mcL LAB HEMETOLOGY METHOD 06/27/2024 10:39 AM [facility] RBC 4.10 3.80 - 4.80 M/[facility] LAB HEMETOLOGY METHOD 06/27/2024 10:39 AM [facility] Hemoglobin 12.5 11.5 - 16.0 g/dL LAB HEMETOLOGY METHOD 06/27/2024 10:39 AM [facility] Hematocrit 40.1 35.0 - 47.0 % LAB HEMETOLOGY METHOD 06/27/2024 10:39 AM [facility] MCV 98.0 79.0 - 98.0 FL LAB HEMETOLOGY METHOD 06/27/2024 10:39 AM [facility] MCH 30.6 27.0 - 32.0 pcg LAB HEMETOLOGY METHOD 06/27/2024 10:39 AM [facility] MCHC 31.2(L) 32.0 - 37.0 g/dL LAB HEMETOLOGY METHOD 06/27/2024 10:39 AM [facility] RDW 13.7 11.0 - 15.0 % LAB HEMETOLOGY METHOD 06/27/2024 10:39 AM EST [facility] Platelets 371 130 - 400 K/mcL LAB HEMETOLOGY METHOD 06/27/2024 10:39 AM EST [facility] MPV 11.3(H) 7.0 - 11.0 FL LAB HEMETOLOGY METHOD 06/27/2024 10:39 AM EST [facility] NRBC 0.0 <1.0 % LAB HEMETOLOGY METHOD 06/27/2024 10:39 AM EST [facility] NRBC Absolute 0.00 <0.10 K/mcL LAB HEMETOLOGY METHOD 06/27/2024 10:39 AM [facility] Blood Venous blood specimen / Unknown Venipuncture / Unknown 06/27/2024 4:48 AM EST 06/27/2024 10:29 AM EST us Federico Bowman MD LAB BLOOD ORDERABLES Final Resu lt [facility] [address] [place] [address], documented in this encounter Visit Diagnoses Diagnosis Essential (primary) hypertension Unspecified essential hypertension documented in this encounter Care Teams Furnace Repairer Relationship Specialty Start Date End Date Federico Bowman MD [address] [place] [address] PCP - General Internal Medicine 07/04/24 documented as of this encounter
--- NOTE | 2025-06-30 14:28 | ED.LOWEXIN ---
HPI - Extremity Injury (Lower) General Chief Complaint: Extremity Injury, Lower Stated Complaint: FALL 2 DAYS AGO, R KNEE PAIN Time Seen by Provider: 06/30/25 14:02 History of Present Illness ED Provider: Vanda Betancourt NP HPI Narrative: 85-year-old female medical history significant for normal pressure hydrocephalus, gait disorder and balance disorder, osteoarthritis, memory impairment with mild neurocognitive disorder, presents to the ER for evaluation of right-sided knee pain. Per her family the patient was using the commode yesterday, when she stood up to get off the commode had over extend her knee and was lowered to the ground by her family. There was no fall, no head strike, no LOC, no neck pain. Today she is experiencing increased swelling in the right knee and painful range of motion, therefore has the inability to bear weight and walk on the leg. Denies any fever, chills. No redness or warmth to the area. No direct trauma to the knee. No chest pain or pressure, shortness of breath, abdominal pain. Related Data Home Medications ?Medication ?Instructions ?Recorded ?Confirmed acetaminophen 650 mg 1,300 mg PO DAILY PRN Pain 12/18/24 07/01/25 tablet,extended release (Tylenol Arthritis Pain) Previous Rx's ?Medication ?Instructions ?Recorded Custom shoes #1 ea 06/04/25 oseltamivir 30 mg capsule (Tamiflu) 30 mg PO BID 5 days #10 caps 07/07/25 Allergies Allergy/AdvReac Type Severity Reaction Status Date / Time Penicillins (PENICILLINS) Allergy Intermediate RASH Verified 07/07/25 04:06 halothane (HALOTHANE) AdvReac Intermediate ELEVATED Verified 07/07/25 04:06 LIVER ENZYMES Review of Systems Review of Systems: ROS is otherwise negative unless mentioned in HPI. [facility] Past Medical History Medical History NPH (normal pressure hydrocephalus) Gait disorder Cognitive change Parkinsons disease Acute deep vein thrombosis of left lower extremity Hypertension COPD (chronic obstructive pulmonary disease) Allergic rhinitis Surgical History History of surgery No history of previous surgery Family History Family History Mother No problems noted. Father No problems noted. Social History Social History Household Members: Children Housing: House Do you presently have visiting nurse or other home services: Yes Alcohol intake: never Patient Tobacco Use Status: Never used Tobacco Tobacco use type: Cigarette e-Cigarette/Vaping Use: Never Used Second Hand Smoke Exposure: No Advance Directives Date on File: 06/18/24 service: No Current occupational status: retired Cognitive needs: Yes (Walker, cane, wheelchair) Hearing needs: No Vision needs: Yes (reading glasses) Physical Exam Exam: Exam: Nursing notes and vital signs reviewed. Constitutional: Well-appearing, NAD. Alert. Oriented to person, place. Eyes: EOMI. ENT: Pharynx normal. Neck: Normal inspection. Neck supple. CVS: Pulses normal. Respiratory: No respiratory distress. Abdomen: Nondistended. Skin: Skin warm and dry. Normal skin color. Extremities: No lower extremity edema. Right knee in a bent position, no bony tenderness to palpation. Mild swelling. Neuro: Oriented X 3. No motor deficit. Vital Signs: Vital Signs: Last Vital Signs Temp 98.4 F 07/03/25 05:13 Pulse 60 07/03/25 05:13 Resp 18 07/03/25 05:13 BP 145/66 H 07/03/25 05:13 Pulse Ox 100 07/03/25 05:13 O2 Del Method Room Air 07/03/25 05:13 BMI result Body Mass Index 20.7 Course Reevaluation(s) Reevaluation #1: Time: 16:57 Date: 07/01/25 Provider: ALONZO Patel Patient in physician observation for case management needs. No acute events reported overnight.? No current issues or complaints. VS stable. Patient was seen by Physical therapy, awaiting rehab placement. We will continue to monitor. Time: 10:33 Date: 07/02/25 Provider: Richelle Swift PA-C Patient in physician observation for case management needs. No acute events reported overnight.? No current issues or complaints. VS stable. Currently awaiting insurance authorization for STR placement. Will continue to monitor as we await disposition. Time: 08:18 Date: 07/03/25 Provider: Richelle Swift PA-C Patient in physician observation for case management needs. No acute events reported overnight.? No current issues or complaints. VS stable. Patient to discharge to [facility] VIA BLS at 9am for STR needs. Will continue to monitor as we await transportation. Time: 09:24 Date: 07/03/25 Provider: Quincy Turner MD Physician observation ended at 09:24 hours. Patient transferred to [facility]. Medications Administered Discontinued Medications Generic Name Dose Route Start Last Admin Trade Name Raffaele PRN Reason Stop Dose Admin Acetaminophen 650 mg 06/30/25 14:17 06/30/25 14:25 Acetaminophen 325 Mg Tablet PO 06/30/25 14:18 650 mg ONCE ONE Administration Medical Decision Making Medical Decision Making MDM Narrative: Overall she appears well however has clear swelling to the right knee, she is living in a bent position and when trying to extend the knee hesitates and experiences discomfort. 2+ pulses, brisk capillary refill. There is no redness, warmth overlying the knee and therefore I have low clinical suspicion for septic joint or septic arthritis. We will obtain x-rays, administer a dose of Tylenol and reassess. 1600-- I will be able to speak with her son Syed via phone [phone], (HCP and Power of Apartment Community Assistant Manager) reports the patient has a memory deficit, and that she currently lives alone. His brother Gene and his ex- visit the patient in her home a few times a week, and she has DIGITAL SOLUTION ARCHITECT care, however it is not 21/02. Therefore, I have concern that she will have a fall at home. Her gait instability with her memory impairment is concerning, and places her at increased risk for falls. I personally attempted to ambulate the patient in the ED and she was unable to get off the stretcher. We will place a consult for case management, Physical therapy. Differential Diagnosis Differential Diagnoses: The differential diagnosis associated with the presentation includes Septic joint, arthritis, dislocation, fracture, sprain Admission/Observation Consideration of admission/observation: Escalation of care including admission/observation considered (Observation indicated for CM/PT) Consult Healthcare Provider Management of the patient was discussed with: Cdl Truck Driver Lab Data Labs: Lab Results 07/01/25 Range/Units 08:45 COVID-19 (HUGO) Negative (Negative) COVID-19 Clin Com See Note Independent Interpretation I performed an independent interpretation of an: Plain X-Ray Interpretation: I have reviewed the patient's imaging and agree with the radiologist's findings. Radiology Impression Discussion of test interpretation with radiology: I have reviewed the radiologist's reading. Radiologist Impression: XR knee R IMPRESSION: 1. No acute bony abnormality. 2. Severe osteoarthritis. 3. Osteopenia. Independent Historian Clinical information obtained from an independent historian. History obtained from or confirmed by: Other (Son Syed via phone) External Record Review External record reviewed: Office record Chronic Conditions Patient?s care impacted by: Other (Neurocognitive delay) Social Determinants Patient?s care significantly limited by Social Determinants of Health including: Problems related to primary support group Discharge Plan Discharge Clinical Impression: Acute knee pain, Osteoarthritis of right knee Patient Disposition: Xfer Inpatient Rehab Fac Transfer Details: TO [facility], DR TURCIOS ACCEPTING Prescriptions: No Action oseltamivir [Tamiflu] 30 mg capsule 30 mg PO BID 5 Days Qty: 10 0RF (DME) Custom shoes See Rx Instructions .Route .MEDSUPPLY Qty: 1 0RF Rx Instructions: Please dispense extra-depth shoes with 3 pairs of custom-molded inserts. acetaminophen [Tylenol Arthritis Pain] 650 mg tablet extended release 1,300 mg PO DAILY PRN (Reason: Pain) Referrals: Dharmesh Colon [Outside] Adán Nixon FNP-C [Primary Care Provider, Internal Medicine] Discharge Date/Time: 07/03/25 09:24 Print Language: Honduran
[2025-06-30 17:13] VITALS: BP 174/77; PULSE 74; RESP 16; TEMP 36.6; O2SAT 97
[2025-06-30 20:03] VITALS: BP 177/78; PULSE 64; RESP 19; TEMP 36.7; O2SAT 98
[2025-06-30 22:00] VITALS: BP 168/68; PULSE 64; RESP 19; TEMP 36.7; O2SAT 98
[2025-07-01 04:00] VITALS: BP 168/68; PULSE 64; RESP 19; TEMP 36.7; O2SAT 98
--- NOTE | 2025-07-01 08:43 | PC.NURSE ---
PT awake and pleasant in conversation, she was cleaned and position was changed as she is incontinent of urine. approx 500 ml of urine was discarded from the suction canister. She is able to assist with her position changes.Bed alarm is on and a camera is in the room for added safety
[2025-07-01 09:07] LABS: COVID-19 Test Negative (Negative); IDNOW Serial# 08D9AD1C
[2025-07-01 09:45] VITALS: BP 172/66; PULSE 64; RESP 16; TEMP 36.6; O2SAT 97
--- NOTE | 2025-07-01 10:13 | PC.NURSE ---
Spoke with pt's daughter in law on phone. Aware of plan for CM rehab. Pt also aware . Pt is A&O but at times confused - was just asking if we spoke with her mother. Pt also intermittently trying to get OOB- camera in place and bed alarm for safety.
[2025-07-01 10:29] VITALS: RESP 20
--- NOTE | 2025-07-01 10:40 | MHC.CM.ED ---
Received case management consult overnight. Patient came to the ER d/t knee pain from fall. Work up essentially negative. Physical therapy eval completed. Rehab is recommended. Does not appear patient has been inpatient in any facility in the past 30 days. Referral will be sent to all 3 acute rehab facilities. Continue to monitor for d/c needs.
[2025-07-01 11:18] VITALS: BP 176/56; PULSE 62; RESP 18; TEMP 36.6; O2SAT 99
--- NOTE | 2025-07-01 11:40 | MHC.EDTECH ---
pt found incontinent of urine, leia care done, pads changed, purewick hooked in place and suctioning well. bed alarm on and camera in room d/t high fall risk and confusion.
--- NOTE | 2025-07-01 13:17 | MHC.EDTECH ---
toy baby from juan cart brought over to pt with positive results, RN made aware
--- NOTE | 2025-07-01 13:19 | PHA.MEDREC ---
Addendum entered by Lauren Gutierrez RPh 07/01/25 14:14: MED REC REVIEWED BY [facility] Original Note: harmacy Consult ? Medication Reconciliation Pharmacy has completed the medication reconciliation. Spoke with pt and she was a poor historian with her meds and told us we can call her mother and father, who should be at home . Spoke with pt son (Syed [phone]) to confirm meds and pt son states he knows pt only taking Acetaminophen Arthritis 2 PRN pain and nothing else at this time.
--- NOTE | 2025-07-01 14:15 | MHC.CM.ED ---
No acute rehab beds offered. Patient has [employer] as secondary insurance. [employer] will pay 80% of SNF cost, even when Medicare doesn't cover it. Patient will be billed for 20%. Spoke with patient's son/HCP, Syed, via telephone at [phone]. Alejandro aware of co-payment cost. Agreeable to referral being broadcasted and bed offers being discussed. Continue to monitor for d/c needs.
--- NOTE | 2025-07-01 14:41 | PC.NURSE ---
Pt tolerated lunch well. Pt continues to try to get OOB , virtual monitor/camera maintained for safety. VSS Pt denies complaints. Given baby doll to occupy her , pt redirectable. Pt voiding /incontinent clr yellow urine- Purewick in place
--- NOTE | 2025-07-01 16:44 | PC.NURSE ---
assumed care of pt at 1530 report received from kristine LOPEZ
[2025-07-01 17:19] VITALS: BP 181/56; PULSE 83; RESP 14; TEMP 36.6; O2SAT 92
--- NOTE | 2025-07-01 18:51 | MHC.CM.ED ---
CM spoke with son, Syed ([phone]) to discuss discharge planning. Reviewed 3 facilities that have offered a be: [facility], [facility] and [facility]. Syed will \discuss with family and make a decision in the am. CM reviewed PT evaluation with son.
--- NOTE | 2025-07-01 19:50 | PC.NURSE ---
ASSUMED CARE OF PT, PT SLEEPING, RESPIRATIONS EVEN AND UNLABORED.
[2025-07-02 01:01] VITALS: BP 126/70; PULSE 65; RESP 16; TEMP 36.2; O2SAT 97
[2025-07-02 09:40] VITALS: BP 141/78; PULSE 71; RESP 16; TEMP 36.9; O2SAT 96
--- NOTE | 2025-07-02 10:24 | MHC.CM.ED ---
Patient remains in ER. [facility] [address], [place], [facility] and [facility] are able to offers bed. Spoke with Syed via telehone at [phone]. [facility] accepts bed at [facility]. Facility made aware. Waiting to hear when patient can transfer to facility. Continue to monitor for d/c needs.
[2025-07-02 13:00] VITALS: BP 150/69; PULSE 64; RESP 16; TEMP 36.2; O2SAT 97
--- NOTE | 2025-07-02 13:00 | PC.NURSE ---
Received pt from main ED, reprt received, pt arrived in hospital bed, nad. Pt denies any c/o's. Vitals obtained and documented, pt noted incontinent of large loose stool, pericare provided. Bed alarm on, safety camera in place.
--- NOTE | 2025-07-02 14:25 | MHC.CM.ED ---
Auth has been obtained by Dharmesh Manriquez on [place]. Emily XAVIERS booked for tomorrow 07/03 at 9am. Med [facility] with chart. Patient, son Lizett Lynch RN and Richelle ROSADO aware. Continue to monitor for d/c needs.
--- NOTE | 2025-07-02 18:33 | PC.NURSE ---
VIMT for camera 15 requested, faxed, and activated.
[2025-07-02 19:45] VITALS: BP 174/71; PULSE 65; RESP 16; TEMP 36.7; O2SAT 96
[2025-07-03 05:13] VITALS: BP 145/66; PULSE 60; RESP 18; TEMP 36.9; O2SAT 100
--- NOTE | 2025-07-03 06:17 | PC.NURSE ---
Assumed care of pt at 1900 07/02/25. PT a/ox1 does not make needs known, vss, skin pwd and intact. Purewick in place but pt needing reminders to not remove it. Urine noted to be concentrated, encouraged PO fluids pt assisted to drink with straw. PT slept for much of shift, offering no complaints. Repositioned and full linen change completed. Plan for transport to [facility] via BLS 0900 07/03/25
--- NOTE | 2025-07-03 08:44 | PC.NURSE ---
Report given to RN at [facility]
== END 2025-07-03 09:24 ==
PROVIDERS: Nurse Practitioner; Emergency Provider Emergency Medicine Emergency Medical Services
DX: M25.561 Pain in right knee (principal); M17.11 Unilateral primary osteoarthritis, right knee; R26.9 Unspecified abnormalities of gait and mobility; R41.9 Unspecified symptoms and signs involving cognitive functions and awareness; G91.2 (Idiopathic) normal pressure hydrocephalus; Z88.0 Allergy status to penicillin
CPT/HCPCS: 73564; 87635; 97162; 99284; 99285

== ENCOUNTER → 2025-06-30 14:13 | Outpatient (BNV) | payer MEDICARE, OTHER, SELFPAY | PROVIDERS: Visit Provider Radiology Diagnostic Radiology | DX: M17.11 Unilateral primary osteoarthritis, right knee (principal); M85.861 Other specified disorders of bone density and structure, right lower leg | CPT/HCPCS: 73564 ==

== ENCOUNTER 2025-07-07 03:59 | Emergency (ER) | payer MEDICARE, OTHER, SELFPAY ==
[2025-07-07] VITALS (9 sets, daily range): BP systolic 143–200; BP diastolic 64–96; PULSE 70–99; RESP 12–30; TEMP 37.6–39.6; O2SAT 83–99; BMI 19.6
--- NOTE | ~2025-07-07 | XR_ITS ---
CLINICAL HISTORY: dyspnea, fever 1 view chest x-ray Comparison: None provided Findings: The lungs are clear. Normal size heart. No acute fracture. IMPRESSION: 1. No acute findings. This document has been electronically signed by: Rubens Alvarez MD on 07/07/2025 07:01:31
--- NOTE | 2025-07-07 04:07 | ECG_ITS ---
Test Reason : SOB Blood Pressure : */* mmHG Vent. Rate : 77 BPM Atrial Rate : * BPM P-R Int : * ms QRS Dur : 68 ms QT Int : 386 ms P-R-T Axes : * 37 33 degrees QTcB Int : 436 ms Artifact in tracing Undetermined rhythm Nonspecific ST and T wave abnormality Abnormal ECG When compared with ECG of 18-Nov-2024 16:40, Due to artifact, cannot compare Referred By: Generic ED Physician Electronically Signed By: MOE EMERSON
[2025-07-07] MEDS: Lactated Ringers 1,000 ML 999 ML IV ×2 (04:18→06:12)
[2025-07-07 04:21] LABS: Hematocrit 46.1 % (37.0-47.0); Hemoglobin 15.1 g/dl (12.0-16.0); Imm Gran Abs Auto 0.04 X10*3/uL (0.00-0.03); Imm Gran Pct Auto 0.6 % (0.0-0.4); Lymphocytes Absolute Auto 0.6 X10*3/uL (1.2-4.9); MANUAL DIFF FLAG NO; Mean Corpuscular HGB Conc 32.8 g/dl (31.0-35.0); Mean Corpuscular Hemoglobin 32.8 pg (27.0-33.0); Mean Corpuscular Volume 100.2 fL (80.0-98.0); NRBC Abs Auto 0.000 X10*3/uL (0.0-0.012); NRBC Pct Auto 0.0 /100WBC (0.0-0.2); Platelet Count 273 X10*3/uL (160-400); Red Blood Count 4.60 X10*6/uL (4.20-5.50); White Blood Count 7.0 X10*3/uL (4.8-10.8)
[2025-07-07] MEDS: cefEPime HCl/D5W 2 GM/50 ML PIGGYBACK IV (04:21)
[2025-07-07 04:26] LABS: INTERNATIONAL NORM RATIO 1.0 (0.9-1.1); Prothrombin Time 12.6 SEC (11.2-13.5)
--- OUTSIDE RECORDS SUMMARY | 2025-07-07 04:26 | XMS_ITS | Encounter Summary ---
Author Organization [facility] Address [address] [place] [id number] Phone Care Team Providers Care Inventory Taker Name Role Phone Conrado Hampton MD Primary Care Provider Pcp, Unknown Primary Care Provider Unavailabl e Reason for Referral * MRI/CAT Scan - Closed Specialty Diagnoses / Procedures Referred By Contac t Referred To Contact Radiology Diagnoses Low back pain radiating to both legs Left foot drop Procedures MRI Lumbar Spine Darwin Segura DO Phone: tel: fax: mailto:[email or web address] Referral ID Status Reason Start Date Expiration Date Visits Re quested Visits Authorized [id number] Closed 02/21/2018 02/21/2019 1 1 Encounter Details Date Type Department Care Team (Late st Contact Info) Description 02/21/2018 Ancillary Orders Virtual Department [address] [place] [address] Darwin Segura DO [address] [place] [address] [email or web address] Low back pain radiating to both legs; [...] of L4 on L5 and L5 on [id number]. This appearance is suggestive of bilateral L4 [...] foot documented in this encounter Care Teams Inventory Taker Relationship Specialty Start Date End Date Conrado Hampton MD [address] [place] [address] [address] [place] [address] PCP - General Pulmonary Disease 12/12/17 01/24/20 Pcp, Unknown PCP - General 01/25/20 documented as of this encounter Additional Source Comments The information contained in this document represents components of the legal health record. It is not the complete legal health record.[facility]
--- OUTSIDE RECORDS SUMMARY | 2025-07-07 04:26 | XMS_ITS | Clinical Summary ---
Author Organization [facility] Address [address] [place] [address] Phone Care Team Providers Care Athletic Coach Name Role Phone Pcp, Unknown Primary Care [...] file Insurance MEDICARE PART A & B [facility] MEDICARE SUPPLEMENT MEDICARE PART A & B [employer] MEDICARE SUPPLEMENT MEDICARE PART A & B Member Subscriber Plan / Payer ( fective 2005-) Name:Yumiko Pearce Member ID:[id number] Relation to Subscriber:Self Name:Yumiko Pearce Subscriber ID:[id number] Payer ID:[id number] Group ID:Not on file Type:Medicare Address: [employer] [address] [employer] MEDICARE SUPPLEMENT MEDICARE PART A & B [facility] [employer] MEDICARE SUPPLEMENT MEDICARE PART A & B [facility] [employer] MEDICARE SUPPLEMENT MEDICARE PART A & B Member Subscriber Plan / Payer (Ef fective 2005-Present) Name:Yumiko Pearce Member ID:[id number] Relation to Subscriber:Self Name:Yumiko Pearce Subscriber ID:[id number] Payer ID:[id number] Group ID:Not on file Type:Medicare Address: [employer] [address] [facility] [employer] MEDICARE SUPPLEMENT MEDICARE PART A & B [employer] MEDICARE SUPPLEMENT MEDICARE PART A & B [employer] [place] [phone] MEDICARE PART A & B [facility] [employer] MEDICARE SUPPLEMENT Care Teams Athletic Coach Relationship Specialty Start Date End Date Pcp, Unknown PCP - General 01/25/20 Additional Source Comments The information contained in this document represents components of the legal health record. It is not the complete legal health record.[facility]
--- OUTSIDE RECORDS SUMMARY | 2025-07-07 04:26 | XMS_ITS | Encounter Summary ---
Author Organization [facility] Address [address] [address] Phone Care Team Providers Care Rn Mds Name Role Phone Conrado Hampton MD Primary Care Provider Pcp, Unknown Primary Care Provider Unavailabl e Encounter Details Date Type Department Care Team (Latest Contact Info) Description 12/12/2017 Transcribe Orders [facility] Phleb [address] [place] [address] Anish Garrido MD [address] [place] [id number] Symptomatic menopausal or female climacteric states (Primary [...] (12/12/2017 10:50 AM EDT) PROGESTERONE 1.50 ng/mL [facility] Comment: FEMALE: Follicular: 0.057 - 0.893 ng/ml Luteal: 1.83 - 23.9 ng/ml Blood 12/12/2017 10:5 0 AM EDT 12/12/2017 10:54 AM EDT us Anish Garrido MD LAB BLOOD BKR ORDERABLE S Final Result [facility] [address] [place] [address] * (ABNORMAL) Testosterone, total and free (12/12/2017 10:50 AM EDT) FREE TESTOSTERONE 1.03(H) 0.06 - 0.79 ng/dL [facility] Comment: (NOTE) ADDITIONAL INFORMATION Testing performed by [facility]. This test was developed and its performance characteristics determined by [facility] in a manner consistent with CLIA requirements. This test has not been cleared or approved by the U.S. Food and Drug Administration. TESTOSTERONE, TOTAL 103(H) 8 - 60 ng/dL [facility] [place] Comment: (NOTE) ADDITIONAL INFORMATION Testing performed by Liquid Chromatography-Tandem Mass Spectrometry (LC-MS/MS). This test was developed and its performance characteristics determined by [facility] in a manner consistent with CLIA requirements. This test has not been cleared or approved by the U.S. Food and Drug Administration. Blood 12/12/2017 10:5 0 AM EDT 12/12/2017 10:54 AM EDT us Anish Garrido MD LAB BLOOD BKR ORDERABLE S Final Result [facility] [address] [place] [address] * Estradiol (12/12/2017 10:50 AM EDT) ESTRADIOL 65 pg/mL [facility] Comment: FEMALE: Follicular: Less than 12 to 233 pg/ml Midcycle: 41 - 398 pg/ml Luteal: 22 - 341 pg/ml Postmenopausal: less than 5 - 138 pg/ml Blood 12/12/2017 10:5 0 AM EDT 12/12/2017 10:54 AM EDT us Anish Garrido MD LAB BLOOD BKR ORDERABLE S Final Result [facility] [address] [place] [address] * (ABNORMAL) DHEA-Sulfate (12/12/2017 10:50 AM EDT) DHEAS 335(H) <15 - 157 mcg/dL [facility] Blood 12/12/2017 10:5 0 AM EDT 12/12/2017 10:54 AM EDT Anish Garrido MD LAB BLOOD ORDERABLES Fi nal Result Performing Organization Address City/[facility]/ZIP Co de Phone Number [facility] [address] [place] [address] documented in this encounter Visit Diagnoses Diagnosis Symptomatic menopausal or female climacteric states- Primary Obesity of endocrine origin Unspecified endocrine disorder documented in this encounter Care Teams Rn Mds Relationship Specialty Start Date End Date Conrado Hampton MD [address] [place] [address] [address] [place] [address] PCP - General Pulmonary Disease 12/12/17 01/24/20 Pcp, Unknown PCP - General 01/25/20 documented as of this encounter Additional Source Comments The information contained in this document represents components of the legal health record. It is not the complete legal health record.[facility]
--- OUTSIDE RECORDS SUMMARY | 2025-07-07 04:26 | XMS_ITS | Encounter Summary ---
Author Organization [facility] Address [address] [place] [phone] Phone Care Team Providers Care Online Trader Name Role Phone Pcp, Unknown Primary Care Provider Unavailabl e Encounter Details Date Type Department Care Team (Latest Contact Info) Description 04/14/2020 Transcribe Orders [facility] Phle[facility] [place] [place] [address] Robert Darling, [address] [place] [address] Symptomatic menopausal or female climacteric states (Primary [...] EDT) PREGNENOLONE 149 33 - 248 NG/DL [facility] Comment: (NOTE) ADDITIONAL INFORMATION This test was developed and its performance characteristics determined by [facility] in a manner consistent with CLIA requirements. This test has not been cleared or approved by the U.S. Food and Drug Administration. Blood 04/14/2020 3:07 PM EDT 04/14/2020 3:14 PM EDT [facility] LAB BLOOD ORDERABLES Final Resu lt Performing Organization Address [facility] de Phone Number [facility] MED/PATH [address] [place] [address] * Sex hormone binding globulin (04/14/2020 3:07 PM EDT) SEX HORMONE BIND GLOB 60 nmol/L [facility] Comment: (NOTE) REFERENCE VALUE 18-144 (non-) Blood 04/14/2020 3:07 PM EDT 04/14/2020 3:14 PM EDT [facility] LAB BLOOD ORDERABLES Final Resu lt Performing Organization Address [facility] de Phone Number [facility] MED/PATH [address] [place] [address] * (ABNORMAL) DHEA-SULFATE (04/14/2020 3:07 PM EDT) DHEAS 241(H) 5.3 - 124 mcg/dL [facility] Blood 04/14/2020 3:07 PM EDT 04/14/2020 3:14 PM EDT [facility] LAB BLOOD ORDERABLES Final Resu lt Performing Organization Address [facility] de Phone Number [facility] MED/PATH [address] [place] [address] * (ABNORMAL) 25-OH vitamin D (04/14/2020 3:07 PM EDT) 25 OH VIT D (TOTAL) 74(H) 30 - 60 ng/mL [facility] Blood 04/14/2020 3:07 PM EDT 04/14/2020 3:15 PM EDT [facility] BLOOD BKR ORDERABLES Final Result Performing Organization Address [facility] Co de Phone Number [facility] [address] [place] [address] * Testosterone, total and free (04/14/2020 3:07 PM EDT) [facility] FREE TESTOSTERONE 0.43 0.06 - 0.76 ng/dL [facility] Comment: (NOTE) ADDITIONAL INFORMATION Testing performed by [facility]. This test was developed and its performance characteristics determined by [facility] in a manner consistent with CLIA requirements. This test has not been cleared or approved by the U.S. Food and Drug Administration. TESTOSTERONE, TOTAL 31 8 - 60 ng/dL [facility] Comment: (NOTE) ADDITIONAL INFORMATION Testing performed by Liquid Chromatography-Tandem Mass Spectrometry (LC-MS/MS). This test was developed and its performance characteristics determined by [facility] in a manner consistent with CLIA requirements. This test has not been cleared or approved by the U.S. Food and Drug Administration. Blood 04/14/2020 3:07 PM EDT 04/14/2020 3:14 PM EDT [facility] LAB BLOOD BKR ORDERABLES Final Result Performing Organization Address [facility]/ZIP Co de Phone Number [facility] [address] [place] [address] * Progesterone (04/14/2020 3:07 PM EDT) PROGESTERONE 1.56 ng/mL [facility] Comment: FEMALE: Follicular: 0.057 - 0.893 ng/ml Luteal: 1.83 - 23.9 ng/ml Blood 04/14/2020 3:07 PM EDT 04/14/2020 3:15 PM EDT [facility] LAB BLOOD BKR ORDERABLES Final Result Performing Organization Address [facility] Co de Phone Number [address] [address] * Estradiol (04/14/2020 3:07 PM EDT) ESTRADIOL 44 pg/mL [facility] Comment: FEMALE: Follicular: Less than 12 to 233 pg/ml Midcycle: 41 - 398 pg/ml Luteal: 22 - 341 pg/ml Postmenopausal: less than 5 - 138 pg/ml Blood 04/14/2020 3:07 PM EDT 04/14/2020 3:15 PM EDT [facility] LAB BLOOD BKR ORDERABLES Final Result Performing Organization Address [facility] Co de Phone Number [address] [address] documented in this encounter Visit Diagnoses Diagnosis Symptomatic menopausal or female climacteric states- Primary Essential hypertension, benign Asthmatic bronchitis without complication, unspecified asthma severity, unspecified whether persistent Glaucoma, unspecified glaucoma type, unspecified laterality Avitaminosis D Unspecified vitamin D deficiency documented in this encounter Care Teams Online Trader Relationship Specialty Start Date End Date Pcp, Unknown PCP - General 01/25/20 documented as of this encounter Additional Source Comments The information contained in this document represents components of the legal health record. It is not the complete legal health record.[facility]
--- OUTSIDE RECORDS SUMMARY | 2025-07-07 04:26 | XMS_ITS | Encounter Summary ---
Author Organization [facility] Address [address] [facility] [address] [place] [address] Phone Care Team Providers Care Resort Manager Name Role Phone Conrado Hampton MD Primary Care Provider Pcp, Unknown Primary Care Provider Unavailabl e Encounter Details Date Type Department Care Team (Late st Contact Info) Description 02/21/2018 Procedure Pass [facility], [address] [address] Social History Tobacco Use Types Packs/Day Years [...] on filedocumented in this encounter Care Teams Resort Manager Relationship Specialty Start Date End Date Conrado Hampton MD [address] [place] [address] Drive [address] [place] [address] PCP - General Pulmonary Disease 12/12/17 01/24/20 Pcp, Unknown PCP - General 01/25/20 documented as of this encounter Additional Source Comments The information contained in this document represents components of the legal health record. It is not the complete legal health record.[facility]
[2025-07-07 04:27] LABS: VBG HCO3 27 mmol/L (22-26); VBG O2 % Saturation 71.0 %
[2025-07-07 04:32] LABS: Venous Blood Gas Refer to POC result
[2025-07-07 04:36] LABS: Alanine Aminotransferase 16 U/L (0-31); Albumin Level 4.5 g/dL (3.5-5.0); Alkaline Phosphatase 101 U/L (39-117); Anion Gap 15 (12-20); Aspartate Amino Transferase 34 U/L (5-31); Blood Urea Nitrogen 18 mg/dL (9-16); Calcium 9.2 mg/dL (8.4-10.2); Carbon Dioxide 25 mmol/L (22-29); Chloride 108 mmol/L (96-108); Creatinine Clr Calc Pharmacy 41.7; Estimated Glomerular Filt Rate > 60; Potassium 4.8 mmol/L (3.3-5.1); Sodium 143 mmol/L (135-145); Total Protein 7.4 g/dL (6.5-8.0)
[2025-07-07 04:42] LABS: Troponin-I High Sensitivity 11.3 ng/L (<3.5-17.0)
[2025-07-07 04:57] LABS: Resp Syncy Virus RNA Qual PCR NEGATIVE (Negative); SARS COV2 PCR INHOUSE NEGATIVE (Negative)
[2025-07-07 04:58] LABS: Appearance Urine Clear; Glucose Urine UA Negative (Negative); PH 6.0 (5.0-9.0); Specific Gravity - Urine 1.025 (1.005-1.025); UMIC TRIGGER UACC YES
--- NOTE | 2025-07-07 07:24 | ED.FEVER ---
HPI - Fever General Chief Complaint: Dyspnea Stated Complaint: Low O2 & HTN Time Seen by Provider: 07/07/25 04:08 History of Present Illness HPI Narrative: 85[facility] for the [facility] Per EMS and facility report, she has been non-compliant with all home medications for the preceding 3 days. She developed fevers (documented to 103.2 ?F) and progressive shortness of breath today. Facility staff noted foul-smelling urine. No medications, including antipyretics, were given at the SNF. On EMS arrival: HR low 100s (110-120), SpO2 95 %, EtCO2 24, not hypotensive but hypertensive. Patient reports ongoing dyspnea. She denies chest pain, abdominal pain, nausea, knee pain, or cough. Past admission for osteoarthritis with acute knee pain was noted, but she reports no knee pain today. Related Data Home Medications ?Medication ?Instructions ?Recorded ?Confirmed acetaminophen 650 mg 1,300 mg PO DAILY PRN Pain 12/18/24 07/01/25 tablet,extended release (Tylenol Arthritis Pain) Previous Rx's ?Medication ?Instructions ?Recorded Custom shoes #1 ea 06/04/25 oseltamivir 30 mg capsule (Tamiflu) 30 mg PO BID 5 days #10 caps 07/07/25 Allergies Allergy/AdvReac Type Severity Reaction Status Date / Time Penicillins (PENICILLINS) Allergy Intermediate RASH Verified 07/07/25 04:06 halothane (HALOTHANE) AdvReac Intermediate ELEVATED Verified 07/07/25 04:06 LIVER ENZYMES Review of Systems Review of Systems: as per HPI, full review of systems performed and negative but for the above mentioned pertinent positives and negatives. FORMERLY [facility], [facility] Past Medical History Medical History NPH (normal pressure hydrocephalus) Gait disorder Cognitive change Parkinsons disease Acute deep vein thrombosis of left lower extremity Hypertension COPD (chronic obstructive pulmonary disease) Allergic rhinitis Surgical History History of surgery No history of previous surgery Family History Family History Mother No problems noted. Father No problems noted. Social History Social History Household Members: Children Housing: House Do you presently have visiting nurse or other home services: Yes Alcohol intake: never Patient Tobacco Use Status: Never used Tobacco Tobacco use type: Cigarette Smoked in Last 30 Days: No e-Cigarette/Vaping Use: Never Used Second Hand Smoke Exposure: No Use of substances other than those prescribed or required for medical reasons: No Advance Directives: Yes Advance Directives on File: Yes Advance Directives Date on File: 06/18/24 Do you have a plan to hurt others: No Plan service: No Current occupational status: retired Cognitive needs: Yes (Walker, cane, wheelchair) Hearing needs: No Vision needs: Yes (reading glasses) Physical Exam Exam: Exam: GENERAL: Ill-Appearing, appears uncomfortable. SKIN: Normal skin color for ethnicity, warm, dry, no rashes noted. HEENT:? Normocephalic, atraumatic, no stridor, dry mucous membranes, dentition intact, EOMI. NECK: Soft, supple, full ROM, midline structures nontender, no step-offs, no deformities, no lymphadenopathy. CHEST: Heart regular tachycardia, no murmurs, symmetric chest rise and fall. PULMONARY: Clear to auscultation bilaterally, diminished at the bases, no labored breathing, no wheezes/rhales/rhonchi. ABDOMINAL: Soft, nondistended, nontender, positive bowel sounds in all quadrants. : Deferred. MUSCULOSKELETAL: Normal tone, full range of motion, no deformities, no peripheral edema. NEURO: Alert and oriented to person, CN II through XII intact, equal strength and sensation bilateral upper and lower extremities, slight confusion.? PSYCHIATRIC: Flat affect, fluid speech, poor eye contact. Vital Signs: Vital Signs: Last Vital Signs Temp 99.7 F 07/07/25 06:49 Pulse 78 07/07/25 06:49 Resp 12 07/07/25 06:49 BP 170/80 H 07/07/25 06:49 Pulse Ox 94 07/07/25 06:49 O2 Del Method Room Air 07/07/25 06:49 BMI result Body Mass Index 19.6 Medications Administered Discontinued Medications Generic Name Dose Route Start Last Admin Trade Name Freq PRN Reason Stop Dose Admin Lactated Ringer's 1,000 mls @ 999 mls/hr 07/07/25 04:16 07/07/25 06:09 Lr IV 07/07/25 05:16 Infused .Q1H1M ONE Infusion Cefepime HCl 2 gm in 50 mls @ 100 mls/hr 07/07/25 04:16 07/07/25 04:58 Maxipime IV 07/07/25 04:45 Infused ONCE ONE Infusion Vancomycin HCl 1,250 mg/ 250 mls @ 166.667 mls/hr 07/07/25 04:16 07/07/25 07:20 Sodium Chloride IV 07/07/25 05:45 Infused ONCE ONE Infusion Acetaminophen 1,000 mg in 100 mls @ 400 mls/hr 07/07/25 04:17 07/07/25 04:36 Ofirmev IV 07/07/25 04:31 Infused ONCE ONE Infusion Lactated Ringer's 1,000 mls @ 999 mls/hr 07/07/25 05:49 07/07/25 06:12 Lr IV 07/07/25 06:49 999 mls/hr .Q1H1M ONE Administration Oseltamivir Phosphate 75 mg 07/07/25 05:35 07/07/25 06:11 Oseltamivir Phosphate 75 Mg Capsule PO 07/07/25 05:36 75 mg ONCE ONE Administration Medical Decision Making Medical Decision Making MDM Narrative: 85-year-old female with high-grade fever and dyspnea, concern for sepsis?likely urinary source versus pulmonary or viral (COVID/Influenza). Foul urine, fever, and tachypnea raise suspicion for UTI-related sepsis. Differential additionally includes septic joint (recent admission for osteoarthritis and knee pain), viral respiratory infection given reported flu outbreak at [facility], and plan for COVID/flu testing. Problem #1: Sepsis ? possible urinary tract infection Assessment: Febrile to 104.3 ?F, tachypneic, foul-smelling urine, from [facility]; lactate and cultures pending. Plan: Draw blood and urine cultures, send lactate. Initiate broad-spectrum IV antibiotics (ordered). Administer IV Tylenol for fever. Maintain judicious IV fluids?avoid aggressive resuscitation given hypertension; plan for 1 L bolus discussed but deferred at this time. Monitor vital signs and urine output; reassess frequently for response to therapy. Problem #2: Possible viral lower respiratory infection (COVID-19 / Influenza) Assessment: Shortness of breath, tachypnea, exposure in facility with reported flu outbreak; lungs clear on exam. Plan: Obtain COVID-19 PCR and Influenza testing - positive for influenza A Supportive care; monitor respiratory status closely. Relevant Comorbidities Patient has an extensive history of Parkinson?s disease, dementia, osteoarthritis, and normal pressure hydrocephalus (NPH), which may impact her baseline functional status, increase her risk for infection, and complicate her acute presentation and management. 7:29 AM 07/07/2025 (Dr. Laurita Simms, [place].) lactic acid level is low, vital signs are normalizing with treatment for influenza. Ordered Tamiflu. She received a broad spectrum antibiotic though I do not feel she needs any further antibiosis at this point given her relatively normal blood work and improved symptoms with fluids and Tamiflu. Plan for discharge back to SNF. Discharged in stable and improved condition. Disposition: Discharged back to SNF with diagnosis of influenza a. Differential Diagnosis Differential Diagnoses: The differential diagnosis associated with the presentation includes (as above) Admission/Observation Consideration of admission/observation: Escalation of care including admission/observation considered Lab Data [facility] Lab Attestation statement: I reviewed the patient's lab results. 07/07/25 04:10 07/07/25 04:10 Labs: Lab Results 07/07/25 07/07/25 07/07/25 Range/Units 04:10 04:14 04:20 WBC 7.0 (4.8-10.8) X10*3/uL RBC 4.60 (4.20-5.50) X10*6/uL Hgb 15.1 (12.0-16.0) g/dl Hct 46.1 (37.0-47.0) % MCV 100.2 H (80.0-98.0) fL MCH 32.8 (27.0-33.0) pg MCHC 32.8 (31.0-35.0) g/dl RDW 12.2 (11.0-16.0) % Plt Count 273 (160-400) X10*3/uL MPV 9.6 (9.4-12.3) fL Immature Gran % (Auto) 0.6 H (0.0-0.4) % Neut % (Auto) 77.8 H (45-73) % Lymph % (Auto) 9.1 L (20-40) % [place] % (Auto) 10.5 (2-11) % Eos % (Auto) 1.4 (0-4) % Baso % (Auto) 0.6 (0-2) % Lymph # (Auto) 0.6 L (1.2-4.9) X10*3/uL [place] # (Auto) 0.7 (0.1-1.2) X10*3/uL Eos # (Auto) 0.1 (0.0-0.4) X10*3/uL Baso # (Auto) 0.0 (0.0-0.2) X10*3/uL Abs Immat Gran (auto) 0.04 H (0.00-0.03) X10*3/uL Absolute Neuts (auto) 5.4 (2.0-8.3) x10*3/uL Absolute Nucleated RBC 0.000 (0.0-0.012) X10*3/uL Nucleated RBC % (auto) 0.0 (0.0-0.2) /100WBC PT 12.6 (11.2-13.5) SEC INR 1.0 (0.9-1.1) VBG pH 7.44 H (7.32-7.43) VBG pCO2 40 mmHg VBG pO2 45 mmHg VBG HCO3 27 H (22-26) mmol/L VBG O2 Saturation 71.0 % VBG Base Excess 3.3 mmol/L Sodium 143 (135-145) mmol/L Potassium 4.8 D (3.3-5.1) mmol/L Chloride 108 (96-108) mmol/L Carbon Dioxide 25 (22-29) mmol/L Anion Gap 15 (12-20) BUN 18 H (9-16) mg/dL Creatinine 0.83 (0.5-1.4) mg/dL Estim Creat Clear Calc 41.7 Estimated GFR > 60 Random Glucose 96 (60-115) mg/dL Lactic Acid 1.4 (0.5-2.0) mmol/L Calcium 9.2 (8.4-10.2) mg/dL Total Bilirubin 0.5 (0.0-1.0) mg/dL AST 34 H (5-31) U/L ALT 16 (0-31) U/L Alkaline Phosphatase 101 (39-117) U/L Troponin I High Sens 11.3 (<3.5-17.0) ng/L Total Protein 7.4 (6.5-8.0) g/dL Albumin 4.5 (3.5-5.0) g/dL Urine Color Urine Appearance Urine pH (5.0-9.0) Ur Specific [place] (1.005-1.025) Urine Protein (Neg-Trace) mg/dL Urine Glucose (UA) (Negative) mg/dL Urine Ketones (Negative) mg/dL Urine Blood (Negative) Urine Nitrite (Negative) Ur Leukocyte Esterase (Negative) Urine RBC (0-2) /HPF Urine WBC (0-5) /HPF Ur Squamous Epith Cells (0-2) /HPF Urine Bacteria (None Seen) Hyaline Casts (0-2) /LPF Influenza Type A (PCR) POSITIVE A (Negative) Influenza Type B (PCR) NEGATIVE (Negative) RSV RNA Qual (PCR) NEGATIVE (Negative) SARS-CoV-2 RNA (RT-PCR) NEGATIVE (Negative) 07/07/25 Range/Units 04:51 WBC (4.8-10.8) X10*3/uL RBC (4.20-5.50) X10*6/uL Hgb (12.0-16.0) g/dl Hct (37.0-47.0) % MCV (80.0-98.0) fL MCH (27.0-33.0) pg MCHC (31.0-35.0) g/dl RDW (11.0-16.0) % Plt Count (160-400) X10*3/uL MPV (9.4-12.3) fL Immature Gran % (Auto) (0.0-0.4) % Neut % (Auto) (45-73) % Lymph % (Auto) (20-40) % [place] % (Auto) (2-11) % Eos % (Auto) (0-4) % Baso % (Auto) (0-2) % Lymph # (Auto) (1.2-4.9) X10*3/uL [place] # (Auto) (0.1-1.2) X10*3/uL Eos # (Auto) (0.0-0.4) X10*3/uL Baso # (Auto) (0.0-0.2) X10*3/uL Abs Immat Gran (auto) (0.00-0.03) X10*3/uL Absolute Neuts (auto) (2.0-8.3) x10*3/uL Absolute Nucleated RBC (0.0-0.012) X10*3/uL Nucleated RBC % (auto) (0.0-0.2) /100WBC PT (11.2-13.5) SEC INR (0.9-1.1) VBG pH (7.32-7.43) VBG pCO2 mmHg VBG pO2 mmHg VBG HCO3 (22-26) mmol/L VBG O2 Saturation % VBG Base Excess mmol/L Sodium (135-145) mmol/L Potassium (3.3-5.1) mmol/L Chloride (96-108) mmol/L Carbon Dioxide (22-29) mmol/L Anion Gap (12-20) BUN (9-16) mg/dL Creatinine (0.5-1.4) mg/dL Estim Creat Clear Calc Estimated GFR Random Glucose (60-115) mg/dL Lactic Acid (0.5-2.0) mmol/L Calcium (8.4-10.2) mg/dL Total Bilirubin (0.0-1.0) mg/dL AST (5-31) U/L ALT (0-31) U/L Alkaline Phosphatase (39-117) U/L Troponin I High Sens (<3.5-17.0) ng/L Total Protein (6.5-8.0) g/dL Albumin (3.5-5.0) g/dL Urine Color Yellow Urine Appearance Clear Urine pH 6.0 (5.0-9.0) Ur Specific [place] 1.025 (1.005-1.025) Urine Protein 30 (1+) H (Neg-Trace) mg/dL Urine Glucose (UA) Negative (Negative) mg/dL Urine Ketones Negative (Negative) mg/dL Urine Blood Negative (Negative) Urine Nitrite Negative (Negative) Ur Leukocyte Esterase Negative (Negative) Urine RBC 0-2 (0-2) /HPF Urine WBC 0-5 (0-5) /HPF Ur Squamous Epith Cells 0-2 (0-2) /HPF Urine Bacteria None Seen (None Seen) Hyaline Casts 0-2 (0-2) /LPF Influenza Type A (PCR) (Negative) Influenza Type B (PCR) (Negative) RSV RNA Qual (PCR) (Negative) SARS-CoV-2 RNA (RT-PCR) (Negative) Independent Interpretation I performed an independent interpretation of an: EKG and Plain X-Ray Interpretation: My independent interpretation of the chest x-ray reveals no consolidations, pulmonary edema, pleural effusion, pneumothorax, obvious bony abnormalities. My independent interpretation of the ECG reveals normal sinus rhythm with rate of 77, normal axis, normal intervals, no ST elevations or depressions to suggest ischemic changes, relatively unchanged from previous on 11/18/2024. Radiology Impression Discussion of test interpretation with radiology: I have reviewed the radiologist's reading. Independent Historian Clinical information obtained from an independent historian. History obtained from or confirmed by: EMS External Record Review External record reviewed: Inpatient record and Outpatient record Prescription Management I considered prescription management with: Antiviral Chronic Conditions Patient?s care impacted by: Other (Parkinson's disease) Social Determinants Patient?s care significantly limited by Social Determinants of Health including: Other Social Determinant of Health Discharge Plan Discharge Clinical Impression: Influenza A, Acute febrile illness, Acute dehydration Patient Disposition: Xfer SNF Instructions: Influenza (ED) Additional Instructions: Take your antiviral as prescribed until the course is completed. Do not stop this medication early if you start to feel better. Return to the emergency department with any new or worsening symptoms including: Worsening pain, fevers greater than 100? despite antiviral treatment, vomiting, or any new symptom that concerns you. Call 911 with any medical emergency. Prescriptions: New oseltamivir [Tamiflu] 30 mg capsule 30 mg PO BID 5 Days Qty: 10 0RF No Action (DME) Custom shoes See Rx Instructions .Route .MEDSUPPLY Qty: 1 0RF Rx Instructions: Please dispense extra-depth shoes with 3 pairs of custom-molded inserts. acetaminophen [Tylenol Arthritis Pain] 650 mg tablet extended release 1,300 mg PO DAILY PRN (Reason: Pain) Print Language: [place]
== END 2025-07-07 09:25 | disposition skilled nursing facility (03) ==
PROVIDERS: Emergency Provider Emergency Medicine
DX: J10.1 Influenza due to other identified influenza virus with other respiratory manifestations (principal); R50.9 Fever, unspecified; E86.0 Dehydration; R06.02 Shortness of breath; I10 Essential (primary) hypertension; J44.9 Chronic obstructive pulmonary disease, unspecified; G20.A1 Parkinson's disease without dyskinesia, without mention of fluctuations; F02.80 Dementia in other diseases classified elsewhere, unspecified severity, without behavioral disturbance, psychotic disturbance, mood disturbance, and anxiety; Z91.148 Patient's other noncompliance with medication regimen for other reason; Z03.818 Encounter for observation for suspected exposure to other biological agents ruled out; Z86.718 Personal history of other venous thrombosis and embolism; Z79.899 Other long term (current) drug therapy
CPT/HCPCS: 51701; 71045; 80053; 81001; 82803; 83605; 84484; 85025; 85610; 87040; 87637; 93005; 96361; 96365; 96367; 96375; 99285; J0131; J0692; J3374; J7120

== ENCOUNTER → 2025-07-07 04:07 | Outpatient (BNV) | payer MEDICARE, OTHER, SELFPAY | PROVIDERS: Emergency Provider Emergency Medicine; Visit Provider Internal Medicine | DX: R94.31 Abnormal electrocardiogram [ECG] [EKG] (principal); R06.02 Shortness of breath | CPT/HCPCS: 93010 ==